=== PATIENT | female | born 1985 ===

== ENCOUNTER 2016-12-05 08:02 | Day surgery (SDC) | payer OTHER ==
[2016-12-05 08:30] VITALS: BMI 24.8
[2016-12-05] MEDS ORDERED: Propofol 10 mg/ml Inj (20 ML) ONE (09:44)
[2016-12-05] MEDS ORDERED: Lactated Ringer's 1,000 ML IV SCH (09:45)
[2016-12-07 15:20] VITALS: O2SAT 100
[2016-12-07 15:27] VITALS: RESP 18
[2016-12-07 15:29] VITALS: BP 95/59; PULSE 55; TEMP 97.8
== END 2016-12-05 11:20 | disposition home or self-care (01) ==
LOC: C.ENDO 08:02
PROVIDERS: ATTEND Internal Medicine Gastroenterology
DX: R13.10 Dysphagia, unspecified (principal); K29.70 Gastritis, unspecified, without bleeding; E03.9 Hypothyroidism, unspecified
CPT/HCPCS: 43239; 84703; 88305; 88312; 88313 ×2; 88342 ×2; J2704; J7120

== ENCOUNTER 2016-12-12 03:46 | Observation (INO) | payer OTHER ==
[2016-12-12 03:46] VITALS: BMI 24.8
[2016-12-12 03:58] VITALS: O2SAT 100
[2016-12-12] MEDS ORDERED: Sodium Chloride 0.9% 1,000 ML IV STA (04:35)
[2016-12-12 05:17] LABS: BASO % 0.8 % (0.0-2.0); EOS # 0.3 K/uL (0.0-0.7); EOS % 4.1 % (0.0-4.0); HEMATOCRIT 40.7 % (34.0-47.0); LYMPH # 2.2 K/uL (1.0-4.3); LYMPH % 34.2 % (20.0-40.0); MEAN CELL VOLUME 91.5 fL (81.0-99.0); MEAN CORPUSCULAR HEMOGLOBIN 30.6 pg (27.0-31.0); MEAN CORPUSCULAR HGB CONC 33.5 g/dL (33.0-37.0); MEAN PLATELET VOLUME 8.9 fL (7.2-11.7); MONO # 0.4 K/uL (0.0-0.8); RED CELL DISTRIBUTION WIDTH 12.2 % (11.5-14.5); WHITE BLOOD COUNT 6.4 K/uL (4.8-10.8)
[2016-12-12 05:20] LABS: RBC URINE < 1 /hpf (0-3); URINE BILIRUBIN NEGATIVE (NEGATIVE); URINE BLOOD NEGATIVE (NEGATIVE); URINE COLOR Straw (YELLOW); URINE GLUCOSE (UA) NORMAL (Normal); URINE KETONE NEGATIVE (NEGATIVE); URINE LEUKOCYTE ESTERASE NEG Leu/uL (Negative); URINE PROTEIN NEGATIVE (NEGATIVE); URINE UROBILINOGEN NORMAL mg/dL (0.2-1.0); WBC URINE 1 /hpf (0-5)
[2016-12-12 05:26] LABS: CHLORIDE 101 mmol/L (98-107); POTASSIUM 3.8 mmol/L (3.6-5.2); SODIUM 138 mmol/L (132-148)
[2016-12-12 05:28] LABS: ALB/GLOB RATIO 1.1 (1.0-2.1); ALKALINE PHOSPHATASE 49 U/L (38-126); ALT/SGPT 26 U/L (9-52); AMYLASE 92 U/L (30-110); AST/SGOT 23 U/L (14-36); BILIRUBIN,TOTAL 0.6 mg/dL (0.2-1.3); BLOOD UREA NITROGEN 12 mg/dL (7-17); CARBON DIOXIDE 26 mmol/L (22-30); GFR AFRICAN-AMERICAN > 60; GLUCOSE,RANDOM 91 mg/dL (65-105); TOTAL PROTEIN 7.9 g/dL (6.3-8.3)
[2016-12-12 05:29] LABS: CALCIUM 8.8 mg/dl (8.6-10.4)
--- NOTE | 2016-12-12 05:43 | C.PDOC ---
History Of Present Illness Patient is a 31 year old female that presents to the ER with a complaint of constipation, nausea, and abdominal pain for the past week. Patient states she has a history of hypothyroidism and constipation. Patient reports being admitted from the to the 10 of September last year for a surgical procedure that would help alleviate her constipation, performed by Dr. Nguyen. Denies any fever, chills, or vomiting. Time Seen by Provider: 12/12/16 04:16 Chief Complaint (Nursing): Abdominal Pain History Per: Patient History/Exam Limitations: no limitations Onset/Duration Of Symptoms: Days (1 week) Current Symptoms Are (Timing): Still Present Location Of Pain/Discomfort: RLQ, Periumbilical Associated Symptoms: Nausea, Constipation. denies: Fever, Chills, Vomiting, Diarrhea Past Medical History Reviewed: Historical Data, Nursing Documentation, Vital Signs Vital Signs: Last Vital Signs Temp 98.3 F 12/12/16 03:55 Pulse 64 12/12/16 03:55 Resp 16 12/12/16 03:55 BP 130/90 12/12/16 03:55 Pulse Ox 100 12/12/16 05:53 - Medical History PMH: Hypothyroidism, Migraine Surgical History: Endoscopy - [facility] Procedures IRRIGATION OF LOWER GI USING IRRIGATING SUBSTANCE, ENDO (09/05/16) Family History: States: Unknown Family Hx - Social History Hx Tobacco Use: No Hx Alcohol Use: No Hx Substance Use: No - Immunization History Hx Tetanus Toxoid Vaccination: Yes Hx Influenza Vaccination: Yes Hx Pneumococcal Vaccination: No Review Of Systems Except As Marked, All Systems Reviewed And Found Negative. Constitutional: Negative for: Fever, Chills Cardiovascular: Negative for: Chest Pain, Palpitations Respiratory: Negative for: Cough, Shortness of Breath Gastrointestinal: Positive for: Nausea, Abdominal Pain, Constipation. Negative for: Vomiting, Diarrhea Physical Exam - Physical Exam Appears: Non-toxic Skin: Normal Color, Warm, Dry Head: Atraumatic, Normacephalic Eye(s): bilateral: Normal Inspection Oral Mucosa: Moist Tongue: Normal Appearing Chest: Symmetrical Cardiovascular: Rhythm Regular Respiratory: Normal Breath Sounds, No Rales, No Rhonchi, No Wheezing Gastrointestinal/Abdominal: Soft, Tenderness (Periumbilical, right lower quadrant), No Distention, No Guarding, No Rebound Neurological/Psych: Oriented x3, Normal Speech, Normal Cognition ED Course And Treatment - Laboratory Results Result Diagrams: 12/12/16 05:14 12/12/16 05:14 O2 Sat by Pulse Oximetry: 100 (Room air) Pulse Ox Interpretation: Normal Progress Note: Blood work and abdomen x-ray ordered. IV fluids administered. Disposition - Disposition Disposition Time: 06:58 Condition: FAIR - Clinical Impression Clinical Impression: Constipation, Abdominal pain - Scribe Statement The provider has reviewed the documentation as recorded by the Scribe Puneet Oliveira All medical record entries made by the Misaibe were at my direction and personally dictated by me. I have reviewed the chart and agree that the record accurately reflects my personal performance of the history, physical exam, medical decision making, and the department course for this patient. I have also personally directed, reviewed, and agree with the discharge instructions and disposition. Physician Patient Turnover Patient Signed Over To: Skye Kent Handoff Comments: CT abdomen and dispo are pending
[2016-12-12 05:59] LABS: THYROID STIMULATING HORMONE < 0.02 mIU/L (0.46-4.68)
[2016-12-12] MEDS ORDERED: Iohexol 240 (50 ml) PO STA (06:08)
[2016-12-12] MEDS ORDERED: Iohexol 240 (50 ml) ONE (06:21)
--- NOTE | 2016-12-12 08:58 | RAD ---
Abdomen two views History: Pain. Constipation. Comparison: None available. Findings: Moderate to severe fecal retention in the colon. No evidence of gross bowel obstruction. Impression: Moderate to severe fecal retention in the colon.
[2016-12-12] MEDS ORDERED: Iodixanol 320 MG/ML 100 ML BOTTLE IV ONE (09:32)
--- NOTE | 2016-12-12 10:34 | CT ---
PROCEDURE: CT Abdomen and Pelvis with oral and IV contrast. HISTORY: RLQ abd pain, nausea, constipation COMPARISON: CT abdomen and pelvis with contrast performed 09/06/16 TECHNIQUE: Contiguous axial images of the abdomen and pelvis. Oral and IV contrast was administered. Coronal and Sagittal reformats generated and reviewed. Contrast dose: 100 mL Visipaque Radiation dose: Total exam DLP = 441.02 MGy-cm. FINDINGS: LOWER THORAX: No visible consolidation, pleural effusion, or pneumothorax. LIVER: 1.5 cm hepatic dome hypodensity, indeterminate. Diffuse hypoattenuation of the liver compatible with hepatic steatosis. GALLBLADDER AND BILE DUCTS: Unremarkable. PANCREAS: Unremarkable. SPLEEN: Unremarkable. ADRENALS: Unremarkable. KIDNEYS AND URETERS: The kidneys enhance symmetrically. Mild hydronephrosis and hydroureter of the right kidney without obstructing calculus identified. The left kidney appears unremarkable. BLADDER: The urinary bladder appears unremarkable. REPRODUCTIVE: Uterus is present. 1.9 cm cystic lesion, likely right ovarian cyst. APPENDIX: The appendix appears within normal limits of caliber without evidence of obstruction. BOWEL: The stomach is nondistended. The bowel loops appear within normal limits of caliber without evidence of intestinal obstruction. Severe constipation. The sigmoid colon appears redundant. Question region of narrowing involving the left colon (coronal image 66) PERITONEUM: No significant free fluid. No definite free air. LYMPH NODES: No bulky lymphadenopathy identified. VASCULATURE: No aortic aneurysm. BONES: No acute osseous abnormality is detected. OTHER FINDINGS: Tiny fat containing umbilical hernia. Small hiatal hernia with evidence of gastroesophageal reflux. IMPRESSION: Severe constipation. Question region of colonic narrowing within the left colon as above. Mild right-sided hydronephrosis and hydroureter without obstructing calculus evident. Hepatic steatosis. Indeterminate 1.5 cm hepatic dome hypodensity. Probable 1.9 cm right ovarian cyst. Pelvic ultrasound may be considered for further evaluation. Small hiatal hernia with evidence of gastroesophageal reflux.
[2016-12-12 13:29] VITALS: RESP 18
[2016-12-12] MEDS ORDERED: Peg-Electrolyte Oral Soln 4L (Golytely) PO ONE (15:08)
[2016-12-12 16:42] VITALS: BP 106/58; PULSE 62; TEMP 98.6
== END 2016-12-12 16:35 | disposition home or self-care (01) ==
LOC: C.ER 03:46 → C.9E 15:29
PROVIDERS: ADMIT Hospitalist; ATTEND Hospitalist
DX: R10.31 Right lower quadrant pain (principal); K59.00 Constipation, unspecified; E03.9 Hypothyroidism, unspecified
CPT/HCPCS: 74000; 74177; 80053; 81001; 82150; 83690; 84439; 84443; 85025; 96374; 99285; G0378; J1885; J7040; Q9966; Q9967

== ENCOUNTER 2017-02-24 14:14 | Inpatient (IN) | payer OTHER ==
[2017-02-24 14:15] VITALS: BMI 26.4
--- NOTE | 2017-02-24 15:36 | C.PDOC ---
History Of Present Illness 32 year old female presents to the ED with complaints of constipation for 18 days with associated nausea and vomiting. Patient states she was sent to the ED from the clinic for further evaluation since extensive medical treatment has been given with no relief. She also notes she has been unable to tolerate food or drink PO for three days. She notes history of thyroid disease and denies any past surgeries, diarrhea, or fever. Time Seen by Provider: 02/24/17 14:35 Chief Complaint (Nursing): Abdominal Pain History Per: Patient, Family History/Exam Limitations: no limitations Onset/Duration Of Symptoms: Persistent (18 days ) Current Symptoms Are (Timing): Still Present Location Of Pain/Discomfort: Diffuse Radiation Of Pain To:: None Quality Of Discomfort: "Pain" Associated Symptoms: Nausea, Vomiting, Constipation. denies: Fever, Chills, Diarrhea Abnormal Vaginal Bleeding: No Past Medical History Reviewed: Historical Data, Nursing Documentation, Vital Signs Vital Signs: Last Vital Signs Temp 98.4 F 02/24/17 14:26 Pulse 67 02/24/17 14:26 Resp 18 02/24/17 14:26 BP 109/74 02/24/17 14:26 Pulse Ox 100 02/24/17 17:58 - Medical History PMH: Hypothyroidism, Migraine Surgical History: Endoscopy - [facility] Procedures IRRIGATION OF LOWER GI USING IRRIGATING SUBSTANCE, ENDO (09/05/16) Family History: States: Unknown Family Hx - Social History Hx Tobacco Use: No Hx Alcohol Use: No Hx Substance Use: No - Immunization History Hx Tetanus Toxoid Vaccination: Yes Hx Influenza Vaccination: Yes Hx Pneumococcal Vaccination: No Review Of Systems Constitutional: Negative for: Fever, Chills, Sweats Cardiovascular: Negative for: Chest Pain, Palpitations Respiratory: Negative for: Cough, Shortness of Breath Gastrointestinal: Positive for: Nausea, Vomiting, Abdominal Pain, Constipation. Negative for: Diarrhea Genitourinary: Positive for: Other (Patient notes urination requires force ). Negative for: Hematuria Physical Exam - Physical Exam Additional Physical Exam Comments: Constitutional: No acute distress. Head: Normocephalic. Atraumatic. Eyes: PERRL. ENT: Moist mucous membranes. Neck: Supple. Cardiovascular: Regular rate. Radial pulse 2+ bilaterally. Chest: No tenderness. Respiratory: Clear to auscultation bilaterally. GI: Soft. Diffuse abdominal tenderness. Nondistended. Back: No CVA tenderness. Musculoskeletal: No tenderness or swelling of extremities. Skin: No rash. Neurologic: Alert, no focal deficit. ED Course And Treatment - Laboratory Results Result Diagrams: 02/24/17 15:41 02/24/17 15:41 O2 Sat by Pulse Oximetry: 100 Medical Decision Making Medical Decision Making: Spoke with clinical psychiatrist Dr. Archuleta who saw patient in the clinic. A biopsy performed confirmed a constipation disease and extensive medicine therapy was given with no relief. Patient has had previous rigid sigmoidoscopy in the past. Dr. Archuleta recommends CT of the abdomen to rule out obstruction and inpatient treatment for constipation since outpatient has failed. Accession No. : [id number] Patient Name / ID : SIXTO MCLAUGHLIN / [id number] Exam Date : 02/24/2017 17:52:01 ( Approved ) Study Comment : Sex / Age : F / 32Y Creator : CARLOS MANUEL JONES MD Dictator : CARLOS MANUEL JONES MD Cardiovascular Radiologic Technologist : Scalehouse Attendant : CARLOS MANUEL JONES MD Approver2 : Report Date : 02/24/2017 18:24:39 My Comment : PROCEDURE: CT Abdomen and Pelvis with contrast HISTORY: constipation, r/o obstruction COMPARISON: 12/12/2016 TECHNIQUE: Contrast dose: 100 CC Visipaque the 320 Radiation dose: Total exam DLP = mGy-cm. This CT exam was performed using one or more of the following dose reduction techniques: Automated exposure control, adjustment of the mA and/or kV according to patient size, and/or use of iterative reconstruction technique. FINDINGS: LOWER THORAX: The lung bases are clear. LIVER: There is a stable 1.6 cm hyperdense lesion in the hepatic dome. The liver is normal in size. There is homogeneous enhancement. No intra or extrahepatic biliary ductal dilatation. GALLBLADDER AND BILE DUCTS: No calcified gallstones. PANCREAS: The pancreas is normal in size and there is homogeneous enhancement. No gross lesion or ductal dilatation. SPLEEN: The spleen is normal in size and there is homogeneous enhancement. ADRENALS: Both adrenal glands are normal in size without discrete nodule. KIDNEYS AND URETERS: Both kidneys are normal in size and there is homogeneous enhancement without hydronephrosis or focal mass. VASCULATURE: Normal in appearance. No aortic aneurysm. BOWEL: The small bowel loops are normal in caliber. There is large amount of stool in the colon and fecal retention in antral redundant sigmoid. No evidence of bowel obstruction APPENDIX: Normal appendix. PERITONEUM: No free fluid. No free air. LYMPH NODES: No enlarged lymph nodes. BLADDER: Grossly within normal limits hair. REPRODUCTIVE: Unremarkable. BONES: No acute fracture. OTHER FINDINGS: None. IMPRESSION: 1. Severe constipation with fecal retention in the redundant sigmoid colon. No evidence of bowel obstruction. 2. Stable 1.6 cm lesion in the hepatic dome which may represent a complicated cyst or hemangioma. A dedicated right upper quadrant ultrasound is recommended for further characterization. Dr. Ugalde accepts patient to hospitalist service. I informed her that Dr. Archuleta' s group will be GI consult and patient will need surgical consult for further recommendations. ED OBSERVATION Date of observation admission: 02/24/17 Time of observation admission: 15:11 - Observation admission statement Patient is being placed in observation because:: constipation - Goals of Observation Goals of observation are:: monitoring prior to CT abdomen - Progress Note Progress Note: 1511 Will draw labs and send for CT. [address] Patient in no acute distress. 1758 CT performed, pending read. Labs unremarkable. Disposition - Disposition Disposition: HOSPITALIZED Disposition Time: 18:32 Condition: FAIR - Clinical Impression Clinical Impression: Constipation, Failure of outpatient treatment - Scribe Statement The provider has reviewed the documentation as recorded by the Misaibwilla Stein All medical record entries made by the Maribell were at my direction and personally dictated by me. I have reviewed the chart and agree that the record accurately reflects my personal performance of the history, physical exam, medical decision making, and the department course for this patient. I have also personally directed, reviewed, and agree with the discharge instructions and disposition.
[2017-02-24 15:45] LABS: BASO % 0.6 % (0.0-2.0); EOS # 0.1 K/uL (0.0-0.7); EOS % 1.7 % (0.0-4.0); HEMATOCRIT 37.1 % (34.0-47.0); LYMPH % 26.1 % (20.0-40.0); MEAN CELL VOLUME 90.9 fL (81.0-99.0); MEAN CORPUSCULAR HEMOGLOBIN 30.9 pg (27.0-31.0); MEAN PLATELET VOLUME 8.8 fL (7.2-11.7); MONO # 0.4 K/uL (0.0-0.8); MONO % 5.2 % (0.0-10.0); RED CELL DISTRIBUTION WIDTH 12.6 % (11.5-14.5); WHITE BLOOD COUNT 7.7 K/uL (4.8-10.8)
[2017-02-24 15:53] LABS: CHLORIDE 101 mmol/L (98-107)
[2017-02-24 15:54] LABS: POTASSIUM 4.3 mmol/L (3.6-5.2); SODIUM 136 mmol/L (132-148)
[2017-02-24 15:56] LABS: ALB/GLOB RATIO 1.5 (1.0-2.1); ALKALINE PHOSPHATASE 53 U/L (38-126); ALT/SGPT 25 U/L (9-52); AST/SGOT 22 U/L (14-36); BILIRUBIN,TOTAL 0.8 mg/dL (0.2-1.3); BLOOD UREA NITROGEN 19 mg/dL (7-17); CARBON DIOXIDE 22 mmol/L (22-30); GFR AFRICAN-AMERICAN > 60; GLUCOSE,RANDOM 62 mg/dL (65-105); RBC URINE 1 /hpf (0-3); TOTAL PROTEIN 7.6 g/dL (6.3-8.3); URINE BILIRUBIN NEGATIVE (NEGATIVE); URINE BLOOD NEGATIVE (NEGATIVE); URINE COLOR Yellow (YELLOW); URINE GLUCOSE (UA) NORMAL (Normal); URINE KETONE 2+ mg/dL (NEGATIVE); URINE LEUKOCYTE ESTERASE 2+ Leu/uL (Negative); URINE PROTEIN 1+ mg/dL (NEGATIVE); URINE UROBILINOGEN NORMAL mg/dL (0.2-1.0); WBC URINE 22 /hpf (0-5)
[2017-02-24 15:57] LABS: CALCIUM 8.8 mg/dl (8.6-10.4)
[2017-02-24] MEDS ORDERED: Iodixanol 320 MG/ML 100 ML BOTTLE IV ONE (17:37)
--- NOTE | 2017-02-24 18:26 | CT ---
PROCEDURE: CT Abdomen and Pelvis with contrast HISTORY: constipation, r/o obstruction COMPARISON: 12/12/2016 TECHNIQUE: Contrast dose: 100 CC Visipaque the 320 Radiation dose: Total exam DLP = mGy-cm. This CT exam was performed using one or more of the following dose reduction techniques: Automated exposure control, adjustment of the mA and/or kV according to patient size, and/or use of iterative reconstruction technique. FINDINGS: LOWER THORAX: The lung bases are clear. LIVER: There is a stable 1.6 cm hyperdense lesion in the hepatic dome. The liver is normal in size. There is homogeneous enhancement. No intra or extrahepatic biliary ductal dilatation. GALLBLADDER AND BILE DUCTS: No calcified gallstones. PANCREAS: The pancreas is normal in size and there is homogeneous enhancement. No gross lesion or ductal dilatation. SPLEEN: The spleen is normal in size and there is homogeneous enhancement. ADRENALS: Both adrenal glands are normal in size without discrete nodule. KIDNEYS AND URETERS: Both kidneys are normal in size and there is homogeneous enhancement without hydronephrosis or focal mass. VASCULATURE: Normal in appearance. No aortic aneurysm. BOWEL: The small bowel loops are normal in caliber. There is large amount of stool in the colon and fecal retention in antral redundant sigmoid. No evidence of bowel obstruction APPENDIX: Normal appendix. PERITONEUM: No free fluid. No free air. LYMPH NODES: No enlarged lymph nodes. BLADDER: Grossly within normal limits hair. REPRODUCTIVE: Unremarkable. BONES: No acute fracture. OTHER FINDINGS: None. IMPRESSION: 1. Severe constipation with fecal retention in the redundant sigmoid colon. No evidence of bowel obstruction. 2. Stable 1.6 cm lesion in the hepatic dome which may represent a complicated cyst or hemangioma. A dedicated right upper quadrant ultrasound is recommended for further characterization.
--- NOTE | 2017-02-24 19:30 | CP.PCM.HP ---
<Tasha Houston - Last Filed: 02/24/17 21:11> History of Present Illness - History of Present Illness History of Present Illness: CC: abdominal pain with constipation HPI: 32 yo female with PMHx significant for hypothyroidism and recurrent constipation presents with complaints of abdominal pain and constipation for approximately 18-20 days. The pain is crampy and sharp located diffusely all over the abdomen rated a 10/11 in intensity. Patient has been severely constipated with now new onset nausea and vomiting associated with meals for the past couple of days while on Linzess therapy. Patient was evaluated in the GI clinic today by Dr. Astudillo who later referred her to the ED due to failed outpatient therapy. Patient states that she is limited to sips of soup and a few bites of rice. Patient states that the pain is uncomfortable, limiting her from daily activities. She also admits to two recent episodes of dysuria. She admits to losing eight pounds in the past two weeks due to her symptoms. She denies urinary frequency or urgency. She also denied headaches, chest pain, palpitations, paresthesias, hematemesis, hematochezia, diarrhea, subjective fevers or chills or recent travel at this time. PMHx: hypothyroidism, recurrent constipation PSHx: denies Fam Hx: Paternal grandfather has DM, Paternal grandmother had an AL, Paternal uncle with Lung CA Medications: Levothyroxine 175 mcg daily, Linzess 290 mcg once a day ( past two weeks) Allergies: NKDA, nor food allegies Social: denies ever smoking or using illicit drugs, she admits to last drinking alcohol on a social basis approx 4 years ago. PMD- None GI: Dr. Astudillo Present on Admission - Present on Admission Any Indicators Present on Admission: No Review of Systems - Constitutional Constitutional: Chills. absent: Fever, Frequent Falls, Headache, Increased Appetite - EENT Eyes: absent: Blurred Vision, Change in Vision Nose/Mouth/Throat: absent: Nasal Congestion - Cardiovascular Cardiovascular: absent: Chest Pain - Respiratory Respiratory: absent: Cough, Dyspnea - Gastrointestinal Gastrointestinal: Abdominal Pain, Constipation, Nausea, Vomiting. absent: Diarrhea - Genitourinary Genitourinary: Dysuria. absent: Difficulty Urinating, Urinary Frequency - Musculoskeletal Musculoskeletal: Back Pain - Integumentary Integumentary: Unusual Bruising - Neurological Neurological: absent: Paresthesias, Tingling - Psychiatric Psychiatric: absent: Anxiety - Endocrine Endocrine: absent: Change in Body Appearance - Hematologic/Lymphatic Hematologic: Easy Bruising Past Patient History - Infectious Disease Hx of Infectious Diseases: None - Past Medical History & Family History Past Medical History?: No - Past Social History Smoking Status: Never Smoked Alcohol: Occasional - CARDIAC Hx Cardiac Disorders: No - PULMONARY Hx Respiratory Disorders: No - NEUROLOGICAL Hx Migraine: Yes - HEENT Hx HEENT Problems: No - RENAL Hx Chronic Kidney Disease: No - ENDOCRINE/METABOLIC Hx Hypothyroidism: Yes - HEMATOLOGICAL/ONCOLOGICAL Hx Blood Disorders: No Hx Blood Transfusions: No - INTEGUMENTARY Hx Dermatological Problems: No - MUSCULOSKELETAL/RHEUMATOLOGICAL Hx Musculoskeletal Disorders: Yes Hx Back Pain: Yes - GASTROINTESTINAL Hx Gastrointestinal Disorders: Yes Other/Comment: CONSTIPATION - GENITOURINARY/GYNECOLOGICAL Hx Genitourinary Disorders: No - PSYCHIATRIC Hx Substance Use: No - SURGICAL HISTORY Hx Surgeries: No - ANESTHESIA Hx Anesthesia: Yes Hx Anesthesia Reactions: No Hx Malignant Hyperthermia: No (UNKNOWN) Meds Allergies/Adverse Reactions: Allergies Allergy/AdvReac Type Severity Reaction Status Date / Time No Known Allergies Allergy Verified 02/24/17 14:33 Physical Exam - Constitutional Appears: Non-toxic, No Acute Distress - Head Exam Head Exam: ATRAUMATIC, NORMAL INSPECTION, NORMOCEPHALIC - Eye Exam Eye Exam: EOMI, Normal appearance, PERRL. absent: Scleral icterus Pupil Exam: NORMAL ACCOMODATION, PERRL - ENT Exam ENT Exam: Mucous Membranes Moist - Neck Exam Neck exam: Positive for: Full Rom - Respiratory Exam Respiratory Exam: Clear to Auscultation Bilateral, NORMAL BREATHING PATTERN. absent: Wheezes - Cardiovascular Exam Cardiovascular Exam: REGULAR RHYTHM, +S1, +S2 - GI/Abdominal Exam GI & Abdominal Exam: Normal Bowel Sounds, Soft, Tenderness (diffuse). absent: Distended, Firm, Guarding Additional comments: suprapubic tenderness - Extremities Exam Extremities exam: Positive for: full ROM, normal capillary refill, normal inspection, pedal pulses present - Back Exam Back exam: FULL ROM. absent: CVA tenderness (L), CVA tenderness (R) - Neurological Exam Neurological exam: Alert, CN II-XII Intact, Oriented x3 - Psychiatric Exam Psychiatric exam: Normal Affect, Normal Mood - Skin Skin Exam: Dry, Intact, Normal Color, Warm Results - Vital Signs Recent Vital Signs: Last Vital Signs Temp 97.4 F L 02/24/17 18:40 Pulse 87 02/24/17 18:40 Resp 20 02/24/17 18:40 BP 98/65 L 02/24/17 18:40 Pulse Ox 97 02/24/17 18:40 - Labs Result Diagrams: 02/24/17 15:41 02/24/17 15:41 Labs: Laboratory Results - last 24 hr 02/24/17 02/24/17 02/24/17 15:41 15:41 15:41 WBC 7.7 RBC 4.08 Hgb 12.6 Hct 37.1 MCV 90.9 MCH 30.9 MCHC 34.0 RDW 12.6 Plt Count 212 MPV 8.8 Neut % (Auto) 66.4 Lymph % (Auto) 26.1 Amelia % (Auto) 5.2 Eos % (Auto) 1.7 Baso % (Auto) 0.6 Neut # 5.1 Lymph # 2.0 Amelia # 0.4 Eos # 0.1 Baso # 0.0 Sodium 136 Potassium 4.3 Chloride 101 Carbon Dioxide 22 Anion Gap 17 BUN 19 H Creatinine 0.6 L Est GFR ( Amer) > 60 Est GFR (Non-Af Amer) > 60 Random Glucose 62 L Calcium 8.8 Total Bilirubin 0.8 AST 22 ALT 25 Alkaline Phosphatase 53 Total Protein 7.6 Albumin 4.6 Globulin 3.0 Albumin/Globulin Ratio 1.5 Lipase 65 Urine Color Yellow Urine Clarity Hazy Urine pH 5.0 Ur Specific Conklin 1.027 Urine Protein 1+ H Urine Glucose (UA) Normal Urine Ketones 2+ H Urine Blood Negative Urine Nitrate Negative Urine Bilirubin Negative Urine Urobilinogen Normal Ur Leukocyte Esterase 2+ H Urine WBC (Auto) 22 H Urine RBC (Auto) 1 Ur Squamous Epith Cells 15 H Urine HCG, Qual Negative Assessment & Plan (1) Constipation Assessment and Plan: Recurrent constipation- Failed outpatient therapy CT abdomen and pelvis- findings of severe constipation with fecal retention in sigmoid colon- Refer to complete report GI Dr. Day consulted- F/U Surgery- Dr. Nguyen consulted- F/U Fleet Enemas ordered Go-lytely ordered Monitor for BMs Status: Chronic (2) Abdominal pain Assessment and Plan: Recurrent constipation CT abdomen and pelvis- findings of severe constipation with fecal retention in sigmoid colon- Refer to complete report F/U executive talent acquisition consultant recommendations Zofran PRN Toradol 15 mg Q6 PRN for pain Status: Acute (3) Abnormal urinalysis Assessment and Plan: Dirty catch Repeat UA and UC- F/U Status: Acute (4) Hypothyroidism Assessment and Plan: Levothyroxine 175 mcg daily F/U thyroid studies in AM Status: Chronic (5) Prophylactic measure Assessment and Plan: SCDs Pepcid 20 mg IV Q12 Cont to monitor for BMs Status: Acute <Ede Radford - Last Filed: 02/25/17 06:23> Results - Vital Signs Recent Vital Signs: Last Vital Signs Temp 98.5 F 02/25/17 00:00 Pulse 68 02/25/17 00:00 Resp 20 02/25/17 00:00 BP 110/64 02/25/17 00:00 Pulse Ox 96 02/25/17 00:00 - Labs Result Diagrams: 02/24/17 15:41 02/24/17 15:41 Assessment & Plan - Date & Time Date: 02/25/17 (I have seen and examined the patient. I agree with the findings and plan of care as documented by Dr. Houston. Patient with constipation and prior history of severe constipation. Failed outpatient therapy. Consult to GI and surgery. Fleet enema and Go Lytely. Accompanied with abdominal pain. Avoid opiates. For history of hypothyroidism, continue home meds. Check TSH and thyroid hormone levels. Monitor for acute changes.) Time: 06:21 Attending/Attestation - Attestation I have personally seen and examined this patient.: Yes I have fully participated in the care of the patient.: Yes I have reviewed all pertinent clinical information: Yes
[2017-02-24] MEDS ORDERED: Peg-Electrolyte Oral Soln 4L (Golytely) PO ONE (20:48)
--- NOTE | 2017-02-24 21:29 | CP.PCM.CON ---
Past Patient History - Infectious Disease Hx of Infectious Diseases: None - Past Medical History & Family History Past Medical History?: No - Past Social History Smoking Status: Never Smoked Alcohol: Occasional - CARDIAC Hx Cardiac Disorders: No - PULMONARY Hx Respiratory Disorders: No - NEUROLOGICAL Hx Migraine: Yes - HEENT Hx HEENT Problems: No - RENAL Hx Chronic Kidney Disease: No - ENDOCRINE/METABOLIC Hx Hypothyroidism: Yes - HEMATOLOGICAL/ONCOLOGICAL Hx Blood Disorders: No Hx Blood Transfusions: No - INTEGUMENTARY Hx Dermatological Problems: No - MUSCULOSKELETAL/RHEUMATOLOGICAL Hx Musculoskeletal Disorders: Yes Hx Back Pain: Yes - GASTROINTESTINAL Hx Gastrointestinal Disorders: Yes Other/Comment: CONSTIPATION - GENITOURINARY/GYNECOLOGICAL Hx Genitourinary Disorders: No - PSYCHIATRIC Hx Substance Use: No - SURGICAL HISTORY Hx Surgeries: No - ANESTHESIA Hx Anesthesia: Yes Hx Anesthesia Reactions: No Hx Malignant Hyperthermia: No (UNKNOWN) Meds Allergies/Adverse Reactions: Allergies Allergy/AdvReac Type Severity Reaction Status Date / Time No Known Allergies Allergy Verified 02/24/17 14:33 - Medications Medications: Current Medications Famotidine (Pepcid) 20 mg IVP Q12 [facility] Ketorolac Tromethamine (Toradol) 15 mg IVP Q6 PRN PRN Reason: Pain, moderate (4-7) Levothyroxine Sodium (Synthroid) 175 mcg PO DAILY@0630 [facility] Ondansetron HCl (Zofran Inj) 4 mg IVP Q6H PRN PRN Reason: Nausea/Vomiting Sodium Phosphate (Fleet Enema) 135 ml [place] Q3H PRN Stop: 02/24/17 23:59 Results - Vital Signs Recent Vital Signs: Last Vital Signs Temp 98.9 F 02/24/17 20:10 Pulse 72 02/24/17 20:10 Resp 16 02/24/17 20:10 BP 102/69 02/24/17 20:10 Pulse Ox 99 02/24/17 20:10 - Labs Result Diagrams: 02/24/17 15:41 02/24/17 15:41
[2017-02-25 00:30] VITALS: RESP 20
[2017-02-25] MEDS: Levothyroxine 175 MCG TAB PO SCH (05:57)
[2017-02-25 07:00] LABS: BASO % 0.3 % (0.0-2.0); EOS # 0.1 K/uL (0.0-0.7); EOS % 1.5 % (0.0-4.0); HEMATOCRIT 36.2 % (34.0-47.0); LYMPH # 2.1 K/uL (1.0-4.3); LYMPH % 28.9 % (20.0-40.0); MEAN CELL VOLUME 90.2 fL (81.0-99.0); MEAN CORPUSCULAR HEMOGLOBIN 31.1 pg (27.0-31.0); MEAN CORPUSCULAR HGB CONC 34.4 g/dL (33.0-37.0); MEAN PLATELET VOLUME 8.9 fL (7.2-11.7); MONO # 0.4 K/uL (0.0-0.8); MONO % 5.9 % (0.0-10.0); RED CELL DISTRIBUTION WIDTH 12.5 % (11.5-14.5); WHITE BLOOD COUNT 7.4 K/uL (4.8-10.8)
--- NOTE | 2017-02-25 07:04 | CP.PCM.CON ---
History of Present Illness - History of Present Illness History of Present Illness: Gen Sx: Dr Nguyen CC: constipation Pt is a 32F w/ PMH significant for hypothyroidism and recurrent constipation. Pt known to service as she underwent disimpaction last decemeber. She presents with complaints of abdominal pain and constipation for approximately 18 days. The pain is cramping and mainly located in LLQ. Every time the pt eats she gets nauseous and vomits up her previous meals. She was recently started on Linzess therapy. Pt has lost close to 10 lbs over past 3 weeks because she has been unable to eat. Denies any hematemesis, hematochezia, diarrhea, fevers, chills, sob or cp. PMHx: hypothyroidism, recurrent constipation PSHx: denies Medications: Levothyroxine 175 mcg daily, Linzess 290 mcg daily Allergies: NKDA Review of Systems - Review of Systems All systems: reviewed and no additional remarkable complaints except (as per hpi ) Past Patient History - Infectious Disease Hx of Infectious Diseases: None - Past Medical History & Family History Past Medical History?: Yes - Past Social History Smoking Status: Never Smoked Alcohol: Occasional - CARDIAC Hx Cardiac Disorders: No - PULMONARY Hx Respiratory Disorders: No - NEUROLOGICAL Hx Migraine: Yes - HEENT Hx HEENT Problems: No - RENAL Hx Chronic Kidney Disease: No - ENDOCRINE/METABOLIC Hx Hypothyroidism: Yes - HEMATOLOGICAL/ONCOLOGICAL Hx Blood Disorders: No Hx Blood Transfusions: No - INTEGUMENTARY Hx Dermatological Problems: No - MUSCULOSKELETAL/RHEUMATOLOGICAL Hx Musculoskeletal Disorders: Yes Hx Back Pain: Yes - GASTROINTESTINAL Hx Gastrointestinal Disorders: Yes Other/Comment: CONSTIPATION - GENITOURINARY/GYNECOLOGICAL Hx Genitourinary Disorders: No - PSYCHIATRIC Hx Substance Use: No - SURGICAL HISTORY Hx Surgeries: No - ANESTHESIA Hx Anesthesia: Yes Hx Anesthesia Reactions: No Hx Malignant Hyperthermia: No (UNKNOWN) Meds Allergies/Adverse Reactions: Allergies Allergy/AdvReac Type Severity Reaction Status Date / Time No Known Allergies Allergy Verified 02/24/17 14:33 - Medications Medications: Current Medications Famotidine (Pepcid) 20 mg IVP Q12 [facility] Last Admin: 02/24/17 22:28 Dose: 20 mg Ketorolac Tromethamine (Toradol) 15 mg IVP Q6 PRN PRN Reason: Pain, moderate (4-7) Levothyroxine Sodium (Synthroid) 175 mcg PO DAILY@0630 [facility] Last Admin: 02/25/17 05:57 Dose: 175 mcg Ondansetron HCl (Zofran Inj) 4 mg IVP Q6H PRN PRN Reason: Nausea/Vomiting Physical Exam - Constitutional Appears: Non-toxic, No Acute Distress - Head Exam Head Exam: NORMOCEPHALIC - Respiratory Exam Respiratory Exam: absent: Accessory Muscle Use, Respiratory Distress - Cardiovascular Exam Cardiovascular Exam: REGULAR RHYTHM. absent: Tachycardia - GI/Abdominal Exam GI & Abdominal Exam: Guarding (voluntary), Mass (LLQ), Soft, Tenderness ( diffuse but worse in LLQ). absent: Distended, Firm - Rectal Exam Rectal Exam: Fecal Impaction - Extremities Exam Extremities exam: Negative for: pedal edema - Neurological Exam Neurological exam: Alert, Oriented x3 - Psychiatric Exam Psychiatric exam: Normal Affect, Normal Mood - Skin Skin Exam: Normal Color, Warm Results - Vital Signs Recent Vital Signs: Last Vital Signs Temp 98.5 F 02/25/17 00:00 Pulse 68 02/25/17 00:00 Resp 20 02/25/17 00:00 BP 110/64 02/25/17 00:00 Pulse Ox 96 02/25/17 00:00 - Labs Result Diagrams: 02/24/17 15:41 02/24/17 15:41 Assessment & Plan - Assessment and Plan (Free Text) Assessment: 32F with severe constipation Plan: attempted tap water enema, unsuccessful pt will likely require disimpaction may need prophylactic colectomy in future will d/r Dr Patrick Khan, PGY2 - Date & Time Date: 02/25/17 Time: 07:06
[2017-02-25 07:17] LABS: CHLORIDE 102 mmol/L (98-107)
[2017-02-25 07:18] LABS: SODIUM 135 mmol/L (132-148)
[2017-02-25 07:20] LABS: ALB/GLOB RATIO 1.3 (1.0-2.1); ALKALINE PHOSPHATASE 49 U/L (38-126); ALT/SGPT 13 U/L (9-52); AST/SGOT 19 U/L (14-36); BILIRUBIN,TOTAL 0.9 mg/dL (0.2-1.3); BLOOD UREA NITROGEN 15 mg/dL (7-17); CARBON DIOXIDE 19 mmol/L (22-30); GFR AFRICAN-AMERICAN > 60; GLUCOSE,RANDOM 70 mg/dL (65-105); TOTAL PROTEIN 7.1 g/dL (6.3-8.3)
[2017-02-25 07:21] LABS: CALCIUM 8.5 mg/dl (8.6-10.4); PHOSPHOROUS 4.8 mg/dL (2.5-4.5)
[2017-02-25 07:29] LABS: INR 1.1
[2017-02-25 07:58] LABS: THYROID STIMULATING HORMONE < 0.02 mIU/L (0.46-4.68)
[2017-02-25] MEDS ORDERED: Peg-Electrolyte Oral Soln 4L (Golytely) PO ONE (08:44)
--- NOTE | 2017-02-25 09:24 | CP.PCM.CON ---
<Lawson Moore - Last Filed: 02/25/17 09:25> History of Present Illness - History of Present Illness History of Present Illness: PGY4 GI Fellow Consult Note Patient is a 32yo female with PMHx significant for hypothyroidism and slow transit constipation who presents with abdominal pain and constipation. the patient is well known to our service and follows with our team in the [facility]. She has had multiple bouts of severe constipation previously and had an outpatient Sitz marker study which was positive. Patient was given Amitiza without relief and has been using Linzess over the past month or so with no real improvement in symptoms. She has tried supplementing these medications at home with enemas and milk of magnesia but has continued to suffer with constipation. At this time, she states that she hasn't had a BM in about 18 days and has developed severe, diffuse abdominal pain, nausea and daily bouts of vomiting. Admits to approximately 8lb weight loss and inability to tolerate PO. Separately, admits to persistence of dysphagia with difficulty swallowing solid food and sensation that food is getting stuck. Recent EGD was unremarkable. PMHx: See HPI PSHx: Denies FHx: Discussed with patient and denies any significant family history Social: Denies tobacco, EtOH or illict drug use Endo: EGD - 11/25 - Gastritis Colonoscopy - 05/27 - poor prep, internal hemorrhoids Review of Systems - Constitutional Constitutional: absent: Anorexia, Chills, Fever - EENT Eyes: absent: Change in Vision Nose/Mouth/Throat: absent: Sore Throat - Cardiovascular Cardiovascular: absent: Chest Pain, Dyspnea, Edema - Respiratory Respiratory: absent: Cough, Dyspnea, Excessive Mucous Production - Gastrointestinal Gastrointestinal: Abdominal Pain, Bloating, Constipation, Cramping, Dysphagia, Nausea, Vomiting. absent: Diarrhea, Hematemesis, Hematochezia, Melena, Odynophagia - Genitourinary Genitourinary: absent: Dysuria, Urinary Frequency, Urinary Urgency - Musculoskeletal Musculoskeletal: absent: Back Pain, Neck Pain - Integumentary Integumentary: absent: New Lesions, Rash - Neurological Neurological: absent: Dizziness, Numbness, Focal Weakness - Psychiatric Psychiatric: absent: Anxiety, Depression - Endocrine Endocrine: absent: Polydipsia, Polyphagia, Polyuria - Hematologic/Lymphatic Hematologic: absent: Easy Bleeding, Easy Bruising, Lymphadenopathy Past Patient History - Infectious Disease Hx of Infectious Diseases: None - Past Medical History & Family History Past Medical History?: Yes - Past Social History Smoking Status: Never Smoked Alcohol: Occasional - CARDIAC Hx Cardiac Disorders: No - PULMONARY Hx Respiratory Disorders: No - NEUROLOGICAL Hx Migraine: Yes - HEENT Hx HEENT Problems: No - RENAL Hx Chronic Kidney Disease: No - ENDOCRINE/METABOLIC Hx Hypothyroidism: Yes - HEMATOLOGICAL/ONCOLOGICAL Hx Blood Disorders: No Hx Blood Transfusions: No - INTEGUMENTARY Hx Dermatological Problems: No - MUSCULOSKELETAL/RHEUMATOLOGICAL Hx Musculoskeletal Disorders: Yes Hx Back Pain: Yes - GASTROINTESTINAL Hx Gastrointestinal Disorders: Yes Other/Comment: CONSTIPATION - GENITOURINARY/GYNECOLOGICAL Hx Genitourinary Disorders: No - PSYCHIATRIC Hx Substance Use: No - SURGICAL HISTORY Hx Surgeries: No - ANESTHESIA Hx Anesthesia: Yes Hx Anesthesia Reactions: No Hx Malignant Hyperthermia: No (UNKNOWN) Meds Allergies/Adverse Reactions: Allergies Allergy/AdvReac Type Severity Reaction Status Date / Time No Known Allergies Allergy Verified 02/24/17 14:33 - Medications Medications: Current Medications Bisacodyl (Dulcolax) 10 mg [place] BID [facility] Famotidine (Pepcid) 20 mg IVP Q12 [facility] Last Admin: 02/24/17 22:28 Dose: 20 mg Sodium Chloride (Sodium Chloride 0.9%) 1,000 mls @ 100 mls/hr IV .Q10H [facility] Ketorolac Tromethamine (Toradol) 15 mg IVP Q6 PRN PRN Reason: Pain, moderate (4-7) Levothyroxine Sodium (Synthroid) 175 mcg PO DAILY@0630 [facility] Last Admin: 02/25/17 05:57 Dose: 175 mcg Ondansetron HCl (Zofran Inj) 4 mg IVP Q6H PRN PRN Reason: Nausea/Vomiting Sodium Phosphate (Fleet Enema) 135 ml [place] Q3 [facility] Stop: 02/25/17 22:01 Physical Exam - Constitutional Appears: Non-toxic, No Acute Distress - Eye Exam Eye Exam: EOMI, PERRL - ENT Exam ENT Exam: Mucous Membranes Moist - Respiratory Exam Respiratory Exam: Clear to Auscultation Bilateral. absent: Rales, Rhonchi, Wheezes - Cardiovascular Exam Cardiovascular Exam: RRR, +S1, +S2 - GI/Abdominal Exam GI & Abdominal Exam: Normal Bowel Sounds, Soft, Tenderness (diffusely). absent : Distended, Firm, Guarding, Organomegaly, Rigid - Extremities Exam Extremities exam: Positive for: normal inspection. Negative for: pedal edema - Neurological Exam Neurological exam: Alert, Oriented x3 - Psychiatric Exam Psychiatric exam: Normal Affect, Normal Mood - Skin Skin Exam: Dry, Warm Results - Vital Signs Recent Vital Signs: Last Vital Signs Temp 98.5 F 02/25/17 00:00 Pulse 68 02/25/17 00:00 Resp 20 02/25/17 00:00 BP 110/64 02/25/17 00:00 Pulse Ox 96 02/25/17 00:00 - Labs Result Diagrams: 02/25/17 06:53 02/25/17 06:53 Labs: Laboratory Results - last 24 hr 02/25/17 02/25/17 02/25/17 06:53 06:53 06:53 WBC 7.4 RBC 4.01 Hgb 12.5 Hct 36.2 MCV 90.2 MCH 31.1 H MCHC 34.4 RDW 12.5 Plt Count 233 MPV 8.9 Neut % (Auto) 63.4 Lymph % (Auto) 28.9 [place] % (Auto) 5.9 Eos % (Auto) 1.5 Baso % (Auto) 0.3 Neut # 4.7 Lymph # 2.1 [place] # 0.4 Eos # 0.1 Baso # 0.0 PT 12.0 INR 1.1 APTT 31 Sodium 135 Potassium 4.0 Chloride 102 Carbon Dioxide 19 L Anion Gap 18 BUN 15 Creatinine 0.6 L Est GFR ( Amer) > 60 Est GFR (Non-Af Amer) > 60 Random Glucose 70 Calcium 8.5 L Phosphorus 4.8 H Magnesium 2.0 Total Bilirubin 0.9 AST 19 ALT 13 Alkaline Phosphatase 49 Total Protein 7.1 Albumin 4.0 Globulin 3.1 Albumin/Globulin Ratio 1.3 Free T4 Total T3 1.22 L TSH 3rd Generation < 0.02 L 02/25/17 06:53 WBC RBC Hgb Hct MCV MCH MCHC RDW Plt Count MPV Neut % (Auto) Lymph % (Auto) [place] % (Auto) Eos % (Auto) Baso % (Auto) Neut # Lymph # [place] # Eos # Baso # PT INR APTT Sodium Potassium Chloride Carbon Dioxide Anion Gap BUN Creatinine Est GFR ( Amer) Est GFR (Non-Af Amer) Random Glucose Calcium Phosphorus Magnesium Total Bilirubin AST ALT Alkaline Phosphatase Total Protein Albumin Globulin Albumin/Globulin Ratio Free T4 2.23 H Total T3 TSH 3rd Generation Assessment & Plan - Assessment and Plan (Free Text) Assessment: Patient is a 32yo female with PMHx significant for hypothyroidism and slow transit constipation who presents with abdominal pain and constipation. -Acute exacerbation of ongoing slow transit constipation -Hypothyroidism -Dysphagia with recent unremarkable EGD Plan: -Aggressive bowel regimen with Fleet enema Q3H and Dulcolax supp BID -Liquid diet as tolerated -Offered GoLytely bowel cleanse but patient refusing at this time -Recommend Endocrinology evaluation for hypothyroidism -Consider thyroid/neck imaging -Consider barium esophagram when patient less uncomfortable -Continue to monitor clinical course -No plan for endoscopic intervention - Date & Time Date: 02/25/17 Time: 07:10 <Sukhjinder Brand - Last Filed: 02/25/17 09:38> Meds - Medications Medications: Current Medications Bisacodyl (Dulcolax) 10 mg [place] BID [facility] Famotidine (Pepcid) 20 mg IVP Q12 [facility] Last Admin: 02/24/17 22:28 Dose: 20 mg Sodium Chloride (Sodium Chloride 0.9%) 1,000 mls @ 100 mls/hr IV .Q10H [facility] Ketorolac Tromethamine (Toradol) 15 mg IVP Q6 PRN PRN Reason: Pain, moderate (4-7) Levothyroxine Sodium (Synthroid) 175 mcg PO DAILY@0630 [facility] Last Admin: 02/25/17 05:57 Dose: 175 mcg Ondansetron HCl (Zofran Inj) 4 mg IVP Q6H PRN PRN Reason: Nausea/Vomiting Sodium Phosphate (Fleet Enema) 135 ml [place] Q3 [facility] Stop: 02/25/17 22:01 Results - Vital Signs Recent Vital Signs: Last Vital Signs Temp 98.5 F 02/25/17 00:00 Pulse 68 02/25/17 00:00 Resp 20 02/25/17 00:00 BP 110/64 02/25/17 00:00 Pulse Ox 96 02/25/17 00:00 - Labs Result Diagrams: 02/25/17 06:53 02/25/17 06:53 Labs: Laboratory Results - last 24 hr 02/25/17 02/25/17 02/25/17 06:53 06:53 06:53 WBC 7.4 RBC 4.01 Hgb 12.5 Hct 36.2 MCV 90.2 MCH 31.1 H MCHC 34.4 RDW 12.5 Plt Count 233 MPV 8.9 Neut % (Auto) 63.4 Lymph % (Auto) 28.9 [place] % (Auto) 5.9 Eos % (Auto) 1.5 Baso % (Auto) 0.3 Neut # 4.7 Lymph # 2.1 [place] # 0.4 Eos # 0.1 Baso # 0.0 PT 12.0 INR 1.1 APTT 31 Sodium 135 Potassium 4.0 Chloride 102 Carbon Dioxide 19 L Anion Gap 18 BUN 15 Creatinine 0.6 L Est GFR ( Amer) > 60 Est GFR (Non-Af Amer) > 60 Random Glucose 70 Calcium 8.5 L Phosphorus 4.8 H Magnesium 2.0 Total Bilirubin 0.9 AST 19 ALT 13 Alkaline Phosphatase 49 Total Protein 7.1 Albumin 4.0 Globulin 3.1 Albumin/Globulin Ratio 1.3 Free T4 Total T3 1.22 L TSH 3rd Generation < 0.02 L 02/25/17 06:53 WBC RBC Hgb Hct MCV MCH MCHC RDW Plt Count MPV Neut % (Auto) Lymph % (Auto) [place] % (Auto) Eos % (Auto) Baso % (Auto) Neut # Lymph # [place] # Eos # Baso # PT INR APTT Sodium Potassium Chloride Carbon Dioxide Anion Gap BUN Creatinine Est GFR ( Amer) Est GFR (Non-Af Amer) Random Glucose Calcium Phosphorus Magnesium Total Bilirubin AST ALT Alkaline Phosphatase Total Protein Albumin Globulin Albumin/Globulin Ratio Free T4 2.23 H Total T3 TSH 3rd Generation Attending/Attestation - Attestation I have personally seen and examined this patient.: Yes I have fully participated in the care of the patient.: Yes I have reviewed all pertinent clinical information: Yes Notes (Text): 02/25/17 09:36 32 year old female admitted with abdominal pain and severe constipation. 1. Slow transit constipation 2. Abdominal pain Plan: -patient has failed numerous outpatient constipation therapies including amitiza /linzess -she is admitted with abdominal pain and severe constipation -recommend aggresive lower GI bowel regimen as detailed above today -liquid diet -will reassess tomorrow -no role for endoscopic intervention
--- NOTE | 2017-02-25 12:37 | CP.PCM.PN ---
Subjective - Date & Time of Evaluation Date of Evaluation: 02/25/17 Time of Evaluation: 08:10 - Subjective Subjective: PGY1 progress note for Dr. Bustillo: Patient seen and examined. Patient states she has not had a bowel movement in over 18 days. Patient with complaint of tenderness of abdomen. Patient states she was told previously she needs to be on Miralax 3 times a day but was not taking as she could not tolerate that many doses. Objective - Vital Signs/Intake and Output Vital Signs (last 24 hours): Temp Pulse Resp BP Pulse Ox 98.5 F 68 20 110/64 96 02/25/17 00:00 02/25/17 00:00 02/25/17 00:00 02/25/17 00:00 02/25/17 00:00 Intake and Output: 02/25/17 02/25/17 06:59 18:59 Intake Total 300 Balance 300 - Medications Medications: Current Medications Bisacodyl (Dulcolax) 10 mg [place] BID [facility] Last Admin: 02/25/17 11:40 Dose: 10 mg Famotidine (Pepcid) 20 mg IVP Q12 [facility] Last Admin: 02/25/17 09:38 Dose: 20 mg Sodium Chloride (Sodium Chloride 0.9%) 1,000 mls @ 100 mls/hr IV .Q10H [facility] Ketorolac Tromethamine (Toradol) 15 mg IVP Q6 PRN PRN Reason: Pain, moderate (4-7) Levothyroxine Sodium (Synthroid) 175 mcg PO DAILY@0630 [facility] Last Admin: 02/25/17 05:57 Dose: 175 mcg Ondansetron HCl (Zofran Inj) 4 mg IVP Q6H PRN PRN Reason: Nausea/Vomiting Sodium Phosphate (Fleet Enema) 135 ml [place] Q3 [facility] Stop: 02/25/17 22:01 Last Admin: 02/25/17 11:40 Dose: 135 ml - Labs Labs: 02/25/17 06:53 02/25/17 06:53 PT 12.0 SECONDS (9.7-12.2) 02/25/17 06:53 INR 1.1 02/25/17 06:53 APTT 31 SECONDS (21-34) 02/25/17 06:53 - Constitutional Appears: No Acute Distress - Head Exam Head Exam: ATRAUMATIC, NORMOCEPHALIC - Eye Exam Eye Exam: EOMI - ENT Exam ENT Exam: Mucous Membranes Moist - Respiratory Exam Respiratory Exam: Clear to Ausculation Bilateral, NORMAL BREATHING PATTERN - Cardiovascular Exam Cardiovascular Exam: +S1, +S2 - GI/Abdominal Exam GI & Abdominal Exam: Soft, Tenderness (diffuse), Normal Bowel Sounds - Extremities Exam Extremities Exam: Normal Inspection. absent: Pedal Edema - Neurological Exam Neurological Exam: Alert, Awake - Psychiatric Exam Psychiatric exam: Normal Affect - Skin Skin Exam: Warm Assessment and Plan - Assessment and Plan (Free Text) Assessment: (1) Slow Transit Constipation Assessment and Plan: lactulose ordered x 1 dose Recurrent constipation- Failed outpatient therapy CT abdomen and pelvis- findings of severe constipation with fecal retention in sigmoid colon- Refer to complete report GI Dr. Day consulted- fleet enema, dulcolax suppository BID pt refused go-lytely CLD for now Surgery- Dr. 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
[2017-02-25] MEDS: Sodium Chloride 0.9% 1,000 ML IV SCH ×2 (12:47→19:21)
[2017-02-26] MEDS: Sodium Chloride 0.9% 1,000 ML IV SCH ×4 (03:30→16:46)
[2017-02-26] MEDS: Levothyroxine 175 MCG TAB PO SCH ×2 (05:57→06:00)
--- NOTE | 2017-02-26 06:54 | CP.PCM.PN ---
Subjective - Date & Time of Evaluation Date of Evaluation: 02/26/17 Time of Evaluation: 10:00 - Subjective Subjective: Medicine Note- Hospitalist Service Patient was seen and examined at bedside. Patient reports she still has no had a bowel movement yet. She denies any current abdominal pain. Tolerating PO. No events overnight per nursing. Objective - Vital Signs/Intake and Output Vital Signs (last 24 hours): Temp Pulse Resp BP Pulse Ox 98.4 F 69 20 100/65 97 02/26/17 00:00 02/26/17 00:00 02/26/17 00:00 02/26/17 00:00 02/26/17 00:00 Intake and Output: 02/25/17 02/26/17 18:59 06:59 Intake Total 300 1720 Balance 300 1720 - Medications Medications: Current Medications Bisacodyl (Dulcolax) 10 mg [place] BID [facility] Last Admin: 02/25/17 17:11 Dose: 10 mg Famotidine (Pepcid) 20 mg IVP Q12 [facility] Last Admin: 02/25/17 21:39 Dose: 20 mg Sodium Chloride (Sodium Chloride 0.9%) 1,000 mls @ 100 mls/hr IV .Q10H [facility] Last Admin: 02/26/17 03:30 Dose: 100 mls/hr Ketorolac Tromethamine (Toradol) 15 mg IVP Q6 PRN PRN Reason: Pain, moderate (4-7) Levothyroxine Sodium (Synthroid) 175 mcg PO DAILY@0630 [facility] Last Admin: 02/26/17 06:00 Dose: Not Given Ondansetron HCl (Zofran Inj) 4 mg IVP Q6H PRN PRN Reason: Nausea/Vomiting - Labs Labs: 02/25/17 06:53 02/25/17 06:53 PT 12.0 SECONDS (9.7-12.2) 02/25/17 06:53 INR 1.1 02/25/17 06:53 APTT 31 SECONDS (21-34) 02/25/17 06:53 - Constitutional Appears: Non-toxic, No Acute Distress - Head Exam Head Exam: ATRAUMATIC, NORMAL INSPECTION, NORMOCEPHALIC - Eye Exam Pupil Exam: NORMAL ACCOMODATION, PERRL Assessment and Plan - Assessment and Plan (Free Text) Assessment: (1) Slow Transit Constipation Assessment and Plan: lactulose ordered x 1 dose Recurrent constipation- Failed outpatient therapy CT abdomen and pelvis- findings of severe constipation with fecal retention in sigmoid colon- Refer to complete report GI Dr. Day consulted- fleet enema Q2h, dulcolax suppository BID soap suds enema Q3h pt refused go-lytely CLD for now Surgery- Dr. Nguyen consulted- No surgical intervention at this time NS @ 100cc/h Monitor for BMs Status: Chronic (2) Abdominal pain Assessment and Plan: Recurrent constipation CT abdomen and pelvis- findings of severe constipation with fecal retention in sigmoid colon- Refer to complete report Abdomen X ray- 02/26/17- Severe constipation. Nonobstructive bowel gas pattern Zofran PRN Toradol 15 mg Q6 PRN for pain Status: Acute (3) Abnormal urinalysis Assessment and Plan: Dirty catch Repeat UA and UC- F/U Status: Acute (4) Hypothyroidism Assessment and Plan: Patient instructed to followup outpatient with chain maker hand Levothyroxine 175 mcg daily TSH < 0.02, total T3 1.22, Free T4 2.23 Status: Chronic (5) Prophylactic measure Assessment and Plan: SCDs Pepcid 20 mg IV Q12 Cont to monitor for BMs Status: Acute
[2017-02-26 07:24] LABS: BASO % 0.4 % (0.0-2.0); EOS # 0.3 K/uL (0.0-0.7); EOS % 5.2 % (0.0-4.0); HEMATOCRIT 32.5 % (34.0-47.0); LYMPH # 2.4 K/uL (1.0-4.3); LYMPH % 38.3 % (20.0-40.0); MEAN CELL VOLUME 90.4 fL (81.0-99.0); MEAN CORPUSCULAR HEMOGLOBIN 31.3 pg (27.0-31.0); MEAN CORPUSCULAR HGB CONC 34.6 g/dL (33.0-37.0); MEAN PLATELET VOLUME 8.9 fL (7.2-11.7); MONO # 0.5 K/uL (0.0-0.8); MONO % 8.4 % (0.0-10.0); NRBC % 0.1 % (0.0-2.0); RED CELL DISTRIBUTION WIDTH 12.5 % (11.5-14.5); WHITE BLOOD COUNT 6.4 K/uL (4.8-10.8)
[2017-02-26 07:31] LABS: CHLORIDE 104 mmol/L (98-107); POTASSIUM 2.8 mmol/L (3.6-5.2); SODIUM 137 mmol/L (132-148)
[2017-02-26 07:33] LABS: AST/SGOT 16 U/L (14-36); BILIRUBIN,TOTAL 0.8 mg/dL (0.2-1.3); CARBON DIOXIDE 22 mmol/L (22-30); GFR AFRICAN-AMERICAN > 60
[2017-02-26 07:34] LABS: ALKALINE PHOSPHATASE 41 U/L (38-126); ALT/SGPT 22 U/L (9-52); BLOOD UREA NITROGEN 8 mg/dL (7-17); CALCIUM 7.8 mg/dl (8.6-10.4); GLUCOSE,RANDOM 74 mg/dL (65-105); MAGNESIUM 1.8 mg/dL (1.6-2.3); TOTAL PROTEIN 5.8 g/dL (6.3-8.3)
[2017-02-26 08:03] LABS: ALB/GLOB RATIO 1.1 (1.0-2.1)
[2017-02-26] MEDS: Potassium Chloride 20 mEq ER Tab PO SCH ×2 (09:31→12:25)
--- NOTE | 2017-02-26 09:32 | CP.PCM.PN ---
<Lawson Moore - Last Filed: 02/26/17 09:35> Subjective - Date & Time of Evaluation Date of Evaluation: 02/26/17 Time of Evaluation: 08:55 - Subjective Subjective: PGY4 GI Fellow Progress Note Patient seen and examined bedside this morning. Had two hard stool yesterday with fleet enema administration. Has improvement in pain. Concerned about frequent recurrence of symptoms despite medications at home. Denies any nausea, vomiting today. Nervous to eat. 12 system ROS performed and negative except where stated. Objective - Vital Signs/Intake and Output Vital Signs (last 24 hours): Temp Pulse Resp BP Pulse Ox 98.4 F 69 20 100/65 97 02/26/17 00:00 02/26/17 00:00 02/26/17 00:00 02/26/17 00:00 02/26/17 00:00 Intake and Output: 02/26/17 02/26/17 06:59 18:59 Intake Total 1720 Balance 1720 - Medications Medications: Current Medications Bisacodyl (Dulcolax) 10 mg [place] BID [facility] Last Admin: 02/25/17 17:11 Dose: 10 mg Famotidine (Pepcid) 20 mg IVP Q12 [facility] Last Admin: 02/25/17 21:39 Dose: 20 mg Sodium Chloride (Sodium Chloride 0.9%) 1,000 mls @ 100 mls/hr IV .Q10H [facility] Last Admin: 02/26/17 03:30 Dose: 100 mls/hr Ketorolac Tromethamine (Toradol) 15 mg IVP Q6 PRN PRN Reason: Pain, moderate (4-7) Levothyroxine Sodium (Synthroid) 175 mcg PO DAILY@0630 [facility] Last Admin: 02/26/17 06:00 Dose: Not Given Ondansetron HCl (Zofran Inj) 4 mg IVP Q6H PRN PRN Reason: Nausea/Vomiting Potassium Chloride (K-Dur 20 Meq Er Tab) 40 meq PO Q4H [facility] Stop: 02/26/17 13:01 - Labs Labs: 02/26/17 07:11 02/26/17 07:11 PT 12.0 SECONDS (9.7-12.2) 02/25/17 06:53 INR 1.1 02/25/17 06:53 APTT 31 SECONDS (21-34) 02/25/17 06:53 - Constitutional Appears: Non-toxic, No Acute Distress - Eye Exam Eye Exam: EOMI, PERRL - ENT Exam ENT Exam: Mucous Membranes Moist - Respiratory Exam Respiratory Exam: Clear to Ausculation Bilateral. absent: Rales, Rhonchi, Wheezes - Cardiovascular Exam Cardiovascular Exam: RRR, +S1, +S2 - GI/Abdominal Exam GI & Abdominal Exam: Soft, Tenderness (LLQ), Normal Bowel Sounds. absent: Distended, Firm, Guarding, Rigid, Organomegaly - Extremities Exam Extremities Exam: Normal Inspection. absent: Pedal Edema - Neurological Exam Neurological Exam: Alert, Awake, Oriented x3 - Psychiatric Exam Psychiatric exam: Normal Affect, Normal Mood - Skin Skin Exam: Dry, Warm Assessment and Plan - Assessment and Plan (Free Text) Assessment: Patient is a 32yo female with PMHx significant for hypothyroidism and slow transit constipation who presents with abdominal pain and constipation. -Acute exacerbation of ongoing slow transit constipation -Hypothyroidism -Dysphagia with recent unremarkable EGD Plan: -Check abdominal flat plate today -Continue with bowel regimen; Dulcolax supp BID and frequent fleet enema -If symptoms improved; can consider D/C later today from GI standpoint -Diet as tolerated, encouraged to eat -Offered GoLytely bowel cleanse but patient still refusing at this time -Recommend Endocrinology evaluation for hypothyroidism -Consider thyroid/neck imaging if dysphagia persists; no significant findings on EGD -No plan for endoscopic intervention <Sukhjinder Brand - Last Filed: 02/26/17 09:44> Objective - Vital Signs/Intake and Output Vital Signs (last 24 hours): Temp Pulse Resp BP Pulse Ox 98.7 F 66 20 99/62 L 99 02/26/17 08:00 02/26/17 08:00 02/26/17 08:00 02/26/17 08:00 02/26/17 08:00 Intake and Output: 02/26/17 02/26/17 06:59 18:59 Intake Total 1720 Balance 1720 - Medications Medications: Current Medications Bisacodyl (Dulcolax) 10 mg NE BID [facility] Last Admin: 02/26/17 09:31 Dose: 10 mg Famotidine (Pepcid) 20 mg IVP Q12 [facility] Last Admin: 02/26/17 09:40 Dose: 20 mg Sodium Chloride (Sodium Chloride 0.9%) 1,000 mls @ 100 mls/hr IV .Q10H [facility] Last Admin: 02/26/17 03:30 Dose: 100 mls/hr Ketorolac Tromethamine (Toradol) 15 mg IVP Q6 PRN PRN Reason: Pain, moderate (4-7) Levothyroxine Sodium (Synthroid) 175 mcg PO DAILY@0630 [facility] Last Admin: 02/26/17 06:00 Dose: Not Given Ondansetron HCl (Zofran Inj) 4 mg IVP Q6H PRN PRN Reason: Nausea/Vomiting Potassium Chloride (K-Dur 20 Meq Er Tab) 40 meq PO Q4H [facility] Stop: 02/26/17 13:01 Last Admin: 02/26/17 09:31 Dose: 40 meq - Labs Labs: 02/26/17 07:11 02/26/17 07:11 PT 12.0 SECONDS (9.7-12.2) 02/25/17 06:53 INR 1.1 02/25/17 06:53 APTT 31 SECONDS (21-34) 02/25/17 06:53 Attending/Attestation - Attestation I have personally seen and examined this patient.: Yes I have fully participated in the care of the patient.: Yes I have reviewed all pertinent clinical information, including history, physical exam and plan: Yes Notes (Text): 02/26/17 09:43 32 year old female admitted with abdominal pain and severe constipation. 1. Slow transit constipation 2. Abdominal pain Plan: -patient has failed numerous outpatient constipation therapies including amitiza /linzess -she is admitted with abdominal pain and severe constipation -continue aggresive lower GI bowel regimen with enemas/suppositories -liquid diet -check abdominal x ray to assess progress -no role for endoscopic intervention -depending on clinical course, may be able to go home today or tomorrow
--- NOTE | 2017-02-26 09:53 | CP.PCM.PN ---
Subjective - Date & Time of Evaluation Date of Evaluation: 02/26/17 Time of Evaluation: 09:51 - Subjective Subjective: Surgery: Dr. Nguyen Pt seen and examined. Resting comfortably in bed. Pt had 2 BMs, normal to hard in consistency. Pain improved. Tolerating liquid diet. Does not want to eat more. Objective - Vital Signs/Intake and Output Vital Signs (last 24 hours): Temp Pulse Resp BP Pulse Ox 98.7 F 66 20 99/62 L 99 02/26/17 08:00 02/26/17 08:00 02/26/17 08:00 02/26/17 08:00 02/26/17 08:00 Intake and Output: 02/26/17 02/26/17 06:59 18:59 Intake Total 1720 Balance 1720 - Medications Medications: Current Medications Al Hydrox/Mg Hydrox/Simethicone (Maalox Plus 30 Ml) 30 ml PO HS [facility] Bisacodyl (Dulcolax) 10 mg [place] BID [facility] Last Admin: 02/26/17 09:31 Dose: 10 mg Famotidine (Pepcid) 20 mg IVP Q12 [facility] Last Admin: 02/26/17 09:40 Dose: 20 mg Sodium Chloride (Sodium Chloride 0.9%) 1,000 mls @ 100 mls/hr IV .Q10H [facility] Last Admin: 02/26/17 03:30 Dose: 100 mls/hr Ketorolac Tromethamine (Toradol) 15 mg IVP Q6 PRN PRN Reason: Pain, moderate (4-7) Levothyroxine Sodium (Synthroid) 175 mcg PO DAILY@0630 [facility] Last Admin: 02/26/17 06:00 Dose: Not Given Ondansetron HCl (Zofran Inj) 4 mg IVP Q6H PRN PRN Reason: Nausea/Vomiting Potassium Chloride (K-Dur 20 Meq Er Tab) 40 meq PO Q4H [facility] Stop: 02/26/17 13:01 Last Admin: 02/26/17 09:31 Dose: 40 meq - Labs Labs: 02/26/17 07:11 02/26/17 07:11 PT 12.0 SECONDS (9.7-12.2) 02/25/17 06:53 INR 1.1 02/25/17 06:53 APTT 31 SECONDS (21-34) 02/25/17 06:53 - Constitutional Appears: Non-toxic, No Acute Distress - Head Exam Head Exam: ATRAUMATIC, NORMOCEPHALIC - Eye Exam Eye Exam: EOMI. absent: Scleral icterus - ENT Exam ENT Exam: Mucous Membranes Moist - Neck Exam Neck Exam: Full ROM - Respiratory Exam Respiratory Exam: NORMAL BREATHING PATTERN. absent: Accessory Muscle Use, Respiratory Distress - GI/Abdominal Exam GI & Abdominal Exam: Soft, Tenderness (mild suprapubic). absent: Distended, Firm, Guarding, Rigid, Rebound - Extremities Exam Extremities Exam: absent: Calf Tenderness, Pedal Edema - Neurological Exam Neurological Exam: Alert, Awake, Oriented x3 - Psychiatric Exam Psychiatric exam: Normal Affect, Normal Mood Assessment and Plan - Assessment and Plan (Free Text) Assessment: 32F w. chronic constipation -continue w. suppositories and enemas -f/u AXR -potassium being repleted by medicine -no plans for surgical intervention -will continue to follow -d/w attending Zemaitis PGY2
--- NOTE | 2017-02-26 11:47 | RAD ---
HISTORY: constipation COMPARISON: No prior. FINDINGS: BOWEL: There is large amount of stool in the colon and rectum. The bowel gas pattern is nonobstructive. BONES: Normal. OTHER FINDINGS: None. IMPRESSION: Severe constipation. Nonobstructive bowel gas pattern.
[2017-02-26 20:00] LABS: CHLORIDE 107 mmol/L (98-107); POTASSIUM 3.4 mmol/L (3.6-5.2); SODIUM 138 mmol/L (132-148)
[2017-02-26 20:03] LABS: BLOOD UREA NITROGEN 6 mg/dL (7-17); CARBON DIOXIDE 22 mmol/L (22-30); GFR AFRICAN-AMERICAN > 60
[2017-02-26 20:04] LABS: CALCIUM 7.9 mg/dl (8.6-10.4); GLUCOSE,RANDOM 119 mg/dL (65-105)
[2017-02-26] MEDS ORDERED: Potassium Chloride 20 mEq ER Tab PO STA (20:23)
[2017-02-26] MEDS ORDERED: Magnesium Sulfate 1 gm in D5W 1 GM/100 ML BAG IVPB SCH (20:30)
[2017-02-26] MEDS: Alum-Mag Hydrox-Simethicone Susp (30 mL) PO SCH ×2 (22:04→22:11)
[2017-02-27 06:12] LABS: BASO # 0.1 K/uL (0.0-0.2); EOS # 0.4 K/uL (0.0-0.7); EOS % 7.7 % (0.0-4.0); LYMPH # 2.1 K/uL (1.0-4.3); LYMPH % 39.9 % (20.0-40.0); MEAN CELL VOLUME 90.8 fL (81.0-99.0); MEAN CORPUSCULAR HEMOGLOBIN 30.8 pg (27.0-31.0); MEAN CORPUSCULAR HGB CONC 33.9 g/dL (33.0-37.0); MONO # 0.6 K/uL (0.0-0.8); MONO % 10.8 % (0.0-10.0); RED CELL DISTRIBUTION WIDTH 12.7 % (11.5-14.5); WHITE BLOOD COUNT 5.3 K/uL (4.8-10.8)
[2017-02-27] MEDS: Levothyroxine 175 MCG TAB PO SCH (06:17)
[2017-02-27] MEDS: Sodium Chloride 0.9% 1,000 ML IV SCH ×3 (06:18→17:11)
[2017-02-27 06:54] LABS: CHLORIDE 106 mmol/L (98-107)
[2017-02-27 06:55] LABS: POTASSIUM 3.4 mmol/L (3.6-5.2); SODIUM 136 mmol/L (132-148)
[2017-02-27 06:57] LABS: ALB/GLOB RATIO 0.9 (1.0-2.1); ALKALINE PHOSPHATASE 39 U/L (38-126); ALT/SGPT 21 U/L (9-52); AST/SGOT 17 U/L (14-36); BILIRUBIN,TOTAL 0.4 mg/dL (0.2-1.3); BLOOD UREA NITROGEN 3 mg/dL (7-17); CARBON DIOXIDE 22 mmol/L (22-30); GFR AFRICAN-AMERICAN > 60; TOTAL PROTEIN 5.7 g/dL (6.3-8.3)
[2017-02-27 06:58] LABS: CALCIUM 7.8 mg/dl (8.6-10.4); GLUCOSE,RANDOM 83 mg/dL (65-105)
--- NOTE | 2017-02-27 07:21 | CP.PCM.PN ---
Subjective - Date & Time of Evaluation Date of Evaluation: 02/27/17 Time of Evaluation: 07:19 - Subjective Subjective: Gen Sx: Dr Nguyen Pt S&E. KAMRAN. HAd 2 hard bowel movements yesterday. Tolerating CLD but minimally. Very worried about discharge and remaining stool within colon. Still states she has a lot of pain. Objective - Vital Signs/Intake and Output Vital Signs (last 24 hours): Temp Pulse Resp BP Pulse Ox 98.3 F 62 20 100/64 98 02/27/17 00:00 02/27/17 00:00 02/27/17 00:00 02/27/17 00:00 02/27/17 00:00 Intake and Output: 02/27/17 02/27/17 06:59 18:59 Intake Total 2009 Balance 2009 - Medications Medications: Current Medications Al Hydrox/Mg Hydrox/Simethicone (Maalox Plus 30 Ml) 30 ml PO HS [facility] Last Admin: 02/26/17 22:11 Dose: Not Given Bisacodyl (Dulcolax) 10 mg [place] BID [facility] Last Admin: 02/26/17 17:52 Dose: 10 mg Famotidine (Pepcid) 20 mg IVP Q12 [facility] Last Admin: 02/26/17 22:04 Dose: 20 mg Sodium Chloride (Sodium Chloride 0.9%) 1,000 mls @ 100 mls/hr IV .Q10H [facility] Last Admin: 02/27/17 06:18 Dose: 100 mls/hr Ketorolac Tromethamine (Toradol) 15 mg IVP Q6 PRN PRN Reason: Pain, moderate (4-7) Levothyroxine Sodium (Synthroid) 175 mcg PO DAILY@0630 [facility] Last Admin: 02/27/17 06:17 Dose: 175 mcg Ondansetron HCl (Zofran Inj) 4 mg IVP Q6H PRN PRN Reason: Nausea/Vomiting - Labs Labs: 02/27/17 06:04 02/27/17 06:04 PT 12.0 SECONDS (9.7-12.2) 02/25/17 06:53 INR 1.1 02/25/17 06:53 APTT 31 SECONDS (21-34) 02/25/17 06:53 - Constitutional Appears: Non-toxic, No Acute Distress - Respiratory Exam Respiratory Exam: absent: Accessory Muscle Use, Respiratory Distress - Cardiovascular Exam Cardiovascular Exam: REGULAR RHYTHM - GI/Abdominal Exam GI & Abdominal Exam: Guarding, Soft, Tenderness (LLQ). absent: Distended, Mass - Neurological Exam Neurological Exam: Alert, Awake, Oriented x3 - Psychiatric Exam Psychiatric exam: Normal Affect, Normal Mood - Skin Skin Exam: Normal Color, Warm Assessment and Plan - Assessment and Plan (Free Text) Assessment: 32F w. chronic constipation -continue w. suppositories and enemas per GI -no plans for surgical intervention, would recommend more BM before D/C -will continue to follow will d/w Dr Patrick Khan, PGY2
--- NOTE | 2017-02-27 08:38 | CP.PCM.PN ---
<ReynoldannabelleLawson - Last Filed: 02/27/17 08:38> Subjective - Date & Time of Evaluation Date of Evaluation: 02/27/17 Time of Evaluation: 08:36 - Subjective Subjective: PGY4 GI Fellow Progress Note Patient seen and examined bedside this morning. The patient states that she continues to have abdominal pain and only passed multiple liquid stool yesterday. She remains nauseated and was unable to take her Synthroid yesterday. Had nausea/vomiting last night. Hungry but fearful to eat. 12 system ROS performed and negative except where stated. Objective - Vital Signs/Intake and Output Vital Signs (last 24 hours): Temp Pulse Resp BP Pulse Ox 97.9 F 66 20 99/76 L 98 02/27/17 07:49 02/27/17 07:49 02/27/17 07:49 02/27/17 07:49 02/27/17 07:49 Intake and Output: 02/27/17 02/27/17 06:59 18:59 Intake Total 2009 Balance 2009 - Medications Medications: Current Medications Al Hydrox/Mg Hydrox/Simethicone (Maalox Plus 30 Ml) 30 ml PO HS [facility] Last Admin: 02/26/17 22:11 Dose: Not Given Bisacodyl (Dulcolax) 10 mg [place] BID [facility] Last Admin: 02/26/17 17:52 Dose: 10 mg Famotidine (Pepcid) 20 mg IVP Q12 [facility] Last Admin: 02/26/17 22:04 Dose: 20 mg Sodium Chloride (Sodium Chloride 0.9%) 1,000 mls @ 100 mls/hr IV .Q10H [facility] Last Admin: 02/27/17 06:18 Dose: 100 mls/hr Ketorolac Tromethamine (Toradol) 15 mg IVP Q6 PRN PRN Reason: Pain, moderate (4-7) Levothyroxine Sodium (Synthroid) 175 mcg PO DAILY@0630 [facility] Last Admin: 02/27/17 06:17 Dose: 175 mcg Ondansetron HCl (Zofran Inj) 4 mg IVP Q6H PRN PRN Reason: Nausea/Vomiting - Labs Labs: 02/27/17 06:04 02/27/17 06:04 PT 12.0 SECONDS (9.7-12.2) 02/25/17 06:53 INR 1.1 02/25/17 06:53 APTT 31 SECONDS (21-34) 02/25/17 06:53 - Constitutional Appears: Non-toxic, No Acute Distress - Eye Exam Eye Exam: EOMI, PERRL - ENT Exam ENT Exam: Mucous Membranes Moist - Respiratory Exam Respiratory Exam: Clear to Ausculation Bilateral. absent: Rales, Rhonchi, Wheezes - Cardiovascular Exam Cardiovascular Exam: RRR, +S1, +S2 - GI/Abdominal Exam GI & Abdominal Exam: Soft, Tenderness (spurapubic), Hypoactive Bowel Sounds. absent: Distended, Firm, Guarding, Rigid, Organomegaly - Extremities Exam Extremities Exam: Normal Inspection. absent: Pedal Edema - Neurological Exam Neurological Exam: Alert, Awake, Oriented x3 - Psychiatric Exam Psychiatric exam: Normal Affect, Normal Mood - Skin Skin Exam: Dry, Warm Assessment and Plan - Assessment and Plan (Free Text) Assessment: Patient is a 32yo female with PMHx significant for hypothyroidism and slow transit constipation who presents with abdominal pain and constipation. -Slow transit constipation -Hypothyroidism -Dysphagia with recent unremarkable EGD Plan: -Abdominal flat plate reviewed; stool throughout colon -Continue with Dulcolax supp BID and frequent enemas -Add lactulose, mineral oil enema -Pt refusing GoLytely, refused enemas for most of yesterday -Diet as tolerated, encouraged to eat -Antiemetics per primary service -Continue to suggest Endocrinology evaluation for hypothyroidism -Consider thyroid/neck imaging if dysphagia persists; no significant findings on EGD -No plan for endoscopic intervention <Sharon Hoff MD - Last Filed: 02/27/17 11:03> Objective - Vital Signs/Intake and Output Vital Signs (last 24 hours): Temp Pulse Resp BP Pulse Ox 97.9 F 66 20 99/76 L 98 02/27/17 07:49 02/27/17 07:49 02/27/17 07:49 02/27/17 07:49 02/27/17 07:49 Intake and Output: 02/27/17 02/27/17 06:59 18:59 Intake Total 2009 Balance 2009 - Medications Medications: Current Medications Al Hydrox/Mg Hydrox/Simethicone (Maalox Plus 30 Ml) 30 ml PO HS [facility] Last Admin: 02/26/17 22:11 Dose: Not Given Bisacodyl (Dulcolax) 10 mg [place] BID [facility] Last Admin: 02/26/17 17:52 Dose: 10 mg Famotidine (Pepcid) 20 mg IVP Q12 [facility] Last Admin: 02/26/17 22:04 Dose: 20 mg Sodium Chloride (Sodium Chloride 0.9%) 1,000 mls @ 100 mls/hr IV .Q10H [facility] Last Admin: 02/27/17 06:18 Dose: 100 mls/hr Ketorolac Tromethamine (Toradol) 15 mg IVP Q6 PRN PRN Reason: Pain, moderate (4-7) Levothyroxine Sodium (Synthroid) 175 mcg PO DAILY@0630 [facility] Last Admin: 02/27/17 06:17 Dose: 175 mcg Ondansetron HCl (Zofran Inj) 4 mg IVP Q6H PRN PRN Reason: Nausea/Vomiting - Labs Labs: 02/27/17 06:04 02/27/17 06:04 PT 12.0 SECONDS (9.7-12.2) 02/25/17 06:53 INR 1.1 02/25/17 06:53 APTT 31 SECONDS (21-34) 02/25/17 06:53 Attending/Attestation - Attestation I have personally seen and examined this patient.: Yes I have fully participated in the care of the patient.: Yes I have reviewed all pertinent clinical information, including history, physical exam and plan: Yes Notes (Text): 02/27/17 11:01 Patient seen with Gi fellow on rounds. This is a 32 year old female admitted with abdominal pain and severe constipation and hypothyroid. Repeat AXR with stool all throughout. Liquid diet as tolerated. Needs endocrine consult for uncontrolled hypothyroidism. Continue aggressive bowel regimen.
[2017-02-27] MEDS ORDERED: Mineral Oil Enema 135 ml RC ONE (08:44)
[2017-02-27 15:10] LABS: URINE BILIRUBIN NEGATIVE (NEGATIVE); URINE BLOOD NEGATIVE (NEGATIVE); URINE COLOR Yellow (YELLOW); URINE GLUCOSE (UA) NORMAL (Normal); URINE KETONE 2+ mg/dL (NEGATIVE); URINE LEUKOCYTE ESTERASE NEG Leu/uL (Negative); URINE PROTEIN NEGATIVE (NEGATIVE); URINE UROBILINOGEN NORMAL mg/dL (0.2-1.0); WBC URINE 1 /hpf (0-5)
--- NOTE | 2017-02-27 18:10 | CP.PCM.PN ---
Subjective - Date & Time of Evaluation Date of Evaluation: 02/27/17 Time of Evaluation: 10:15 - Subjective Subjective: Medicine-Note: Dr. Bustillo's service Patient was seen and examined at bedside. Patient continues to experience abdominal discomfort and passed liquid stool after receiving enema. Patient remains nauseated and vomited. Patient is unable tolerate anything orally and was unable to take her dose of lactulose today. Patient also requested that her enema be more frequently spaced out due to pain. Objective - Vital Signs/Intake and Output Vital Signs (last 24 hours): Temp Pulse Resp BP Pulse Ox 98.2 F 58 L 20 126/75 98 02/27/17 15:00 02/27/17 15:00 02/27/17 15:00 02/27/17 15:00 02/27/17 15:00 Intake and Output: 02/27/17 02/27/17 06:59 18:59 Intake Total 2009 760 Balance 2009 760 - Medications Medications: Current Medications Al Hydrox/Mg Hydrox/Simethicone (Maalox Plus 30 Ml) 30 ml PO HS [facility] Last Admin: 02/26/17 22:11 Dose: Not Given Bisacodyl (Dulcolax) 10 mg [place] BID [facility] Last Admin: 02/27/17 17:39 Dose: 10 mg Famotidine (Pepcid) 20 mg IVP Q12 [facility] Last Admin: 02/27/17 10:52 Dose: 20 mg Sodium Chloride (Sodium Chloride 0.9%) 1,000 mls @ 100 mls/hr IV .Q10H [facility] Last Admin: 02/27/17 11:05 Dose: Not Given Ketorolac Tromethamine (Toradol) 15 mg IVP Q6 PRN PRN Reason: Pain, moderate (4-7) Ondansetron HCl (Zofran Inj) 4 mg IVP Q6H PRN PRN Reason: Nausea/Vomiting - Labs Labs: 02/27/17 06:04 02/27/17 06:04 PT 12.0 SECONDS (9.7-12.2) 02/25/17 06:53 INR 1.1 02/25/17 06:53 APTT 31 SECONDS (21-34) 02/25/17 06:53 - Head Exam Head Exam: NORMOCEPHALIC - Eye Exam Eye Exam: EOMI, Normal appearance - ENT Exam ENT Exam: Mucous Membranes Moist - Respiratory Exam Respiratory Exam: Clear to Ausculation Bilateral, NORMAL BREATHING PATTERN - Cardiovascular Exam Cardiovascular Exam: REGULAR RHYTHM, +S1, +S2 - GI/Abdominal Exam GI & Abdominal Exam: Tenderness (Constipation ), Normal Bowel Sounds - Extremities Exam Extremities Exam: Normal Inspection (No edema ) - Neurological Exam Neurological Exam: Alert, Altered, Awake, Oriented x3 - Psychiatric Exam Psychiatric exam: Normal Affect, Normal Mood - Skin Skin Exam: Dry, Normal Color, Warm Assessment and Plan - Assessment and Plan (Free Text) Assessment: 1) Slow Transit Constipation Assessment and Plan: Recurrent constipation- Failed outpatient therapy lactulose ordered x 1 dose - Patient refused lactulose dose (02/27/17 due to being nauseated) CT abdomen and pelvis- findings of severe constipation with fecal retention in sigmoid colon- Refer to complete report GI Dr. Day consulted- fleet enema once today Tap and soap enema TID dulcolax 10mg suppository BID pt refused go-lytely CLD for now Surgery- Dr. Nguyen consulted- No surgical intervention at this time NS @ 100cc/h Monitor for BMs Endocrine Dr. Atkinson Consulted- As per conversation with Dr. Atkinson: Patient's chronic constipation is unlikely due to an endocrine etiology, since patient is still constipated at hyperthyroid state at this time Discontinue 175mcg synthroid today ( 02/27/17) for one week and start 100mcg synthroid a week from today (03/06/17). Status: Chronic (2) Abdominal pain Assessment and Plan: Recurrent constipation CT abdomen and pelvis- findings of severe constipation with fecal retention in sigmoid colon- Refer to complete report Abdomen X ray- 02/26/17- Severe constipation. Nonobstructive bowel gas pattern Ordered additional abdomen X-ray today (02/27/17) to monitor progress Zofran PRN Toradol 15 mg Q6 PRN for pain Status: Acute (3) Abnormal urinalysis Assessment and Plan: Dirty catch Repeat UA and UC- F/U Status: Acute (4) Hypothyroidism Assessment and Plan: Endocrine Dr. Atkinson Consulted- As per conversation with Dr. Atkinson, discontinue 175mcg synthroid today ( 02/27/17) for one week and start 100mcg synthroid a week from today (03/06/17). 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 outpatient with internal audit manager Pending Cortisol, Free T4, Prolactin, T4, TSH, Thyroglobulin AB, Thyroid Peroxidase AB - Ordered by TSH < 0.02, total T3 1.22, Free T4 2.23 Status: Chronic (5) Prophylactic measure Assessment and Plan: SCDs Pepcid 20 mg IV Q12 Cont to monitor for BMs Status: Acute
--- NOTE | 2017-02-27 19:09 | CON ---
DATE: 02/27/2017 LOCATION: Room 352, 3 tower. HISTORY OF PRESENT ILLNESS: This is a 32-year-old female with known history of hypothyroidism and ad mitted here with severe constipation and supervening diffuse abdominal pain and is now undergoing GI workup and surgical evaluation and is also being referred now for endocrine evaluation and management . PAST MEDICAL HISTORY: History of hypothyroidism and has been on varying doses of her levothyroxine r eplacement therapy. She is currently on levothyroxine given at 175 mcg daily. As mentioned above, h istory of chronic recurrent constipation and has tried multiple olqq-xnu-nlwyrvn laxatives and stool softeners and even Fleet enemas to no avail. She is currently on Linzess medication at this time. FAMILY HISTORY: Positive for hypertension, heart disease and type 2 diabetes. SOCIAL HISTORY: The patient has a supportive family. No known substance use. Admits to social use of alcohol. REVIEW OF SYSTEMS: As mentioned above. Admits to frequent bifrontal headaches with episodic bouts o f dizziness and lightheadedness. Also, admits to easy fatigability and tiredness with suboptimal ashlie rgy level. No chest pains or palpitations or PNDs. Her oral intake is variable and suboptimal with nausea, dyspepsia, and supervening diffuse abdominal pain, worse in the lower pelvic area with severe constipation as mentioned. No recent alterations of urinary patterns otherwise. PHYSICAL EXAMINATION: GENERAL: This is an average built female in no apparent distress. VITAL SIGNS: Blood pressure of 130/80, pulse of 90 beats per minute and regular, temperature 98, res pirations 20. Height is 5 feet 1 inches, weight is 125 pounds. HEENT: Head normocephalic. Eyes anicteric with pink conjunctivae. Fundoscopy not possible at this time. Ears, nose and throat otherwise normal. NECK: Supple. Thyroid gland is normal size. No carotid bruits. No cervical adenopathy. CARDIOPULMONARY: Has an adynamic precordium. S1, S2 is rapid and regular. LUNGS: Clear to auscultation. ABDOMEN: Flat, soft with no evidence of any rebound tenderness. Bowel sounds are present. EXTREMITIES: No peripheral edema. Pulses are +2 bilaterally. LABORATORY DATA: Her chemistries showed a BUN of 3, sodium 136, potassium 3.4, chloride 106, CO2 of 22, glucose 83 and creatinine 0.5. Her thyroid studies showed a TSH of less than 0.02 with a free T4 of 2.23 and a total T3 of 1.22. ASSESSMENT: This is a 32-year-old female with severe constipation and associated constitutional and hyperadrenergic manifestations and the etiology has yet to be determined, but at this point, this is clearly not related to the present thyroid condition as she is actually biochemically hyperthyroxinem ic from levothyroxine over-replacement. The elevated free T4 and suppressed TSH confirms the aforeme ntioned and the low T3 is only related to the so-called acute sick euthyroid syndrome superimposed on present medical condition. If she indeed has autoimmune thyroiditis with overt hypothyroidism at th is time, then this would explain the severe constipation, but at this time she is no longer hypothyro id and in fact has swung over to extreme hyperthyroidism, which is clearly medication induced or medi cation related from over-replacement therapy. PLAN OF MANAGEMENT: For her current weight, her levothyroxine dosing is clearly an over-replacement and would actually require, based on her current weight, only a dose of between 75-100 mcg/dL. Would certainly lower the dose to at least 100 mcg once daily to be started only after a week on the outpa tient as it takes 5-7 days for a full therapeutic washout of the levothyroxine medication as given. We will obtain serial chemistries and supplement accordingly as needed and will also repeat the thyro id function studies after 4-6 weeks as it takes exactly 4-6 weeks for a dose equilibration to the mod ified dosing as recommended. Will repeat the thyroid studies tomorrow just for full confirmation and also add thyroid antibodies, which will confirm and/or negate the presence of underlying thyroid aut oimmunity. Will also obtain a prolactin and serum cortisol level. Dionne Atkinson MD cc: [id number] TT: 02/27/2017 19:08:24 Confirmation # [id number] Dictation # [id number] mesha
[2017-02-27] MEDS: Alum-Mag Hydrox-Simethicone Susp (30 mL) PO SCH (21:25)
--- NOTE | 2017-02-28 06:09 | CP.PCM.PN ---
<AftabGloria V - Last Filed: 02/28/17 19:24> Objective - Vital Signs/Intake and Output Vital Signs (last 24 hours): Temp Pulse Resp BP Pulse Ox 98.2 F 64 20 101/65 100 02/28/17 15:00 02/28/17 15:00 02/28/17 15:00 02/28/17 15:00 02/28/17 15:00 Intake and Output: 02/28/17 03/01/17 18:59 06:59 Intake Total 1150 Balance 1150 - Medications Medications: Current Medications Al Hydrox/Mg Hydrox/Simethicone (Maalox Plus 30 Ml) 30 ml PO HS [facility] Last Admin: 02/27/17 21:25 Dose: 30 ml Bisacodyl (Dulcolax) 10 mg MO BID [facility] Last Admin: 02/28/17 17:08 Dose: 10 mg Famotidine (Pepcid) 20 mg IVP Q12 [facility] Last Admin: 02/28/17 10:16 Dose: 20 mg Sodium Chloride (Sodium Chloride 0.9%) 1,000 mls @ 100 mls/hr IV .Q10H [facility] Last Admin: 02/28/17 17:12 Dose: 100 mls/hr Ketorolac Tromethamine (Toradol) 15 mg IVP Q6 PRN PRN Reason: Pain, moderate (4-7) Metoclopramide HCl (Reglan) 10 mg IVP Q6H PRN PRN Reason: Nausea/Vomiting Ondansetron HCl (Zofran Inj) 4 mg IVP Q6H PRN PRN Reason: Nausea/Vomiting - Labs Labs: 02/28/17 06:21 02/28/17 06:21 PT 12.0 SECONDS (9.7-12.2) 02/25/17 06:53 INR 1.1 02/25/17 06:53 APTT 31 SECONDS (21-34) 02/25/17 06:53 Attending/Attestation - Attestation I have personally seen and examined this patient.: Yes I have fully participated in the care of the patient.: Yes I have reviewed all pertinent clinical information, including history, physical exam and plan: Yes Notes (Text): Patient seen, examined, and case discussed with day-time resident. Patient seen at bedside during afternoon rounds. Patient reports she had small hard stool following enema. Patient refuses golyteley. Resident spoke with patient again, patient last admission reports she had received golyteley twice and report upset stomach and bad taste associated and that is her reasoning for her initial refusal. Patient will permit the use of Golelytyl given that the last resort is surgery. Will follow-up for bowel movement. Electrolytes repleted during rounds today. Note: Patient was last admitted in 2016 for chronic constipation at [facility] and prior hospitalization [place] [facility] and prior ED visit noting that constipation of this duration is chronic, not an isolated acute event. Patient started on Reglan PRN and encouraged for try bowel preparation. Will monitor for a bowel movement Assessment/Plan 1) Slow Transit Constipation Assessment and Plan: CT abdomen and pelvis- findings of severe constipation with fecal retention in sigmoid colon- Refer to complete report GI Dr. Day consult-->help appreciated * Recommend for with aggressive bowel regimen including dulcolax, miralax and stool softner therapy daily. Would also encourage use of 1/2 gallon golytely for immediate symptomatic relief, though patient has refused medication in past. Would also repeat mineral oil enema today. * Patient has had outpatient positive sitz marker study indicating slow transit constipation which has been medically refractory. In this situation, my recommendation is for strong consideration of colectomy to prevent ongoing recurrent constipation, patient has had numerous hospitalizations for similar complaints. Follow up surgical recommendations. * GI has signed off General Surgery- Dr. Nguyen consulted-help appreciated * Per last note, last resort is colectomy * Per surgery note, consider gastrograffine enema to evaluate degree of stool impaction and possible diuretic Endocrine Dr. Atkinson Consulted-help appreciated * Patient's chronic constipation is unlikely due to an endocrine etiology, since patient is still constipated at hyperthyroid state at this time * Recommend to discontinue 175mcg synthroid today ( 02/27/17) for one week and start 100mcg synthroid a week from today (03/06/17). Status: Chronic (2) Abdominal pain Assessment and Plan: Recurrent constipation CT abdomen and pelvis- findings of severe constipation with fecal retention in sigmoid colon- Refer to complete report Abdomen X ray- 02/26/17- Severe constipation. Nonobstructive bowel gas pattern Abdominal xray- 02/28/17--No gross bowel obstruction Status: Acute (3) Abnormal urinalysis Assessment and Plan: Asymptomatic Bacteruia Pending urine culture repeat UA: +2 ketones Status: Acute (4) Hypothyroidism Assessment and Plan: Endocrine Dr. Atkinson Consulted- * As per conversation with Dr. Atkinson, discontinue 175mcg synthroid today ( 02/27/17 ) for one week and start 100mcg synthroid a week from today (03/06/17); which is reflect in her current progress note. 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 Patient continues to experience abdominal discomfort as a result of her recurrent chronic constipation. Patient is not tolerating solid or liquid very well due to being nauseated. During morning rounds, patient refused her order of go-lytely due to her symptoms of nausea. Patient was then informed by attending the significance and possible alleviation of her symptoms with the help of go-lytely. Upon completion of morning rounds, patient asked to speak with Dr. Hameed and subsequently agreed to the administration of go-lytely in addition with meds for nausea and gastric burn. Patient had no acute event overnight. Patient reports nausea, vomiting, diffuse lower abdominal discomfort and minimal watery bowel movement but denies fever, chills, chest pain dyspnea. Objective - Vital Signs/Intake and Output Vital Signs (last 24 hours): Temp Pulse Resp BP Pulse Ox 98.6 F 60 20 96/60 L 96 02/28/17 00:00 02/28/17 00:00 02/28/17 00:00 02/28/17 00:00 02/28/17 00:00 Intake and Output: 02/27/17 02/28/17 18:59 06:59 Intake Total 760 Balance 760 - Medications Medications: Current Medications Al Hydrox/Mg Hydrox/Simethicone (Maalox Plus 30 Ml) 30 ml PO HS [facility] Last Admin: 02/27/17 21:25 Dose: 30 ml Bisacodyl (Dulcolax) 10 mg MO BID [facility] Last Admin: 02/27/17 17:39 Dose: 10 mg Famotidine (Pepcid) 20 mg IVP Q12 [facility] Last Admin: 02/27/17 21:25 Dose: 20 mg Sodium Chloride (Sodium Chloride 0.9%) 1,000 mls @ 100 mls/hr IV .Q10H [facility] Last Admin: 02/27/17 11:05 Dose: Not Given Ketorolac Tromethamine (Toradol) 15 mg IVP Q6 PRN PRN Reason: Pain, moderate (4-7) Ondansetron HCl (Zofran Inj) 4 mg IVP Q6H PRN PRN Reason: Nausea/Vomiting - Labs Labs: 02/27/17 06:04 02/27/17 06:04 PT 12.0 SECONDS (9.7-12.2) 02/25/17 06:53 INR 1.1 02/25/17 06:53 APTT 31 SECONDS (21-34) 02/25/17 06:53 - Constitutional Appears: Non-toxic (Mild discomfort ) - Head Exam Head Exam: NORMAL INSPECTION, NORMOCEPHALIC - Eye Exam Eye Exam: EOMI, Normal appearance - ENT Exam ENT Exam: Mucous Membranes Moist - Respiratory Exam Respiratory Exam: Clear to Ausculation Bilateral, NORMAL BREATHING PATTERN - Cardiovascular Exam Cardiovascular Exam: REGULAR RHYTHM, +S1, +S2 - GI/Abdominal Exam GI & Abdominal Exam: Soft (Non-distended, tender ), Normal Bowel Sounds - Extremities Exam Extremities Exam: Normal Capillary Refill, Normal Inspection - Neurological Exam Neurological Exam: Alert, Altered, Awake, Oriented x3 - Psychiatric Exam Psychiatric exam: Normal Affect, Normal Mood - Skin Skin Exam: Dry, Normal Color, Warm Assessment and Plan - Assessment and Plan (Free Text) Assessment: Assessment and Plan: 1. Slow Transit Constipation Recurrent constipation- Failed outpatient therapy Patient agreed to go-lytely after refusal during morning rounds (02/28/19 lactulose ordered x 1 dose - Patient refused lactulose dose (02/27/17 due to being nauseated) CT abdomen and pelvis- findings of severe constipation with fecal retention in sigmoid colon- Refer to complete report As per GI (Dr. Cummings -02/28/17): Continue with aggressive bowel regimen including dulcolax, miralax and stool softner therapy daily Surgery- Dr. Nguyen consulted- * As per surgery's note, a total colectomy will be the last resort . * As per surgery's note, consideration for gastrograffin enema to evaluate degree of stool impaction and may also act as a diuretic Endocrine Dr. Atkinson Consulted- (02/27/17) As per conversation with Dr. Atkinson: Patient's chronic constipation is unlikely due to an endocrine etiology, since patient is still constipated at hyperthyroid state at this time Discontinue 175mcg synthroid today ( 02/27/17) for one week and start 100mcg synthroid a week from today (03/06/17). Status: Chronic (2) Abdominal pain Assessment and Plan: Recurrent constipation CT abdomen and pelvis- findings of severe constipation with fecal retention in sigmoid colon- Refer to complete report Abdomen X ray- 02/26/17- Severe constipation. Nonobstructive bowel gas pattern Ordered additional abdomen X-ray today (02/27/17) to monitor progress Zofran PRN Toradol 15 mg Q6 PRN for pain Status: Acute (3) Abnormal urinalysis Assessment and Plan: Dirty catch Repeat UA and UC- received but pending result Status: Acute (4) Hypothyroidism Assessment and Plan: Endocrine Dr. Atkinson Consulted- As per conversation with Dr. Atkinson, discontinue 175mcg synthroid today ( 02/27/17) for one week and start 100mcg synthroid a week from today (03/06/17). 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
[2017-02-28 06:28] LABS: BASO % 0.7 % (0.0-2.0); EOS # 0.5 K/uL (0.0-0.7); LYMPH # 2.7 K/uL (1.0-4.3); MEAN CELL VOLUME 90.3 fL (81.0-99.0); MEAN CORPUSCULAR HEMOGLOBIN 31.1 pg (27.0-31.0); MEAN CORPUSCULAR HGB CONC 34.5 g/dL (33.0-37.0); MONO # 0.4 K/uL (0.0-0.8); RED CELL DISTRIBUTION WIDTH 12.8 % (11.5-14.5); WHITE BLOOD COUNT 5.4 K/uL (4.8-10.8)
[2017-02-28 07:00] LABS: CHLORIDE 109 mmol/L (98-107)
[2017-02-28 07:01] LABS: POTASSIUM 3.5 mmol/L (3.6-5.2); SODIUM 140 mmol/L (132-148)
[2017-02-28 07:03] LABS: AST/SGOT 16 U/L (14-36); BILIRUBIN,TOTAL 0.4 mg/dL (0.2-1.3); CARBON DIOXIDE 22 mmol/L (22-30); GFR AFRICAN-AMERICAN > 60
[2017-02-28 07:04] LABS: ALKALINE PHOSPHATASE 39 U/L (38-126); ALT/SGPT 19 U/L (9-52); BLOOD UREA NITROGEN 4 mg/dL (7-17); CALCIUM 8.2 mg/dl (8.6-10.4); GLUCOSE,RANDOM 85 mg/dL (65-105)
[2017-02-28 07:08] LABS: T4 10.5 ug/dL (5.5-11.0)
[2017-02-28 07:21] LABS: CORTISOL AM 4.1 ug/dL (4.46-22.7); THYROID STIMULATING HORMONE < 0.02 mIU/L (0.46-4.68)
[2017-02-28 07:27] LABS: ALB/GLOB RATIO 1.1 (1.0-2.1)
[2017-02-28] MEDS ORDERED: Peg-Electrolyte Oral Soln 4L (Golytely) PO ONE ×3 (08:14→19:44)
[2017-02-28] MEDS ORDERED: Mineral Oil Enema 135 ml RC ONE ×2 (08:45→10:00)
--- NOTE | 2017-02-28 09:14 | CP.PCM.PN ---
Subjective - Date & Time of Evaluation Date of Evaluation: 02/28/17 Time of Evaluation: 09:08 - Subjective Subjective: Patient seen and examined, resting in bed comfortably eating breakfast. No acute events overnight. She had a scant bowel movement last evening. She denies abdominal pain, nausea, vomiting, fever/chills. Tolerating PO liquids without difficulty. 12 point review of systems performed, negative aside from mentioned above. Objective - Vital Signs/Intake and Output Vital Signs (last 24 hours): Temp Pulse Resp BP Pulse Ox 98.5 F 62 20 98/65 L 96 02/28/17 07:00 02/28/17 07:00 02/28/17 07:00 02/28/17 07:00 02/28/17 07:00 - Medications Medications: Current Medications Al Hydrox/Mg Hydrox/Simethicone (Maalox Plus 30 Ml) 30 ml PO HS [facility] Last Admin: 02/27/17 21:25 Dose: 30 ml Bisacodyl (Dulcolax) 10 mg [place] BID [facility] Last Admin: 02/27/17 17:39 Dose: 10 mg Famotidine (Pepcid) 20 mg IVP Q12 [facility] Last Admin: 02/27/17 21:25 Dose: 20 mg Sodium Chloride (Sodium Chloride 0.9%) 1,000 mls @ 100 mls/hr IV .Q10H [facility] Last Admin: 02/27/17 11:05 Dose: Not Given Ketorolac Tromethamine (Toradol) 15 mg IVP Q6 PRN PRN Reason: Pain, moderate (4-7) Mineral Oil (Fleet Mineral Oil Enema) 135 ml RC ONCE ONE Stop: 02/28/17 10:01 Ondansetron HCl (Zofran Inj) 4 mg IVP Q6H PRN PRN Reason: Nausea/Vomiting Polyethylene Glycol/Electrolytes (Golytely) 2,000 ml PO ONCE ONE Stop: 02/28/17 10:01 - Labs Labs: 02/28/17 06:21 02/28/17 06:21 PT 12.0 SECONDS (9.7-12.2) 02/25/17 06:53 INR 1.1 02/25/17 06:53 APTT 31 SECONDS (21-34) 02/25/17 06:53 - Constitutional Appears: Non-toxic, No Acute Distress - Head Exam Head Exam: NORMAL INSPECTION - Eye Exam Eye Exam: EOMI, Normal appearance - ENT Exam ENT Exam: Mucous Membranes Moist - Respiratory Exam Respiratory Exam: Clear to Ausculation Bilateral - Cardiovascular Exam Cardiovascular Exam: REGULAR RHYTHM, +S1, +S2 - GI/Abdominal Exam GI & Abdominal Exam: Soft, Normal Bowel Sounds Additional comments: non tender to palpation in four quadrants - Extremities Exam Extremities Exam: Normal Inspection - Skin Skin Exam: Dry, Intact, Normal Color, Warm Assessment and Plan - Assessment and Plan (Free Text) Assessment: Hypothyroidism Chronic constipation, medication refractory Plan: - Advance diet slowly as tolerated - Continue with aggressive bowel regimen including dulcolax, miralax and stool softner therapy daily. Would also encourage use of 1/2 gallon golytely for immediate symptomatic relief, though patient has refused medication in past. Would also repeat mineral oil enema today. - AXR from yesterday reviewed by me showing no evidence of distal fecal impaction or significant colonic distention - Follow up endocrine recommendations regarding adjustment of thyroid medication - Patient has had outpatient positive sitz marker study indicating slow transit constipation which has been medically refractory. In this situation, my recommendation is for strong consideration of colectomy to prevent ongoing recurrent constipation, patient has had numerous hospitalizations for similar complaints. Follow up surgical recommendations. - No ongoing GI issues, will sign off case. Patient to follow up in [facility] upon hospital discharge.
--- NOTE | 2017-02-28 11:02 | CP.PCM.PN ---
Subjective - Date & Time of Evaluation Date of Evaluation: 02/28/17 Time of Evaluation: 10:58 - Subjective Subjective: Gen Sx: Dr Nguyen Pt S&E. Reports pain has improved but still present. Refusing Go lytely. Had another small bowel movement yesterday. AXR shows evacuation of descending colon and rectum with proximal retained stool. GI input noted. Objective - Vital Signs/Intake and Output Vital Signs (last 24 hours): Temp Pulse Resp BP Pulse Ox 98.5 F 62 20 98/65 L 96 02/28/17 07:00 02/28/17 07:00 02/28/17 07:00 02/28/17 07:00 02/28/17 07:00 - Medications Medications: Current Medications Al Hydrox/Mg Hydrox/Simethicone (Maalox Plus 30 Ml) 30 ml PO HS [facility] Last Admin: 02/27/17 21:25 Dose: 30 ml Bisacodyl (Dulcolax) 10 mg [place] BID [facility] Last Admin: 02/28/17 10:18 Dose: 10 mg Famotidine (Pepcid) 20 mg IVP Q12 [facility] Last Admin: 02/28/17 10:16 Dose: 20 mg Sodium Chloride (Sodium Chloride 0.9%) 1,000 mls @ 100 mls/hr IV .Q10H [facility] Last Admin: 02/27/17 11:05 Dose: Not Given Ketorolac Tromethamine (Toradol) 15 mg IVP Q6 PRN PRN Reason: Pain, moderate (4-7) Ondansetron HCl (Zofran Inj) 4 mg IVP Q6H PRN PRN Reason: Nausea/Vomiting - Labs Labs: 02/28/17 06:21 02/28/17 06:21 PT 12.0 SECONDS (9.7-12.2) 02/25/17 06:53 INR 1.1 02/25/17 06:53 APTT 31 SECONDS (21-34) 02/25/17 06:53 - Constitutional Appears: Non-toxic, No Acute Distress - Respiratory Exam Respiratory Exam: absent: Accessory Muscle Use, Respiratory Distress - Cardiovascular Exam Cardiovascular Exam: REGULAR RHYTHM. absent: Tachycardia - GI/Abdominal Exam GI & Abdominal Exam: Distended, Firm (LLQ), Tenderness (diffuse but improved), Hypoactive Bowel Sounds - Neurological Exam Neurological Exam: Alert, Awake, Oriented x3 - Psychiatric Exam Psychiatric exam: Normal Affect, Normal Mood - Skin Skin Exam: Normal Color, Warm Assessment and Plan - Assessment and Plan (Free Text) Assessment: 32F with chronic constipation Plan: given results of Sitz marker study per GI, pt likely suffering from slow transit time However, this has not been a chronic problem and is a new onset issue since pt moved to the [place] re-evaluation by endocrinology as well as dietary eval. Pt should be on osmotic laxative such as Colace daily Surgery would be a last resort option. Would consider gastrograffin enema to evaluate degree of stool impaction and may also act as a diuretic will cont to follow Erin, PGY2
[2017-02-28] MEDS ORDERED: Potassium Chloride 20 mEq ER Tab PO ONE (14:15)
--- NOTE | 2017-02-28 14:15 | RAD ---
HISTORY: Recurrent Constipation COMPARISON: No prior. FINDINGS: BOWEL: No evidence of bowel obstruction. Free air could not be excluded on this supine radiograph. Moderate residual fecal material is noted. BONES: Normal. OTHER FINDINGS: None. IMPRESSION: No gross bowel obstruction.
--- NOTE | 2017-02-28 15:52 | PN ---
DATE: 02/28/2017 ROOM: 352 This is a 32-year-old female with diffuse abdominal pain and severe underlying constipation and actua lly almost obstipation and is now undergoing GI workup and management and is also being followed [facility] for metabolic management. She has history of hypothyroidism and currently on a very high dose of levothyroxine replacement therapy at 175 mcg daily, which actually has been discontinued for now bec ause of hyperthyroid levels as noted thereof. Her repeat thyroid studies today showed a T4 of 10.5 w ith a free T4 of 1.94, a TSH of less than 0.02 and this is indicative of the so-called euthyroid hype rthyroxinemia from levothyroxine overreplacement therapy. Her serum cortisol is low normals at 4.1 b ut this is related to the underlying hypoalbuminemia with low normal cortisol binding globulin causin g a falsely low serum cortisol level. We will actually discontinue the levothyroxine given as 175 mc g daily and restart it by next week as it takes 5-7 days for a washout of the higher dose ____ body. We will obtain serial chemistries and supplement accordingly as needed. We will continue also the lower and modified levothyroxine at 100 mcg daily by next week as indicated. We will follow. Dionne Atkinson MD cc: [id number] TT: 02/28/2017 15:51:40 Confirmation # [id number] Dictation # [id number]
[2017-02-28] MEDS: Sodium Chloride 0.9% 1,000 ML IV SCH (17:12)
[2017-02-28] MEDS ORDERED: Alum-Mag Hydrox-Simethicone Susp (30 mL) PO PRN (20:00)
--- NOTE | 2017-03-01 05:46 | CP.PCM.PN ---
<AlexKelicj E - Last Filed: 03/01/17 20:51> Subjective - Date & Time of Evaluation Date of Evaluation: 03/01/17 Time of Evaluation: 07:15 - Subjective Subjective: Medicine Note (PGY 1) : Dr. Ugalde's service Patient was seen and examined at bedside. Patient had no acute changes over night. Patient is stable with no new complaints. Patient continues to drink go- lytely as instructed and has been passing flatus. Patient reports nausea but denies fever, chills, vomiting, CP, SOB. Patient states that she is very aware of condition and medical recommendation and plans to adhere to bowel regimen. As per evening nurse, patient had a moderate BM at 18:54pm Objective - Vital Signs/Intake and Output Vital Signs (last 24 hours): Temp Pulse Resp BP Pulse Ox 99.2 F 65 20 104/64 99 03/01/17 00:00 03/01/17 00:00 03/01/17 00:00 03/01/17 00:00 03/01/17 00:00 Intake and Output: 02/28/17 03/01/17 18:59 06:59 Intake Total 1150 3300 Balance 1150 3300 - Medications Medications: Current Medications Al Hydrox/Mg Hydrox/Simethicone (Maalox Plus 30 Ml) 30 ml PO Q4H PRN PRN Reason: nausea or gastric discomfort Bisacodyl (Dulcolax) 10 mg [place] BID [facility] Last Admin: 02/28/17 17:08 Dose: 10 mg Famotidine (Pepcid) 20 mg IVP Q12 [facility] Last Admin: 02/28/17 21:07 Dose: 20 mg Sodium Chloride (Sodium Chloride 0.9%) 1,000 mls @ 100 mls/hr IV .Q10H [facility] Last Admin: 02/28/17 17:12 Dose: 100 mls/hr Metoclopramide HCl (Reglan) 10 mg IVP Q6H PRN PRN Reason: Nausea/Vomiting Ondansetron HCl (Zofran Inj) 4 mg IVP Q6H PRN PRN Reason: Nausea/Vomiting - Labs Labs: 02/28/17 06:21 02/28/17 06:21 PT 12.0 SECONDS (9.7-12.2) 02/25/17 06:53 INR 1.1 02/25/17 06:53 APTT 31 SECONDS (21-34) 02/25/17 06:53 - Constitutional Appears: Well, No Acute Distress - Head Exam Head Exam: NORMAL INSPECTION, NORMOCEPHALIC - Eye Exam Eye Exam: EOMI, Normal appearance - ENT Exam ENT Exam: Mucous Membranes Moist, Normal Exam - Neck Exam Neck Exam: Full ROM, Normal Inspection - Respiratory Exam Respiratory Exam: Clear to Ausculation Bilateral, NORMAL BREATHING PATTERN - Cardiovascular Exam Cardiovascular Exam: REGULAR RHYTHM, +S1, +S2 - GI/Abdominal Exam GI & Abdominal Exam: Soft (non-distended, mild tenderness ), Normal Bowel Sounds - Extremities Exam Extremities Exam: Normal Capillary Refill, Normal Inspection - Neurological Exam Neurological Exam: Alert, Altered, Awake, Oriented x3 - Psychiatric Exam Psychiatric exam: Normal Affect, Normal Mood - Skin Skin Exam: Dry, Normal Color, Warm Assessment and Plan - Assessment and Plan (Free Text) Assessment: 1) Slow Transit Constipation Assessment and Plan: Recurrent constipation- Failed outpatient therapy lactulose ordered x 1 dose - Patient refused lactulose dose (02/27/17 due to being nauseated) CT abdomen and pelvis- findings of severe constipation with fecal retention in sigmoid colon- Refer to complete report Biscadoyl Dulcolax 10mg [place] BID Colace 100mg PO TID Go-lytely NS@100cc/h Q10h GI Dr. Day/Emiliano consulted- fleet enema once today dulcolax 10mg suppository BID Continue with aggressive bowel regimen including dulcolax, miralax and stool softner therapy daily. Would also encourage use of 1/2 gallon golytely Surgery- Dr. Nguyen consulted- No surgical intervention at this time Recommendation : Pt should be encouraged to drink go lytely or alternative form of laxative whenever she goes 48 hours without bowel movement recommend colace TID as outpatient Monitor for BMs Endocrine Dr. Atkinson Consulted- As per conversation with Dr. Atkinson: Patient's chronic constipation is unlikely due to an endocrine etiology, since patient is still constipated at hyperthyroid state at this time Discontinue 175mcg synthroid today ( 02/27/17) for one week and start 100mcg synthroid a week from today (03/06/17). Status: Chronic (2) Abdominal pain Assessment and Plan: Recurrent constipation CT abdomen and pelvis- findings of severe constipation with fecal retention in sigmoid colon- Refer to complete report Abdomen X ray- 02/26/17- Severe constipation. Nonobstructive bowel gas pattern Abdomen X-ray today (02/28): No gross bowel obstruction Zofran 4mg IVP Q6H PRN Status: Acute (3) Abnormal urinalysis Assessment and Plan: Dirty catch Repeat UA and UC- (02/27/17): Multiple species- probable contamination Repeat UA and UC - (03/01/17) Status: Acute (4) Hypothyroidism Assessment and Plan: Endocrine Dr. Atkinson Consulted- As per conversation with Dr. Atkinson, discontinue 175mcg synthroid today ( 02/27/17) for one week and start 100mcg synthroid a week from today (03/06/17). 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 Pending Cortisol, Free T4, Prolactin, T4, TSH, Thyroglobulin AB, Thyroid Peroxidase AB - Ordered by TSH < 0.02, total T3 1.22, Free T4 2.23 Status: Chronic (5) Prophylactic measure Assessment and Plan: SCDs Pepcid 20 mg IV Q12 Cont to monitor for BMs Status: Acute <Gloria Ugalde V - Last Filed: 03/01/17 23:16> Objective - Vital Signs/Intake and Output Vital Signs (last 24 hours): Temp Pulse Resp BP Pulse Ox 98.1 F 56 L 20 107/68 99 03/01/17 15:00 03/01/17 15:00 03/01/17 15:00 03/01/17 15:00 03/01/17 15:00 Intake and Output: 03/01/17 03/02/17 18:59 06:59 Intake Total 1150 Balance 1150 - Medications Medications: Current Medications Al Hydrox/Mg Hydrox/Simethicone (Maalox Plus 30 Ml) 30 ml PO Q4H PRN PRN Reason: nausea or gastric discomfort Bisacodyl (Dulcolax) 10 mg [place] BID [facility] Last Admin: 03/01/17 18:39 Dose: 10 mg Docusate Sodium (Colace) 100 mg PO TID [facility] Last Admin: 03/01/17 18:39 Dose: 100 mg Famotidine (Pepcid) 20 mg IVP Q12 [facility] Last Admin: 03/01/17 11:01 Dose: 20 mg Sodium Chloride (Sodium Chloride 0.9%) 1,000 mls @ 100 mls/hr IV .Q10H [facility] Last Admin: 03/01/17 13:51 Dose: Not Given Metoclopramide HCl (Reglan) 10 mg IVP Q6H PRN PRN Reason: Nausea/Vomiting Ondansetron HCl (Zofran Inj) 4 mg IVP Q6H PRN PRN Reason: Nausea/Vomiting - Labs Labs: 03/01/17 06:14 03/01/17 06:14 PT 12.0 SECONDS (9.7-12.2) 02/25/17 06:53 INR 1.1 02/25/17 06:53 APTT 31 SECONDS (21-34) 02/25/17 06:53 Attending/Attestation - Attestation I have personally seen and examined this patient.: Yes I have fully participated in the care of the patient.: Yes I have reviewed all pertinent clinical information, including history, physical exam and plan: Yes Notes (Text): Patient seen, examined, and case discussed with day-time resident. Patient seen at bedside during afternoon rounds. Patient taking sips of golyteley. Patient will permit the use of Golelytyl given that the last resort is surgery. Will follow-up for bowel movement. Patient reporting flatus. Electrolytes repleted during rounds today. Ordered for follow-up xray in the morning Assessment/Plan 1) Slow Transit Constipation Assessment and Plan: CT abdomen and pelvis- findings of severe constipation with fecal retention in sigmoid colon- Refer to complete report GI Dr. Day consult-->help appreciated * Recommend for with aggressive bowel regimen including dulcolax, miralax and stool softner therapy daily. Would also encourage use of 1/2 gallon golytely for immediate symptomatic relief, though patient has refused medication in past. Would also repeat mineral oil enema today. * Patient has had outpatient positive sitz marker study indicating slow transit constipation which has been medically refractory. In this situation, my recommendation is for strong consideration of colectomy to prevent ongoing recurrent constipation, patient has had numerous hospitalizations for similar complaints. Follow up surgical recommendations. * GI has signed off 02/28/17 General Surgery- Dr. Nguyen consulted-help appreciated * Per last note, last resort is colectomy * Per surgery note, consider gastrograffine enema to evaluate degree of stool impaction and possible diuretic * Recommending for bowel regimen and outpatient colace Endocrine Dr. Atkinson Consulted-help appreciated * Patient's chronic constipation is unlikely due to an endocrine etiology, since patient is still constipated at hyperthyroid state at this time * Recommend to discontinue 175mcg synthroid today ( 02/27/17) for one week and start 100mcg synthroid a week from today (03/06/17). * Signed off Status: Chronic (2) Abdominal pain Assessment and Plan: Recurrent constipation CT abdomen and pelvis- findings of severe constipation with fecal retention in sigmoid colon- Refer to complete report Abdomen X ray- 02/26/17- Severe constipation. Nonobstructive bowel gas pattern Abdominal xray- 02/28/17--No gross bowel obstruction Ordered for follow-up in the morning Status: Acute (3) Frequency Assessment and Plan: Pending urine culture-->contaminated Ordered for repeat urine culture Will start Rocephin 1 gram IV q daily repeat UA: +2 ketones Status: Acute (4) Hypothyroidism Assessment and Plan: Endocrine Dr. Atkinson Consulted- * As per conversation with Dr. Atkinson, discontinue 175mcg synthroid today ( 02/27/17 ) for one week and start 100mcg synthroid a week from today (03/06/17); which is reflect in her current progress note. 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
[2017-03-01 06:59] LABS: BASO % 0.9 % (0.0-2.0); EOS # 0.5 K/uL (0.0-0.7); EOS % 8.4 % (0.0-4.0); HEMATOCRIT 32.8 % (34.0-47.0); LYMPH % 54.5 % (20.0-40.0); MEAN CELL VOLUME 90.4 fL (81.0-99.0); MEAN CORPUSCULAR HGB CONC 34.3 g/dL (33.0-37.0); MEAN PLATELET VOLUME 9.5 fL (7.2-11.7); MONO # 0.4 K/uL (0.0-0.8); MONO % 6.4 % (0.0-10.0); RED CELL DISTRIBUTION WIDTH 12.6 % (11.5-14.5); WHITE BLOOD COUNT 5.5 K/uL (4.8-10.8)
[2017-03-01 07:01] LABS: CHLORIDE 105 mmol/L (98-107)
[2017-03-01 07:02] LABS: POTASSIUM 3.7 mmol/L (3.6-5.2); SODIUM 138 mmol/L (132-148)
[2017-03-01 07:04] LABS: ALB/GLOB RATIO 1.3 (1.0-2.1); ALKALINE PHOSPHATASE 39 U/L (38-126); ALT/SGPT 19 U/L (9-52); AST/SGOT 14 U/L (14-36); BILIRUBIN,TOTAL 0.4 mg/dL (0.2-1.3); BLOOD UREA NITROGEN 3 mg/dL (7-17); CARBON DIOXIDE 22 mmol/L (22-30); GFR AFRICAN-AMERICAN > 60; GLUCOSE,RANDOM 82 mg/dL (65-105); TOTAL PROTEIN 5.6 g/dL (6.3-8.3)
[2017-03-01 07:05] LABS: CALCIUM 7.6 mg/dl (8.6-10.4); MAGNESIUM 1.7 mg/dL (1.6-2.3); PHOSPHOROUS 3.6 mg/dL (2.5-4.5)
--- NOTE | 2017-03-01 09:11 | CP.PCM.PN ---
Subjective - Date & Time of Evaluation Date of Evaluation: 03/01/17 Time of Evaluation: 09:09 - Subjective Subjective: Gen Sx: Dr Nguyen Pt S&E. NAEO. No further BM. Pt adamently does not want any surgical intervention. Now drinking Go Lytely. Passing flatus. Objective - Vital Signs/Intake and Output Vital Signs (last 24 hours): Temp Pulse Resp BP Pulse Ox 98.3 F 50 L 20 101/58 L 98 03/01/17 07:20 03/01/17 07:20 03/01/17 07:20 03/01/17 07:20 03/01/17 07:20 Intake and Output: 03/01/17 03/01/17 06:59 18:59 Intake Total 4850 Balance 4850 - Medications Medications: Current Medications Al Hydrox/Mg Hydrox/Simethicone (Maalox Plus 30 Ml) 30 ml PO Q4H PRN PRN Reason: nausea or gastric discomfort Bisacodyl (Dulcolax) 10 mg [place] BID [facility] Last Admin: 02/28/17 17:08 Dose: 10 mg Famotidine (Pepcid) 20 mg IVP Q12 [facility] Last Admin: 02/28/17 21:07 Dose: 20 mg Sodium Chloride (Sodium Chloride 0.9%) 1,000 mls @ 100 mls/hr IV .Q10H [facility] Last Admin: 02/28/17 17:12 Dose: 100 mls/hr Metoclopramide HCl (Reglan) 10 mg IVP Q6H PRN PRN Reason: Nausea/Vomiting Ondansetron HCl (Zofran Inj) 4 mg IVP Q6H PRN PRN Reason: Nausea/Vomiting - Labs Labs: 03/01/17 06:14 03/01/17 06:14 PT 12.0 SECONDS (9.7-12.2) 02/25/17 06:53 INR 1.1 02/25/17 06:53 APTT 31 SECONDS (21-34) 02/25/17 06:53 - Constitutional Appears: Non-toxic, No Acute Distress - Respiratory Exam Respiratory Exam: absent: Accessory Muscle Use, Respiratory Distress - Cardiovascular Exam Cardiovascular Exam: REGULAR RHYTHM. absent: Tachycardia - GI/Abdominal Exam GI & Abdominal Exam: Firm (palpable stool), Soft, Tenderness (improved). absent : Distended - Neurological Exam Neurological Exam: Alert, Awake, Oriented x3 - Psychiatric Exam Psychiatric exam: Normal Affect, Normal Mood - Skin Skin Exam: Normal Color, Warm Assessment and Plan - Assessment and Plan (Free Text) Assessment: 32F with chronic constipation Plan: cont bowel regimen no surgical intervention planned d/w Dr Patrick Khan, PGY2
[2017-03-01] MEDS: Sodium Chloride 0.9% 1,000 ML IV SCH ×3 (11:01→22:10)
--- NOTE | 2017-03-01 16:52 | PN ---
DATE: 03/01/2017 LOCATION: Room 352. HISTORY OF PRESENT ILLNESS: This is a 32-year-old female with recent known history of hypothyroidism with variable dosing regimen given by her primary physician, and is now being referred for diabetic evaluation and management. She is currently being managed for severe constipation associated with ab dominal pain and the possibility of an underlying metabolic condition, i.e., hypothyroidism, causing the aforementioned has been brought in for discussion as noted. However, at this time she is already euthyroid and confirmed biochemically given hyperthyroid-like conditions as noted. LABORATORY DATA: Her latest thyroid studies showed a T4 of 10.5 with a free T4 of 1.94 and a TSH of less than 0.02. ASSESSMENT AND PLAN: So, at this time, will continue to hold off on the levothyroxine to allow for a therapeutic washout of the medications given at a much higher dose of 175 mcg daily. Would secondar real start her back on the optimal dose for her weight of levothyroxine given at 100 mcg daily and luis l titrate accordingly to optimize her TSH values between 1 and 2 million units per milliliter. Again , it takes 4-6 weeks for full dose equilibration and for normalization of the TSH level thereof. We will sign off from the endocrine care of the patient and continue the serial testing otherwise as noted, but would hold off the re-initiation of the levothyroxine until after 5-7 days, and this could be done post-discharge with instructions to be given to the patient to start on a much lower dose re gimen, as mentioned. She is to follow with her medical doctor for outpatient medical dose adju stments as indicated. Will follow. Dionne Atkinson MD cc: [phone] TT: 03/01/2017 16:51:39 Confirmation # [id number] Dictation # [id number] dn
[2017-03-02 08:03] LABS: BASO % 0.6 % (0.0-2.0); EOS # 0.4 K/uL (0.0-0.7); EOS % 7.5 % (0.0-4.0); HEMATOCRIT 36.1 % (34.0-47.0); LYMPH # 2.9 K/uL (1.0-4.3); LYMPH % 48.3 % (20.0-40.0); MEAN CELL VOLUME 91.1 fL (81.0-99.0); MEAN CORPUSCULAR HEMOGLOBIN 31.2 pg (27.0-31.0); MEAN CORPUSCULAR HGB CONC 34.3 g/dL (33.0-37.0); MEAN PLATELET VOLUME 9.3 fL (7.2-11.7); MONO # 0.4 K/uL (0.0-0.8); MONO % 7.3 % (0.0-10.0); RED CELL DISTRIBUTION WIDTH 12.7 % (11.5-14.5)
[2017-03-02] MEDS: Sodium Chloride 0.9% 1,000 ML IV SCH ×2 (08:04→18:15)
[2017-03-02 08:11] LABS: CHLORIDE 104 mmol/L (98-107); POTASSIUM 3.6 mmol/L (3.6-5.2); SODIUM 138 mmol/L (132-148)
[2017-03-02 08:13] LABS: AST/SGOT 19 U/L (14-36); BILIRUBIN,TOTAL 0.5 mg/dL (0.2-1.3); CARBON DIOXIDE 23 mmol/L (22-30); GFR AFRICAN-AMERICAN > 60
[2017-03-02 08:14] LABS: ALKALINE PHOSPHATASE 41 U/L (38-126); ALT/SGPT 12 U/L (9-52); BLOOD UREA NITROGEN 6 mg/dL (7-17); GLUCOSE,RANDOM 83 mg/dL (65-105)
[2017-03-02 08:31] LABS: TOTAL PROTEIN 6.7 g/dL (6.3-8.3)
[2017-03-02] MEDS: Sucralfate 1 gm/10 ml Oral Susp UD PO SCH ×2 (13:55→22:08)
[2017-03-02 14:17] LABS: RBC URINE 2 /hpf (0-3); URINE BILIRUBIN NEGATIVE (NEGATIVE); URINE BLOOD NEGATIVE (NEGATIVE); URINE COLOR Yellow (YELLOW); URINE GLUCOSE (UA) NORMAL (Normal); URINE KETONE NEGATIVE (NEGATIVE); URINE LEUKOCYTE ESTERASE NEG Leu/uL (Negative); URINE PROTEIN NEGATIVE (NEGATIVE); WBC URINE 1 /hpf (0-5)
--- NOTE | 2017-03-02 15:41 | RAD ---
HISTORY: resolution of constipation COMPARISON: 02/28/2017 FINDINGS: BOWEL: No evidence of bowel obstruction. Mild decrease in the extent of retained feces when compared to the prior examination. BONES: Normal. OTHER FINDINGS: None. IMPRESSION: No bowel obstruction. Mildly decreased retained feces.
--- NOTE | 2017-03-02 20:37 | CP.PCM.PN ---
<Gloria Johnson E - Last Filed: 03/02/17 20:46> Subjective - Date & Time of Evaluation Date of Evaluation: 03/02/17 Time of Evaluation: 07:25 - Subjective Subjective: Medicine Note (PGY 1) : Dr. Ugalde's service Patient was seen and examined at bedside. Patient had no acute changes over night. Patient is stable with no new complaints. Patient continues to drink go- lytely as instructed and has been passing flatus and had a small bowel movement yesterday. Patient reports nausea but denies fever, chills, vomiting, CP, SOB. Patient states that she is very aware of her condition and medical recommendations and plans to adhere to bowel regimen. Objective - Vital Signs/Intake and Output Vital Signs (last 24 hours): Temp Pulse Resp BP Pulse Ox 98 F 60 20 110/72 98 03/02/17 15:05 03/02/17 15:05 03/02/17 15:05 03/02/17 15:05 03/02/17 15:05 - Medications Medications: Current Medications Al Hydrox/Mg Hydrox/Simethicone (Maalox Plus 30 Ml) 30 ml PO Q4H PRN PRN Reason: nausea or gastric discomfort Bisacodyl (Dulcolax) 10 mg [place] BID [facility] Last Admin: 03/02/17 17:37 Dose: 10 mg Docusate Sodium (Colace) 100 mg PO TID [facility] Last Admin: 03/02/17 17:35 Dose: 100 mg Famotidine (Pepcid) 20 mg IVP Q12 [facility] Last Admin: 03/02/17 11:45 Dose: 20 mg Sodium Chloride (Sodium Chloride 0.9%) 1,000 mls @ 100 mls/hr IV .Q10H [facility] Last Admin: 03/02/17 08:04 Dose: Not Given Ceftriaxone Sodium 1 gm/ (Sodium Chloride) 100 mls @ 100 mls/hr IVPB DAILY [facility] Last Admin: 03/02/17 09:58 Dose: 100 mls/hr Metoclopramide HCl (Reglan) 10 mg IVP Q6H PRN PRN Reason: Nausea/Vomiting Ondansetron HCl (Zofran Inj) 4 mg IVP Q6H PRN PRN Reason: Nausea/Vomiting Sucralfate (Carafate Oral Susp) 1 gm PO Q12 [facility] Last Admin: 03/02/17 13:55 Dose: 1 gm - Labs Labs: 03/02/17 07:39 03/02/17 07:39 PT 12.0 SECONDS (9.7-12.2) 02/25/17 06:53 INR 1.1 02/25/17 06:53 APTT 31 SECONDS (21-34) 02/25/17 06:53 Assessment and Plan - Assessment and Plan (Free Text) Assessment: ) Slow Transit Constipation Assessment and Plan: Recurrent constipation- Failed outpatient therapy lactulose ordered x 1 dose - Patient refused lactulose dose (02/27/17 due to being nauseated) CT abdomen and pelvis- findings of severe constipation with fecal retention in sigmoid colon- Refer to complete report Biscadoyl Dulcolax 10mg [place] BID Colace 100mg PO TID Go-lytely NS@100cc/h Q10h Sucralfate 1gm PO Q12H Maalox 30ml PO q4h GI Dr. Day/Emiliano consulted- fleet enema once today dulcolax 10mg suppository BID Continue with aggressive bowel regimen including dulcolax, miralax and stool softner therapy daily. Would also encourage use of 1/2 gallon golytely Surgery- Dr. Nguyen consulted- No surgical intervention at this time Recommendation : Pt should be encouraged to drink go lytely or alternative form of laxative whenever she goes 48 hours without bowel movement recommend colace TID as outpatient Monitor for BMs Endocrine Dr. Atkinson Consulted- As per conversation with Dr. Atkinson: Patient's chronic constipation is unlikely due to an endocrine etiology, since patient is still constipated at hyperthyroid state at this time Discontinue 175mcg synthroid today ( 02/27/17) for one week and start 100mcg synthroid a week from today (03/06/17). Status: Chronic (2) Abdominal pain Assessment and Plan: Recurrent constipation CT abdomen and pelvis- findings of severe constipation with fecal retention in sigmoid colon- Refer to complete report Abdomen X ray- 02/26/17- Severe constipation. Nonobstructive bowel gas pattern Abdomen X-ray today (02/28): No gross bowel obstruction Repeat abdominal X-ray 03/02/17: No bowel obstruction . Mildly decreased retain feces Zofran 4mg IVP Q6H PRN Reglan 10mg IV Q6H PRN Status: Acute (3) Abnormal urinalysis Assessment and Plan: Dirty catch Repeat UA and UC- (02/27/17): Multiple species- probable contamination Repeat UA and UC - (03/01/17): Pending result Status: Acute (4) Hypothyroidism Assessment and Plan: Endocrine Dr. Atkinson Consulted- As per conversation with Dr. Atkinson, discontinue 175mcg synthroid today ( 02/27/17) for one week and start 100mcg synthroid a week from today (03/06/17). 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 Pending Cortisol, Free T4, Prolactin, T4, TSH, Thyroglobulin AB, Thyroid Peroxidase AB - Ordered by TSH < 0.02, total T3 1.22, Free T4 2.23 Status: Chronic (5) Prophylactic measure Assessment and Plan: SCDs Pepcid 20 mg IV Q12 Cont to monitor for BMs Status: Acute <Gloria Ugalde V - Last Filed: 03/03/17 10:07> Objective - Vital Signs/Intake and Output Vital Signs (last 24 hours): Temp Pulse Resp BP Pulse Ox 98 F 80 20 110/60 97 03/03/17 08:00 03/03/17 08:00 03/03/17 08:00 03/03/17 08:00 03/03/17 08:00 Intake and Output: 03/03/17 03/03/17 06:59 18:59 Intake Total 2120 Balance 2120 - Medications Medications: Current Medications Al Hydrox/Mg Hydrox/Simethicone (Maalox Plus 30 Ml) 30 ml PO Q4H PRN PRN Reason: nausea or gastric discomfort Last Admin: 03/03/17 09:47 Dose: 30 ml Bisacodyl (Dulcolax) 10 mg [place] BID [facility] Last Admin: 03/03/17 09:45 Dose: 10 mg Docusate Sodium (Colace) 100 mg PO TID [facility] Last Admin: 03/03/17 09:45 Dose: 100 mg Famotidine (Pepcid) 20 mg IVP Q12 [facility] Last Admin: 03/03/17 09:45 Dose: 20 mg Ceftriaxone Sodium 1 gm/ (Sodium Chloride) 100 mls @ 100 mls/hr IVPB DAILY [facility] Last Admin: 03/03/17 09:45 Dose: 100 mls/hr Metoclopramide HCl (Reglan) 10 mg IVP Q6H PRN PRN Reason: Nausea/Vomiting Ondansetron HCl (Zofran Inj) 4 mg IVP Q6H PRN PRN Reason: Nausea/Vomiting Sucralfate (Carafate Oral Susp) 1 gm PO Q12 [facility] Last Admin: 03/03/17 09:45 Dose: 1 gm - Labs Labs: 03/03/17 07:08 03/03/17 07:08 PT 12.0 SECONDS (9.7-12.2) 02/25/17 06:53 INR 1.1 02/25/17 06:53 APTT 31 SECONDS (21-34) 02/25/17 06:53 Attending/Attestation - Attestation I have personally seen and examined this patient.: Yes I have fully participated in the care of the patient.: Yes I have reviewed all pertinent clinical information, including history, physical exam and plan: Yes Notes (Text): This is a late computer entry for 03/02/17. Patient seen, examined and case discussed with day-time resident. Patient is slowly drinking the goleletyl (almost more than half the jug) she has taken. reports flatus and small bowel movement, but reports she would like to eat solid food. Patient advised there are PRN for nausa available if she needs. Repeat xray shows mildly decreased feces. Awaiting bowel movement
[2017-03-03] MEDS: Sodium Chloride 0.9% 1,000 ML IV SCH ×2 (03:15→07:00)
--- NOTE | 2017-03-03 05:54 | CP.PCM.PN ---
Objective - Vital Signs/Intake and Output Vital Signs (last 24 hours): Temp Pulse Resp BP Pulse Ox 98.2 F 64 20 100/67 97 03/03/17 00:00 03/03/17 00:00 03/03/17 00:00 03/03/17 00:00 03/03/17 00:00 Intake and Output: 03/02/17 03/03/17 18:59 06:59 Intake Total 1140 Balance 1140 - Medications Medications: Current Medications Al Hydrox/Mg Hydrox/Simethicone (Maalox Plus 30 Ml) 30 ml PO Q4H PRN PRN Reason: nausea or gastric discomfort Bisacodyl (Dulcolax) 10 mg [place] BID [facility] Last Admin: 03/02/17 17:37 Dose: 10 mg Docusate Sodium (Colace) 100 mg PO TID [facility] Last Admin: 03/02/17 17:35 Dose: 100 mg Famotidine (Pepcid) 20 mg IVP Q12 [facility] Last Admin: 03/02/17 22:09 Dose: 20 mg Sodium Chloride (Sodium Chloride 0.9%) 1,000 mls @ 100 mls/hr IV .Q10H [facility] Last Admin: 03/02/17 18:15 Dose: 100 mls/hr Ceftriaxone Sodium 1 gm/ (Sodium Chloride) 100 mls @ 100 mls/hr IVPB DAILY [facility] Last Admin: 03/02/17 09:58 Dose: 100 mls/hr Metoclopramide HCl (Reglan) 10 mg IVP Q6H PRN PRN Reason: Nausea/Vomiting Ondansetron HCl (Zofran Inj) 4 mg IVP Q6H PRN PRN Reason: Nausea/Vomiting Sucralfate (Carafate Oral Susp) 1 gm PO Q12 [facility] Last Admin: 03/02/17 22:08 Dose: 1 gm - Labs Labs: 03/02/17 07:39 03/02/17 07:39 PT 12.0 SECONDS (9.7-12.2) 02/25/17 06:53 INR 1.1 02/25/17 06:53 APTT 31 SECONDS (21-34) 02/25/17 06:53
[2017-03-03 07:27] LABS: BASO % 0.6 % (0.0-2.0); EOS # 0.4 K/uL (0.0-0.7); EOS % 7.2 % (0.0-4.0); HEMATOCRIT 33.2 % (34.0-47.0); LYMPH # 2.9 K/uL (1.0-4.3); MEAN CELL VOLUME 90.8 fL (81.0-99.0); MEAN CORPUSCULAR HEMOGLOBIN 31.4 pg (27.0-31.0); MEAN CORPUSCULAR HGB CONC 34.6 g/dL (33.0-37.0); MEAN PLATELET VOLUME 9.4 fL (7.2-11.7); MONO # 0.4 K/uL (0.0-0.8); MONO % 5.8 % (0.0-10.0); NRBC % 0.1 % (0.0-2.0); RED CELL DISTRIBUTION WIDTH 12.5 % (11.5-14.5); WHITE BLOOD COUNT 6.1 K/uL (4.8-10.8)
[2017-03-03 07:44] LABS: CHLORIDE 108 mmol/L (98-107); POTASSIUM 3.7 mmol/L (3.6-5.2); SODIUM 140 mmol/L (132-148)
[2017-03-03 07:46] LABS: ALKALINE PHOSPHATASE 40 U/L (38-126); ALT/SGPT 18 U/L (9-52); AST/SGOT 18 U/L (14-36); BILIRUBIN,TOTAL 0.4 mg/dL (0.2-1.3); BLOOD UREA NITROGEN 7 mg/dL (7-17); CARBON DIOXIDE 22 mmol/L (22-30); GFR AFRICAN-AMERICAN > 60; TOTAL PROTEIN 5.9 g/dL (6.3-8.3)
[2017-03-03 07:47] LABS: CALCIUM 8.2 mg/dl (8.6-10.4); GLUCOSE,RANDOM 91 mg/dL (65-105); MAGNESIUM 2.1 mg/dL (1.6-2.3); PHOSPHOROUS 4.5 mg/dL (2.5-4.5)
[2017-03-03] MEDS: Sucralfate 1 gm/10 ml Oral Susp UD PO SCH (09:45)
--- NOTE | 2017-03-03 15:46 | CP.PCM.DIS ---
Provider - Provider Date of Admission: 02/24/17 18:30 Attending physician: Gloria Ugalde DO Time Spent in preparation of Discharge (in minutes): 45 Diagnosis - Discharge Diagnosis (1) Constipation Status: Chronic Hospital Course - Lab Results Lab Results: Micro Results 02/27/17 17:00 Urine,Clean Catch Urine Culture - Final 10-50,000 CFU/ML. MULTIPLE SPECIES. PROBABLE CONTAMINATION. Most Recent Lab Values WBC 6.1 K/uL (4.8-10.8) 03/03/17 07:08 RBC 3.66 Mil/uL (3.80-5.20) L 03/03/17 07:08 Hgb 11.5 g/dL (11.0-16.0) 03/03/17 07:08 Hct 33.2 % (34.0-47.0) L 03/03/17 07:08 MCV 90.8 fL (81.0-99.0) 03/03/17 07:08 MCH 31.4 pg (27.0-31.0) H 03/03/17 07:08 MCHC 34.6 g/dL (33.0-37.0) 03/03/17 07:08 RDW 12.5 % (11.5-14.5) 03/03/17 07:08 Plt Count 210 K/uL (130-400) 03/03/17 07:08 MPV 9.4 fL (7.2-11.7) 03/03/17 07:08 Neut % (Auto) 38.4 % (50.0-75.0) L 03/03/17 07:08 Lymph % (Auto) 48.0 % (20.0-40.0) H 03/03/17 07:08 [place] % (Auto) 5.8 % (0.0-10.0) 03/03/17 07:08 Eos % (Auto) 7.2 % (0.0-4.0) H 03/03/17 07:08 Baso % (Auto) 0.6 % (0.0-2.0) 03/03/17 07:08 Neut # 2.4 K/uL (1.8-7.0) 03/03/17 07:08 Lymph # 2.9 K/uL (1.0-4.3) 03/03/17 07:08 [place] # 0.4 K/uL (0.0-0.8) 03/03/17 07:08 Eos # 0.4 K/uL (0.0-0.7) 03/03/17 07:08 Baso # 0.0 K/uL (0.0-0.2) 03/03/17 07:08 PT 12.0 SECONDS (9.7-12.2) 02/25/17 06:53 INR 1.1 02/25/17 06:53 APTT 31 SECONDS (21-34) 02/25/17 06:53 Sodium 140 mmol/L (132-148) 03/03/17 07:08 Potassium 3.7 mmol/L (3.6-5.2) 03/03/17 07:08 Chloride 108 mmol/L (98-107) H 03/03/17 07:08 Carbon Dioxide 22 mmol/L (22-30) 03/03/17 07:08 Anion Gap 14 (10-20) 03/03/17 07:08 BUN 7 mg/dL (7-17) 03/03/17 07:08 Creatinine 0.6 MG/DL (0.7-1.2) L 03/03/17 07:08 Est GFR ( Amer) > 60 03/03/17 07:08 Est GFR (Non-Af Amer) > 60 03/03/17 07:08 Random Glucose 91 mg/dL (65-105) 03/03/17 07:08 Calcium 8.2 mg/dl (8.6-10.4) L 03/03/17 07:08 Phosphorus 4.5 mg/dL (2.5-4.5) 03/03/17 07:08 Magnesium 2.1 mg/dL (1.6-2.3) 03/03/17 07:08 Total Bilirubin 0.4 mg/dL (0.2-1.3) 03/03/17 07:08 AST 18 U/L (14-36) 03/03/17 07:08 ALT 18 U/L (9-52) 03/03/17 07:08 Alkaline Phosphatase 40 U/L (38-126) 03/03/17 07:08 Total Protein 5.9 g/dL (6.3-8.3) L 03/03/17 07:08 Albumin 3.0 g/dL (3.5-5.0) L 03/03/17 07:08 Globulin 2.9 gm/dL (2.2-3.9) 03/03/17 07:08 Albumin/Globulin Ratio 1.0 (1.0-2.1) 03/03/17 07:08 Lipase 65 U/L (23-300) 02/24/17 15:41 Free T4 1.94 ng/dL (0.78-2.19) 02/28/17 06:21 Thyroxine (T4) 10.5 ug/dL (5.5-11.0) 02/28/17 06:21 Total T3 1.22 nmol/L (1.49-2.60) L 02/25/17 06:53 TSH 3rd Generation < 0.02 mIU/L (0.46-4.68) L 02/28/17 06:21 Prolactin 25.0 ng/mL (3.0-18.9) H 02/28/17 06:21 Cortisol AM Sample 4.1 ug/dL (4.46-22.7) L 02/28/17 06:21 Urine Color Yellow (YELLOW) 03/02/17 14:22 Urine Clarity Clear (Clear) 03/02/17 14:22 Urine pH 7.0 (5.0-8.0) 03/02/17 14:22 Ur Specific [place] 1.013 (1.003-1.030) 03/02/17 14:22 Urine Protein Negative mg/dL (NEGATIVE) 03/02/17 14:22 Urine Glucose (UA) Normal mg/dL (Normal) 03/02/17 14:22 Urine Ketones Negative mg/dL (NEGATIVE) 03/02/17 14:22 Urine Blood Negative (NEGATIVE) 03/02/17 14:22 Urine Nitrate Negative (NEGATIVE) 03/02/17 14:22 Urine Bilirubin Negative (NEGATIVE) 03/02/17 14:22 Urine Urobilinogen 4.0 mg/dL (0.2-1.0) H 03/02/17 14:22 Ur Leukocyte Esterase Neg [place]/uL (Negative) 03/02/17 14:22 Urine WBC (Auto) 1 /hpf (0-5) 03/02/17 14:22 Urine RBC (Auto) 2 /hpf (0-3) 03/02/17 14:22 Ur Squamous Epith Cells 2 /hpf (0-5) 03/02/17 14:22 Urine HCG, Qual Negative (NEGATIVE) 02/24/17 15:41 Thyroperoxidase Ab 526 IU/mL (<9) H 02/28/17 06:21 Thyroglobulin Antibody <1 IU/mL (< OR = 1) 02/28/17 06:21 - Hospital Course Hospital Course: CC: Recurrent Constipation As per admission: HPI: 32 yo female with PMHx significant for hypothyroidism and recurrent constipation presents with complaints of abdominal pain and constipation for approximately 18-20 days. The pain is crampy and sharp located diffusely all over the abdomen rated a 10/11 in intensity. Patient has been severely constipated with now new onset nausea and vomiting associated with meals for the past couple of days while on Linzess therapy. Patient was evaluated in the GI clinic today by Dr. Astudillo who later referred her to the ED due to failed outpatient therapy. Patient states that she is limited to sips of soup and a few bites of rice. Patient states that the pain is uncomfortable, limiting her from daily activities. She also admits to two recent episodes of dysuria. She admits to losing eight pounds in the past two weeks due to her symptoms. She denies urinary frequency or urgency. She also denied headaches, chest pain, palpitations, paresthesias, hematemesis, hematochezia, diarrhea, subjective fevers or chills or recent travel at this time. Hospital Course: Patient was admitted on 02/24/17 for recurrent chronic constipation with CT abdomen & Pelvis with IV contrast showing severe constipation with fecal retention in the redundant sigmoid with no evidence of bowel obstruction. Subsequently, general surgery, Dr. Nguyen was consulted, who stated that may need prophylactic colectomy in the future. Furthermore, GI , Dr. Brand's group was consulted and recommended that patient be medically managed aggressive on bowel regimen with: Fleet enema Q3H and Dulcolax suppository BID, GoLytely, and barium esophagram when patient less uncomfortable; patient did refuse the Go- Lytely initially. Patient's bowel regiment continued to change in order to obtain optimal treatment. Patient would sometimes have small bowel movements. Patient continued to be managed aggressively with bowel regimen with the addition of Go-lytely. In addition , Dr. Atkinson, endocrinology was consulted in order to r/o endocrine etiology for patient's constipation. Dr. Atkinson conclude that patient's chronic constipation is unlikely due to an endocrine etiology, since patient is still constipated at hyperthyroid state at this time, patient' s regimen of 175mcg synthroid should be discontinued for one week and to resume on a lower does of 100mcg synthroid on 03/06/17. Subsequent abdominal X-rays were given in order to monitor patient's progress. Abdominal X-ray on 02/26/17 & 02/28/17 showed severe constipation and moderate residual fecal material noted, respectively. On 03/02/17, patient had small 8 bowel movements with abdominal X- ray on 03/02/17, confirming mildly decreased retained feces. Patient was then discharge on Docusate [Colace] 100 mg PO TID #90 cap, Lactulose [Enulose] 20 gm PO Q3 30 Days, Levothyroxine [Synthroid] 100 mcg PO QAM #30 Polyethylene Glycol 3350 [Miralax] 17 gm PO DAILY 30 Days with no surgical intervention planned as per GI. Discharge Exam - Head Exam Head Exam: NORMAL INSPECTION, NORMOCEPHALIC - Eye Exam Eye Exam: EOMI, Normal appearance - ENT Exam ENT Exam: Mucous Membranes Moist, Normal Exam - Respiratory Exam Respiratory Exam: Clear to PA & Lateral, NORMAL BREATHING PATTERN - Cardiovascular Exam Cardiovascular Exam: REGULAR RHYTHM, +S1, +S2 - GI/Abdominal Exam GI & Abdominal Exam: Normal Bowel Sounds, Soft - Extremities Exam Extremities exam: normal capillary refill, normal inspection - Neurological Exam Neurological exam: Alert, Oriented x3 - Psychiatric Exam Psychiatric exam: Normal Affect, Normal Mood - Skin Skin Exam: Dry, Normal Color, Warm Discharge Plan - Discharge Medications Prescriptions: Docusate [Colace] 100 mg PO TID #90 cap Lactulose [Enulose] 20 gm PO Q3 30 Days Levothyroxine [Synthroid] 100 mcg PO QAM #30 Polyethylene Glycol 3350 [Miralax] 17 gm PO DAILY 30 Days - Follow Up Plan Condition: FAIR Disposition: HOME/ ROUTINE Instructions: Constipation (DC), Constipation (GEN)
[2017-03-03 15:57] VITALS: BP 103/68; PULSE 71; TEMP 98; O2SAT 98
== END 2017-03-03 21:44 | disposition home or self-care (01) | DRG 183 ==
LOC: C.ER 14:14 → C.9OBSV 15:11 → OBSVTOIN 18:30 → C.3T 19:30
PROVIDERS: ADMIT Hospitalist; ATTEND Hospitalist
DX: K59.01 Slow transit constipation (principal); E03.9 Hypothyroidism, unspecified; E07.81 Sick-euthyroid syndrome; Z68.23 Body mass index [BMI] 23.0-23.9, adult

== ENCOUNTER 2017-03-13 13:24 | Emergency (ER) | payer OTHER ==
[2017-03-13 13:24] VITALS: BMI 26.4
[2017-03-13 13:42] VITALS: O2SAT 100
[2017-03-13] MEDS ORDERED: Sodium Chloride 0.9% 1,000 ML IV ONE ×2 (15:12→17:56)
[2017-03-13] MEDS ORDERED: Sodium Chloride 0.9% 1,000 ML ONE (16:02)
[2017-03-13 16:18] LABS: BASO % 0.7 % (0.0-2.0); EOS # 0.2 K/uL (0.0-0.7); EOS % 4.5 % (0.0-4.0); LYMPH # 2.4 K/uL (1.0-4.3); LYMPH % 44.3 % (20.0-40.0); MEAN CELL VOLUME 90.9 fL (81.0-99.0); MEAN CORPUSCULAR HEMOGLOBIN 31.1 pg (27.0-31.0); MEAN CORPUSCULAR HGB CONC 34.2 g/dL (33.0-37.0); MEAN PLATELET VOLUME 8.6 fL (7.2-11.7); MONO # 0.2 K/uL (0.0-0.8); MONO % 4.5 % (0.0-10.0); NEUT # 2.5 K/uL (1.8-7.0); RBC 3.86 Mil/uL (3.80-5.20); RED CELL DISTRIBUTION WIDTH 12.5 % (11.5-14.5); WHITE BLOOD COUNT 5.4 K/uL (4.8-10.8)
[2017-03-13 16:30] LABS: SQUAMOUS EPITHIAL 1 /hpf (0-5); URINE BILIRUBIN NEGATIVE (NEGATIVE); URINE BLOOD 2+ (NEGATIVE); URINE CLARITY Clear (Clear); URINE COLOR Yellow (YELLOW); URINE GLUCOSE (UA) NORMAL (Normal); URINE LEUKOCYTE ESTERASE NEG Leu/uL (Negative); URINE NITRATE NEGATIVE (NEGATIVE); URINE PROTEIN NEGATIVE (NEGATIVE)
[2017-03-13 16:31] LABS: HCG,QUALITATIVE URINE NEGATIVE (NEGATIVE)
[2017-03-13 16:33] LABS: ALBUMIN 3.5 g/dL (3.5-5.0)
[2017-03-13 16:36] LABS: ALB/GLOB RATIO 1.3 (1.0-2.1); AST/SGOT 19 U/L (14-36); BLOOD UREA NITROGEN 10 mg/dL (7-17); GFR AFRICAN-AMERICAN > 60; GFR NON-AFRICAN AMERICAN > 60
[2017-03-13 16:37] LABS: ALT/SGPT 22 U/L (9-52); CALCIUM 8.3 mg/dl (8.6-10.4); LIPASE 99 U/L (23-300)
--- NOTE | 2017-03-13 17:48 | C.PDOC ---
History Of Present Illness 32 y/o female presents to the ED for evaluation of a headache which has been persistent since yesterday. Patient states she suffers from headaches and current symptoms are similar to previous. Patient also complains of diffuse abdominal pain with several episodes of nausea and vomiting which began yesterday. Patient has history of chronic constipation and currently takes Linzess. She denies fever, chills, dysuria, hematuria, vaginal bleeding/ discharge. GI: Dr. Astudillo Time Seen by Provider: 03/13/17 14:43 Chief Complaint (Nursing): Headache History Per: Patient History/Exam Limitations: no limitations Onset/Duration Of Symptoms: Hrs Current Symptoms Are (Timing): Still Present Quality: Aching, "Pain" Preceeding Symptoms: None Associated Symptoms: Nausea, Vomiting Additional History Per: Patient Past Medical History Reviewed: Historical Data, Nursing Documentation, Vital Signs Vital Signs: Last Vital Signs Temp 98.7 F 03/13/17 19:20 Pulse 63 03/13/17 19:20 Resp 18 03/13/17 19:20 BP 106/87 03/13/17 19:20 Pulse Ox 100 03/13/17 19:20 - Medical History PMH: Hypothyroidism, Migraine Surgical History: Endoscopy - [facility] Procedures IRRIGATION OF LOWER GI USING IRRIGATING SUBSTANCE, ENDO (09/05/16) Family History: States: No Known Family Hx - Social History Hx Tobacco Use: No Hx Alcohol Use: No Hx Substance Use: No - Immunization History Hx Tetanus Toxoid Vaccination: Yes Hx Influenza Vaccination: Yes Hx Pneumococcal Vaccination: No Review Of Systems Except As Marked, All Systems Reviewed And Found Negative. Constitutional: Negative for: Fever, Chills Cardiovascular: Negative for: Chest Pain, Palpitations Respiratory: Negative for: Shortness of Breath Gastrointestinal: Positive for: Nausea, Vomiting, Abdominal Pain. Negative for : Diarrhea Genitourinary: Negative for: Dysuria, Hematuria, Vaginal Discharge, Vaginal Bleeding Neurological: Positive for: Headache Physical Exam - Physical Exam Appears: Well, Non-toxic, Other (+mildly uncomfortable ) Skin: Normal Color, Warm, Dry Head: Atraumatic, Normacephalic Eye(s): bilateral: Normal Inspection, PERRL, EOMI Oral Mucosa: Moist Neck: Supple Cardiovascular: Rhythm Regular Respiratory: Normal Breath Sounds, No Rales, No Rhonchi, No Wheezing Gastrointestinal/Abdominal: Bowel Sounds, Soft, Tenderness (suprapubic, right and left lower quadrants mild TTP), No Guarding, No Rebound Back: Normal Inspection, No CVA Tenderness Extremity: Normal ROM Neurological/Psych: Oriented x3, Normal Speech, Normal Cognition, Normal Cranial Nerves Gait: Steady ED Course And Treatment - Laboratory Results Result Diagrams: 03/13/17 16:14 03/13/17 16:14 ECG: Interpreted By Me, Viewed By Me (sinus bradycardia 44bpm, normal axis, no acute ST/T wave changes) ECG Interpretation: Abnormal O2 Sat by Pulse Oximetry: 100 (on RA) Pulse Ox Interpretation: Normal Progress Note: Blood work, UA, Upreg ordered and reviewed. Patient given IV NS bolus, PO tylenol, IV toradol and IV zofran. Patient became bradycardic after IV Zofran PO, EKG ordered - sinus bradycardia. Reevaluation Time: 19:00 Reassessment Condition: Improved (On reassessment, patient is resting comfortably and states she is feeling much better. Headache and abdominal pain has resolved, and heart rate currently 80-90s. On exam, abdomen is soft and nontender. Patient is comfortable being discharged home, was given Rx for Fiorecet. patient instructed to follow up with PMD/clinic in 1-2 days, and with GI within 1 week. She understands she should return to ED if symptoms worsen.) Disposition Counseled Patient/Family Regarding: Studies Performed, Diagnosis, Need For Followup, Rx Given - Disposition Referrals: Ajay Astudillo MD [Staff Provider] - [facility] [Outside] Disposition: HOME/ ROUTINE Disposition Time: 19:00 Condition: STABLE Additional Instructions: SEGUIMIENTO CON PLASCENCIA GIASTROENTERLOGO DENTRO DE 1 SEMANA USE EL MEDICAMENTO QUE SE NECESITA PARA EL DOLOR BEBER MUCHO LQUIDO DEVUELVA A LA ZACK DE EMERGENCIA SI LOS SNTOMAS EMPEORARAN Prescriptions: Acetaminophen/Butalbital/Caf [Fioricet] 1 tab PO TID PRN #20 tab PRN Reason: Headache Instructions: Acute Headache (ED) Print Language: TRINIDADIAN - POA Present On Arrival: None - Clinical Impression Clinical Impression: Headache, Constipation by delayed colonic transit - Scribe Statement The provider has reviewed the documentation as recorded by the Scribe (Rica Blackwell) Provider Attestation: All medical record entries made by the Scribe were at my direction and personally dictated by me. I have reviewed the chart and agree that the record accurately reflects my personal performance of the history, physical exam, medical decision making, and the department course for this patient. I have also personally directed, reviewed, and agree with the discharge instructions and disposition.
[2017-03-13] MEDS ORDERED: Apap-Butalbital-Caffeine 325-50-40mg Tab PO STA (17:57)
[2017-03-13] MEDS ORDERED: Apap-Butalbital-Caffeine 325-50-40mg Tab ONE (18:22)
[2017-03-13 18:29] VITALS: RESP 18
[2017-03-13 19:42] VITALS: BP 106/87; PULSE 63; TEMP 98.7
--- NOTE | 2017-03-18 19:23 | CARD ---
APPROVED REPORT EKG Measurement Heart [id number] 114P16 [id number] <Conclusion> Marked sinus bradycardia Abnormal ECG
== END 2017-03-13 19:25 | disposition home or self-care (01) ==
LOC: C.ER 13:24
DX: R51 Headache (principal); K59.01 Slow transit constipation
CPT/HCPCS: 80053; 81001; 83690; 84443; 84703; 85025; 96361; 96374; 96375; 99285; J1885; J2405; J7040

== ENCOUNTER 2017-04-06 11:35 | Emergency (ER) | payer SELFPAY ==
[2017-04-06 11:36] VITALS: BMI 26.4
[2017-04-06 12:06] VITALS: TEMP 97.7
[2017-04-06] MEDS ORDERED: Sodium Chloride 0.9% 1,000 ML IV ONE (12:48)
[2017-04-06] MEDS ORDERED: DiphenhydrAMINE 50 mg/ml Inj IVP STA (12:48)
--- NOTE | 2017-04-06 12:55 | C.PDOC ---
History Of Present Illness 32 y/o female, history of chronic constipation and hypothyroidism, presents to emergency department with complaint of abdominal pain worsening over last 2 days. Patient reports pain is worse in the epigastric region. Also reports associated vomiting and mild headache. Otherwise, denies fever, chills, urinary symptoms, diarrhea, or other complaints. Time Seen by Provider: 04/06/17 12:47 Chief Complaint (Nursing): GI Problem History Per: Patient History/Exam Limitations: no limitations Onset/Duration Of Symptoms: Days Current Symptoms Are (Timing): Still Present Location Of Pain/Discomfort: Epigastric Associated Symptoms: Vomiting. denies: Fever, Chills, Diarrhea, Chest Pain, Urinary Symptoms Recent travel outside of the [place]: No Abnormal Vaginal Bleeding: No Past Medical History Reviewed: Historical Data, Nursing Documentation, Vital Signs Vital Signs: Last Vital Signs Temp 97.7 F 04/06/17 15:06 Pulse 59 L 04/06/17 16:29 Resp 18 04/06/17 16:29 BP 90/50 L 04/06/17 16:29 Pulse Ox 98 04/06/17 16:29 - Medical History PMH: Hypothyroidism, Migraine Surgical History: Endoscopy - [facility] Procedures IRRIGATION OF LOWER GI USING IRRIGATING SUBSTANCE, ENDO (09/05/16) Family History: States: Unknown Family Hx - Social History Hx Tobacco Use: No Hx Alcohol Use: No Hx Substance Use: No - Immunization History Hx Tetanus Toxoid Vaccination: Yes Hx Influenza Vaccination: Yes Hx Pneumococcal Vaccination: No Review Of Systems Except As Marked, All Systems Reviewed And Found Negative. Constitutional: Negative for: Fever, Chills Cardiovascular: Negative for: Chest Pain, Palpitations Respiratory: Negative for: Cough, Shortness of Breath, Wheezing Gastrointestinal: Positive for: Vomiting, Abdominal Pain Skin: Negative for: Rash Neurological: Positive for: Headache. Negative for: Weakness, Numbness, Dizziness Physical Exam - Physical Exam Appears: Non-toxic, No Acute Distress Skin: Normal Color, Warm, Dry Head: Atraumatic, Normacephalic Oral Mucosa: Moist Chest: Symmetrical Cardiovascular: Rhythm Regular Respiratory: Normal Breath Sounds, No Rales, No Rhonchi, No Wheezing Gastrointestinal/Abdominal: Soft, Tenderness (mild, epigastric), No Distention, No Guarding, No Rebound Back: Normal Inspection, No CVA Tenderness Extremity: Normal ROM, Capillary Refill (< 2 sec. ) Neurological/Psych: Oriented x3, Normal Speech, Normal Cognition ED Course And Treatment - Laboratory Results Result Diagrams: 04/06/17 13:10 04/06/17 13:10 O2 Sat by Pulse Oximetry: 100 (RA) Pulse Ox Interpretation: Normal Medical Decision Making Medical Decision Making: suspect gastritis, benign guthrie- labs imaging pending Plan: * Labs * Benadryl * Reglan * Protonix * IVFs * Reassess Prior Visits: Notes and results from previous visits were reviewed Progress Notes: 415: labs neg. pt reassessed. initialy felt well to go home, however upon d/c pt noted to be bradycardic to 40s ekg shows sinus bradcardia 44. noted previous visit, with similar episode of bradycardia. no atriopine pacing needed. pt had multiple runs of bradycardia. recommended admission. pt declines, hr now normalized. spoke to pt with tranlator bedside. signs AMA. The patient declines admission, and wishes to leave the Emergency Department. This action is against my medical advice to the patient and the decision was made with informed refusal. The patient was told that admission is necessary and a full explanation of the rationale was given. The risks of leaving were explained to the patient and include, but are not limited to, worsening of known or currently unknown conditions, permanent disability and from undiagnosed or untreated conditions The patient has the capacity to make this informed decision and understands the clinical situation and my explanation of the risks of leaving. The patient voluntarily accepts these risks, and a signed AMA form documenting our conversation was obtained. The patient was given the opportunity to ask questions and reconsider. The patient was encouraged to return to the Emergency Department at any time for further care. Disposition - Disposition Referrals: [facility] [Outside] [facility] [Outside] Kedar Cummings MD [Staff Provider] - Gage Acuña MD [Staff Provider] - Disposition: AGAINST MEDICAL ADVICE Disposition Time: 16:15 Condition: UNKNOWN Additional Instructions: follow up with your doctor/specialist. return to er with worsening symptoms or concerns. Instructions: Acute Headache (ED), Acute Abdominal Pain (ED), Bradycardia (ED) Forms: [employer] (Ku[place]i) - Clinical Impression Clinical Impression: Abdominal pain, Headache - Scribe Statement The provider has reviewed the documentation as recorded by the Misaibwilla Alicia All medical record entries made by the Scribe were at my direction and personally dictated by me. I have reviewed the chart and agree that the record accurately reflects my personal performance of the history, physical exam, medical decision making, and the department course for this patient. I have also personally directed, reviewed, and agree with the discharge instructions and disposition.
[2017-04-06 13:27] LABS: BASO % 0.4 % (0.0-2.0); EOS # 0.2 K/uL (0.0-0.7); EOS % 2.9 % (0.0-4.0); HEMATOCRIT 34.6 % (34.0-47.0); LYMPH # 2.2 K/uL (1.0-4.3); LYMPH % 41.2 % (20.0-40.0); MEAN CORPUSCULAR HEMOGLOBIN 31.5 pg (27.0-31.0); MEAN CORPUSCULAR HGB CONC 33.8 g/dL (33.0-37.0); MEAN PLATELET VOLUME 9.1 fL (7.2-11.7); MONO # 0.3 K/uL (0.0-0.8); MONO % 4.7 % (0.0-10.0); NRBC % 0.2 % (0.0-2.0); WHITE BLOOD COUNT 5.3 K/uL (4.8-10.8)
[2017-04-06] MEDS ORDERED: DiphenhydrAMINE 50 mg/ml Inj ONE (13:30)
[2017-04-06 13:31] LABS: MEAN CELL VOLUME 93.2 fL (81.0-99.0)
[2017-04-06] MEDS ORDERED: Sodium Chloride 0.9% 1,000 ML ONE (13:31)
[2017-04-06 13:43] LABS: CHLORIDE 103 mmol/L (98-107); POTASSIUM 4.1 mmol/L (3.6-5.2); SODIUM 140 mmol/L (132-148)
[2017-04-06 13:44] LABS: RBC URINE 1 /hpf (0-3); URINE BILIRUBIN NEGATIVE (NEGATIVE); URINE BLOOD NEGATIVE (NEGATIVE); URINE COLOR Yellow (YELLOW); URINE GLUCOSE (UA) NORMAL (Normal); URINE KETONE TRACE mg/dL (NEGATIVE); URINE LEUKOCYTE ESTERASE NEG Leu/uL (Negative); URINE PROTEIN NEGATIVE (NEGATIVE); WBC URINE 1 /hpf (0-5)
[2017-04-06 13:45] LABS: ALB/GLOB RATIO 1.2 (1.0-2.1); ALKALINE PHOSPHATASE 45 U/L (38-126); AST/SGOT 20 U/L (14-36); BILIRUBIN,TOTAL 0.4 mg/dL (0.2-1.3); CARBON DIOXIDE 22 mmol/L (22-30); GFR AFRICAN-AMERICAN > 60; TOTAL PROTEIN 6.9 g/dL (6.3-8.3)
[2017-04-06 13:46] LABS: ALT/SGPT 18 U/L (9-52); BLOOD UREA NITROGEN 17 mg/dL (7-17); CALCIUM 8.1 mg/dl (8.6-10.4); GLUCOSE,RANDOM 79 mg/dL (65-105)
[2017-04-06 16:08] LABS: THYROID STIMULATING HORMONE 0.51 mIU/L (0.46-4.68)
[2017-04-06 16:30] VITALS: BP 90/50; PULSE 59; RESP 18
[2017-04-07 07:58] VITALS: O2SAT 100
--- NOTE | 2017-04-17 09:18 | CARD ---
APPROVED REPORT EKG Measurement Heart [id number] [place] 130P45 [id number] <Conclusion> Marked sinus bradycardia Abnormal ECG
== END 2017-04-06 16:40 | disposition left against medical advice (07) ==
LOC: C.ER 11:35
DX: R10.13 Epigastric pain (principal); R51 Headache; R00.1 Bradycardia, unspecified
CPT/HCPCS: 80053; 81001; 83690; 84443; 84484; 84703; 85025; 85610; 85730; 96361; 96374; 96375; 99284; C9113; J1200; J1885; J2765; J7040

== ENCOUNTER 2017-04-08 19:56 | Emergency (ER) | payer SELFPAY ==
[2017-04-08 19:56] VITALS: BMI 26.4
[2017-04-08 20:11] VITALS: O2SAT 98
[2017-04-08] MEDS ORDERED: Sodium Chloride 0.9% 1,000 ML IV ONE (21:09)
[2017-04-08] MEDS ORDERED: DiphenhydrAMINE 50 mg/ml Inj IVP STA (21:10)
--- NOTE | 2017-04-08 21:36 | C.PDOC ---
History Of Present Illness 32 year old female who presents to the ER with a complaint of a headache for the past 2 days, associated with vomiting for the past 6 days. Patient states she has a Hx of similar symptoms, however, today they are worse. Patient was seen in the ER on 04/06/17 for abdominal pain, she had blood work done and was found to be bradycardic; patient was recommended admission, however, she refused and left AMA. Denies fever or chills. Time Seen by Provider: 04/08/17 20:26 Chief Complaint (Nursing): Headache History Per: Patient History/Exam Limitations: no limitations Onset/Duration Of Symptoms: Days Current Symptoms Are (Timing): Still Present Preceeding Symptoms: None Associated Symptoms: Vomiting Recent travel outside of the [place]: No Past Medical History Reviewed: Historical Data, Nursing Documentation, Vital Signs Vital Signs: Last Vital Signs Temp 98.0 F 04/08/17 23:51 Pulse 61 04/08/17 23:51 Resp 18 04/08/17 23:51 BP 94/60 L 04/08/17 23:51 Pulse Ox 98 04/08/17 23:51 - Medical History PMH: Migraine Surgical History: Endoscopy - [facility] Procedures IRRIGATION OF LOWER GI USING IRRIGATING SUBSTANCE, ENDO (09/05/16) Family History: States: Unknown Family Hx - Social History Hx Tobacco Use: No Hx Alcohol Use: No Hx Substance Use: No - Immunization History Hx Tetanus Toxoid Vaccination: No Hx Influenza Vaccination: No Hx Pneumococcal Vaccination: No Review Of Systems Constitutional: Negative for: Fever, Chills Gastrointestinal: Positive for: Vomiting. Negative for: Abdominal Pain Neurological: Positive for: Headache. Negative for: Dizziness Physical Exam - Physical Exam Appears: Non-toxic, Other (Uncomfortable. Mild painful distress.) Skin: Normal Color, Warm, Dry Head: Atraumatic, Normacephalic Eye(s): bilateral: Normal Inspection, PERRL, EOMI Oral Mucosa: Moist Neck: Normal, Supple Chest: Symmetrical, No Tenderness Cardiovascular: Rhythm Regular, No Murmur Respiratory: Normal Breath Sounds, No Rales, No Rhonchi, No Wheezing Gastrointestinal/Abdominal: Soft, No Tenderness Neurological/Psych: Oriented x3, Normal Speech, Normal Cognition ED Course And Treatment - Laboratory Results Result Diagrams: 04/08/17 21:52 04/08/17 21:52 O2 Sat by Pulse Oximetry: 98 - CT Scan/US CT Head Other Rad Studies (CT/US): Read By Radiologist, Radiology Report Reviewed CT/US Interpretation: IMPRESSION: No acute intracranial hemorrhage, or suspicious mass effect. Medical Decision Making Medical Decision Making: Plan: * CT Head * Blood work * CXR * Benadryl * Reglan * IV fluids On re-exam, the patient is active and alert. Patient reports improvement of symptoms. Abdomen is soft, non-tender and tolerating Po well. Lungs are CTA, heart is RRR, Follow up with the medical doctor within 1-2 days. Return if worsened, Disposition - Disposition Referrals: [facility] at [facility] [Outside] Disposition: HOME/ ROUTINE Disposition Time: 23:34 Condition: GOOD Additional Instructions: Follow up with the medical doctor within 1-2 days. Return if worsened. Prescriptions: Acetaminophen/Butalbital/Caf [Fioricet] 1 tab PO TID PRN #20 tab PRN Reason: Headache Naproxen [Naprosyn] 1 tab PO BID PRN #25 tab PRN Reason: Pain Instructions: Acute Headache (ED) Forms: [employer] (Serbian) Print Language: SRI LANKAN - Clinical Impression Clinical Impression: Headache - Scribe Statement The provider has reviewed the documentation as recorded by the Scribwilla Oliveira All medical record entries made by the Misaibwilla were at my direction and personally dictated by me. I have reviewed the chart and agree that the record accurately reflects my personal performance of the history, physical exam, medical decision making, and the department course for this patient. I have also personally directed, reviewed, and agree with the discharge instructions and disposition.
[2017-04-08 21:46] LABS: RBC URINE 4 /hpf (0-3); TRANSITIONAL EPITHIAL < 1 /hpf (0-3); URINE BACTERIA RARE (<OCC); URINE BILIRUBIN NEGATIVE (NEGATIVE); URINE BLOOD 1+ (NEGATIVE); URINE COLOR Yellow (YELLOW); URINE GLUCOSE (UA) NORMAL (Normal); URINE KETONE TRACE mg/dL (NEGATIVE); URINE LEUKOCYTE ESTERASE NEG Leu/uL (Negative); URINE PROTEIN NEGATIVE (NEGATIVE); WBC URINE 1 /hpf (0-5)
[2017-04-08] MEDS ORDERED: DiphenhydrAMINE 50 mg/ml Inj ONE ×2 (21:51→21:52)
[2017-04-08] MEDS ORDERED: Sodium Chloride 0.9% 1,000 ML ONE (21:51)
[2017-04-08 21:56] LABS: BASO # 0.1 K/uL (0.0-0.2); BASO % 0.8 % (0.0-2.0); EOS # 0.2 K/uL (0.0-0.7); HEMATOCRIT 35.4 % (34.0-47.0); LYMPH # 2.9 K/uL (1.0-4.3); LYMPH % 41.5 % (20.0-40.0); MEAN CELL VOLUME 91.7 fL (81.0-99.0); MEAN CORPUSCULAR HEMOGLOBIN 31.4 pg (27.0-31.0); MEAN CORPUSCULAR HGB CONC 34.3 g/dL (33.0-37.0); MEAN PLATELET VOLUME 8.2 fL (7.2-11.7); MONO # 0.5 K/uL (0.0-0.8); MONO % 6.8 % (0.0-10.0); NRBC % 0.1 % (0.0-2.0); RED CELL DISTRIBUTION WIDTH 13.3 % (11.5-14.5); WHITE BLOOD COUNT 6.9 K/uL (4.8-10.8)
[2017-04-08 22:06] LABS: CHLORIDE 102 mmol/L (98-107); POTASSIUM 3.4 mmol/L (3.6-5.2); SODIUM 138 mmol/L (132-148)
[2017-04-08 22:08] LABS: GFR AFRICAN-AMERICAN > 60
[2017-04-08 22:09] LABS: ALB/GLOB RATIO 1.3 (1.0-2.1); ALKALINE PHOSPHATASE 40 U/L (38-126); ALT/SGPT 21 U/L (9-52); AST/SGOT 14 U/L (14-36); BILIRUBIN,TOTAL 0.6 mg/dL (0.2-1.3); BLOOD UREA NITROGEN 14 mg/dL (7-17); CALCIUM 7.7 mg/dl (8.6-10.4); CARBON DIOXIDE 24 mmol/L (22-30); GLUCOSE,RANDOM 74 mg/dL (65-105); TOTAL PROTEIN 6.6 g/dL (6.3-8.3)
--- NOTE | 2017-04-08 22:20 | CT ---
EXAM: CT Head Without Intravenous Contrast CLINICAL HISTORY: 32 years old, female; Pain; Headache; Headache not specified; Additional info: Headache, vomiting TECHNIQUE: Axial computed tomography images of the head/brain without intravenous contrast. This CT exam was performed using one or more of the following dose reduction techniques: automated exposure control, adjustment of the mA and/or kV according to patient size, and/or use of iterative reconstruction technique. Coronal and sagittal reformatted images were created and reviewed. COMPARISON: No relevant prior studies available. FINDINGS: Brain: No acute intracranial hemorrhage. No significant white matter disease. No edema. Ventricles: No significant ventriculomegaly. Bones: No acute displaced fracture. Sinuses: Unremarkable as visualized. No acute sinusitis. Mastoid air cells: Unremarkable as visualized. No mastoid effusion. IMPRESSION: No acute intracranial hemorrhage, or suspicious mass effect.
[2017-04-08 23:52] VITALS: BP 94/60; PULSE 61; RESP 18; TEMP 98
--- NOTE | 2017-04-09 10:46 | RAD ---
PROCEDURE: CHEST RADIOGRAPH, 1 VIEW HISTORY: Vomiting COMPARISON: 09/07/2016. FINDINGS: LUNGS: The lungs are well inflated and clear. PLEURA: No pneumothorax or pleural fluid seen. CARDIOVASCULAR: Normal. OSSEOUS STRUCTURES: No significant abnormalities. VISUALIZED UPPER ABDOMEN: Normal. OTHER FINDINGS: None. IMPRESSION: No active pulmonary disease.
== END 2017-04-08 23:55 | disposition home or self-care (01) ==
LOC: C.ER 19:56
DX: R51 Headache (principal)
CPT/HCPCS: 70450; 71010; 80053; 81001; 82550; 83690; 83735; 84703; 85025; 96361; 96374; 96375; 99284; J1200; J2765; J7040

== ENCOUNTER 2017-05-17 06:58 | Inpatient (IN) | payer SELFPAY ==
[2017-05-08 07:53] VITALS: BMI 27.3
[2017-05-17] MEDS ORDERED: Propofol 10 mg/ml Inj (20 ML) ONE (07:54)
[2017-05-17] MEDS ORDERED: Midazolam 2 MG/2 ML VIAL ONE (07:54)
[2017-05-17] MEDS ORDERED: Rocuronium 10 mg/ml (5 ml) ONE (07:56)
[2017-05-17] MEDS ORDERED: Succinylcholine Chloride 20 mg/ml Syr (5 ml) IV ONE (07:56)
[2017-05-17] MEDS ORDERED: Phenylephrine 10 mg/ml Inj ONE (07:57)
[2017-05-17] MEDS ORDERED: Lactated Ringer's 1,000 ML IV ONE (08:16)
[2017-05-17] MEDS ORDERED: cefOXitin IV 2 gm in Dextrose 2 GM/50 ML BAG IVPB ONE (08:51)
[2017-05-17] MEDS ORDERED: Bupivacaine-Epi 0.25%-1:200,000 PF Inj ONE (08:51)
[2017-05-17] MEDS ORDERED: Lidocaine 1% Inj (20ml) ONE (08:51)
[2017-05-17] MEDS ORDERED: Lactated Ringer's 1,000 ML IV SCH (09:00)
[2017-05-17] MEDS ORDERED: metroNIDAZOLE IV 500 mg/100 ml 500 MG/100 ML BAG ONE (09:17)
[2017-05-17] MEDS ORDERED: Morphine 4 MG/ML VIAL ONE (10:25)
[2017-05-17] MEDS ORDERED: BUPIVACAINE 0.125%/0.9% NACL 600 ML IJ ONE (12:46)
[2017-05-17] MEDS: Bupivacaine HCl 0.5% PF (10 ml) Inj ONE ×4 (13:09→14:00)
[2017-05-17] MEDS ORDERED: Sodium Chloride 0.9% 1,000 ML IV SCH (13:30)
--- NOTE | 2017-05-17 13:35 | PCM.SURG1 ---
Surgeon's Initial Post Op Note - Surgeon's Notes Surgeon: Dr Robins Cone Sewer: Erin Kwon PGY3 Type of Anesthesia: General Endo Pre-Operative Diagnosis: chronic constipation Operative Findings: redundant sigmoid Post-Operative Diagnosis: as above Operation Performed: Laparoscopic sigmoid and superior rectal resection. Splenic flexure mobilization. On-Q catheter placement Specimen/Specimens Removed: sigmoid colon w/ superior rectum Estimated Blood Loss: EBL {In ML}: 100 Blood Products Given: N/A Drains Used: Alvin (w/ On Q) Post-Op Condition: Good Date of Surgery/Procedure: 05/17/17 Time of Surgery/Procedure: 13:34
[2017-05-17] MEDS ORDERED: metroNIDAZOLE IV 500 mg/100 ml 500 MG/100 ML BAG IVPB SCH (14:00)
[2017-05-17] MEDS: Piperacill/Tazo 3.375gm in Dex 3.375 GM/50 ML BAG IVPB SCH ×2 (14:00→19:34)
[2017-05-17] MEDS ORDERED: Sodium Chloride 0.9% 1,000 ML IV ONE (15:41)
[2017-05-17] MEDS: metroNIDAZOLE IV 500 mg/100 ml 500 MG/100 ML BAG IVPB SCH ×2 (17:00→23:25)
[2017-05-18] MEDS: Piperacill/Tazo 3.375gm in Dex 3.375 GM/50 ML BAG IVPB SCH ×4 (01:27→19:10)
[2017-05-18] MEDS: metroNIDAZOLE IV 500 mg/100 ml 500 MG/100 ML BAG IVPB SCH ×3 (06:04→22:00)
--- NOTE | 2017-05-18 07:17 | CP.PCM.PN ---
<Chaitanya Khan Jak - Last Filed: 05/18/17 07:15> Subjective - Date & Time of Evaluation Date of Evaluation: 05/18/17 Time of Evaluation: 07:15 - Subjective Subjective: Sx: Dr Robins Pt S&E. POD#1 s/p laparoscopic sigmoidectomy. Pt with siginificant amount of pain post-op but was refusing Toradol. Pt counseled on need for pain control and agrees to take it now. OTherwise doing well. Tolerating clears. Denies N/ V, F/C. Not yet OOB. Using incentive spirometer. Making adequate urine. Objective - Vital Signs/Intake and Output Vital Signs (last 24 hours): Temp Pulse Resp BP Pulse Ox 99.3 F 87 20 101/65 96 05/18/17 04:25 05/18/17 06:45 05/18/17 04:25 05/18/17 06:45 05/18/17 04:25 Intake and Output: 05/18/17 05/18/17 06:59 18:59 Intake Total 1500 Output Total 2060 Balance -560 - Medications Medications: Current Medications Lactated Ringer's (Lactated Ringer's) 1,000 mls @ 150 mls/hr IV .Q6H40M [facility] BUPIVACAINE 0.125%/0.9% NACL (Bupivacaine-Ns 0.125% On-Q Pig Farm Manager) 600 mls @ 7 mls/ hr IJ ONCE ONE Stop: 05/21/17 02:28 Sodium Chloride (Sodium Chloride 0.9%) 1,000 mls @ 100 mls/hr IV .Q10H [facility] Last Admin: 05/18/17 01:27 Dose: 100 mls/hr Piperacillin Sod/Tazobactam Sod (Zosyn 3.375 Gm Iv Premix) 3.375 gm in 50 mls @ 100 mls/hr IVPB Q6H [facility] Last Admin: 05/18/17 01:27 Dose: 100 mls/hr Metronidazole (Flagyl) 500 mg in 100 mls @ 100 mls/hr IVPB Q8H [facility] Last Admin: 05/18/17 06:04 Dose: 100 mls/hr Ketorolac Tromethamine (Toradol) 30 mg IV Q6H PRN PRN Reason: Pain, moderate (4-7) Last Admin: 05/18/17 06:50 Dose: 30 mg Ondansetron HCl (Zofran Inj) 4 mg IVP Q6H PRN PRN Reason: Nausea/Vomiting - Constitutional Appears: Non-toxic, No Acute Distress - Head Exam Head Exam: NORMAL INSPECTION - Respiratory Exam Respiratory Exam: absent: Accessory Muscle Use, Respiratory Distress - Cardiovascular Exam Cardiovascular Exam: REGULAR RHYTHM - GI/Abdominal Exam GI & Abdominal Exam: Distended, Soft, Tenderness (post-op and appropriate). absent: Firm, Guarding, Rigid Additional comments: midline incision with minimal saturation marcia 20cc serosanguinous - Extremities Exam Extremities Exam: absent: Pedal Edema - Neurological Exam Neurological Exam: Alert, Awake, Oriented x3 - Psychiatric Exam Psychiatric exam: Normal Affect, Normal Mood Assessment and Plan - Assessment and Plan (Free Text) Assessment: 32F POD#1 s/p laparoscopic sigmoid resection Plan: maintain CLD until passes flatus Toradol for pain D/C unger will start dvt prophylaxis dw Dr Shimon Khan, PGY3 <Landon Robins B - Last Filed: 05/21/17 21:08> Objective - Vital Signs/Intake and Output Vital Signs (last 24 hours): Temp Pulse Resp BP Pulse Ox 98.2 F 61 20 112/69 97 05/21/17 16:57 05/21/17 16:57 05/21/17 16:57 05/21/17 16:57 05/21/17 16:57 - Medications Medications: Current Medications Docusate Sodium (Colace) 100 mg PO BID [facility] Last Admin: 05/21/17 17:28 Dose: 100 mg Enoxaparin Sodium (Lovenox) 30 mg SC DAILY [facility] Last Admin: 05/21/17 09:26 Dose: 30 mg Piperacillin Sod/Tazobactam Sod (Zosyn 3.375 Gm Iv Premix) 3.375 gm in 50 mls @ 100 mls/hr IVPB Q6H [facility] Last Admin: 05/21/17 20:12 Dose: 100 mls/hr Metronidazole (Flagyl) 500 mg in 100 mls @ 100 mls/hr IVPB Q8H [facility] Last Admin: 05/21/17 14:16 Dose: 100 mls/hr Potassium Chloride/Dextrose/Sod Cl (Potassium Chl 40 Meq In D5-1/2ns) 1,000 mls @ 100 mls/hr IV .Q10H [facility] Last Admin: 05/21/17 17:28 Dose: 100 mls/hr BUPIVACAINE 0.125%/0.9% NACL (Bupivacaine-Ns 0.125% On-Q Pig Farm Manager) 600 mls @ 4 mls/ hr IJ ONCE ONE Stop: 05/27/17 15:59 Last Admin: 05/21/17 10:00 Dose: 4 mls/hr Ketorolac Tromethamine (Toradol) 30 mg IVP Q6 PRN PRN Reason: pain 4-8 Last Admin: 05/20/17 19:44 Dose: 30 mg Ondansetron HCl (Zofran Inj) 4 mg IVP Q6H PRN PRN Reason: Nausea/Vomiting Last Admin: 05/21/17 17:38 Dose: 4 mg - Labs Labs: 05/21/17 08:10 05/21/17 19:19 Attending/Attestation - Attestation I have personally seen and examined this patient.: Yes I have fully participated in the care of the patient.: Yes I have reviewed all pertinent clinical information, including history, physical exam and plan: Yes Notes (Text): 05/21/17 21:07 Pt was seen and examined at bedside Agree with above note and assessment OOB to walk Clear liquid diet DVT prophylaxis Repeat Labs in am
[2017-05-18 07:24] LABS: BASO % 0.2 % (0.0-2.0); EOS % 0.1 % (0.0-4.0); HEMATOCRIT 31.5 % (34.0-47.0); LYMPH # 1.1 K/uL (1.0-4.3); LYMPH % 9.7 % (20.0-40.0); MEAN CORPUSCULAR HEMOGLOBIN 31.8 pg (27.0-31.0); MEAN CORPUSCULAR HGB CONC 34.2 g/dL (33.0-37.0); MEAN PLATELET VOLUME 8.9 fL (7.2-11.7); MONO # 0.5 K/uL (0.0-0.8); MONO % 4.3 % (0.0-10.0); NRBC % 0.1 % (0.0-2.0); PLATELET COUNT 197 K/uL (130-400); RED CELL DISTRIBUTION WIDTH 13.1 % (11.5-14.5); WHITE BLOOD COUNT 10.8 K/uL (4.8-10.8)
[2017-05-18] MEDS: Sodium Chloride 0.9% 1,000 ML IV SCH (08:16)
[2017-05-18 08:21] LABS: CHLORIDE 104 mmol/L (98-107); SODIUM 134 mmol/L (132-148)
[2017-05-18 08:22] LABS: POTASSIUM 3.8 mmol/L (3.6-5.2)
[2017-05-18 08:24] LABS: ALB/GLOB RATIO 1.1 (1.0-2.1); ALKALINE PHOSPHATASE 30 U/L (38-126); AST/SGOT 33 U/L (14-36); BILIRUBIN,TOTAL 1.1 mg/dL (0.2-1.3); BLOOD UREA NITROGEN 7 mg/dL (7-17); CARBON DIOXIDE 23 mmol/L (22-30); GFR AFRICAN-AMERICAN > 60; GLUCOSE,RANDOM 79 mg/dL (65-105); TOTAL PROTEIN 5.4 g/dL (6.3-8.3)
[2017-05-18 08:25] LABS: ALT/SGPT 34 U/L (9-52); CALCIUM 7.5 mg/dl (8.6-10.4)
[2017-05-18 09:02] LABS: MYELOCYTE 1 % (0-0); NEUTROPHIL 73 % (50-75); TOTAL CELLS COUNTED 100
[2017-05-18] MEDS: Enoxaparin 30 mg Syringe SC SCH (10:48)
[2017-05-19] MEDS: Sodium Chloride 0.9% 1,000 ML IV SCH ×4 (00:39→21:40)
[2017-05-19] MEDS: Piperacill/Tazo 3.375gm in Dex 3.375 GM/50 ML BAG IVPB SCH ×4 (01:06→18:44)
[2017-05-19] MEDS ORDERED: Lactated Ringer's 1,000 ML IV ONE (06:47)
[2017-05-19] MEDS: metroNIDAZOLE IV 500 mg/100 ml 500 MG/100 ML BAG IVPB SCH ×3 (06:57→22:48)
--- NOTE | 2017-05-19 08:04 | CP.PCM.PN ---
<Chaitanya Khan Jak - Last Filed: 05/19/17 08:08> Subjective - Date & Time of Evaluation Date of Evaluation: 05/19/17 Time of Evaluation: 08:04 - Subjective Subjective: Gen Sx: Dr Robins Pt S&E. Overnight pt had episodes of chest pain. EKG done showing PVCs and pt with mild hypotension. Otherwise pain well controlled. Minimal PO intake. Bolused 1L LR and fluid rate increased. Objective - Vital Signs/Intake and Output Vital Signs (last 24 hours): Temp Pulse Resp BP Pulse Ox 98.3 F 68 18 90/58 L 97 05/19/17 04:35 05/19/17 06:00 05/19/17 06:00 05/19/17 06:00 05/19/17 04:35 Intake and Output: 05/19/17 05/19/17 06:59 18:59 Intake Total 780 Output Total 90 Balance 690 - Medications Medications: Current Medications Enoxaparin Sodium (Lovenox) 30 mg SC DAILY [facility] Last Admin: 05/18/17 10:48 Dose: 30 mg Piperacillin Sod/Tazobactam Sod (Zosyn 3.375 Gm Iv Premix) 3.375 gm in 50 mls @ 100 mls/hr IVPB Q6H [facility] Last Admin: 05/19/17 06:59 Dose: 100 mls/hr Metronidazole (Flagyl) 500 mg in 100 mls @ 100 mls/hr IVPB Q8H [facility] Last Admin: 05/19/17 06:57 Dose: 100 mls/hr Sodium Chloride (Sodium Chloride 0.9%) 1,000 mls @ 100 mls/hr IV .Q10H [facility] Last Admin: 05/19/17 02:24 Dose: 100 mls/hr BUPIVACAINE 0.125%/0.9% NACL (Bupivacaine-Ns 0.125% On-Q Adoption Specialist) 600 mls @ 7 mls/ hr IJ ONCE ONE Stop: 05/22/17 22:12 Ketorolac Tromethamine (Toradol) 30 mg IV Q6H PRN PRN Reason: Pain, moderate (4-7) Last Admin: 05/18/17 17:22 Dose: 30 mg Ondansetron HCl (Zofran Inj) 4 mg IVP Q6H PRN PRN Reason: Nausea/Vomiting - Labs Labs: 05/18/17 07:16 05/18/17 07:16 - Constitutional Appears: Non-toxic, No Acute Distress - ENT Exam ENT Exam: Mucous Membranes Dry - Respiratory Exam Respiratory Exam: absent: Accessory Muscle Use, Respiratory Distress - Cardiovascular Exam Cardiovascular Exam: REGULAR RHYTHM. absent: Tachycardia - GI/Abdominal Exam GI & Abdominal Exam: Soft, Tenderness (diffuse but appopriate post-op), Hypoactive Bowel Sounds. absent: Distended, Firm - Extremities Exam Extremities Exam: absent: Pedal Edema - Neurological Exam Neurological Exam: Alert, Awake, Oriented x3 Assessment and Plan - Assessment and Plan (Free Text) Assessment: 32F POD#2 s/p laparoscopic hemicolectomy Plan: Will refill OnQ inc fluid rate to 100 until tolerates more PO Bolus 1 L LR will start colace tomorrow at 1 pm d/w Dr Shimon Khan, PGY3 <Landon Robins - Last Filed: 05/21/17 21:09> Objective - Vital Signs/Intake and Output Vital Signs (last 24 hours): Temp Pulse Resp BP Pulse Ox 98.2 F 61 20 112/69 97 05/21/17 16:57 05/21/17 16:57 05/21/17 16:57 05/21/17 16:57 05/21/17 16:57 - Medications Medications: Current Medications Docusate Sodium (Colace) 100 mg PO BID [facility] Last Admin: 05/21/17 17:28 Dose: 100 mg Enoxaparin Sodium (Lovenox) 30 mg SC DAILY [facility] Last Admin: 05/21/17 09:26 Dose: 30 mg Piperacillin Sod/Tazobactam Sod (Zosyn 3.375 Gm Iv Premix) 3.375 gm in 50 mls @ 100 mls/hr IVPB Q6H [facility] Last Admin: 05/21/17 20:12 Dose: 100 mls/hr Metronidazole (Flagyl) 500 mg in 100 mls @ 100 mls/hr IVPB Q8H [facility] Last Admin: 05/21/17 14:16 Dose: 100 mls/hr Potassium Chloride/Dextrose/Sod Cl (Potassium Chl 40 Meq In D5-1/2ns) 1,000 mls @ 100 mls/hr IV .Q10H [facility] Last Admin: 05/21/17 17:28 Dose: 100 mls/hr BUPIVACAINE 0.125%/0.9% NACL (Bupivacaine-Ns 0.125% On-Q Adoption Specialist) 600 mls @ 4 mls/ hr IJ ONCE ONE Stop: 05/27/17 15:59 Last Admin: 05/21/17 10:00 Dose: 4 mls/hr Ketorolac Tromethamine (Toradol) 30 mg IVP Q6 PRN PRN Reason: pain 4-8 Last Admin: 05/20/17 19:44 Dose: 30 mg Ondansetron HCl (Zofran Inj) 4 mg IVP Q6H PRN PRN Reason: Nausea/Vomiting Last Admin: 05/21/17 17:38 Dose: 4 mg - Labs Labs: 05/21/17 08:10 05/21/17 19:19 Attending/Attestation - Attestation I have personally seen and examined this patient.: Yes I have fully participated in the care of the patient.: Yes I have reviewed all pertinent clinical information, including history, physical exam and plan: Yes Notes (Text): 05/21/17 21:08 Pt was seen and examined at bedside Agree with above note and assessment
[2017-05-19] MEDS ORDERED: BUPIVACAINE 0.125%/0.9% NACL 600 ML IJ ONE (08:30)
[2017-05-19] MEDS: Enoxaparin 30 mg Syringe SC SCH (09:13)
[2017-05-19 11:23] LABS: HEMATOCRIT 30.5 % (34.0-47.0); MEAN CELL VOLUME 94.3 fL (81.0-99.0); MEAN PLATELET VOLUME 8.6 fL (7.2-11.7); RED CELL DISTRIBUTION WIDTH 12.9 % (11.5-14.5); WHITE BLOOD COUNT 10.9 K/uL (4.8-10.8)
[2017-05-19 11:37] LABS: CHLORIDE 105 mmol/L (98-107); POTASSIUM 3.8 mmol/L (3.6-5.2); SODIUM 137 mmol/L (132-148)
[2017-05-19 11:39] LABS: AST/SGOT 45 U/L (14-36); BILIRUBIN,TOTAL 0.9 mg/dL (0.2-1.3); CARBON DIOXIDE 21 mmol/L (22-30); GFR AFRICAN-AMERICAN > 60
[2017-05-19 11:40] LABS: ALB/GLOB RATIO 1.1 (1.0-2.1); ALKALINE PHOSPHATASE 41 U/L (38-126); ALT/SGPT 36 U/L (9-52); BLOOD UREA NITROGEN 6 mg/dL (7-17); GLUCOSE,RANDOM 64 mg/dL (65-105); TOTAL PROTEIN 6.1 g/dL (6.3-8.3)
[2017-05-20] MEDS: Piperacill/Tazo 3.375gm in Dex 3.375 GM/50 ML BAG IVPB SCH ×4 (00:56→19:49)
[2017-05-20] MEDS: metroNIDAZOLE IV 500 mg/100 ml 500 MG/100 ML BAG IVPB SCH ×3 (06:11→22:04)
[2017-05-20 07:05] LABS: HEMATOCRIT 28.7 % (34.0-47.0); MEAN CELL VOLUME 93.8 fL (81.0-99.0); MEAN CORPUSCULAR HEMOGLOBIN 32.4 pg (27.0-31.0); MEAN CORPUSCULAR HGB CONC 34.6 g/dL (33.0-37.0); MEAN PLATELET VOLUME 9.2 fL (7.2-11.7); RED CELL DISTRIBUTION WIDTH 13.3 % (11.5-14.5); WHITE BLOOD COUNT 8.4 K/uL (4.8-10.8)
[2017-05-20] MEDS ORDERED: Lactated Ringer's 1,000 ML IV ONE ×2 (07:23→09:00)
[2017-05-20 07:31] LABS: ALB/GLOB RATIO 0.8 (1.0-2.1); ALKALINE PHOSPHATASE 35 U/L (38-126); ALT/SGPT 27 U/L (9-52); AST/SGOT 35 U/L (14-36); BILIRUBIN,TOTAL 0.5 mg/dL (0.2-1.3); BLOOD UREA NITROGEN 4 mg/dL (7-17); CALCIUM 7.8 mg/dl (8.6-10.4); CARBON DIOXIDE 23 mmol/L (22-30); CHLORIDE 105 mmol/L (98-107); GFR AFRICAN-AMERICAN > 60; GLUCOSE,RANDOM 71 mg/dL (65-105); POTASSIUM 3.3 mmol/L (3.6-5.2); SODIUM 138 mmol/L (132-148); TOTAL PROTEIN 5.6 g/dL (6.3-8.3)
[2017-05-20] MEDS: Enoxaparin 30 mg Syringe SC SCH (09:02)
[2017-05-20] MEDS ORDERED: Potassium Chloride 20 mEq ER Tab PO ONE (09:15)
--- NOTE | 2017-05-20 09:50 | CP.PCM.PN ---
<Marcella Hopper - Last Filed: 05/20/17 09:50> Subjective - Date & Time of Evaluation Date of Evaluation: 05/20/17 Time of Evaluation: 07:15 - Subjective Subjective: Patient seen and examined at bedside this AM. NAEO. states that pain is improving. Denies any nausea, vomiting, fevers, or chills, tolerating small amount of clears. States she is passing gas this AM Objective - Vital Signs/Intake and Output Vital Signs (last 24 hours): Temp Pulse Resp BP Pulse Ox 98.2 F 58 L 17 93/60 L 97 05/20/17 07:10 05/20/17 07:10 05/20/17 07:10 05/20/17 07:10 05/20/17 07:10 Intake and Output: 05/20/17 05/20/17 06:59 18:59 Intake Total 1800 Output Total 55 Balance 1745 - Medications Medications: Current Medications Docusate Sodium (Colace) 100 mg PO BID [facility] Enoxaparin Sodium (Lovenox) 30 mg SC DAILY [facility] Last Admin: 05/20/17 09:02 Dose: 30 mg Piperacillin Sod/Tazobactam Sod (Zosyn 3.375 Gm Iv Premix) 3.375 gm in 50 mls @ 100 mls/hr IVPB Q6H [facility] Last Admin: 05/20/17 06:46 Dose: 100 mls/hr Metronidazole (Flagyl) 500 mg in 100 mls @ 100 mls/hr IVPB Q8H [facility] Last Admin: 05/20/17 06:11 Dose: 100 mls/hr BUPIVACAINE 0.125%/0.9% NACL (Bupivacaine-Ns 0.125% On-Q House Player) 600 mls @ 7 mls/ hr IJ ONCE ONE Stop: 05/22/17 22:12 Lactated Ringer's (Lactated Ringer's) 1,000 mls @ 1,000 mls/hr IV .Q1H ONE Stop: 05/20/17 09:59 Last Admin: 05/20/17 09:00 Dose: 1,000 mls/hr Potassium Chloride/Dextrose/Sod Cl (Potassium Chl 40 Meq In D5-1/2ns) 1,000 mls @ 100 mls/hr IV .Q10H [facility] Ketorolac Tromethamine (Toradol) 30 mg IV Q6H PRN PRN Reason: Pain, moderate (4-7) Last Admin: 05/20/17 00:18 Dose: 30 mg Ondansetron HCl (Zofran Inj) 4 mg IVP Q6H PRN PRN Reason: Nausea/Vomiting - Labs Labs: 05/20/17 06:55 05/20/17 06:55 - Constitutional Appears: Non-toxic, No Acute Distress - Head Exam Head Exam: ATRAUMATIC, NORMOCEPHALIC - Eye Exam Eye Exam: Normal appearance. absent: Conjunctival injection, Scleral icterus - ENT Exam ENT Exam: Mucous Membranes Moist, Normal Oropharynx - Respiratory Exam Respiratory Exam: NORMAL BREATHING PATTERN. absent: Accessory Muscle Use, Respiratory Distress - Cardiovascular Exam Cardiovascular Exam: RRR - GI/Abdominal Exam GI & Abdominal Exam: Soft, Tenderness (appropriate tenderness). absent: Distended Additional comments: surgical dressings C/d/i - Extremities Exam Extremities Exam: absent: Calf Tenderness, Pedal Edema, Tenderness - Neurological Exam Neurological Exam: Alert, Awake, Oriented x3 - Psychiatric Exam Psychiatric exam: Normal Affect, Normal Mood - Skin Skin Exam: Dry, Normal Color, Warm Assessment and Plan - Assessment and Plan (Free Text) Assessment: 32F POD#3 s/p laparoscopic hemicolectomy Persistent mild hypotension Plan: -Bolus 1 L LR -Continue fluids -Follow up labs tomorrow AM. -encouraged ambulation and IS use -Continue CLD--will possibly increase to FLD if patient tolerating more clears -continue abx, pain and nausea regimen -DVT/GI ppx -Colace this PM -Kdur to replenish K -Abdominal binder d/w Dr Robins, further recs per him Marcella Hopper, PGY2 <Landon Robins B - Last Filed: 05/21/17 21:12> Objective - Vital Signs/Intake and Output Vital Signs (last 24 hours): Temp Pulse Resp BP Pulse Ox 98.2 F 61 20 112/69 97 05/21/17 16:57 05/21/17 16:57 05/21/17 16:57 05/21/17 16:57 05/21/17 16:57 - Medications Medications: Current Medications Docusate Sodium (Colace) 100 mg PO BID [facility] Last Admin: 05/21/17 17:28 Dose: 100 mg Enoxaparin Sodium (Lovenox) 30 mg SC DAILY [facility] Last Admin: 05/21/17 09:26 Dose: 30 mg Piperacillin Sod/Tazobactam Sod (Zosyn 3.375 Gm Iv Premix) 3.375 gm in 50 mls @ 100 mls/hr IVPB Q6H [facility] Last Admin: 05/21/17 20:12 Dose: 100 mls/hr Metronidazole (Flagyl) 500 mg in 100 mls @ 100 mls/hr IVPB Q8H [facility] Last Admin: 05/21/17 14:16 Dose: 100 mls/hr Potassium Chloride/Dextrose/Sod Cl (Potassium Chl 40 Meq In D5-1/2ns) 1,000 mls @ 100 mls/hr IV .Q10H [facility] Last Admin: 05/21/17 17:28 Dose: 100 mls/hr BUPIVACAINE 0.125%/0.9% NACL (Bupivacaine-Ns 0.125% On-Q House Player) 600 mls @ 4 mls/ hr IJ ONCE ONE Stop: 05/27/17 15:59 Last Admin: 05/21/17 10:00 Dose: 4 mls/hr Ketorolac Tromethamine (Toradol) 30 mg IVP Q6 PRN PRN Reason: pain 4-8 Last Admin: 05/20/17 19:44 Dose: 30 mg Ondansetron HCl (Zofran Inj) 4 mg IVP Q6H PRN PRN Reason: Nausea/Vomiting Last Admin: 05/21/17 17:38 Dose: 4 mg - Labs Labs: 05/21/17 08:10 05/21/17 19:19 Attending/Attestation - Attestation I have personally seen and examined this patient.: Yes I have fully participated in the care of the patient.: Yes I have reviewed all pertinent clinical information, including history, physical exam and plan: Yes Notes (Text): 05/21/17 21:12 Pt was seen and examined at bedside Agree with above note and assessment
[2017-05-20] MEDS: Potassium Chl 40 mEq in D5-1/2 1,000 ML IV SCH (11:00)
[2017-05-21] MEDS: Piperacill/Tazo 3.375gm in Dex 3.375 GM/50 ML BAG IVPB SCH ×4 (00:49→20:12)
[2017-05-21] MEDS: Potassium Chl 40 mEq in D5-1/2 1,000 ML IV SCH ×2 (00:51→17:28)
[2017-05-21] MEDS: metroNIDAZOLE IV 500 mg/100 ml 500 MG/100 ML BAG IVPB SCH ×3 (06:01→22:25)
--- NOTE | 2017-05-21 06:10 | CP.PCM.PN ---
<Daysi Wrightyn - Last Filed: 05/21/17 06:04> Subjective - Date & Time of Evaluation Date of Evaluation: 05/21/17 Time of Evaluation: 06:06 - Subjective Subjective: General Surgery - Dr. Robins Pt S&E. KAMRAN. Pt has mild abdominal pain near the incision. She complains of mild nausea but no vomiting. Pt is tolerating clear liquid diet. No BM yet but is passing flatus. She has been ambulating and workin with IS. On-Q in place and to be refilled today. No F/C, SOB/Cp. Objective - Vital Signs/Intake and Output Vital Signs (last 24 hours): Temp Pulse Resp BP Pulse Ox 97.7 F 57 L 20 99/66 L 99 05/21/17 04:30 05/21/17 04:30 05/21/17 04:30 05/21/17 04:30 05/21/17 04:30 Intake and Output: 05/20/17 05/21/17 18:59 06:59 Intake Total 2750 1000 Output Total 50 10 Balance 2700 990 - Medications Medications: Current Medications Docusate Sodium (Colace) 100 mg PO BID [facility] Last Admin: 05/20/17 17:14 Dose: 100 mg Enoxaparin Sodium (Lovenox) 30 mg SC DAILY [facility] Last Admin: 05/20/17 09:02 Dose: 30 mg Piperacillin Sod/Tazobactam Sod (Zosyn 3.375 Gm Iv Premix) 3.375 gm in 50 mls @ 100 mls/hr IVPB Q6H [facility] Last Admin: 05/21/17 00:49 Dose: 100 mls/hr Metronidazole (Flagyl) 500 mg in 100 mls @ 100 mls/hr IVPB Q8H [facility] Last Admin: 05/21/17 06:01 Dose: 100 mls/hr BUPIVACAINE 0.125%/0.9% NACL (Bupivacaine-Ns 0.125% On-Q Lumber Grader) 600 mls @ 7 mls/ hr IJ ONCE ONE Stop: 05/22/17 22:12 Potassium Chloride/Dextrose/Sod Cl (Potassium Chl 40 Meq In D5-1/2ns) 1,000 mls @ 100 mls/hr IV .Q10H [facility] Last Admin: 05/21/17 00:51 Dose: 100 mls/hr BUPIVACAINE 0.125%/0.9% NACL (Bupivacaine-Ns 0.125% On-Q Lumber Grader) 600 mls @ 4 mls/ hr IJ ONCE ONE Stop: 05/27/17 10:45 Ketorolac Tromethamine (Toradol) 30 mg IVP Q6 PRN PRN Reason: pain 4-8 Last Admin: 05/20/17 19:44 Dose: 30 mg Ondansetron HCl (Zofran Inj) 4 mg IVP Q6H PRN PRN Reason: Nausea/Vomiting Last Admin: 05/20/17 21:45 Dose: 4 mg - Labs Labs: 05/20/17 06:55 05/20/17 06:55 - Constitutional Appears: No Acute Distress - Head Exam Head Exam: ATRAUMATIC, NORMAL INSPECTION, NORMOCEPHALIC - Eye Exam Eye Exam: Normal appearance - ENT Exam ENT Exam: Mucous Membranes Moist - Respiratory Exam Respiratory Exam: NORMAL BREATHING PATTERN. absent: Respiratory Distress - Cardiovascular Exam Cardiovascular Exam: REGULAR RHYTHM - GI/Abdominal Exam GI & Abdominal Exam: Soft, Tenderness (appropriately). absent: Distended, Guarding, Rebound Additional comments: midline dressing C/D/I marcia drain with serosanguinous drainage, 60cc/24hrs - Neurological Exam Neurological Exam: Alert, Oriented x3 - Psychiatric Exam Psychiatric exam: Normal Affect, Normal Mood - Skin Skin Exam: Dry, Intact Assessment and Plan - Assessment and Plan (Free Text) Assessment: 32F POD#4 s/p laparoscopic L hemicolectomy Plan: -Full liquid diet -Continue OnQ and Toradol PRN for pain -Anti-emetics prn -F/U AM Labs -Encourage OOB/Ambulation Maurilio Wright PGY3 <Landon Robins - Last Filed: 05/21/17 21:16> Objective - Vital Signs/Intake and Output Vital Signs (last 24 hours): Temp Pulse Resp BP Pulse Ox 98.2 F 61 20 112/69 97 05/21/17 16:57 05/21/17 16:57 05/21/17 16:57 05/21/17 16:57 05/21/17 16:57 - Medications Medications: Current Medications Docusate Sodium (Colace) 100 mg PO BID [facility] Last Admin: 05/21/17 17:28 Dose: 100 mg Enoxaparin Sodium (Lovenox) 30 mg SC DAILY [facility] Last Admin: 05/21/17 09:26 Dose: 30 mg Piperacillin Sod/Tazobactam Sod (Zosyn 3.375 Gm Iv Premix) 3.375 gm in 50 mls @ 100 mls/hr IVPB Q6H [facility] Last Admin: 05/21/17 20:12 Dose: 100 mls/hr Metronidazole (Flagyl) 500 mg in 100 mls @ 100 mls/hr IVPB Q8H [facility] Last Admin: 05/21/17 14:16 Dose: 100 mls/hr Potassium Chloride/Dextrose/Sod Cl (Potassium Chl 40 Meq In D5-1/2ns) 1,000 mls @ 100 mls/hr IV .Q10H [facility] Last Admin: 05/21/17 17:28 Dose: 100 mls/hr BUPIVACAINE 0.125%/0.9% NACL (Bupivacaine-Ns 0.125% On-Q Lumber Grader) 600 mls @ 4 mls/ hr IJ ONCE ONE Stop: 05/27/17 15:59 Last Admin: 05/21/17 10:00 Dose: 4 mls/hr Ketorolac Tromethamine (Toradol) 30 mg IVP Q6 PRN PRN Reason: pain 4-8 Last Admin: 05/20/17 19:44 Dose: 30 mg Ondansetron HCl (Zofran Inj) 4 mg IVP Q6H PRN PRN Reason: Nausea/Vomiting Last Admin: 05/21/17 17:38 Dose: 4 mg - Labs Labs: 05/21/17 08:10 05/21/17 19:19 Attending/Attestation - Attestation I have personally seen and examined this patient.: Yes I have fully participated in the care of the patient.: Yes I have reviewed all pertinent clinical information, including history, physical exam and plan: Yes Notes (Text): 05/21/17 21:16 Pt was seen and examined at bedside Agree with above note and assessment
[2017-05-21 08:16] LABS: HEMATOCRIT 28.7 % (34.0-47.0); MEAN CELL VOLUME 92.7 fL (81.0-99.0); MEAN CORPUSCULAR HEMOGLOBIN 32.3 pg (27.0-31.0); MEAN CORPUSCULAR HGB CONC 34.9 g/dL (33.0-37.0); RED CELL DISTRIBUTION WIDTH 13.3 % (11.5-14.5); WHITE BLOOD COUNT 5.6 K/uL (4.8-10.8)
[2017-05-21 08:30] LABS: POTASSIUM 3.4 mmol/L (3.6-5.2); SODIUM 135 mmol/L (132-148)
[2017-05-21 08:32] LABS: ALKALINE PHOSPHATASE 32 U/L (38-126); AST/SGOT 24 U/L (14-36); BILIRUBIN,TOTAL 0.4 mg/dL (0.2-1.3); CARBON DIOXIDE 27 mmol/L (22-30); GFR AFRICAN-AMERICAN > 60; TOTAL PROTEIN 5.3 g/dL (6.3-8.3)
[2017-05-21 08:33] LABS: ALT/SGPT 29 U/L (9-52); BLOOD UREA NITROGEN < 2 mg/dL (7-17); GLUCOSE,RANDOM 93 mg/dL (65-105)
[2017-05-21 08:34] LABS: CHLORIDE 101 mmol/L (98-107)
[2017-05-21] MEDS: Enoxaparin 30 mg Syringe SC SCH (09:26)
[2017-05-21] MEDS ORDERED: BUPIVACAINE 0.125%/0.9% NACL 600 ML IJ ONE (10:00)
[2017-05-21] MEDS ORDERED: Potassium Chloride 20 mEq ER Tab PO ONE ×2 (10:01→13:26)
[2017-05-21 19:43] LABS: BLOOD UREA NITROGEN < 2 mg/dL (7-17); CALCIUM 8.5 mg/dl (8.6-10.4); CARBON DIOXIDE 27 mmol/L (22-30); CHLORIDE 102 mmol/L (98-107); GFR AFRICAN-AMERICAN > 60; GLUCOSE,RANDOM 108 mg/dL (65-105); SODIUM 138 mmol/L (132-148)
[2017-05-22] MEDS: Piperacill/Tazo 3.375gm in Dex 3.375 GM/50 ML BAG IVPB SCH ×4 (01:38→20:49)
--- NOTE | 2017-05-22 05:10 | OP ---
PROCEDURE DATE: 05/17/2017 PREOPERATIVE DIAGNOSES: 1. Chronic constipation. 2. Abdominal pain. 3. Large redundant sigmoid colon. POSTOPERATIVE DIAGNOSES: 1. Chronic constipation. 2. Abdominal pain. 3. Large redundant sigmoid colon. PROCEDURE DONE: 1. Laparoscopic sigmoidectomy. 2. Laparoscopic upper rectal resection. 3. Laparoscopic splenic flexure mobilization. 4. On-Q pain catheter pump placement. SURGEON: The procedure was done by Dr. Shimon duncan. SALES SERVICE PROMOTER: SHADY Reddy and Chaitanya Khan, PGY-3 resident. TYPE OF ANESTHESIA: General endotracheal tube anesthesia. ESTIMATED BLOOD LOSS: Around 100 mL. DRAIN: A 19-Israeli Alvin drain was placed. COMPLICATIONS: None. INTRAOPERATIVE FINDINGS: The patient had a large redundant sigmoid colon as well as the upper rectum. On intraoperative steps, this 32-year-old female, who was diagnosed with chronic constipation and the patient had large redundant sigmoid colon and the patient had a multiple previous admission in the hospital as well as disimpaction and proctosigmoidoscopy since last 2 to 3 years, and the patient was consented for laparoscopic sigmoidectomy and possible open, brought to the OR, placed supine on the operating room table. After induction of the anesthesia, the patient was placed in lithotomy position in the stirrups and the abdomen was prepped and draped in the usual sterile fashion. A supraumbilical transverse incision was made. After incising skin and subcutaneous tissue, the fascia was incised. The Tee port was placed and pneumo was created. Another, 12-mm port was placed in the right lower quadrant. A 5-mm port was placed in the upper abdomen and another 5-mm port was placed in left lower quadrant and after that, the exploratory laparoscopy was done to identify the large redundant sigmoid colon, and after that, first splenic flexure mobilization was done. The splenic flexure mobilization was done and the gastrocolic ligament was divided, the lesser sac was entered. The colon attachment to the spleen as well as to the lateral abdominal wall was also divided and after proper splenic flexure mobilization, the ascending colon and sigmoid junction was divided with a JOSE and now the pelvic dissection was done. The patient found to have a dilated large rectum and the decision was made to resect the rectum and now the pelvic dissection was done and the left and right ureter was identified and total mesorectal excision plane was entered and the upper part of the rectum was resected and now through the small lower midline incision, the specimen was retrieved and the mesocolon was divided with LigaSure and at the end of the descending colon, the angle was placed and the mid-rectum to descending colon anastomosis was done with EGA and anastomosis was checked with air leak, and there was no air leak identified. There was no tension on anastomosis, there was good blood supply and the both doughnuts were intact, and the specimen was sent to the table for the pathology and after the proper hemostasis, a 19-Israeli Alvin drain was placed and the small lower midline abdominal incision was closed in two layers. The fascia with a 0-Vicryl PDS as well as 0-Prolene interrupted suture, skin with staple and also the 12-mm port was closed with Vicryl and quyen at the skin at all the port side, dry sterile dressing was applied. The patient tolerated the procedure well. Count of the instrument was correct. There was no apparent complication. The patient was extubated in OR and before the completion of the procedure, the On-Q pain catheter pump was placed on the both sides and the catheter was attached to the bulb and dry sterile dressing was applied. The patient was sent to the postanesthesia care unit in stable condition. Landon Robins MD
[2017-05-22] MEDS: Potassium Chl 40 mEq in D5-1/2 1,000 ML IV SCH ×2 (06:08→23:01)
[2017-05-22] MEDS: metroNIDAZOLE IV 500 mg/100 ml 500 MG/100 ML BAG IVPB SCH ×2 (06:09→14:55)
[2017-05-22 07:28] LABS: HEMATOCRIT 29.8 % (34.0-47.0); MEAN CELL VOLUME 93.1 fL (81.0-99.0); MEAN CORPUSCULAR HEMOGLOBIN 32.3 pg (27.0-31.0); MEAN CORPUSCULAR HGB CONC 34.7 g/dL (33.0-37.0); MEAN PLATELET VOLUME 8.3 fL (7.2-11.7); RED CELL DISTRIBUTION WIDTH 13.2 % (11.5-14.5); WHITE BLOOD COUNT 6.3 K/uL (4.8-10.8)
[2017-05-22 07:34] LABS: CHLORIDE 106 mmol/L (98-107); SODIUM 138 mmol/L (132-148)
[2017-05-22 07:35] LABS: POTASSIUM 3.9 mmol/L (3.6-5.2)
[2017-05-22 07:37] LABS: ALKALINE PHOSPHATASE 36 U/L (38-126); ALT/SGPT 29 U/L (9-52); AST/SGOT 21 U/L (14-36); BILIRUBIN,TOTAL 0.4 mg/dL (0.2-1.3); CARBON DIOXIDE 25 mmol/L (22-30); GFR AFRICAN-AMERICAN > 60; GLUCOSE,RANDOM 77 mg/dL (65-105)
[2017-05-22 07:38] LABS: CALCIUM 8.2 mg/dl (8.6-10.4)
[2017-05-22 07:50] LABS: BLOOD UREA NITROGEN < 2 mg/dL (7-17)
--- NOTE | 2017-05-22 08:25 | CP.PCM.PN ---
<Chaitanya Khan - Last Filed: 05/22/17 08:23> Subjective - Date & Time of Evaluation Date of Evaluation: 05/22/17 Time of Evaluation: 08:23 - Subjective Subjective: Gen Sx: Dr Robins Pt S&E. KAMRAN. Pain well-controlled. Complaining of nausea and episode of vomiting yesterday. Pt reports she has nausea and dizziness whenever she eats. Not yet passing flatus. Minimal ambulation. Objective - Vital Signs/Intake and Output Vital Signs (last 24 hours): Temp Pulse Resp BP Pulse Ox 98.7 F 60 17 99/62 L 100 05/22/17 07:10 05/22/17 07:10 05/22/17 07:10 05/22/17 07:10 05/22/17 07:10 Intake and Output: 05/22/17 05/22/17 06:59 18:59 Intake Total 2000 Output Total 40 Balance 1960 - Medications Medications: Current Medications Docusate Sodium (Colace) 100 mg PO BID [facility] Last Admin: 05/21/17 17:28 Dose: 100 mg Enoxaparin Sodium (Lovenox) 30 mg SC DAILY [facility] Last Admin: 05/21/17 09:26 Dose: 30 mg Piperacillin Sod/Tazobactam Sod (Zosyn 3.375 Gm Iv Premix) 3.375 gm in 50 mls @ 100 mls/hr IVPB Q6H [facility] Last Admin: 05/22/17 01:38 Dose: 100 mls/hr Metronidazole (Flagyl) 500 mg in 100 mls @ 100 mls/hr IVPB Q8H [facility] Last Admin: 05/22/17 06:09 Dose: 100 mls/hr Potassium Chloride/Dextrose/Sod Cl (Potassium Chl 40 Meq In D5-1/2ns) 1,000 mls @ 100 mls/hr IV .Q10H [facility] Last Admin: 05/22/17 06:08 Dose: 100 mls/hr BUPIVACAINE 0.125%/0.9% NACL (Bupivacaine-Ns 0.125% On-Q [employer] Operator) 600 mls @ 4 mls/ hr IJ ONCE ONE Stop: 05/27/17 15:59 Last Admin: 05/21/17 10:00 Dose: 4 mls/hr Ketorolac Tromethamine (Toradol) 30 mg IVP Q6 PRN PRN Reason: pain 4-8 Last Admin: 05/20/17 19:44 Dose: 30 mg Ondansetron HCl (Zofran Inj) 4 mg IVP Q6H PRN PRN Reason: Nausea/Vomiting Last Admin: 05/22/17 00:33 Dose: 4 mg - Labs Labs: 05/22/17 07:07 05/22/17 07:07 - Constitutional Appears: Non-toxic, No Acute Distress - Respiratory Exam Respiratory Exam: absent: Accessory Muscle Use, Respiratory Distress - Cardiovascular Exam Cardiovascular Exam: REGULAR RHYTHM - GI/Abdominal Exam GI & Abdominal Exam: Soft, Tenderness (post-op and approprioate). absent: Distended, Firm, Guarding Additional comments: dressings c/d/i: changed at bedside - Neurological Exam Neurological Exam: Alert, Awake, Oriented x3 Assessment and Plan - Assessment and Plan (Free Text) Assessment: 32F POD#5 s/p laparoscopic L hemicolectomy Plan: -cont Full liquid diet until passes flatus -Continue OnQ and Toradol PRN for pain -Anti-emetics prn -F/U AM Labs -Encourage OOB/Ambulation Dw DR hSimon Khan PGY3 <Landon Robins - Last Filed: 05/23/17 16:06> Objective - Vital Signs/Intake and Output Vital Signs (last 24 hours): Temp Pulse Resp BP Pulse Ox 98.1 F 68 20 114/78 97 05/23/17 07:00 05/23/17 07:00 05/23/17 07:00 05/23/17 07:00 05/23/17 07:00 Intake and Output: 05/23/17 05/23/17 06:59 18:59 Intake Total 1990 850 Output Total 60 130 Balance 1930 720 - Medications Medications: Current Medications Docusate Sodium (Colace) 100 mg PO BID [facility] Last Admin: 05/23/17 09:20 Dose: 100 mg Enoxaparin Sodium (Lovenox) 30 mg SC DAILY [facility] Last Admin: 05/23/17 09:20 Dose: 30 mg Piperacillin Sod/Tazobactam Sod (Zosyn 3.375 Gm Iv Premix) 3.375 gm in 50 mls @ 100 mls/hr IVPB Q6H [facility] Last Admin: 05/23/17 13:05 Dose: 100 mls/hr Potassium Chloride/Dextrose/Sod Cl (Potassium Chl 40 Meq In D5-1/2ns) 1,000 mls @ 100 mls/hr IV .Q10H [facility] Last Admin: 05/23/17 13:02 Dose: 100 mls/hr BUPIVACAINE 0.125%/0.9% NACL (Bupivacaine-Ns 0.125% On-Q [employer] Operator) 600 mls @ 4 mls/ hr IJ ONCE ONE Stop: 05/27/17 15:59 Last Admin: 05/21/17 10:00 Dose: 4 mls/hr Metronidazole (Flagyl) 500 mg in 100 mls @ 100 mls/hr IVPB Q8 [facility] Last Admin: 05/23/17 14:36 Dose: 100 mls/hr Ketorolac Tromethamine (Toradol) 30 mg IVP Q6 PRN PRN Reason: pain 4-8 Last Admin: 05/22/17 15:16 Dose: 30 mg Metoclopramide HCl (Reglan) 10 mg IVP Q6 [facility] Last Admin: 05/23/17 11:56 Dose: 10 mg Ondansetron HCl (Zofran Inj) 4 mg IVP Q6H PRN PRN Reason: Nausea/Vomiting Last Admin: 05/22/17 00:33 Dose: 4 mg Potassium Chloride (K-Dur 20 Meq Er Tab) 20 meq PO DAILY [facility] Last Admin: 05/23/17 10:32 Dose: 20 meq - Labs Labs: 05/23/17 08:30 05/23/17 08:30 Attending/Attestation - Attestation I have personally seen and examined this patient.: Yes I have fully participated in the care of the patient.: Yes I have reviewed all pertinent clinical information, including history, physical exam and plan: Yes Notes (Text): 05/23/17 16:06 Pt was seen and examined at bedside Agree with above note and assessment
[2017-05-22] MEDS: Enoxaparin 30 mg Syringe SC SCH (10:25)
--- NOTE | 2017-05-22 13:07 | CARD ---
APPROVED REPORT EKG Measurement Heart [id number] <Conclusion> Sinus rhythm with frequent premature ventricular complexes Otherwise normal ECG
[2017-05-23] MEDS: Piperacill/Tazo 3.375gm in Dex 3.375 GM/50 ML BAG IVPB SCH ×4 (02:22→19:00)
[2017-05-23 04:55] VITALS: O2SAT 97
[2017-05-23] MEDS: metroNIDAZOLE IV 500 mg/100 ml 500 MG/100 ML BAG IVPB SCH ×3 (07:58→21:40)
--- NOTE | 2017-05-23 08:03 | CP.PCM.PN ---
<Chaitanya Khan Jak - Last Filed: 05/23/17 08:04> Subjective - Date & Time of Evaluation Date of Evaluation: 05/23/17 Time of Evaluation: 08:02 - Subjective Subjective: Gen Sx: Dr Robins Pt S&E. KAMRAN. Pt continues to pass flatus. Complaining of headache, nausea, and lethargy. Has not been OOB much. Tolerating liquids but with very small amount of intake. Making adequate urine. Objective - Vital Signs/Intake and Output Vital Signs (last 24 hours): Temp Pulse Resp BP Pulse Ox 98.1 F 68 20 114/78 97 05/23/17 07:00 05/23/17 07:00 05/23/17 07:00 05/23/17 07:00 05/23/17 07:00 Intake and Output: 05/23/17 05/23/17 06:59 18:59 Intake Total 1990 Output Total 60 Balance 1930 - Medications Medications: Current Medications Docusate Sodium (Colace) 100 mg PO BID [facility] Last Admin: 05/22/17 18:16 Dose: 100 mg Enoxaparin Sodium (Lovenox) 30 mg SC DAILY [facility] Last Admin: 05/22/17 10:25 Dose: 30 mg Piperacillin Sod/Tazobactam Sod (Zosyn 3.375 Gm Iv Premix) 3.375 gm in 50 mls @ 100 mls/hr IVPB Q6H [facility] Last Admin: 05/23/17 07:28 Dose: 100 mls/hr Potassium Chloride/Dextrose/Sod Cl (Potassium Chl 40 Meq In D5-1/2ns) 1,000 mls @ 100 mls/hr IV .Q10H [facility] Last Admin: 05/22/17 23:01 Dose: 100 mls/hr BUPIVACAINE 0.125%/0.9% NACL (Bupivacaine-Ns 0.125% On-Q [employer] Guard) 600 mls @ 4 mls/ hr IJ ONCE ONE Stop: 05/27/17 15:59 Last Admin: 05/21/17 10:00 Dose: 4 mls/hr Metronidazole (Flagyl) 500 mg in 100 mls @ 100 mls/hr IVPB Q8 [facility] Last Admin: 05/23/17 07:58 Dose: 100 mls/hr Ketorolac Tromethamine (Toradol) 30 mg IVP Q6 PRN PRN Reason: pain 4-8 Last Admin: 05/22/17 15:16 Dose: 30 mg Metoclopramide HCl (Reglan) 10 mg IVP Q6 [facility] Last Admin: 05/23/17 06:11 Dose: 10 mg Ondansetron HCl (Zofran Inj) 4 mg IVP Q6H PRN PRN Reason: Nausea/Vomiting Last Admin: 05/22/17 00:33 Dose: 4 mg - Labs Labs: 05/22/17 07:07 05/22/17 07:07 - Constitutional Appears: Non-toxic, No Acute Distress - Eye Exam Eye Exam: Normal appearance - Respiratory Exam Respiratory Exam: absent: Accessory Muscle Use, Respiratory Distress - Cardiovascular Exam Cardiovascular Exam: REGULAR RHYTHM. absent: Tachycardia - GI/Abdominal Exam GI & Abdominal Exam: Soft, Tenderness (post-op and appropriate). absent: Distended, Firm - Neurological Exam Neurological Exam: Alert, Awake Assessment and Plan - Assessment and Plan (Free Text) Assessment: 32F POD#6 s/p laparoscopic left julio cesar-colectomy Plan: cont FLD replace electrolytes PRN encourage ambulation and IS use will cont to monitor for BM will d/w Dr Shimon Khan, PGY3 <Landon Robins - Last Filed: 05/23/17 16:10> Objective - Vital Signs/Intake and Output Vital Signs (last 24 hours): Temp Pulse Resp BP Pulse Ox 98.1 F 68 20 114/78 97 05/23/17 07:00 05/23/17 07:00 05/23/17 07:00 05/23/17 07:00 05/23/17 07:00 Intake and Output: 05/23/17 05/23/17 06:59 18:59 Intake Total 1989 850 Output Total 60 130 Balance 1930 720 - Medications Medications: Current Medications Docusate Sodium (Colace) 100 mg PO BID [facility] Last Admin: 05/23/17 09:20 Dose: 100 mg Enoxaparin Sodium (Lovenox) 30 mg SC DAILY [facility] Last Admin: 05/23/17 09:20 Dose: 30 mg Piperacillin Sod/Tazobactam Sod (Zosyn 3.375 Gm Iv Premix) 3.375 gm in 50 mls @ 100 mls/hr IVPB Q6H [facility] Last Admin: 05/23/17 13:05 Dose: 100 mls/hr Potassium Chloride/Dextrose/Sod Cl (Potassium Chl 40 Meq In D5-1/2ns) 1,000 mls @ 100 mls/hr IV .Q10H [facility] Last Admin: 05/23/17 13:02 Dose: 100 mls/hr BUPIVACAINE 0.125%/0.9% NACL (Bupivacaine-Ns 0.125% On-Q [employer] Guard) 600 mls @ 4 mls/ hr IJ ONCE ONE Stop: 05/27/17 15:59 Last Admin: 05/21/17 10:00 Dose: 4 mls/hr Metronidazole (Flagyl) 500 mg in 100 mls @ 100 mls/hr IVPB Q8 [facility] Last Admin: 05/23/17 14:36 Dose: 100 mls/hr Ketorolac Tromethamine (Toradol) 30 mg IVP Q6 PRN PRN Reason: pain 4-8 Last Admin: 05/22/17 15:16 Dose: 30 mg Metoclopramide HCl (Reglan) 10 mg IVP Q6 [facility] Last Admin: 05/23/17 11:56 Dose: 10 mg Ondansetron HCl (Zofran Inj) 4 mg IVP Q6H PRN PRN Reason: Nausea/Vomiting Last Admin: 05/22/17 00:33 Dose: 4 mg Potassium Chloride (K-Dur 20 Meq Er Tab) 20 meq PO DAILY [facility] Last Admin: 05/23/17 10:32 Dose: 20 meq - Labs Labs: 05/23/17 08:30 05/23/17 08:30 Attending/Attestation - Attestation I have personally seen and examined this patient.: Yes I have fully participated in the care of the patient.: Yes I have reviewed all pertinent clinical information, including history, physical exam and plan: Yes Notes (Text): 05/23/17 16:10 Pt was seen and examined at bedside Agree with above note and assessment Advance diet to soft diet. c/w current mx
[2017-05-23 08:39] LABS: HEMATOCRIT 30.1 % (34.0-47.0); MEAN CELL VOLUME 93.2 fL (81.0-99.0); MEAN CORPUSCULAR HEMOGLOBIN 32.5 pg (27.0-31.0); MEAN CORPUSCULAR HGB CONC 34.8 g/dL (33.0-37.0); MEAN PLATELET VOLUME 8.2 fL (7.2-11.7); WHITE BLOOD COUNT 6.9 K/uL (4.8-10.8)
[2017-05-23 09:07] LABS: CHLORIDE 105 mmol/L (98-107)
[2017-05-23 09:08] LABS: POTASSIUM 3.8 mmol/L (3.6-5.2); SODIUM 137 mmol/L (132-148)
[2017-05-23 09:10] LABS: BILIRUBIN,TOTAL 0.4 mg/dL (0.2-1.3); GFR AFRICAN-AMERICAN > 60
[2017-05-23 09:11] LABS: ALB/GLOB RATIO 1.1 (1.0-2.1); ALKALINE PHOSPHATASE 34 U/L (38-126); ALT/SGPT 30 U/L (9-52); AST/SGOT 22 U/L (14-36); BLOOD UREA NITROGEN 3 mg/dL (7-17); CALCIUM 8.1 mg/dl (8.6-10.4); CARBON DIOXIDE 24 mmol/L (22-30); GLUCOSE,RANDOM 79 mg/dL (65-105); TOTAL PROTEIN 5.8 g/dL (6.3-8.3)
[2017-05-23] MEDS: Enoxaparin 30 mg Syringe SC SCH (09:20)
[2017-05-23] MEDS: Potassium Chloride 20 mEq ER Tab PO SCH (10:32)
[2017-05-23] MEDS: Potassium Chl 40 mEq in D5-1/2 1,000 ML IV SCH ×2 (13:02→22:24)
[2017-05-24] MEDS: Piperacill/Tazo 3.375gm in Dex 3.375 GM/50 ML BAG IVPB SCH ×3 (01:44→13:15)
[2017-05-24] MEDS: Potassium Chl 40 mEq in D5-1/2 1,000 ML IV SCH (02:23)
[2017-05-24 02:53] VITALS: RESP 20
[2017-05-24] MEDS: metroNIDAZOLE IV 500 mg/100 ml 500 MG/100 ML BAG IVPB SCH ×2 (05:15→13:17)
[2017-05-24 08:04] VITALS: BP 102/66; PULSE 72; TEMP 98
[2017-05-24 08:46] LABS: CHLORIDE 103 mmol/L (98-107); SODIUM 137 mmol/L (132-148)
[2017-05-24 08:48] LABS: ALB/GLOB RATIO 1.1 (1.0-2.1); AST/SGOT 20 U/L (14-36); BILIRUBIN,TOTAL 0.3 mg/dL (0.2-1.3); CARBON DIOXIDE 24 mmol/L (22-30); GFR AFRICAN-AMERICAN > 60; TOTAL PROTEIN 5.9 g/dL (6.3-8.3)
[2017-05-24 08:49] LABS: ALKALINE PHOSPHATASE 34 U/L (38-126); ALT/SGPT 29 U/L (9-52); BLOOD UREA NITROGEN < 2 mg/dL (7-17); CALCIUM 8.1 mg/dl (8.6-10.4); GLUCOSE,RANDOM 88 mg/dL (65-105)
--- NOTE | 2017-05-24 10:25 | CP.PCM.PN ---
<Naima Hameed - Last Filed: 05/24/17 10:22> Subjective - Date & Time of Evaluation Date of Evaluation: 05/24/17 Time of Evaluation: 10:23 - Subjective Subjective: Surgery Pt s&e. RAAD. Pt reports BM. Denies F/C/N/V/D. Tolerating diet. + amb. Pain controlled. Objective - Vital Signs/Intake and Output Vital Signs (last 24 hours): Temp Pulse Resp BP Pulse Ox 98.0 F 72 20 102/66 97 05/24/17 07:10 05/24/17 07:10 05/24/17 07:10 05/24/17 07:10 05/24/17 07:10 Intake and Output: 05/24/17 05/24/17 06:59 18:59 Intake Total 1970 Output Total 130 Balance 1840 - Medications Medications: Current Medications Docusate Sodium (Colace) 100 mg PO BID [facility] Last Admin: 05/23/17 18:37 Dose: 100 mg Enoxaparin Sodium (Lovenox) 30 mg SC DAILY [facility] Last Admin: 05/23/17 09:20 Dose: 30 mg Piperacillin Sod/Tazobactam Sod (Zosyn 3.375 Gm Iv Premix) 3.375 gm in 50 mls @ 100 mls/hr IVPB Q6H [facility] Last Admin: 05/24/17 01:44 Dose: 100 mls/hr BUPIVACAINE 0.125%/0.9% NACL (Bupivacaine-Ns 0.125% On-Q [employer] Supervisor) 600 mls @ 4 mls/ hr IJ ONCE ONE Stop: 05/27/17 15:59 Last Admin: 05/21/17 10:00 Dose: 4 mls/hr Metronidazole (Flagyl) 500 mg in 100 mls @ 100 mls/hr IVPB Q8 [facility] Last Admin: 05/24/17 05:15 Dose: 100 mls/hr Ketorolac Tromethamine (Toradol) 30 mg IVP Q6 PRN PRN Reason: pain 4-8 Last Admin: 05/22/17 15:16 Dose: 30 mg Metoclopramide HCl (Reglan) 10 mg IVP Q6 [facility] Last Admin: 05/24/17 00:18 Dose: 10 mg Ondansetron HCl (Zofran Inj) 4 mg IVP Q6H PRN PRN Reason: Nausea/Vomiting Last Admin: 05/22/17 00:33 Dose: 4 mg Potassium Chloride (K-Dur 20 Meq Er Tab) 20 meq PO DAILY [facility] Last Admin: 05/23/17 10:32 Dose: 20 meq - Labs Labs: 05/23/17 08:30 05/24/17 08:19 - Constitutional Appears: No Acute Distress - Head Exam Head Exam: ATRAUMATIC, NORMAL INSPECTION, NORMOCEPHALIC - Eye Exam Eye Exam: EOMI, Normal appearance, PERRL Pupil Exam: NORMAL ACCOMODATION, PERRL - ENT Exam ENT Exam: Mucous Membranes Moist, Normal Exam - Neck Exam Neck Exam: Full ROM, Normal Inspection. absent: Lymphadenopathy - Respiratory Exam Respiratory Exam: Clear to Ausculation Bilateral, NORMAL BREATHING PATTERN - Cardiovascular Exam Cardiovascular Exam: REGULAR RHYTHM, +S1, +S2. absent: Murmur - GI/Abdominal Exam GI & Abdominal Exam: Soft, Tenderness, Normal Bowel Sounds. absent: Distended, Firm, Guarding Additional comments: Incision C/D/I. - Exam Exam: NORMAL INSPECTION - Extremities Exam Extremities Exam: Full ROM, Normal Capillary Refill, Normal Inspection. absent : Joint Swelling, Pedal Edema - Back Exam Back Exam: NORMAL INSPECTION - Neurological Exam Neurological Exam: Alert, Awake, CN II-XII Intact, Normal Gait, Oriented x3 - Psychiatric Exam Psychiatric exam: Normal Affect, Normal Mood - Skin Skin Exam: Dry, Intact, Normal Color, Warm. absent: Erythema Assessment and Plan - Assessment and Plan (Free Text) Assessment: 32F POD#7 s/p laparoscopic left julio cesar-colectomy Plan: Regular diet replace electrolytes PRN encourage ambulation and IS use Possible DC today or tomorrow. will d/w Dr Robins <Landon Robins - Last Filed: 05/24/17 18:58> Objective - Vital Signs/Intake and Output Vital Signs (last 24 hours): Temp Pulse Resp BP Pulse Ox 98.0 F 72 20 102/66 97 05/24/17 07:10 05/24/17 07:10 05/24/17 07:10 05/24/17 07:10 05/24/17 07:10 Intake and Output: 05/24/17 05/24/17 06:59 18:59 Intake Total 1970 Output Total 130 Balance 1840 - Labs Labs: 05/23/17 08:30 05/24/17 08:19 Attending/Attestation - Attestation I have personally seen and examined this patient.: Yes I have fully participated in the care of the patient.: Yes I have reviewed all pertinent clinical information, including history, physical exam and plan: Yes Notes (Text): 05/24/17 18:57 Pt was seen and examined at bedside Agree with above note and assessment Pt had BM today Pt can be DC home on soft diet c.w colace Drain removal Plan d.w pt in detail f.u as out pt
[2017-05-24] MEDS: Enoxaparin 30 mg Syringe SC SCH (10:52)
[2017-05-24] MEDS: Potassium Chloride 20 mEq ER Tab PO SCH (10:54)
[2017-05-24 14:01] LABS: URINE BACTERIA RARE (<OCC); URINE BILIRUBIN NEGATIVE (NEGATIVE); URINE BLOOD NEGATIVE (NEGATIVE); URINE COLOR Yellow (YELLOW); URINE GLUCOSE (UA) NORMAL (Normal); URINE KETONE NEGATIVE (NEGATIVE); URINE LEUKOCYTE ESTERASE TRACE Leu/uL (Negative); URINE PROTEIN NEGATIVE (NEGATIVE); URINE UROBILINOGEN NORMAL mg/dL (0.2-1.0); WBC URINE 1 /hpf (0-5)
--- NOTE | 2017-05-24 15:08 | CP.PCM.DIS ---
Provider - Provider Date of Admission: 05/17/17 13:28 Attending physician: Landon Robins MD Time Spent in preparation of Discharge (in minutes): 45 Hospital Course - Lab Results Lab Results: Most Recent Lab Values WBC 6.9 K/uL (4.8-10.8) 05/23/17 08:30 RBC 3.23 Mil/uL (3.80-5.20) L 05/23/17 08:30 Hgb 10.5 g/dL (11.0-16.0) L 05/23/17 08:30 Hct 30.1 % (34.0-47.0) L 05/23/17 08:30 MCV 93.2 fL (81.0-99.0) 05/23/17 08:30 MCH 32.5 pg (27.0-31.0) H 05/23/17 08:30 MCHC 34.8 g/dL (33.0-37.0) 05/23/17 08:30 RDW 13.0 % (11.5-14.5) 05/23/17 08:30 Plt Count 256 K/uL (130-400) 05/23/17 08:30 MPV 8.2 fL (7.2-11.7) 05/23/17 08:30 Neut % (Auto) 85.7 % (50.0-75.0) H 05/18/17 07:16 Lymph % (Auto) 9.7 % (20.0-40.0) L 05/18/17 07:16 [place] % (Auto) 4.3 % (0.0-10.0) 05/18/17 07:16 Eos % (Auto) 0.1 % (0.0-4.0) 05/18/17 07:16 Baso % (Auto) 0.2 % (0.0-2.0) 05/18/17 07:16 Neut # 9.3 K/uL (1.8-7.0) H 05/18/17 07:16 Lymph # 1.1 K/uL (1.0-4.3) 05/18/17 07:16 [place] # 0.5 K/uL (0.0-0.8) 05/18/17 07:16 Eos # 0.0 K/uL (0.0-0.7) 05/18/17 07:16 Baso # 0.0 K/uL (0.0-0.2) 05/18/17 07:16 Neutrophils % (Manual) 73 % (50-75) 05/18/17 07:16 Band Neutrophils % 11 % (0-2) H* 05/18/17 07:16 Lymphocytes % (Manual) 9 % (20-40) L 05/18/17 07:16 Monocytes % (Manual) 6 % (0-10) 05/18/17 07:16 Myelocytes % 1 % (0-0) H 05/18/17 07:16 Platelet Estimate Normal (NORMAL) 05/18/17 07:16 Hypochromasia (manual) Slight 05/18/17 07:16 Poikilocytosis (manual Slight 05/18/17 07:16 Anisocytosis (manual) Slight 05/18/17 07:16 Sodium 137 mmol/L (132-148) 05/24/17 08:19 Potassium 4.0 mmol/L (3.6-5.2) 05/24/17 08:19 Chloride 103 mmol/L (98-107) 05/24/17 08:19 Carbon Dioxide 24 mmol/L (22-30) 05/24/17 08:19 Anion Gap 13 (10-20) 05/24/17 08:19 BUN < 2 mg/dL (7-17) L 05/24/17 08:19 Creatinine 0.6 MG/DL (0.7-1.2) L 05/24/17 08:19 Est GFR ( Amer) > 60 05/24/17 08:19 Est GFR (Non-Af Amer) > 60 05/24/17 08:19 Random Glucose 88 mg/dL (65-105) 05/24/17 08:19 Calcium 8.1 mg/dl (8.6-10.4) L 05/24/17 08:19 Total Bilirubin 0.3 mg/dL (0.2-1.3) 05/24/17 08:19 AST 20 U/L (14-36) 05/24/17 08:19 ALT 29 U/L (9-52) 05/24/17 08:19 Alkaline Phosphatase 34 U/L (38-126) L 05/24/17 08:19 Total Protein 5.9 g/dL (6.3-8.3) L 05/24/17 08:19 Albumin 3.1 g/dL (3.5-5.0) L 05/24/17 08:19 Globulin 2.8 gm/dL (2.2-3.9) 05/24/17 08:19 Albumin/Globulin Ratio 1.1 (1.0-2.1) 05/24/17 08:19 Urine Color Yellow (YELLOW) 05/24/17 13:48 Urine Clarity Clear (Clear) 05/24/17 13:48 Urine pH 5.0 (5.0-8.0) 05/24/17 13:48 Ur Specific Rew 1.015 (1.003-1.030) 05/24/17 13:48 Urine Protein Negative mg/dL (NEGATIVE) 05/24/17 13:48 Urine Glucose (UA) Normal mg/dL (Normal) 05/24/17 13:48 Urine Ketones Negative mg/dL (NEGATIVE) 05/24/17 13:48 Urine Blood Negative (NEGATIVE) 05/24/17 13:48 Urine Nitrate Negative (NEGATIVE) 05/24/17 13:48 Urine Bilirubin Negative (NEGATIVE) 05/24/17 13:48 Urine Urobilinogen Normal mg/dL (0.2-1.0) 05/24/17 13:48 Ur Leukocyte Esterase Trace [place]/uL (Negative) 05/24/17 13:48 Urine WBC (Auto) 1 /hpf (0-5) 05/24/17 13:48 Ur Squamous Epith Cells 1 /hpf (0-5) 05/24/17 13:48 Urine Bacteria Rare (<OCC) 05/24/17 13:48 Blood Type A NEGATIVE 05/17/17 08:22 Antibody Screen Negative 05/17/17 08:22 - Hospital Course Hospital Course: 32F w PMH of severe chronic constipation came to [facility] for laparoscopic L hemicolectomy. Pt tolerated it well. Throughout her stay. Pt tolerated diet. Had BM on POD 7. Pain controlled. Ambulated. VOided. Pt had hypokalemia. Potassium was repleted and stayed on ABX. Drain was DC ed prior to going home. Pt was cleared to go home. Pt was instructed to follow up at Dr. Robins's office on Tu to quyen removal Take Pain med and colace as needed. COntinue soft diet No heavy lifting for 1 month Ok to take shower. Pt understood and agreed. Discharge Exam - Head Exam Head Exam: ATRAUMATIC, NORMAL INSPECTION, NORMOCEPHALIC - Eye Exam Eye Exam: EOMI, Normal appearance, PERRL Pupil Exam: NORMAL ACCOMODATION, PERRL - Respiratory Exam Respiratory Exam: NORMAL BREATHING PATTERN, UNREMARKABLE - Cardiovascular Exam Cardiovascular Exam: REGULAR RHYTHM - GI/Abdominal Exam GI & Abdominal Exam: Normal Bowel Sounds, Soft. absent: Distended, Firm, Guarding, Hernia, Tenderness Additional comments: Incision C/D/I - Exam Exam: NORMAL INSPECTION - Extremities Exam Extremities exam: full ROM - Neurological Exam Neurological exam: Alert, CN II-XII Intact, Normal Gait, Oriented x3, Reflexes Normal - Psychiatric Exam Psychiatric exam: Normal Affect, Normal Mood - Skin Skin Exam: Dry, Intact, Normal Color, Warm Discharge Plan - Follow Up Plan Condition: GOOD Disposition: HOME/ ROUTINE Instructions: Constipation (DC), Constipation (GEN), Laparoscopic Bowel Resection (DC) Additional Instructions: follow up at Dr. Robins's office on to quyen removal Take Pain med and colace as needed. COntinue soft diet No heavy lifting for 1 month Ok to take shower.
== END 2017-05-24 16:55 | disposition home or self-care (01) | DRG 146 ==
LOC: C.SDS 06:58 → C.6T 13:28
PROVIDERS: ADMIT Surgery Surgical Critical Care; ATTEND Surgery Surgical Critical Care
PROC: 0JH83VZ Insertion of Infusion Pump into Abdomen Subcutaneous Tissue and Fascia, Percutaneous Approach (ICD-10-PCS; 2017-05-17)
PROC: 0DTP4ZZ Resection of Rectum, Percutaneous Endoscopic Approach (ICD-10-PCS; 2017-05-17)
PROC: 0DTN4ZZ Resection of Sigmoid Colon, Percutaneous Endoscopic Approach (ICD-10-PCS; principal; 2017-05-17 09:00)
DX: Q43.8 Other specified congenital malformations of intestine (principal); K63.89 Other specified diseases of intestine; K59.09 Other constipation; G89.18 Other acute postprocedural pain; E87.6 Hypokalemia; I49.3 Ventricular premature depolarization

== ENCOUNTER 2017-06-06 07:38 | Observation (INO) | payer SELFPAY ==
[2017-06-06 07:39] VITALS: BMI 27.3
[2017-06-06 07:43] VITALS: O2SAT 100
--- NOTE | 2017-06-06 08:08 | C.PDOC ---
History Of Present Illness 32 yr old female presents to the ER for evaluation of new onset of lower abdominal pain for the past 3 days. Patient reports she is s/p laparoscopic left hemicolectomy on 05/[address] Chavis and had the quyen removed last week. Patent states she had been doing well until 3 days ago when the pain started. Patient states the pain is localized and constant, with new onset of redness, states "wound change" 3 days ago. Patient reports of nausea and vomiting which started yesterday. Patient reports her LMP 3 days ago, however states "this is not my normal period pain". Otherwise, patient denies fever, chills, chest pain, SOB, diarrhea, constipation, dysuria, incontinence, weakness or numbness. VIA TRANS NEW ONSET LOWER ABD PAIN X 3 DAYS. S/P laparoscopic L hemicolectomy 05/17 DR GUZMAN, SP STAPLE REMOVAL LAST WEEK. PS HAS BEEN DOING WELL UNTIL 3 DAYS AGO. PAIN LOCALZED CONSTANT. NEW ONSET REDNESS, "WOUND CHANGE" X 3 DAYS. +NV YEST. NO FEVER. LMP 3 DAYS. PS "THIS IS NOT MY NORMAL PERIOD PAIN" NPO SINCE LAST NIGHT EXAM MILD DIST NONTOXIC HEENT NEG ABD +B/L LQ TEND MOD SOFT NO RG. +TEND ALONG WOUND SKIN ?MIN DEHISC DISTAL WOUND ABD WALL W LOCAL ERYTHEMA, NO BLANCHING. _LOCAL TEND. REMAINDER NEG Time Seen by Provider: 06/06/17 07:58 Chief Complaint (Nursing): Abdominal Pain History Per: Patient History/Exam Limitations: no limitations Onset/Duration Of Symptoms: Days Current Symptoms Are (Timing): Still Present Location Of Pain/Discomfort: LUQ, LLQ Past Medical History Reviewed: Historical Data, Nursing Documentation, Vital Signs Vital Signs: Last Vital Signs Temp 97.8 F 06/06/17 07:41 Pulse 68 06/06/17 07:41 Resp 18 06/06/17 07:41 BP 109/78 06/06/17 07:41 Pulse Ox 100 06/06/17 08:28 - Medical History PMH: Hyperthyroidism, Hypothyroidism, Migraine Surgical History: Endoscopy - [facility] Procedures INSERT OF INFUSION PUMP INTO ABD SUBCU/FASCIA, PERC APPROACH (05/17/17) IRRIGATION OF LOWER GI USING IRRIGATING SUBSTANCE, ENDO (09/05/16) RESECTION OF RECTUM, PERCUTANEOUS ENDOSCOPIC APPROACH (05/17/17) RESECTION OF SIGMOID COLON, PERCUTANEOUS ENDOSCOPIC APPROACH (05/17/17) Family History: States: No Known Family Hx - Social History Hx Tobacco Use: No Hx Alcohol Use: No Hx Substance Use: No - Immunization History Hx Tetanus Toxoid Vaccination: No Hx Influenza Vaccination: No Hx Pneumococcal Vaccination: No Review Of Systems Except As Marked, All Systems Reviewed And Found Negative. Constitutional: Negative for: Fever, Chills Cardiovascular: Negative for: Chest Pain Respiratory: Negative for: Shortness of Breath Gastrointestinal: Positive for: Nausea, Vomiting, Abdominal Pain (Lower). Negative for: Diarrhea, Constipation Genitourinary: Negative for: Dysuria, Incontinence Neurological: Negative for: Weakness, Numbness Physical Exam - Physical Exam Appears: Non-toxic, In Acute Distress (Mild) Skin: Warm, Dry, No Rash Head: Atraumatic, Normacephalic Eye(s): bilateral: Normal Inspection, PERRL, EOMI Oral Mucosa: Moist Chest: Symmetrical, No Tenderness Cardiovascular: Rhythm Regular, No Murmur Respiratory: Normal Breath Sounds, No Rales, No Rhonchi, No Stridor, No Wheezing Gastrointestinal/Abdominal: Soft, Tenderness (Bilateral LQ tenderness), No Guarding, No Rebound, Other ((+) Tenderness along wound, skin minimal dehiscence distal wound abdominal wall with local erythema. No blanching. Local tender) Back: Normal Inspection, No CVA Tenderness Extremity: Normal ROM, No Swelling Neurological/Psych: Oriented x3, Normal Speech, Normal Motor ED Course And Treatment - Laboratory Results Result Diagrams: 06/06/17 08:49 06/06/17 08:49 O2 Sat by Pulse Oximetry: 100 (RA) Pulse Ox Interpretation: Normal Medical Decision Making Medical Decision Making: PLAN: * CBC * BMP * Urinalysis ED OBSERVATION Discharge: Yes Date of observation admission: 06/06/17 Time of observation admission: 08:00 - Observation admission statement Patient is being placed in observation because:: ABD PAIN - Goals of Observation Goals of observation are:: NEG ACUTE ABD, SURG EVAL - Progress Note Progress Note: 06/06/17 08:11 D/W DR TRIVEDI SURG RESIDENT WILL EVAL IN ER 06/06/17 09:39 SP I&D BY SURG RESIDENT, +HEMATOMA. CLEARED FOR DC, FU OFFICE Disposition Counseled Patient/Family Regarding: Studies Performed, Diagnosis, Need For Followup, Rx Given - Disposition Disposition: HOME/ ROUTINE Disposition Time: 09:40 Condition: IMPROVED - Clinical Impression Clinical Impression: Cellulitis, Postoperative wound hematoma - Scribe Statement The provider has reviewed the documentation as recorded by the Misaibe Elba Landaverde Provider Attestation: All medical record entries made by the Maribell were at my direction and personally dictated by me. I have reviewed the chart and agree that the record accurately reflects my personal performance of the history, physical exam, medical decision making, and the department course for this patient. I have also personally directed, reviewed, and agree with the discharge instructions and disposition.
[2017-06-06] MEDS ORDERED: Lidocaine 2% Inj (20ml) SC ONE (08:29)
[2017-06-06] MEDS ORDERED: Lidocaine 2% Inj (20ml) ONE (08:42)
[2017-06-06 08:55] LABS: BASO # 0.1 K/uL (0.0-0.2); EOS # 0.5 K/uL (0.0-0.7); EOS % 6.5 % (0.0-4.0); HEMATOCRIT 30.9 % (34.0-47.0); LYMPH # 1.6 K/uL (1.0-4.3); MEAN CELL VOLUME 93.3 fL (81.0-99.0); MEAN CORPUSCULAR HEMOGLOBIN 32.6 pg (27.0-31.0); MEAN CORPUSCULAR HGB CONC 34.9 g/dL (33.0-37.0); MEAN PLATELET VOLUME 7.9 fL (7.2-11.7); MONO # 0.4 K/uL (0.0-0.8); MONO % 6.3 % (0.0-10.0); RED CELL DISTRIBUTION WIDTH 13.2 % (11.5-14.5); WHITE BLOOD COUNT 6.9 K/uL (4.8-10.8)
[2017-06-06 08:58] LABS: RBC URINE 4 /hpf (0-3); URINE BILIRUBIN NEGATIVE (NEGATIVE); URINE BLOOD 1+ (NEGATIVE); URINE COLOR Yellow (YELLOW); URINE GLUCOSE (UA) NORMAL (Normal); URINE KETONE NEGATIVE (NEGATIVE); URINE LEUKOCYTE ESTERASE NEG Leu/uL (Negative); URINE PROTEIN NEGATIVE (NEGATIVE); WBC URINE 1 /hpf (0-5)
[2017-06-06 09:01] LABS: CHLORIDE 101 mmol/L (98-107); POTASSIUM 3.6 mmol/L (3.6-5.2); SODIUM 141 mmol/L (132-148)
[2017-06-06 09:03] LABS: GFR AFRICAN-AMERICAN > 60
[2017-06-06 09:04] LABS: BLOOD UREA NITROGEN 11 mg/dL (7-17); CALCIUM 8.8 mg/dl (8.6-10.4); CARBON DIOXIDE 25 mmol/L (22-30); GLUCOSE,RANDOM 80 mg/dL (65-105)
[2017-06-06] MEDS ORDERED: Amoxicillin-Clav 875-125 mg Tab PO STA (09:41)
[2017-06-06] MEDS ORDERED: Amoxicillin-Clav 875-125 mg Tab PO ONE (09:56)
[2017-06-06 09:59] VITALS: BP 98/63; PULSE 57; RESP 20; TEMP 97.3
--- NOTE | 2017-06-06 10:09 | CP.PCM.CON ---
<Meek Sadler - Last Filed: 06/07/17 05:46> History of Present Illness - History of Present Illness History of Present Illness: General Surgery Consult Note for Dr. Robins Reason for consult: lower abdominal pain 32 F with PMH of s/p left hemicolectomy (05/17) with Dr. Robins presents for lower abdominal pain. Patient states pain started 3 days ago. She also noticed redness around the lower pole of her incision where the pain is located. She had her quyen removed last week in Dr. Robins's office. She rates pain as severe. She describes the pain as constant and sharp located on lower pole of incision. Patient reports associated nausea/vomiting yesterday. Patient had her LMP 3 days ago. Patient denies fever/chills, chest pain, SOB, diarrhea, constipation, dysuria, incontinence. Review of Systems - Review of Systems All systems: reviewed and no additional remarkable complaints except (abdominal pain, nausea, vomiting) Past Patient History - Infectious Disease Hx of Infectious Diseases: None - Past Medical History & Family History Past Medical History?: Yes - Past Social History Smoking Status: Never Smoked - CARDIAC Hx Cardiac Disorders: No - PULMONARY Hx Respiratory Disorders: No - NEUROLOGICAL Hx Migraine: Yes - HEENT Hx HEENT Problems: No - RENAL Hx Chronic Kidney Disease: No - ENDOCRINE/METABOLIC Hx Hyperthyroidism: Yes Hx Hypothyroidism: Yes - HEMATOLOGICAL/ONCOLOGICAL Hx Blood Disorders: No - INTEGUMENTARY Hx Dermatological Problems: No - MUSCULOSKELETAL/RHEUMATOLOGICAL Hx Falls: No - GASTROINTESTINAL Hx Gastrointestinal Disorders: Yes Other/Comment: CHRONIC CONSTIPATION, POSSIBLE ESPHAGEAL STRICTURE BY CT SCAN. - GENITOURINARY/GYNECOLOGICAL Hx Genitourinary Disorders: No - PSYCHIATRIC Hx Substance Use: No - SURGICAL HISTORY Hx Surgeries: Yes Other/Comment: ABDOMEN SX - ANESTHESIA Hx Anesthesia: Yes Hx Anesthesia Reactions: No Meds Home Medications: Home Medication List Medication Instructions Recorded Confirmed Type Amoxicillin/Clavulanate [Augmentin 1 tab PO BID #14 tab 06/06/17 Rx 875 MG-125 MG] Allergies/Adverse Reactions: Allergies Allergy/AdvReac Type Severity Reaction Status Date / Time No Known Allergies Allergy Verified 06/06/17 07:43 Physical Exam - Constitutional Appears: No Acute Distress - Head Exam Head Exam: ATRAUMATIC, NORMOCEPHALIC - Eye Exam Eye Exam: Normal appearance - ENT Exam ENT Exam: Mucous Membranes Moist - Neck Exam Neck exam: Positive for: Full Rom - Respiratory Exam Respiratory Exam: NORMAL BREATHING PATTERN - Cardiovascular Exam Cardiovascular Exam: REGULAR RHYTHM - GI/Abdominal Exam GI & Abdominal Exam: Normal Bowel Sounds, Soft, Tenderness (lower pole of incision). absent: Distended, Firm, Guarding, Rebound, Rigid Additional comments: Tenderness, mild erythema and induration at lower pole of incision - Extremities Exam Extremities exam: Positive for: normal capillary refill, pedal pulses present. Negative for: calf tenderness - Back Exam Back exam: absent: CVA tenderness (L), CVA tenderness (R) - Neurological Exam Neurological exam: Alert, CN II-XII Intact, Oriented x3 - Psychiatric Exam Psychiatric exam: Normal Affect, Normal Mood - Skin Skin Exam: Dry, Warm Results - Vital Signs Recent Vital Signs: Last Vital Signs Temp 97.3 F L 06/06/17 09:58 Pulse 57 L 06/06/17 09:58 Resp 20 06/06/17 09:58 BP 98/63 L 06/06/17 09:58 Pulse Ox 100 06/06/17 09:58 - Labs Result Diagrams: 06/06/17 08:49 06/06/17 08:49 Labs: Laboratory Results - last 24 hr 06/06/17 06/06/17 06/06/17 08:39 08:49 08:49 WBC 6.9 RBC 3.31 L Hgb 10.8 L Hct 30.9 L MCV 93.3 MCH 32.6 H MCHC 34.9 RDW 13.2 Plt Count 419 H D MPV 7.9 Neut % (Auto) 62.2 Lymph % (Auto) 24.0 [place] % (Auto) 6.3 Eos % (Auto) 6.5 H Baso % (Auto) 1.0 Neut # 4.3 Lymph # 1.6 [place] # 0.4 Eos # 0.5 Baso # 0.1 Sodium 141 Potassium 3.6 Chloride 101 Carbon Dioxide 25 Anion Gap 18 BUN 11 Creatinine 0.4 L Est GFR ( Amer) > 60 Est GFR (Non-Af Amer) > 60 Random Glucose 80 Calcium 8.8 Urine Color Yellow Urine Clarity Clear Urine pH 5.0 Ur Specific J[place]att 1.019 Urine Protein Negative Urine Glucose (UA) Normal Urine Ketones Negative Urine Blood 1+ H Urine Nitrate Negative Urine Bilirubin Negative Urine Urobilinogen 2.0 H Ur Leukocyte Esterase Neg Urine WBC (Auto) 1 Urine RBC (Auto) 4 H Ur Squamous Epith Cells < 1 Assessment & Plan - Assessment and Plan (Free Text) Plan: 32 F s/p left hemicolectomy (05/17) with Dr. Robins presents for lower abdominal pain -I&D with packing -Augmentin for 10 days -Follow up with Dr. Robins as outpatient for packing removal - Dr. Shimon Sadler PGY1 Incision and Drainage - Time Time Performed: 09:30 - Time Out Time Out: Side verified, Site verified, Patient ID confirmed, Sterile procedures obs. - Consent obtained Consent obtained: Written - Performed by Performed by: Mid-level Provider (Duplicating Machine Operator) - Indications Indications: Hematoma - Contraindications Contraindications: None - Location Location: Inferior (inefrior pole of midline abdominal incision) - Anesthetic Technique Anesthetic Technique: Local - Anesthetic Anesthetic: Lidocaine 2% - Procedure Procedure: Usual prep and drape, cm incision (1), Overlying area fluctuance, # scalpel used (11), Explored for loculations, Packed with sterile gauze - Drained Drained: ml blood (3) - Post-procedure Post procedure: Neurovascular status norm - Complications Complications: None - Patient tolerated procedure Patient tolerated procedure: Well <Landon Robins - Last Filed: 06/07/17 21:34> Results - Vital Signs Recent Vital Signs: Last Vital Signs Temp 97.3 F L 06/06/17 09:58 Pulse 57 L 06/06/17 09:58 Resp 20 06/06/17 09:58 BP 98/63 L 06/06/17 09:58 Pulse Ox 100 06/06/17 09:58 - Labs Result Diagrams: 06/06/17 08:49 06/06/17 08:49 Attending/Attestation - Attestation I have personally seen and examined this patient.: Yes I have fully participated in the care of the patient.: Yes I have reviewed all pertinent clinical information: Yes Notes (Text): 06/07/17 21:32 Pt was seen and examined at bedside Agree with above note and assessment except Pt with lower wound seroma/hematoma s/p Lap Sigmoidectomy PO antibiotics Drainage of hematoma/abscess at bedside consent local wound care f.u as out pt Plan d.w pt in detail. Risk and benefit explained in detail.
== END 2017-06-06 09:41 | disposition home or self-care (01) ==
LOC: C.ER 07:38 → C.9OBSV 08:00
PROVIDERS: ADMIT Emergency Medicine; ATTEND Emergency Medicine
DX: R10.12 Left upper quadrant pain (principal); E03.9 Hypothyroidism, unspecified; L03.90 Cellulitis, unspecified
CPT/HCPCS: 36415; 80048; 81001; 85025; 87070; 87086; 99285; G0378; J2405

== ENCOUNTER 2017-06-21 21:13 | Inpatient (IN) | payer SELFPAY ==
[2017-06-21 21:14] VITALS: BMI 27.3
[2017-06-21 22:08] LABS: BASO % 0.7 % (0.0-2.0); EOS # 0.3 K/uL (0.0-0.7); EOS % 4.3 % (0.0-4.0); HEMATOCRIT 35.6 % (34.0-47.0); LYMPH # 2.4 K/uL (1.0-4.3); LYMPH % 35.3 % (20.0-40.0); MEAN CELL VOLUME 93.9 fL (81.0-99.0); MEAN CORPUSCULAR HEMOGLOBIN 31.8 pg (27.0-31.0); MEAN CORPUSCULAR HGB CONC 33.9 g/dL (33.0-37.0); MEAN PLATELET VOLUME 8.5 fL (7.2-11.7); MONO # 0.5 K/uL (0.0-0.8); MONO % 7.1 % (0.0-10.0); NRBC % 0.1 % (0.0-2.0); RED CELL DISTRIBUTION WIDTH 13.3 % (11.5-14.5); WHITE BLOOD COUNT 6.9 K/uL (4.8-10.8)
--- NOTE | 2017-06-21 22:08 | C.PDOC ---
History Of Present Illness Patient is a 32 y/o female who presents to the ED with complaints of lower abdominal pain since three days ago and vomiting since two days ago. Patient notes PMHx of chronic constipation and redundant sigmoid; patient also notes PSHx of laparoscopic colectomy for constipation (05/17/17) She was seen in the ED and treated for a surgical wound hematoma (06/06/17). Since then, patient states wound healed with no problems. Patient admits to feeling nauseous currently; denies fever, chills, vaginal bleeding or discharge, or change in urination. Patient does admit to pain and vomiting. No other physical complaints at this time. Time Seen by Provider: 06/21/17 21:31 Chief Complaint (Nursing): Abdominal Pain History Per: Patient History/Exam Limitations: no limitations Onset/Duration Of Symptoms: Days (abdominal pain x3 days ago; vomiting x2 days ago. ) Current Symptoms Are (Timing): Still Present (nausea and abdominal pain present. ) Associated Symptoms: Nausea, Vomiting. denies: Fever, Chills, Urinary Symptoms Recent travel outside of the [place]: No Additional History Per: Patient Abnormal Vaginal Bleeding: No Past Medical History Reviewed: Historical Data, Nursing Documentation, Vital Signs Vital Signs: Last Vital Signs Temp 98.5 F 06/21/17 23:40 Pulse 56 L 06/21/17 23:40 Resp 18 06/21/17 23:40 BP 94/60 L 06/21/17 23:40 Pulse Ox 99 06/22/17 00:03 - Medical History PMH: Hyperthyroidism, Hypothyroidism, Migraine Denies: Chronic Kidney Disease Surgical History: Endoscopy - [facility] Procedures INSERT OF INFUSION PUMP INTO ABD SUBCU/FASCIA, PERC APPROACH (05/17/17) IRRIGATION OF LOWER GI USING IRRIGATING SUBSTANCE, ENDO (09/05/16) RESECTION OF RECTUM, PERCUTANEOUS ENDOSCOPIC APPROACH (05/17/17) RESECTION OF SIGMOID COLON, PERCUTANEOUS ENDOSCOPIC APPROACH (05/17/17) Family History: States: Unknown Family Hx - Social History Hx Tobacco Use: No Hx Alcohol Use: No Hx Substance Use: No - Immunization History Hx Tetanus Toxoid Vaccination: No Hx Influenza Vaccination: No Hx Pneumococcal Vaccination: No Review Of Systems Constitutional: Negative for: Fever, Chills Cardiovascular: Negative for: Chest Pain Respiratory: Negative for: Shortness of Breath Gastrointestinal: Positive for: Nausea, Vomiting, Abdominal Pain Genitourinary: Negative for: Dysuria, Frequency, Vaginal Discharge, Vaginal Bleeding Physical Exam - Physical Exam Appears: Well, Non-toxic, No Acute Distress Skin: Normal Color, Warm, Dry Head: Atraumatic, Normacephalic Oral Mucosa: Moist Chest: Symmetrical Cardiovascular: Rhythm Regular, No Murmur Respiratory: Normal Breath Sounds, No Rales, No Rhonchi, No Wheezing Gastrointestinal/Abdominal: Bowel Sounds (normal; no obstruction), Tenderness ( lower abdomen), Other (midline surgical incision from umbilicus downward) Neurological/Psych: Oriented x3, Normal Speech, Normal Cognition ED Course And Treatment - Laboratory Results Result Diagrams: 06/21/17 21:59 06/21/17 21:59 Lab Interpretation: No Acute Changes O2 Sat by Pulse Oximetry: 99 (room air) Pulse Ox Interpretation: Normal - Other Rad Obstructive series X-Ray: Interpreted by Me Interpretation: Distended colon with increased stool volume. No evidence of obstruction. Progress Note: Case discussed with the surgery resident. CT scan of abdomen and pelvis ordered. Reevaluation Time: 00:00 Reassessment Condition: Unchanged (still c/o lower abdominal pain with tenderness.) Medical Decision Making Medical Decision Making: Plan: EKG, obstructive series XR, UA, and blood work ordered. Disposition - Disposition Disposition Time: 00:14 Condition: FAIR Forms: [facility] (Erit[place]an) - Clinical Impression Clinical Impression: Abdominal pain - Scribe Statement The provider has reviewed the documentation as recorded by the Scribe Billie Burroughs All medical record entries made by the Scribe were at my direction and personally dictated by me. I have reviewed the chart and agree that the record accurately reflects my personal performance of the history, physical exam, medical decision making, and the department course for this patient. I have also personally directed, reviewed, and agree with the discharge instructions and disposition. Physician Patient Turnover Patient Signed Over To: Jhoan Bentlye Handoff Comments: pending CT scan and disposition.
[2017-06-21 22:12] LABS: CHLORIDE 103 mmol/L (98-107); SODIUM 138 mmol/L (132-148)
[2017-06-21 22:13] LABS: POTASSIUM 3.9 mmol/L (3.6-5.2)
[2017-06-21 22:15] LABS: ALB/GLOB RATIO 1.2 (1.0-2.1); ALKALINE PHOSPHATASE 58 U/L (38-126); ALT/SGPT 27 U/L (9-52); AST/SGOT 20 U/L (14-36); BILIRUBIN,TOTAL 0.5 mg/dL (0.2-1.3); BLOOD UREA NITROGEN 15 mg/dL (7-17); CARBON DIOXIDE 22 mmol/L (22-30); GFR AFRICAN-AMERICAN > 60; TOTAL PROTEIN 7.7 g/dL (6.3-8.3)
[2017-06-21 22:16] LABS: CALCIUM 8.8 mg/dl (8.6-10.4); GLUCOSE,RANDOM 83 mg/dL (65-105)
[2017-06-21 22:33] LABS: RBC URINE 1 /hpf (0-3); URINE BILIRUBIN NEGATIVE (NEGATIVE); URINE BLOOD NEGATIVE (NEGATIVE); URINE COLOR Yellow (YELLOW); URINE GLUCOSE (UA) NORMAL (Normal); URINE KETONE NEGATIVE (NEGATIVE); URINE LEUKOCYTE ESTERASE NEG Leu/uL (Negative); URINE PROTEIN NEGATIVE (NEGATIVE); WBC URINE 1 /hpf (0-5)
[2017-06-21] MEDS ORDERED: Iohexol 240 (50 ml) PO ONE (23:58)
[2017-06-22] MEDS ORDERED: Iohexol 240 (50 ml) ONE (00:02)
[2017-06-22] MEDS ORDERED: Iodixanol 320 MG/ML 100 ML BOTTLE IV ONE (03:10)
--- NOTE | 2017-06-22 04:34 | CT ---
EXAM: CT Abdomen and Pelvis With Intravenous Contrast EXAM DATE/TIME: 06/22/2017 3:09 AM CLINICAL HISTORY: 32 years old, female; Pain; Abdominal pain; Prior surgery; Surgery type: Abdominal surgery; Patient HX: 05-02-17. Images sent already TECHNIQUE: Axial computed tomography images of the abdomen and pelvis with intravenous contrast. All CT scans at this facility use one or more dose reduction techniques, viz.: automated exposure control; ma/kV adjustment per patient size (including targeted exams where dose is matched to indication; i.e. head); or iterative reconstruction technique. Coronal and sagittal reformatted images were created and reviewed. CONTRAST: 100 mL of [id number] administered intravenously. COMPARISON: Prior noncontrast CT abdomen and pelvis of 05/02/2017 FINDINGS: LOWER THORAX: Again seen is gastroesophageal reflux and dilatation of the distal esophagus. ABDOMEN: LIVER: 1.9 cm low-density lesion again seen in the liver, which does not appear to represent a cyst. This could represent a hemangioma, as it has a small focus of nodular peripheral enhancement, however, it is indeterminate in nature on this exam. This lesion could be further evaluated with followup nonemergent liver protocol CT or MRI, as clinically indicated. GALLBLADDER AND BILE DUCTS: No CT evidence of acute cholecystitis. No evidence of significant biliary ductal dilatation. PANCREAS: No CT evidence of acute pancreatitis. SPLEEN: Wedge-shaped area of decreased enhancement is seen in the spleen anteriorly, measuring 2.7 cm, suspicious for a splenic infarct. ADRENALS: No acute abnormality of the adrenal glands identified. KIDNEYS AND URETERS: No acute abnormality of the kidneys identified. No evidence of significant hydrouereteronephrosis. STOMACH AND BOWEL: Surgical suture line/surgical anatomosis is noted at the rectosigmoid junction. Mild to moderate dilatation of the colon is seen, from the cecum to to the proximal descending colon. There is a possible transition point at the level of the proximal to mid descending colon, image 90 of series 3, where there is a change in caliber of the colon, followed by a normal caliber to mildly decompressed distal left colon. No large obstructing colonic mass is visualized. There is no evidence of a complete large bowel obstruction. There is stool seen throughout the rectum and distal sigmoid colon, near the anastomosis. Otherwise, no significant abnormality of the bowel is identified. No acute abnormality of the stomach or duodenum identified. No evidence of small bowel obstruction. APPENDIX: Normal appendix is probably seen, 48-53 of series 601. No significant pericecal inflammatory changes are noted to suggest appendicitis. Recommend clinical correlation. PELVIS: BLADDER: No acute abnormality of the bladder identified. REPRODUCTIVE: Small 1.5 cm cystic lesion with a thin, enhancing and collapsed soft tissue rim in the left ovary. This has an appearance suggestive of a recently ruptured/involuting ovarian cyst, such as a corpus luteal cyst. Followup pelvic ultrasound as clinically indicated. No acute abnormality of the uterus identified. ABDOMEN and PELVIS: INTRAPERITONEAL SPACE: No evidence of free intraperitoneal air or fluid. BONES/JOINTS: No acute fractures or other acute bony abnormality noted. SOFT TISSUES: Extensive postoperative scarring involving the anterior pelvic wall in the midline, a new finding. Small midline ventral hernia containing fat, located just below to the umbilicus, at the upper margin of the post operative scarring. This is a new finding. No bowel herniation. VASCULATURE: No evidence of abdominal aortic aneurysm. No evidence of periaortic hemorrhage. LYMPH NODES: No evidence of diffuse lymphadenopathy. IMPRESSION: - Colonic dilatation. This could be due to either a diffuse colonic ileus or an incomplete large bowel obstruction. There is a possible transition point in the descending colon, as described. Recommend clinical correlation and further workup as clinically. - Otherwise, no evidence of significant acute process. - Gastroesophageal reflux and dilatation of the distal esophagus, also seen on a prior CT. - Findings suspicious for a small splenic infarct. - Small incidental indeterminate liver lesion. See above. - See above for remaining findings.
[2017-06-22] MEDS ORDERED: Sodium Chloride 0.9% 500 ML IV ONE ×2 (04:51→04:54)
[2017-06-22] MEDS ORDERED: Sodium Chloride 0.9% 1,000 ML IV ONE ×2 (04:51→08:09)
[2017-06-22] MEDS ORDERED: Sodium Chloride 0.9% 1,000 ML ONE (04:54)
[2017-06-22] MEDS: Sodium Chloride 0.9% 1,000 ML IV SCH ×2 (06:01→09:49)
--- NOTE | 2017-06-22 07:54 | CP.PCM.CON ---
<Natasha Fallon - Last Filed: 06/22/17 08:55> History of Present Illness - History of Present Illness History of Present Illness: GENERAL SURGERY CONSULT NOTE FOR DR. ROBINS 32yo F with PMHx of hypothyroidism, redundant sigmoid, slow transit constipation s/p sigmoid & superior rectal resection on 05/17/17 presents to the ED with abdominal pain and vomiting. The abdominal pain is diffuse and radiates to her chest and throat. The pain was mild for 2 days and then yesterday worsened. The pain is worse in the RLQ, LLQ and epigastric areas. She vomited 6- 7 times each day for the past 3 days. She states that everything she eats she vomits. She denies bloody emesis. She reports that her bowel movements are normal. Since her surgery, her constipation has resolved. Her last BM was 1 hour ago. She is unsure when she last passed flatus. She also continues to complain of feeling like something is stuck in her throat. She has been evaluated by GI in the past. Had EGD 11/25 which showed gastritis and colonoscopy 05/27 which showed poor prep and internal hemorrhoids. She also reports CP and SOB at night. She feels like phlegm is stuck in her throat. She reports constant "burning in her throat" which is unchanged by eating. PMHx: hypothyroidism, redundant sigmoid, slow transit constipation which failed numerous outpatient constipation therapies, dysphagia Surgeries: laparoscopic sigmoid and superior rectal resection, splenic flexure mobilization 05/17/[address] Robins Allergies: none Social history: denies illicit drug use or smoking, social etoh Review of Systems - Review of Systems All systems: reviewed and no additional remarkable complaints except (as per HPI ) Past Patient History - Infectious Disease Hx of Infectious Diseases: None - Past Medical History & Family History Past Medical History?: Yes - Past Social History Smoking Status: Never Smoked - CARDIAC Hx Cardiac Disorders: No - PULMONARY Hx Respiratory Disorders: No - NEUROLOGICAL Hx Migraine: Yes - HEENT Hx HEENT Problems: No - RENAL Hx Chronic Kidney Disease: No - ENDOCRINE/METABOLIC Hx Hyperthyroidism: Yes Hx Hypothyroidism: Yes - HEMATOLOGICAL/ONCOLOGICAL Hx Blood Disorders: No - INTEGUMENTARY Hx Dermatological Problems: No - MUSCULOSKELETAL/RHEUMATOLOGICAL Hx Falls: No - GASTROINTESTINAL Hx Gastrointestinal Disorders: Yes Other/Comment: CHRONIC CONSTIPATION, POSSIBLE ESPHAGEAL STRICTURE BY CT SCAN. - GENITOURINARY/GYNECOLOGICAL Hx Genitourinary Disorders: No - PSYCHIATRIC Hx Substance Use: No - SURGICAL HISTORY Hx Surgeries: Yes Other/Comment: ABDOMEN SX may 17, 2017 - ANESTHESIA Hx Anesthesia: Yes Hx Anesthesia Reactions: No Meds Allergies/Adverse Reactions: Allergies Allergy/AdvReac Type Severity Reaction Status Date / Time No Known Allergies Allergy Verified 06/06/17 07:43 - Medications Medications: Current Medications Sodium Chloride (Sodium Chloride 0.9%) 1,000 mls @ 100 mls/hr IV .Q10H ONE Stop: 06/22/17 14:50 Last Admin: 06/22/17 04:58 Dose: 100 mls/hr Sodium Chloride (Sodium Chloride 0.9%) 1,000 mls @ 100 mls/hr IV .Q10H [facility] Last Admin: 06/22/17 06:01 Dose: Not Given Morphine Sulfate (Morphine) 2 mg IVP Q4 PRN PRN Reason: Pain, moderate (4-7) Ondansetron HCl (Zofran Inj) 4 mg IVP PRN PRN PRN Reason: Nausea/Vomiting Pantoprazole Sodium (Protonix Inj) 40 mg IVP DAILY [facility] Physical Exam - Constitutional Appears: Well, Non-toxic, No Acute Distress - Head Exam Head Exam: ATRAUMATIC, NORMAL INSPECTION - Eye Exam Eye Exam: EOMI, Normal appearance - Respiratory Exam Respiratory Exam: NORMAL BREATHING PATTERN. absent: Respiratory Distress - Cardiovascular Exam Cardiovascular Exam: +S1, +S2 - GI/Abdominal Exam GI & Abdominal Exam: Soft, Tenderness (tender in RLQ, LLQ, epigastric area). absent: Distended, Firm, Guarding, Hernia, Rebound, Rigid - Neurological Exam Neurological exam: Alert, CN II-XII Intact, Oriented x3 - Psychiatric Exam Psychiatric exam: Normal Affect, Normal Mood - Skin Skin Exam: Dry, Normal Color, Warm Results - Vital Signs Recent Vital Signs: Last Vital Signs Temp 99.8 F H 06/22/17 06:42 Pulse 54 L 06/22/17 06:42 Resp 14 06/22/17 06:42 BP 92/57 L 06/22/17 06:42 Pulse Ox 98 06/22/17 06:42 - Labs Result Diagrams: 06/21/17 21:59 06/21/17 21:59 Labs: Laboratory Results - last 24 hr 06/21/17 06/21/17 06/21/17 21:59 21:59 22:16 WBC 6.9 RBC 3.79 L Hgb 12.1 Hct 35.6 MCV 93.9 MCH 31.8 H MCHC 33.9 RDW 13.3 Plt Count 236 D MPV 8.5 Neut % (Auto) 52.6 Lymph % (Auto) 35.3 [place] % (Auto) 7.1 Eos % (Auto) 4.3 H Baso % (Auto) 0.7 Neut # 3.6 Lymph # 2.4 Ida # 0.5 Eos # 0.3 Baso # 0.0 Sodium 138 Potassium 3.9 Chloride 103 Carbon Dioxide 22 Anion Gap 17 BUN 15 Creatinine 0.6 L Est GFR ( Amer) > 60 Est GFR (Non-Af Amer) > 60 Random Glucose 83 Calcium 8.8 Total Bilirubin 0.5 AST 20 ALT 27 Alkaline Phosphatase 58 Total Protein 7.7 Albumin 4.2 Globulin 3.6 Albumin/Globulin Ratio 1.2 Lipase 103 Urine Color Yellow Urine Clarity Clear Urine pH 7.0 Ur Specific [place] 1.028 Urine Protein Negative Urine Glucose (UA) Normal Urine Ketones Negative Urine Blood Negative Urine Nitrate Negative Urine Bilirubin Negative Urine Urobilinogen 4.0 H Ur Leukocyte Esterase Neg Urine WBC (Auto) 1 Urine RBC (Auto) 1 Ur Squamous Epith Cells 4 Urine HCG, Qual Negative Assessment & Plan - Assessment and Plan (Free Text) Assessment: 32yo F with PMHx of hypothyroidism, redundant sigmoid, slow transit constipation s/p sigmoid & superior rectal resection on 05/17/17 presents with abdominal pain and vomiting. - Temp 100.1 - Labs WNL - CT: colonic dilation- could be either diffuse colonic ileus or incomplete large bowel obstruction, possible transition point in descending colon; gastroesophageal reflux and dilation of distal esophagus - Clinically not obstructed - NPO - IV Fluids - Zofran and morphine PRN - Protonix - Discussed plan with Dr. Shimon Fallon PGY-3 <Landon Robins - Last Filed: 06/22/17 21:20> Meds - Medications Medications: Current Medications Sodium Chloride (Sodium Chloride 0.9%) 1,000 mls @ 100 mls/hr IV .Q10H [facility] Last Admin: 06/22/17 09:49 Dose: 100 mls/hr Morphine Sulfate (Morphine) 2 mg IVP Q4 PRN PRN Reason: Pain, moderate (4-7) Ondansetron HCl (Zofran Inj) 4 mg IVP Q6H PRN PRN Reason: Nausea/Vomiting Pantoprazole Sodium (Protonix Inj) 40 mg IVP DAILY [facility] Last Admin: 06/22/17 09:08 Dose: 40 mg Sucralfate (Carafate Oral Susp) 1 gm PO ACBHS [facility] Results - Vital Signs Recent Vital Signs: Last Vital Signs Temp 98.5 F 06/22/17 15:12 Pulse 52 L 06/22/17 15:12 Resp 18 06/22/17 15:12 BP 88/52 L 06/22/17 15:12 Pulse Ox 99 06/22/17 15:12 - Labs Result Diagrams: 06/21/17 21:59 06/21/17 21:59 Labs: Laboratory Results - last 24 hr 06/21/17 06/21/17 06/21/17 21:59 21:59 22:16 WBC 6.9 RBC 3.79 L Hgb 12.1 Hct 35.6 MCV 93.9 MCH 31.8 H MCHC 33.9 RDW 13.3 Plt Count 236 D MPV 8.5 Neut % (Auto) 52.6 Lymph % (Auto) 35.3 Ida % (Auto) 7.1 Eos % (Auto) 4.3 H Baso % (Auto) 0.7 Neut # 3.6 Lymph # 2.4 Ida # 0.5 Eos # 0.3 Baso # 0.0 PT INR Sodium 138 Potassium 3.9 Chloride 103 Carbon Dioxide 22 Anion Gap 17 BUN 15 Creatinine 0.6 L Est GFR ( Amer) > 60 Est GFR (Non-Af Amer) > 60 Random Glucose 83 Calcium 8.8 Total Bilirubin 0.5 AST 20 ALT 27 Alkaline Phosphatase 58 Total Protein 7.7 Albumin 4.2 Globulin 3.6 Albumin/Globulin Ratio 1.2 Lipase 103 TSH 3rd Generation Urine Color Yellow Urine Clarity Clear Urine pH 7.0 Ur Specific [place] 1.028 Urine Protein Negative Urine Glucose (UA) Normal Urine Ketones Negative Urine Blood Negative Urine Nitrate Negative Urine Bilirubin Negative Urine Urobilinogen 4.0 H Ur Leukocyte Esterase Neg Urine WBC (Auto) 1 Urine RBC (Auto) 1 Ur Squamous Epith Cells 4 Urine HCG, Qual Negative 06/22/17 06/22/17 11:35 11:35 WBC RBC Hgb Hct MCV MCH MCHC RDW Plt Count MPV Neut % (Auto) Lymph % (Auto) Ida % (Auto) Eos % (Auto) Baso % (Auto) Neut # Lymph # Ida # Eos # Baso # PT 13.2 H INR 1.2 Sodium Potassium Chloride Carbon Dioxide Anion Gap BUN Creatinine Est GFR ( Amer) Est GFR (Non-Af Amer) Random Glucose Calcium Total Bilirubin AST ALT Alkaline Phosphatase Total Protein Albumin Globulin Albumin/Globulin Ratio Lipase TSH 3rd Generation 7.94 H Urine Color Urine Clarity Urine pH Ur Specific [place] Urine Protein Urine Glucose (UA) Urine Ketones Urine Blood Urine Nitrate Urine Bilirubin Urine Urobilinogen Ur Leukocyte Esterase Urine WBC (Auto) Urine RBC (Auto) Ur Squamous Epith Cells Urine HCG, Qual Attending/Attestation - Attestation I have personally seen and examined this patient.: Yes I have fully participated in the care of the patient.: Yes I have reviewed all pertinent clinical information: Yes Notes (Text): 06/22/17 21:19 Pt was seen and examined at bedside Agree with above note and assessment Pt has multiple bowel movements Upper abdominal pain due to gastritis serial abdominal exam PPI, Pepcid Plan d.w pt in detail.
--- NOTE | 2017-06-22 08:28 | RAD ---
PROCEDURE: Radiographs of the chest and abdomen (obstructive series) HISTORY: abd pain s/p bowel resection 05/2017 COMPARISON: CT abdomen and pelvis 05/02/2017 TECHNIQUE: AP radiograph of the chest, with upright and supine radiographs of the abdomen. FINDINGS: CHEST: Lungs: Clear. Cardiovascular: Normal size heart. No pulmonary vascular congestion. Pleura: No pleural fluid. No pneumothorax. Other findings: None. ABDOMEN AND PELVIS: Bowel: Right colonic stool retention noted. Splenic its proximal descending colonic loops are distended -similar loop is distended on the wreath machine operator CT 05/02/2017 study.. A potential incomplete and/or intermittent mild obstruction mid descending colon is a consideration. No small bowel dilatation noted Free air: None. Bones: Unremarkable. Other findings: None. IMPRESSION: Similar splenic flexure loop of moderate gaseous distension - similar pattern per CT wreath machine operator image 05/02/2017. As noted previously, a mid descending colonic transition point and/or intermittent incomplete colonic obstruction here is a consideration. No complete obstruction. No high-grade partial obstruction now suggested. Continued close follow-up recommended. No current small-bowel distention suggested Right colonic stool retention
--- NOTE | 2017-06-22 10:22 | CP.PCM.HP ---
<Vandana Cuevas - Last Filed: 06/22/17 19:47> History of Present Illness - History of Present Illness History of Present Illness: History and physical for Dr. Ugalde 32F with PMHx of hypothyroidism and partial sigmoidectomy lower anterior resection with anastomosis, presents to the ED with abdominal pain for 3-4 days. Patient states that when the pain gets worse, she becomes short of breath. Patient describes the pain as a sharp, cramping pain and rates the pain as 8/10. Patient stated she started having nausea and vomiting yesterday. Patient tried to eat at 9pm the night before and vomited; pt has not eaten since then. Patient stated she has had a bowel movement at 10pm the night before and it was normal in color and solid. Patient admits to having a history of constipation and did not want to take morphine because she was afraid it would make things worse. Patient denied chest pain, headache, fever, chills, diarrhea, dysuria, hematuria, and hematochezia Medications: Levothyroxine 100mg and Colace PMH: hypothyroidism, GERD PSH: Surgical HX: Partial sigmoidectomy lower anterior resection with anastomosis 1 month ago (Dr. Robins) Medical Hx: Hypothyroidism, GERD Social HX: Denies smoking, not currently ETOH use, but used to drink at [employer] " Denies illicit drug use Family HX: Lung cancer Allergies: NKDA Present on Admission - Present on Admission Any Indicators Present on Admission: No History of DVT/PE: No History of Uncontrolled Diabetes: No Urinary Catheter: No Decubitus Ulcer Present: No Past Patient History - Infectious Disease Hx of Infectious Diseases: None - Past Medical History & Family History Past Medical History?: Yes - Past Social History Smoking Status: Never Smoked - CARDIAC Hx Cardiac Disorders: No - PULMONARY Hx Respiratory Disorders: No - NEUROLOGICAL Hx Migraine: Yes - HEENT Hx HEENT Problems: No - RENAL Hx Chronic Kidney Disease: No - ENDOCRINE/METABOLIC Hx Hypothyroidism: Yes - HEMATOLOGICAL/ONCOLOGICAL Hx Blood Disorders: No - INTEGUMENTARY Hx Dermatological Problems: No - MUSCULOSKELETAL/RHEUMATOLOGICAL Hx Falls: No - GASTROINTESTINAL Hx Gastrointestinal Disorders: Yes Other/Comment: CHRONIC CONSTIPATION - GENITOURINARY/GYNECOLOGICAL Hx Genitourinary Disorders: No - PSYCHIATRIC Hx Substance Use: No - SURGICAL HISTORY Hx Surgeries: Yes Other/Comment: ABDOMEN SX sept 6, 2017 - ANESTHESIA Hx Anesthesia: Yes Hx Anesthesia Reactions: No Meds Allergies/Adverse Reactions: Allergies Allergy/AdvReac Type Severity Reaction Status Date / Time No Known Allergies Allergy Verified 06/06/17 07:43 Physical Exam - Constitutional Appears: Non-toxic - Head Exam Head Exam: NORMAL INSPECTION - Eye Exam Eye Exam: EOMI, Normal appearance - ENT Exam ENT Exam: Mucous Membranes Moist - Neck Exam Neck exam: Positive for: Full Rom - Respiratory Exam Respiratory Exam: Clear to Auscultation Bilateral, NORMAL BREATHING PATTERN. absent: Accessory Muscle Use - Cardiovascular Exam Cardiovascular Exam: REGULAR RHYTHM, +S1, +S2 - GI/Abdominal Exam GI & Abdominal Exam: Guarding (LLQ guarding, no rebound. tenderness to deep and light palpation ), Normal Bowel Sounds, Soft, Tenderness Additional comments: midepigastric tenderness as well, but LLQ is most painful - Extremities Exam Extremities exam: Positive for: full ROM, normal inspection. Negative for: pedal edema - Back Exam Back exam: FULL ROM, NORMAL INSPECTION. absent: tenderness - Neurological Exam Neurological exam: Alert, Normal Gait, Oriented x3 - Psychiatric Exam Psychiatric exam: Normal Affect, Normal Mood - Skin Skin Exam: Dry, Intact, Normal Color, Warm Results - Vital Signs Recent Vital Signs: Last Vital Signs Temp 99.4 F 06/22/17 09:11 Pulse 65 06/22/17 09:50 Resp 18 06/22/17 09:11 BP 98/59 L 06/22/17 09:50 Pulse Ox 96 06/22/17 09:11 - Labs Result Diagrams: 06/21/17 21:59 06/21/17 21:59 Labs: Laboratory Results - last 24 hr 06/21/17 06/21/17 06/21/17 21:59 21:59 22:16 WBC 6.9 RBC 3.79 L Hgb 12.1 Hct 35.6 MCV 93.9 MCH 31.8 H MCHC 33.9 RDW 13.3 Plt Count 236 D MPV 8.5 Neut % (Auto) 52.6 Lymph % (Auto) 35.3 Alpine % (Auto) 7.1 Eos % (Auto) 4.3 H Baso % (Auto) 0.7 Neut # 3.6 Lymph # 2.4 Alpine # 0.5 Eos # 0.3 Baso # 0.0 Sodium 138 Potassium 3.9 Chloride 103 Carbon Dioxide 22 Anion Gap 17 BUN 15 Creatinine 0.6 L Est GFR ( Amer) > 60 Est GFR (Non-Af Amer) > 60 Random Glucose 83 Calcium 8.8 Total Bilirubin 0.5 AST 20 ALT 27 Alkaline Phosphatase 58 Total Protein 7.7 Albumin 4.2 Globulin 3.6 Albumin/Globulin Ratio 1.2 Lipase 103 Urine Color Yellow Urine Clarity Clear Urine pH 7.0 Ur Specific Thompson 1.028 Urine Protein Negative Urine Glucose (UA) Normal Urine Ketones Negative Urine Blood Negative Urine Nitrate Negative Urine Bilirubin Negative Urine Urobilinogen 4.0 H Ur Leukocyte Esterase Neg Urine WBC (Auto) 1 Urine RBC (Auto) 1 Ur Squamous Epith Cells 4 Urine HCG, Qual Negative Assessment & Plan - Assessment and Plan (Free Text) Assessment: 1)partial large bowel obstruction versus colonic ileus Per surgery Team DR. Robins: Patient is Clinically not obstructed - CT Abdomen/Pelvis: colonic dilation with possible transition point in descending colon; gastroesophageal reflux and dilation of distal esophagus monitor CBC, CMP monitor BM monitor I/Os 2)Hypothyroidism TSH 7.94 monitor vitals Hypotension IV Fluids NS 100cc/hr Patient was hypotensive at time of admission, patient was given 1 L bolus monitor vitals Diet: NPO Nausea: Zofran Pain: Morphine PRN Prophylaxis: GI Protonix SCDs discussed with Dr. Aftab Cuveas DO PGY1 - Date & Time Date: 06/22/17 Time: 12:30 <Gloria Ugalde V - Last Filed: 06/25/17 15:49> Results - Vital Signs Recent Vital Signs: Last Vital Signs Temp 97.2 F L 06/24/17 08:00 Pulse 67 06/24/17 12:00 Resp 20 06/24/17 08:00 BP 92/58 L 06/24/17 08:00 Pulse Ox 99 06/24/17 08:00 - Labs Result Diagrams: 06/25/17 08:22 06/25/17 08:22 Labs: Laboratory Results - last 24 hr 06/23/17 06/24/17 06/24/17 12:55 07:03 07:03 WBC 8.7 D RBC 3.34 L Hgb 10.7 L Hct 31.2 L MCV 93.5 MCH 32.1 H MCHC 34.3 RDW 13.0 Plt Count 221 MPV 8.7 Neut % (Auto) 70.5 Lymph % (Auto) 21.5 Alpine % (Auto) 6.5 Eos % (Auto) 1.1 Baso % (Auto) 0.4 Neut # 6.1 Lymph # 1.9 Alpine # 0.6 Eos # 0.1 Baso # 0.0 Sodium 136 Potassium 3.3 L Chloride 105 Carbon Dioxide 17 L Anion Gap 17 BUN 8 Creatinine 0.5 L Est GFR ( Amer) > 60 Est GFR (Non-Af Amer) > 60 POC Glucose (mg/dL) Random Glucose 53 L Calcium 8.2 L Magnesium 1.8 Total Bilirubin 0.6 AST 14 D ALT 28 Alkaline Phosphatase 58 CK-MB (Mass) < 0.22 Troponin I, Quant < 0.0120 Total Protein 6.8 Albumin 3.3 L D Globulin 3.5 Albumin/Globulin Ratio 0.9 L 06/24/17 06/24/17 06/24/17 09:53 10:12 11:51 WBC RBC Hgb Hct MCV MCH MCHC RDW Plt Count MPV Neut % (Auto) Lymph % (Auto) Alpine % (Auto) Eos % (Auto) Baso % (Auto) Neut # Lymph # Alpine # Eos # Baso # Sodium Potassium Chloride Carbon Dioxide Anion Gap BUN Creatinine Est GFR ( Amer) Est GFR (Non-Af Amer) POC Glucose (mg/dL) 52 L 288 H 132 H Random Glucose Calcium Magnesium Total Bilirubin AST ALT Alkaline Phosphatase CK-MB (Mass) Troponin I, Quant Total Protein Albumin Globulin Albumin/Globulin Ratio Attending/Attestation - Attestation I have personally seen and examined this patient.: Yes I have fully participated in the care of the patient.: Yes I have reviewed all pertinent clinical information: Yes Notes (Text): This is late computer entry for 06/22/17. Patient seen, examined and case discussed with day-time resident. Patient seen in [facility] in ED on 06/22/17. Patient known to me from last hospital admission during slow transit constipation who has now underwent partial sigmoidectomy lower anterior resection w anastomosis 1 month comes in for lower abdominal pain and nausea, but no further episodes of vomitting Discussed admitting orderes with day-time resident General surgery on board NPO IV fluids Anti-emetic PRN held narcotic given slow transit constipation Held thryoid medication given NPO status Assessment/Plan: (1) Large Bowel Obstruction * Hx of redundant sigmoind, slow transit constipation * s/p partial sigmoidectomy lower anterior resection w anastomosis 1 month prior * General surgery (Dr Robins) on consult * CT Abdomen/Pelvis (06/22/17): similar splenic flexure loop of moderate gaseous distension- smilar pattern per CT general counsel image 05/02/17.Mid descending colonic transition point and/or intermittent incomplete colonic obstruction here is a consideration. no complete obstruction. No high grade partial obstruction now suggested. Continued close follow-up recommended. No current small bowel distention suggested. Right colonic stool retention * Surgery advises no ngt tube placement unless patient vomits. * Held Morphine secondary to worsening constipation * Patient is NPO * IV fluids * Zofran 4mg IV Q 6h PRN nausea * Protonix 40mg IV q daily Status: Acute (2) Hypothyroidism Assessment and Plan: * Hold PO medication given NPO status Status: Chronic (3) Hypotension Assessment and Plan: * Given fluid bolus * NS 100cc/hr following bolus Status: Chronic (4) GERD Assessment and Plan: * Protonix 40mg IV q daily Status: Chronic (5) Prophylactic measure Assessment and Plan: * SCDs * Protonix 40mg IV q daily * Cont to monitor for BMs Status: Acute
[2017-06-22 11:49] LABS: INR 1.2
--- NOTE | 2017-06-22 13:02 | CARD ---
APPROVED REPORT EKG Measurement Heart [id number] HI [id number] [id number] <Conclusion> Normal sinus rhythm Cannot rule out Inferior infarct, age undetermined Abnormal ECG
[2017-06-22] MEDS: Sucralfate 1 gm/10 ml Oral Susp UD PO SCH (23:16)
[2017-06-23] MEDS: Sodium Chloride 0.9% 1,000 ML IV SCH ×3 (04:38→22:08)
[2017-06-23 06:30] LABS: BASO % 0.7 % (0.0-2.0); EOS # 0.3 K/uL (0.0-0.7); EOS % 4.6 % (0.0-4.0); HEMATOCRIT 26.9 % (34.0-47.0); LYMPH # 2.5 K/uL (1.0-4.3); LYMPH % 44.7 % (20.0-40.0); MEAN CELL VOLUME 93.7 fL (81.0-99.0); MEAN CORPUSCULAR HGB CONC 34.2 g/dL (33.0-37.0); MEAN PLATELET VOLUME 8.6 fL (7.2-11.7); MONO # 0.5 K/uL (0.0-0.8); RED CELL DISTRIBUTION WIDTH 12.9 % (11.5-14.5); WHITE BLOOD COUNT 5.7 K/uL (4.8-10.8)
[2017-06-23] MEDS: Sucralfate 1 gm/10 ml Oral Susp UD PO SCH ×2 (06:31→22:08)
[2017-06-23 07:30] LABS: CHLORIDE 105 mmol/L (98-107); POTASSIUM 3.3 mmol/L (3.6-5.2); SODIUM 134 mmol/L (132-148)
[2017-06-23 07:32] LABS: ALB/GLOB RATIO 0.9 (1.0-2.1); ALKALINE PHOSPHATASE 49 U/L (38-126); AST/SGOT 20 U/L (14-36); BILIRUBIN,TOTAL 0.5 mg/dL (0.2-1.3); CARBON DIOXIDE 21 mmol/L (22-30); GFR AFRICAN-AMERICAN > 60; TOTAL PROTEIN 5.7 g/dL (6.3-8.3)
[2017-06-23 07:33] LABS: ALT/SGPT 25 U/L (9-52); BLOOD UREA NITROGEN 5 mg/dL (7-17); CALCIUM 7.7 mg/dl (8.6-10.4); GLUCOSE,RANDOM 73 mg/dL (65-105)
[2017-06-23] MEDS ORDERED: Sodium Chloride 0.9% 1,000 ML IV ONE (08:08)
--- NOTE | 2017-06-23 09:16 | CP.PCM.PN ---
Addendum entered and electronically signed by Vandana Cuevas DO 06/23/17 18:54: NGT placed ICWS @ 160mmHg I/Os monitor NGT output monitor BM Original Note: <Vandana Cuevas - Last Filed: 06/23/17 12:49> Subjective - Date & Time of Evaluation Date of Evaluation: 06/23/17 Time of Evaluation: 09:14 - Subjective Subjective: Progress Note for Dr. Ugalde Patient is bradycardic and hypotensive. Patient appears clinically stable at bedside. Patient states she is doing well and admits to two bowel movements overnight. surgery team started patient on clear liquid diet. Patient states she vomited twice overnight. Patient denies, chest pain, dizziness. Patient denies hematochezia. Patient admits to eructation and some flatus. Objective - Vital Signs/Intake and Output Vital Signs (last 24 hours): Temp Pulse Resp BP Pulse Ox 97.6 F 101 H 20 135/85 97 06/23/17 07:35 06/23/17 07:35 06/23/17 07:35 06/23/17 07:35 06/23/17 07:35 Intake and Output: 06/23/17 06/23/17 06:59 18:59 Intake Total 800 Balance 800 - Medications Medications: Current Medications Sodium Chloride (Sodium Chloride 0.9%) 1,000 mls @ 100 mls/hr IV .Q10H FOR[facility]LY [facility], [facility] Last Admin: 06/23/17 04:38 Dose: 100 mls/hr Morphine Sulfate (Morphine) 2 mg IVP Q4 PRN PRN Reason: Pain, moderate (4-7) Ondansetron HCl (Zofran Inj) 4 mg IVP Q6H PRN PRN Reason: Nausea/Vomiting Pantoprazole Sodium (Protonix Inj) 40 mg IVP DAILY FOR[facility]LY [facility], [facility] Last Admin: 06/22/17 09:08 Dose: 40 mg Sucralfate (Carafate Oral Susp) 1 gm PO ACBHS [facility], [facility] Last Admin: 06/23/17 06:31 Dose: Not Given - Labs Labs: 06/23/17 06:19 06/23/17 06:19 PT 13.2 SECONDS (9.7-12.2) H 06/22/17 11:35 INR 1.2 06/22/17 11:35 - Constitutional Appears: Non-toxic - Head Exam Head Exam: NORMAL INSPECTION - Eye Exam Eye Exam: EOMI, Normal appearance - ENT Exam ENT Exam: Mucous Membranes Moist - Neck Exam Neck Exam: Full ROM - Respiratory Exam Respiratory Exam: Clear to Ausculation Bilateral, NORMAL BREATHING PATTERN. absent: Accessory Muscle Use - Cardiovascular Exam Cardiovascular Exam: Bradycardia, REGULAR RHYTHM, +S1, +S2 - GI/Abdominal Exam GI & Abdominal Exam: Soft, Normal Bowel Sounds. absent: Tenderness - Extremities Exam Extremities Exam: Full ROM, Normal Inspection. absent: Pedal Edema - Neurological Exam Neurological Exam: Alert, Awake, Oriented x3 - Psychiatric Exam Psychiatric exam: Normal Affect, Normal Mood - Skin Skin Exam: Dry, Intact, Normal Color Assessment and Plan - Assessment and Plan (Free Text) Assessment: Endocrine consult: Dr. Atkinson patient had status changed to telemetry. Assessment: 1)partial large bowel obstruction versus colonic ileus Per surgery Team DR. Robins: Patient is Clinically not obstructed - CT Abdomen/Pelvis: colonic dilation with possible transition point in descending colon; gastroesophageal reflux and dilation of distal esophagus monitor CBC, CMP 06/23 2 BM overnight monitor I/Os Diet: clear liquid diet by surgery team 2)Hypothyroidism TSH 7.94 monitor vitals Endocrinology consult: Dr. Atkinson -follow up recommendations Hypotension IV Fluids NS 100cc/hr Patient was hypotensive at time of admission, patient was given 1 L bolus monitor vitals Diet: NPO Nausea: Zofran Pain: Morphine PRN Prophylaxis: GI Protonix SCDs discussed with Dr. Aftab Cuevas, DO PGY1 <Gloria Ugalde V - Last Filed: 06/25/17 16:00> Objective - Vital Signs/Intake and Output Vital Signs (last 24 hours): Temp Pulse Resp BP Pulse Ox 98.8 F 59 L 20 110/73 99 06/25/17 08:39 06/25/17 08:39 06/25/17 08:39 06/25/17 08:39 06/25/17 08:39 Intake and Output: 06/25/17 06/25/17 06:59 18:59 Intake Total 1650 700 Output Total 120 Balance 1530 700 - Medications Medications: Current Medications Docusate Sodium (Colace) 100 mg PO TID [facility] Last Admin: 06/25/17 13:13 Dose: 100 mg Levothyroxine Sodium 75 mcg/ (Sodium Chloride) 6.25 mls @ 0 mls/hr IVP Q24H STEVEN PRN Reason: Per Protocol Morphine Sulfate (Morphine) 2 mg IVP Q4 PRN PRN Reason: Pain, moderate (4-7) Ondansetron HCl (Zofran Inj) 4 mg IVP Q6H PRN PRN Reason: Nausea/Vomiting Last Admin: 06/24/17 03:32 Dose: 4 mg Pantoprazole Sodium (Protonix Inj) 40 mg IVP DAILY [facility] Last Admin: 06/25/17 10:02 Dose: 40 mg Sucralfate (Carafate Oral Susp) 1 gm PO ACBHS STEVEN Last Admin: 06/25/17 07:02 Dose: 1 gm - Labs Labs: 06/25/17 08:22 06/25/17 08:22 PT 13.2 SECONDS (9.7-12.2) H 06/22/17 11:35 INR 1.2 06/22/17 11:35 Attending/Attestation - Attestation I have personally seen and examined this patient.: Yes I have fully participated in the care of the patient.: Yes I have reviewed all pertinent clinical information, including history, physical exam and plan: Yes Notes (Text): This is late computer entry for 06/23/17. Patient seen, examined and case discussed with day-time resident. Patient was bradycardic: 40s with SBP: 80s. Patient placed on telemetry. patient given fluid bolus given hypotension. Patient's TSH was elevated on 7.94. Monitor H/H; Drop in 12-->9 but I believe its dilutional EKG shows sinus bradycardia, patient is asymptomatic-->denies lightheadedness, denies dizziness. Patient reports burping and flatus Patient reports she threw up later in the day. financial institution president placed NGT tube in the evening. Chest xray ordered to confirm placement. Patient is noncompliant on her thyroid medication Endocrinology consult help appreciated CARLA X3: negative Assessment/Plan (1) Large Bowel Obstruction * Hx of redundant sigmoind, slow transit constipation * s/p partial sigmoidectomy lower anterior resection w anastomosis 1 month prior * s/p NGT tube placement on 06/23/17 * General surgery (Dr Robins) on consult * CT Abdomen/Pelvis (06/22/17): similar splenic flexure loop of moderate gaseous distension- smilar pattern per CT keyboard operator image 05/02/17.Mid descending colonic transition point and/or intermittent incomplete colonic obstruction here is a consideration. no complete obstruction. No high grade partial obstruction now suggested. Continued close follow-up recommended. No current small bowel distention suggested. Right colonic stool retention * Surgery advises no ngt tube placement unless patient vomits. * Held Morphine secondary to worsening constipation * Patient is NPO * IV fluids * Zofran 4mg IV Q 6h PRN nausea * Protonix 40mg IV q daily Status: Acute (2) Hypothyroidism Assessment and Plan: * Endocrinology (Dr. Atkinson) on consult-->help appreciated * Hold PO medication given NPO status * TSH elevated Status: Chronic (3) Hypotension Assessment and Plan: * Given fluid bolus * NS 100cc/hr following bolus * monitor vital signs Status: Chronic (4) GERD Assessment and Plan: * Protonix 40mg IV q daily Status: Chronic (5) Prophylactic measure Assessment and Plan: * SCDs * Protonix 40mg IV q daily * Cont to monitor for BMs Status: Acute
[2017-06-23] MEDS: Potassium Chloride 20 mEq/15 ml LIQ UD PO ONE ×2 (09:32→10:22)
[2017-06-23] MEDS ORDERED: Levothyroxine 200 mcg (0.2 mg) Inj IVP SCH (10:00)
[2017-06-23] MEDS: Potassium Chloride 20 mEq ER Tab PO SCH ×2 (10:39→13:56)
[2017-06-23 12:06] LABS: T4 5.09 ug/dL (5.5-11.0)
[2017-06-23 12:07] LABS: FT3 1.86 pg/mL (2.77-5.27)
--- NOTE | 2017-06-23 14:09 | CON ---
DATE: ENDOCRINOLOGY CONSULT LOCATION: Room 664 HISTORY OF PRESENT ILLNESS: This a 32-year-old female with recent partial sigmoidectomy and lower anterior resection, presenting her with diffuse abdominal pain and associated nausea, dyspepsia, and vomiting and has been evaluated to have large bowel obstruction and is being referred now for endocrine evaluation because of hypothyroidism. PAST MEDICAL HISTORY: History of hypothyroidism currently on levothyroxine replacement therapy the exact dose is not known by the patient at this time, history of hypertension and dyslipidemia, history of a prior partial sigmoidectomy as mentioned and this was about a month ago undertaken by Dr. Robins. FAMILY HISTORY: Positive for hypertension and heart disease. SOCIAL HISTORY: The patient has supportive family. No know substance use. REVIEW OF SYSTEMS: As mentioned above. Admits to generalized body weakness with easy fatigability and tiredness and suboptimal energy level. No chest pain, palpitations, or PNDs. Her oral intake has been suboptimal because of supervening nausea, dyspepsia, and vomiting episode with progressively worsening diffuse abdominal pain as noted. Also admits to about 20 pound or more weight loss in the last month or so prior to admission. PHYSICAL EXAMINATION GENERAL: This is an female, in no apparent distress. VITAL SIGNS: Blood pressure 140/80, pulse of 100 beats per minute and regular, temperature 98, respirations 20, height is 4 feet 11 inches, and weight is 112 pounds. HEENT: Head is normocephalic. Eyes, anicteric with pink conjunctivae. Funduscopy is not possible at this time. Ears, nose, and throat otherwise normal. NECK: Supple. Thyroid glands is normal size. No carotid bruits or any cervical adenopathy. CARDIOPULMONARY: Adynamic pericardium. S1 and S2 is rapid and regular. LUNGS: Clear to auscultation. ABDOMEN: Flat and soft with positive bowel sounds. EXTREMITIES: No peripheral edema. Pulses are +2 bilaterally. LABORATORY DATA: Chemistry showed BUN of 5, sodium 134, potassium 3.3, chloride 105, CO2 21, glucose is 73, and creatinine 0.5. Her albumin is 2.7, the total T4 5.09 with a free T3 of 1.86, total T3 of 0.82, and a TSH 7.94. ASSESSMENT AND PLAN: This is a 32-year-old female with large bowel obstruction and significant history of partial sigmoidectomy and resection, being referred now for metabolic management because of known history of hypothyroidism as noted there of. She has bichemical evidence of early hypothyroidism related to a subtherapeutic as noted. 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 Plan of management as discussed with the patient and the staff. We will start on low dose levothyroxine given as 50 mcg daily and we will titrate incrementally as indicated to optimize metabolic control. We will obtain a comprehensive thyroid hormonal profile, also repeat serial chemistries, and supplement accordingly as needed. We will follow. Dionne Atkinson MD
--- NOTE | 2017-06-23 16:32 | CP.PCM.PN ---
<Natasha Fallon - Last Filed: 06/23/17 16:29> Subjective - Date & Time of Evaluation Date of Evaluation: 06/23/17 Time of Evaluation: 06:40 - Subjective Subjective: GENERAL SURGERY PROGRESS NOTE FOR DR. ROBINS Patient seen and examined at bedside. She states that she vomited twice last night. She denies abdominal pain. She had a BM yesterday morning and is passing some flatus. Objective - Vital Signs/Intake and Output Vital Signs (last 24 hours): Temp Pulse Resp BP Pulse Ox 98.3 F 51 L 18 92/59 L 99 06/23/17 15:15 06/23/17 15:30 06/23/17 15:15 06/23/17 15:15 06/23/17 15:15 Intake and Output: 06/23/17 06/23/17 06:59 18:59 Intake Total 800 1750 Balance 800 1750 - Medications Medications: Current Medications Sodium Chloride (Sodium Chloride 0.9%) 1,000 mls @ 100 mls/hr IV .Q10H [facility] [place] Last Admin: 06/23/17 12:45 Dose: Not Given Levothyroxine Sodium (Synthroid) 50 mcg PO DAILY@0630 [facility] Morphine Sulfate (Morphine) 2 mg IVP Q4 PRN PRN Reason: Pain, moderate (4-7) Ondansetron HCl (Zofran Inj) 4 mg IVP Q6H PRN PRN Reason: Nausea/Vomiting Pantoprazole Sodium (Protonix Inj) 40 mg IVP DAILY [facility] [place] Last Admin: 06/23/17 09:31 Dose: 40 mg Sucralfate (Carafate Oral Susp) 1 gm PO ACBHS [facility] Last Admin: 06/23/17 06:31 Dose: Not Given - Labs Labs: 06/23/17 06:19 06/23/17 06:19 PT 13.2 SECONDS (9.7-12.2) H 06/22/17 11:35 INR 1.2 06/22/17 11:35 - Constitutional Appears: No Acute Distress - Head Exam Head Exam: ATRAUMATIC - Eye Exam Eye Exam: EOMI, Normal appearance - Respiratory Exam Respiratory Exam: NORMAL BREATHING PATTERN. absent: Respiratory Distress - Cardiovascular Exam Cardiovascular Exam: +S1, +S2 - GI/Abdominal Exam GI & Abdominal Exam: Soft, Tenderness (tender in LUQ). absent: Distended, Firm , Guarding, Rigid, Rebound - Neurological Exam Neurological Exam: Alert, Awake, Oriented x3 - Psychiatric Exam Psychiatric exam: Normal Affect, Normal Mood - Skin Skin Exam: Dry, Normal Color, Warm Assessment and Plan - Assessment and Plan (Free Text) Assessment: 32yo F with PMHx of hypothyroidism, redundant sigmoid, slow transit constipation s/p sigmoid & superior rectal resection on 05/17/17 presents with abdominal pain and vomiting. Likely gastritis. Clinically not obstructed - CT: colonic dilation- could be either diffuse colonic ileus or incomplete large bowel obstruction, possible transition point in descending colon; gastroesophageal reflux and dilation of distal esophagus - Trial of CLD - Hypokalemia - being replaced by medicine team - IV Fluids - Zofran and morphine PRN - Protonix - Discussed plan with Dr. Shimon Fallon PGY-3 <Landon Robins - Last Filed: 06/24/17 14:06> Objective - Vital Signs/Intake and Output Vital Signs (last 24 hours): Temp Pulse Resp BP Pulse Ox 97.2 F L 67 20 92/58 L 99 06/24/17 08:00 06/24/17 12:00 06/24/17 08:00 06/24/17 08:00 06/24/17 08:00 Intake and Output: 06/24/17 06/24/17 06:59 18:59 Intake Total 1550 Output Total 550 Balance 1000 - Medications Medications: Current Medications Docusate Sodium (Colace) 100 mg PO TID [facility] [place] Last Admin: 06/24/17 10:24 Dose: Not Given Levothyroxine Sodium 50 mcg/ (Sodium Chloride) 5 mls @ 0 mls/hr IVP Q24H [facility] PRN Reason: UD Last Admin: 06/24/17 06:00 Dose: 2.5 mls/hr Dextrose/Sodium Chloride (Dextrose 5%/0.9% Ns 1000 Ml) 1,000 mls @ 100 mls/hr IV .Q10H [facility] Last Admin: 06/24/17 10:13 Dose: 100 mls/hr Morphine Sulfate (Morphine) 2 mg IVP Q4 PRN PRN Reason: Pain, moderate (4-7) Ondansetron HCl (Zofran Inj) 4 mg IVP Q6H PRN PRN Reason: Nausea/Vomiting Last Admin: 06/24/17 03:32 Dose: 4 mg Pantoprazole Sodium (Protonix Inj) 40 mg IVP DAILY [facility] [place] Last Admin: 06/24/17 10:05 Dose: 40 mg Sucralfate (Carafate Oral Susp) 1 gm PO ACBHS [facility] Last Admin: 06/24/17 06:32 Dose: Not Given - Labs Labs: 06/24/17 07:03 06/24/17 07:03 PT 13.2 SECONDS (9.7-12.2) H 06/22/17 11:35 INR 1.2 06/22/17 11:35 Attending/Attestation - Attestation I have fully participated in the care of the patient.: Yes I have reviewed all pertinent clinical information, including history, physical exam and plan: Yes Notes (Text): 06/24/17 14:06 Pt is improving clinically C/w current mx No need for surgical intervention required at present Plan d.w pt in detail.
[2017-06-24] MEDS: Sodium Chloride 0.9% 1,000 ML IV SCH ×2 (03:34→07:15)
[2017-06-24] MEDS: Levothyroxine 50 MCG in Sodium Chloride 0.9% 2.5 ML IVP SCH (06:00)
[2017-06-24] MEDS ORDERED: Levothyroxine 50 MCG TAB PO SCH (06:30)
[2017-06-24] MEDS: Sucralfate 1 gm/10 ml Oral Susp UD PO SCH ×2 (06:32→21:19)
--- NOTE | 2017-06-24 06:54 | CP.PCM.PN ---
<Evin Juarez - Last Filed: 06/24/17 13:23> Subjective - Date & Time of Evaluation Date of Evaluation: 06/24/17 Time of Evaluation: 06:50 - Subjective Subjective: PGY-[address] Ugalde's service: Pt seen and examined at bedside. Nursing reports patient "spitting up" overnight , but denies vomiting. Patient reports she is passing gas, belching, and had a small BM yesterday. She states she is hungry and feels up to trying liquid diet. Nursing reports pt had no episodes of bradycardia this AM. Daughter at bedside reports pt taking Synthroid 100mg she was prescribed in [facility]. Pt hypoglycemic this AM. She denies history of diabetes. Objective - Vital Signs/Intake and Output Vital Signs (last 24 hours): Temp Pulse Resp BP Pulse Ox 98.7 F 76 20 93/59 L 99 06/23/17 23:15 06/24/17 05:56 06/23/17 23:15 06/24/17 05:56 06/23/17 23:15 Intake and Output: 06/23/17 06/24/17 18:59 06:59 Intake Total 1750 1550 Output Total 550 Balance 1750 1000 - Medications Medications: Current Medications Sodium Chloride (Sodium Chloride 0.9%) 1,000 mls @ 100 mls/hr IV .Q10H [facility] Last Admin: 06/24/17 03:34 Dose: 100 mls/hr Levothyroxine Sodium 50 mcg/ (Sodium Chloride) 5 mls @ 0 mls/hr IVP Q24H [facility] PRN Reason: UD Last Admin: 06/24/17 06:00 Dose: 2.5 mls/hr Morphine Sulfate (Morphine) 2 mg IVP Q4 PRN PRN Reason: Pain, moderate (4-7) Ondansetron HCl (Zofran Inj) 4 mg IVP Q6H PRN PRN Reason: Nausea/Vomiting Last Admin: 06/24/17 03:32 Dose: 4 mg Pantoprazole Sodium (Protonix Inj) 40 mg IVP DAILY [facility] Last Admin: 06/23/17 09:31 Dose: 40 mg Sucralfate (Carafate Oral Susp) 1 gm PO ACBHS [facility] Last Admin: 06/24/17 06:32 Dose: Not Given - Labs Labs: 06/23/17 06:19 06/23/17 06:19 PT 13.2 SECONDS (9.7-12.2) H 06/22/17 11:35 INR 1.2 06/22/17 11:35 - Constitutional Appears: Non-toxic, No Acute Distress - Head Exam Head Exam: ATRAUMATIC, NORMAL INSPECTION - Eye Exam Eye Exam: EOMI, PERRL. absent: Scleral icterus - ENT Exam ENT Exam: Mucous Membranes Moist, Normal Exam Additional comments: NGT in place, suction to wall - Respiratory Exam Respiratory Exam: Clear to Ausculation Bilateral, NORMAL BREATHING PATTERN. absent: Rales, Rhonchi, Wheezes - Cardiovascular Exam Cardiovascular Exam: REGULAR RHYTHM, +S1, +S2 - GI/Abdominal Exam GI & Abdominal Exam: Soft, Normal Bowel Sounds. absent: Tenderness - Extremities Exam Extremities Exam: Normal Inspection - Neurological Exam Neurological Exam: Alert, Awake, Oriented x3 - Psychiatric Exam Psychiatric exam: Normal Affect, Normal Mood - Skin Skin Exam: Normal Color, Warm Assessment and Plan - Assessment and Plan (Free Text) Plan: Partial large bowel obstruction versus colonic ileus Pt with sigmoid and superior rectal resection on 05/17/17 CT Abdomen/Pelvis (06/23/17): colonic dilation with possible transition point in descending colon; gastroesophageal reflux and dilation of distal esophagus Per surgery Team Dr. Robins: Patient is Clinically not obstructed NGT placed - 150 cc overnight drainage - pt passing gas, belching, and BM overnight - will advance diet to liquid monitor I/Os Zofran 4mg IV Q6H PRN Asymptomatic bradycardia Monitor on tele No bradycardic episodes overnight CARLA negative x 3 Hypothyroidism TSH 7.94 monitor vitals Endocrinology consult: Dr. Atkinson -follow up recommendations Hypotension IV Fluids NS 100cc/hr Patient was hypotensive at time of admission, patient was given 1 L bolus Levothyroxine 50mcg IV Q24H monitor vitals Hypoglycemia Pt 52 on AM sugars One amp of D50 Start D5/NS @ 100cc will dc if pt tolerating diet Hypokalemia 3.3 on AM labs -repleted Prophylaxis: GI Protonix SCDs Heparin 5000u Q12H Evin Juarez PGY-2 <Gloria Ugalde V - Last Filed: 06/25/17 16:11> Objective - Vital Signs/Intake and Output Vital Signs (last 24 hours): Temp Pulse Resp BP Pulse Ox 98.8 F 59 L 20 110/73 99 06/25/17 08:39 06/25/17 08:39 06/25/17 08:39 06/25/17 08:39 06/25/17 08:39 Intake and Output: 06/25/17 06/25/17 06:59 18:59 Intake Total 1650 700 Output Total 120 Balance 1530 700 - Medications Medications: Current Medications Docusate Sodium (Colace) 100 mg PO TID [facility] Last Admin: 06/25/17 13:13 Dose: 100 mg Levothyroxine Sodium 75 mcg/ (Sodium Chloride) 6.25 mls @ 0 mls/hr IVP Q24H [facility] PRN Reason: Per Protocol Morphine Sulfate (Morphine) 2 mg IVP Q4 PRN PRN Reason: Pain, moderate (4-7) Ondansetron HCl (Zofran Inj) 4 mg IVP Q6H PRN PRN Reason: Nausea/Vomiting Last Admin: 06/24/17 03:32 Dose: 4 mg Pantoprazole Sodium (Protonix Inj) 40 mg IVP DAILY [facility] Last Admin: 06/25/17 10:02 Dose: 40 mg Sucralfate (Carafate Oral Susp) 1 gm PO ACBHS [facility] Last Admin: 06/25/17 07:02 Dose: 1 gm - Labs Labs: 06/25/17 08:22 06/25/17 08:22 PT 13.2 SECONDS (9.7-12.2) H 06/22/17 11:35 INR 1.2 06/22/17 11:35 Attending/Attestation - Attestation I have personally seen and examined this patient.: Yes I have fully participated in the care of the patient.: Yes I have reviewed all pertinent clinical information, including history, physical exam and plan: Yes Notes (Text): This is a late computer entry for 06/24/17. Patient's NGT tube clamped, patient's diet advanced to clears Patient's ROMIs are negative X3. Patient is no longer bradycardic on telemetry. Telemetry discontinued. Fluids switched to D5NS 100cc/hr; will discontinue IV fluids once she tolerates diet Colace 100mg PO TID Assessment/Plan (1) Large Bowel Obstruction * Hx of redundant sigmoid, slow transit constipation * s/p partial sigmoidectomy lower anterior resection w anastomosis 1 month prior * s/p NGT tube placement on 06/23/17 * General surgery (Dr Robins) on consult * CT Abdomen/Pelvis (06/22/17): similar splenic flexure loop of moderate gaseous distension- smilar pattern per CT client engagement specialist image 05/02/17.Mid descending colonic transition point and/or intermittent incomplete colonic obstruction here is a consideration. no complete obstruction. No high grade partial obstruction now suggested. Continued close follow-up recommended. No current small bowel distention suggested. Right colonic stool retention * Surgery advises no ngt tube placement unless patient vomits. * Held Morphine secondary to worsening constipation * Patient is NPO * IV fluids * Zofran 4mg IV Q 6h PRN nausea * Protonix 40mg IV q daily Status: Acute (2) Daniel's Thyroiditis; Hypothyroidism Assessment and Plan: * Endocrinology (Dr. Atkinson) on consult-->help appreciated * Hold PO medication given NPO status * TSH elevated * Levothyroxine 75mcg IV Q 24hH Status: Chronic (3) Hypotension Assessment and Plan: * Given fluid bolus * NS 100cc/hr following bolus-->Switched to D5NS 100cc/hr * monitor vital signs Status: Chronic (4) GERD Assessment and Plan: * Protonix 40mg IV q daily Status: Chronic (5) Prophylactic measure Assessment and Plan: * SCDs * Protonix 40mg IV q daily * Cont to monitor for BMs Status: Acute
[2017-06-24 07:25] LABS: BASO % 0.4 % (0.0-2.0); EOS # 0.1 K/uL (0.0-0.7); EOS % 1.1 % (0.0-4.0); HEMATOCRIT 31.2 % (34.0-47.0); LYMPH # 1.9 K/uL (1.0-4.3); LYMPH % 21.5 % (20.0-40.0); MEAN CELL VOLUME 93.5 fL (81.0-99.0); MEAN CORPUSCULAR HEMOGLOBIN 32.1 pg (27.0-31.0); MEAN CORPUSCULAR HGB CONC 34.3 g/dL (33.0-37.0); MEAN PLATELET VOLUME 8.7 fL (7.2-11.7); MONO # 0.6 K/uL (0.0-0.8); MONO % 6.5 % (0.0-10.0); NRBC % 0.1 % (0.0-2.0)
[2017-06-24 07:28] LABS: CHLORIDE 105 mmol/L (98-107)
[2017-06-24 07:29] LABS: POTASSIUM 3.3 mmol/L (3.6-5.2); SODIUM 136 mmol/L (132-148)
[2017-06-24 07:30] LABS: WHITE BLOOD COUNT 8.7 K/uL (4.8-10.8)
[2017-06-24 07:31] LABS: ALB/GLOB RATIO 0.9 (1.0-2.1); ALKALINE PHOSPHATASE 58 U/L (38-126); AST/SGOT 14 U/L (14-36); BILIRUBIN,TOTAL 0.6 mg/dL (0.2-1.3); BLOOD UREA NITROGEN 8 mg/dL (7-17); CARBON DIOXIDE 17 mmol/L (22-30); GFR AFRICAN-AMERICAN > 60; GLUCOSE,RANDOM 53 mg/dL (65-105); TOTAL PROTEIN 6.8 g/dL (6.3-8.3)
[2017-06-24 07:32] LABS: ALT/SGPT 28 U/L (9-52); CALCIUM 8.2 mg/dl (8.6-10.4)
--- NOTE | 2017-06-24 08:56 | RAD ---
HISTORY: ngt placement confirmation COMPARISON: Comparison is made to 04/08/2017 FINDINGS: LUNGS: No active pulmonary disease. PLEURA: No significant pleural effusion identified, no pneumothorax apparent. CARDIOVASCULAR: Normal. OSSEOUS STRUCTURES: No significant abnormalities. VISUALIZED UPPER ABDOMEN: The NG tube seen extending to the left abdomen. Dilated large bowel loops is noted in the left upper abdomen associated with mild elevation of the left hemidiaphragm OTHER FINDINGS: None. IMPRESSION: The NG tube seen extending to the left abdomen. Dilated large bowel in the left upper abdomen associated with mild elevation of the left hemidiaphragm. No evidence of acute pulmonary disease.
[2017-06-24] MEDS ORDERED: Potassium Chloride 20 mEq ER Tab PO SCH (09:00)
[2017-06-24 09:12] LABS: MAGNESIUM 1.8 mg/dL (1.6-2.3)
--- NOTE | 2017-06-24 09:47 | CP.PCM.PN ---
Subjective - Date & Time of Evaluation Date of Evaluation: 06/24/17 Time of Evaluation: 06:45 - Subjective Subjective: General Surgery Dr. Vidal Pt S&E @bedside. NAEO. NGT placed by medicine yesterday. 150cc recorded as output since placement. Pt denies F/C, N/V. (-)BM, minimal flatus. Objective - Vital Signs/Intake and Output Vital Signs (last 24 hours): Temp Pulse Resp BP Pulse Ox 97.2 F L 72 20 92/58 L 99 06/24/17 08:00 06/24/17 08:00 06/24/17 08:00 06/24/17 08:00 06/24/17 08:00 Intake and Output: 06/24/17 06/24/17 06:59 18:59 Intake Total 1550 Output Total 550 Balance 1000 - Medications Medications: Current Medications Sodium Chloride (Sodium Chloride 0.9%) 1,000 mls @ 100 mls/hr IV .Q10H [facility] Last Admin: 06/24/17 03:34 Dose: 100 mls/hr Levothyroxine Sodium 50 mcg/ (Sodium Chloride) 5 mls @ 0 mls/hr IVP Q24H [facility] PRN Reason: UD Last Admin: 06/24/17 06:00 Dose: 2.5 mls/hr Potassium Chloride (Potassium Chloride 10 Meq/100 Ml) 10 meq in 100 mls @ 100 mls/hr IVPB Q1H [facility] Stop: 06/24/17 11:44 Morphine Sulfate (Morphine) 2 mg IVP Q4 PRN PRN Reason: Pain, moderate (4-7) Ondansetron HCl (Zofran Inj) 4 mg IVP Q6H PRN PRN Reason: Nausea/Vomiting Last Admin: 06/24/17 03:32 Dose: 4 mg Pantoprazole Sodium (Protonix Inj) 40 mg IVP DAILY [facility] Last Admin: 06/23/17 09:31 Dose: 40 mg Sucralfate (Carafate Oral Susp) 1 gm PO ACBHS [facility] Last Admin: 06/24/17 06:32 Dose: Not Given - Labs Labs: 06/24/17 07:03 06/24/17 07:03 PT 13.2 SECONDS (9.7-12.2) H 06/22/17 11:35 INR 1.2 06/22/17 11:35 - Constitutional Appears: Non-toxic, No Acute Distress - Head Exam Head Exam: NORMAL INSPECTION - Eye Exam Eye Exam: Normal appearance - ENT Exam ENT Exam: Mucous Membranes Moist - Respiratory Exam Respiratory Exam: NORMAL BREATHING PATTERN. absent: Accessory Muscle Use, Respiratory Distress - GI/Abdominal Exam GI & Abdominal Exam: Soft, Tenderness (minimal TTP lower abd). absent: Distended, Guarding, Rebound - Extremities Exam Extremities Exam: Normal Inspection - Neurological Exam Neurological Exam: Alert, Awake, Oriented x3 - Psychiatric Exam Psychiatric exam: Normal Affect, Normal Mood - Skin Skin Exam: Dry, Intact, Normal Color, Warm Assessment and Plan - Assessment and Plan (Free Text) Assessment: 32 y/o F w/ PMHx of hypothyroidism, redundant sigmoid, slow transit constipation s/p sigmoid & superior rectal resection on 05/17/17 presents w/ abd pain and vomiting. - Hypokalemia - replace PRN - cont IV Fluids - cont pain management - cont anti-emetic - start colace for constipation - cont Protonix, Pepcid, Karafate from gastritis - advance diet per medicine Pt discussed w/ Dr. Shimon Landrum DO PGY2
[2017-06-24] MEDS ORDERED: Influenza Vaccine 60 mcg/0.5 mL SYR (4YR UP) IM ONE (10:00)
[2017-06-24] MEDS ORDERED: Levothyroxine 200 mcg (0.2 mg) Inj IVP SCH (10:00)
[2017-06-24] MEDS ORDERED: Dextrose 50% SYRINGE Inj (50 ml) ONE (10:02)
[2017-06-24] MEDS: Dextrose 50% SYRINGE Inj (50 ml) IV ONE ×2 (10:04→10:05)
[2017-06-24] MEDS: Dextrose 5%/0.9% NS 1,000 ML IV SCH ×2 (10:13→22:51)
--- NOTE | 2017-06-25 06:35 | CP.PCM.PN ---
<Evin Juarez - Last Filed: 06/25/17 12:45> Subjective - Date & Time of Evaluation Date of Evaluation: 06/25/17 Time of Evaluation: 06:32 - Subjective Subjective: PGY-[address] Ugalde's service: Pt seen and examined at bedside. Patient reporting discomfort in her throat from the NG tube and asking for its removal. She reports tolerating limited liquid diet, but states the tube is making her gag and nauseous. She denies fever, chills, abdominal pain. Objective - Vital Signs/Intake and Output Vital Signs (last 24 hours): Temp Pulse Resp BP Pulse Ox 99.3 F 71 20 95/59 L 99 06/24/17 23:25 06/24/17 23:25 06/24/17 23:25 06/24/17 23:25 06/24/17 23:25 Intake and Output: 06/24/17 06/25/17 18:59 06:59 Intake Total 950 1650 Output Total 130 120 Balance 820 1530 - Medications Medications: Current Medications Docusate Sodium (Colace) 100 mg PO TID [facility] Last Admin: 06/24/17 17:51 Dose: Not Given Levothyroxine Sodium 50 mcg/ (Sodium Chloride) 5 mls @ 0 mls/hr IVP Q24H [facility] PRN Reason: UD Last Admin: 06/24/17 06:00 Dose: 2.5 mls/hr Dextrose/Sodium Chloride (Dextrose 5%/0.9% Ns 1000 Ml) 1,000 mls @ 100 mls/hr IV .Q10H [facility] Last Admin: 06/24/17 22:51 Dose: 100 mls/hr Morphine Sulfate (Morphine) 2 mg IVP Q4 PRN PRN Reason: Pain, moderate (4-7) Ondansetron HCl (Zofran Inj) 4 mg IVP Q6H PRN PRN Reason: Nausea/Vomiting Last Admin: 06/24/17 03:32 Dose: 4 mg Pantoprazole Sodium (Protonix Inj) 40 mg IVP DAILY [facility] Last Admin: 06/24/17 10:05 Dose: 40 mg Sucralfate (Carafate Oral Susp) 1 gm PO [facility] Last Admin: 06/24/17 21:19 Dose: Not Given - Labs Labs: 06/24/17 07:03 06/24/17 07:03 PT 13.2 SECONDS (9.7-12.2) H 06/22/17 11:35 INR 1.2 06/22/17 11:35 - Constitutional Appears: Non-toxic, No Acute Distress - Head Exam Head Exam: ATRAUMATIC, NORMAL INSPECTION - Eye Exam Eye Exam: EOMI, PERRL. absent: Scleral icterus - ENT Exam ENT Exam: Mucous Membranes Moist - Respiratory Exam Respiratory Exam: Clear to Ausculation Bilateral, NORMAL BREATHING PATTERN - Cardiovascular Exam Cardiovascular Exam: REGULAR RHYTHM, +S1, +S2 - GI/Abdominal Exam GI & Abdominal Exam: Soft, Normal Bowel Sounds. absent: Tenderness - Extremities Exam Extremities Exam: Normal Inspection. absent: Pedal Edema - Back Exam Back Exam: NORMAL INSPECTION - Neurological Exam Neurological Exam: Alert, Awake, Oriented x3 - Psychiatric Exam Psychiatric exam: Normal Affect - Skin Skin Exam: Dry, Normal Color, Warm Assessment and Plan - Assessment and Plan (Free Text) Plan: Partial large bowel obstruction versus colonic ileus Pt with sigmoid and superior rectal resection on 05/17/17 CT Abdomen/Pelvis (06/23/17): colonic dilation with possible transition point in descending colon; gastroesophageal reflux and dilation of distal esophagus Per surgery Team Dr. Robins: Patient is Clinically not obstructed NGT removed - pt passing gas, belching, and BM overnight - pt tolerating liquid diet monitor I/Os f/u AM ABD XR: (wet read) Improving dilated loops of bowel from previous study - f/u official read Zofran 4mg IV Q6H PRN Hypokalemia 2.9 on AM labs -f/u BMP at 6pm Asymptomatic bradycardia Resolved Hypothyroidism TSH 7.94 monitor vitals Endocrinology consult: Dr. Atkinson -follow up recommendations - Levothyroxine IV to start tomorrow AM - may be able to switch to PO if pt tolerating Hypotension Resolved, Normotensive this AM - pt tolerating diet Patient was hypotensive at time of admission, patient was given 1 L bolus monitor vitals Hypoglycemia Tolerating diet BG has normalized Prophylaxis: GI Protonix SCDs Heparin 5000u Q12H Evin Juarez PGY-2 <Gloria Ugalde V - Last Filed: 06/25/17 16:22> Objective - Vital Signs/Intake and Output Vital Signs (last 24 hours): Temp Pulse Resp BP Pulse Ox 98.8 F 59 L 20 110/73 99 06/25/17 08:39 06/25/17 08:39 06/25/17 08:39 06/25/17 08:39 06/25/17 08:39 Intake and Output: 06/25/17 06/25/17 06:59 18:59 Intake Total 1650 700 Output Total 120 Balance 1530 700 - Medications Medications: Current Medications Docusate Sodium (Colace) 100 mg PO TID [facility] Last Admin: 06/25/17 13:13 Dose: 100 mg Levothyroxine Sodium 75 mcg/ (Sodium Chloride) 6.25 mls @ 0 mls/hr IVP Q24H [facility] PRN Reason: Per Protocol Morphine Sulfate (Morphine) 2 mg IVP Q4 PRN PRN Reason: Pain, moderate (4-7) Ondansetron HCl (Zofran Inj) 4 mg IVP Q6H PRN PRN Reason: Nausea/Vomiting Last Admin: 06/24/17 03:32 Dose: 4 mg Pantoprazole Sodium (Protonix Inj) 40 mg IVP DAILY [facility] Last Admin: 06/25/17 10:02 Dose: 40 mg Sucralfate (Carafate Oral Susp) 1 gm PO [facility] Last Admin: 06/25/17 07:02 Dose: 1 gm - Labs Labs: 06/25/17 08:22 06/25/17 08:22 PT 13.2 SECONDS (9.7-12.2) H 06/22/17 11:35 INR 1.2 06/22/17 11:35 Attending/Attestation - Attestation I have personally seen and examined this patient.: Yes I have fully participated in the care of the patient.: Yes I have reviewed all pertinent clinical information, including history, physical exam and plan: Yes Notes (Text): Patient seen, examined, and case discussed with day-time resident. Patient's NGT Tube discontinued this morning. patient appears less distended. Patient reports she has spit ups but not throwing up. Will monitor patient on clears; reports with NGT tube she felt irritated while trying to eat Per endocrinology, will titrate Levothyroxine Electrolytes repleted; f/u BMP for this evening f/u Bowel movement Assessment/Plan (1) Large Bowel Obstruction * Hx of redundant sigmoid, slow transit constipation * s/p partial sigmoidectomy lower anterior resection w anastomosis 1 month prior * s/p NGT tube placement on 06/23/17; off 06/25/17 * General surgery (Dr oRbins) on consult * CT Abdomen/Pelvis (06/22/17): similar splenic flexure loop of moderate gaseous distension- smilar pattern per CT lay out helper image 05/02/17.Mid descending colonic transition point and/or intermittent incomplete colonic obstruction here is a consideration. no complete obstruction. No high grade partial obstruction now suggested. Continued close follow-up recommended. No current small bowel distention suggested. Right colonic stool retention * Obstructive series (06/25/17): unremarkable radiographs of chest and abdomen. No evidence of mechanical bowel obstruction * Held Morphine secondary to worsening constipation * Patient is NPO * d/c IV fluids * On clear diet * Zofran 4mg IV Q 6h PRN nausea * Protonix 40mg IV q daily Status: Acute (2) Daniel's Thyroiditis; Hypothyroidism Assessment and Plan: * Endocrinology (Dr. Atkinson) on consult-->help appreciated * Hold PO medication given NPO status * TSH elevated * Levothyroxine 75mcg IV Q 24hH Status: Chronic (3) Hypotension Assessment and Plan: * Given fluid bolus on admission * NS 100cc/hr following bolus-->Switched to D5NS 100cc/hr * D?C IV fluids * Normalized Status: Chronic (4) GERD Assessment and Plan: * Protonix 40mg IV q daily Status: Chronic (5) Prophylactic measure Assessment and Plan: * SCDs * Protonix 40mg IV q daily * Cont to monitor for BMs * Carafate 1 gm PO [facility] Status: Acute
[2017-06-25] MEDS: Dextrose 5%/0.9% NS 1,000 ML IV SCH (07:00)
[2017-06-25] MEDS: Levothyroxine 50 MCG in Sodium Chloride 0.9% 2.5 ML IVP SCH (07:02)
[2017-06-25] MEDS: Sucralfate 1 gm/10 ml Oral Susp UD PO SCH ×2 (07:02→21:39)
[2017-06-25 08:49] LABS: BASO % 0.2 % (0.0-2.0); EOS # 0.2 K/uL (0.0-0.7); EOS % 2.5 % (0.0-4.0); HEMATOCRIT 30.2 % (34.0-47.0); LYMPH # 1.9 K/uL (1.0-4.3); LYMPH % 29.8 % (20.0-40.0); MEAN CELL VOLUME 92.3 fL (81.0-99.0); MEAN CORPUSCULAR HEMOGLOBIN 32.3 pg (27.0-31.0); MEAN PLATELET VOLUME 8.8 fL (7.2-11.7); MONO # 0.5 K/uL (0.0-0.8); NRBC % 0.1 % (0.0-2.0); RED CELL DISTRIBUTION WIDTH 13.2 % (11.5-14.5); WHITE BLOOD COUNT 6.5 K/uL (4.8-10.8)
[2017-06-25 09:16] LABS: CHLORIDE 105 mmol/L (98-107); POTASSIUM 2.9 mmol/L (3.6-5.2); SODIUM 136 mmol/L (132-148)
[2017-06-25 09:18] LABS: AST/SGOT 14 U/L (14-36); BILIRUBIN,TOTAL 0.5 mg/dL (0.2-1.3); CARBON DIOXIDE 21 mmol/L (22-30); GFR AFRICAN-AMERICAN > 60
[2017-06-25 09:19] LABS: ALB/GLOB RATIO 0.9 (1.0-2.1); ALKALINE PHOSPHATASE 54 U/L (38-126); ALT/SGPT 28 U/L (9-52); BLOOD UREA NITROGEN 5 mg/dL (7-17); CALCIUM 8.1 mg/dl (8.6-10.4); GLUCOSE,RANDOM 76 mg/dL (65-105); MAGNESIUM 1.7 mg/dL (1.6-2.3); PHOSPHOROUS 3.2 mg/dL (2.5-4.5); TOTAL PROTEIN 6.6 g/dL (6.3-8.3)
[2017-06-25] MEDS ORDERED: Potassium Chloride 20 mEq ER Tab PO ONE (09:29)
[2017-06-25] MEDS: Potassium Chloride 20 mEq/15 ml LIQ UD PO SCH ×2 (11:29→13:15)
--- NOTE | 2017-06-25 13:52 | CP.PCM.PN ---
Subjective - Date & Time of Evaluation Date of Evaluation: 06/25/17 Time of Evaluation: 07:00 - Subjective Subjective: GENERAL SURGERY PROGRESS NOTE FOR DR. GUZMAN Patient seen and examined at bedside. She denies abdominal pain and denies vomiting. She passed flatus last night. Last BM was 2 days ago. She tolerated her CLD. Medicine did NG tube clamp trial and removed NG tube today. Objective - Vital Signs/Intake and Output Vital Signs (last 24 hours): Temp Pulse Resp BP Pulse Ox 98.8 F 59 L 20 110/73 99 06/25/17 08:39 06/25/17 08:39 06/25/17 08:39 06/25/17 08:39 06/25/17 08:39 Intake and Output: 06/25/17 06/25/17 06:59 18:59 Intake Total 1650 Output Total 120 Balance 1530 - Medications Medications: Current Medications Docusate Sodium (Colace) 100 mg PO TID [facility] Last Admin: 06/25/17 13:13 Dose: 100 mg Levothyroxine Sodium 75 mcg/ (Sodium Chloride) 6.25 mls @ 0 mls/hr IVP Q24H STEVEN PRN Reason: Per Protocol Morphine Sulfate (Morphine) 2 mg IVP Q4 PRN PRN Reason: Pain, moderate (4-7) Ondansetron HCl (Zofran Inj) 4 mg IVP Q6H PRN PRN Reason: Nausea/Vomiting Last Admin: 06/24/17 03:32 Dose: 4 mg Pantoprazole Sodium (Protonix Inj) 40 mg IVP DAILY [facility] Last Admin: 06/25/17 10:02 Dose: 40 mg Sucralfate (Carafate Oral Susp) 1 gm PO ACBHS [facility] Last Admin: 06/25/17 07:02 Dose: 1 gm - Labs Labs: 06/25/17 08:22 06/25/17 08:22 PT 13.2 SECONDS (9.7-12.2) H 06/22/17 11:35 INR 1.2 06/22/17 11:35 - Constitutional Appears: Non-toxic, No Acute Distress - Respiratory Exam Respiratory Exam: NORMAL BREATHING PATTERN. absent: Respiratory Distress - Cardiovascular Exam Cardiovascular Exam: +S1, +S2 - GI/Abdominal Exam GI & Abdominal Exam: Soft. absent: Distended, Firm, Guarding, Rigid, Tenderness - Neurological Exam Neurological Exam: Alert, Awake, Oriented x3 - Psychiatric Exam Psychiatric exam: Normal Affect, Normal Mood - Skin Skin Exam: Dry, Normal Color, Warm Assessment and Plan - Assessment and Plan (Free Text) Assessment: 32yo F with PMHx of hypothyroidism, redundant sigmoid, slow transit constipation s/p sigmoid & superior rectal resection on 05/17/17 presented with abdominal pain and vomiting. Likely gastritis. - Tolerating CLD - Advance diet as tolerated - Hypokalemia - giving PO KCl - IV Fluids - Protonix - Discussed plan with Dr. Shimon Fallon PGY-3
--- NOTE | 2017-06-25 14:17 | PN ---
ENDOCRINOLOGY FOLLOWUP NOTE LOCATION: Room #664. This is a 32-year-old female, presenting here with large-bowel obstruction and also being followed closely for metabolic management of known history of hypothyroidism as noted thereof. She is still on the liquid diet at this time and her latest chemistries showed a BUN of 5, sodium 136, potassium 2.9, chloride 105, CO2 of 21, glucose 76 and creatinine is 0.5. Her latest thyroid study showed a T4 of 5.09 with a TSH of 7.94 and a T3 of 0.86, so at this time, we will increase once again her levothyroxine to 75 mcg once daily as ordered. We will titrate incrementally as indicated to optimize metabolic control. We will obtain serial chemistries and supplement accordingly as needed. We will follow with you. Dionne Atkinson MD
--- NOTE | 2017-06-25 14:47 | RAD ---
PROCEDURE: Radiographs of the chest and abdomen (obstructive series) HISTORY: large bowel obstruction COMPARISON: Comparison is made to 07/2017 TECHNIQUE: AP radiograph of the chest, with upright and supine radiographs of the abdomen. FINDINGS: CHEST: Lungs: Clear. Cardiovascular: Normal size heart. No pulmonary vascular congestion. Pleura: No pleural fluid. No pneumothorax. Other findings: None. ABDOMEN AND PELVIS: Bowel: Unremarkable bowel gas pattern. No evidence of mechanical obstruction. Free air: None. Bones: Unremarkable. Other findings: NG tube seen extending to the stomach IMPRESSION: Unremarkable radiographs of chest and abdomen. No evidence of mechanical bowel obstruction.
[2017-06-25 18:25] LABS: CHLORIDE 106 mmol/L (98-107); SODIUM 136 mmol/L (132-148)
[2017-06-25 18:28] LABS: GFR AFRICAN-AMERICAN > 60
[2017-06-25 18:29] LABS: BLOOD UREA NITROGEN 4 mg/dL (7-17); CALCIUM 8.8 mg/dl (8.6-10.4); CARBON DIOXIDE 19 mmol/L (22-30); GLUCOSE,RANDOM 89 mg/dL (65-105)
[2017-06-26] MEDS ORDERED: SODIUM CHLORIDE 0.9% IVP SCH (06:30)
[2017-06-26] MEDS ORDERED: LEVOTHYROXINE IVP SCH (06:30)
[2017-06-26 08:07] LABS: BASO % 0.7 % (0.0-2.0); EOS # 0.3 K/uL (0.0-0.7); EOS % 4.6 % (0.0-4.0); HEMATOCRIT 31.6 % (34.0-47.0); LYMPH # 2.3 K/uL (1.0-4.3); LYMPH % 36.5 % (20.0-40.0); MEAN CELL VOLUME 92.3 fL (81.0-99.0); MEAN CORPUSCULAR HEMOGLOBIN 31.4 pg (27.0-31.0); MEAN CORPUSCULAR HGB CONC 34.1 g/dL (33.0-37.0); MEAN PLATELET VOLUME 8.9 fL (7.2-11.7); MONO # 0.5 K/uL (0.0-0.8); MONO % 8.2 % (0.0-10.0); NRBC % 0.1 % (0.0-2.0); WHITE BLOOD COUNT 6.2 K/uL (4.8-10.8)
[2017-06-26] MEDS: Sucralfate 1 gm/10 ml Oral Susp UD PO SCH ×2 (08:09→22:12)
--- NOTE | 2017-06-26 08:13 | CP.PCM.PN ---
Subjective - Date & Time of Evaluation Date of Evaluation: 06/26/17 Time of Evaluation: 07:00 - Subjective Subjective: General Surgery Note for Dr. Robins Patient seen and examined at bedside. Patient had no acute events overnight. Patient has been passing flatus, but has had no bowel movement. Patient has been having some acid reflux. Patient denies nausea, vomiting, abdominal pain. Objective - Vital Signs/Intake and Output Vital Signs (last 24 hours): Temp Pulse Resp BP Pulse Ox 98.8 F 76 20 111/68 96 06/25/17 23:12 06/25/17 23:12 06/25/17 23:12 06/25/17 23:12 06/25/17 23:12 Intake and Output: 06/26/17 06/26/17 06:59 18:59 Intake Total 400 Balance 400 - Medications Medications: Current Medications Docusate Sodium (Colace) 100 mg PO TID [facility] Last Admin: 06/25/17 17:20 Dose: 100 mg Levothyroxine Sodium 75 mcg/ (Sodium Chloride) 6.25 mls @ 0 mls/hr IVP Q24H STEVEN PRN Reason: Per Protocol Last Admin: 06/26/17 06:40 Dose: 3.75 mls/hr Morphine Sulfate (Morphine) 2 mg IVP Q4 PRN PRN Reason: Pain, moderate (4-7) Ondansetron HCl (Zofran Inj) 4 mg IVP Q6H PRN PRN Reason: Nausea/Vomiting Last Admin: 06/24/17 03:32 Dose: 4 mg Pantoprazole Sodium (Protonix Inj) 40 mg IVP DAILY [facility] Last Admin: 06/25/17 10:02 Dose: 40 mg Sucralfate (Carafate Oral Susp) 1 gm PO ACBHS [facility] Last Admin: 06/25/17 21:39 Dose: 1 gm - Labs Labs: 06/25/17 08:22 06/25/17 18:12 PT 13.2 SECONDS (9.7-12.2) H 06/22/17 11:35 INR 1.2 06/22/17 11:35 - Constitutional Appears: Non-toxic, No Acute Distress - Head Exam Head Exam: ATRAUMATIC, NORMAL INSPECTION, NORMOCEPHALIC - Eye Exam Eye Exam: EOMI, Normal appearance - ENT Exam ENT Exam: Mucous Membranes Moist - Respiratory Exam Respiratory Exam: NORMAL BREATHING PATTERN. absent: Accessory Muscle Use, Respiratory Distress - Cardiovascular Exam Cardiovascular Exam: REGULAR RHYTHM, +S1, +S2 - GI/Abdominal Exam GI & Abdominal Exam: Distended, Soft. absent: Tenderness - Extremities Exam Extremities Exam: Normal Inspection. absent: Pedal Edema - Neurological Exam Neurological Exam: Alert, Awake, Oriented x3 - Psychiatric Exam Psychiatric exam: Normal Affect, Normal Mood - Skin Skin Exam: Intact, Normal Color, Warm Assessment and Plan - Assessment and Plan (Free Text) Assessment: 32yo F s/p sigmoid & superior rectal resection on 05/17/17 presented with abdominal pain and vomiting. - Diet advanced to full liquids - Protonix - Discussed plan with Dr. Robins
--- NOTE | 2017-06-26 08:27 | PN ---
DATE: 06/24/2017 LOCATION: Room 664 SUBJECTIVE: This is a 32-year-old female with diabetes, colonic obstruction, with a prior history of sigmoid resection and is now being followed closely for metabolic management. She also has hypothyroidism currently on levothyroxine replacement therapy as given. She is on liquid diet as given at this time as noted. LABORATORY DATA: Her latest chemistry showed a BUN of 8, sodium 136, potassium 3.3, chloride 105, CO2 17, glucose 53, and creatinine 0.5. Her glucose levels have been in the low side of normal most likely related to under nutrition and inadequate substrate as given. Her latest thyroid studies showed a T4 of 5.09 with T3 of 0.826, and TSH of 7.94. ASSESSMENT AND PLAN: So at this time, we will continue the same low dose levothyroxine at 50 mcg daily as ordered and we will titrate incremental as her oral intake improves accordingly. We will obtain serum thyroid studies and optimize her metabolic control as indicated. Dionne Atkinson MD
[2017-06-26 08:46] LABS: CHLORIDE 101 mmol/L (98-107); POTASSIUM 3.7 mmol/L (3.6-5.2); SODIUM 135 mmol/L (132-148)
[2017-06-26 08:48] LABS: ALKALINE PHOSPHATASE 54 U/L (38-126); AST/SGOT 16 U/L (14-36); BILIRUBIN,TOTAL 0.5 mg/dL (0.2-1.3); BLOOD UREA NITROGEN 8 mg/dL (7-17); CARBON DIOXIDE 23 mmol/L (22-30); GFR AFRICAN-AMERICAN > 60; TOTAL PROTEIN 6.9 g/dL (6.3-8.3)
[2017-06-26 08:49] LABS: ALT/SGPT 19 U/L (9-52); CALCIUM 8.3 mg/dl (8.6-10.4); GLUCOSE,RANDOM 74 mg/dL (65-105); MAGNESIUM 1.8 mg/dL (1.6-2.3); PHOSPHOROUS 3.5 mg/dL (2.5-4.5)
--- NOTE | 2017-06-26 12:29 | CARD ---
APPROVED REPORT EKG Measurement Heart [id number] 132P37 [id number] <Conclusion> Sinus bradycardia Septal infarct, age undetermined Abnormal ECG
--- NOTE | 2017-06-26 12:45 | CARD ---
APPROVED REPORT EKG Measurement Heart [id number] [place] 130P40 [id number] <Conclusion> Sinus bradycardia Otherwise normal ECG
[2017-06-26] MEDS ORDERED: Bisacodyl 5mg EC Tab PO ONE (16:36)
--- NOTE | 2017-06-26 16:40 | CP.PCM.PN ---
Subjective - Date & Time of Evaluation Date of Evaluation: 06/26/17 Time of Evaluation: 16:37 - Subjective Subjective: Progress note for Dr. Bustillo Patient seen and examined at bedside. Patient states she has no complaints. Patient denies bowel movements. Patient admits to eructation. patient was encouraged to ambulate more today. NGT taken out after NGT clamp trial yesterday. Objective - Vital Signs/Intake and Output Vital Signs (last 24 hours): Temp Pulse Resp BP Pulse Ox 98.1 F 71 17 108/71 98 06/26/17 07:40 06/26/17 07:40 06/26/17 07:40 06/26/17 07:40 06/26/17 07:40 Intake and Output: 06/26/17 06/26/17 06:59 18:59 Intake Total 400 Balance 400 - Medications Medications: Current Medications Bisacodyl (Dulcolax) 5 mg PO ONCE ONE Stop: 06/26/17 16:37 Bisacodyl (Dulcolax) 10 mg AL Q8 PRN PRN Reason: till bm Docusate Sodium (Colace) 100 mg PO TID [facility] Last Admin: 06/26/17 13:57 Dose: 100 mg Levothyroxine Sodium 75 mcg/ (Sodium Chloride) 6.25 mls @ 0 mls/hr IVP Q24H STEVEN PRN Reason: Per Protocol Last Admin: 06/26/17 06:40 Dose: 3.75 mls/hr Morphine Sulfate (Morphine) 2 mg IVP Q4 PRN PRN Reason: Pain, moderate (4-7) Ondansetron HCl (Zofran Inj) 4 mg IVP Q6H PRN PRN Reason: Nausea/Vomiting Last Admin: 06/24/17 03:32 Dose: 4 mg Pantoprazole Sodium (Protonix Inj) 40 mg IVP DAILY [facility] Last Admin: 06/26/17 09:20 Dose: 40 mg Sucralfate (Carafate Oral Susp) 1 gm PO ACBHS [facility] Last Admin: 06/26/17 08:09 Dose: 1 gm - Labs Labs: 06/26/17 08:01 06/26/17 08:01 PT 13.2 SECONDS (9.7-12.2) H 06/22/17 11:35 INR 1.2 06/22/17 11:35 - Constitutional Appears: Non-toxic - Head Exam Head Exam: NORMAL INSPECTION - Eye Exam Eye Exam: EOMI, Normal appearance - ENT Exam ENT Exam: Mucous Membranes Moist - Neck Exam Neck Exam: Full ROM - Respiratory Exam Respiratory Exam: Clear to Ausculation Bilateral, NORMAL BREATHING PATTERN. absent: Accessory Muscle Use - Cardiovascular Exam Cardiovascular Exam: REGULAR RHYTHM, +S1, +S2 - GI/Abdominal Exam GI & Abdominal Exam: Soft. absent: Tenderness - Extremities Exam Extremities Exam: Full ROM. absent: Tenderness - Back Exam Back Exam: Full ROM - Neurological Exam Neurological Exam: Alert, Awake, CN II-XII Intact - Psychiatric Exam Psychiatric exam: Normal Affect, Normal Mood - Skin Skin Exam: Dry, Intact, Normal Color, Warm Assessment and Plan - Assessment and Plan (Free Text) Assessment: Partial large bowel obstruction versus colonic ileus Pt with sigmoid and superior rectal resection on 05/17/17 CT Abdomen/Pelvis (06/23/17): colonic dilation with possible transition point in descending colon; gastroesophageal reflux and dilation of distal esophagus Per surgery Team Dr. Robins: Patient is Clinically not obstructed NGT inserted 06/23 NGT removed 06/25 - pt passing gas,eructating, last BM 06/24 - pt tolerating liquid diet monitor I/Os Dulcolax 5mg PO added to colace 06/26 f/u BM. Abdominal XR: Improving dilated loops of bowel from previous study Zofran 4mg IV Q6H PRN Hypokalemia, resolved Asymptomatic bradycardia Resolved Hypothyroidism TSH 7.94 monitor vitals Endocrinology consult: Dr. Atkinson -follow up recommendations - Levothyroxine IV to start tomorrow AM - may be able to switch to PO if pt tolerating Hypotension Resolved, Normotensive this AM Patient was hypotensive at time of admission, patient was given 1 L bolus monitor vitals Hypoglycemia Tolerating diet Prophylaxis: GI Protonix SCDs Heparin 5000u Q12H discussed with Dr. Iwona Cuevas, DO PGY1
[2017-06-27] MEDS ORDERED: SODIUM CHLORIDE 0.9% IVP SCH (06:30)
[2017-06-27] MEDS ORDERED: LEVOTHYROXINE IVP SCH (06:30)
[2017-06-27] MEDS: Sucralfate 1 gm/10 ml Oral Susp UD PO SCH (08:02)
[2017-06-27 08:10] LABS: BASO % 0.6 % (0.0-2.0); EOS # 0.4 K/uL (0.0-0.7); EOS % 6.3 % (0.0-4.0); HEMATOCRIT 31.1 % (34.0-47.0); LYMPH # 2.1 K/uL (1.0-4.3); LYMPH % 35.5 % (20.0-40.0); MEAN CELL VOLUME 92.2 fL (81.0-99.0); MEAN CORPUSCULAR HEMOGLOBIN 32.5 pg (27.0-31.0); MEAN CORPUSCULAR HGB CONC 35.2 g/dL (33.0-37.0); MEAN PLATELET VOLUME 8.9 fL (7.2-11.7); MONO # 0.5 K/uL (0.0-0.8); MONO % 7.9 % (0.0-10.0); NRBC % 0.1 % (0.0-2.0); RED CELL DISTRIBUTION WIDTH 12.8 % (11.5-14.5)
[2017-06-27 08:14] LABS: CHLORIDE 100 mmol/L (98-107)
[2017-06-27 08:15] LABS: POTASSIUM 3.2 mmol/L (3.6-5.2); SODIUM 133 mmol/L (132-148)
[2017-06-27 08:17] LABS: ALB/GLOB RATIO 1.1 (1.0-2.1); ALKALINE PHOSPHATASE 54 U/L (38-126); AST/SGOT 16 U/L (14-36); BILIRUBIN,TOTAL 0.5 mg/dL (0.2-1.3); BLOOD UREA NITROGEN 15 mg/dL (7-17); CARBON DIOXIDE 24 mmol/L (22-30); GFR AFRICAN-AMERICAN > 60; GLUCOSE,RANDOM 74 mg/dL (65-105)
[2017-06-27 08:18] LABS: ALT/SGPT 26 U/L (9-52); CALCIUM 8.6 mg/dl (8.6-10.4); MAGNESIUM 1.7 mg/dL (1.6-2.3); PHOSPHOROUS 4.1 mg/dL (2.5-4.5)
[2017-06-27] MEDS ORDERED: Potassium Chloride 20 mEq/15 ml LIQ UD PO ONE (09:07)
--- NOTE | 2017-06-27 09:14 | CP.PCM.PN ---
Subjective - Date & Time of Evaluation Date of Evaluation: 06/27/17 Time of Evaluation: 07:00 - Subjective Subjective: General Surgery Note for Dr. Robins Patient seen and examined at bedside and in no acute distress. No acute events overnight. Patient has not had a bowel movement. Patient complains of minimal abdominal pain in b/l lower quadrants. Patient tolerated full liquid diet well yesterday and wants to try solid foods. Patient denies shortness of breath, chest pain, n/v. Objective - Vital Signs/Intake and Output Vital Signs (last 24 hours): Temp Pulse Resp BP Pulse Ox 98 F 47 L 16 92/57 L 99 06/27/17 07:20 06/27/17 07:20 06/27/17 07:20 06/27/17 07:20 06/27/17 07:20 Intake and Output: 06/27/17 06/27/17 06:59 18:59 Intake Total 240 Balance 240 - Medications Medications: Current Medications Bisacodyl (Dulcolax) 10 mg [place] Q8 PRN PRN Reason: till bm Docusate Sodium (Colace) 100 mg PO TID [facility] Last Admin: 06/26/17 17:51 Dose: 100 mg Levothyroxine Sodium 75 mcg/ (Sodium Chloride) 7.5 mls @ 0 mls/hr IVP Q24H STEVEN PRN Reason: Per Protocol Last Admin: 06/27/17 06:32 Dose: 3.75 mls/hr Morphine Sulfate (Morphine) 2 mg IVP Q4 PRN PRN Reason: Pain, moderate (4-7) Ondansetron HCl (Zofran Inj) 4 mg IVP Q6H PRN PRN Reason: Nausea/Vomiting Last Admin: 06/24/17 03:32 Dose: 4 mg Pantoprazole Sodium (Protonix Inj) 40 mg IVP DAILY [facility] Last Admin: 06/26/17 09:20 Dose: 40 mg Sucralfate (Carafate Oral Susp) 1 gm PO ACBHS [facility] Last Admin: 06/27/17 08:02 Dose: 1 gm - Labs Labs: 06/27/17 07:57 06/27/17 07:57 PT 13.2 SECONDS (9.7-12.2) H 06/22/17 11:35 INR 1.2 06/22/17 11:35 - Constitutional Appears: Well, Non-toxic, No Acute Distress - Head Exam Head Exam: ATRAUMATIC, NORMAL INSPECTION, NORMOCEPHALIC - Eye Exam Eye Exam: EOMI, Normal appearance - ENT Exam ENT Exam: Mucous Membranes Moist - Respiratory Exam Respiratory Exam: NORMAL BREATHING PATTERN. absent: Accessory Muscle Use, Respiratory Distress - Cardiovascular Exam Cardiovascular Exam: REGULAR RHYTHM, +S1, +S2 - GI/Abdominal Exam GI & Abdominal Exam: Soft, Tenderness Additional comments: mild b/l lower quadrant abdominal tenderness - Extremities Exam Extremities Exam: Full ROM, Normal Inspection. absent: Pedal Edema - Neurological Exam Neurological Exam: Alert, Awake, Oriented x3 - Psychiatric Exam Psychiatric exam: Normal Affect, Normal Mood - Skin Skin Exam: Intact, Normal Color, Warm Assessment and Plan - Assessment and Plan (Free Text) Assessment: 32yo F s/p sigmoid & superior rectal resection on 05/17/17 presented with abdominal pain and vomiting. - Diet advanced to regular - Protonix - Monitor for bowel function - Discussed plan with Dr. Robins
[2017-06-27] MEDS: Potassium Chloride 20 mEq ER Tab PO SCH ×2 (09:54→17:46)
--- NOTE | 2017-06-27 15:13 | CP.PCM.DIS ---
Provider - Provider Date of Admission: 06/22/17 06:46 Attending physician: Jabari Bustillo MD Consults: Dr. Robins General Surgery Dr. Atkinson Endocrinology Time Spent in preparation of Discharge (in minutes): 35 Hospital Course - Lab Results Lab Results: Most Recent Lab Values WBC 6.0 K/uL (4.8-10.8) 06/27/17 07:57 RBC 3.38 Mil/uL (3.80-5.20) L 06/27/17 07:57 Hgb 11.0 g/dL (11.0-16.0) 06/27/17 07:57 Hct 31.1 % (34.0-47.0) L 06/27/17 07:57 MCV 92.2 fL (81.0-99.0) 06/27/17 07:57 MCH 32.5 pg (27.0-31.0) H 06/27/17 07:57 MCHC 35.2 g/dL (33.0-37.0) 06/27/17 07:57 RDW 12.8 % (11.5-14.5) 06/27/17 07:57 Plt Count 245 K/uL (130-400) 06/27/17 07:57 MPV 8.9 fL (7.2-11.7) 06/27/17 07:57 Neut % (Auto) 49.7 % (50.0-75.0) L 06/27/17 07:57 Lymph % (Auto) 35.5 % (20.0-40.0) 06/27/17 07:57 [place] % (Auto) 7.9 % (0.0-10.0) 06/27/17 07:57 Eos % (Auto) 6.3 % (0.0-4.0) H 06/27/17 07:57 Baso % (Auto) 0.6 % (0.0-2.0) 06/27/17 07:57 Neut # 3.0 K/uL (1.8-7.0) 06/27/17 07:57 Lymph # 2.1 K/uL (1.0-4.3) 06/27/17 07:57 [place] # 0.5 K/uL (0.0-0.8) 06/27/17 07:57 Eos # 0.4 K/uL (0.0-0.7) 06/27/17 07:57 Baso # 0.0 K/uL (0.0-0.2) 06/27/17 07:57 PT 13.2 SECONDS (9.7-12.2) H 06/22/17 11:35 INR 1.2 06/22/17 11:35 Sodium 133 mmol/L (132-148) 06/27/17 07:57 Potassium 3.2 mmol/L (3.6-5.2) L 06/27/17 07:57 Chloride 100 mmol/L (98-107) 06/27/17 07:57 Carbon Dioxide 24 mmol/L (22-30) 06/27/17 07:57 Anion Gap 12 (10-20) 06/27/17 07:57 BUN 15 mg/dL (7-17) 06/27/17 07:57 Creatinine 0.5 mg/dL (0.7-1.2) L 06/27/17 07:57 Est GFR ( Amer) > 60 06/27/17 07:57 Est GFR (Non-Af Amer) > 60 06/27/17 07:57 POC Glucose (mg/dL) 73 mg/dL (65-110) 06/27/17 06:40 Random Glucose 74 mg/dL (65-105) 06/27/17 07:57 Calcium 8.6 mg/dl (8.6-10.4) 06/27/17 07:57 Phosphorus 4.1 mg/dL (2.5-4.5) 06/27/17 07:57 Magnesium 1.7 mg/dL (1.6-2.3) 06/27/17 07:57 Total Bilirubin 0.5 mg/dL (0.2-1.3) 06/27/17 07:57 AST 16 U/L (14-36) 06/27/17 07:57 ALT 26 U/L (9-52) 06/27/17 07:57 Alkaline Phosphatase 54 U/L (38-126) 06/27/17 07:57 Total Creatine Kinase 37 U/L (30-135) 06/23/17 12:55 CK-MB (Mass) < 0.22 ng/mL (0.0-3.38) 06/23/17 12:55 Troponin I, Quant < 0.0120 ng/mL (0.00-0.120) 06/23/17 12:55 Total Protein 7.0 g/dL (6.3-8.3) 06/27/17 07:57 Albumin 3.7 g/dL (3.5-5.0) 06/27/17 07:57 Globulin 3.3 gm/dL (2.2-3.9) 06/27/17 07:57 Albumin/Globulin Ratio 1.1 (1.0-2.1) 06/27/17 07:57 Lipase 103 U/L (23-300) 06/21/17 21:59 Thyroxine (T4) 5.09 ug/dL (5.5-11.0) L 06/23/17 06:19 Free T3 pg/mL 1.86 pg/mL (2.77-5.27) L 06/23/17 06:19 Total T3 0.826 nmol/L (1.49-2.60) L 06/23/17 06:19 TSH 3rd Generation 7.94 mIU/L (0.46-4.68) H 06/22/17 11:35 Urine Color Yellow (YELLOW) 06/21/17 22:16 Urine Clarity Clear (Clear) 06/21/17 22:16 Urine pH 7.0 (5.0-8.0) 06/21/17 22:16 Ur Specific [place] 1.028 (1.003-1.030) 06/21/17 22:16 Urine Protein Negative mg/dL (NEGATIVE) 06/21/17 22:16 Urine Glucose (UA) Normal mg/dL (Normal) 06/21/17 22:16 Urine Ketones Negative mg/dL (NEGATIVE) 06/21/17 22:16 Urine Blood Negative (NEGATIVE) 06/21/17 22:16 Urine Nitrate Negative (NEGATIVE) 06/21/17 22:16 Urine Bilirubin Negative (NEGATIVE) 06/21/17 22:16 Urine Urobilinogen 4.0 mg/dL (0.2-1.0) H 06/21/17 22:16 Ur Leukocyte Esterase Neg [place]/uL (Negative) 06/21/17 22:16 Urine WBC (Auto) 1 /hpf (0-5) 10/11/17 22:16 Urine RBC (Auto) 1 /hpf (0-3) 06/21/17 22:16 Ur Squamous Epith Cells 4 /hpf (0-5) 06/21/17 22:16 Urine HCG, Qual Negative (NEGATIVE) 06/21/17 22:16 - Hospital Course Hospital Course: HPI 32F with PMHx of hypothyroidism and partial sigmoidectomy lower anterior resection with anastomosis, presents to the ED with abdominal pain for 3-4 days. Patient states that when the pain gets worse, she becomes short of breath. Patient describes the pain as a sharp, cramping pain and rates the pain as 8/10. Patient stated she started having nausea and vomiting yesterday. Patient tried to eat at 9pm the night before and vomited; pt has not eaten since then. Patient stated she has had a bowel movement at 10pm the night before and it was normal in color and solid. Patient admits to having a history of constipation and did not want to take morphine because she was afraid it would make things worse. Patient denied chest pain, headache, fever, chills, diarrhea, dysuria, hematuria, and hematochezia." Hospital Course: Patient presented to ED with a partial large bowel obstruction versus colonic ileus on 06/21/2017 and was admitted to hospital on 06/22/2017. Pt had history of sigmoid and superior rectal resection on 05/17/17. CT of Abdomen/Pelvis () showed colonic dilation with possible transition point in descending colon; gastroesophageal reflux and dilation of distal esophagus. Pt was hypotensive upon admission and was given 1L bolus of fluid and pressure improved. Pt also presented with asymptomatic bradycardia likely due to abdominal distention from colonic ileus. Surgery team was consulted, per General Surgery consult Dr. Robins, no surgical intervention necessary. Patient was clinically not obstructed due to the ability to pass gas and having normal bowel movements during initial portion of hospital stay. Patient has prior history of hypothyroidism and TSH was 7.[address] Atkinson was consulted and placed patient on PO levothyroxine at 50mcg with plan to titrate up. Patient was not tolerating clear liquid diet ordered by surgery team. liquid diet was discontinued. PO levothyroxine was changed to IVP. During hospital stay, patient developed hypokalemia which resolved after administration of KCl 20meq PO BID. Patient had several courses of vomiting and NGT was inserted on 06/23/2017. Patient had NGT removed on 06/25/2017. Pt had flatus, eructation, and tolerating liquid diet. Repeat abdominal XRay (2016) showed improving dilated loops of bowel from previous study. For nausea, patient was also given Zofran 4mg IVP Q6H PRN. Patient was on 75mcg per levothyroxine at this time. NGT was clamped and patient passed NGT clamp trial. NGT was pulled on 06/25. Pt last bowel movement was 06/24/2017 and was given Dulcolax 5mg PO added to colace on 06/26 Surgery team added dulcolax 10mg PO TID PRN. Pt did not have bowel movement. Patient received a fleet enema on 06/27/2017 and had a small, hard bowel movement. Patient is clinically stable for discharge. For prophylaxis therapy, patient was provided with Protonix for GI protection, as well as SCDs and Heparin 5000u Q12H to prevent DVTs. This is a summary of the patients course of treatment, for more detail please see patient's chart. Patient was discharged with instructions to follow up with [facility] Floor B [phone] in 7 days follow up with Dr. Robins in 7 days [phone] continue levothyroxine 75 mcg POQD per Endocrine follow diet instructions: Day 1 continue on liquid diet (ie: chicken broth) Day 2 soft diet (ie: pudding) Day 3 regular diet as tolerated per Dr. Robins Dulcolax 10mg TID PRN constipation - Date & Time of H&P Date of H&P: 06/27/17 Time of H&P: 15:13 Discharge Exam - Head Exam Head Exam: ATRAUMATIC, NORMAL INSPECTION, NORMOCEPHALIC - Eye Exam Eye Exam: EOMI, Normal appearance - ENT Exam ENT Exam: Mucous Membranes Moist - Respiratory Exam Respiratory Exam: NORMAL BREATHING PATTERN. absent: Accessory Muscle Use, UNREMARKABLE - Cardiovascular Exam Cardiovascular Exam: REGULAR RHYTHM, +S1, +S2. absent: Bradycardia, Tachycardia - Extremities Exam Extremities exam: full ROM - Neurological Exam Neurological exam: Alert, CN II-XII Intact, Oriented x3 - Skin Skin Exam: Dry, Intact, Normal Color, Warm Discharge Plan - Discharge Medications Prescriptions: Bisacodyl [Ducolax] 10 mg RC TID #21 sup - Follow Up Plan Condition: FAIR Disposition: HOME/ ROUTINE Instructions: Laxatives, Stimulant (Suppository) (Into the rectum), Bowel Obstruction (DC) Additional Instructions: follow up with [facility] Floor B [phone] in 7 days follow up with Dr. Robins in 7 days [phone] continue levothyroxine 75 mcg POQD per Endocrine follow diet instructions: Day 1 continue on liquid diet (ie: chicken broth) Day 2 soft diet (ie: pudding) Day 3 regular diet as tolerated per Dr. Robins dulcolax 10mg TID PRN constipation Referrals: Landon Robins MD [Staff Provider] -
[2017-06-27 16:11] VITALS: BP 96/63; PULSE 64; RESP 20; TEMP 98.1; O2SAT 95
[2017-06-27] MEDS ORDERED: Influenza Vaccine 60 mcg/0.5 mL SYR (4YR UP) IM ONE (17:21)
== END 2017-06-27 19:33 | disposition home or self-care (01) | DRG 180 ==
LOC: C.ER 21:13 → C.9E 06-22 06:46 → C.6T 06-22 07:44
PROVIDERS: ADMIT Family Medicine; ATTEND Family Medicine
DX: K56.609 Unspecified intestinal obstruction, unspecified as to partial versus complete obstruction (principal); E11.649 Type 2 diabetes mellitus with hypoglycemia without coma; I95.9 Hypotension, unspecified; E87.6 Hypokalemia; E06.3 Autoimmune thyroiditis; K56.7 Ileus, unspecified; E78.5 Hyperlipidemia, unspecified; I10 Essential (primary) hypertension; K21.9 Gastro-esophageal reflux disease without esophagitis; K29.70 Gastritis, unspecified, without bleeding; Z79.899 Other long term (current) drug therapy; Z91.19 Patient's noncompliance with other medical treatment and regimen; K59.01 Slow transit constipation

== ENCOUNTER 2017-09-15 07:46 | Day surgery (SDC) | payer OTHER ==
[2017-08-28 10:20] VITALS: BMI 22.4
[2017-09-15] MEDS ORDERED: Propofol 10 mg/ml Inj (20 ML) ONE ×2 (09:17→09:24)
[2017-09-15] MEDS ORDERED: Lactated Ringer's 500 ML IV SCH (09:45)
[2017-09-15] MEDS ORDERED: Lidocaine Hydrochloride 5 ML INJ ONE (10:08)
[2017-09-15 10:45] VITALS: TEMP 97
[2017-09-15 10:47] VITALS: BP 104/58; PULSE 46
[2017-09-15 13:10] VITALS: RESP 18; O2SAT 100
--- NOTE | 2017-09-16 14:26 | CARD ---
APPROVED REPORT EKG Measurement Heart [id number] [place] 132P41 [id number] <Conclusion> Marked sinus bradycardia Abnormal ECG
== END 2017-09-15 12:00 | disposition home or self-care (01) ==
LOC: C.ENDO 07:46
PROVIDERS: ATTEND Internal Medicine
DX: R11.10 Vomiting, unspecified (principal); K59.00 Constipation, unspecified; R10.13 Epigastric pain; K29.40 Chronic atrophic gastritis without bleeding; K22.0 Achalasia of cardia; E03.9 Hypothyroidism, unspecified; Z79.899 Other long term (current) drug therapy
CPT/HCPCS: 43239; 84703; 88305; 93005; J2704; J7120

== ENCOUNTER 2017-10-09 10:23 | Day surgery (SDC) | payer OTHER ==
[2017-09-20 09:27] VITALS: BMI 22.4
[2017-10-09] MEDS ORDERED: Lactated Ringer's 1,000 ML IV ONE ×2 (12:26→14:30)
[2017-10-09] MEDS ORDERED: Propofol 10 mg/ml Inj (20 ML) ONE (12:36)
[2017-10-09] MEDS ORDERED: Succinylcholine Chloride 20 mg/ml Syr (5 ml) IV ONE (12:36)
[2017-10-09] MEDS ORDERED: Lactated Ringer's 500 ML IV SCH (13:15)
[2017-10-09 13:58] VITALS: TEMP 99
[2017-10-09 15:32] VITALS: O2SAT 99
[2017-10-09 15:46] VITALS: BP 110/64; PULSE 70; RESP 20
--- NOTE | 2017-10-10 09:32 | RAD ---
PROCEDURE: HISTORY: As Above COMPARISON: None TECHNIQUE: Total fluoroscopic time utilized during the procedure: 30.8 seconds. Total dose 1.44 mGy cm squared FINDINGS: Submitted images from the current procedure: 8 Please refer to the physician's notes performing the procedure. IMPRESSION: Less than 1 hour fluoroscopic time utilized during performance of the procedure
== END 2017-10-09 15:30 | disposition home or self-care (01) ==
LOC: C.ENDO 10:23
PROVIDERS: ATTEND Internal Medicine
DX: K22.0 Achalasia of cardia (principal); R10.13 Epigastric pain; K59.00 Constipation, unspecified; E03.9 Hypothyroidism, unspecified; Z79.899 Other long term (current) drug therapy; Z90.49 Acquired absence of other specified parts of digestive tract
CPT/HCPCS: 43249; 76000; 84703; J2405; J2704; J7120

== ENCOUNTER 2017-10-16 07:41 | Observation (INO) | payer OTHER ==
[2017-10-16 07:42] VITALS: BMI 22.4
[2017-10-16] MEDS ORDERED: Sodium Chloride 0.9% 500 ML IV ONE (08:20)
--- NOTE | 2017-10-16 08:23 | C.PDOC ---
History Of Present Illness 32 y/o female with hx colon sx in May 28, s/p recent endoscopy one week ago for dilation of lower esophageal sphincter. c/o 4 days of pressure like cp that starts in middle of night and resolves spontaneously, and 4 days of upper abdomen pressure like pain. no fever or chills. Time Seen by Provider: 10/16/17 07:55 Chief Complaint (Nursing): Abdominal Pain History Per: Patient, Family Onset/Duration Of Symptoms: Days (4) Current Symptoms Are (Timing): Still Present Severity: Mild Location Of Pain/Discomfort: Epigastric, LLQ Radiation Of Pain To:: None Quality Of Discomfort: Pressure Associated Symptoms: denies: Fever, Chills Last Bowel Movement: Today Past Medical History Reviewed: Historical Data, Nursing Documentation, Vital Signs Vital Signs: Last Vital Signs Temp 98.8 F 10/16/17 17:36 Pulse 70 10/16/17 18:12 Resp 20 10/16/17 17:36 BP 163/88 H 10/16/17 18:12 Pulse Ox 100 10/16/17 17:36 - Medical History PMH: Hyperthyroidism, Hypothyroidism, Migraine Denies: Chronic Kidney Disease Other PMH: colon problems, constipation Surgical History: Endoscopy Other Surgeries: colectomy - [facility] Procedures INSERT OF INFUSION PUMP INTO ABD SUBCU/FASCIA, PERC APPROACH (05/17/17) IRRIGATION OF LOWER GI USING IRRIGATING SUBSTANCE, ENDO (09/05/16) RESECTION OF RECTUM, PERCUTANEOUS ENDOSCOPIC APPROACH (05/17/17) RESECTION OF SIGMOID COLON, PERCUTANEOUS ENDOSCOPIC APPROACH (05/17/17) Family History: States: Unknown Family Hx - Social History Hx Tobacco Use: No Hx Alcohol Use: No Hx Substance Use: No - Immunization History Hx Tetanus Toxoid Vaccination: No Hx Influenza Vaccination: No Hx Pneumococcal Vaccination: No Review Of Systems Constitutional: Negative for: Fever, Chills Cardiovascular: Positive for: Chest Pain (none at present) Respiratory: Negative for: Cough Gastrointestinal: Positive for: Abdominal Pain. Negative for: Nausea, Vomiting , Diarrhea, Constipation Genitourinary: Negative for: Dysuria Skin: Negative for: Rash Neurological: Negative for: Weakness, Numbness Physical Exam - Physical Exam Appears: Non-toxic, No Acute Distress Skin: Warm, Dry Head: Atraumatic, Normacephalic Oral Mucosa: Moist Neck: Supple Chest: No Deformity, No Tenderness Cardiovascular: Rhythm Regular, No Murmur Respiratory: No Decreased Breath Sounds, No Wheezing Gastrointestinal/Abdominal: Bowel Sounds, Soft, Tenderness (epigastric and llq, ), No Distention, No Guarding, No Rebound, Other (vertical well healed incision lower abdomen) Back: No CVA Tenderness ED Course And Treatment - Laboratory Results Result Diagrams: 10/16/17 08:40 10/16/17 09:01 ECG: Interpreted By Me, Viewed By Me ECG Rhythm: Sinus Bradycardia Rate From EC O2 Sat by Pulse Oximetry: 100 (On RA) Pulse Ox Interpretation: Normal Medical Decision Making Medical Decision Making: Dr Brand- message left with service 830 am Discussed with GI, will get labs, abdominal ct. [address] scan result review. possible early obstruction. Dr Robins paged. [address] Winston; will admit to his service, surgical brace maker paged. Disposition Discussed With : Landon Robins Doctor Will See Patient In The: Hospital - Disposition Disposition: HOSPITALIZED Disposition Time: 12:58 Condition: STABLE - Clinical Impression Clinical Impression: Constipation, Abdominal pain
[2017-10-16] MEDS ORDERED: Sodium Chloride 0.9% 1,000 ML ONE (08:33)
[2017-10-16 08:38] LABS: BASO % 0.6 % (0.0-2.0); EOS # 0.2 K/uL (0.0-0.7); HEMOGLOBIN 10.2 g/dL (11.0-16.0); LYMPH % 26.6 % (20.0-40.0); MEAN CORPUSCULAR HEMOGLOBIN 30.4 pg (27.0-31.0); MEAN CORPUSCULAR HGB CONC 34.6 g/dL (33.0-37.0); MEAN PLATELET VOLUME 8.2 fL (7.2-11.7); MONO # 0.4 K/uL (0.0-0.8); MONO % 6.1 % (0.0-10.0); NEUT # 4.7 K/uL (1.8-7.0); NEUT % 63.7 % (50.0-75.0); NRBC % 0.1 % (0.0-2.0); RBC 3.37 Mil/uL (3.80-5.20); RED CELL DISTRIBUTION WIDTH 14.3 % (11.5-14.5); WHITE BLOOD COUNT 7.3 K/uL (4.8-10.8)
[2017-10-16 08:40] LABS: MEAN CELL VOLUME 87.7 fL (81.0-99.0)
[2017-10-16] MEDS ORDERED: Iohexol 240 (50 ml) PO ONE (08:45)
[2017-10-16 08:56] LABS: SQUAMOUS EPITHIAL 7 /hpf (0-5); URINE BILIRUBIN NEGATIVE (NEGATIVE); URINE BLOOD 3+ (NEGATIVE); URINE CLARITY Hazy (Clear); URINE COLOR Red (YELLOW); URINE GLUCOSE (UA) 1+ mg/dL (Normal); URINE LEUKOCYTE ESTERASE 1+ Leu/uL (Negative); URINE NITRATE NEGATIVE (NEGATIVE); URINE PROTEIN 2+ mg/dL (NEGATIVE); URINE UROBILINOGEN NORMAL mg/dL (0.2-1.0)
[2017-10-16 08:58] LABS: URINE BACTERIA RARE (<OCC)
[2017-10-16 09:14] LABS: ALB/GLOB RATIO 1.1 (1.0-2.1); ALBUMIN 3.3 g/dL (3.5-5.0); ALT/SGPT 18 U/L (9-52); AST/SGOT 19 U/L (14-36); BLOOD UREA NITROGEN 15 mg/dL (7-17); CALCIUM 7.9 mg/dl (8.6-10.4); GFR AFRICAN-AMERICAN > 60; GFR NON-AFRICAN AMERICAN > 60; LIPASE 109 U/L (23-300)
[2017-10-16] MEDS ORDERED: Iohexol 240 (50 ml) ONE (09:16)
[2017-10-16] MEDS ORDERED: Iohexol 300 100 ML IJ ONE (11:39)
--- NOTE | 2017-10-16 12:19 | CT ---
PROCEDURE: CT Abdomen and Pelvis with contrast HISTORY: epigastric and llq pain, hx ab sx, lbo COMPARISON: 06/22/2017 and 04/27/2016 TECHNIQUE: Contrast dose: 100 mL Omnipaque 300 Radiation dose: Total exam DLP = 28.51 mGy-cm. This CT exam was performed using one or more of the following dose reduction techniques: Automated exposure control, adjustment of the mA and/or kV according to patient size, and/or use of iterative reconstruction technique. FINDINGS: LOWER THORAX: Unremarkable. LIVER: Mild hepatomegaly. The liver measures approximately 20 cm craniocaudal. Smooth contour. There is a solitary nonspecific low-attenuation mass in the dome of the liver measuring 2.3 cm in greatest dimension. There is a nodular focus of enhancement within this low-density mass, as on all prior examinations. No biliary dilatation. GALLBLADDER AND BILE DUCTS: Unremarkable. PANCREAS: Unremarkable. No gross lesion or ductal dilatation. SPLEEN: Unremarkable. ADRENALS: Unremarkable. No mass. KIDNEYS AND URETERS: Unremarkable. No hydronephrosis. No solid mass. VASCULATURE: Unremarkable. No aortic aneurysm. BOWEL: There is moderate retained feces. There is moderate colonic dilatation up to 7 mm diameter in the transverse colon. Multiple dilated loops of small bowel are appreciated. These measure up to 3 cm. The significance uncertain. Cannot rule out early mechanical bowel obstruction. There is no oral contrast seen within the colon at this time. If there is clinical concern for mechanical small-bowel obstruction and followup abdominal CT in several hours is advised to assess for passage of contrast material to the colon. There is evidence of surgical anastomosis at the rectosigmoid junction. APPENDIX: Normal appendix. PERITONEUM: Unremarkable. No free fluid. No free air. LYMPH NODES: Unremarkable. No enlarged lymph nodes. BLADDER: Unremarkable. REPRODUCTIVE: Normal uterus BONES: No acute fracture. OTHER FINDINGS: None. IMPRESSION: Moderate retained feces with moderate colonic dilatation likely reflecting constipation. Cannot rule out early mechanical bowel obstruction. Multiple mildly dilated small bowel loops up to 3 cm diameter. If clinical concern for mechanical bowel obstruction consider follow-up abdominal CT in several hours to assess for passage of oral contrast into the colon. Additional minor findings as above.
--- NOTE | 2017-10-16 14:30 | CP.PCM.HP ---
History of Present Illness - History of Present Illness History of Present Illness: General surgery H & P for Dr. Maite Valdovinos, PGY-1 Pt S & E at bedside. 32F w/PMH sig for hx of chronic constipation s/p Laparoscopic sigmoid and upper rectal resection (05/2017) admitted for abdominal pain x 4 days. Pt reports similar episode in July. Pain is epigastric, non radiating, intermittent, moderate-severe. Pt reports recent EGD w/balloon dilitation. Admits to flatus, BM x 4 on day of admission. Denies N & V, F & C, abdominal distention, constipation, diarrhea, changes in bladder habits, other complaints. In ED - CT abdomen w/Mod retained feces w/mod colonic dilatation- constipation. Multiple mildly dilated SB loops up to 3 cm diameter. No leukocytosis, afebrile. PMH: hyperthyroidism, hx chronic constipation PSH: Laparoscopic sigmoid and upper rectal resection All: NKDA SH: Denies ETOH, tobacco or illicit drug use Present on Admission - Present on Admission Any Indicators Present on Admission: No History of DVT/PE: No History of Uncontrolled Diabetes: No Urinary Catheter: No Decubitus Ulcer Present: No Review of Systems - Review of Systems All systems: reviewed and no additional remarkable complaints except - Constitutional Constitutional: absent: Chills, Fever, Weakness - EENT Ears: absent: Dizziness Nose/Mouth/Throat: absent: Sore Throat - Cardiovascular Cardiovascular: absent: Chest Pain, Palpitations - Respiratory Respiratory: absent: Cough - Gastrointestinal Gastrointestinal: Abdominal Pain. absent: Change in Bowel Habits, Diarrhea, Hematemesis, Hematochezia, Melena, Nausea, Vomiting - Genitourinary Genitourinary: absent: Change in Urinary Stream, Dysuria - Musculoskeletal Musculoskeletal: absent: Numbness, Tingling - Integumentary Integumentary: absent: Rash - Psychiatric Psychiatric: absent: Anxiety Past Patient History - Infectious Disease Hx of Infectious Diseases: None - Past Medical History & Family History Past Medical History?: Yes - Past Social History Smoking Status: Never Smoked - CARDIAC Hx Cardiac Disorders: No - PULMONARY Hx Respiratory Disorders: No - NEUROLOGICAL Hx Migraine: Yes - HEENT Hx HEENT Problems: No - RENAL Hx Chronic Kidney Disease: No - ENDOCRINE/METABOLIC Hx Hyperthyroidism: Yes Hx Hypothyroidism: Yes - HEMATOLOGICAL/ONCOLOGICAL Hx Blood Disorders: No - INTEGUMENTARY Hx Dermatological Problems: No - MUSCULOSKELETAL/RHEUMATOLOGICAL Hx Musculoskeletal Disorders: Yes Hx Back Pain: Yes - GASTROINTESTINAL Hx Gastrointestinal Disorders: Yes Hx Bowel Surgery: Yes (PARTIAL COLECTOMY) Other/Comment: CHRONIC CONSTIPATION, CHAGAS SYNDROME, ACHALASIA - GENITOURINARY/GYNECOLOGICAL Hx Genitourinary Disorders: No - PSYCHIATRIC Hx Substance Use: No - SURGICAL HISTORY Hx Surgeries: Yes Other/Comment: OPERATION ON THE INTESTINE PT HAD CHRONIC CONSTIPATION AND HAD PARTIAL REMOVAL OF COLON - ANESTHESIA Hx Anesthesia: Yes Hx Anesthesia Reactions: No Hx Malignant Hyperthermia: No Meds Allergies/Adverse Reactions: Allergies Allergy/AdvReac Type Severity Reaction Status Date / Time No Known Allergies Allergy Verified 10/16/17 07:52 Physical Exam - Constitutional Appears: Non-toxic, No Acute Distress - Head Exam Head Exam: ATRAUMATIC, NORMAL INSPECTION, NORMOCEPHALIC - Eye Exam Eye Exam: EOMI, Normal appearance - ENT Exam ENT Exam: Mucous Membranes Moist, Normal Exam - Neck Exam Neck exam: Positive for: Full Rom, Normal Inspection - Respiratory Exam Respiratory Exam: Clear to Auscultation Bilateral, NORMAL BREATHING PATTERN. absent: Rales, Rhonchi, Wheezes, Respiratory Distress - Cardiovascular Exam Cardiovascular Exam: REGULAR RHYTHM, +S1, +S2 - GI/Abdominal Exam GI & Abdominal Exam: Normal Bowel Sounds, Soft, Tenderness (mild, epigastric). absent: Distended, Firm, Guarding, Hernia, Rebound, Rigid Additional comments: well healed midline incision - Extremities Exam Extremities exam: Positive for: normal inspection. Negative for: pedal edema - Neurological Exam Neurological exam: Alert, CN II-XII Intact, Oriented x3 - Psychiatric Exam Psychiatric exam: Normal Affect, Normal Mood - Skin Skin Exam: Dry, Intact, Normal Color, Warm Results - Vital Signs Recent Vital Signs: Last Vital Signs Temp 98.4 F 10/16/17 07:48 Pulse 62 10/16/17 12:19 Resp 20 10/16/17 12:19 BP 102/53 L 10/16/17 12:19 Pulse Ox 100 10/16/17 12:59 - Labs Result Diagrams: 10/16/17 08:40 10/16/17 09:01 Labs: Laboratory Results - last 24 hr 10/16/17 10/16/17 10/16/17 08:20 08:40 09:01 WBC 7.3 RBC 3.37 L Hgb 10.2 L Hct 29.5 L MCV 87.7 D MCH 30.4 MCHC 34.6 RDW 14.3 Plt Count 246 MPV 8.2 Neut % (Auto) 63.7 Lymph % (Auto) 26.6 [place] % (Auto) 6.1 Eos % (Auto) 3.0 Baso % (Auto) 0.6 Neut # (Auto) 4.7 Lymph # (Auto) 2.0 [place] # (Auto) 0.4 Eos # (Auto) 0.2 Baso # (Auto) 0.0 Sodium 138 Potassium 3.6 Chloride 104 Carbon Dioxide 25 Anion Gap 13 BUN 15 Creatinine 0.6 L Est GFR ( Amer) > 60 Est GFR (Non-Af Amer) > 60 Random Glucose 83 Calcium 7.9 L Total Bilirubin 0.2 AST 19 ALT 18 Alkaline Phosphatase 38 D Total Protein 6.4 Albumin 3.3 L Globulin 3.0 Albumin/Globulin Ratio 1.1 Lipase 109 Urine Color Red Urine Clarity Hazy Urine pH 5.0 Ur Specific [place] 1.026 Urine Protein 2+ H Urine Glucose (UA) 1+ Urine Ketones Negative Urine Blood 3+ H Urine Nitrate Negative Urine Bilirubin Negative Urine Urobilinogen Normal Ur Leukocyte Esterase 1+ H Urine WBC (Auto) 2 Urine RBC (Auto) 23196 H Ur Squamous Epith Cells 7 H Urine Bacteria Rare Assessment & Plan - Assessment and Plan (Free Text) Assessment: 32F w/abdominal pain Plan: Admit to med surg VS Q8H NPO Pain control IVF Serial ab exam Will consider placing NGT if pt develops abdominal pain GI/DVT ppx OOBTC Ambulate DW attending Aruna, PGY-1 - Date & Time Date: 10/16/17 Time: 13:03 Decision To Admit - Pt Status Changed To: Hospital Disposition Of: Observation - . Bed Request Type: Regular Admitting Physician: Landon Robins
[2017-10-16] MEDS: Sodium Chloride 0.9% 1,000 ML IV SCH (15:00)
[2017-10-17] MEDS: Sodium Chloride 0.9% 1,000 ML IV SCH ×2 (00:07→09:04)
[2017-10-17 08:15] VITALS: BP 99/64; PULSE 61; RESP 20; TEMP 97.7; O2SAT 97
--- NOTE | 2017-10-17 09:55 | CP.PCM.DIS ---
Provider - Provider Date of Admission: 10/16/17 12:55 Attending physician: Landon Robins MD Primary care physician: Dr. Robins Consults: None Time Spent in preparation of Discharge (in minutes): 35 Hospital Course - Lab Results Lab Results: Most Recent Lab Values WBC 7.3 K/uL (4.8-10.8) 10/16/17 08:40 RBC 3.37 Mil/uL (3.80-5.20) L 10/16/17 08:40 Hgb 10.2 g/dL (11.0-16.0) L 10/16/17 08:40 Hct 29.5 % (34.0-47.0) L 10/16/17 08:40 MCV 87.7 fL (81.0-99.0) D 10/16/17 08:40 MCH 30.4 pg (27.0-31.0) 10/16/17 08:40 MCHC 34.6 g/dL (33.0-37.0) 10/16/17 08:40 RDW 14.3 % (11.5-14.5) 10/16/17 08:40 Plt Count 246 K/uL (130-400) 10/16/17 08:40 MPV 8.2 fL (7.2-11.7) 10/16/17 08:40 Neut % (Auto) 63.7 % (50.0-75.0) 10/16/17 08:40 Lymph % (Auto) 26.6 % (20.0-40.0) 10/16/17 08:40 [place] % (Auto) 6.1 % (0.0-10.0) 10/16/17 08:40 Eos % (Auto) 3.0 % (0.0-4.0) 10/16/17 08:40 Baso % (Auto) 0.6 % (0.0-2.0) 10/16/17 08:40 Neut # (Auto) 4.7 K/uL (1.8-7.0) 10/16/17 08:40 Lymph # (Auto) 2.0 K/uL (1.0-4.3) 10/16/17 08:40 [place] # (Auto) 0.4 K/uL (0.0-0.8) 10/16/17 08:40 Eos # (Auto) 0.2 K/uL (0.0-0.7) 10/16/17 08:40 Baso # (Auto) 0.0 K/uL (0.0-0.2) 10/16/17 08:40 Sodium 138 mmol/L (132-148) 10/16/17 09:01 Potassium 3.6 mmol/L (3.6-5.2) 10/16/17 09:01 Chloride 104 mmol/L (98-107) 10/16/17 09:01 Carbon Dioxide 25 mmol/L (22-30) 10/16/17 09:01 Anion Gap 13 (10-20) 10/16/17 09:01 BUN 15 mg/dL (7-17) 10/16/17 09:01 Creatinine 0.6 mg/dL (0.7-1.2) L 10/16/17 09:01 Est GFR ( Amer) > 60 10/16/17 09:01 Est GFR (Non-Af Amer) > 60 10/16/17 09:01 Random Glucose 83 mg/dL (65-105) 10/16/17 09:01 Calcium 7.9 mg/dl (8.6-10.4) L 10/16/17 09:01 Total Bilirubin 0.2 mg/dL (0.2-1.3) 10/16/17 09:01 AST 19 U/L (14-36) 10/16/17 09:01 ALT 18 U/L (9-52) 10/16/17 09:01 Alkaline Phosphatase 38 U/L (38-126) D 10/16/17 09:01 Total Protein 6.4 g/dL (6.3-8.3) 10/16/17 09:01 Albumin 3.3 g/dL (3.5-5.0) L 10/16/17 09:01 Globulin 3.0 gm/dL (2.2-3.9) 10/16/17 09:01 Albumin/Globulin Ratio 1.1 (1.0-2.1) 10/16/17 09:01 Lipase 109 U/L (23-300) 10/16/17 09:01 Urine Color Red (YELLOW) 10/16/17 08:20 Urine Clarity Hazy (Clear) 10/16/17 08:20 Urine pH 5.0 (5.0-8.0) 10/16/17 08:20 Ur Specific [place] 1.026 (1.003-1.030) 10/16/17 08:20 Urine Protein 2+ mg/dL (NEGATIVE) H 10/16/17 08:20 Urine Glucose (UA) 1+ mg/dL (Normal) 10/16/17 08:20 Urine Ketones Negative mg/dL (NEGATIVE) 10/16/17 08:20 Urine Blood 3+ (NEGATIVE) H 10/16/17 08:20 Urine Nitrate Negative (NEGATIVE) 10/16/17 08:20 Urine Bilirubin Negative (NEGATIVE) 10/16/17 08:20 Urine Urobilinogen Normal mg/dL (0.2-1.0) 10/16/17 08:20 Ur Leukocyte Esterase 1+ [place]/uL (Negative) H 10/16/17 08:20 Urine WBC (Auto) 2 /hpf (0-5) 10/16/17 08:20 Urine RBC (Auto) 20172 /hpf (0-3) H 10/16/17 08:20 Ur Squamous Epith Cells 7 /hpf (0-5) H 10/16/17 08:20 Urine Bacteria Rare (<OCC) 10/16/17 08:20 - Hospital Course Hospital Course: 32F w/PMH sig for hx of chronic constipation s/p Laparoscopic sigmoid and upper rectal resection (05/2017) admitted for abdominal pain x 4 days. Pt has been having BMs, flatus- recently seen by GI with EGD balloon dilitation. CT abdomen without free air or signs of perforation, no signs of peritonitis. Pt continues to have BMs and flatus, abdominal pain improved with PPI. Pt stable and ready for discharge home. - Date & Time of H&P Date of H&P: 10/16/17 Time of H&P: 14:18 Discharge Exam - Head Exam Head Exam: ATRAUMATIC, NORMAL INSPECTION, NORMOCEPHALIC - Eye Exam Eye Exam: EOMI, Normal appearance - ENT Exam ENT Exam: Mucous Membranes Moist, Normal Exam - Neck Exam Neck exam: Full Rom, Normal Inspection - Respiratory Exam Respiratory Exam: NORMAL BREATHING PATTERN, UNREMARKABLE - Cardiovascular Exam Cardiovascular Exam: REGULAR RHYTHM, +S1, +S2 - GI/Abdominal Exam GI & Abdominal Exam: Soft, Unremarkable. absent: Distended, Firm, Guarding, Tenderness - Extremities Exam Extremities exam: normal inspection - Neurological Exam Neurological exam: Alert, CN II-XII Intact, Oriented x3 - Psychiatric Exam Psychiatric exam: Normal Affect, Normal Mood - Skin Skin Exam: Dry, Intact, Normal Color, Warm Discharge Plan - Follow Up Plan Condition: GOOD Disposition: HOME/ ROUTINE Instructions: Acute Abdominal Pain (DC), Acute Abdominal Pain (GEN) Additional Instructions: Please eat flax seed with your regular diet. Please cook with coconut oil, take a teaspoon of coconut oil with meals. Continue liquid diet until Monday. Please follow up with Dr. Robins as needed. Referrals: Landon Robins MD [Staff Provider] -
--- NOTE | 2017-10-17 11:57 | CARD ---
APPROVED REPORT EKG Measurement Heart [id number] <Conclusion> Sinus bradycardia Cannot rule out Inferior infarct, age undetermined Abnormal ECG
== END 2017-10-17 14:13 | disposition home or self-care (01) ==
LOC: C.ER 07:41 → C.9E 12:55 → C.5S 17:01
PROVIDERS: ADMIT Surgery Surgical Critical Care; ATTEND Surgery Surgical Critical Care
DX: R10.13 Epigastric pain (principal); K59.09 Other constipation; E03.9 Hypothyroidism, unspecified
CPT/HCPCS: 74177; 80053; 81001; 83690; 85025; 93005; 96361; 96374; 99285; G0378; J7040; Q9966; Q9967

== ENCOUNTER 2018-05-04 19:14 | Inpatient (IN) | payer SELFPAY ==
[2018-05-04 19:14] VITALS: BMI 23.2
[2018-05-04] MEDS ORDERED: Sodium Chloride 0.9% 1,000 ML IV ONE (20:35)
--- NOTE | 2018-05-04 20:37 | C.PDOC ---
History Of Present Illness Patient presents to the ER with a complaint of a sharp, stabbing abdominal pain and nausea worsening over the past week. Denies vomiting, diarrhea, fever, or chills. Time Seen by Provider: 05/04/18 20:01 Chief Complaint (Nursing): Abdominal Pain History Per: Patient History/Exam Limitations: no limitations Onset/Duration Of Symptoms: Days Current Symptoms Are (Timing): Still Present Severity: Moderate Pain Scale Rating Of: 5 Location Of Pain/Discomfort: Diffuse, Epigastric Radiation Of Pain To:: None Quality Of Discomfort: Sharp, Stabbing Associated Symptoms: Nausea. denies: Fever, Chills, Vomiting, Diarrhea Exacerbating Factors: None Alleviating Factors: None Recent travel outside of the [place]: No Past Medical History Reviewed: Historical Data, Nursing Documentation, Vital Signs Vital Signs: Last Vital Signs Temp 98.0 F 05/05/18 02:50 Pulse 52 L 05/05/18 02:50 Resp 17 05/05/18 02:50 BP 87/53 L 05/05/18 02:50 Pulse Ox 100 05/05/18 02:50 - Medical History PMH: Hyperthyroidism, Hypothyroidism, Migraine, Post Traumatic Stress Disorder Denies: Chronic Kidney Disease Surgical History: Endoscopy - [facility] Procedures INSERT OF INFUSION PUMP INTO ABD SUBCU/FASCIA, PERC APPROACH (05/17/17) IRRIGATION OF LOWER GI USING IRRIGATING SUBSTANCE, ENDO (09/05/16) RESECTION OF RECTUM, PERCUTANEOUS ENDOSCOPIC APPROACH (05/17/17) RESECTION OF SIGMOID COLON, PERCUTANEOUS ENDOSCOPIC APPROACH (05/17/17) Family History: States: No Known Family Hx - Social History Hx Tobacco Use: No Hx Alcohol Use: No Hx Substance Use: No - Immunization History Hx Tetanus Toxoid Vaccination: No Hx Influenza Vaccination: No Hx Pneumococcal Vaccination: No Review Of Systems Constitutional: Negative for: Fever, Chills Cardiovascular: Negative for: Chest Pain, Palpitations Respiratory: Negative for: Cough, Shortness of Breath Gastrointestinal: Positive for: Nausea, Abdominal Pain. Negative for: Vomiting , Diarrhea Genitourinary: Negative for: Dysuria, Hematuria Skin: Negative for: Rash Physical Exam - Physical Exam Appears: Non-toxic Skin: Warm, Dry Head: Normacephalic Oral Mucosa: Dry Chest: Symmetrical, No Tenderness Cardiovascular: Rhythm Regular Respiratory: No Rales, No Rhonchi, No Wheezing Gastrointestinal/Abdominal: Soft, Tenderness (Diffuse, more to mid epigastric), No Guarding, No Rebound Neurological/Psych: Oriented x3 ED Course And Treatment - Laboratory Results Result Diagrams: 05/04/18 20:41 05/04/18 20:43 O2 Sat by Pulse Oximetry: 100 (Room air) Pulse Ox Interpretation: Normal Progress Note: Blood work and urinalysis ordered. IV fluids, morphine, pepcid, and zofran administered. Disposition Discussed With Dr.: Julien Chu Comment: accepted the pt on his service and took over the care at 1:51 AM Doctor Will See Patient In The: ED Counseled Patient/Family Regarding: Studies Performed, Diagnosis - Disposition Disposition: HOSPITALIZED Disposition Time: 21:00 Condition: FAIR - POA Present On Arrival: None - Clinical Impression Clinical Impression: Abdominal pain, Nausea, Large bowel obstruction - Scribe Statement The provider has reviewed the documentation as recorded by the Scribe Puneet Oliveira All medical record entries made by the Scribe were at my direction and personally dictated by me. I have reviewed the chart and agree that the record accurately reflects my personal performance of the history, physical exam, medical decision making, and the department course for this patient. I have also personally directed, reviewed, and agree with the discharge instructions and disposition. Decision To Admit - Pt Status Changed To: Hospital Disposition Of: Inpatient - Admit Certification Admit to Inpatient:: After my assessment, the patient will require hospitalization for at least two midnights. This is because of the severity of symptoms shown, intensity of services needed, and/or the medical risk in this patient being treated as an outpatient. - InPatient: Physician Admission Certification:: After my assessment, the patient will require hospitalization for at least two midnights. This is because of the severity of symptoms shown, intensity of services needed, and/or the medical risk in this patient being treated as an outpatient. - . Bed Request Type: Regular Admitting Physician: Julien Chu Patient Diagnosis: Abdominal pain, Nausea, Large bowel obstruction
[2018-05-04 20:46] LABS: BASO % 0.6 % (0.0-2.0); EOS # 0.2 K/uL (0.0-0.7); EOS % 2.2 % (0.0-4.0); HEMOGLOBIN 12.4 g/dL (11.0-16.0); LYMPH % 27.1 % (20.0-40.0); MEAN CELL VOLUME 86.8 fL (81.0-99.0); MEAN CORPUSCULAR HEMOGLOBIN 29.3 pg (27.0-31.0); MEAN CORPUSCULAR HGB CONC 33.8 g/dL (33.0-37.0); MEAN PLATELET VOLUME 9.2 fL (7.2-11.7); MONO # 0.4 K/uL (0.0-0.8); MONO % 5.1 % (0.0-10.0); NEUT # 4.8 K/uL (1.8-7.0); NRBC % 0.1 % (0.0-2.0); RBC 4.23 Mil/uL (3.80-5.20); WHITE BLOOD COUNT 7.4 K/uL (4.8-10.8)
[2018-05-04] MEDS ORDERED: Sodium Chloride 0.9% 1,000 ML ONE (20:47)
[2018-05-04 20:52] LABS: INR 1.1; PROTHROMBIN TIME 11.9 SECONDS (9.7-12.2)
[2018-05-04 20:57] LABS: HCG,QUALITATIVE URINE NEGATIVE (NEGATIVE)
[2018-05-04 20:58] LABS: SQUAMOUS EPITHIAL 3 /hpf (0-5); URINE BACTERIA RARE (<OCC); URINE BILIRUBIN NEGATIVE (NEGATIVE); URINE BLOOD 1+ (NEGATIVE); URINE CLARITY Clear (Clear); URINE COLOR Amber (YELLOW); URINE GLUCOSE (UA) NORMAL (Normal); URINE LEUKOCYTE ESTERASE NEG Leu/uL (Negative); URINE PROTEIN NEGATIVE (NEGATIVE); URINE UROBILINOGEN NORMAL mg/dL (0.2-1.0)
[2018-05-04 21:05] LABS: CALCIUM 8.7 mg/dl (8.6-10.4); GFR NON-AFRICAN AMERICAN > 60; LIPASE 147 U/L (23-300)
[2018-05-04 21:09] LABS: ALB/GLOB RATIO 1.4 (1.0-2.1); ALBUMIN 4.7 g/dL (3.5-5.0); ALT/SGPT 12 U/L (9-52); AST/SGOT 54 U/L (14-36); BLOOD UREA NITROGEN 14 mg/dL (7-17)
[2018-05-04] MEDS ORDERED: Iodixanol 320 MG/ML 100 ML BOTTLE IV ONE (21:53)
[2018-05-04] MEDS ORDERED: Morphine 4 MG/ML VIAL IV STA (22:40)
[2018-05-05] MEDS ORDERED: Sodium Chloride 0.9% 1,000 ML IV ONE (01:50)
--- NOTE | 2018-05-05 01:55 | CP.PCM.HP ---
<Natasha Fallon - Last Filed: 05/05/18 09:55> History of Present Illness - History of Present Illness History of Present Illness: GENERAL SURGERY HISTORY AND PHYSICAL FOR DR. ROBINS 33yo F with PMHx of hypothyroidism, chronic constipation s/p sigmoid resection, PTSD, achalasia s/p EGD with balloon dilation presents to the ED with abdominal pain. The pain began at 3AM yesterday and woke her up from sleep. The pain worsened over that day prompting her to come to the ED. She reports nausea but no vomiting. Last BM 6PM. Pain improved after morphine in ED. Pt reports that since her surgery, her constipation has improved overall. CT in ED showed: massive dilation of ascending and transverse colon which are diffusely gas filled w/ small to moderate amount f stool, focal transition point in left mid abdomen with decompression of descending colon, possible large bowel obstruction PMHx: hypothyroidism, hx chronic constipation, PTSD, achalasia s/p EGD with balloon dilation 10/10/17 PSH: Laparoscopic sigmoid and superior rectal resection for chronic constipation /redundant sigmoid 05/17/17 All: NKDA Meds: levothyroxine, colace, miralax Present on Admission - Present on Admission Any Indicators Present on Admission: No Review of Systems - Review of Systems All systems: reviewed and no additional remarkable complaints except (as per HPI ) Past Patient History - Infectious Disease Hx of Infectious Diseases: None - Past Medical History & Family History Past Medical History?: Yes - Past Social History Smoking Status: Never Smoked - CARDIAC Hx Cardiac Disorders: No - PULMONARY Hx Respiratory Disorders: No - NEUROLOGICAL Hx Migraine: Yes - HEENT Hx HEENT Problems: No - RENAL Hx Chronic Kidney Disease: No - ENDOCRINE/METABOLIC Hx Hyperthyroidism: Yes Hx Hypothyroidism: Yes - HEMATOLOGICAL/ONCOLOGICAL Hx Blood Disorders: No - INTEGUMENTARY Hx Dermatological Problems: No - MUSCULOSKELETAL/RHEUMATOLOGICAL Hx Musculoskeletal Disorders: Yes Hx Back Pain: Yes Hx Falls: No - GASTROINTESTINAL Hx Gastrointestinal Disorders: Yes Hx Bowel Surgery: Yes (PARTIAL COLECTOMY) Hx Constipation: Yes Other/Comment: CHRONIC CONSTIPATION, CHAGAS SYNDROME, ACHALASIA - GENITOURINARY/GYNECOLOGICAL Hx Genitourinary Disorders: No - PSYCHIATRIC Hx Post Traumatic Stress Disorder: Yes Hx Substance Use: No - SURGICAL HISTORY Hx Surgeries: Yes Other/Comment: OPERATION ON THE INTESTINE PT HAD CHRONIC CONSTIPATION AND HAD PARTIAL REMOVAL OF COLON - ANESTHESIA Hx Anesthesia: Yes Hx Anesthesia Reactions: No Hx Malignant Hyperthermia: No Meds Allergies/Adverse Reactions: Allergies Allergy/AdvReac Type Severity Reaction Status Date / Time No Known Allergies Allergy Verified 10/16/17 07:52 Physical Exam - Constitutional Appears: Well, Non-toxic, No Acute Distress - Head Exam Head Exam: ATRAUMATIC, NORMAL INSPECTION - Eye Exam Eye Exam: EOMI, Normal appearance - Respiratory Exam Respiratory Exam: NORMAL BREATHING PATTERN. absent: Respiratory Distress - Cardiovascular Exam Cardiovascular Exam: +S1, +S2 - GI/Abdominal Exam GI & Abdominal Exam: Distended (mild), Soft, Tenderness (mild tenderness to deep palpation of epigastric area). absent: Firm, Guarding, Rebound, Rigid - Neurological Exam Neurological exam: Alert, CN II-XII Intact, Oriented x3 - Psychiatric Exam Psychiatric exam: Normal Affect, Normal Mood - Skin Skin Exam: Dry, Warm Results - Vital Signs Recent Vital Signs: Last Vital Signs Temp 97.7 F 05/05/18 01:10 Pulse 54 L 05/05/18 01:53 Resp 13 05/05/18 01:53 BP 102/56 L 05/05/18 01:53 Pulse Ox 100 05/05/18 01:54 - Labs Result Diagrams: 05/05/18 07:37 05/05/18 07:37 Labs: Laboratory Results - last 24 hr 05/04/18 05/04/18 05/04/18 20:41 20:43 20:43 WBC 7.4 RBC 4.23 Hgb 12.4 D Hct 36.7 MCV 86.8 MCH 29.3 MCHC 33.8 RDW 15.0 H Plt Count 276 MPV 9.2 Neut % (Auto) 65.0 Lymph % (Auto) 27.1 [place] % (Auto) 5.1 Eos % (Auto) 2.2 Baso % (Auto) 0.6 Neut # (Auto) 4.8 Lymph # (Auto) 2.0 [place] # (Auto) 0.4 Eos # (Auto) 0.2 Baso # (Auto) 0.0 PT INR APTT Sodium 140 Potassium 5.5 H Chloride 106 Carbon Dioxide 21 L Anion Gap 18 BUN 14 Creatinine 0.6 L Est GFR ( Amer) > 60 Est GFR (Non-Af Amer) > 60 Random Glucose 100 Calcium 8.7 Total Bilirubin 1.5 H AST 54 H D ALT 12 Alkaline Phosphatase 49 Total Protein 8.1 Albumin 4.7 Globulin 3.4 Albumin/Globulin Ratio 1.4 Lipase 147 Urine Color Lois Urine Clarity Clear Urine pH 6.0 Ur Specific [place] 1.023 Urine Protein Negative Urine Glucose (UA) Normal Urine Ketones Negative Urine Blood 1+ H Urine Nitrate Negative Urine Bilirubin Negative Urine Urobilinogen Normal Ur Leukocyte Esterase Neg Urine WBC (Auto) 2 Urine RBC (Auto) 8 H Ur Squamous Epith Cells 3 Urine Bacteria Rare Urine HCG, Qual Negative 05/04/18 20:44 WBC RBC Hgb Hct MCV MCH MCHC RDW Plt Count MPV Neut % (Auto) Lymph % (Auto) [place] % (Auto) Eos % (Auto) Baso % (Auto) Neut # (Auto) Lymph # (Auto) [place] # (Auto) Eos # (Auto) Baso # (Auto) PT 11.9 INR 1.1 APTT 31 Sodium Potassium Chloride Carbon Dioxide Anion Gap BUN Creatinine Est GFR ( Amer) Est GFR (Non-Af Amer) Random Glucose Calcium Total Bilirubin AST ALT Alkaline Phosphatase Total Protein Albumin Globulin Albumin/Globulin Ratio Lipase Urine Color Urine Clarity Urine pH Ur Specific [place] Urine Protein Urine Glucose (UA) Urine Ketones Urine Blood Urine Nitrate Urine Bilirubin Urine Urobilinogen Ur Leukocyte Esterase Urine WBC (Auto) Urine RBC (Auto) Ur Squamous Epith Cells Urine Bacteria Urine HCG, Qual Assessment & Plan - Assessment and Plan (Free Text) Assessment: 33yo F with PMHx of hypothyroidism, chronic constipation s/p sigmoid resection, PTSD, achalasia s/p EGD with balloon dilation presents with abdominal pain and CT findings of possible large bowel obstruction. However pt clinically not obstructed. - NPO, IV fluids - Serial abdominal exams - Pt without vomiting, having normal bowel function, not clinically obstructed - Discussed plan with Dr. Shimon Fallon PGY-4 <Landon Robins - Last Filed: 05/07/18 15:44> Results - Vital Signs Recent Vital Signs: Last Vital Signs Temp 98.0 F 05/07/18 07:15 Pulse 63 05/07/18 07:15 Resp 20 05/07/18 07:15 BP 90/51 L 05/07/18 07:15 Pulse Ox 97 05/07/18 07:15 - Labs Result Diagrams: 05/07/18 07:09 05/07/18 07:09 Labs: Laboratory Results - last 24 hr 05/07/18 05/07/18 07:09 07:09 WBC 6.3 RBC 3.59 L Hgb 10.7 L Hct 31.3 L MCV 87.2 MCH 29.8 MCHC 34.1 RDW 14.3 Plt Count 203 MPV 8.7 Neut % (Auto) 71.3 Lymph % (Auto) 22.4 [place] % (Auto) 4.8 Eos % (Auto) 0.9 Baso % (Auto) 0.6 Neut # (Auto) 4.5 Lymph # (Auto) 1.4 [place] # (Auto) 0.3 Eos # (Auto) 0.1 Baso # (Auto) 0.0 Sodium 138 Potassium 3.4 L Chloride 104 Carbon Dioxide 22 Anion Gap 16 BUN 8 Creatinine 0.6 L Est GFR ( Amer) > 60 Est GFR (Non-Af Amer) > 60 Random Glucose 55 L Calcium 8.0 L Phosphorus 3.7 Magnesium 1.9 Total Bilirubin 0.7 AST 19 ALT 23 Alkaline Phosphatase 52 Total Protein 6.1 L Albumin 3.3 L Globulin 2.8 Albumin/Globulin Ratio 1.2 Attending/Attestation - Attestation I have personally seen and examined this patient.: Yes I have fully participated in the care of the patient.: Yes I have reviewed all pertinent clinical information: Yes Notes (Text): Pt was seen and examined at bedside Agree with above note and assessment Pt presented with abdominal pain and Nausea Mild abdominal tenderness Labs and radiology reviewed Ass: Colonic dilatation and Constipation Plan: lactulose, Colace GI consult Liquid diet repeat labs in am Plan d.w pt and primary team in detail Risk and benefit explained in detail.
[2018-05-05] MEDS ORDERED: Sodium Chloride 0.9% 1,000 ML ONE ×2 (02:02→02:50)
[2018-05-05] MEDS ORDERED: Sodium Chloride 0.9% 1,000 ML IV SCH (02:15)
[2018-05-05] MEDS: Sodium Chloride 0.9% 1,000 ML IV SCH ×4 (03:54→23:37)
[2018-05-05 07:44] LABS: MONO # 0.4 K/uL (0.0-0.8); RED CELL DISTRIBUTION WIDTH 14.6 % (11.5-14.5)
[2018-05-05 08:02] LABS: ALB/GLOB RATIO 1.1 (1.0-2.1); ALBUMIN 2.8 g/dL (3.5-5.0); ALT/SGPT 30 U/L (9-52); AST/SGOT 17 U/L (14-36); BLOOD UREA NITROGEN 10 mg/dL (7-17); CALCIUM 7.4 mg/dl (8.6-10.4); GFR NON-AFRICAN AMERICAN > 60
[2018-05-05 08:05] LABS: BASO % 0.6 % (0.0-2.0); EOS # 0.2 K/uL (0.0-0.7); EOS % 2.7 % (0.0-4.0); LYMPH # 2.4 K/uL (1.0-4.3); LYMPH % 39.3 % (20.0-40.0); MEAN CELL VOLUME 88.7 fL (81.0-99.0); MEAN CORPUSCULAR HGB CONC 33.9 g/dL (33.0-37.0); MONO % 6.7 % (0.0-10.0); NEUT # 3.1 K/uL (1.8-7.0); NEUT % 50.7 % (50.0-75.0); RBC 3.33 Mil/uL (3.80-5.20)
--- NOTE | 2018-05-05 12:22 | CT ---
Date of service: 05/04/2018 PROCEDURE: CT Abdomen and Pelvis with contrast HISTORY: abd pain, COMPARISON: Abdomen pelvis CT 10/16/2017. TECHNIQUE: Following the intravenous administration of iodinated contrast material, a CT examination of the abdomen and pelvis performed from the domes of the diaphragms to the symphysis pubis with reformatted datasets provided in axial, sagittal and coronal planes. Oral contrast was not administered as per referring physician request. Contrast dose: Visipaque 320, 100 cc Radiation dose: Total exam DLP = mGy-cm. This CT exam was performed using one or more of the following dose reduction techniques: Automated exposure control, adjustment of the mA and/or kV according to patient size, and/or use of iterative reconstruction technique. FINDINGS: LOWER THORAX: Unremarkable. LIVER: Stable probable benign hemangioma seen at the dome of the liver measure 2.0 greatest dimension. The liver remains otherwise unremarkable though the left lobe with somewhat impressed by distended transverse colon. GALLBLADDER AND BILE DUCTS: Unremarkable. PANCREAS: Unremarkable. No gross lesion or ductal dilatation. SPLEEN: Unremarkable. ADRENALS: Unremarkable. No mass. KIDNEYS AND URETERS: Unremarkable. No hydronephrosis. No solid mass. VASCULATURE: Unremarkable. No aortic aneurysm. BOWEL: Evaluation of the gastrointestinal tract is limited due the lack of oral contrast administration. The majority of large bowel appears distended by retained fecal material and gas with the pattern identified mainly at the ascending and transverse large-bowel segments as well as the sigmoid segment. Anastomotic suture line reiterated at the distal rectosigmoid. Pattern may reflect large bowel motility disorder as the findings are worse than no shown previously on 10/16/2017. No mural thickening is appreciated or measure edema or ascites. No free intra peritoneal gas identified. Small bowel appears normal caliber diffusely. APPENDIX: Normal appendix. PERITONEUM: As above. LYMPH NODES: Unremarkable. No enlarged lymph nodes. BLADDER: Unremarkable. REPRODUCTIVE: Unremarkable. BONES: No acute fracture. OTHER FINDINGS: None. IMPRESSION: Potential large-bowel motility disorder as prominent retained fecal material is seen primarily at the right hemicolon and transverse segment with gas primarily distending the distal transverse colon through left hemicolon. Proximal constipation may be present proximally. Is not apparent distally or at the mid large-bowel. Overall large-bowel distension has increased in the interval with small bowel caliber normal throughout. Anastomotic suture line noted distally. Distal large bowel obstruction not favored. Clinically correlate further nevertheless. Concordant preliminary report from [facility], 05/04/2018.
[2018-05-05] MEDS: Magnesium Citrate Oral SOL (300 ml) PO SCH (17:21)
[2018-05-06] MEDS: Sodium Chloride 0.9% 1,000 ML IV SCH (06:09)
[2018-05-06 07:58] LABS: BASO % 0.4 % (0.0-2.0); EOS # 0.1 K/uL (0.0-0.7); HEMOGLOBIN 10.6 g/dL (11.0-16.0); LYMPH # 1.8 K/uL (1.0-4.3); LYMPH % 26.5 % (20.0-40.0); MEAN CELL VOLUME 87.7 fL (81.0-99.0); MEAN CORPUSCULAR HEMOGLOBIN 30.4 pg (27.0-31.0); MEAN CORPUSCULAR HGB CONC 34.6 g/dL (33.0-37.0); MEAN PLATELET VOLUME 8.9 fL (7.2-11.7); MONO # 0.4 K/uL (0.0-0.8); MONO % 5.5 % (0.0-10.0); NEUT # 4.4 K/uL (1.8-7.0); NEUT % 65.6 % (50.0-75.0); RBC 3.48 Mil/uL (3.80-5.20); RED CELL DISTRIBUTION WIDTH 14.4 % (11.5-14.5); WHITE BLOOD COUNT 6.8 K/uL (4.8-10.8)
[2018-05-06 08:24] LABS: ALB/GLOB RATIO 1.4 (1.0-2.1); ALBUMIN 3.3 g/dL (3.5-5.0); ALT/SGPT 22 U/L (9-52); AST/SGOT 16 U/L (14-36); BLOOD UREA NITROGEN 3 mg/dL (7-17); CALCIUM 7.8 mg/dl (8.6-10.4); GFR NON-AFRICAN AMERICAN > 60
--- NOTE | 2018-05-06 08:54 | RAD ---
Date of service: 05/06/2018 HISTORY: Assess for large bowel obstruction vs SBO COMPARISON: No prior. FINDINGS: BOWEL: History distant prominent dilatation of large bowel loops in the abdomen which is marginally improved compared to the CT examination 05/04/2018. Prominent retained fecal material remains at the proximal half of the colon and is minimal at the distal half. A distal large-bowel obstruction is not favored distally but remains difficult to completely exclude. No suspicious small-bowel dilatation. No large free intrarenal gas collections identified. Given prior dilatation of at least up to 10-11 cm greatest transverse diameter and 9.5 cm currently for most dilated large bowel loop, toxic megacolon is a consideration. BONES: Normal. OTHER FINDINGS: None. IMPRESSION: Slightly improved dilatation of large bowel diffusely. Consider potential toxic megacolon with distal large bowel obstruction not completely excluded. No small bowel obstruction appreciated throughout. No prominent free intra peritoneal gas appreciated.
[2018-05-06] MEDS: Magnesium Citrate Oral SOL (300 ml) PO SCH (09:47)
--- NOTE | 2018-05-06 10:00 | CP.PCM.PN ---
<WardMarcella - Last Filed: 05/06/18 10:00> Subjective - Date & Time of Evaluation Date of Evaluation: 05/06/18 Time of Evaluation: 08:10 - Subjective Subjective: Patient seen and examined at bedside this AM. Patient states that she is passing gas but denies any bowel movements, and endorses worsened epigastric pain and chest midline pressure this AM. Objective - Vital Signs/Intake and Output Vital Signs (last 24 hours): Temp Pulse Resp BP Pulse Ox 98.1 F 55 L 20 98/65 L 98 05/05/18 23:40 05/05/18 23:40 05/05/18 23:40 05/05/18 23:40 05/05/18 23:40 - Medications Medications: Current Medications Famotidine (Pepcid) 20 mg IVP DAILY [facility] Last Admin: 05/06/18 09:46 Dose: 20 mg Sodium Chloride (Sodium Chloride 0.9%) 1,000 mls @ 150 mls/hr IV .Q6H40M [facility] Last Admin: 05/06/18 06:09 Dose: Not Given Ketorolac Tromethamine (Toradol) 15 mg IVP Q6H PRN PRN Reason: Pain, moderate (4-7) Last Admin: 05/06/18 04:28 Dose: 15 mg Lactulose (Enulose) 30 gm PO Q8H [facility] Last Admin: 05/06/18 09:46 Dose: 30 gm Magnesium Citrate (Citrate Of Mag) 300 ml PO DAILY [facility] Last Admin: 05/06/18 09:47 Dose: 300 ml Ondansetron HCl (Zofran Inj) 4 mg IVP Q4 PRN PRN Reason: Nausea/Vomiting Last Admin: 05/06/18 06:43 Dose: 4 mg Sodium Phosphate (Fleet Enema) 135 ml SD Q8H [facility] - Labs Labs: 05/06/18 07:44 05/06/18 07:44 PT 11.9 SECONDS (9.7-12.2) 05/04/18 20:44 INR 1.1 05/04/18 20:44 APTT 31 SECONDS (21-34) 05/04/18 20:44 - Constitutional Appears: Well, Non-toxic, No Acute Distress - Head Exam Head Exam: ATRAUMATIC, NORMOCEPHALIC - Eye Exam Eye Exam: Normal appearance. absent: Conjunctival injection, Scleral icterus - ENT Exam ENT Exam: Mucous Membranes Moist, Normal Oropharynx - Respiratory Exam Respiratory Exam: NORMAL BREATHING PATTERN. absent: Accessory Muscle Use, Respiratory Distress - Cardiovascular Exam Cardiovascular Exam: RRR - GI/Abdominal Exam GI & Abdominal Exam: Distended (mild), Soft, Tenderness (epigastrium). absent: Rebound - Extremities Exam Extremities Exam: absent: Calf Tenderness, Pedal Edema, Tenderness - Neurological Exam Neurological Exam: Alert, Awake, Oriented x3 - Psychiatric Exam Psychiatric exam: Normal Affect, Normal Mood - Skin Skin Exam: Dry, Intact, Normal Color, Warm Assessment and Plan - Assessment and Plan (Free Text) Assessment: 33F with ileus vs large bowel obstruction Plan: AXR: slight improvement in distention F/U EKG for chest pain Continue lactulose--patient refusing mag citrate Fleet enemas Q8hrs PRN toradol for pain NPO d/t pain Encourage ambulation Discussed with Dr. Robins, who agrees with above Marcella Hopper Pgy2 <Landon Robins - Last Filed: 05/07/18 15:52> Objective - Vital Signs/Intake and Output Vital Signs (last 24 hours): Temp Pulse Resp BP Pulse Ox 98.0 F 63 20 90/51 L 97 05/07/18 07:15 05/07/18 07:15 05/07/18 07:15 05/07/18 07:15 05/07/18 07:15 - Medications Medications: Current Medications Acetaminophen/Butalbital/Caffeine (Fioricet) 1 tab PO Q6H PRN PRN Reason: Headache Last Admin: 05/06/18 21:54 Dose: 1 tab Enoxaparin Sodium (Lovenox) 40 mg SC DAILY [facility] Last Admin: 05/07/18 10:15 Dose: 40 mg Famotidine (Pepcid) 20 mg IVP DAILY [facility] Last Admin: 05/07/18 10:17 Dose: 20 mg Lactated Ringer's (Lactated Ringer's) 1,000 mls @ 100 mls/hr IV .Q10H [facility] Last Admin: 05/07/18 08:36 Dose: 100 mls/hr Lactulose (Enulose) 30 gm PO Q8H [facility] Last Admin: 05/07/18 08:35 Dose: Not Given Magnesium Citrate (Citrate Of Mag) 300 ml PO DAILY [facility] Last Admin: 05/07/18 10:15 Dose: 300 ml Ondansetron HCl (Zofran Inj) 4 mg IVP Q4 PRN PRN Reason: Nausea/Vomiting Last Admin: 05/06/18 06:43 Dose: 4 mg Sodium Phosphate (Fleet Enema) 135 ml SD Q8H [facility] Last Admin: 05/07/18 10:15 Dose: 135 ml - Labs Labs: 05/07/18 07:09 05/07/18 07:09 PT 11.9 SECONDS (9.7-12.2) 05/04/18 20:44 INR 1.1 05/04/18 20:44 APTT 31 SECONDS (21-34) 05/04/18 20:44 Attending/Attestation - Attestation I have fully participated in the care of the patient.: Yes I have reviewed all pertinent clinical information, including history, physical exam and plan: Yes Notes (Text): Pt is improving clinically C/w Fleet enema c.w current mx Plan d.w pt and primary team in detail
[2018-05-06] MEDS: Lactated Ringer's 1,000 ML IV SCH ×2 (12:30→21:46)
[2018-05-06] MEDS: Enoxaparin 40 mg Syringe SC SCH (13:06)
[2018-05-06] MEDS ORDERED: Apap-Butalbital-Caffeine 325-50-40mg Tab PO PRN (21:34)
[2018-05-07 07:17] LABS: BASO % 0.6 % (0.0-2.0); EOS # 0.1 K/uL (0.0-0.7); EOS % 0.9 % (0.0-4.0); HEMOGLOBIN 10.7 g/dL (11.0-16.0); LYMPH # 1.4 K/uL (1.0-4.3); LYMPH % 22.4 % (20.0-40.0); MEAN CELL VOLUME 87.2 fL (81.0-99.0); MEAN CORPUSCULAR HEMOGLOBIN 29.8 pg (27.0-31.0); MEAN CORPUSCULAR HGB CONC 34.1 g/dL (33.0-37.0); MEAN PLATELET VOLUME 8.7 fL (7.2-11.7); MONO # 0.3 K/uL (0.0-0.8); MONO % 4.8 % (0.0-10.0); NEUT # 4.5 K/uL (1.8-7.0); NEUT % 71.3 % (50.0-75.0); RBC 3.59 Mil/uL (3.80-5.20); RED CELL DISTRIBUTION WIDTH 14.3 % (11.5-14.5); WHITE BLOOD COUNT 6.3 K/uL (4.8-10.8)
[2018-05-07 08:21] LABS: ALB/GLOB RATIO 1.2 (1.0-2.1); ALBUMIN 3.3 g/dL (3.5-5.0); ALT/SGPT 23 U/L (9-52); AST/SGOT 19 U/L (14-36); BLOOD UREA NITROGEN 8 mg/dL (7-17); GFR NON-AFRICAN AMERICAN > 60
[2018-05-07] MEDS: Lactated Ringer's 1,000 ML IV SCH (08:36)
[2018-05-07] MEDS ORDERED: Pneumococcal 23-Valent Vaccine IM ONE (10:00)
[2018-05-07] MEDS: Magnesium Citrate Oral SOL (300 ml) PO SCH (10:15)
[2018-05-07] MEDS: Enoxaparin 40 mg Syringe SC SCH (10:15)
[2018-05-07] MEDS ORDERED: Potassium Chloride 20 mEq/15 ml LIQ UD PO ONE (14:00)
[2018-05-07] MEDS ORDERED: Potassium Chloride 20 mEq ER Tab PO ONE (16:45)
[2018-05-07] MEDS ORDERED: Lactated Ringer's 1,000 ML IV SCH (16:49)
--- NOTE | 2018-05-07 16:52 | CP.PCM.PN ---
Subjective - Date & Time of Evaluation Date of Evaluation: 05/07/18 Time of Evaluation: 07:00 - Subjective Subjective: GENERAL SURGERY PROGRESS NOTE FOR DR. GUZMAN Patient seen and examined at bedside. She reports diarrhea. She is passing flatus. She denies nausea or vomiting. She reports that her PANTOJA is better. Objective - Vital Signs/Intake and Output Vital Signs (last 24 hours): Temp Pulse Resp BP Pulse Ox 98.2 F 84 18 92/52 L 98 05/07/18 15:41 05/07/18 15:41 05/07/18 15:41 05/07/18 15:41 05/07/18 15:41 - Medications Medications: Current Medications Acetaminophen/Butalbital/Caffeine (Fioricet) 1 tab PO Q6H PRN PRN Reason: Headache Last Admin: 05/06/18 21:54 Dose: 1 tab Enoxaparin Sodium (Lovenox) 40 mg SC DAILY [facility] Last Admin: 05/07/18 10:15 Dose: 40 mg Famotidine (Pepcid) 20 mg IVP DAILY [facility] Last Admin: 05/07/18 10:17 Dose: 20 mg Lactated Ringer's (Lactated Ringer's) 1,000 mls @ 50 mls/hr IV .Q20H [facility] Lactulose (Enulose) 30 gm PO Q8H [facility] Last Admin: 05/07/18 16:38 Dose: Not Given Magnesium Citrate (Citrate Of Mag) 300 ml PO DAILY [facility] Last Admin: 05/07/18 10:15 Dose: 300 ml Ondansetron HCl (Zofran Inj) 4 mg IVP Q4 PRN PRN Reason: Nausea/Vomiting Last Admin: 05/06/18 06:43 Dose: 4 mg Sodium Phosphate (Fleet Enema) 135 ml ID Q8H [facility] Last Admin: 05/07/18 10:15 Dose: 135 ml - Labs Labs: 05/07/18 07:09 05/07/18 07:09 PT 11.9 SECONDS (9.7-12.2) 05/04/18 20:44 INR 1.1 05/04/18 20:44 APTT 31 SECONDS (21-34) 05/04/18 20:44 - Constitutional Appears: Non-toxic, No Acute Distress - Head Exam Head Exam: ATRAUMATIC, NORMAL INSPECTION - Eye Exam Eye Exam: EOMI, Normal appearance Pupil Exam: NORMAL ACCOMODATION, PERRL - ENT Exam ENT Exam: Mucous Membranes Moist, Normal Exam - Neck Exam Neck Exam: Full ROM, Normal Inspection. absent: Lymphadenopathy - Respiratory Exam Respiratory Exam: absent: Respiratory Distress, NORMAL BREATHING PATTERN - Cardiovascular Exam Cardiovascular Exam: +S1, +S2 - GI/Abdominal Exam GI & Abdominal Exam: Distended (mild), Soft, Tenderness (mild epigastric). absent: Firm, Guarding, Rigid, Rebound - Rectal Exam Rectal Exam: NORMAL INSPECTION - Exam Exam: Circumcision, NORMAL INSPECTION External exam: NORMAL EXTERNAL EXAM Speculum exam: NORMAL SPECULUM EXAM Bimanual exam: NORMAL BIMANUAL EXAM - Extremities Exam Extremities Exam: Full ROM, Normal Capillary Refill, Normal Inspection. absent : Joint Swelling, Pedal Edema - Back Exam Back Exam: NORMAL INSPECTION - Neurological Exam Neurological Exam: Alert, Awake, Oriented x3 - Psychiatric Exam Psychiatric exam: Normal Affect, Normal Mood - Skin Skin Exam: Intact, Warm Assessment and Plan - Assessment and Plan (Free Text) Assessment: 33yo F with PMHx of hypothyroidism, chronic constipation s/p sigmoid resection, PTSD, achalasia s/p EGD with balloon dilation presents with abdominal pain and CT findings of possible large bowel obstruction. However pt clinically not obstructed. - Lactulose, Mg citrate, enemas - Advanced to soft diet - Serial abdominal exams - Pt without vomiting, having normal bowel function, not clinically obstructed - Discussed plan with Dr. Shimon Fallon PGY-4
[2018-05-08 01:58] VITALS: RESP 20; O2SAT 97
[2018-05-08 07:39] LABS: BASO % 0.9 % (0.0-2.0); EOS # 0.2 K/uL (0.0-0.7); EOS % 2.9 % (0.0-4.0); HEMOGLOBIN 10.9 g/dL (11.0-16.0); LYMPH # 2.4 K/uL (1.0-4.3); MEAN CELL VOLUME 86.8 fL (81.0-99.0); MEAN CORPUSCULAR HEMOGLOBIN 30.5 pg (27.0-31.0); MEAN CORPUSCULAR HGB CONC 35.2 g/dL (33.0-37.0); MONO # 0.4 K/uL (0.0-0.8); MONO % 7.7 % (0.0-10.0); NEUT # 2.7 K/uL (1.8-7.0); NEUT % 46.5 % (50.0-75.0); NRBC % 0.1 % (0.0-2.0); RBC 3.56 Mil/uL (3.80-5.20); RED CELL DISTRIBUTION WIDTH 14.4 % (11.5-14.5); WHITE BLOOD COUNT 5.8 K/uL (4.8-10.8)
[2018-05-08 07:57] VITALS: BP 100/62; PULSE 58; TEMP 98.3
--- NOTE | 2018-05-08 08:12 | CP.PCM.DIS ---
Provider - Provider Date of Admission: 05/05/18 01:50 Attending physician: Landon Robins MD Consults: none Time Spent in preparation of Discharge (in minutes): 30 Hospital Course - Lab Results Lab Results: Most Recent Lab Values WBC 5.8 K/uL (4.8-10.8) 05/08/18 07:20 RBC 3.56 Mil/uL (3.80-5.20) L 05/08/18 07:20 Hgb 10.9 g/dL (11.0-16.0) L 05/08/18 07:20 Hct 30.9 % (34.0-47.0) L 05/08/18 07:20 MCV 86.8 fL (81.0-99.0) 05/08/18 07:20 MCH 30.5 pg (27.0-31.0) 05/08/18 07:20 MCHC 35.2 g/dL (33.0-37.0) 05/08/18 07:20 RDW 14.4 % (11.5-14.5) 05/08/18 07:20 Plt Count 217 K/uL (130-400) 05/08/18 07:20 MPV 9.0 fL (7.2-11.7) 05/08/18 07:20 Neut % (Auto) 46.5 % (50.0-75.0) L 05/08/18 07:20 Lymph % (Auto) 42.0 % (20.0-40.0) H 05/08/18 07:20 [place] % (Auto) 7.7 % (0.0-10.0) 05/08/18 07:20 Eos % (Auto) 2.9 % (0.0-4.0) 05/08/18 07:20 Baso % (Auto) 0.9 % (0.0-2.0) 05/08/18 07:20 Neut # (Auto) 2.7 K/uL (1.8-7.0) 05/08/18 07:20 Lymph # (Auto) 2.4 K/uL (1.0-4.3) 05/08/18 07:20 [place] # (Auto) 0.4 K/uL (0.0-0.8) 05/08/18 07:20 Eos # (Auto) 0.2 K/uL (0.0-0.7) 05/08/18 07:20 Baso # (Auto) 0.0 K/uL (0.0-0.2) 05/08/18 07:20 PT 11.9 SECONDS (9.7-12.2) 05/04/18 20:44 INR 1.1 05/04/18 20:44 APTT 31 SECONDS (21-34) 05/04/18 20:44 Sodium 138 mmol/L (132-148) 05/07/18 07:09 Potassium 3.4 mmol/L (3.6-5.2) L 05/07/18 07:09 Chloride 104 mmol/L (98-107) 05/07/18 07:09 Carbon Dioxide 22 mmol/L (22-30) 05/07/18 07:09 Anion Gap 16 (10-20) 05/07/18 07:09 BUN 8 mg/dL (7-17) 05/07/18 07:09 Creatinine 0.6 mg/dL (0.7-1.2) L 05/07/18 07:09 Est GFR ( Amer) > 60 05/07/18 07:09 Est GFR (Non-Af Amer) > 60 05/07/18 07:09 Random Glucose 55 mg/dL (65-105) L 05/07/18 07:09 Calcium 8.0 mg/dl (8.6-10.4) L 05/07/18 07:09 Phosphorus 3.7 mg/dL (2.5-4.5) 05/07/18 07:09 Magnesium 1.9 mg/dL (1.6-2.3) 05/07/18 07:09 Total Bilirubin 0.7 mg/dL (0.2-1.3) 05/07/18 07:09 AST 19 U/L (14-36) 05/07/18 07:09 ALT 23 U/L (9-52) 05/07/18 07:09 Alkaline Phosphatase 52 U/L (38-126) 05/07/18 07:09 Total Protein 6.1 g/dL (6.3-8.3) L 05/07/18 07:09 Albumin 3.3 g/dL (3.5-5.0) L 05/07/18 07:09 Globulin 2.8 gm/dL (2.2-3.9) 05/07/18 07:09 Albumin/Globulin Ratio 1.2 (1.0-2.1) 05/07/18 07:09 Lipase 147 U/L (23-300) 05/04/18 20:43 Urine Color Lois (YELLOW) 05/04/18 20:43 Urine Clarity Clear (Clear) 05/04/18 20:43 Urine pH 6.0 (5.0-8.0) 05/04/18 20:43 Ur Specific [place] 1.023 (1.003-1.030) 05/04/18 20:43 Urine Protein Negative mg/dL (NEGATIVE) 05/04/18 20:43 Urine Glucose (UA) Normal mg/dL (Normal) 05/04/18 20:43 Urine Ketones Negative mg/dL (NEGATIVE) 05/04/18 20:43 Urine Blood 1+ (NEGATIVE) H 05/04/18 20:43 Urine Nitrate Negative (NEGATIVE) 05/04/18 20:43 Urine Bilirubin Negative (NEGATIVE) 05/04/18 20:43 Urine Urobilinogen Normal mg/dL (0.2-1.0) 05/04/18 20:43 Ur Leukocyte Esterase Neg [place]/uL (Negative) 05/04/18 20:43 Urine WBC (Auto) 2 /hpf (0-5) 05/04/18 20:43 Urine RBC (Auto) 8 /hpf (0-3) H 05/04/18 20:43 Ur Squamous Epith Cells 3 /hpf (0-5) 05/04/18 20:43 Urine Bacteria Rare (<OCC) 05/04/18 20:43 Urine HCG, Qual Negative (NEGATIVE) 05/04/18 20:43 - Hospital Course Hospital Course: 33yo F with PMHx of hypothyroidism, chronic constipation s/p sigmoid resection, PTSD, achalasia s/p EGD with balloon dilation who is well known to surgical service due to severe constipation who presented to the ED with abdominal pain on 05/05. She reported nausea but no vomiting. Last BM earlier that day. She takes miralax and colace for chronic constipation and reports that since her surgery, her constipation has improved overall. CT in ED showed: massive dilation of ascending and transverse colon which are diffusely gas filled w/ small to moderate amount of stool, focal transition point in left mid abdomen with decompression of descending colon, possible large bowel obstruction. However, pt was not clinically obstructed and was having normal bowel function. She was admitted for serial abdominal exams and given Lactulose, colace, and fleet enemas. She was started on a liquid diet which she tolerated and then advanced to a soft diet. Discharge Exam - Head Exam Head Exam: ATRAUMATIC, NORMAL INSPECTION - Respiratory Exam Respiratory Exam: NORMAL BREATHING PATTERN. absent: Respiratory Distress - Cardiovascular Exam Cardiovascular Exam: +S1, +S2 - GI/Abdominal Exam GI & Abdominal Exam: Soft. absent: Distended, Firm, Guarding, Rebound, Rigid, Tenderness - Neurological Exam Neurological exam: Alert, CN II-XII Intact, Oriented x3 - Psychiatric Exam Psychiatric exam: Normal Affect, Normal Mood - Skin Skin Exam: Normal Color, Warm Discharge Plan - Follow Up Plan Condition: FAIR Disposition: HOME/ ROUTINE Patient education suggested?: Yes Instructions: Constipation (DC) Additional Instructions: Take Miralax and Colace as prescribed Follow up with Dr. Robins in his office in 1 week, call to make appointment Referrals: Landon Robins MD [Staff Provider] -
[2018-05-08 08:40] LABS: ALB/GLOB RATIO 1.1 (1.0-2.1); ALBUMIN 3.1 g/dL (3.5-5.0); ALT/SGPT 24 U/L (9-52); AST/SGOT 19 U/L (14-36); BLOOD UREA NITROGEN 9 mg/dL (7-17); CALCIUM 8.1 mg/dl (8.6-10.4); GFR NON-AFRICAN AMERICAN > 60
--- NOTE | 2018-05-08 08:56 | CARD ---
APPROVED REPORT Date of service: 05/06/2018 EKG Measurement Heart [id number] <Conclusion> Sinus bradycardia Otherwise normal ECG
== END 2018-05-08 10:50 | disposition home or self-care (01) | DRG 183 ==
LOC: C.ER 19:14 → C.6T 05-05 01:50
PROVIDERS: ADMIT Surgery Surgical Critical Care; ATTEND Surgery Surgical Critical Care
DX: K59.09 Other constipation (principal); R10.9 Unspecified abdominal pain; E03.9 Hypothyroidism, unspecified; F43.10 Post-traumatic stress disorder, unspecified; K22.0 Achalasia of cardia

== ENCOUNTER 2018-05-16 10:18 | Inpatient (IN) | payer SELFPAY ==
[2018-05-16 10:38] VITALS: BMI 25.6
[2018-05-16] MEDS ORDERED: Sodium Chloride 0.9% 1,000 ML IV ONE (11:12)
[2018-05-16 11:56] LABS: BASO # 0.1 K/uL (0.0-0.2); BASO % 0.7 % (0.0-2.0); EOS # 0.1 K/uL (0.0-0.7); HEMOGLOBIN 11.4 g/dL (11.0-16.0); LYMPH # 1.9 K/uL (1.0-4.3); LYMPH % 25.7 % (20.0-40.0); MEAN CELL VOLUME 88.3 fL (81.0-99.0); MEAN CORPUSCULAR HEMOGLOBIN 30.1 pg (27.0-31.0); MEAN CORPUSCULAR HGB CONC 34.1 g/dL (33.0-37.0); MEAN PLATELET VOLUME 8.7 fL (7.2-11.7); MONO # 0.4 K/uL (0.0-0.8); MONO % 5.5 % (0.0-10.0); NEUT # 4.8 K/uL (1.8-7.0); NEUT % 66.1 % (50.0-75.0); RBC 3.79 Mil/uL (3.80-5.20); RED CELL DISTRIBUTION WIDTH 15.2 % (11.5-14.5); WHITE BLOOD COUNT 7.3 K/uL (4.8-10.8)
[2018-05-16 12:14] LABS: HCG,QUALITATIVE URINE NEGATIVE (NEGATIVE)
[2018-05-16 12:21] LABS: SQUAMOUS EPITHIAL 1 /hpf (0-5); URINE BILIRUBIN NEGATIVE (NEGATIVE); URINE BLOOD NEGATIVE (NEGATIVE); URINE CLARITY Clear (Clear); URINE COLOR Straw (YELLOW); URINE GLUCOSE (UA) NORMAL (Normal); URINE LEUKOCYTE ESTERASE NEG Leu/uL (Negative); URINE PROTEIN NEGATIVE (NEGATIVE); URINE UROBILINOGEN NORMAL mg/dL (0.2-1.0)
[2018-05-16 12:37] LABS: ALB/GLOB RATIO 1.3 (1.0-2.1); ALBUMIN 4.1 g/dL (3.5-5.0); ALT/SGPT 31 U/L (9-52); AST/SGOT 21 U/L (14-36); BLOOD UREA NITROGEN 11 mg/dL (7-17); CALCIUM 8.8 mg/dl (8.6-10.4); GFR NON-AFRICAN AMERICAN > 60; LIPASE 102 U/L (23-300)
--- NOTE | 2018-05-16 12:48 | C.PDOC ---
History Of Present Illness Patient presents to ED c/o diffuse abdominal pain that is chronic, but worse in the past 4-5 days. Abdominal pain is diffuse, not associated with any vomiting or diarrhea. Patient is having very small BMs, last on yesterday. Patient denies fever, dysuria, hematuria, vaginal bleeding/discharge. PMhx of hypothyroidism, sigmoid resection (2017), chronic constipation, achalasia Time Seen by Provider: 05/16/18 10:46 Chief Complaint (Nursing): Abdominal Pain History Per: Patient History/Exam Limitations: no limitations Onset/Duration Of Symptoms: Days (4) Current Symptoms Are (Timing): Still Present Severity: Moderate Location Of Pain/Discomfort: Diffuse Quality Of Discomfort: "Pain" Associated Symptoms: denies: Fever, Chills, Nausea, Vomiting, Diarrhea Past Medical History Reviewed: Historical Data, Nursing Documentation, Vital Signs Vital Signs: Last Vital Signs Temp 98.1 F 05/18/18 07:15 Pulse 60 05/18/18 07:15 Resp 20 05/18/18 07:15 BP 97/60 L 05/18/18 07:15 Pulse Ox 98 05/18/18 07:15 - Medical History PMH: Hypothyroidism, Migraine, Post Traumatic Stress Disorder Surgical History: Endoscopy - [facility] Procedures INSERT OF INFUSION PUMP INTO ABD SUBCU/FASCIA, PERC APPROACH (05/17/17) IRRIGATION OF LOWER GI USING IRRIGATING SUBSTANCE, ENDO (09/05/16) RESECTION OF RECTUM, PERCUTANEOUS ENDOSCOPIC APPROACH (05/17/17) RESECTION OF SIGMOID COLON, PERCUTANEOUS ENDOSCOPIC APPROACH (05/17/17) Family History: States: No Known Family Hx - Social History Hx Tobacco Use: No Hx Alcohol Use: No Hx Substance Use: No - Immunization History Hx Tetanus Toxoid Vaccination: No Hx Influenza Vaccination: No Hx Pneumococcal Vaccination: No Review Of Systems Constitutional: Negative for: Fever, Chills Cardiovascular: Negative for: Chest Pain Respiratory: Negative for: Shortness of Breath Gastrointestinal: Positive for: Abdominal Pain. Negative for: Nausea, Vomiting , Diarrhea Genitourinary: Negative for: Dysuria, Hematuria, Vaginal Discharge, Vaginal Bleeding Physical Exam - Physical Exam Appears: Well, Non-toxic, In Acute Distress (in mild to moderate pain ) Skin: Normal Color, Warm, Dry Oral Mucosa: Moist Cardiovascular: Rhythm Regular Respiratory: Normal Breath Sounds, No Rales, No Rhonchi, No Wheezing Gastrointestinal/Abdominal: Bowel Sounds, Soft, Tenderness (diffuse TTP, (-) McBurney's, (-) Zacarias's), Distention, No Guarding, No Rebound Neurological/Psych: Oriented x3 ED Course And Treatment - Laboratory Results Result Diagrams: 05/18/18 06:28 05/18/18 06:28 O2 Sat by Pulse Oximetry: 97 (RA) Pulse Ox Interpretation: Normal - Other Rad obs series X-Ray: Viewed By Me, Read By Radiologist Interpretation: Accession No. : [id number]. Patient Name / ID : SIXTO PATTERSON / [id number]. Exam Date : 05/16/2018 12:17:00 ( Approved ) . Study Comment : Sex / Age : F / 33Y. Creator : Nguyen Smith MD. Dictator : Nguyen Smith MD. Bin Packer : Office Helper Clerical : Nguyen Smith MD. Approver2 : Report Date : 05/16/2018 13:13:24. My Comment : . Date of service: 05/16/2018. PROCEDURE: Radiographs of the chest and abdomen ( obstructive series). HISTORY: Abdominal pain and constipation. COMPARISON: 05/06/2018. TECHNIQUE: AP radiograph of the chest, with upright and supine radiographs of the abdomen. FINDINGS: CHEST: Lungs: The lungs are well inflated and clear. Cardiovascular: Normal size heart. No pulmonary vascular congestion. Pleura: No pleural fluid. No pneumothorax. Other findings: None. ABDOMEN AND PELVIS: Bowel: There is redemonstration of large amount of retained fecal material in the ascending colon, hepatic flexure and proximal transverse colon. There is severe gaseous distension of the splenic flexure and descending colon. Free air: None. Bones: Unremarkable. Other findings: There is chronic elevation of the left hemidiaphragm. IMPRESSION: Persistent fecal impaction in the ascending and proximal transverse colon and cashews distension of the splenic fracture and descending colon. Delayed presentation of Hirschsprung's disease is a consideration. Clinical follow-up is advised. Progress Note: Blood work, UA, obstructive series ordered and reviewed. Patient given IV NS bolus, IV toradol. 12:30- obstructive series shows dilatation of large bowel, ? obstruction. Surgery resident called for eval ( patient previously seen by them, discharged 05/08/18). 1:40PM- Surgery resident paged again. 2:30PM- Case discussed with Garage Door Installer, surgical garment assembler will come to evaluate patient. 3:20PM- Patient has been evaluated by surgery resident- they are pending discussion with Dr. Robins, who is currently in the OR. 6:30pm- Patient had one small BM, still pending call back from surgery team. 6:55pm- Spoke with Dr. Robins, he would like patient admitted to medicine with surgery on consult - stated no surgical intervention needed at this time. - Physician Consult Information Physician Contacted: Hiro Blackwell Outcome Of Conversation: Discussed patient with hospitalist, he agrees with obs for severe constipation and large bowel dilatation, possible obstruction with surgery consult. Admission to be entered under night doc, Dr. Altamirano. Disposition - Disposition Disposition: HOSPITALIZED Disposition Time: 19:07 Condition: STABLE - Clinical Impression Clinical Impression: Abdominal pain, Constipation, Large bowel obstruction Decision To Admit - Pt Status Changed To: Hospital Disposition Of: Observation - . Bed Request Type: Regular Admitting Physician: Sebastián Altamirano Patient Diagnosis: Abdominal pain, Constipation, Large bowel obstruction
--- NOTE | 2018-05-16 13:14 | RAD ---
Date of service: 05/16/2018 PROCEDURE: Radiographs of the chest and abdomen (obstructive series) HISTORY: Abdominal pain and constipation COMPARISON: 05/06/2018 TECHNIQUE: AP radiograph of the chest, with upright and supine radiographs of the abdomen. FINDINGS: CHEST: Lungs: The lungs are well inflated and clear. Cardiovascular: Normal size heart. No pulmonary vascular congestion. Pleura: No pleural fluid. No pneumothorax. Other findings: None. ABDOMEN AND PELVIS: Bowel: There is redemonstration of large amount of retained fecal material in the ascending colon, hepatic flexure and proximal transverse colon. There is severe gaseous distension of the splenic flexure and descending colon. Free air: None. Bones: Unremarkable. Other findings: There is chronic elevation of the left hemidiaphragm. IMPRESSION: Persistent fecal impaction in the ascending and proximal transverse colon and cashews distension of the splenic fracture and descending colon. Delayed presentation of Hirschsprung's disease is a consideration. Clinical follow-up is advised.
[2018-05-16] MEDS ORDERED: POLYETHYLENE GLYCOL 3350 17 GM/Dose PACKET PO STA (14:39)
--- NOTE | 2018-05-16 15:18 | CP.PCM.CON ---
<Naima Hameed - Last Filed: 05/16/18 15:12> History of Present Illness - History of Present Illness History of Present Illness: Surgery consult note for Dr. Shimon Hameed, PGY-3 Shaniqua is a 33F presenting to ED with 4 day hx of abdominal pain and constipation. The pt was evaluated 06/08 in the ED for the same and has a hx of bloating, abdominal pain, and constipation since her sigmoid resection in 2016. The pt states that pain is epigastric and diaphragmatic. Pain is associated with bloating, and nausea worsened over the last 4 days. Her last bowel movement was yesterday, but was very small. She has been on a liquid diet for 2 weeks due to issues with small bowel movements and pain. She takes colace and miralax at home daily, but nothing seems to help this problem. She denies any fever, chills, vomiting, diarrhea. PMHx: achalasia, hypothyroidism, chronic constipation PSHx: EGD and balloon dilation of esophagus, laparoscopic sigmoid colectomy converted to open All: none Meds: colace, miralax, levothyroxine. does not use pain medicatoin at home. FHx: heart disease and diabetes (mother), cancer (father) Social: no smoking, no alcohol use. Review of Systems - Constitutional Constitutional: absent: Fever - Gastrointestinal Gastrointestinal: Abdominal Pain, Bloating, Constipation, Nausea. absent: Diarrhea, Vomiting Past Patient History - Infectious Disease Hx of Infectious Diseases: None - Past Medical History & Family History Past Medical History?: Yes - Past Social History Smoking Status: Never Smoked - CARDIAC Hx Cardiac Disorders: No - PULMONARY Hx Respiratory Disorders: No - NEUROLOGICAL Hx Migraine: Yes - HEENT Hx HEENT Problems: No - RENAL Hx Chronic Kidney Disease: No - ENDOCRINE/METABOLIC Hx Hypothyroidism: Yes - HEMATOLOGICAL/ONCOLOGICAL Hx Blood Disorders: No - INTEGUMENTARY Hx Dermatological Problems: No - MUSCULOSKELETAL/RHEUMATOLOGICAL Hx Musculoskeletal Disorders: Yes Hx Back Pain: Yes Hx Falls: No - GASTROINTESTINAL Hx Gastrointestinal Disorders: Yes Hx Bowel Surgery: Yes (PARTIAL COLECTOMY) Hx Constipation: Yes Other/Comment: CHRONIC CONSTIPATION, CHAGAS SYNDROME, ACHALASIA - GENITOURINARY/GYNECOLOGICAL Hx Genitourinary Disorders: No - PSYCHIATRIC Hx Post Traumatic Stress Disorder: Yes Hx Substance Use: No - SURGICAL HISTORY Hx Surgeries: Yes Other/Comment: OPERATION ON THE INTESTINE PT HAD CHRONIC CONSTIPATION AND HAD PARTIAL REMOVAL OF COLON - ANESTHESIA Hx Anesthesia: Yes Hx Anesthesia Reactions: No Hx Malignant Hyperthermia: No Meds Allergies/Adverse Reactions: Allergies Allergy/AdvReac Type Severity Reaction Status Date / Time No Known Allergies Allergy Verified 05/16/18 10:37 Physical Exam - Head Exam Head Exam: ATRAUMATIC, NORMAL INSPECTION, NORMOCEPHALIC - Eye Exam Eye Exam: Normal appearance. absent: Conjunctival injection, Scleral icterus - ENT Exam ENT Exam: Mucous Membranes Moist, Normal Exam - Respiratory Exam Respiratory Exam: NORMAL BREATHING PATTERN. absent: Accessory Muscle Use, Prolonged Expiratory Phase - Cardiovascular Exam Cardiovascular Exam: REGULAR RHYTHM - GI/Abdominal Exam GI & Abdominal Exam: Soft, Tenderness. absent: Hernia, Rebound Additional comments: Healed 15 cm linear scar from longitudinal midline surgical incision. No significant abdominal distension. Suprapubic tenderness to palpation. No guarding or rebound. - Rectal Exam Rectal Exam: NORMAL INSPECTION. absent: Black Stool, Bloody Stool Additional comments: Normal sphincter tone. No palpable masses. No hemorrhoids. Paucity of stool in rectal vault. No gross blood. - Back Exam Back exam: NORMAL INSPECTION - Psychiatric Exam Psychiatric exam: Normal Affect, Normal Mood - Skin Skin Exam: Dry, Intact, Warm Results - Vital Signs Recent Vital Signs: Last Vital Signs Temp 98.5 F 05/16/18 10:38 Pulse 82 05/16/18 10:38 Resp 16 05/16/18 10:38 BP 108/74 05/16/18 10:38 Pulse Ox 97 05/16/18 14:25 - Labs Result Diagrams: 05/16/18 11:59 05/16/18 11:59 Labs: Laboratory Results - last 24 hr 05/16/18 05/16/18 05/16/18 11:59 11:59 11:59 WBC 7.3 RBC 3.79 L Hgb 11.4 Hct 33.5 L MCV 88.3 MCH 30.1 MCHC 34.1 RDW 15.2 H Plt Count 227 MPV 8.7 Neut % (Auto) 66.1 Lymph % (Auto) 25.7 [place] % (Auto) 5.5 Eos % (Auto) 2.0 Baso % (Auto) 0.7 Neut # (Auto) 4.8 Lymph # (Auto) 1.9 [place] # (Auto) 0.4 Eos # (Auto) 0.1 Baso # (Auto) 0.1 Sodium 142 Potassium 4.2 Chloride 107 Carbon Dioxide 23 Anion Gap 16 BUN 11 Creatinine 0.6 L Est GFR ( Amer) > 60 Est GFR (Non-Af Amer) > 60 Random Glucose 91 Calcium 8.8 Total Bilirubin 0.3 AST 21 ALT 31 Alkaline Phosphatase 45 Total Protein 7.3 Albumin 4.1 Globulin 3.2 Albumin/Globulin Ratio 1.3 Lipase 102 Urine Color Straw Urine Clarity Clear Urine pH 5.0 Ur Specific [place] 1.008 Urine Protein Negative Urine Glucose (UA) Normal Urine Ketones Negative Urine Blood Negative Urine Nitrate Negative Urine Bilirubin Negative Urine Urobilinogen Normal Ur Leukocyte Esterase Neg Urine RBC (Auto) 1 Ur Squamous Epith Cells 1 Urine HCG, Qual Negative Assessment & Plan - Assessment and Plan (Free Text) Assessment: 33F s/p open sigmoidectomy in 2017 presents for ongoing chronic constipation and abdominal pain. Plan: - Abdominal series shows grossly dilated transverse colon and fecal impaction. - NPO for now - Fleet enema - Gentle IVF - Analgesia with NSAIDs as needed. No prokinetic agents for now. - further recommendations with Dr. Robins. Dr. Naima Hameed, PGY-3 <Landon Robins B - Last Filed: 05/20/18 10:54> Results - Vital Signs Recent Vital Signs: Last Vital Signs Temp 98.1 F 05/18/18 07:15 Pulse 60 05/18/18 07:15 Resp 20 05/18/18 07:15 BP 97/60 L 05/18/18 07:15 Pulse Ox 97 05/20/18 09:08 - Labs Result Diagrams: 05/18/18 06:28 05/18/18 06:28 Attending/Attestation - Attestation I have personally seen and examined this patient.: Yes I have fully participated in the care of the patient.: Yes I have reviewed all pertinent clinical information: Yes Notes (Text): Pt was seen and examined at bedside Agree with above note and assessment Pt with abdominal pain and nausea Abdomen: Soft, distended, mild tender Labs and radiology reviewed Ass: PSBO, constipation Plan : Fleet enema NPO, IVF IV antibiotics repeat Labs in am Plan d.w pt in detail Risk and benefit explained in detail.
--- NOTE | 2018-05-16 22:06 | CP.PCM.HP ---
<Nazario Rojas - Last Filed: 05/17/18 04:02> History of Present Illness - History of Present Illness History of Present Illness: PGY2 Medicine Note for Dr. Altamirano Patient is a 33 year old female with past medical history of achalasia, hypothyroidism, chronic constipation presenting with a complaint of abdominal pain and constipation. Patient was recently admitted and discharged on 05/05/18- for the same complaints. Patient been experiencing these symptoms off and on since she had a sigmoid resection in 2016. Over the past four days her pain has been worsening with only small bowel movements and nausea, no vomiting. Her last BM was yesterday. She has been eating a tolerating a liquid diet for the past two weeks. She takes colace and miralax as a daily medication. Denies fevers, chills, diarrhea, chest pain, shortness of breath, numbness or tingling. PMH: achalasia, hypothyroidism, chronic constipation PSH: EGD and balloon dilation of esophagus, laparoscopic sigmoid colectomy converted to open Family: heart disease and diabetes (mother), cancer (father) Social: no smoking, no alcohol use. Meds: colace, miralax, levothyroxine. does not use pain medication at home. All: none Present on Admission - Present on Admission Any Indicators Present on Admission: No Review of Systems - Review of Systems All systems: reviewed and no additional remarkable complaints except - Constitutional Constitutional: As Per HPI - EENT Eyes: As Per HPI Nose/Mouth/Throat: As Per HPI - Cardiovascular Cardiovascular: As Per HPI - Respiratory Respiratory: As Per HPI - Gastrointestinal Gastrointestinal: As Per HPI - Genitourinary Genitourinary: As Per HPI - Musculoskeletal Musculoskeletal: As Per HPI - Integumentary Integumentary: As Per HPI - Neurological Neurological: As Per HPI - Psychiatric Psychiatric: As Per HPI - Endocrine Endocrine: As Per HPI - Hematologic/Lymphatic Hematologic: As Per HPI Past Patient History - Infectious Disease Hx of Infectious Diseases: None - Past Medical History & Family History Past Medical History?: Yes - Past Social History Smoking Status: Never Smoked - CARDIAC Hx Cardiac Disorders: No - PULMONARY Hx Respiratory Disorders: No - NEUROLOGICAL Hx Migraine: Yes - HEENT Hx HEENT Problems: No - RENAL Hx Chronic Kidney Disease: No - ENDOCRINE/METABOLIC Hx Hypothyroidism: Yes - HEMATOLOGICAL/ONCOLOGICAL Hx Blood Disorders: No - INTEGUMENTARY Hx Dermatological Problems: No - MUSCULOSKELETAL/RHEUMATOLOGICAL Hx Musculoskeletal Disorders: Yes Hx Back Pain: Yes Hx Falls: No - GASTROINTESTINAL Hx Gastrointestinal Disorders: Yes Hx Bowel Surgery: Yes (PARTIAL COLECTOMY) Hx Constipation: Yes Other/Comment: CHRONIC CONSTIPATION, CHAGAS SYNDROME, ACHALASIA - GENITOURINARY/GYNECOLOGICAL Hx Genitourinary Disorders: No - PSYCHIATRIC Hx Post Traumatic Stress Disorder: Yes Hx Substance Use: No - SURGICAL HISTORY Hx Surgeries: Yes Other/Comment: OPERATION ON THE INTESTINE PT HAD CHRONIC CONSTIPATION AND HAD PARTIAL REMOVAL OF COLON - ANESTHESIA Hx Anesthesia: Yes Hx Anesthesia Reactions: No Hx Malignant Hyperthermia: No Meds Allergies/Adverse Reactions: Allergies Allergy/AdvReac Type Severity Reaction Status Date / Time No Known Allergies Allergy Verified 05/16/18 10:37 Physical Exam - Constitutional Appears: Non-toxic, No Acute Distress - Head Exam Head Exam: ATRAUMATIC, NORMOCEPHALIC - Eye Exam Eye Exam: EOMI, Normal appearance, PERRL Pupil Exam: NORMAL ACCOMODATION - ENT Exam ENT Exam: Mucous Membranes Moist - Neck Exam Neck exam: Negative for: Lymphadenopathy - Respiratory Exam Respiratory Exam: Clear to Auscultation Bilateral, NORMAL BREATHING PATTERN. absent: Accessory Muscle Use, Rales, Rhonchi, Wheezes, Respiratory Distress - Cardiovascular Exam Cardiovascular Exam: REGULAR RHYTHM, +S1 - GI/Abdominal Exam GI & Abdominal Exam: Normal Bowel Sounds, Soft, Tenderness (epigastric pain). absent: Distended, Firm, Guarding, Rigid Additional comments: well healed surgical scar - Extremities Exam Extremities exam: Positive for: normal inspection, pedal pulses present. Negative for: calf tenderness, pedal edema - Neurological Exam Neurological exam: Alert, Oriented x3 - Psychiatric Exam Psychiatric exam: Normal Affect, Normal Mood - Skin Skin Exam: Dry, Warm Results - Vital Signs Recent Vital Signs: Last Vital Signs Temp 98.7 F 05/16/18 20:45 Pulse 67 05/16/18 20:45 Resp 20 05/16/18 20:45 BP 96/63 L 05/16/18 20:45 Pulse Ox 100 05/16/18 20:45 - Labs Result Diagrams: 05/16/18 11:59 05/16/18 11:59 Labs: Laboratory Results - last 24 hr 05/16/18 05/16/18 05/16/18 11:59 11:59 11:59 WBC 7.3 RBC 3.79 L Hgb 11.4 Hct 33.5 L MCV 88.3 MCH 30.1 MCHC 34.1 RDW 15.2 H Plt Count 227 MPV 8.7 Neut % (Auto) 66.1 Lymph % (Auto) 25.7 [place] % (Auto) 5.5 Eos % (Auto) 2.0 Baso % (Auto) 0.7 Neut # (Auto) 4.8 Lymph # (Auto) 1.9 [place] # (Auto) 0.4 Eos # (Auto) 0.1 Baso # (Auto) 0.1 Sodium 142 Potassium 4.2 Chloride 107 Carbon Dioxide 23 Anion Gap 16 BUN 11 Creatinine 0.6 L Est GFR ( Amer) > 60 Est GFR (Non-Af Amer) > 60 Random Glucose 91 Calcium 8.8 Total Bilirubin 0.3 AST 21 ALT 31 Alkaline Phosphatase 45 Total Protein 7.3 Albumin 4.1 Globulin 3.2 Albumin/Globulin Ratio 1.3 Lipase 102 Urine Color Straw Urine Clarity Clear Urine pH 5.0 Ur Specific [place] 1.008 Urine Protein Negative Urine Glucose (UA) Normal Urine Ketones Negative Urine Blood Negative Urine Nitrate Negative Urine Bilirubin Negative Urine Urobilinogen Normal Ur Leukocyte Esterase Neg Urine RBC (Auto) 1 Ur Squamous Epith Cells 1 Urine HCG, Qual Negative Assessment & Plan - Assessment and Plan (Free Text) Plan: Abdominal Pain/Constipation General Surgery Consulted, Dr. Robins * NPO * Fleet enema * Gentle IVF * NSAIDs as needed * No prokinetic agents for now GI consulted, Dr. Cummings Obstruction Series: * Persistent fecal impaction in the ascending and proximal transverse colon and cashews distension of the splenic fracture and descending colon. Delayed presentation of Hirschsprung's disease is a consideration. Clinical follow-up is advised. afebrile no leukocytosis no infectious cause suspected at this time Medications: * Toradol 30mg IVP q6h prn * Protonix 20mg PO daily * Tylenol 650mg PO q6h prn * Miralax * D5-1/2NS with 20K+ meq @100mL/hr Hypothyroidism continue home medication Synthroid 175mcg PO daily Prophylactic Care SCDs Protonix 20mg PO daily Case discussed with Dr. Evelia Lange Crystal PGY2 <Sebastián Altamirano P - Last Filed: 05/17/18 06:45> Results - Vital Signs Recent Vital Signs: Last Vital Signs Temp 98.9 F 05/17/18 00:09 Pulse 61 05/17/18 00:09 Resp 18 05/17/18 00:09 BP 94/60 L 05/17/18 00:09 Pulse Ox 97 05/17/18 00:09 - Labs Result Diagrams: 05/16/18 11:59 05/16/18 11:59 Labs: Laboratory Results - last 24 hr 05/16/18 05/16/18 05/16/18 11:59 11:59 11:59 WBC 7.3 RBC 3.79 L Hgb 11.4 Hct 33.5 L MCV 88.3 MCH 30.1 MCHC 34.1 RDW 15.2 H Plt Count 227 MPV 8.7 Neut % (Auto) 66.1 Lymph % (Auto) 25.7 [place] % (Auto) 5.5 Eos % (Auto) 2.0 Baso % (Auto) 0.7 Neut # (Auto) 4.8 Lymph # (Auto) 1.9 [place] # (Auto) 0.4 Eos # (Auto) 0.1 Baso # (Auto) 0.1 Sodium 142 Potassium 4.2 Chloride 107 Carbon Dioxide 23 Anion Gap 16 BUN 11 Creatinine 0.6 L Est GFR ( Amer) > 60 Est GFR (Non-Af Amer) > 60 Random Glucose 91 Calcium 8.8 Total Bilirubin 0.3 AST 21 ALT 31 Alkaline Phosphatase 45 Total Protein 7.3 Albumin 4.1 Globulin 3.2 Albumin/Globulin Ratio 1.3 Lipase 102 Urine Color Straw Urine Clarity Clear Urine pH 5.0 Ur Specific [place] 1.008 Urine Protein Negative Urine Glucose (UA) Normal Urine Ketones Negative Urine Blood Negative Urine Nitrate Negative Urine Bilirubin Negative Urine Urobilinogen Normal Ur Leukocyte Esterase Neg Urine RBC (Auto) 1 Ur Squamous Epith Cells 1 Urine HCG, Qual Negative Attending/Attestation - Attestation I have personally seen and examined this patient.: Yes I have fully participated in the care of the patient.: Yes I have reviewed all pertinent clinical information: Yes Notes (Text): 05/17/18 06:37 Assessment/Plan Patients symptoms are recurrent as dilated, redundant colon with constipation, at the time of exam slight tenderness in the left upper quadrant, also has h/o achalasia cardia and she is s/p sigmoidectomy. She may have aganglionic segment in the colon clinically it's not acute obstruction, but that stays in the differential. Passing gas and small amounts of stool daily. The surgical team has been taking care of patient's presentation in the recent times. In my opinion the colon has been redundant and very unlikely to respond with laxatives or enemas and will always come with risk of increased pressure and perforation, patient may need eventually proximal colostomy/colon or surgically build colon. GI has been consulted, currently symptoms be managed conservatively , with npo, ivf, toradol 15mg ivq6 prn, ppi, patient is currently not toxic, and doesn't show peritoneal signs. 05/17/18 06:45
[2018-05-17] MEDS: Potassium Ch 20mEq in D5-1/2NS 1,000 ML IV SCH ×3 (01:36→21:48)
[2018-05-17] MEDS: Levothyroxine 175 MCG TAB PO SCH (05:38)
--- NOTE | 2018-05-17 08:21 | CP.PCM.PN ---
<Chaitanya Khan - Last Filed: 05/17/18 08:18> Subjective - Date & Time of Evaluation Date of Evaluation: 05/17/18 Time of Evaluation: 06:45 - Subjective Subjective: Gen Sx: Dr Robins Pt S&E. KAMRAN. Reports she has had some small bowel movements, solid small pieces, with some minor relief in pain. Denies N/V, F/C. Pt has multiple admissions for similar problems. Have offered sub-total colectomy in the past but pt has declined. Will revisit conversation this admission. Objective - Vital Signs/Intake and Output Vital Signs (last 24 hours): Temp Pulse Resp BP Pulse Ox 98.9 F 61 18 94/60 L 97 05/17/18 00:09 05/17/18 00:09 05/17/18 00:09 05/17/18 00:09 05/17/18 00:09 - Medications Medications: Current Medications Acetaminophen (Tylenol 325mg Tab) 650 mg PO Q6 PRN PRN Reason: Pain, moderate (4-7) Bisacodyl (Dulcolax) 10 mg [place] DAILY [facility] Docusate Sodium (Colace) 100 mg PO TID [facility] Enoxaparin Sodium (Lovenox) 40 mg SC DAILY [facility] Potassium Chloride/Dextrose/Sod Cl (Potassium Chl 20 Meq In D5-1/2ns) 1,000 mls @ 100 mls/hr IV .Q10H [facility] Last Admin: 05/17/18 01:36 Dose: 100 mls/hr Ketorolac Tromethamine (Toradol) 15 mg IVP Q6 PRN PRN Reason: Pain, severe (8-10) Levothyroxine Sodium (Synthroid) 175 mcg PO DAILY@0630 [facility] Last Admin: 05/17/18 05:38 Dose: 175 mcg Pantoprazole Sodium (Protonix Ec Tab) 20 mg PO DAILY [facility] Pantoprazole Sodium (Protonix Susp) 40 mg PO 0600 [facility] Polyethylene Glycol (Miralax) 17 gm PO DAILY [facility] - Labs Labs: 05/16/18 11:59 05/16/18 11:59 - Constitutional Appears: Non-toxic, No Acute Distress - Head Exam Head Exam: NORMAL INSPECTION - Eye Exam Eye Exam: Normal appearance - Respiratory Exam Respiratory Exam: absent: Accessory Muscle Use, Respiratory Distress - Cardiovascular Exam Cardiovascular Exam: REGULAR RHYTHM. absent: Tachycardia - GI/Abdominal Exam GI & Abdominal Exam: Distended, Soft. absent: Tenderness, Mass Assessment and Plan - Assessment and Plan (Free Text) Assessment: 33F w/ hx of chronic constipation, hx of left julio cesar-colectomy, slow colon transit time Plan: dulcolax suppository +/- rectal tube at GI discretion may need sub-total colectomy, will d/w pt and attending this afternoon d/w Dr Shimon Khan, PGY4 <Landon Robins - Last Filed: 05/20/18 10:56> Objective - Vital Signs/Intake and Output Vital Signs (last 24 hours): Temp Pulse Resp BP Pulse Ox 98.1 F 60 20 97/60 L 97 05/18/18 07:15 05/18/18 07:15 05/18/18 07:15 05/18/18 07:15 05/20/18 09:08 - Labs Labs: 05/18/18 06:28 05/18/18 06:28 Attending/Attestation - Attestation I have personally seen and examined this patient.: Yes I have fully participated in the care of the patient.: Yes I have reviewed all pertinent clinical information, including history, physical exam and plan: Yes Notes (Text): Pt was seen and examined at bedside Agree with above note and assessment Pt is improving clinically Passing gas, No BM Plan : Constipation, PSBO Fleet enema NPO, IVF IV antibiotics repeat Labs in am Plan d.w pt in detail Risk and benefit explained in detail.
[2018-05-17 08:53] VITALS: RESP 20
[2018-05-17 09:05] LABS: BASO % 0.5 % (0.0-2.0); EOS # 0.2 K/uL (0.0-0.7); EOS % 3.3 % (0.0-4.0); HEMOGLOBIN 10.5 g/dL (11.0-16.0); MEAN CELL VOLUME 88.2 fL (81.0-99.0); MEAN PLATELET VOLUME 8.7 fL (7.2-11.7); MONO # 0.4 K/uL (0.0-0.8); MONO % 7.3 % (0.0-10.0); NEUT # 2.9 K/uL (1.8-7.0); NEUT % 51.9 % (50.0-75.0); RBC 3.5 Mil/uL (3.80-5.20); RED CELL DISTRIBUTION WIDTH 14.8 % (11.5-14.5); WHITE BLOOD COUNT 5.5 K/uL (4.8-10.8)
[2018-05-17 09:27] LABS: ALB/GLOB RATIO 1.2 (1.0-2.1); ALBUMIN 3.3 g/dL (3.5-5.0); ALT/SGPT 26 U/L (9-52); AST/SGOT 21 U/L (14-36); BLOOD UREA NITROGEN 10 mg/dL (7-17); CALCIUM 8.2 mg/dl (8.6-10.4); GFR NON-AFRICAN AMERICAN > 60
[2018-05-17] MEDS: Pantoprazole 20 mg EC Tab PO SCH (10:09)
[2018-05-17] MEDS: POLYETHYLENE GLYCOL 3350 17 GM/Dose PACKET PO SCH (10:09)
[2018-05-17] MEDS: Enoxaparin 40 mg Syringe SC SCH (10:09)
--- NOTE | 2018-05-17 14:29 | CP.PCM.CON ---
<Cristina Israel - Last Filed: 05/17/18 14:38> History of Present Illness - History of Present Illness History of Present Illness: Gastroenterology Fellow/PGY6 Consult Note 33 year old female with history of refractory constipation s/p sigmoidectomy 2016, achalasia, and Hypothyroidism presenting with abdominal pain. Admits to diffuse abdominal pain worse on the left similar to prior presentations for constipation. Notes daily 2-3 small hard stools with straining. Associated nausea. Continues to consume mainly a liquid diet with stable weight per patient. Compliant to daily Miralax 17g BID and Colace 100mg TID. Denies vomiting, heartburn, bloating, hematemesis, diarrhea, melena, or hematochezia. EGD 09/2017 showed achalasia s/p pneumatic dilation of LES. Colonoscopy 06/03/16 with poor prep and internal hemorrhoid. Family History- denies stomach cnacer, colon cancer Social History- denies tobacco, alcohol, or illicit drug use Surgical History- left sigmoidectomy 05/2017 Review of Systems - Review of Systems Review of Systems: 12-point review of systems negative except for as above Past Patient History - Infectious Disease Hx of Infectious Diseases: None - Past Medical History & Family History Past Medical History?: Yes - Past Social History Smoking Status: Never Smoked - CARDIAC Hx Cardiac Disorders: No - PULMONARY Hx Respiratory Disorders: No - NEUROLOGICAL Hx Migraine: Yes - HEENT Hx HEENT Problems: No - RENAL Hx Chronic Kidney Disease: No - ENDOCRINE/METABOLIC Hx Hypothyroidism: Yes - HEMATOLOGICAL/ONCOLOGICAL Hx Blood Disorders: No - INTEGUMENTARY Hx Dermatological Problems: No - MUSCULOSKELETAL/RHEUMATOLOGICAL Hx Musculoskeletal Disorders: Yes Hx Back Pain: Yes Hx Falls: No - GASTROINTESTINAL Hx Gastrointestinal Disorders: Yes Hx Bowel Surgery: Yes (PARTIAL COLECTOMY) Hx Constipation: Yes Other/Comment: CHRONIC CONSTIPATION, CHAGAS SYNDROME, ACHALASIA - GENITOURINARY/GYNECOLOGICAL Hx Genitourinary Disorders: No - PSYCHIATRIC Hx Post Traumatic Stress Disorder: Yes Hx Substance Use: No - SURGICAL HISTORY Hx Surgeries: Yes Other/Comment: OPERATION ON THE INTESTINE PT HAD CHRONIC CONSTIPATION AND HAD PARTIAL REMOVAL OF COLON - ANESTHESIA Hx Anesthesia: Yes Hx Anesthesia Reactions: No Hx Malignant Hyperthermia: No Meds Allergies/Adverse Reactions: Allergies Allergy/AdvReac Type Severity Reaction Status Date / Time No Known Allergies Allergy Verified 05/16/18 10:37 - Medications Medications: Current Medications Acetaminophen (Tylenol 325mg Tab) 650 mg PO Q6 PRN PRN Reason: Pain, moderate (4-7) Bisacodyl (Dulcolax) 10 mg [place] DAILY [facility] Last Admin: 05/17/18 10:09 Dose: 10 mg Docusate Sodium (Colace) 100 mg PO TID [facility] Last Admin: 05/17/18 13:40 Dose: 100 mg Enoxaparin Sodium (Lovenox) 40 mg SC DAILY [facility] Last Admin: 05/17/18 10:09 Dose: 40 mg Potassium Chloride/Dextrose/Sod Cl (Potassium Chl 20 Meq In D5-1/2ns) 1,000 mls @ 100 mls/hr IV .Q10H [facility] Last Admin: 05/17/18 12:00 Dose: 100 mls/hr Ketorolac Tromethamine (Toradol) 15 mg IVP Q6 PRN PRN Reason: Pain, severe (8-10) Last Admin: 05/17/18 10:17 Dose: 15 mg Levothyroxine Sodium (Synthroid) 175 mcg PO DAILY@0630 [facility] Last Admin: 05/17/18 05:38 Dose: 175 mcg Pantoprazole Sodium (Protonix Ec Tab) 20 mg PO DAILY [facility] Last Admin: 05/17/18 10:09 Dose: 20 mg Pantoprazole Sodium (Protonix Susp) 40 mg PO 0600 [facility] Polyethylene Glycol (Miralax) 17 gm PO DAILY [facility] Last Admin: 05/17/18 10:09 Dose: 17 gm Physical Exam - Constitutional Appears: Non-toxic, No Acute Distress - Head Exam Head Exam: ATRAUMATIC, NORMOCEPHALIC - Eye Exam Eye Exam: EOMI, PERRL. absent: Scleral icterus Pupil Exam: PERRL. absent: Miosis, Mydriatic - ENT Exam ENT Exam: Mucous Membranes Moist, Normal Oropharynx - Neck Exam Neck exam: Positive for: Full Rom, Normal Inspection - Respiratory Exam Respiratory Exam: Clear to Auscultation Bilateral. absent: Rales, Rhonchi, Wheezes - Cardiovascular Exam Cardiovascular Exam: RRR, +S1, +S2. absent: Gallop, Rubs - GI/Abdominal Exam GI & Abdominal Exam: Distended, Guarding, Hypoactive Bowel Sounds, Soft, Tenderness. absent: Firm, Organomegaly, Rebound, Rigid Additional comments: L>R julio cesar-abdomen tenderness - Extremities Exam Extremities exam: Positive for: normal inspection. Negative for: pedal edema - Neurological Exam Neurological exam: Alert, Oriented x3 - Psychiatric Exam Psychiatric exam: Normal Affect, Normal Mood - Skin Skin Exam: Dry, Intact, Normal Color, Warm Results - Vital Signs Recent Vital Signs: Last Vital Signs Temp 98.5 F 05/17/18 08:00 Pulse 60 05/17/18 08:00 Resp 20 05/17/18 08:00 BP 95/59 L 05/17/18 08:00 Pulse Ox 100 05/17/18 08:00 - Labs Result Diagrams: 05/17/18 08:54 05/17/18 08:54 Labs: Laboratory Results - last 24 hr 05/17/18 05/17/18 08:54 08:54 WBC 5.5 RBC 3.50 L Hgb 10.5 L Hct 30.9 L MCV 88.2 MCH 30.0 MCHC 34.0 RDW 14.8 H Plt Count 217 MPV 8.7 Neut % (Auto) 51.9 Lymph % (Auto) 37.0 [place] % (Auto) 7.3 Eos % (Auto) 3.3 Baso % (Auto) 0.5 Neut # (Auto) 2.9 Lymph # (Auto) 2.0 [place] # (Auto) 0.4 Eos # (Auto) 0.2 Baso # (Auto) 0.0 Sodium 141 Potassium 4.1 Chloride 108 H Carbon Dioxide 23 Anion Gap 13 BUN 10 Creatinine 0.6 L Est GFR ( Amer) > 60 Est GFR (Non-Af Amer) > 60 Random Glucose 93 Calcium 8.2 L Total Bilirubin 0.6 AST 21 ALT 26 Alkaline Phosphatase 38 Total Protein 6.0 L Albumin 3.3 L Globulin 2.7 Albumin/Globulin Ratio 1.2 Assessment & Plan - Assessment and Plan (Free Text) Assessment: 33 year old female with history of refractory constipation s/p sigmoidectomy 2016, achalasia, and Hypothyroidism presenting with abdominal pain. Active treatment of abdominal pain 2/2 constipation with significant bowel distension on cross-sectional imaging. EGD 09/2017 showed achalasia s/p pneumatic dilation of LES. Colonoscopy 06/03/16 with poor prep and internal hemorrhoid. Plan: -NPO, bowel rest -surgery managing- trial laxative suppository -possible consideration for rectal tube for decompression -supportive care: IVFs, pain control, anti-emetics -recommended subtotal colectomy discussed previously and on current admission by surgery and GI team given refractory constipation despite sigmoidectomy <Kedar Cummings - Last Filed: 05/17/18 15:25> Meds - Medications Medications: Current Medications Acetaminophen (Tylenol 325mg Tab) 650 mg PO Q6 PRN PRN Reason: Pain, moderate (4-7) Bisacodyl (Dulcolax) 10 mg NV DAILY [facility] Last Admin: 05/17/18 10:09 Dose: 10 mg Docusate Sodium (Colace) 100 mg PO TID [facility] Last Admin: 05/17/18 13:40 Dose: 100 mg Enoxaparin Sodium (Lovenox) 40 mg SC DAILY [facility] Last Admin: 05/17/18 10:09 Dose: 40 mg Potassium Chloride/Dextrose/Sod Cl (Potassium Chl 20 Meq In D5-1/2ns) 1,000 mls @ 100 mls/hr IV .Q10H [facility] Last Admin: 05/17/18 12:00 Dose: 100 mls/hr Ketorolac Tromethamine (Toradol) 15 mg IVP Q6 PRN PRN Reason: Pain, severe (8-10) Last Admin: 05/17/18 10:17 Dose: 15 mg Levothyroxine Sodium (Synthroid) 175 mcg PO DAILY@0630 [facility] Last Admin: 05/17/18 05:38 Dose: 175 mcg Pantoprazole Sodium (Protonix Ec Tab) 20 mg PO DAILY [facility] Last Admin: 05/17/18 10:09 Dose: 20 mg Pantoprazole Sodium (Protonix Susp) 40 mg PO 0600 [facility] Polyethylene Glycol (Miralax) 17 gm PO DAILY [facility] Last Admin: 05/17/18 10:09 Dose: 17 gm Results - Vital Signs Recent Vital Signs: Last Vital Signs Temp 98.5 F 05/17/18 08:00 Pulse 60 05/17/18 08:00 Resp 20 05/17/18 08:00 BP 95/59 L 05/17/18 08:00 Pulse Ox 100 05/17/18 08:00 - Labs Result Diagrams: 05/17/18 08:54 05/17/18 08:54 Labs: Laboratory Results - last 24 hr 05/17/18 05/17/18 08:54 08:54 WBC 5.5 RBC 3.50 L Hgb 10.5 L Hct 30.9 L MCV 88.2 MCH 30.0 MCHC 34.0 RDW 14.8 H Plt Count 217 MPV 8.7 Neut % (Auto) 51.9 Lymph % (Auto) 37.0 [place] % (Auto) 7.3 Eos % (Auto) 3.3 Baso % (Auto) 0.5 Neut # (Auto) 2.9 Lymph # (Auto) 2.0 [place] # (Auto) 0.4 Eos # (Auto) 0.2 Baso # (Auto) 0.0 Sodium 141 Potassium 4.1 Chloride 108 H Carbon Dioxide 23 Anion Gap 13 BUN 10 Creatinine 0.6 L Est GFR ( Amer) > 60 Est GFR (Non-Af Amer) > 60 Random Glucose 93 Calcium 8.2 L Total Bilirubin 0.6 AST 21 ALT 26 Alkaline Phosphatase 38 Total Protein 6.0 L Albumin 3.3 L Globulin 2.7 Albumin/Globulin Ratio 1.2 Attending/Attestation - Attestation I have personally seen and examined this patient.: Yes I have fully participated in the care of the patient.: Yes I have reviewed all pertinent clinical information: Yes Notes (Text): 05/17/18 15:20 I have seen and examined patient with GI fellow. Agree with above documentation with the following additions. In brief, this is a 33 year old female with history of medication refractory constipation, colonic atonia s/p sigmoidectomy, achalasia, hypothyroidism who presents to hospital with complaint of abdominal pain. She describes diffuse 6/10 intensity left sided abdominal pain that is associated with nausea. She typically has 2-3 small volume bowel movements daily with use of laxative therapy but recently pain has become worse. She is maintained on a liquid diet due to prior diagnosis of achalasia, otherwise denies vomiting, fever/chills, weight loss, or blood in stool. 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 Please reconsult as necessary , thank you.
--- NOTE | 2018-05-17 16:29 | CP.PCM.PN ---
Subjective - Date & Time of Evaluation Date of Evaluation: 05/17/18 Time of Evaluation: 16:24 - Subjective Subjective: PGY-[address] Blackwell Patient seen and examined at bedside. Patient still complaining of abdominal pain, though mildly improved from yesterday. Patient is having bowel movements , though they are small. Denies diarrhea or bloody BMs. Denies nausea or vomiting. Patient advanced to clear liquid diets starting tomorrow morning, per surgery recommendations. We will see how patient tolerates clear liquids tomorrow. Denies chest pain, headache, palpitations, dizziness, paresthesias. Objective - Vital Signs/Intake and Output Vital Signs (last 24 hours): Temp Pulse Resp BP Pulse Ox 98.5 F 60 20 95/59 L 100 05/17/18 08:00 05/17/18 08:00 05/17/18 08:00 05/17/18 08:00 05/17/18 08:00 Intake and Output: 05/17/18 05/17/18 06:59 18:59 Intake Total 850 Balance 850 - Medications Medications: Current Medications Acetaminophen (Tylenol 325mg Tab) 650 mg PO Q6 PRN PRN Reason: Pain, moderate (4-7) Bisacodyl (Dulcolax) 10 mg [place] DAILY [facility] Last Admin: 05/17/18 10:09 Dose: 10 mg Docusate Sodium (Colace) 100 mg PO TID [facility] Last Admin: 05/17/18 13:40 Dose: 100 mg Enoxaparin Sodium (Lovenox) 40 mg SC DAILY [facility] Last Admin: 05/17/18 10:09 Dose: 40 mg Potassium Chloride/Dextrose/Sod Cl (Potassium Chl 20 Meq In D5-1/2ns) 1,000 mls @ 100 mls/hr IV .Q10H [facility] Last Admin: 05/17/18 12:00 Dose: 100 mls/hr Ketorolac Tromethamine (Toradol) 15 mg IVP Q6 PRN PRN Reason: Pain, severe (8-10) Last Admin: 05/17/18 10:17 Dose: 15 mg Lactobacillus Acidophilus (Bacid Acidophilus) 1 cap PO BID [facility] Levothyroxine Sodium (Synthroid) 175 mcg PO DAILY@0630 [facility] Last Admin: 05/17/18 05:38 Dose: 175 mcg Pantoprazole Sodium (Protonix Ec Tab) 20 mg PO DAILY [facility] Last Admin: 05/17/18 10:09 Dose: 20 mg Pantoprazole Sodium (Protonix Susp) 40 mg PO 0600 [facility] Polyethylene Glycol (Miralax) 17 gm PO DAILY [facility] Last Admin: 05/17/18 10:09 Dose: 17 gm - Labs Labs: 05/17/18 08:54 05/17/18 08:54 - Head Exam Head Exam: ATRAUMATIC, NORMAL INSPECTION - Eye Exam Eye Exam: EOMI, Normal appearance - ENT Exam ENT Exam: Mucous Membranes Moist, Normal Exam - Respiratory Exam Respiratory Exam: Clear to Ausculation Bilateral, NORMAL BREATHING PATTERN - Cardiovascular Exam Cardiovascular Exam: REGULAR RHYTHM, +S1, +S2 - GI/Abdominal Exam GI & Abdominal Exam: Soft, Tenderness, Normal Bowel Sounds Additional comments: +diffuse abdominal tenderness to palpation, L>R - Extremities Exam Extremities Exam: Full ROM, Normal Capillary Refill, Normal Inspection - Neurological Exam Neurological Exam: Alert, Awake, CN II-XII Intact, Normal Gait, Oriented x3 Neuro motor strength exam: Left Upper Extremity: 5, Right Upper Extremity: 5, Left Lower Extremity: 5, Right Lower Extremity: 5 - Skin Skin Exam: Dry, Intact, Normal Color, Warm Assessment and Plan - Assessment and Plan (Free Text) Assessment: Abdominal Pain/Constipation General Surgery Consulted, Dr. Robins * Advanced to clear liquids per surgery --> will assess how she is tolerating her diet tomorrow. * Bowel regimen being managed per surgery * Miralax * Dulcolax * Colace * Gentle IVF * NSAIDs as needed * No prokinetic agents for now GI signed off - case being managed per surgery * Pt will require total colonic resection - surgery will have conversation with the patient if she would like to do this procedure as inpatient vs outpatient. Obstruction Series: * Persistent fecal impaction in the ascending and proximal transverse colon and cashews distension of the splenic fracture and descending colon. Delayed presentation of Hirschsprung's disease is a consideration. Clinical follow-up is advised. * Per GI (Dr. 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 Rishi Alcocer, PGY-1
[2018-05-17] MEDS: Lactobacillus Acidophilus 500 MU Cap PO SCH (21:45)
[2018-05-18 03:45] VITALS: PULSE 60
[2018-05-18] MEDS ORDERED: Pantoprazole 40 mg Susp UD PO SCH (06:00)
[2018-05-18] MEDS: Levothyroxine 175 MCG TAB PO SCH (06:21)
[2018-05-18 06:35] LABS: BASO % 0.5 % (0.0-2.0); EOS # 0.2 K/uL (0.0-0.7); EOS % 4.7 % (0.0-4.0); HEMOGLOBIN 10.6 g/dL (11.0-16.0); LYMPH # 2.3 K/uL (1.0-4.3); LYMPH % 47.4 % (20.0-40.0); MEAN CORPUSCULAR HEMOGLOBIN 30.3 pg (27.0-31.0); MEAN CORPUSCULAR HGB CONC 34.4 g/dL (33.0-37.0); MEAN PLATELET VOLUME 8.2 fL (7.2-11.7); MONO # 0.3 K/uL (0.0-0.8); MONO % 7.1 % (0.0-10.0); NEUT # 1.9 K/uL (1.8-7.0); NEUT % 40.3 % (50.0-75.0); RBC 3.5 Mil/uL (3.80-5.20); RED CELL DISTRIBUTION WIDTH 14.6 % (11.5-14.5); WHITE BLOOD COUNT 4.8 K/uL (4.8-10.8)
[2018-05-18] MEDS: Potassium Ch 20mEq in D5-1/2NS 1,000 ML IV SCH (06:44)
[2018-05-18 07:37] LABS: ALB/GLOB RATIO 1.2 (1.0-2.1); ALBUMIN 3.3 g/dL (3.5-5.0); ALT/SGPT 22 U/L (9-52); AST/SGOT 18 U/L (14-36); BLOOD UREA NITROGEN 6 mg/dL (7-17); CALCIUM 8.2 mg/dl (8.6-10.4); GFR NON-AFRICAN AMERICAN > 60
--- NOTE | 2018-05-18 08:57 | CP.PCM.PN ---
<Chaitanya Khan - Last Filed: 05/18/18 08:53> Subjective - Date & Time of Evaluation Date of Evaluation: 05/18/18 Time of Evaluation: 08:53 - Subjective Subjective: General Surgery: Dr Robins Pt S&E. Reports she is feeling a bit better. Has had a bowel movement. Tolerating liquids. Yesterday we had an extensive discussion with pt and Dr Robins at bedside. Pt was offered sub-total colectomy with the understanding that this is the last thing we can offer her beyond continued medical treatment. Pt states she is agreeable to this plan as she is tired of returning to the hospital for her pain. She has an office appointment with us on 05/29, pt instructed to follow up at that appointment and we will plan her surgery moving forward. Objective - Vital Signs/Intake and Output Vital Signs (last 24 hours): Temp Pulse Resp BP Pulse Ox 98.2 F 60 20 91/52 L 98 05/18/18 00:00 05/18/18 00:00 05/18/18 00:00 05/18/18 00:00 05/18/18 00:00 Intake and Output: 05/18/18 05/18/18 06:59 18:59 Intake Total 1999 Balance 1999 - Medications Medications: Current Medications Acetaminophen (Tylenol 325mg Tab) 650 mg PO Q6 PRN PRN Reason: Pain, moderate (4-7) Bisacodyl (Dulcolax) 10 mg [place] DAILY [facility] Last Admin: 05/17/18 10:09 Dose: 10 mg Docusate Sodium (Colace) 100 mg PO TID [facility] Last Admin: 05/17/18 17:32 Dose: 100 mg Enoxaparin Sodium (Lovenox) 40 mg SC DAILY [facility] Last Admin: 05/17/18 10:09 Dose: 40 mg Potassium Chloride/Dextrose/Sod Cl (Potassium Chl 20 Meq In D5-1/2ns) 1,000 mls @ 100 mls/hr IV .Q10H [facility] Last Admin: 05/18/18 06:44 Dose: 100 mls/hr Ketorolac Tromethamine (Toradol) 15 mg IVP Q6 PRN PRN Reason: Pain, severe (8-10) Last Admin: 05/17/18 21:52 Dose: 15 mg Lactobacillus Acidophilus (Bacid Acidophilus) 1 cap PO BID [facility] Last Admin: 05/17/18 21:45 Dose: 1 cap Levothyroxine Sodium (Synthroid) 175 mcg PO DAILY@0630 [facility] Last Admin: 05/18/18 06:21 Dose: 175 mcg Pantoprazole Sodium (Protonix Ec Tab) 20 mg PO DAILY [facility] Last Admin: 05/17/18 10:09 Dose: 20 mg Pantoprazole Sodium (Protonix Susp) 40 mg PO 0600 [facility] Last Admin: 05/18/18 06:22 Dose: 40 mg Polyethylene Glycol (Miralax) 17 gm PO DAILY [facility] Last Admin: 05/17/18 10:09 Dose: 17 gm - Labs Labs: 05/18/18 06:28 05/18/18 06:28 - Constitutional Appears: Non-toxic, No Acute Distress - Head Exam Head Exam: NORMAL INSPECTION - ENT Exam ENT Exam: Mucous Membranes Moist - Respiratory Exam Respiratory Exam: absent: Accessory Muscle Use, Respiratory Distress - Cardiovascular Exam Cardiovascular Exam: REGULAR RHYTHM - GI/Abdominal Exam GI & Abdominal Exam: Soft. absent: Distended, Firm, Tenderness - Psychiatric Exam Psychiatric exam: Normal Affect - Skin Skin Exam: Normal Color, Warm Assessment and Plan - Assessment and Plan (Free Text) Assessment: 33F with chronic constipation 2/2 slow GI transit time Plan: cont mag citrate and/or dulcolax PRN pt to f/u in clinic on , will plan for subtotal colectomy clear for d/c of tolerating a diet d/w Dr Shimon Khan, PGY4 <Landon Robins B - Last Filed: 05/20/18 11:02> Objective - Vital Signs/Intake and Output Vital Signs (last 24 hours): Temp Pulse Resp BP Pulse Ox 98.1 F 60 20 97/60 L 97 05/18/18 07:15 05/18/18 07:15 05/18/18 07:15 05/18/18 07:15 05/20/18 09:08 - Labs Labs: 05/18/18 06:28 05/18/18 06:28 Attending/Attestation - Attestation I have personally seen and examined this patient.: Yes I have fully participated in the care of the patient.: Yes I have reviewed all pertinent clinical information, including history, physical exam and plan: Yes Notes (Text): Pt was seen and examined at bedside Agree with above note and assessment Pt is improving clinically Passing gas and BM Can be DC home f.u as out pt Plan d.w pt in detail Risk and benefit explained in detail.
[2018-05-18 09:03] VITALS: BP 97/60; TEMP 98.1
--- NOTE | 2018-05-18 10:07 | CP.PCM.DIS ---
Provider - Provider Date of Admission: 05/16/18 19:07 Attending physician: Sebastián Altamirano MD Time Spent in preparation of Discharge (in minutes): 45 Diagnosis - Discharge Diagnosis (1) Large bowel obstruction Status: Chronic Comment: Acute on Chronic (2) Constipation Status: Chronic Comment: Acute on chronic (3) Abdominal pain Status: Acute Hospital Course - Lab Results Lab Results: Most Recent Lab Values WBC 4.8 K/uL (4.8-10.8) 05/18/18 06:28 RBC 3.50 Mil/uL (3.80-5.20) L 05/18/18 06:28 Hgb 10.6 g/dL (11.0-16.0) L 05/18/18 06:28 Hct 30.8 % (34.0-47.0) L 05/18/18 06:28 MCV 88.0 fL (81.0-99.0) 05/18/18 06:28 MCH 30.3 pg (27.0-31.0) 05/18/18 06:28 MCHC 34.4 g/dL (33.0-37.0) 05/18/18 06:28 RDW 14.6 % (11.5-14.5) H 05/18/18 06:28 Plt Count 213 K/uL (130-400) 05/18/18 06:28 MPV 8.2 fL (7.2-11.7) 05/18/18 06:28 Neut % (Auto) 40.3 % (50.0-75.0) L 05/18/18 06:28 Lymph % (Auto) 47.4 % (20.0-40.0) H 05/18/18 06:28 [place] % (Auto) 7.1 % (0.0-10.0) 05/18/18 06:28 Eos % (Auto) 4.7 % (0.0-4.0) H 05/18/18 06:28 Baso % (Auto) 0.5 % (0.0-2.0) 05/18/18 06:28 Neut # (Auto) 1.9 K/uL (1.8-7.0) 05/18/18 06:28 Lymph # (Auto) 2.3 K/uL (1.0-4.3) 05/18/18 06:28 [place] # (Auto) 0.3 K/uL (0.0-0.8) 05/18/18 06:28 Eos # (Auto) 0.2 K/uL (0.0-0.7) 05/18/18 06:28 Baso # (Auto) 0.0 K/uL (0.0-0.2) 05/18/18 06:28 Sodium 138 mmol/L (132-148) 05/18/18 06:28 Potassium 4.1 mmol/L (3.6-5.2) 05/18/18 06:28 Chloride 107 mmol/L (98-107) 05/18/18 06:28 Carbon Dioxide 22 mmol/L (22-30) 05/18/18 06:28 Anion Gap 13 (10-20) 05/18/18 06:28 BUN 6 mg/dL (7-17) L 05/18/18 06:28 Creatinine 0.6 mg/dL (0.7-1.2) L 05/18/18 06:28 Est GFR ( Amer) > 60 05/18/18 06:28 Est GFR (Non-Af Amer) > 60 05/18/18 06:28 Random Glucose 95 mg/dL (65-105) 05/18/18 06: Calcium 8.2 mg/dl (8.6-10.4) L 05/18/18 06:28 Total Bilirubin 0.5 mg/dL (0.2-1.3) 05/18/18 06:28 AST 18 U/L (14-36) 05/18/18 06:28 ALT 22 U/L (9-52) 05/18/18 06:28 Alkaline Phosphatase 34 U/L (38-126) L 05/18/18 06:28 Total Protein 6.0 g/dL (6.3-8.3) L 05/18/18 06:28 Albumin 3.3 g/dL (3.5-5.0) L 05/18/18 06:28 Globulin 2.7 gm/dL (2.2-3.9) 05/18/18 06:28 Albumin/Globulin Ratio 1.2 (1.0-2.1) 05/18/18 06:28 Lipase 102 U/L (23-300) 05/16/18 11:59 Urine Color Straw (YELLOW) 05/16/18 11:59 Urine Clarity Clear (Clear) 05/16/18 11:59 Urine pH 5.0 (5.0-8.0) 05/16/18 11:59 Ur Specific [place] 1.008 (1.003-1.030) 05/16/18 11:59 Urine Protein Negative mg/dL (NEGATIVE) 05/16/18 11:59 Urine Glucose (UA) Normal mg/dL (Normal) 05/16/18 11:59 Urine Ketones Negative mg/dL (NEGATIVE) 05/16/18 11:59 Urine Blood Negative (NEGATIVE) 05/16/18 11:59 Urine Nitrate Negative (NEGATIVE) 05/16/18 11:59 Urine Bilirubin Negative (NEGATIVE) 05/16/18 11:59 Urine Urobilinogen Normal mg/dL (0.2-1.0) 05/16/18 11:59 Ur Leukocyte Esterase Neg [place]/uL (Negative) 05/16/18 11:59 Urine RBC (Auto) 1 /hpf (0-3) 05/16/18 11:59 Ur Squamous Epith Cells 1 /hpf (0-5) 05/16/18 11:59 Urine HCG, Qual Negative (NEGATIVE) 05/16/18 11:59 - Hospital Course Hospital Course: PGY-[address] Jaquan Blackwell HPI: Patient is a 33 year old female with a past medical history of achalasia, hypothyroidism, chronic constipation, presenting with a complaint of abdominal pain and constipation. Patient was recently admitted and discharged on 2017-05/08/2018 for the same complaints. Patient has been experiencing these symptoms off and on since she had a sigmoid resection in 2016. Over the past four days her pain has been worsening with only small bowel movement and nausea , no vomiting. Her last BM was yesterday. She has been tolerating a liquid diet for the past two weeks. She takes colace and miralax as a daily medication. Denies fevers, chills, diarrhea, chest pain, shortness of breath, numbness or tingling. Hospital Course: General Surgery Consulted, Dr. Robins Abdominal series done (05/16/2018) - persistent fecal impaction in the ascending and proximal transverse colon and cashews distention of the splenic fracture and descending colon. Delayed presentation of Hirschsprung's disease is a consideration. 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 Fleet enema was completed on 05/16/2018; patient was placed on NPO, given gentle IV fluid hydration and started on Toradol 30 mg IVP and Tylenol 625 mg PRN for pain relief. S/p fleet enema patient given Dulcolax suppository, Colace 100 mg BID and Miralax 10 mg PO daily Patient had small frequent BMs daily throughout hospital stay with good relief of abdominal pain and distention. She tolerated a clear liquid diet. No rectal tube for decompression was necessary. Surgical and GI team discussed with patient necessity for a total colectomy within the next few weeks. Advised that patient continue a clear liquid diet at home with continued use of Magnesium Citrate and/or Dulcolax at home PRN. She has an appointment scheduled with Dr. Robins in the office on 05/29/2018, at which time total colectomy date will be established. Patient remained afebrile during stay, with no leukocytosis and no evidence of an infectious process Medications during hospital stay: - Toradol 30 mg IVP q6h PRN - Protonix 20 mg PO daily - Tylenol 650 mg PO q6h PRN - Miralax 10 mg PO daily - Dulcolax - Colace 100 mg BID - D 5 - 1/2 NS with 20 K+ meq at 100 ml/hr Hypothyroidism - patient treated with Synthroid 175 mcg PO daily as per home medications Prophylactic Care - DVT prophylaxis - SCDs - GI Prophylaxis - 20 mg PO daily Assessment and Plan: Patient is stable for discharge per Dr. Blackwell. Please return to the ER if symptoms reoccur or worsen. Follow up at Dr. Robins's office to schedule for surgery on 05/29 at 9: 45 Continue with a clear liquid only diet until follow up with Dr. Robins Patient planned to have a subtotal colectomy performed as outpatient with Dr. Robins Continue with your medications as per your medication reconciliation. We have provided you with a prescription for your Levothyroxine 175 mcg 1 tab by mouth daily. To keep stools soft, please drink 8oz of prune juice three times per day with meals until follow up with Dr. Robins. Discharge Exam - Head Exam Head Exam: NORMAL INSPECTION - Eye Exam Eye Exam: EOMI, Normal appearance Pupil Exam: NORMAL ACCOMODATION, PERRL - Respiratory Exam Respiratory Exam: NORMAL BREATHING PATTERN, UNREMARKABLE - Cardiovascular Exam Cardiovascular Exam: REGULAR RHYTHM, +S1, +S2. absent: Rubs - GI/Abdominal Exam GI & Abdominal Exam: Hypoactive Bowel Sounds, Soft, Tenderness Additional comments: Mild epigastric tenderness to palpation L>R - Extremities Exam Extremities exam: normal inspection, pedal pulses present - Neurological Exam Neurological exam: Alert, CN II-XII Intact, Normal Gait, Oriented x3 - Psychiatric Exam Psychiatric exam: Normal Affect, Normal Mood - Skin Skin Exam: Dry, Intact, Normal Color, Warm Discharge Plan - Discharge Medications Prescriptions: Levothyroxine [Synthroid] 175 mcg PO DAILY #30 tab - Follow Up Plan Condition: STABLE Disposition: HOME/ ROUTINE Additional Instructions: Patient is stable for discharge per Dr. Blackwell. Please return to the ER if symptoms reoccur or worsen. Follow up at Dr. Robins's office to schedule for surgery on 05/29 at 9: 45 Continue with a clear liquid only diet until follow up with Dr. Robins Patient planned to have a subtotal colectomy performed as outpatient with Dr. Robins Continue with your medications as per your medication reconciliation. We have provided you with a prescription for your Levothyroxine 175 mcg 1 tab by mouth daily. To keep stools soft, please drink 8oz of prune juice three times per day with meals until follow up with Dr. Robins. El paciente es estable para el crista segn el Dr. Blackwell. Por favor regrese a la madison de emergencias si los sntomas reaparecen o empeoran. Ella un seguimiento en la oficina del Dr. Robins para programar la ciruga el 05/29 a las 9:45. Continuar con karla dieta solo de lquidos job hasta el seguimiento con el Dr. Robins El paciente plane realizar karla colectoma subtotal kevin paciente ambulatorio con el Dr. Robins Contine con una medicamentos segn la reconciliacin de duran medicamento. Le hemos proporcionado karla prescripcin para duran Levothyroxine 175 mcg 1 ficha por la boca diariamente. Para mantener las heces blandas, ganesh 8 onzas de jugo de ciruela ru veces al d a con las comidas hasta el seguimiento con el Dr. Robins. Referrals: Landon Robins MD [Staff Provider] -
[2018-05-18] MEDS: Lactobacillus Acidophilus 500 MU Cap PO SCH (10:41)
[2018-05-18] MEDS: POLYETHYLENE GLYCOL 3350 17 GM/Dose PACKET PO SCH (10:42)
[2018-05-18] MEDS: Enoxaparin 40 mg Syringe SC SCH (10:42)
[2018-05-18] MEDS: Pantoprazole 20 mg EC Tab PO SCH (10:43)
[2018-05-20 09:07] VITALS: O2SAT 97
== END 2018-05-18 15:46 | disposition home or self-care (01) | DRG 181 ==
LOC: C.ER 10:18 → C.9E 19:07 → C.3T 20:55
PROVIDERS: ADMIT Internal Medicine; ATTEND Internal Medicine
DX: K56.690 Other partial intestinal obstruction (principal); K56.41 Fecal impaction; K63.89 Other specified diseases of intestine; E03.9 Hypothyroidism, unspecified; K22.0 Achalasia of cardia; F43.10 Post-traumatic stress disorder, unspecified

== ENCOUNTER 2018-06-11 06:02 | Inpatient (IN) | payer MEDICAID, SELFPAY ==
[2018-06-08 11:23] VITALS: BMI 23.2
[2018-06-11] MEDS ORDERED: Propofol 10 mg/ml Inj (20 ML) ONE (07:32)
[2018-06-11] MEDS ORDERED: Midazolam 2 MG/2 ML VIAL ONE (07:32)
[2018-06-11] MEDS ORDERED: Rocuronium 10 mg/ml (5 ml) ONE (07:34)
[2018-06-11] MEDS ORDERED: ceFAZolin IV 1 gm in Dextrose 2 GM/100 ML BAG IVPB ONE ×2 (07:40→15:09)
[2018-06-11] MEDS ORDERED: Lidocaine Hydrochloride 10 ML INJ ONE (07:41)
[2018-06-11] MEDS ORDERED: Bupivacaine-Epi 0.5%-1:200,000 PF Inj ONE (07:41)
[2018-06-11] MEDS ORDERED: metroNIDAZOLE IV 500 mg/100 ml 500 MG/100 ML BAG ONE ×2 (08:06→15:09)
[2018-06-11] MEDS ORDERED: Bupivacaine 0.5% Inj(30mL) IJ ONE (08:55)
[2018-06-11] MEDS ORDERED: Bupivacaine 0.25% 20 ML INJ IJ ONE (09:31)
[2018-06-11] MEDS ORDERED: BUPIVACAINE 0.125%/0.9% NACL 600 ML IJ ONE (14:00)
[2018-06-11] MEDS ORDERED: Neostigmine Methylsulfate 3mg/3ml Syringe IV ONE (14:08)
[2018-06-11] MEDS ORDERED: HYDROmorphone 0.5 mg/0.5 ml ISec IVP PRN (15:22)
[2018-06-11] MEDS ORDERED: HYDROmorphone 1 mg/ml ISec ONE (15:26)
--- NOTE | 2018-06-11 15:29 | PCM.SURG1 ---
Surgeon's Initial Post Op Note - Surgeon's Notes Surgeon: Dr Robins Squeegee Operator: Dr Khan PGY4, Symone GALLAGHER Type of Anesthesia: General Endo Pre-Operative Diagnosis: chronic constipation. slow gut motility Operative Findings: chronically dilated colon Post-Operative Diagnosis: as above Operation Performed: sub-total colectomy w/ ileocolic anastamosis Specimen/Specimens Removed: colon Estimated Blood Loss: EBL {In ML}: 100 Blood Products Given: N/A Drains Used: Alvin Post-Op Condition: Good Date of Surgery/Procedure: 06/11/18 Time of Surgery/Procedure: 15:29
[2018-06-11] MEDS ORDERED: HYDROmorphone 1 mg/ml ISec IVP ONE (15:30)
[2018-06-11] MEDS: Sodium Chloride 0.9% 1,000 ML IV SCH ×2 (16:30→23:30)
[2018-06-11] MEDS: Piperacill/Tazo 3.375gm in Dex 3.375 GM/50 ML BAG IVPB SCH ×2 (17:55→23:48)
[2018-06-11] MEDS ORDERED: DiphenhydrAMINE 50 mg/ml Inj IVP PRN (18:28)
[2018-06-11] MEDS ORDERED: Ophthalmic Irrigation, Soln OD PRN (18:28)
[2018-06-11] MEDS ORDERED: Lubricant Eye Drops UD OD PRN (18:31)
[2018-06-11] MEDS ORDERED: Influenza Vaccine 60 MCG/0.5 ML SYR (3 yr & up) IM ONE (21:15)
[2018-06-12] MEDS: Sodium Chloride 0.9% 1,000 ML IV SCH ×2 (00:45→08:38)
--- NOTE | 2018-06-12 01:18 | OP ---
PROCEDURE DATE: 06/11/2018 PREOPERATIVE DIAGNOSES: 1. Recurrent bowel obstruction. 2. Chronic constipation. 3. Massive colonic dilatation. POSTOPERATIVE DIAGNOSES: 1. Recurrent bowel obstruction. 2. Chronic constipation. 3. Massive colonic dilatation. 4. Extensive postoperative adhesions. PROCEDURES: 1. Robotic subtotal colectomy. 2. Robotic extensive enterolysis and lysis of lesions. 3. Open enterolysis and lysis of adhesion. 4. Robotic mobilization of the splenic flexure. 5. Revision of abdominal scar 8 cm x 2 cm. 6. Bilateral On-Q pain catheter pump placement. SURGEON: Landon Robins MD ACID BATH MIXER: SHADY Reddy TYPE OF ANESTHESIA: General endotracheal tube anesthesia. ESTIMATED BLOOD LOSS: Around 100 mL. DRAINS: A 19-[place] Alvin drain was placed. COMPLICATIONS: None. INTRAOPERATIVE FINDINGS: The patient had massively dilated cecum, ascending colon, transverse colon, and descending colon. The patient also had extensive postoperative adhesions of the small bowel to anterior abdominal wall, colon to the lateral abdominal wall, small bowel to small bowel, small bowel to colon, and small bowel to the pelvis. An extensive enterolysis and lysis of adhesion were done. The open enterolysis was also done after converting the procedure to open. DESCRIPTION OF PROCEDURE: On intraoperative steps, this is a 33-year-old female who was diagnosed with chronic constipation and the patient had multiple admissions for massive colonic dilatation with bowel obstruction and the patient was admitted in the hospital multiple times since the last 2 years, and the patient finally was consented for the laparoscopic-assisted robotic subtotal colectomy. The patient was consented for the procedure, brought to the OR, placed supine on operating table. After induction of anesthesia, the abdomen was prepped and draped in the usual sterile fashion. The right upper quadrant incision was made using the Visiport technique. Peritoneal cavity was entered. Pneumo was created, and the patient found to have a small bowel adhesion in the anterior abdominal wall and first enterolysis and lysis of adhesions were done. Now, four 8-mm ports were placed in the left flank, left upper quadrant, right lower quadrant, as well as in the supraumbilical area. After that, robot was brought in. Camera arm as well as arm 1 and arm 2 were docked on the left side. First cecum as well as ascending colon were mobilized. The patient had extensive adhesion of the appendix to the lateral abdominal wall, small bowel to the pelvis, and first the right ureter was identified. The dissection was carried down and the cecum was mobilized as well as ascending colon was mobilized medially. The duodenum, the right kidney, as well as IVC were identified and the mesocolon was resected after dividing the terminal ileum. The dissection was carried down up to the transverse colon and now the robot was undocked. The splenic flexure mobilization was done and the dissection was carried down in the transverse mesocolon up to the splenic flexure and the descending colon, and now the robot was undocked again and it was re-docked on the right side for the pelvis and the descending colon. The descending colon had large amount of small bowel attached to the anterior abdominal wall as well as to the descending colon. First, lysis of adhesion was done. The left ureter was identified and colon was mobilized medially. The left ureter was also stressed upward and the mesocolon was resected on the descending colon. The inferior mesenteric artery was kept intact for supply of the lower part of the descending colon and the dissection was carried down to free up the small intestinal mesentery. Now, the procedure was converted to open. All the instruments were taken out, robot was undocked, and the scar was revised and it was sent off the table for the pathology. Peritoneal cavity was entered, and the [id number] anastomosis was done. The intraoperative Firefly was used to identify the blood supply before and after anastomosis and there was good blood supply. The anastomosis was not in tension as well as the leak test was done and there was no leak identified. After that, the 19-[place] Alvin drain was placed. Again, the pneumo was recreated and intraoperative Firefly was used to identify the blood supply, and after that all the ports were taken out under vision. Pneumo was deflated. The abdominal wound was closed in multiple layers, the fascia with #1 looped PDS as well as interrupted 0 Prolene sutures, and all the port sites were closed and drain was secured to the skin. The bilateral On-Q pain catheter pump was placed before closing the peritoneal cavity and the wound was irrigated and the wound was closed in multiple layers with 2-0 Vicryl as well as 4-0 Monocryl and dry sterile dressing was applied. The patient tolerated the procedure well. Count of instruments and gauze were correct. There was no apparent complication. The patient was extubated in OR and sent to the postanesthesia care unit in stable condition. Landon Robins MD
[2018-06-12] MEDS: Piperacill/Tazo 3.375gm in Dex 3.375 GM/50 ML BAG IVPB SCH ×3 (05:16→17:18)
[2018-06-12] MEDS: HYDROmorphone 0.5 mg/0.5 ml ISec IVP PRN ×4 (05:24→20:55)
[2018-06-12 06:35] LABS: BASO % 0.3 % (0.0-2.0); EOS % 0.2 % (0.0-4.0); HEMOGLOBIN 10.8 g/dL (11.0-16.0); LYMPH # 0.9 K/uL (1.0-4.3); LYMPH % 8.1 % (20.0-40.0); MEAN CELL VOLUME 87.8 fL (81.0-99.0); MEAN CORPUSCULAR HEMOGLOBIN 30.2 pg (27.0-31.0); MEAN CORPUSCULAR HGB CONC 34.4 g/dL (33.0-37.0); MEAN PLATELET VOLUME 8.7 fL (7.2-11.7); MONO # 0.7 K/uL (0.0-0.8); MONO % 6.8 % (0.0-10.0); NEUT % 84.6 % (50.0-75.0); PLATELET COUNT 190 K/uL (130-400); RBC 3.57 Mil/uL (3.80-5.20); RED CELL DISTRIBUTION WIDTH 14.1 % (11.5-14.5); WHITE BLOOD COUNT 10.7 K/uL (4.8-10.8)
[2018-06-12 08:09] LABS: BLOOD UREA NITROGEN 4 mg/dL (7-17); CALCIUM 7.6 mg/dl (8.6-10.4); GFR NON-AFRICAN AMERICAN > 60
[2018-06-12 08:24] LABS: ANISOCYTOSIS SLIGHT; BANDS 1 % (0-2); HYPOCHROMIC SLIGHT; LYMPHOCYTE 7 % (20-40); MONOCYTE 4 % (0-10); NEUTROPHIL 88 % (50-75); PLATELET ESTIMATE NORMAL (NORMAL); POIKILOCYTOSIS SLIGHT; TOTAL CELLS COUNTED 100
[2018-06-12] MEDS: Levothyroxine 175 MCG TAB PO SCH (10:51)
[2018-06-12] MEDS: Enoxaparin 40 mg Syringe SC SCH (10:51)
--- NOTE | 2018-06-12 17:07 | CP.PCM.PN ---
<YosephNaima - Last Filed: 06/12/18 17:00> Subjective - Date & Time of Evaluation Date of Evaluation: 06/12/18 Time of Evaluation: 17:00 - Subjective Subjective: Surgery Pt seen and examined. Underwent surgery yesterday and tolerated it well. Denies fever, nausea, Bm. C/O abd pain. Drain has SS fluids, OnQ in place. Manley DCed. voiding. Ambulating. Objective - Vital Signs/Intake and Output Vital Signs (last 24 hours): Temp Pulse Resp BP Pulse Ox 98.3 F 82 20 99/65 L 97 06/12/18 15:59 06/12/18 15:59 06/12/18 15:59 06/12/18 15:59 06/12/18 15:59 Intake and Output: 06/12/18 06/12/18 06:59 18:59 Intake Total 1650 975 Output Total 2560 1115 Balance -910 -140 - Medications Medications: Current Medications Acetaminophen (Tylenol 325mg Tab) 650 mg PO Q6 PRN PRN Reason: Fever >100.4 F Artificial Tears (Refresh Opth Soln) 0 ml OD Q6H PRN PRN Reason: Dry eyes Diphenhydramine HCl (Benadryl) 25 mg IVP Q8H PRN PRN Reason: Itching / Pruritus Last Admin: 06/11/18 19:33 Dose: 25 mg Enoxaparin Sodium (Lovenox) 40 mg SC DAILY STEVEN Last Admin: 06/12/18 10:51 Dose: 40 mg Hydromorphone HCl (Dilaudid) 0.5 mg IVP Q3H PRN PRN Reason: Pain, severe (8-10) Last Admin: 06/12/18 12:32 Dose: 0.5 mg BUPIVACAINE 0.125%/0.9% NACL (Bupivacaine-Ns 0.125% On-Q Department Director) 600 mls @ 4 mls/hr IJ ONCE ONE Stop: 06/17/18 19:59 Piperacillin Sod/Tazobactam Sod (Zosyn 3.375 Gm Iv Premix) 3.375 gm in 50 mls @ 100 mls/hr IVPB Q6H STEVEN; Protocol Last Admin: 06/12/18 12:30 Dose: 100 mls/hr Potassium Chloride 20 meq/ (Sodium Chloride) 1,010 mls @ 125 mls/hr IV .Q8H5M [facility] Last Admin: 06/12/18 12:31 Dose: 125 mls/hr Influenza Virus Vaccine (Fluzone Quad [id number]) 60 mcg IM .ONCE ONE Stop: 06/15/18 10:01 Levothyroxine Sodium (Synthroid) 175 mcg PO DAILY@0630 [facility] Last Admin: 06/12/18 10:51 Dose: 175 mcg Ondansetron HCl (Zofran Inj) 4 mg IVP Q6 PRN PRN Reason: Nausea/Vomiting - Labs Labs: 06/12/18 06:27 06/12/18 06:27 - Constitutional Appears: No Acute Distress - Head Exam Head Exam: ATRAUMATIC, NORMAL INSPECTION, NORMOCEPHALIC - Eye Exam Eye Exam: EOMI, Normal appearance, PERRL Pupil Exam: NORMAL ACCOMODATION, PERRL - ENT Exam ENT Exam: Mucous Membranes Moist, Normal Exam - Neck Exam Neck Exam: Full ROM, Normal Inspection. absent: Lymphadenopathy - Respiratory Exam Respiratory Exam: NORMAL BREATHING PATTERN - Cardiovascular Exam Cardiovascular Exam: REGULAR RHYTHM, +S1, +S2. absent: Murmur - GI/Abdominal Exam GI & Abdominal Exam: Soft, Tenderness. absent: Distended, Firm Additional comments: Incision C/D?I. Drain in place 50cc ss. - Extremities Exam Extremities Exam: Full ROM, Normal Capillary Refill, Normal Inspection. absent: Joint Swelling, Pedal Edema - Back Exam Back Exam: NORMAL INSPECTION - Neurological Exam Neurological Exam: Alert, Awake, CN II-XII Intact, Normal Gait, Oriented x3 - Psychiatric Exam Psychiatric exam: Normal Affect, Normal Mood - Skin Skin Exam: Dry, Intact, Normal Color, Warm Assessment and Plan - Assessment and Plan (Free Text) Assessment: POD 1 s/p robot colectomy monitor bowel function NPO IVF LVX ambulate WIll DW Dr. Robins <Landon Robins - Last Filed: 06/13/18 11:31> Objective - Vital Signs/Intake and Output Vital Signs (last 24 hours): Temp Pulse Resp BP Pulse Ox 97.9 F 83 20 106/69 96 06/13/18 07:00 06/13/18 07:00 06/13/18 07:00 06/13/18 07:00 06/13/18 07:00 Intake and Output: 06/13/18 06/13/18 06:59 18:59 Intake Total 1975 Output Total 85 Balance 1890 - Medications Medications: Current Medications Acetaminophen (Tylenol 325mg Tab) 650 mg PO Q6 PRN PRN Reason: Fever >100.4 F Artificial Tears (Refresh Opth Soln) 0 ml OD Q6H PRN PRN Reason: Dry eyes Diphenhydramine HCl (Benadryl) 25 mg IVP Q8H PRN PRN Reason: Itching / Pruritus Last Admin: 06/11/18 19:33 Dose: 25 mg Enoxaparin Sodium (Lovenox) 40 mg SC DAILY [facility] Last Admin: 06/13/18 10:54 Dose: 40 mg Hydromorphone HCl (Dilaudid) 0.5 mg IVP Q3H PRN PRN Reason: Pain, severe (8-10) Last Admin: 06/13/18 05:57 Dose: 0.5 mg BUPIVACAINE 0.125%/0.9% NACL (Bupivacaine-Ns 0.125% On-Q Department Director) 600 mls @ 4 mls/hr IJ ONCE ONE Stop: 06/17/18 19:59 Potassium Chloride 20 meq/ (Sodium Chloride) 1,010 mls @ 125 mls/hr IV .Q8H5M [facility] Last Admin: 06/13/18 08:22 Dose: 125 mls/hr Influenza Virus Vaccine (Fluzone Quad [id number]) 60 mcg IM .ONCE ONE Stop: 06/15/18 10:01 Levothyroxine Sodium (Synthroid) 175 mcg PO DAILY@0630 [facility] Last Admin: 06/13/18 06:08 Dose: 175 mcg Ondansetron HCl (Zofran Inj) 4 mg IVP Q6 PRN PRN Reason: Nausea/Vomiting - Labs Labs: 06/12/18 06:27 06/13/18 06:39 Attending/Attestation - Attestation I have personally seen and examined this patient.: Yes I have fully participated in the care of the patient.: Yes I have reviewed all pertinent clinical information, including history, physical exam and plan: Yes Notes (Text): Pt was seen and examined at bedside Agree with above note and assessment Pt is improving clinically DC Manley OOB to walk DVT Prophylaxis C.w IV antibiotics for intraabdominal contamination. Plan d.w pt in detail Risk and benefit explained in detail.
[2018-06-13] MEDS: HYDROmorphone 0.5 mg/0.5 ml ISec IVP PRN ×3 (01:36→12:01)
[2018-06-13] MEDS: Levothyroxine 175 MCG TAB PO SCH (06:08)
[2018-06-13 08:15] LABS: ALB/GLOB RATIO 1.1 (1.0-2.1); ALBUMIN 3.2 g/dL (3.5-5.0); ALT/SGPT 25 U/L (9-52); AST/SGOT 28 U/L (14-36); BLOOD UREA NITROGEN 4 mg/dL (7-17); CALCIUM 8.4 mg/dl (8.6-10.4); GFR NON-AFRICAN AMERICAN > 60
[2018-06-13] MEDS ORDERED: Pneumococcal 23-Valent Vaccine IM ONE (10:00)
[2018-06-13] MEDS ORDERED: Influenza Virus Vaccine 45 mcg/0.5 ml Syr (36 months - 7 yrs) IM ONE (10:00)
[2018-06-13] MEDS: Enoxaparin 40 mg Syringe SC SCH (10:54)
[2018-06-13] MEDS ORDERED: HYDROmorphone 0.5 mg/0.5 ml ISec IVP ONE (13:15)
[2018-06-13 13:59] LABS: HEMOGLOBIN 11.2 g/dL (11.0-16.0); MEAN CELL VOLUME 89.7 fL (81.0-99.0); MEAN CORPUSCULAR HEMOGLOBIN 29.8 pg (27.0-31.0); MEAN CORPUSCULAR HGB CONC 33.3 g/dL (33.0-37.0); MEAN PLATELET VOLUME 9.2 fL (7.2-11.7); RBC 3.76 Mil/uL (3.80-5.20); RED CELL DISTRIBUTION WIDTH 14.4 % (11.5-14.5); WHITE BLOOD COUNT 11.8 K/uL (4.8-10.8)
[2018-06-13] MEDS ORDERED: BUPIVACAINE 0.125%/0.9% NACL 600 ML IJ ONE (14:00)
--- NOTE | 2018-06-13 15:28 | CP.PCM.PN ---
<Chaitanya Khan Jak - Last Filed: 06/13/18 15:24> Subjective - Date & Time of Evaluation Date of Evaluation: 06/13/18 Time of Evaluation: 11:17 - Subjective Subjective: General Surgery: Dr Robins Pt S&E. POD#2 s/p robotic sub-total colectomy. Pain well controlled with OnQ. Has been OOB and ambulating. Not yet passing flatus or BM. Denies any N/V, SOB or chest pain. Complains of itchiness Objective - Vital Signs/Intake and Output Vital Signs (last 24 hours): Temp Pulse Resp BP Pulse Ox 97.9 F 83 20 106/69 96 06/13/18 07:00 06/13/18 07:00 06/13/18 07:00 06/13/18 07:00 06/13/18 07:00 Intake and Output: 06/13/18 06/13/18 06:59 18:59 Intake Total 1975 Output Total 85 Balance 1890 - Medications Medications: Current Medications Acetaminophen (Tylenol 325mg Tab) 650 mg PO Q6 PRN PRN Reason: Fever >100.4 F Artificial Tears (Refresh Opth Soln) 0 ml OD Q6H PRN PRN Reason: Dry eyes Diphenhydramine HCl (Benadryl) 25 mg IVP Q8H PRN PRN Reason: Itching / Pruritus Last Admin: 06/11/18 19:33 Dose: 25 mg Enoxaparin Sodium (Lovenox) 40 mg SC DAILY [facility] Last Admin: 06/13/18 10:54 Dose: 40 mg Hydromorphone HCl (Dilaudid) 1 mg IVP Q4H PRN PRN Reason: Pain, severe (8-10) Potassium Chloride 20 meq/ (Sodium Chloride) 1,010 mls @ 125 mls/hr IV .Q8H5M [facility] Last Admin: 06/13/18 14:05 Dose: Not Given BUPIVACAINE 0.125%/0.9% NACL (Bupivacaine-Ns 0.125% On-Q Developer [employer]) 600 mls @ 4 mls/hr IJ ONCE ONE Stop: 06/19/18 19:59 Influenza Virus Vaccine (Fluzone Quad [id number]) 60 mcg IM .ONCE ONE Stop: 06/15/18 10:01 Levothyroxine Sodium (Synthroid) 175 mcg PO DAILY@0630 [facility] Last Admin: 06/13/18 06:08 Dose: 175 mcg Ondansetron HCl (Zofran Inj) 4 mg IVP Q6 PRN PRN Reason: Nausea/Vomiting - Labs Labs: 06/13/18 13:47 06/13/18 06:39 - Constitutional Appears: Non-toxic, No Acute Distress - ENT Exam ENT Exam: Mucous Membranes Moist - Respiratory Exam Respiratory Exam: absent: Accessory Muscle Use, Respiratory Distress - Cardiovascular Exam Cardiovascular Exam: REGULAR RHYTHM. absent: Tachycardia - GI/Abdominal Exam GI & Abdominal Exam: Soft, Tenderness (post-op and appropriate). absent: Distended, Rigid, Hernia Additional comments: midline incision c/d/i, packing removed, drain w/ serosanguinous output - Extremities Exam Extremities Exam: absent: Pedal Edema - Neurological Exam Neurological Exam: Alert, Awake, Oriented x3 - Psychiatric Exam Psychiatric exam: Normal Affect, Normal Mood - Skin Skin Exam: Normal Color, Warm Assessment and Plan - Assessment and Plan (Free Text) Assessment: 33F POD#2 s/p robotic sub-total colectomy Plan: cont NPO will refil OnQ start colace PO OOB and ambulate d/w Dr Shimon Khan, PGY4 <Landon Robins B - Last Filed: 06/16/18 18:53> Objective - Vital Signs/Intake and Output Vital Signs (last 24 hours): Temp Pulse Resp BP Pulse Ox 98.6 F 86 20 115/77 98 06/16/18 16:00 06/16/18 16:00 06/16/18 16:00 06/16/18 16:00 06/16/18 16:00 Intake and Output: 06/16/18 06/16/18 06:59 18:59 Intake Total 370 350 Output Total 100 40 Balance 270 310 - Medications Medications: Current Medications Acetaminophen (Tylenol 325mg Tab) 650 mg PO Q6 PRN PRN Reason: Fever >100.4 F Artificial Tears (Refresh Opth Soln) 0 ml OD Q6H PRN PRN Reason: Dry eyes Diphenhydramine HCl (Benadryl) 50 mg PO Q8 PRN PRN Reason: Itching / Pruritus Last Admin: 06/15/18 04:01 Dose: 50 mg Docusate Sodium (Colace) 100 mg PO TID [facility] Last Admin: 06/16/18 18:07 Dose: 100 mg Enoxaparin Sodium (Lovenox) 40 mg SC DAILY [facility] Last Admin: 06/16/18 09:41 Dose: 40 mg Famotidine (Pepcid) 20 mg PO DAILY [facility] Hydromorphone HCl (Dilaudid) 0.5 mg IVP Q3H PRN PRN Reason: breakthrough pain Last Admin: 06/16/18 16:11 Dose: 0.5 mg BUPIVACAINE 0.125%/0.9% NACL (Bupivacaine-Ns 0.125% On-Q Developer [employer]) 600 mls @ 4 mls/hr IJ ONCE ONE Stop: 06/19/18 19:59 Levothyroxine Sodium (Synthroid) 175 mcg PO DAILY@0630 [facility] Last Admin: 06/16/18 05:34 Dose: 175 mcg Ondansetron HCl (Zofran Inj) 4 mg IVP Q6 PRN PRN Reason: Nausea/Vomiting Tramadol HCl (Ultram) 50 mg PO Q6H PRN PRN Reason: Pain, severe (8-10) Last Admin: 06/16/18 14:40 Dose: 50 mg - Labs Labs: 06/15/18 06:31 06/16/18 06:41 Attending/Attestation - Attestation I have personally seen and examined this patient.: Yes I have fully participated in the care of the patient.: Yes I have reviewed all pertinent clinical information, including history, physical exam and plan: Yes Notes (Text): Pt was seen and examined at bedside Agree with above note and assessment Pt is improving clinically DVT prophylaxis OOB to walk c.w current mx Plan d.w pt in detail Risk and benefit explained in detail.
[2018-06-13] MEDS: Piperacillin/Tazobact 3.375 GM in Sodium Chloride 0.9% 100 ML IVPB SCH ×2 (18:00→23:59)
[2018-06-13] MEDS ORDERED: Piperacill/Tazo 3.375gm in Dex 3.375 GM/50 ML BAG IVPB SCH (18:00)
[2018-06-13] MEDS: HYDROmorphone 1 mg/ml ISec IVP PRN (19:02)
[2018-06-14] MEDS: HYDROmorphone 1 mg/ml ISec IVP PRN ×2 (01:22→06:51)
[2018-06-14] MEDS: Piperacillin/Tazobact 3.375 GM in Sodium Chloride 0.9% 100 ML IVPB SCH ×3 (05:31→18:19)
[2018-06-14] MEDS: Levothyroxine 175 MCG TAB PO SCH ×2 (06:13→07:44)
[2018-06-14] MEDS ORDERED: DiphenhydrAMINE 50 mg/ml Inj IVP PRN (07:22)
[2018-06-14 07:39] LABS: MEAN CELL VOLUME 88.9 fL (81.0-99.0); MEAN CORPUSCULAR HEMOGLOBIN 30.9 pg (27.0-31.0); MEAN CORPUSCULAR HGB CONC 34.7 g/dL (33.0-37.0); MEAN PLATELET VOLUME 8.6 fL (7.2-11.7); RBC 3.22 Mil/uL (3.80-5.20); RED CELL DISTRIBUTION WIDTH 14.4 % (11.5-14.5); WHITE BLOOD COUNT 8.4 K/uL (4.8-10.8)
--- NOTE | 2018-06-14 09:19 | CP.PCM.PN ---
<Chaitanya Khan Jak - Last Filed: 06/14/18 09:16> Subjective - Date & Time of Evaluation Date of Evaluation: 06/14/18 Time of Evaluation: 06:45 - Subjective Subjective: General Surgery: Dr Robins Pt S&EWu ANDREW. Pain controlled. Denies N/V. Passing flatus but no BM. Only complain is itchy rash on posterior surfaces which have been in contact with bed sheets. Nurse was asked to please administer benadryl and change linens. Objective - Vital Signs/Intake and Output Vital Signs (last 24 hours): Temp Pulse Resp BP Pulse Ox 98.6 F 69 20 115/78 99 06/14/18 00:00 06/14/18 00:00 06/14/18 00:00 06/14/18 00:00 06/14/18 00:00 Intake and Output: 06/14/18 06/14/18 06:59 18:59 Intake Total 2700 Output Total 100 Balance 2600 - Medications Medications: Current Medications Acetaminophen (Tylenol 325mg Tab) 650 mg PO Q6 PRN PRN Reason: Fever >100.4 F Artificial Tears (Refresh Opth Soln) 0 ml OD Q6H PRN PRN Reason: Dry eyes Diphenhydramine HCl (Benadryl) 50 mg IVP Q8H PRN PRN Reason: Itching / Pruritus Docusate Sodium (Colace) 100 mg PO TID [facility] Enoxaparin Sodium (Lovenox) 40 mg SC DAILY [facility] Last Admin: 06/13/18 10:54 Dose: 40 mg Hydromorphone HCl (Dilaudid) 0.5 mg IVP Q3H PRN PRN Reason: Pain, severe (8-10) BUPIVACAINE 0.125%/0.9% NACL (Bupivacaine-Ns 0.125% On-Q [facility]) 600 mls @ 4 mls/hr IJ ONCE ONE Stop: 06/19/18 19:59 Piperacillin Sod/Tazobactam (Sod 3.375 gm/ Sodium Chloride) 100 mls @ 100 mls/hr IVPB Q6H [facility]; Protocol Last Admin: 06/14/18 05:31 Dose: 100 mls/hr Potassium Chloride 20 meq/ (Sodium Chloride) 1,010 mls @ 50 mls/hr IV .[id number] [facility] Influenza Virus Vaccine (Fluzone Quad [id number]) 60 mcg IM .ONCE ONE Stop: 06/15/18 10:01 Levothyroxine Sodium (Synthroid) 175 mcg PO DAILY@0630 [facility] Last Admin: 06/14/18 07:44 Dose: 175 mcg Ondansetron HCl (Zofran Inj) 4 mg IVP Q6 PRN PRN Reason: Nausea/Vomiting Tramadol HCl (Ultram) 50 mg PO TID PRN PRN Reason: Pain, Mild (1-3) - Labs Labs: 06/14/18 07:28 06/13/18 06:39 - Constitutional Appears: Non-toxic, No Acute Distress - ENT Exam ENT Exam: Mucous Membranes Moist - Respiratory Exam Respiratory Exam: absent: Accessory Muscle Use, Respiratory Distress - Cardiovascular Exam Cardiovascular Exam: REGULAR RHYTHM - GI/Abdominal Exam GI & Abdominal Exam: Soft, Tenderness (post-op and appropriate). absent: Distended, Firm, Guarding Additional comments: midline incision c/d/i drain 160 cc serosanguinous - Neurological Exam Neurological Exam: Alert, Awake, Oriented x3 - Psychiatric Exam Psychiatric exam: Normal Affect, Normal Mood - Skin Skin Exam: Normal Color, Warm Assessment and Plan - Assessment and Plan (Free Text) Assessment: 33F POD#3 s/p subtotal colectomy Plan: benadryl for atopic dermatitis CLD dec IVF PO pain medications cont Colace ambulate d/w Dr Shimon Khan, PGY4 <Landon Robins B - Last Filed: 06/16/18 18:52> Objective - Vital Signs/Intake and Output Vital Signs (last 24 hours): Temp Pulse Resp BP Pulse Ox 98.6 F 86 20 115/77 98 06/16/18 16:00 06/16/18 16:00 06/16/18 16:00 06/16/18 16:00 06/16/18 16:00 Intake and Output: 06/16/18 06/16/18 06:59 18:59 Intake Total 370 350 Output Total 100 40 Balance 270 310 - Medications Medications: Current Medications Acetaminophen (Tylenol 325mg Tab) 650 mg PO Q6 PRN PRN Reason: Fever >100.4 F Artificial Tears (Refresh Opth Soln) 0 ml OD Q6H PRN PRN Reason: Dry eyes Diphenhydramine HCl (Benadryl) 50 mg PO Q8 PRN PRN Reason: Itching / Pruritus Last Admin: 06/15/18 04:01 Dose: 50 mg Docusate Sodium (Colace) 100 mg PO TID [facility] Last Admin: 06/16/18 18:07 Dose: 100 mg Enoxaparin Sodium (Lovenox) 40 mg SC DAILY [facility] Last Admin: 06/16/18 09:41 Dose: 40 mg Famotidine (Pepcid) 20 mg PO DAILY [facility] Hydromorphone HCl (Dilaudid) 0.5 mg IVP Q3H PRN PRN Reason: breakthrough pain Last Admin: 06/16/18 16:11 Dose: 0.5 mg BUPIVACAINE 0.125%/0.9% NACL (Bupivacaine-Ns 0.125% On-Q [facility]) 600 mls @ 4 mls/hr IJ ONCE ONE Stop: 06/19/18 19:59 Levothyroxine Sodium (Synthroid) 175 mcg PO DAILY@0630 [facility] Last Admin: 06/16/18 05:34 Dose: 175 mcg Ondansetron HCl (Zofran Inj) 4 mg IVP Q6 PRN PRN Reason: Nausea/Vomiting Tramadol HCl (Ultram) 50 mg PO Q6H PRN PRN Reason: Pain, severe (8-10) Last Admin: 06/16/18 14:40 Dose: 50 mg - Labs Labs: 06/15/18 06:31 06/16/18 06:41 Attending/Attestation - Attestation I have personally seen and examined this patient.: Yes I have fully participated in the care of the patient.: Yes I have reviewed all pertinent clinical information, including history, physical exam and plan: Yes Notes (Text): Pt was seen and examined at bedside Agree with above note and assessment Pain is well controlled Not passing gas or BM DVT prophylaxis OOB to walk Plan d.w pt in detail
[2018-06-14] MEDS: Enoxaparin 40 mg Syringe SC SCH (09:56)
[2018-06-14] MEDS: HYDROmorphone 0.5 mg/0.5 ml ISec IVP PRN ×3 (14:25→23:23)
--- NOTE | 2018-06-14 14:46 | CP.PCM.PCO ---
Physician Communication Note - Physician Communication Note Physician Communication Note: please give PO pain medication before giving dilaudid
[2018-06-15] MEDS: HYDROmorphone 0.5 mg/0.5 ml ISec IVP PRN ×3 (03:59→20:12)
[2018-06-15] MEDS: Levothyroxine 175 MCG TAB PO SCH (06:20)
[2018-06-15 06:48] LABS: HEMOGLOBIN 10.7 g/dL (11.0-16.0); MEAN CELL VOLUME 88.4 fL (81.0-99.0); MEAN CORPUSCULAR HEMOGLOBIN 30.2 pg (27.0-31.0); MEAN CORPUSCULAR HGB CONC 34.1 g/dL (33.0-37.0); MEAN PLATELET VOLUME 8.7 fL (7.2-11.7); RBC 3.54 Mil/uL (3.80-5.20); WHITE BLOOD COUNT 5.6 K/uL (4.8-10.8)
[2018-06-15 07:47] LABS: BLOOD UREA NITROGEN 3 mg/dL (7-17); CALCIUM 8.5 mg/dl (8.6-10.4); GFR NON-AFRICAN AMERICAN > 60
[2018-06-15] MEDS ORDERED: Potassium Chloride 20 mEq ER Tab PO ONE (08:15)
--- NOTE | 2018-06-15 08:15 | RAD ---
Date of service: 06/14/2018 HISTORY: chest pain/abdominal pain COMPARISON: 06/08/2018. FINDINGS: LUNGS: The lungs are well inflated and clear. PLEURA: No significant pleural effusion identified, no pneumothorax apparent. CARDIOVASCULAR: Normal. OSSEOUS STRUCTURES: No significant abnormalities. VISUALIZED UPPER ABDOMEN: Normal. OTHER FINDINGS: There is free intraperitoneal air under the hemidiaphragms in keeping with postoperative changes. IMPRESSION: No acute findings. Pneumoperitoneum, likely related to recent surgery.
--- NOTE | 2018-06-15 09:38 | RAD ---
Date of service: 06/14/2018 HISTORY: new onset abdominal pain COMPARISON: No prior. FINDINGS: BOWEL: Free intraperitoneal air seen under the diaphragmatic surfaces consistent with recent surgery. Chain sutures are seen in the right lateral mid to lower abdomen. Findings suggest mild postoperative ileus. BONES: Normal. OTHER FINDINGS: Small amount of free intraperitoneal air seen along right lateral lower hemithorax and right lateral flank. IMPRESSION: Free intraperitoneal air is present felt to be related to recent surgery. Findings also suggest mild postoperative ileus. Findings discussed with 3 T nurse Lasso at approximately 9:15 a.m. with written down and read back verification.
[2018-06-15] MEDS ORDERED: Influenza Vaccine 60 MCG/0.5 ML SYR (3 yr & up) IM ONE (10:00)
[2018-06-15] MEDS: Enoxaparin 40 mg Syringe SC SCH (10:43)
--- NOTE | 2018-06-15 11:12 | CP.PCM.PN ---
<Marcella Hopper - Last Filed: 06/15/18 17:04> Subjective - Date & Time of Evaluation Date of Evaluation: 06/15/18 Time of Evaluation: 13:50 - Subjective Subjective: General Surgery progress note for Dr. Robins Patient seen and examined at bedside. Patient states she still has some pain, and did not have a bowel movement, but she tolerated her CLD. Patient had a AXR and CXR yesterday which showed possible small bowel ileus Objective - Vital Signs/Intake and Output Vital Signs (last 24 hours): Temp Pulse Resp BP Pulse Ox 99.4 F 65 20 100/65 97 06/15/18 07:42 06/15/18 07:42 06/15/18 07:42 06/15/18 07:42 06/15/18 07:42 Intake and Output: 06/15/18 06/15/18 06:59 18:59 Intake Total 540 Output Total 50 Balance 490 - Medications Medications: Current Medications Acetaminophen (Tylenol 325mg Tab) 650 mg PO Q6 PRN PRN Reason: Fever >100.4 F Artificial Tears (Refresh Opth Soln) 0 ml OD Q6H PRN PRN Reason: Dry eyes Diphenhydramine HCl (Benadryl) 50 mg PO Q8 PRN PRN Reason: Itching / Pruritus Last Admin: 06/15/18 04:01 Dose: 50 mg Docusate Sodium (Colace) 100 mg PO TID [facility] Last Admin: 06/15/18 10:47 Dose: 100 mg Enoxaparin Sodium (Lovenox) 40 mg SC DAILY [facility] Last Admin: 06/15/18 10:43 Dose: Not Given Hydromorphone HCl (Dilaudid) 0.5 mg IVP Q3H PRN PRN Reason: Pain, severe (8-10) Last Admin: 06/15/18 03:59 Dose: 0.5 mg BUPIVACAINE 0.125%/0.9% NACL (Bupivacaine-Ns 0.125% On-Q Ordnance Officer) 600 mls @ 4 mls/hr IJ ONCE ONE Stop: 06/19/18 19:59 Levothyroxine Sodium (Synthroid) 175 mcg PO DAILY@0630 [facility] Last Admin: 06/15/18 06:20 Dose: 175 mcg Ondansetron HCl (Zofran Inj) 4 mg IVP Q6 PRN PRN Reason: Nausea/Vomiting Tramadol HCl (Ultram) 50 mg PO TID PRN PRN Reason: Pain, Mild (1-3) Last Admin: 06/14/18 18:21 Dose: 50 mg - Labs Labs: 06/15/18 06:31 06/15/18 06:31 - Constitutional Appears: Well, Non-toxic, No Acute Distress - Head Exam Head Exam: ATRAUMATIC, NORMOCEPHALIC - Eye Exam Eye Exam: Normal appearance. absent: Conjunctival injection, Scleral icterus - ENT Exam ENT Exam: Mucous Membranes Moist, Normal Oropharynx - Respiratory Exam Respiratory Exam: NORMAL BREATHING PATTERN. absent: Accessory Muscle Use, Respiratory Distress - Cardiovascular Exam Cardiovascular Exam: RRR - GI/Abdominal Exam GI & Abdominal Exam: Soft, Tenderness (sharmin-incisional and suprapubic tenderness). absent: Distended Additional comments: incision bandages with minimal saturation, dry and intact, on-q present - Extremities Exam Extremities Exam: absent: Calf Tenderness, Pedal Edema, Tenderness - Neurological Exam Neurological Exam: Alert, Awake, Oriented x3 - Psychiatric Exam Psychiatric exam: Normal Affect, Normal Mood - Skin Skin Exam: Dry, Normal Color, Warm Assessment and Plan - Assessment and Plan (Free Text) Assessment: 33F with chronic constipation, POD#4 s/p robotic subtotal colectomy Plan: Continue CLD Dulcolax suppository in addition to colace Encourage ambulation Replete electrolytes as needed PRN pain medication Continue home medications Will remove on-q when empties today Discussed with Dr. Robins, who agrees with above Marcella Hopper PGY2 <Landon Robins - Last Filed: 06/16/18 18:50> Objective - Vital Signs/Intake and Output Vital Signs (last 24 hours): Temp Pulse Resp BP Pulse Ox 98.6 F 86 20 115/77 98 06/16/18 16:00 06/16/18 16:00 06/16/18 16:00 06/16/18 16:00 06/16/18 16:00 Intake and Output: 06/16/18 06/16/18 06:59 18:59 Intake Total 370 350 Output Total 100 40 Balance 270 310 - Medications Medications: Current Medications Acetaminophen (Tylenol 325mg Tab) 650 mg PO Q6 PRN PRN Reason: Fever >100.4 F Artificial Tears (Refresh Opth Soln) 0 ml OD Q6H PRN PRN Reason: Dry eyes Diphenhydramine HCl (Benadryl) 50 mg PO Q8 PRN PRN Reason: Itching / Pruritus Last Admin: 06/15/18 04:01 Dose: 50 mg Docusate Sodium (Colace) 100 mg PO TID [facility] Last Admin: 06/16/18 18:07 Dose: 100 mg Enoxaparin Sodium (Lovenox) 40 mg SC DAILY [facility] Last Admin: 06/16/18 09:41 Dose: 40 mg Famotidine (Pepcid) 20 mg PO DAILY [facility] Hydromorphone HCl (Dilaudid) 0.5 mg IVP Q3H PRN PRN Reason: breakthrough pain Last Admin: 06/16/18 16:11 Dose: 0.5 mg BUPIVACAINE 0.125%/0.9% NACL (Bupivacaine-Ns 0.125% On-Q Ordnance Officer) 600 mls @ 4 mls/hr IJ ONCE ONE Stop: 06/19/18 19:59 Levothyroxine Sodium (Synthroid) 175 mcg PO DAILY@0630 [facility] Last Admin: 06/16/18 05:34 Dose: 175 mcg Ondansetron HCl (Zofran Inj) 4 mg IVP Q6 PRN PRN Reason: Nausea/Vomiting Tramadol HCl (Ultram) 50 mg PO Q6H PRN PRN Reason: Pain, severe (8-10) Last Admin: 06/16/18 14:40 Dose: 50 mg - Labs Labs: 06/15/18 06:31 06/16/18 06:41 Attending/Attestation - Attestation I have personally seen and examined this patient.: Yes I have fully participated in the care of the patient.: Yes I have reviewed all pertinent clinical information, including history, physical exam and plan: Yes Notes (Text): Pt was seen and examined at bedside Agree with above note and assessment Pt is improving clinically Tolerating liquid diet Pain is controlled OOB to walk Plan d.w pt in detail
[2018-06-16] MEDS: HYDROmorphone 0.5 mg/0.5 ml ISec IVP PRN ×5 (03:05→23:06)
[2018-06-16] MEDS: Levothyroxine 175 MCG TAB PO SCH (05:34)
[2018-06-16 07:27] LABS: BLOOD UREA NITROGEN 7 mg/dL (7-17); CALCIUM 8.8 mg/dl (8.6-10.4); GFR NON-AFRICAN AMERICAN > 60
[2018-06-16] MEDS ORDERED: Magnesium Oxide 400 mg Tab UD PO ONE ×2 (08:48→10:30)
--- NOTE | 2018-06-16 08:53 | CP.PCM.PN ---
<Kevyn Dhillon - Last Filed: 06/16/18 08:49> Subjective - Date & Time of Evaluation Date of Evaluation: 06/16/18 Time of Evaluation: 07:30 - Subjective Subjective: General Surgery Pt seen and examined. Still has some pain, and did not have a bowel movement or flatus recently. Tolerated CLD but only small amount. Ambulating some in hallway. Wearing abd binder for comfort. Objective - Vital Signs/Intake and Output Vital Signs (last 24 hours): Temp Pulse Resp BP Pulse Ox 98.9 F 71 20 105/59 L 98 06/16/18 00:00 06/16/18 00:00 06/16/18 00:00 06/16/18 00:00 06/16/18 00:00 Intake and Output: 06/16/18 06/16/18 06:59 18:59 Intake Total 370 Output Total 100 Balance 270 - Medications Medications: Current Medications Acetaminophen (Tylenol 325mg Tab) 650 mg PO Q6 PRN PRN Reason: Fever >100.4 F Artificial Tears (Refresh Opth Soln) 0 ml OD Q6H PRN PRN Reason: Dry eyes Diphenhydramine HCl (Benadryl) 50 mg PO Q8 PRN PRN Reason: Itching / Pruritus Last Admin: 06/15/18 04:01 Dose: 50 mg Docusate Sodium (Colace) 100 mg PO TID [facility] Last Admin: 06/15/18 17:42 Dose: 100 mg Enoxaparin Sodium (Lovenox) 40 mg SC DAILY [facility] Last Admin: 06/15/18 10:43 Dose: Not Given Famotidine (Pepcid) 20 mg PO DAILY [facility] Hydromorphone HCl (Dilaudid) 0.5 mg IVP Q3H PRN PRN Reason: breakthrough pain Last Admin: 06/16/18 03:05 Dose: 0.5 mg BUPIVACAINE 0.125%/0.9% NACL (Bupivacaine-Ns 0.125% On-Q Handyman) 600 mls @ 4 mls/hr IJ ONCE ONE Stop: 06/19/18 19:59 Levothyroxine Sodium (Synthroid) 175 mcg PO DAILY@0630 [facility] Last Admin: 06/16/18 05:34 Dose: 175 mcg Magnesium Oxide (Mag-Ox) 400 mg PO ONCE ONE Stop: 06/16/18 08:49 Ondansetron HCl (Zofran Inj) 4 mg IVP Q6 PRN PRN Reason: Nausea/Vomiting Tramadol HCl (Ultram) 50 mg PO Q6H PRN PRN Reason: Pain, severe (8-10) - Labs Labs: 06/15/18 06:31 06/16/18 06:41 - Constitutional Appears: Non-toxic, No Acute Distress - Head Exam Head Exam: ATRAUMATIC, NORMOCEPHALIC - Eye Exam Eye Exam: EOMI. absent: Scleral icterus - Respiratory Exam Respiratory Exam: NORMAL BREATHING PATTERN. absent: Respiratory Distress - Cardiovascular Exam Cardiovascular Exam: RRR, +S1, +S2 - GI/Abdominal Exam GI & Abdominal Exam: Soft. absent: Distended, Firm, Guarding, Rigid, Tenderness (mild around incisions) - Neurological Exam Neurological Exam: Alert, Awake, Oriented x3 - Skin Skin Exam: Dry, Warm Assessment and Plan - Assessment and Plan (Free Text) Assessment: 33F POD#5 s/p robotic subtotal colectomy Plan: Continue CLD Encourage ambulation Replete electrolytes as needed PRN pain medication Continue home medications D/W Dr. Shimon Dhillon PGY4 <Landon Robins - Last Filed: 06/16/18 18:49> Objective - Vital Signs/Intake and Output Vital Signs (last 24 hours): Temp Pulse Resp BP Pulse Ox 98.6 F 86 20 115/77 98 06/16/18 16:00 06/16/18 16:00 06/16/18 16:00 06/16/18 16:00 06/16/18 16:00 Intake and Output: 06/16/18 06/16/18 06:59 18:59 Intake Total 370 350 Output Total 100 40 Balance 270 310 - Medications Medications: Current Medications Acetaminophen (Tylenol 325mg Tab) 650 mg PO Q6 PRN PRN Reason: Fever >100.4 F Artificial Tears (Refresh Opth Soln) 0 ml OD Q6H PRN PRN Reason: Dry eyes Diphenhydramine HCl (Benadryl) 50 mg PO Q8 PRN PRN Reason: Itching / Pruritus Last Admin: 06/15/18 04:01 Dose: 50 mg Docusate Sodium (Colace) 100 mg PO TID [facility] Last Admin: 06/16/18 18:07 Dose: 100 mg Enoxaparin Sodium (Lovenox) 40 mg SC DAILY [facility] Last Admin: 06/16/18 09:41 Dose: 40 mg Famotidine (Pepcid) 20 mg PO DAILY [facility] Hydromorphone HCl (Dilaudid) 0.5 mg IVP Q3H PRN PRN Reason: breakthrough pain Last Admin: 06/16/18 16:11 Dose: 0.5 mg BUPIVACAINE 0.125%/0.9% NACL (Bupivacaine-Ns 0.125% On-Q Handyman) 600 mls @ 4 mls/hr IJ ONCE ONE Stop: 06/19/18 19:59 Levothyroxine Sodium (Synthroid) 175 mcg PO DAILY@0630 [facility] Last Admin: 06/16/18 05:34 Dose: 175 mcg Ondansetron HCl (Zofran Inj) 4 mg IVP Q6 PRN PRN Reason: Nausea/Vomiting Tramadol HCl (Ultram) 50 mg PO Q6H PRN PRN Reason: Pain, severe (8-10) Last Admin: 06/16/18 14:40 Dose: 50 mg - Labs Labs: 06/15/18 06:31 06/16/18 06:41 Attending/Attestation - Attestation I have fully participated in the care of the patient.: Yes I have reviewed all pertinent clinical information, including history, physical exam and plan: Yes Notes (Text): Pt is improving clinically c.w liquid diet OOB to walk Plan d.w pt in detail
[2018-06-16] MEDS: Enoxaparin 40 mg Syringe SC SCH (09:41)
[2018-06-16] MEDS ORDERED: Potassium Chloride 20 mEq ER Tab PO ONE (10:41)
[2018-06-17] MEDS: HYDROmorphone 0.5 mg/0.5 ml ISec IVP PRN ×5 (02:50→22:51)
[2018-06-17] MEDS: Levothyroxine 175 MCG TAB PO SCH (05:36)
[2018-06-17 07:39] LABS: HEMOGLOBIN 12.5 g/dL (11.0-16.0); MEAN CELL VOLUME 87.8 fL (81.0-99.0); MEAN CORPUSCULAR HEMOGLOBIN 30.5 pg (27.0-31.0); MEAN CORPUSCULAR HGB CONC 34.7 g/dL (33.0-37.0); MEAN PLATELET VOLUME 8.3 fL (7.2-11.7); RBC 4.12 Mil/uL (3.80-5.20); RED CELL DISTRIBUTION WIDTH 14.4 % (11.5-14.5)
[2018-06-17 07:41] LABS: WHITE BLOOD COUNT 11.6 K/uL (4.8-10.8)
[2018-06-17 08:21] LABS: BLOOD UREA NITROGEN 8 mg/dL (7-17); CALCIUM 8.9 mg/dl (8.6-10.4); GFR NON-AFRICAN AMERICAN > 60
[2018-06-17] MEDS: Enoxaparin 40 mg Syringe SC SCH (09:19)
--- NOTE | 2018-06-17 11:56 | CP.PCM.PN ---
<Naima Hameed - Last Filed: 06/17/18 11:53> Subjective - Date & Time of Evaluation Date of Evaluation: 06/17/18 Time of Evaluation: 11:53 - Subjective Subjective: Surgery PT seen and examined. Reports an episode of vomiting overnight. Denies fever, diarrhea, BM, Flatus. AMbulates. Tolerating little bit of diet. Drain in place. Objective - Vital Signs/Intake and Output Vital Signs (last 24 hours): Temp Pulse Resp BP Pulse Ox 98.6 F 100 H 20 117/82 97 06/17/18 08:00 06/17/18 08:00 06/17/18 08:00 06/17/18 08:00 06/17/18 08:00 Intake and Output: 06/17/18 06/17/18 06:59 18:59 Intake Total 370 Output Total 100 Balance 270 - Medications Medications: Current Medications Acetaminophen (Tylenol 325mg Tab) 650 mg PO Q6 PRN PRN Reason: Fever >100.4 F Artificial Tears (Refresh Opth Soln) 0 ml OD Q6H PRN PRN Reason: Dry eyes Diphenhydramine HCl (Benadryl) 50 mg PO Q8 PRN PRN Reason: Itching / Pruritus Last Admin: 06/17/18 02:56 Dose: 50 mg Docusate Sodium (Colace) 100 mg PO TID [facility] Last Admin: 06/17/18 09:19 Dose: 100 mg Enoxaparin Sodium (Lovenox) 40 mg SC DAILY [facility] Last Admin: 06/17/18 09:19 Dose: 40 mg Famotidine (Pepcid) 20 mg PO DAILY [facility] Last Admin: 06/17/18 09:23 Dose: 20 mg Hydromorphone HCl (Dilaudid) 0.5 mg IVP Q3H PRN PRN Reason: breakthrough pain Last Admin: 06/17/18 09:20 Dose: 0.5 mg BUPIVACAINE 0.125%/0.9% NACL (Bupivacaine-Ns 0.125% On-Q Rn Advanced) 600 mls @ 4 mls/hr IJ ONCE ONE Stop: 06/19/18 19:59 Levothyroxine Sodium (Synthroid) 175 mcg PO DAILY@0630 [facility] Last Admin: 06/17/18 05:36 Dose: 175 mcg Ondansetron HCl (Zofran Inj) 4 mg IVP Q6 PRN PRN Reason: Nausea/Vomiting Last Admin: 06/17/18 05:42 Dose: 4 mg Polyethylene Glycol (Miralax) 17 gm PO ONCE ONE Stop: 06/17/18 12:01 Potassium Chloride (K-Dur 20 Meq Er Tab) 20 meq PO DAILY [facility] Tramadol HCl (Ultram) 50 mg PO Q6H PRN PRN Reason: Pain, severe (8-10) Last Admin: 06/17/18 05:36 Dose: 50 mg - Labs Labs: 06/17/18 07:24 06/17/18 07:24 - Constitutional Appears: No Acute Distress - Head Exam Head Exam: ATRAUMATIC, NORMAL INSPECTION, NORMOCEPHALIC - Eye Exam Eye Exam: EOMI, Normal appearance, PERRL Pupil Exam: NORMAL ACCOMODATION, PERRL - ENT Exam ENT Exam: Mucous Membranes Moist, Normal Exam - Neck Exam Neck Exam: Full ROM, Normal Inspection. absent: Lymphadenopathy - Respiratory Exam Respiratory Exam: NORMAL BREATHING PATTERN - Cardiovascular Exam Cardiovascular Exam: REGULAR RHYTHM, +S1, +S2. absent: Murmur - GI/Abdominal Exam GI & Abdominal Exam: Distended, Soft, Tenderness, Normal Bowel Sounds. absent: Mass, Organomegaly, Pulsatile Mass, Rebound - Extremities Exam Extremities Exam: Full ROM, Normal Inspection - Back Exam Back Exam: NORMAL INSPECTION - Neurological Exam Neurological Exam: Alert, Awake, CN II-XII Intact, Normal Gait, Oriented x3 - Psychiatric Exam Psychiatric exam: Normal Affect, Normal Mood - Skin Skin Exam: Dry, Intact, Normal Color, Warm Assessment and Plan - Assessment and Plan (Free Text) Assessment: POD 6 s/p robotic colectomy Drain 170cc ss /24hrs edi: Continue CLD MOnitor drain output. Encourage ambulation Replete electrolytes as needed PRN pain medication Continue home medications Will DW Dr. Robins <Landon Robins - Last Filed: 06/22/18 16:36> Objective - Vital Signs/Intake and Output Vital Signs (last 24 hours): Temp Pulse Resp BP Pulse Ox 98.6 F 91 H 20 101/71 96 06/22/18 08:00 06/22/18 08:00 06/22/18 08:00 06/22/18 08:00 06/22/18 08:00 Intake and Output: 06/22/18 06/22/18 06:59 18:59 Intake Total 800 1600 Balance 800 1600 - Medications Medications: Current Medications Acetaminophen (Tylenol 325mg Tab) 650 mg PO Q6 PRN PRN Reason: Fever >100.4 F Artificial Tears (Refresh Opth Soln) 0 ml OD Q6H PRN PRN Reason: Dry eyes Diphenhydramine HCl (Benadryl) 50 mg PO Q8 PRN PRN Reason: Itching / Pruritus Last Admin: 06/17/18 02:56 Dose: 50 mg Enoxaparin Sodium (Lovenox) 60 mg SC Q12 [facility] Last Admin: 06/22/18 09:19 Dose: Not Given Potassium Chloride/Dextrose/Sod Cl (Potassium Chl 20 Meq In D5-1/2ns) 1,000 mls @ 100 mls/hr IV .Q10H [facility] Last Admin: 06/22/18 10:03 Dose: 100 mls/hr Multivitamins/Vitamin C 10 ml/Chromium/Copper/Manganese/Zinc 1 ml/ Amino Acids 1,011 mls @ 85 mls/hr IV .[id number] ONE Stop: 06/23/18 05:53 Amino Acids (Clinimix 4.25/5 % "E" (1000 Ml)) 1,000 mls @ 85 mls/hr IV .[id number] ONE Stop: 06/23/18 17:45 Fat Emulsion Intravenous (Intralipid 20%) 250 mls @ 42 mls/hr IV QOD@1800 [facility] Stop: 06/28/18 18:01 Isosorbide Dinitrate (Isordil) 5 mg PO BID [facility] Ketorolac Tromethamine (Toradol) 30 mg IVP Q6 [facility] Stop: 06/24/18 00:01 Last Admin: 06/22/18 12:50 Dose: Not Given Levothyroxine Sodium (Synthroid) 175 mcg PO DAILY@0630 [facility] Last Admin: 06/22/18 05:50 Dose: 175 mcg Lidocaine (Lidoderm) 1 ea TD DAILY [facility] Last Admin: 06/22/18 10:02 Dose: 1 ea Metoclopramide HCl (Reglan) 10 mg IVP Q6H [facility] Last Admin: 06/22/18 16:18 Dose: 10 mg Ondansetron HCl (Zofran Inj) 4 mg IVP Q6 PRN PRN Reason: Nausea/Vomiting Last Admin: 06/22/18 00:32 Dose: 4 mg Pantoprazole Sodium (Protonix Inj) 40 mg IVP Q12H [facility] Last Admin: 06/22/18 05:18 Dose: 40 mg Scopolamine (Transderm-Scop) 1 patch TD Q3D [facility] Last Admin: 06/21/18 09:53 Dose: 1 patch Tramadol HCl (Ultram) 50 mg PO Q6H PRN PRN Reason: Pain, severe (8-10) Last Admin: 06/19/18 10:11 Dose: 50 mg Zolpidem Tartrate (Ambien) 5 mg PO HS PRN PRN Reason: Insomnia Last Admin: 06/20/18 21:25 Dose: 5 mg - Labs Labs: 06/21/18 09:57 06/21/18 09:57 Attending/Attestation - Attestation I have fully participated in the care of the patient.: Yes I have reviewed all pertinent clinical information, including history, physical exam and plan: Yes Notes (Text): Pt with post operative ileus repeat CT scan in am C.w clear liquid diet Local wound care OOB to walk Plan d.w pt in detail
[2018-06-17] MEDS ORDERED: POLYETHYLENE GLYCOL 3350 17 GM/Dose PACKET PO ONE (12:00)
[2018-06-17] MEDS: Potassium Chloride 20 mEq ER Tab PO SCH (12:50)
[2018-06-17] MEDS: Potassium Ch 20mEq in D5-1/2NS 1,000 ML IV SCH (20:24)
[2018-06-18] MEDS: HYDROmorphone 0.5 mg/0.5 ml ISec IVP PRN (04:34)
[2018-06-18] MEDS: Levothyroxine 175 MCG TAB PO SCH (05:49)
[2018-06-18] MEDS: Potassium Ch 20mEq in D5-1/2NS 1,000 ML IV SCH ×2 (05:51→18:45)
[2018-06-18 07:31] LABS: BASO % 0.2 % (0.0-2.0); EOS % 0.4 % (0.0-4.0); HEMOGLOBIN 12.3 g/dL (11.0-16.0); LYMPH # 0.8 K/uL (1.0-4.3); LYMPH % 17.2 % (20.0-40.0); MEAN CELL VOLUME 87.3 fL (81.0-99.0); MEAN CORPUSCULAR HEMOGLOBIN 30.8 pg (27.0-31.0); MEAN CORPUSCULAR HGB CONC 35.2 g/dL (33.0-37.0); MEAN PLATELET VOLUME 8.3 fL (7.2-11.7); MONO # 0.7 K/uL (0.0-0.8); MONO % 15.2 % (0.0-10.0); NEUT # 3.1 K/uL (1.8-7.0); NRBC % 0.1 % (0.0-2.0); RED CELL DISTRIBUTION WIDTH 14.6 % (11.5-14.5)
[2018-06-18 07:34] LABS: WHITE BLOOD COUNT 4.7 K/uL (4.8-10.8)
[2018-06-18 07:53] LABS: BLOOD UREA NITROGEN 14 mg/dL (7-17); CALCIUM 8.3 mg/dl (8.6-10.4); GFR NON-AFRICAN AMERICAN > 60
[2018-06-18] MEDS: Enoxaparin 40 mg Syringe SC SCH (11:25)
[2018-06-18] MEDS: Potassium Chloride 20 mEq ER Tab PO SCH (11:25)
--- NOTE | 2018-06-18 16:16 | CP.PCM.PN ---
<Chaitanya Khan Jak - Last Filed: 06/18/18 16:13> Subjective - Date & Time of Evaluation Date of Evaluation: 06/18/18 Time of Evaluation: 07:14 - Subjective Subjective: Gen Surg: Dr Robins Pt S&E. KAMRAN. Complains of pain, worse with movement. Has not been ambulating. Intermittent nausea, with 1 episode of emesis. Denies sob, cp, fevers, chills. Objective - Vital Signs/Intake and Output Vital Signs (last 24 hours): Temp Pulse Resp BP Pulse Ox 98.6 F 96 H 20 120/62 96 06/18/18 08:30 06/18/18 08:30 06/18/18 08:30 06/18/18 08:30 06/18/18 08:30 Intake and Output: 06/18/18 06/18/18 06:59 18:59 Intake Total 300 800 Output Total 60 30 Balance 240 770 - Medications Medications: Current Medications Acetaminophen (Tylenol 325mg Tab) 650 mg PO Q6 PRN PRN Reason: Fever >100.4 F Artificial Tears (Refresh Opth Soln) 0 ml OD Q6H PRN PRN Reason: Dry eyes Diphenhydramine HCl (Benadryl) 50 mg PO Q8 PRN PRN Reason: Itching / Pruritus Last Admin: 06/17/18 02:56 Dose: 50 mg Docusate Sodium (Colace) 100 mg PO TID [facility] Last Admin: 06/18/18 13:44 Dose: Not Given Enoxaparin Sodium (Lovenox) 40 mg SC DAILY [facility] Last Admin: 06/18/18 11:25 Dose: 40 mg Famotidine (Pepcid) 20 mg PO DAILY [facility] Last Admin: 06/18/18 11:25 Dose: 20 mg BUPIVACAINE 0.125%/0.9% NACL (Bupivacaine-Ns 0.125% On-Q [employer] Cutter) 600 mls @ 4 mls/hr IJ ONCE ONE Stop: 06/19/18 19:59 Potassium Chloride/Dextrose/Sod Cl (Potassium Chl 20 Meq In D5-1/2ns) 1,000 mls @ 100 mls/hr IV .Q10H [facility] Last Admin: 06/18/18 05:51 Dose: 100 mls/hr Ketorolac Tromethamine (Toradol) 30 mg IVP Q6 PRN PRN Reason: Pain, severe (8-10) Last Admin: 06/18/18 14:42 Dose: 30 mg Levothyroxine Sodium (Synthroid) 175 mcg PO DAILY@0630 [facility] Last Admin: 06/18/18 05:49 Dose: 175 mcg Metoclopramide HCl (Reglan) 10 mg IVP ACHS [facility] Ondansetron HCl (Zofran Inj) 4 mg IVP Q6 PRN PRN Reason: Nausea/Vomiting Last Admin: 06/18/18 11:30 Dose: 4 mg Potassium Chloride (K-Dur 20 Meq Er Tab) 20 meq PO DAILY [facility] Last Admin: 06/18/18 11:25 Dose: 20 meq Scopolamine (Transderm-Scop) 1 patch TD Q3D [facility] Last Admin: 06/18/18 14:03 Dose: 1 patch Tramadol HCl (Ultram) 50 mg PO Q6H PRN PRN Reason: Pain, severe (8-10) Last Admin: 06/17/18 05:36 Dose: 50 mg Zolpidem Tartrate (Ambien) 5 mg PO HS PRN PRN Reason: Insomnia - Labs Labs: 06/18/18 07:22 06/18/18 07:22 - Constitutional Appears: Non-toxic - Head Exam Head Exam: NORMAL INSPECTION - Eye Exam Eye Exam: Normal appearance - ENT Exam ENT Exam: Mucous Membranes Dry - Respiratory Exam Respiratory Exam: absent: Respiratory Distress - Cardiovascular Exam Cardiovascular Exam: absent: Tachycardia - GI/Abdominal Exam GI & Abdominal Exam: Soft, Tenderness (post-op and appropriate). absent: Distended Additional comments: incision c/d/i - Extremities Exam Extremities Exam: absent: Pedal Edema - Neurological Exam Neurological Exam: Alert, Awake Assessment and Plan - Assessment and Plan (Free Text) Assessment: 33F POD#7 s/p robotic sub-total colectomy Plan: d/c narcotics transition to non-opiod oral medications OOB and ambulate anti-emetics will d/w Dr Shimon Khan, PGY4 <Landon Robins B - Last Filed: 06/22/18 16:38> Objective - Vital Signs/Intake and Output Vital Signs (last 24 hours): Temp Pulse Resp BP Pulse Ox 98.6 F 91 H 20 101/71 96 06/22/18 08:00 06/22/18 08:00 06/22/18 08:00 06/22/18 08:00 06/22/18 08:00 Intake and Output: 06/22/18 06/22/18 06:59 18:59 Intake Total 800 1600 Balance 800 1600 - Medications Medications: Current Medications Acetaminophen (Tylenol 325mg Tab) 650 mg PO Q6 PRN PRN Reason: Fever >100.4 F Artificial Tears (Refresh Opth Soln) 0 ml OD Q6H PRN PRN Reason: Dry eyes Diphenhydramine HCl (Benadryl) 50 mg PO Q8 PRN PRN Reason: Itching / Pruritus Last Admin: 06/17/18 02:56 Dose: 50 mg Enoxaparin Sodium (Lovenox) 60 mg SC Q12 [facility] Last Admin: 06/22/18 09:19 Dose: Not Given Potassium Chloride/Dextrose/Sod Cl (Potassium Chl 20 Meq In D5-1/2ns) 1,000 mls @ 100 mls/hr IV .Q10H [facility] Last Admin: 06/22/18 10:03 Dose: 100 mls/hr Multivitamins/Vitamin C 10 ml/Chromium/Copper/Manganese/Zinc 1 ml/ Amino Acids 1,011 mls @ 85 mls/hr IV .[id number] ONE Stop: 06/23/18 05:53 Amino Acids (Clinimix 4.25/5 % "E" (1000 Ml)) 1,000 mls @ 85 mls/hr IV .[id number] ONE Stop: 06/23/18 17:45 Fat Emulsion Intravenous (Intralipid 20%) 250 mls @ 42 mls/hr IV QOD@1800 [facility] Stop: 06/28/18 18:01 Isosorbide Dinitrate (Isordil) 5 mg PO BID [facility] Ketorolac Tromethamine (Toradol) 30 mg IVP Q6 [facility] Stop: 06/24/18 00:01 Last Admin: 06/22/18 12:50 Dose: Not Given Levothyroxine Sodium (Synthroid) 175 mcg PO DAILY@0630 [facility] Last Admin: 06/22/18 05:50 Dose: 175 mcg Lidocaine (Lidoderm) 1 ea TD DAILY [facility] Last Admin: 06/22/18 10:02 Dose: 1 ea Metoclopramide HCl (Reglan) 10 mg IVP Q6H [facility] Last Admin: 06/22/18 16:18 Dose: 10 mg Ondansetron HCl (Zofran Inj) 4 mg IVP Q6 PRN PRN Reason: Nausea/Vomiting Last Admin: 06/22/18 00:32 Dose: 4 mg Pantoprazole Sodium (Protonix Inj) 40 mg IVP Q12H [facility] Last Admin: 06/22/18 05:18 Dose: 40 mg Scopolamine (Transderm-Scop) 1 patch TD Q3D [facility] Last Admin: 06/21/18 09:53 Dose: 1 patch Tramadol HCl (Ultram) 50 mg PO Q6H PRN PRN Reason: Pain, severe (8-10) Last Admin: 06/19/18 10:11 Dose: 50 mg Zolpidem Tartrate (Ambien) 5 mg PO HS PRN PRN Reason: Insomnia Last Admin: 06/20/18 21:25 Dose: 5 mg - Labs Labs: 06/21/18 09:57 06/21/18 09:57 Attending/Attestation - Attestation I have personally seen and examined this patient.: Yes I have fully participated in the care of the patient.: Yes I have reviewed all pertinent clinical information, including history, physical exam and plan: Yes Notes (Text): Pt was seen and examined at bedside Agree with above note and assessment Pt with ileus Clinically stable, few episodes of vomiting CT scan today Local wound care Plan d.w pt in detail
[2018-06-19] MEDS: Potassium Ch 20mEq in D5-1/2NS 1,000 ML IV SCH ×2 (01:45→05:31)
[2018-06-19] MEDS: Levothyroxine 175 MCG TAB PO SCH (06:17)
--- NOTE | 2018-06-19 08:11 | CP.PCM.PN ---
<ErinChaitanya myers Jak - Last Filed: 06/19/18 08:25> Subjective - Date & Time of Evaluation Date of Evaluation: 06/19/18 Time of Evaluation: 06:15 - Subjective Subjective: General Surgery: Dr Robins Pt S&E. Single episode of emesis overnight. Passing flatus, having BMs. Still with intermittent pain, but pt has begun to ambulate. Denies f/c, n/v. Objective - Vital Signs/Intake and Output Vital Signs (last 24 hours): Temp Pulse Resp BP Pulse Ox 98.3 F 75 20 109/75 97 06/19/18 08:00 06/19/18 08:00 06/19/18 08:00 06/19/18 08:00 06/19/18 08:00 Intake and Output: 06/19/18 06/19/18 06:59 18:59 Intake Total 800 920 Output Total 20 5 Balance 780 915 - Medications Medications: Current Medications Acetaminophen (Tylenol 325mg Tab) 650 mg PO Q6 PRN PRN Reason: Fever >100.4 F Artificial Tears (Refresh Opth Soln) 0 ml OD Q6H PRN PRN Reason: Dry eyes Diphenhydramine HCl (Benadryl) 50 mg PO Q8 PRN PRN Reason: Itching / Pruritus Last Admin: 06/17/18 02:56 Dose: 50 mg Docusate Sodium (Colace) 100 mg PO TID [facility] Last Admin: 06/18/18 17:55 Dose: 100 mg Enoxaparin Sodium (Lovenox) 40 mg SC DAILY [facility] Last Admin: 06/18/18 11:25 Dose: 40 mg Famotidine (Pepcid) 20 mg PO DAILY [facility] Last Admin: 06/18/18 11:25 Dose: 20 mg Potassium Chloride/Dextrose/Sod Cl (Potassium Chl 20 Meq In D5-1/2ns) 1,000 mls @ 100 mls/hr IV .Q10H [facility] Last Admin: 06/19/18 05:31 Dose: 100 mls/hr Ketorolac Tromethamine (Toradol) 30 mg IVP Q6 PRN PRN Reason: Pain, severe (8-10) Last Admin: 06/19/18 06:03 Dose: 30 mg Levothyroxine Sodium (Synthroid) 175 mcg PO DAILY@0630 [facility] Last Admin: 06/19/18 06:17 Dose: 175 mcg Metoclopramide HCl (Reglan) 10 mg IVP Q6H [facility] Last Admin: 06/19/18 04:49 Dose: 10 mg Ondansetron HCl (Zofran Inj) 4 mg IVP Q6 PRN PRN Reason: Nausea/Vomiting Last Admin: 06/19/18 01:58 Dose: 4 mg Scopolamine (Transderm-Scop) 1 patch TD Q3D [facility] Last Admin: 06/18/18 14:03 Dose: 1 patch Tramadol HCl (Ultram) 50 mg PO Q6H PRN PRN Reason: Pain, severe (8-10) Last Admin: 06/19/18 01:51 Dose: 50 mg Zolpidem Tartrate (Ambien) 5 mg PO HS PRN PRN Reason: Insomnia Last Admin: 06/18/18 22:09 Dose: 5 mg - Labs Labs: 06/18/18 07:22 06/18/18 07:22 - Constitutional Appears: Non-toxic, No Acute Distress - ENT Exam ENT Exam: Mucous Membranes Moist - Respiratory Exam Respiratory Exam: absent: Accessory Muscle Use, Respiratory Distress - Cardiovascular Exam Cardiovascular Exam: REGULAR RHYTHM. absent: Tachycardia - GI/Abdominal Exam GI & Abdominal Exam: Soft, Tenderness (tenderness appropriate for post op). absent: Distended, Firm - Neurological Exam Neurological Exam: Alert, Awake, Oriented x3 - Psychiatric Exam Psychiatric exam: Normal Mood - Skin Skin Exam: Normal Color, Warm Assessment and Plan - Assessment and Plan (Free Text) Assessment: 33F s/p sub-total colectomy Plan: resume CLD d/c drain cont pain control d/w Dr Shimon Khan, PGY4 <Landon Robins B - Last Filed: 06/22/18 16:42> Objective - Vital Signs/Intake and Output Vital Signs (last 24 hours): Temp Pulse Resp BP Pulse Ox 97.7 F 89 20 93/66 L 97 06/22/18 16:37 06/22/18 16:37 06/22/18 16:37 06/22/18 16:37 06/22/18 16:37 Intake and Output: 06/22/18 06/22/18 06:59 18:59 Intake Total 800 1600 Balance 800 1600 - Medications Medications: Current Medications Acetaminophen (Tylenol 325mg Tab) 650 mg PO Q6 PRN PRN Reason: Fever >100.4 F Artificial Tears (Refresh Opth Soln) 0 ml OD Q6H PRN PRN Reason: Dry eyes Diphenhydramine HCl (Benadryl) 50 mg PO Q8 PRN PRN Reason: Itching / Pruritus Last Admin: 06/17/18 02:56 Dose: 50 mg Enoxaparin Sodium (Lovenox) 60 mg SC Q12 [facility] Last Admin: 06/22/18 09:19 Dose: Not Given Potassium Chloride/Dextrose/Sod Cl (Potassium Chl 20 Meq In D5-1/2ns) 1,000 mls @ 100 mls/hr IV .Q10H [facility] Last Admin: 06/22/18 10:03 Dose: 100 mls/hr Multivitamins/Vitamin C 10 ml/Chromium/Copper/Manganese/Zinc 1 ml/ Amino Acids 1,011 mls @ 85 mls/hr IV .[id number] ONE Stop: 06/23/18 05:53 Amino Acids (Clinimix 4.25/5 % "E" (1000 Ml)) 1,000 mls @ 85 mls/hr IV .[id number] ONE Stop: 06/23/18 17:45 Fat Emulsion Intravenous (Intralipid 20%) 250 mls @ 42 mls/hr IV QOD@1800 [facility] Stop: 06/28/18 18:01 Isosorbide Dinitrate (Isordil) 5 mg PO BID [facility] Ketorolac Tromethamine (Toradol) 30 mg IVP Q6 [facility] Stop: 06/24/18 00:01 Last Admin: 06/22/18 12:50 Dose: Not Given Levothyroxine Sodium (Synthroid) 175 mcg PO DAILY@0630 [facility] Last Admin: 06/22/18 05:50 Dose: 175 mcg Lidocaine (Lidoderm) 1 ea TD DAILY [facility] Last Admin: 06/22/18 10:02 Dose: 1 ea Metoclopramide HCl (Reglan) 10 mg IVP Q6H [facility] Last Admin: 06/22/18 16:18 Dose: 10 mg Ondansetron HCl (Zofran Inj) 4 mg IVP Q6 PRN PRN Reason: Nausea/Vomiting Last Admin: 06/22/18 00:32 Dose: 4 mg Pantoprazole Sodium (Protonix Inj) 40 mg IVP Q12H [facility] Last Admin: 06/22/18 05:18 Dose: 40 mg Scopolamine (Transderm-Scop) 1 patch TD Q3D [facility] Last Admin: 06/21/18 09:53 Dose: 1 patch Tramadol HCl (Ultram) 50 mg PO Q6H PRN PRN Reason: Pain, severe (8-10) Last Admin: 06/19/18 10:11 Dose: 50 mg Zolpidem Tartrate (Ambien) 5 mg PO HS PRN PRN Reason: Insomnia Last Admin: 06/20/18 21:25 Dose: 5 mg - Labs Labs: 06/21/18 09:57 06/21/18 09:57 Attending/Attestation - Attestation I have personally seen and examined this patient.: Yes I have fully participated in the care of the patient.: Yes I have reviewed all pertinent clinical information, including history, physical exam and plan: Yes Notes (Text): Pt was seen and examined at bedside Agree with above note and assessment Pt is same clinically Awaiting CT scan of A/P with PO and IV contrast C/w current mx Plan d.w pt in detail
[2018-06-19 08:32] LABS: BLOOD UREA NITROGEN 21 mg/dL (7-17); CALCIUM 8.3 mg/dl (8.6-10.4); GFR NON-AFRICAN AMERICAN > 60
--- NOTE | 2018-06-19 08:53 | RAD ---
Date of service: 06/18/2018 HISTORY: nausea/vomiting COMPARISON: 06/14/2018 FINDINGS: BOWEL: The prior small bowel dilated loops compatible with an ileus are again suggested. The orientation of the minimally dilated loops small bowel is now more central in the upper abdomen. A Jose Alberto-Marie type drain is inferred present - its tip projecting over the left iliac bone. The prior chain sutures now projects over the left L5-S1 facets. And partly over the reservoir bulb for the drain. BONES: Normal. OTHER FINDINGS: The lateral right abdominal subcutaneous emphysema is less now. IMPRESSION: Continuing ileus inferred. Other findings as above.
[2018-06-19] MEDS: Enoxaparin 40 mg Syringe SC SCH (10:11)
[2018-06-19] MEDS ORDERED: Potassium & Sodium Phosphate PO ONE (10:29)
[2018-06-20] MEDS: Levothyroxine 175 MCG TAB PO SCH (05:43)
[2018-06-20] MEDS: Enoxaparin 40 mg Syringe SC SCH (09:28)
[2018-06-20] MEDS ORDERED: Potassium Phosphate 30 MMOLE in Sodium Chloride 0.9% 250 ML IVPB ONE (10:36)
[2018-06-20] MEDS ORDERED: Iohexol 240 (50 ml) PO ONE (12:30)
[2018-06-20] MEDS ORDERED: Iodixanol 320 MG/ML 100 ML BOTTLE IV ONE (16:31)
--- NOTE | 2018-06-20 17:40 | CT ---
PROCEDURE: CT Abdomen and Pelvis with oral and IV contrast. HISTORY: vomiting, diarrhea, s/p subtotal colon resection COMPARISON: CT abdomen pelvis with IV contrast performed 05/04/18 TECHNIQUE: Contiguous axial images of the abdomen and pelvis. Oral and IV contrast was administered. Coronal and Sagittal reformats generated and reviewed. Contrast dose: 100 cc Visipaque 320 Radiation dose: Total exam DLP = 455.45 mGy-cm. This CT exam was performed using one or more of the following dose reduction techniques: Automated exposure control, adjustment of the mA and/or kV according to patient size, and/or use of iterative reconstruction technique. FINDINGS: LOWER THORAX: No visible consolidation, pleural effusion, or pneumothorax. LIVER: 1.4 cm right hepatic dome hypodense lesion. Filling defect involving the right and left branches of the portal vein. GALLBLADDER AND BILE DUCTS: Unremarkable. PANCREAS: Unremarkable. SPLEEN: Unremarkable. ADRENALS: Unremarkable. KIDNEYS AND URETERS: The kidneys enhance symmetrically. No hydronephrosis or obstructing renal calculus. BLADDER: Decompressed urinary bladder limits evaluation. REPRODUCTIVE: Uterus is present. BOWEL: Air in fluid-filled gastric distension. Markedly dilated in fluid-filled small bowel loops with suspected transition point in the deep right pelvis (series 3, image [id number]); appearance consistent with small bowel obstruction. Anastomotic suture line re-identified at the distal rectosigmoid. PERITONEUM: No significant free fluid. No definite free air. LYMPH NODES: No bulky lymphadenopathy identified. VASCULATURE: No aortic aneurysm. BONES: No acute osseous abnormality is detected. OTHER FINDINGS: Subcutaneous air, right lateral abdominal wall; correlate for recent injections. IMPRESSION: Air in fluid-filled gastric distension. Markedly dilated in fluid-filled small bowel loops with suspected transition point in the deep right pelvis; appearance consistent with small bowel obstruction. Anastomotic suture line re-identified at the distal rectosigmoid. Filling defect involving the right and left branches of the portal vein consistent with thrombus. Re-identified 1.4 cm right hepatic dome hypodense lesion, indeterminate. Findings discussed with patient's ROSE MARY Hillman on 06/20/18 at 5:31 p.m.
[2018-06-20] MEDS: Lidocaine 5% Patch TD SCH (18:26)
[2018-06-21] MEDS: Levothyroxine 175 MCG TAB PO SCH (05:32)
[2018-06-21] MEDS: Enoxaparin 40 mg Syringe SC SCH (09:53)
[2018-06-21] MEDS: Lidocaine 5% Patch TD SCH (09:54)
[2018-06-21] MEDS ORDERED: Lidocaine 5% Patch TD SCH ×2 (10:00→18:13)
[2018-06-21 10:06] LABS: MEAN CELL VOLUME 86.7 fL (81.0-99.0); MEAN CORPUSCULAR HEMOGLOBIN 29.8 pg (27.0-31.0); MEAN CORPUSCULAR HGB CONC 34.4 g/dL (33.0-37.0); MEAN PLATELET VOLUME 7.8 fL (7.2-11.7); RBC 4.35 Mil/uL (3.80-5.20); RED CELL DISTRIBUTION WIDTH 14.4 % (11.5-14.5); WHITE BLOOD COUNT 11.7 K/uL (4.8-10.8)
[2018-06-21 10:18] LABS: ALB/GLOB RATIO 1.1 (1.0-2.1); ALT/SGPT 19 U/L (9-52); AST/SGOT 17 U/L (14-36); BLOOD UREA NITROGEN 31 mg/dL (7-17); CALCIUM 8.8 mg/dl (8.6-10.4); GFR NON-AFRICAN AMERICAN > 60
--- NOTE | 2018-06-21 13:28 | US ---
Date of service: 06/21/2018 HISTORY: portal vein thrombosis, see CT 06/20 COMPARISON: CT abdomen pelvis with contrast performed 06/20/18 TECHNIQUE: Sonographic evaluation of the right upper quadrant of the abdomen. FINDINGS: Examination limited by bowel gas. LIVER: Measures 14.7 cm in length. Echogenic liver may be seen in setting of hepatic parenchymal disease or fatty infiltration. Left hepatic lobe not visualized. 1.6 x 1.4 x 1.5 cm echogenic lesion, hepatic dome right lobe. 0.8 x 0.8 x 1.0 cm echogenic lesion within the right hepatic lobe. The main portal vein appears patent with normal directional flow. No intrahepatic bile duct dilatation. GALLBLADDER: No gallstones. No gallbladder wall thickening or pericholecystic edema. Negative sonographic Zacarias's sign as assessed by the correspondence review clerk. COMMON BILE DUCT: Measures 4 mm. PANCREAS: Not well-visualized. RIGHT KIDNEY: Measures 9.6 x 4.6 x 4.6 cm. No obstructing calculus or hydronephrosis identified. AORTA: Not well-visualized. IVC: Not well-visualized. OTHER FINDINGS: None . IMPRESSION: Limited study. The main portal vein appears patent with normal directional flow. Please note that the left and right branches of the portal vein are not assessed on this study and demonstrate thrombus on CT performed 06/20/18. Echogenic hepatic lesions as above, indeterminate.
[2018-06-21] MEDS: Potassium Ch 20mEq in D5-1/2NS 1,000 ML IV SCH (15:09)
[2018-06-21] MEDS ORDERED: Iodixanol 320 MG/ML 100 ML BOTTLE IV ONE (16:48)
--- NOTE | 2018-06-21 17:47 | CT ---
Date of service: 06/21/2018 PROCEDURE: CT Abdomen with and without intravenous contrast HISTORY: portal vein thrombosis COMPARISON: 10/16/2017, 05/04/2018, 06/20/[address] scans abdomen and pelvis. June 21, 2018 abdominal ultrasound. Summary of findings on the comparison examination: The main portal vein appears patent with normal directional flow. TECHNIQUE: Axial images of the abdomen from lung bases to iliac crest with and without intravenous contrast enhancement. Coronal and sagittal reformats generated. Oral contrast also administered. Intravenous contrast Dose: 100 cc Visipaque 320. Radiation dose: Total exam DLP = 527.17 flow mGy-cm. This CT exam was performed using one or more of the following dose reduction techniques: Automated exposure control, adjustment of the mA and/or kV according to patient size, and/or use of iterative reconstruction technique. FINDINGS: LOWER THORAX: Unremarkable. LIVER: Hepatic steatosis. Stable mass dome of the liver measuring 1.5 cm. Stable nonocclusive thrombus identified in right and left portal veins. The remainder of the portal vein and splenic vein are patent. GALLBLADDER AND BILE DUCTS: Contrast in the gallbladder consistent with vicarious excretion related prior contrast injections. PANCREAS: Unremarkable. No gross lesion or ductal dilatation. SPLEEN: Unremarkable. ADRENALS: Unremarkable. No mass. KIDNEYS AND URETERS: Retention of contrast on the unenhanced component and abnormal contrast-enhancing characteristics of the kidneys. The findings are nonspecific but can be seen in renal failure. This should be correlated clinically. VASCULATURE: Unremarkable. No aortic aneurysm. BOWEL: Stable dilatation of loops of small bowel consistent with distal small bowel obstruction. The point of obstruction in the right hemipelvis is not visible on the current study. APPENDIX: Not visible. PERITONEUM: Unremarkable. No free fluid. No free air. LYMPH NODES: Unremarkable. No enlarged lymph nodes. BLADDER: Not visible REPRODUCTIVE: Not visible BONES: No acute fracture. OTHER FINDINGS: None. IMPRESSION: 1. Thrombus in right and left main portal veins. Similar findings identified previously. No additional thrombus identified in the remainder of the portal venous system including splenic vein. 2. Stable, as visualized, small bowel obstruction. 3. Abnormal contrast-enhancing characteristics of the kidneys suggests a component of renal failure. Please correlate with appropriate clinical values including GFR
--- NOTE | 2018-06-21 18:12 | CP.PCM.PN ---
<Marcella Hopper - Last Filed: 06/21/18 18:31> Subjective - Date & Time of Evaluation Date of Evaluation: 06/21/18 Time of Evaluation: 07:30 - Subjective Subjective: General surgery progress note for Dr. Robins Pt seen and examined at bedside this AM. pt had persistent nausea and vomiting overnight. Patient continues to pass gas and have BM's, Reports pain is improving. Objective - Vital Signs/Intake and Output Vital Signs (last 24 hours): Temp Pulse Resp BP Pulse Ox 98.4 F 109 H 20 107/76 97 06/21/18 15:00 06/21/18 15:00 06/21/18 15:00 06/21/18 15:00 06/21/18 15:00 Intake and Output: 06/21/18 06/21/18 06:59 18:59 Intake Total 640 400 Balance 640 400 - Medications Medications: Current Medications Acetaminophen (Tylenol 325mg Tab) 650 mg PO Q6 PRN PRN Reason: Fever >100.4 F Artificial Tears (Refresh Opth Soln) 0 ml OD Q6H PRN PRN Reason: Dry eyes Diphenhydramine HCl (Benadryl) 50 mg PO Q8 PRN PRN Reason: Itching / Pruritus Last Admin: 06/17/18 02:56 Dose: 50 mg Docusate Sodium (Colace) 100 mg PO TID [facility] Last Admin: 06/21/18 14:01 Dose: 100 mg Enoxaparin Sodium (Lovenox) 40 mg SC DAILY [facility] Last Admin: 06/21/18 09:53 Dose: 40 mg Potassium Chloride/Dextrose/Sod Cl (Potassium Chl 20 Meq In D5-1/2ns) 1,000 mls @ 100 mls/hr IV .Q10H [facility] Last Admin: 06/21/18 15:09 Dose: 100 mls/hr Ketorolac Tromethamine (Toradol) 30 mg IVP Q6 [facility] Stop: 06/24/18 00:01 Levothyroxine Sodium (Synthroid) 175 mcg PO DAILY@0630 [facility] Last Admin: 06/21/18 05:32 Dose: 175 mcg Lidocaine (Lidoderm) 1 ea TD DAILY [facility] Last Admin: 06/21/18 09:54 Dose: 1 ea Metoclopramide HCl (Reglan) 10 mg IVP Q6H [facility] Last Admin: 06/21/18 16:56 Dose: 10 mg Ondansetron HCl (Zofran Inj) 4 mg IVP Q6 PRN PRN Reason: Nausea/Vomiting Last Admin: 06/21/18 13:54 Dose: 4 mg Pantoprazole Sodium (Protonix Inj) 40 mg IVP Q12H [facility] Last Admin: 06/21/18 16:55 Dose: 40 mg Scopolamine (Transderm-Scop) 1 patch TD Q3D [facility] Last Admin: 06/21/18 09:53 Dose: 1 patch Tramadol HCl (Ultram) 50 mg PO Q6H PRN PRN Reason: Pain, severe (8-10) Last Admin: 06/19/18 10:11 Dose: 50 mg Zolpidem Tartrate (Ambien) 5 mg PO HS PRN PRN Reason: Insomnia Last Admin: 06/20/18 21:25 Dose: 5 mg - Labs Labs: 06/21/18 09:57 06/21/18 09:57 - Constitutional Appears: Well, Non-toxic, No Acute Distress - Head Exam Head Exam: ATRAUMATIC, NORMOCEPHALIC - Eye Exam Eye Exam: Normal appearance. absent: Conjunctival injection, Scleral icterus - ENT Exam ENT Exam: Mucous Membranes Moist, Normal Oropharynx - Respiratory Exam Respiratory Exam: NORMAL BREATHING PATTERN. absent: Accessory Muscle Use, Respiratory Distress - Cardiovascular Exam Cardiovascular Exam: RRR - GI/Abdominal Exam GI & Abdominal Exam: Soft, Tenderness (tenderness to palpation around incisions ). 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 Shimon Hopepr, PGY2 <Landon Robins - Last Filed: 06/22/18 16:50> Objective - Vital Signs/Intake and Output Vital Signs (last 24 hours): Temp Pulse Resp BP Pulse Ox 97.7 F 89 20 93/66 L 97 06/22/18 16:37 06/22/18 16:37 06/22/18 16:37 06/22/18 16:37 06/22/18 16:37 Intake and Output: 06/22/18 06/22/18 06:59 18:59 Intake Total 800 1600 Balance 800 1600 - Medications Medications: Current Medications Acetaminophen (Tylenol 325mg Tab) 650 mg PO Q6 PRN PRN Reason: Fever >100.4 F Artificial Tears (Refresh Opth Soln) 0 ml OD Q6H PRN PRN Reason: Dry eyes Diphenhydramine HCl (Benadryl) 50 mg PO Q8 PRN PRN Reason: Itching / Pruritus Last Admin: 06/17/18 02:56 Dose: 50 mg Enoxaparin Sodium (Lovenox) 60 mg SC Q12 [facility] Last Admin: 06/22/18 09:19 Dose: Not Given Potassium Chloride/Dextrose/Sod Cl (Potassium Chl 20 Meq In D5-1/2ns) 1,000 mls @ 100 mls/hr IV .Q10H [facility] Last Admin: 06/22/18 10:03 Dose: 100 mls/hr Multivitamins/Vitamin C 10 ml/Chromium/Copper/Manganese/Zinc 1 ml/ Amino Acids 1,011 mls @ 85 mls/hr IV .[id number] ONE Stop: 06/23/18 05:53 Amino Acids (Clinimix 4.25/5 % "E" (1000 Ml)) 1,000 mls @ 85 mls/hr IV .[id number] ONE Stop: 06/23/18 17:45 Fat Emulsion Intravenous (Intralipid 20%) 250 mls @ 42 mls/hr IV QOD@1800 [facility] Stop: 06/28/18 18:01 Isosorbide Dinitrate (Isordil) 5 mg PO BID [facility] Ketorolac Tromethamine (Toradol) 30 mg IVP Q6 [facility] Stop: 10/14/18 00:01 Last Admin: 06/22/18 12:50 Dose: Not Given Levothyroxine Sodium (Synthroid) 175 mcg PO DAILY@0630 [facility] Last Admin: 06/22/18 05:50 Dose: 175 mcg Lidocaine (Lidoderm) 1 ea TD DAILY [facility] Last Admin: 06/22/18 10:02 Dose: 1 ea Metoclopramide HCl (Reglan) 10 mg IVP Q6H [facility] Last Admin: 06/22/18 16:18 Dose: 10 mg Ondansetron HCl (Zofran Inj) 4 mg IVP Q6 PRN PRN Reason: Nausea/Vomiting Last Admin: 06/22/18 00:32 Dose: 4 mg Pantoprazole Sodium (Protonix Inj) 40 mg IVP Q12H [facility] Last Admin: 06/22/18 05:18 Dose: 40 mg Scopolamine (Transderm-Scop) 1 patch TD Q3D [facility] Last Admin: 06/21/18 09:53 Dose: 1 patch Tramadol HCl (Ultram) 50 mg PO Q6H PRN PRN Reason: Pain, severe (8-10) Last Admin: 06/19/18 10:11 Dose: 50 mg Zolpidem Tartrate (Ambien) 5 mg PO HS PRN PRN Reason: Insomnia Last Admin: 06/20/18 21:25 Dose: 5 mg - Labs Labs: 06/21/18 09:57 06/21/18 09:57 Attending/Attestation - Attestation I have personally seen and examined this patient.: Yes I have fully participated in the care of the patient.: Yes I have reviewed all pertinent clinical information, including history, physical exam and plan: Yes Notes (Text): Pt was seen and examined at bedside Agree with above note and assessment Pt is same clinically CT scan is suggestive of dilated bowel loops with possible Portal vein thrombosis Repeat CT with Liver protocole to confirm diagnosis in am Start Anticoagulation if Duplex is positive C/w current mx Plan d.w pt in detail .
[2018-06-22] MEDS: Potassium Ch 20mEq in D5-1/2NS 1,000 ML IV SCH ×2 (00:15→10:03)
[2018-06-22] MEDS: Levothyroxine 175 MCG TAB PO SCH (05:50)
[2018-06-22] MEDS: Enoxaparin 60 mg Syringe SC SCH ×4 (08:29→21:51)
[2018-06-22] MEDS: Lidocaine 5% Patch TD SCH (10:02)
--- NOTE | 2018-06-22 10:31 | CP.PCM.PN ---
<YosephNaima - Last Filed: 06/22/18 10:28> Subjective - Date & Time of Evaluation Date of Evaluation: 06/22/18 Time of Evaluation: 10:28 - Subjective Subjective: Surgery Pt seen and examined. Denies fever, CP, SOB. continues to have vomiting, non bloody. bilious output. REports voiding, BM. No appetite. Ambulates. Pain controlled. Objective - Vital Signs/Intake and Output Vital Signs (last 24 hours): Temp Pulse Resp BP Pulse Ox 98.6 F 91 H 20 101/71 96 06/22/18 08:00 06/22/18 08:00 06/22/18 08:00 06/22/18 08:00 06/22/18 08:00 Intake and Output: 06/22/18 06/22/18 06:59 18:59 Intake Total 800 800 Balance 800 800 - Medications Medications: Current Medications Acetaminophen (Tylenol 325mg Tab) 650 mg PO Q6 PRN PRN Reason: Fever >100.4 F Artificial Tears (Refresh Opth Soln) 0 ml OD Q6H PRN PRN Reason: Dry eyes Diphenhydramine HCl (Benadryl) 50 mg PO Q8 PRN PRN Reason: Itching / Pruritus Last Admin: 06/17/18 02:56 Dose: 50 mg Enoxaparin Sodium (Lovenox) 60 mg SC Q12 [facility] Last Admin: 06/22/18 09:19 Dose: Not Given Potassium Chloride/Dextrose/Sod Cl (Potassium Chl 20 Meq In D5-1/2ns) 1,000 mls @ 100 mls/hr IV .Q10H [facility] Last Admin: 06/22/18 10:03 Dose: 100 mls/hr Ketorolac Tromethamine (Toradol) 30 mg IVP Q6 [facility] Stop: 06/24/18 00:01 Last Admin: 06/22/18 05:18 Dose: 30 mg Levothyroxine Sodium (Synthroid) 175 mcg PO DAILY@0630 [facility] Last Admin: 06/22/18 05:50 Dose: 175 mcg Lidocaine (Lidoderm) 1 ea TD DAILY [facility] Last Admin: 06/22/18 10:02 Dose: 1 ea Metoclopramide HCl (Reglan) 10 mg IVP Q6H [facility] Last Admin: 06/22/18 10:02 Dose: 10 mg Ondansetron HCl (Zofran Inj) 4 mg IVP Q6 PRN PRN Reason: Nausea/Vomiting Last Admin: 06/22/18 00:32 Dose: 4 mg Pantoprazole Sodium (Protonix Inj) 40 mg IVP Q12H [facility] Last Admin: 06/22/18 05:18 Dose: 40 mg Scopolamine (Transderm-Scop) 1 patch TD Q3D [facility] Last Admin: 06/21/18 09:53 Dose: 1 patch Tramadol HCl (Ultram) 50 mg PO Q6H PRN PRN Reason: Pain, severe (8-10) Last Admin: 06/19/18 10:11 Dose: 50 mg Zolpidem Tartrate (Ambien) 5 mg PO HS PRN PRN Reason: Insomnia Last Admin: 06/20/18 21:25 Dose: 5 mg - Labs Labs: 06/21/18 09:57 06/21/18 09:57 - Constitutional Appears: Non-toxic - Head Exam Head Exam: ATRAUMATIC, NORMAL INSPECTION, NORMOCEPHALIC - Eye Exam Eye Exam: EOMI, Normal appearance, PERRL Pupil Exam: NORMAL ACCOMODATION, PERRL - ENT Exam ENT Exam: Mucous Membranes Moist, Normal Exam - Neck Exam Neck Exam: Full ROM, Normal Inspection. absent: Lymphadenopathy - Respiratory Exam Respiratory Exam: NORMAL BREATHING PATTERN - Cardiovascular Exam Cardiovascular Exam: REGULAR RHYTHM - GI/Abdominal Exam GI & Abdominal Exam: Soft, Tenderness. absent: Distended, Firm, Guarding Additional comments: Incisions C/D/I. TTP - Exam Exam: NORMAL INSPECTION - Extremities Exam Extremities Exam: Full ROM, Normal Capillary Refill, Normal Inspection. absent: Joint Swelling, Pedal Edema - Back Exam Back Exam: NORMAL INSPECTION - Neurological Exam Neurological Exam: Alert, Awake, CN II-XII Intact, Normal Gait, Oriented x3 - Psychiatric Exam Psychiatric exam: Normal Affect, Normal Mood - Skin Skin Exam: Dry, Intact, Normal Color, Warm Assessment and Plan - Assessment and Plan (Free Text) Assessment: 33F POD#11 s/p subtotal colectomy with primary ileo-sigmoid anastamosis Plan: CT abdomen and pelvis revealed distended loops of bowel and thrombus of the left and the right portal veins will obtain a duplex US of the portal vein system, may consider triple phase CT of the liver to confirm if patient continues to have nausea and vomiting will make NPO and insert an NGT Continue to trend CBC/CMP -Theraputic LVX 70mg BID SC -Ambulate -IS -GI ppx Discussed with Dr. Robins <Landon Robins - Last Filed: 06/22/18 16:48> Objective - Vital Signs/Intake and Output Vital Signs (last 24 hours): Temp Pulse Resp BP Pulse Ox 97.7 F 89 20 93/66 L 97 06/22/18 16:37 06/22/18 16:37 06/22/18 16:37 06/22/18 16:37 06/22/18 16:37 Intake and Output: 06/22/18 06/22/18 06:59 18:59 Intake Total 800 1600 Balance 800 1600 - Medications Medications: Current Medications Acetaminophen (Tylenol 325mg Tab) 650 mg PO Q6 PRN PRN Reason: Fever >100.4 F Artificial Tears (Refresh Opth Soln) 0 ml OD Q6H PRN PRN Reason: Dry eyes Diphenhydramine HCl (Benadryl) 50 mg PO Q8 PRN PRN Reason: Itching / Pruritus Last Admin: 06/17/18 02:56 Dose: 50 mg Enoxaparin Sodium (Lovenox) 60 mg SC Q12 [facility] Last Admin: 06/22/18 09:19 Dose: Not Given Potassium Chloride/Dextrose/Sod Cl (Potassium Chl 20 Meq In D5-1/2ns) 1,000 mls @ 100 mls/hr IV .Q10H [facility] Last Admin: 06/22/18 10:03 Dose: 100 mls/hr Multivitamins/Vitamin C 10 ml/Chromium/Copper/Manganese/Zinc 1 ml/ Amino Acids 1,011 mls @ 85 mls/hr IV .[id number] ONE Stop: 06/23/18 05:53 Amino Acids (Clinimix 4.25/5 % "E" (1000 Ml)) 1,000 mls @ 85 mls/hr IV .[id number] ONE Stop: 06/23/18 17:45 Fat Emulsion Intravenous (Intralipid 20%) 250 mls @ 42 mls/hr IV QOD@1800 [facility] Stop: 06/28/18 18:01 Isosorbide Dinitrate (Isordil) 5 mg PO BID [facility] Ketorolac Tromethamine (Toradol) 30 mg IVP Q6 [facility] Stop: 06/24/18 00:01 Last Admin: 06/22/18 12:50 Dose: Not Given Levothyroxine Sodium (Synthroid) 175 mcg PO DAILY@0630 [facility] Last Admin: 06/22/18 05:50 Dose: 175 mcg Lidocaine (Lidoderm) 1 ea TD DAILY [facility] Last Admin: 06/22/18 10:02 Dose: 1 ea Metoclopramide HCl (Reglan) 10 mg IVP Q6H [facility] Last Admin: 06/22/18 16:18 Dose: 10 mg Ondansetron HCl (Zofran Inj) 4 mg IVP Q6 PRN PRN Reason: Nausea/Vomiting Last Admin: 06/22/18 00:32 Dose: 4 mg Pantoprazole Sodium (Protonix Inj) 40 mg IVP Q12H [facility] Last Admin: 06/22/18 05:18 Dose: 40 mg Scopolamine (Transderm-Scop) 1 patch TD Q3D [facility] Last Admin: 06/21/18 09:53 Dose: 1 patch Tramadol HCl (Ultram) 50 mg PO Q6H PRN PRN Reason: Pain, severe (8-10) Last Admin: 06/19/18 10:11 Dose: 50 mg Zolpidem Tartrate (Ambien) 5 mg PO HS PRN PRN Reason: Insomnia Last Admin: 06/20/18 21:25 Dose: 5 mg - Labs Labs: 06/21/18 09:57 06/21/18 09:57 Attending/Attestation - Attestation I have personally seen and examined this patient.: Yes I have fully participated in the care of the patient.: Yes I have reviewed all pertinent clinical information, including history, physical exam and plan: Yes Notes (Text): Pt was seen and examined at bedside Agree with above note and assessment Pt with PVT thrombosis of unknow etiology Therapeutic Anticoagulation NG tube insertion PPN NPO, IVF C/w current mx Plan d.w pt in detail
--- NOTE | 2018-06-22 12:25 | RAD ---
Date of service: 06/22/2018 HISTORY: NGT placement COMPARISON: No prior. FINDINGS: In situ NGT which is coiled upon itself in the esophagus. This must be repositioned. Rate LUNGS: No active pulmonary disease. PLEURA: No significant pleural effusion identified, no pneumothorax apparent. CARDIOVASCULAR: Normal. OSSEOUS STRUCTURES: No significant abnormalities. VISUALIZED UPPER ABDOMEN: Multiple distended air-filled loops of small bowel possibly representing postoperative ileus... Diminished free intraperitoneal air. OTHER FINDINGS: None. IMPRESSION: Malpositioned NGT as described. This must be repositioned. Note that 3T Nurse Puneet informed these findings at approximately 12 p.m. with written down and read back verification. Interval diminution free intraperitoneal air
[2018-06-22] MEDS ORDERED: PPN #1 IV ONE (18:00)
[2018-06-22] MEDS: Fat Emulsion 20% IV 250 ML IV SCH (18:10)
[2018-06-23] MEDS: Levothyroxine 175 MCG TAB PO SCH (05:38)
[2018-06-23] MEDS ORDERED: PPN #2 IV ONE (06:00)
[2018-06-23 07:28] LABS: BASO % 0.1 % (0.0-2.0); EOS # 0.2 K/uL (0.0-0.7); EOS % 1.2 % (0.0-4.0); HEMOGLOBIN 12.3 g/dL (11.0-16.0); LYMPH # 2.5 K/uL (1.0-4.3); LYMPH % 17.3 % (20.0-40.0); MEAN CELL VOLUME 86.3 fL (81.0-99.0); MEAN CORPUSCULAR HEMOGLOBIN 29.8 pg (27.0-31.0); MEAN CORPUSCULAR HGB CONC 34.6 g/dL (33.0-37.0); MEAN PLATELET VOLUME 8.3 fL (7.2-11.7); MONO # 1.7 K/uL (0.0-0.8); MONO % 12.2 % (0.0-10.0); NEUT # 9.9 K/uL (1.8-7.0); NEUT % 69.2 % (50.0-75.0); RBC 4.11 Mil/uL (3.80-5.20); RED CELL DISTRIBUTION WIDTH 14.8 % (11.5-14.5); WHITE BLOOD COUNT 14.3 K/uL (4.8-10.8)
[2018-06-23 08:13] LABS: ALBUMIN 3.4 g/dL (3.5-5.0); ALT/SGPT 25 U/L (9-52); AST/SGOT 27 U/L (14-36); BLOOD UREA NITROGEN 40 mg/dL (7-17); CALCIUM 8.2 mg/dl (8.6-10.4); GFR NON-AFRICAN AMERICAN > 60
[2018-06-23] MEDS: Enoxaparin 60 mg Syringe SC SCH ×2 (10:23→21:53)
[2018-06-23] MEDS: Lidocaine 5% Patch TD SCH (10:23)
--- NOTE | 2018-06-23 14:02 | CP.PCM.PN ---
Addendum entered and electronically signed by Naima Hameed DO 06/23/18 14:55: Seen and examined w Dr. Robins. Pt continues to refuse NGT -WIll hold off on NGT -Sips of clears -Bridge with Coumadin DW Dr. Robins Original Note: <Naima Hameed - Last Filed: 06/23/18 14:11> Subjective - Date & Time of Evaluation Date of Evaluation: 06/23/18 Time of Evaluation: 13:56 - Subjective Subjective: Surgery Pt seen and examined. Pt continues to have emesis. Having BM. Ambulates. Denies fever, CP, SOB. Getting PPN. NGT inserted yesterday. Pt pulled it out. Pt refusing further NGT placement. Pt has h/o achalasia. Objective - Vital Signs/Intake and Output Vital Signs (last 24 hours): Temp Pulse Resp BP Pulse Ox 98.5 F 86 20 102/66 96 06/23/18 07:46 06/23/18 07:46 06/23/18 07:46 06/23/18 07:46 06/23/18 07:46 Intake and Output: 06/23/18 06/23/18 06:59 18:59 Intake Total 1671 Balance 1671 - Medications Medications: Current Medications Acetaminophen (Tylenol 325mg Tab) 650 mg PO Q6 PRN PRN Reason: Fever >100.4 F Artificial Tears (Refresh Opth Soln) 0 ml OD Q6H PRN PRN Reason: Dry eyes Diphenhydramine HCl (Benadryl) 50 mg PO Q8 PRN PRN Reason: Itching / Pruritus Last Admin: 06/17/18 02:56 Dose: 50 mg Docusate Sodium (Colace) 100 mg PO DAILY [facility] Last Admin: 06/23/18 13:21 Dose: 100 mg Enoxaparin Sodium (Lovenox) 60 mg SC Q12 [facility] Last Admin: 06/23/18 10:23 Dose: 60 mg Amino Acids (Clinimix 4.25/5 % "E" (1000 Ml)) 1,000 mls @ 85 mls/hr IV .[id number] ONE Stop: 06/23/18 17:45 Last Admin: 06/23/18 05:23 Dose: 85 mls/hr Fat Emulsion Intravenous (Intralipid 20%) 250 mls @ 42 mls/hr IV QOD@1800 [facility] Stop: 06/28/18 18:01 Last Admin: 06/22/18 18:10 Dose: 42 mls/hr Multivitamins/Vitamin C 10 ml/Chromium/Copper/Manganese/Zinc 1 ml/ Amino Acids 1,011 mls @ 85 mls/hr IV .[id number] ONE Stop: 06/24/18 05:53 Amino Acids (Clinimix 4.25/5 % "E" (1000 Ml)) 1,000 mls @ 85 mls/hr IV .[id number] [facility] Stop: 06/24/18 17:59 Isosorbide Dinitrate (Isordil) 5 mg PO BID [facility] Last Admin: 06/23/18 10:23 Dose: 5 mg Ketorolac Tromethamine (Toradol) 30 mg IVP Q6 [facility] Stop: 06/24/18 00:01 Last Admin: 06/23/18 11:49 Dose: Not Given Levothyroxine Sodium (Synthroid) 175 mcg PO DAILY@0630 [facility] Last Admin: 06/23/18 05:38 Dose: Not Given Lidocaine (Lidoderm) 1 ea TD DAILY [facility] Last Admin: 06/23/18 10:23 Dose: 1 ea Metoclopramide HCl (Reglan) 10 mg IVP Q6H [facility] Last Admin: 06/23/18 10:22 Dose: 10 mg Ondansetron HCl (Zofran Inj) 4 mg IVP Q6 PRN PRN Reason: Nausea/Vomiting Last Admin: 06/23/18 13:25 Dose: 4 mg Pantoprazole Sodium (Protonix Inj) 40 mg IVP Q12H [facility] Last Admin: 06/23/18 05:23 Dose: 40 mg Scopolamine (Transderm-Scop) 1 patch TD Q3D [facility] Last Admin: 06/21/18 09:53 Dose: 1 patch Tramadol HCl (Ultram) 50 mg PO Q6H PRN PRN Reason: Pain, severe (8-10) Last Admin: 06/19/18 10:11 Dose: 50 mg Zolpidem Tartrate (Ambien) 5 mg PO HS PRN PRN Reason: Insomnia Last Admin: 06/20/18 21:25 Dose: 5 mg - Labs Labs: 06/23/18 07:20 06/23/18 07:20 - Constitutional Appears: No Acute Distress - Head Exam Head Exam: ATRAUMATIC, NORMAL INSPECTION, NORMOCEPHALIC - Eye Exam Eye Exam: EOMI, Normal appearance, PERRL Pupil Exam: NORMAL ACCOMODATION, PERRL - ENT Exam ENT Exam: Mucous Membranes Moist - Neck Exam Neck Exam: Full ROM - Respiratory Exam Respiratory Exam: NORMAL BREATHING PATTERN - Cardiovascular Exam Cardiovascular Exam: REGULAR RHYTHM - GI/Abdominal Exam GI & Abdominal Exam: Soft. absent: Distended, Tenderness - Extremities Exam Extremities Exam: Full ROM, Normal Capillary Refill, Normal Inspection. 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 Robins <Landon Robins - Last Filed: 07/02/18 18:01> Objective - Vital Signs/Intake and Output Vital Signs (last 24 hours): Temp Pulse Resp BP Pulse Ox 98.4 F 78 20 108/69 98 07/02/18 15:00 07/02/18 15:00 07/02/18 15:00 07/02/18 15:00 07/02/18 15:00 Intake and Output: 07/02/18 07/02/18 06:59 18:59 Intake Total 598 1921 Output Total 100 150 Balance 498 1771 - Medications Medications: Current Medications Acetaminophen (Tylenol 325mg Tab) 650 mg PO Q6 PRN PRN Reason: Fever >100.4 F Artificial Tears (Refresh Opth Soln) 0 ml OD Q6H PRN PRN Reason: Dry eyes Benzocaine/Menthol (Cepacol Sore Throat) 1 nyasia MT Q2H PRN PRN Reason: Sore Throat Last Admin: 06/27/18 03:01 Dose: 1 nyasia Docusate Sodium (Colace) 100 mg PO DAILY [facility] Last Admin: 06/27/18 10:00 Dose: Not Given Enoxaparin Sodium (Lovenox) 30 mg SC DAILY [facility] Last Admin: 07/02/18 10:09 Dose: 30 mg Meropenem 500 mg/ Sodium (Chloride) 100 mls @ 100 mls/hr IVPB Q8H [facility]; Protocol Last Admin: 07/02/18 14:15 Dose: 100 mls/hr Ferric Sodium Gluconate Complex 125 mg/ Sodium Chloride 110 mls @ 105 mls/hr IVPB QOD [facility] Stop: 07/06/18 11:03 Last Admin: 07/02/18 10:22 Dose: 105 mls/hr Heparin Sodium (Porcine) 1,000 units/ Amino Acids/Electrolytes/Dextrose 1,001 mls @ 83 mls/hr IV .Q12H4M [facility] Stop: 07/02/18 17:59 Multivitamins/Vitamin C 10 ml/Chromium/Copper/Manganese/Zinc 1 ml/ Heparin Sodium ( Porcine) 1,000 units/ Amino Acids/Electrolytes/Dextrose 1,012 mls @ 83 mls/hr IV .[id number] ONE Stop: 07/03/18 06:11 Heparin Sodium (Porcine) 1,000 units/ Amino Acids/Electrolytes/Dextrose 1,001 mls @ 83 mls/hr IV .Q12H4M ONE Stop: 07/03/18 18:03 Fat Emulsion Intravenous (Intralipid 20%) 500 mls @ 42 mls/hr IV DAILY [facility] Stop: 07/03/18 05:54 Isosorbide Dinitrate (Isordil) 5 mg PO BID [facility] Last Admin: 07/02/18 10:12 Dose: Not Given Levothyroxine Sodium (Synthroid) 175 mcg PO DAILY@0630 [facility] Last Admin: 07/02/18 05:30 Dose: 175 mcg Lidocaine (Lidoderm) 1 ea TD DAILY [facility] Last Admin: 07/02/18 10:08 Dose: 1 ea Metoclopramide HCl (Reglan) 10 mg IVP Q6H [facility] Last Admin: 07/02/18 17:14 Dose: 10 mg Morphine Sulfate (Morphine) 4 mg IVP Q4 PRN PRN Reason: Pain, severe (8-10) Morphine Sulfate (Morphine) 2 mg IVP Q4 PRN PRN Reason: Pain, moderate (4-7) Last Admin: 07/02/18 17:14 Dose: 2 mg Ondansetron HCl (Zofran Inj) 4 mg IVP Q6 PRN PRN Reason: Nausea/Vomiting Last Admin: 06/26/18 08:26 Dose: 4 mg Pantoprazole Sodium (Protonix Inj) 40 mg IVP Q12H [facility] Last Admin: 07/02/18 17:13 Dose: 40 mg Phenol/Menthol (Phenaseptic 1.4% Throat [place]) 0 ml MT Q1H PRN PRN Reason: Sore Throat Last Admin: 06/28/18 04:21 Dose: 1 spray Scopolamine (Transderm-Scop) 1 patch TD Q3D [facility] Last Admin: 06/30/18 12:36 Dose: 1 patch Zolpidem Tartrate (Ambien) 5 mg PO HS PRN PRN Reason: Insomnia Last Admin: 06/27/18 02:58 Dose: 5 mg - Labs Labs: 07/02/18 05:51 07/02/18 05:51 PT 16.4 SECONDS (9.7-12.2) H 06/28/18 07:07 INR 1.5 06/28/18 07:07 APTT 32 SECONDS (21-34) 06/23/18 20:54 Attending/Attestation - Attestation I have personally seen and examined this patient.: Yes I have fully participated in the care of the patient.: Yes I have reviewed all pertinent clinical information, including history, physical exam and plan: Yes Notes (Text): Pt was seen and examined at bedside Agree with above note and assessment Pt is improving clinically Passing Gas and liquid BM Pt has post operative ileus Refusing NG tube c/w current mx Plan d.w pt in detail Risk and benefit explained in detail.
[2018-06-23] MEDS ORDERED: PPN#3 IV ONE (18:00)
[2018-06-23 22:07] LABS: INR 1.2; PROTHROMBIN TIME 12.6 SECONDS (9.7-12.2)
[2018-06-24] MEDS: Levothyroxine 175 MCG TAB PO SCH (05:45)
[2018-06-24] MEDS: PPN#4 IV SCH ×2 (05:55→20:46)
[2018-06-24 07:27] LABS: BASO % 0.1 % (0.0-2.0); EOS # 0.1 K/uL (0.0-0.7); EOS % 0.6 % (0.0-4.0); HEMOGLOBIN 13.7 g/dL (11.0-16.0); LYMPH # 2.2 K/uL (1.0-4.3); LYMPH % 10.1 % (20.0-40.0); MEAN CELL VOLUME 86.2 fL (81.0-99.0); MEAN CORPUSCULAR HEMOGLOBIN 30.3 pg (27.0-31.0); MEAN CORPUSCULAR HGB CONC 35.2 g/dL (33.0-37.0); MEAN PLATELET VOLUME 8.7 fL (7.2-11.7); MONO # 1.6 K/uL (0.0-0.8); MONO % 7.3 % (0.0-10.0); NEUT # 18.3 K/uL (1.8-7.0); NEUT % 81.9 % (50.0-75.0); NRBC % 0.2 % (0.0-2.0); RBC 4.53 Mil/uL (3.80-5.20); RED CELL DISTRIBUTION WIDTH 14.7 % (11.5-14.5); WHITE BLOOD COUNT 22.3 K/uL (4.8-10.8)
[2018-06-24 08:34] LABS: ALBUMIN 3.9 g/dL (3.5-5.0); ALT/SGPT 29 U/L (9-52); AST/SGOT 34 U/L (14-36); BLOOD UREA NITROGEN 54 mg/dL (7-17); CALCIUM 8.8 mg/dl (8.6-10.4); GFR NON-AFRICAN AMERICAN > 60
[2018-06-24] MEDS: Piperacill/Tazo 3.375gm in Dex 3.375 GM/50 ML BAG IVPB SCH ×3 (08:42→21:59)
[2018-06-24] MEDS ORDERED: HYDROmorphone 0.5 mg/0.5 ml ISec IVP STA ×2 (08:59→21:27)
[2018-06-24] MEDS: Enoxaparin 60 mg Syringe SC SCH ×2 (09:37→21:59)
[2018-06-24] MEDS: Lidocaine 5% Patch TD SCH (09:45)
[2018-06-24 14:14] LABS: INR 1.3; PROTHROMBIN TIME 13.8 SECONDS (9.7-12.2)
--- NOTE | 2018-06-24 16:09 | CP.PCM.PN ---
<Chaitanya Khan Jak - Last Filed: 06/24/18 16:08> Subjective - Date & Time of Evaluation Date of Evaluation: 06/24/18 Time of Evaluation: 06:45 - Subjective Subjective: Gen Sx: Dr Robins Pt S&E. CARLOSO. Continues to have BMs. No further episodes of emesis. Chief complaint of back pain. Pt is refusing PPN as she wants to go home. Objective - Vital Signs/Intake and Output Vital Signs (last 24 hours): Temp Pulse Resp BP Pulse Ox 98.9 F 110 H 20 109/79 98 06/24/18 08:00 06/24/18 08:00 06/24/18 08:00 06/24/18 08:00 06/24/18 08:00 Intake and Output: 06/24/18 06/24/18 06:59 18:59 Intake Total 1400 400 Balance 1400 400 - Medications Medications: Current Medications Acetaminophen (Tylenol 325mg Tab) 650 mg PO Q6 PRN PRN Reason: Fever >100.4 F Artificial Tears (Refresh Opth Soln) 0 ml OD Q6H PRN PRN Reason: Dry eyes Diphenhydramine HCl (Benadryl) 50 mg PO Q8 PRN PRN Reason: Itching / Pruritus Last Admin: 06/17/18 02:56 Dose: 50 mg Docusate Sodium (Colace) 100 mg PO DAILY [facility] Last Admin: 06/24/18 09:37 Dose: 100 mg Enoxaparin Sodium (Lovenox) 60 mg SC Q12 [facility] Last Admin: 06/24/18 09:37 Dose: 60 mg Fat Emulsion Intravenous (Intralipid 20%) 250 mls @ 42 mls/hr IV QOD@1800 [facility] Stop: 06/28/18 18:01 Last Admin: 06/22/18 18:10 Dose: 42 mls/hr Amino Acids (Clinimix 4.25/5 % "E" (1000 Ml)) 1,000 mls @ 85 mls/hr IV .[id number] [facility] Stop: 06/24/18 17:59 Last Admin: 06/24/18 05:55 Dose: 85 mls/hr Piperacillin Sod/Tazobactam Sod (Zosyn 3.375 Gm Iv Premix) 3.375 gm in 50 mls @ 100 mls/hr IVPB Q6H [facility]; Protocol Last Admin: 06/24/18 13:59 Dose: 100 mls/hr Isosorbide Dinitrate (Isordil) 5 mg PO BID [facility] Last Admin: 06/24/18 09:43 Dose: 5 mg Levothyroxine Sodium (Synthroid) 175 mcg PO DAILY@0630 [facility] Last Admin: 06/24/18 05:45 Dose: 175 mcg Lidocaine (Lidoderm) 1 ea TD DAILY [facility] Last Admin: 06/24/18 09:45 Dose: Not Given Metoclopramide HCl (Reglan) 10 mg IVP Q6H [facility] Last Admin: 06/24/18 09:45 Dose: Not Given Ondansetron HCl (Zofran Inj) 4 mg IVP Q6 PRN PRN Reason: Nausea/Vomiting Last Admin: 06/23/18 13:25 Dose: 4 mg Pantoprazole Sodium (Protonix Inj) 40 mg IVP Q12H [facility] Last Admin: 06/24/18 04:45 Dose: 40 mg Scopolamine (Transderm-Scop) 1 patch TD Q3D [facility] Last Admin: 06/24/18 08:42 Dose: 1 patch Tramadol HCl (Ultram) 50 mg PO Q6H PRN PRN Reason: Pain, severe (8-10) Last Admin: 06/19/18 10:11 Dose: 50 mg Warfarin Sodium (Coumadin) 5 mg PO 1800 [facility] Stop: 06/28/18 18:01 Zolpidem Tartrate (Ambien) 5 mg PO HS PRN PRN Reason: Insomnia Last Admin: 06/20/18 21:25 Dose: 5 mg - Labs Labs: 06/24/18 07:21 06/24/18 08:00 PT 13.8 SECONDS (9.7-12.2) H 06/24/18 13:45 INR 1.3 06/24/18 13:45 APTT 32 SECONDS (21-34) 06/23/18 20:54 - Constitutional Appears: Non-toxic, No Acute Distress - Head Exam Head Exam: NORMAL INSPECTION - Respiratory Exam Respiratory Exam: absent: Respiratory Distress - Cardiovascular Exam Cardiovascular Exam: REGULAR RHYTHM. absent: Tachycardia - GI/Abdominal Exam GI & Abdominal Exam: Soft. absent: Distended, Tenderness Assessment and Plan - Assessment and Plan (Free Text) Assessment: 33F s/p subtotal colectomy Plan: daily INR - goal of 2-3 coumadin 5mg HS cont liquid diet OOB and ambulate d/w Dr Robins <Landon Robins - Last Filed: 07/02/18 17:50> Objective - Vital Signs/Intake and Output Vital Signs (last 24 hours): Temp Pulse Resp BP Pulse Ox 98.4 F 78 20 108/69 98 07/02/18 15:00 07/02/18 15:00 07/02/18 15:00 07/02/18 15:00 07/02/18 15:00 Intake and Output: 07/02/18 07/02/18 06:59 18:59 Intake Total 598 1921 Output Total 100 150 Balance 498 1771 - Medications Medications: Current Medications Acetaminophen (Tylenol 325mg Tab) 650 mg PO Q6 PRN PRN Reason: Fever >100.4 F Artificial Tears (Refresh Opth Soln) 0 ml OD Q6H PRN PRN Reason: Dry eyes Benzocaine/Menthol (Cepacol Sore Throat) 1 nyasia MT Q2H PRN PRN Reason: Sore Throat Last Admin: 06/27/18 03:01 Dose: 1 nyasia Docusate Sodium (Colace) 100 mg PO DAILY [facility] Last Admin: 06/27/18 10:00 Dose: Not Given Enoxaparin Sodium (Lovenox) 30 mg SC DAILY [facility] Last Admin: 07/02/18 10:09 Dose: 30 mg Meropenem 500 mg/ Sodium (Chloride) 100 mls @ 100 mls/hr IVPB Q8H [facility]; Protocol Last Admin: 07/02/18 14:15 Dose: 100 mls/hr Ferric Sodium Gluconate Complex 125 mg/ Sodium Chloride 110 mls @ 105 mls/hr IVPB QOD [facility] Stop: 07/06/18 11:03 Last Admin: 07/02/18 10:22 Dose: 105 mls/hr Heparin Sodium (Porcine) 1,000 units/ Amino Acids/Electrolytes/Dextrose 1,001 mls @ 83 mls/hr IV .Q12H4M [facility] Stop: 07/02/18 17:59 Multivitamins/Vitamin C 10 ml/Chromium/Copper/Manganese/Zinc 1 ml/ Heparin Sodium ( Porcine) 1,000 units/ Amino Acids/Electrolytes/Dextrose 1,012 mls @ 83 mls/hr IV .[id number] ONE Stop: 07/03/18 06:11 Heparin Sodium (Porcine) 1,000 units/ Amino Acids/Electrolytes/Dextrose 1,001 mls @ 83 mls/hr IV .Q12H4M ONE Stop: 07/03/18 18:03 Fat Emulsion Intravenous (Intralipid 20%) 500 mls @ 42 mls/hr IV DAILY [facility] Stop: 07/03/18 05:54 Isosorbide Dinitrate (Isordil) 5 mg PO BID [facility] Last Admin: 07/02/18 10:12 Dose: Not Given Levothyroxine Sodium (Synthroid) 175 mcg PO DAILY@0630 [facility] Last Admin: 07/02/18 05:30 Dose: 175 mcg Lidocaine (Lidoderm) 1 ea TD DAILY [facility] Last Admin: 07/02/18 10:08 Dose: 1 ea Metoclopramide HCl (Reglan) 10 mg IVP Q6H [facility] Last Admin: 07/02/18 17:14 Dose: 10 mg Morphine Sulfate (Morphine) 4 mg IVP Q4 PRN PRN Reason: Pain, severe (8-10) Morphine Sulfate (Morphine) 2 mg IVP Q4 PRN PRN Reason: Pain, moderate (4-7) Last Admin: 07/02/18 17:14 Dose: 2 mg Ondansetron HCl (Zofran Inj) 4 mg IVP Q6 PRN PRN Reason: Nausea/Vomiting Last Admin: 06/26/18 08:26 Dose: 4 mg Pantoprazole Sodium (Protonix Inj) 40 mg IVP Q12H [facility] Last Admin: 07/02/18 17:13 Dose: 40 mg Phenol/Menthol (Phenaseptic 1.4% Throat [place]) 0 ml MT Q1H PRN PRN Reason: Sore Throat Last Admin: 06/28/18 04:21 Dose: 1 spray Scopolamine (Transderm-Scop) 1 patch TD Q3D [facility] Last Admin: 06/30/18 12:36 Dose: 1 patch Zolpidem Tartrate (Ambien) 5 mg PO HS PRN PRN Reason: Insomnia Last Admin: 06/27/18 02:58 Dose: 5 mg - Labs Labs: 07/02/18 05:51 07/02/18 05:51 PT 16.4 SECONDS (9.7-12.2) H 06/28/18 07:07 INR 1.5 06/28/18 07:07 APTT 32 SECONDS (21-34) 06/23/18 20:54 Attending/Attestation - Attestation I have fully participated in the care of the patient.: Yes I have reviewed all pertinent clinical information, including history, physical exam and plan: Yes Notes (Text): Pt with post operative ileus Refusing NG tube c/w current mx CT scan of A/P in am Plan d.w pt in detail
[2018-06-24] MEDS ORDERED: PPN #5 IV ONE (18:00)
[2018-06-24] MEDS: Fat Emulsion 20% IV 250 ML IV SCH (19:08)
[2018-06-25] MEDS: Piperacill/Tazo 3.375gm in Dex 3.375 GM/50 ML BAG IVPB SCH ×2 (03:31→08:48)
[2018-06-25] MEDS ORDERED: HYDROmorphone 0.5 mg/0.5 ml ISec IVP STA (03:58)
[2018-06-25] MEDS: Levothyroxine 175 MCG TAB PO SCH (05:48)
[2018-06-25] MEDS ORDERED: PPN #6 IV ONE (06:00)
[2018-06-25 07:19] LABS: BASO % 0.1 % (0.0-2.0); EOS % 0.1 % (0.0-4.0); LYMPH # 1.7 K/uL (1.0-4.3); LYMPH % 5.8 % (20.0-40.0); MEAN CELL VOLUME 86.5 fL (81.0-99.0); MEAN CORPUSCULAR HEMOGLOBIN 29.4 pg (27.0-31.0); MEAN PLATELET VOLUME 8.6 fL (7.2-11.7); MONO # 1.1 K/uL (0.0-0.8); MONO % 3.6 % (0.0-10.0); NEUT % 90.4 % (50.0-75.0); PLATELET COUNT 622 K/uL (130-400); RBC 4.76 Mil/uL (3.80-5.20); RED CELL DISTRIBUTION WIDTH 14.8 % (11.5-14.5); WHITE BLOOD COUNT 29.9 K/uL (4.8-10.8)
[2018-06-25 07:23] LABS: INR 2.8; PROTHROMBIN TIME 30.2 SECONDS (9.7-12.2)
--- NOTE | 2018-06-25 07:29 | CP.PCM.PN ---
<Marcella Hopper - Last Filed: 06/26/18 10:53> Subjective - Date & Time of Evaluation Date of Evaluation: 06/25/18 Time of Evaluation: 06:30 - Subjective Subjective: General Surgery progress note for Dr. Robins Pt seen and examined this AM. Patient had some nausea and vomiting green/yellow fluid overnight, also complains of back pain that she reports is only controlled by dilaudid IV and is refusing PO pain medications. Having liquid bowel movements and passing gas Objective - Vital Signs/Intake and Output Vital Signs (last 24 hours): Temp Pulse Resp BP Pulse Ox 97.6 F 109 H 20 94/69 L 94 L 06/25/18 00:00 06/25/18 00:00 06/25/18 00:00 06/25/18 00:00 06/25/18 00:00 Intake and Output: 06/25/18 06/25/18 06:59 18:59 Intake Total 500 Balance 500 - Medications Medications: Current Medications Acetaminophen (Tylenol 325mg Tab) 650 mg PO Q6 PRN PRN Reason: Fever >100.4 F Artificial Tears (Refresh Opth Soln) 0 ml OD Q6H PRN PRN Reason: Dry eyes Diphenhydramine HCl (Benadryl) 50 mg PO Q8 PRN PRN Reason: Itching / Pruritus Last Admin: 06/17/18 02:56 Dose: 50 mg Docusate Sodium (Colace) 100 mg PO DAILY [facility] Last Admin: 06/24/18 09:37 Dose: 100 mg Enoxaparin Sodium (Lovenox) 60 mg SC Q12 [facility] Last Admin: 06/24/18 21:59 Dose: 60 mg Fat Emulsion Intravenous (Intralipid 20%) 250 mls @ 42 mls/hr IV QOD@1800 [facility] Stop: 06/28/18 18:01 Last Admin: 06/24/18 19:08 Dose: Not Given Piperacillin Sod/Tazobactam Sod (Zosyn 3.375 Gm Iv Premix) 3.375 gm in 50 mls @ 100 mls/hr IVPB Q6H [facility]; Protocol Last Admin: 06/25/18 03:31 Dose: 100 mls/hr Isosorbide Dinitrate (Isordil) 5 mg PO BID [facility] Last Admin: 06/24/18 17:35 Dose: 5 mg Levothyroxine Sodium (Synthroid) 175 mcg PO DAILY@0630 [facility] Last Admin: 06/25/18 05:48 Dose: Not Given Lidocaine (Lidoderm) 1 ea TD DAILY [facility] Last Admin: 06/24/18 09:45 Dose: Not Given Metoclopramide HCl (Reglan) 10 mg IVP Q6H [facility] Last Admin: 06/25/18 03:55 Dose: 10 mg Ondansetron HCl (Zofran Inj) 4 mg IVP Q6 PRN PRN Reason: Nausea/Vomiting Last Admin: 06/25/18 03:54 Dose: 4 mg Pantoprazole Sodium (Protonix Inj) 40 mg IVP Q12H [facility] Last Admin: 06/25/18 04:21 Dose: 40 mg Scopolamine (Transderm-Scop) 1 patch TD Q3D [facility] Last Admin: 06/24/18 08:42 Dose: 1 patch Tramadol HCl (Ultram) 50 mg PO Q6H PRN PRN Reason: Pain, severe (8-10) Last Admin: 06/25/18 02:23 Dose: 50 mg Warfarin Sodium (Coumadin) 5 mg PO 1800 [facility] Stop: 06/28/18 18:01 Last Admin: 06/24/18 17:35 Dose: 5 mg Zolpidem Tartrate (Ambien) 5 mg PO HS PRN PRN Reason: Insomnia Last Admin: 06/20/18 21:25 Dose: 5 mg - Labs Labs: 06/25/18 07:13 06/24/18 08:00 PT 30.2 SECONDS (9.7-12.2) H D 06/25/18 07:13 INR 2.8 D 06/25/18 07:13 APTT 32 SECONDS (21-34) 06/23/18 20:54 - Constitutional Appears: Well, Non-toxic, No Acute Distress - Head Exam Head Exam: ATRAUMATIC, NORMOCEPHALIC - Eye Exam Eye Exam: Normal appearance. absent: Conjunctival injection, Scleral icterus - ENT Exam ENT Exam: Mucous Membranes Moist, Normal Oropharynx - Respiratory Exam Respiratory Exam: NORMAL BREATHING PATTERN. absent: Accessory Muscle Use, Respiratory Distress - Cardiovascular Exam Cardiovascular Exam: RRR - GI/Abdominal Exam GI & Abdominal Exam: Soft. absent: Distended, Tenderness Additional comments: midline incision draining moderate amount of sanguinous fluid, no surrounding erythema or fluctuance - Extremities Exam Extremities Exam: absent: Calf Tenderness, Pedal Edema, Tenderness - Neurological Exam Neurological Exam: Alert, Awake - Psychiatric Exam Psychiatric exam: Flat Affect, Normal Mood - Skin Skin Exam: Dry, Normal Color, Warm Assessment and Plan - Assessment and Plan (Free Text) Assessment: 33F POD#14 s/p subtotal colectomy with primary anastamosis Plan: Continue PPN Continue ice chips as tolerated Patient refuses NGT for nausea and vomiting--will continue to attempt placement Continue to trend CBC, BMP, INR Replete electrolytes as needed Antibiotics for leukocytosis PRN pain and nausea medication Discussed with Dr. Robins <Landon Robins - Last Filed: 07/02/18 17:52> Objective - Vital Signs/Intake and Output Vital Signs (last 24 hours): Temp Pulse Resp BP Pulse Ox 98.4 F 78 20 108/69 98 07/02/18 15:00 07/02/18 15:00 07/02/18 15:00 07/02/18 15:00 07/02/18 15:00 Intake and Output: 07/02/18 07/02/18 06:59 18:59 Intake Total 598 1921 Output Total 100 150 Balance 498 1771 - Medications Medications: Current Medications Acetaminophen (Tylenol 325mg Tab) 650 mg PO Q6 PRN PRN Reason: Fever >100.4 F Artificial Tears (Refresh Opth Soln) 0 ml OD Q6H PRN PRN Reason: Dry eyes Benzocaine/Menthol (Cepacol Sore Throat) 1 nyasia MT Q2H PRN PRN Reason: Sore Throat Last Admin: 06/27/18 03:01 Dose: 1 nyasia Docusate Sodium (Colace) 100 mg PO DAILY [facility] Last Admin: 06/27/18 10:00 Dose: Not Given Enoxaparin Sodium (Lovenox) 30 mg SC DAILY [facility] Last Admin: 07/02/18 10:09 Dose: 30 mg Meropenem 500 mg/ Sodium (Chloride) 100 mls @ 100 mls/hr IVPB Q8H [facility]; Protocol Last Admin: 07/02/18 14:15 Dose: 100 mls/hr Ferric Sodium Gluconate Complex 125 mg/ Sodium Chloride 110 mls @ 105 mls/hr I VPB QOD [facility] Stop: 07/06/18 11:03 Last Admin: 07/02/18 10:22 Dose: 105 mls/hr Heparin Sodium (Porcine) 1,000 units/ Amino Acids/Electrolytes/Dextrose 1,001 mls @ 83 mls/hr IV .Q12H4M [facility] Stop: 07/02/18 17:59 Multivitamins/Vitamin C 10 ml/Chromium/Copper/Manganese/Zinc 1 ml/ Heparin Sodium ( Porcine) 1,000 units/ Amino Acids/Electrolytes/Dextrose 1,012 mls @ 83 mls/hr IV .[id number] ONE Stop: 07/03/18 06:11 Heparin Sodium (Porcine) 1,000 units/ Amino Acids/Electrolytes/Dextrose 1,001 mls @ 83 mls/hr IV .Q12H4M ONE Stop: 07/03/18 18:03 Fat Emulsion Intravenous (Intralipid 20%) 500 mls @ 42 mls/hr IV DAILY [facility] Stop: 07/03/18 05:54 Isosorbide Dinitrate (Isordil) 5 mg PO BID [facility] Last Admin: 07/02/18 10:12 Dose: Not Given Levothyroxine Sodium (Synthroid) 175 mcg PO DAILY@0630 [facility] Last Admin: 07/02/18 05:30 Dose: 175 mcg Lidocaine (Lidoderm) 1 ea TD DAILY [facility] Last Admin: 07/02/18 10:08 Dose: 1 ea Metoclopramide HCl (Reglan) 10 mg IVP Q6H [facility] Last Admin: 07/02/18 17:14 Dose: 10 mg Morphine Sulfate (Morphine) 4 mg IVP Q4 PRN PRN Reason: Pain, severe (8-10) Morphine Sulfate (Morphine) 2 mg IVP Q4 PRN PRN Reason: Pain, moderate (4-7) Last Admin: 07/02/18 17:14 Dose: 2 mg Ondansetron HCl (Zofran Inj) 4 mg IVP Q6 PRN PRN Reason: Nausea/Vomiting Last Admin: 06/26/18 08:26 Dose: 4 mg Pantoprazole Sodium (Protonix Inj) 40 mg IVP Q12H [facility] Last Admin: 07/02/18 17:13 Dose: 40 mg Phenol/Menthol (Phenaseptic 1.4% Throat Robert Lee) 0 ml MT Q1H PRN PRN Reason: Sore Throat Last Admin: 06/28/18 04:21 Dose: 1 spray Scopolamine (Transderm-Scop) 1 patch TD Q3D [facility] Last Admin: 06/30/18 12:36 Dose: 1 patch Zolpidem Tartrate (Ambien) 5 mg PO HS PRN PRN Reason: Insomnia Last Admin: 06/27/18 02:58 Dose: 5 mg - Labs Labs: 07/02/18 05:51 07/02/18 05:51 PT 16.4 SECONDS (9.7-12.2) H 06/28/18 07:07 INR 1.5 06/28/18 07:07 APTT 32 SECONDS (21-34) 06/23/18 20:54 Attending/Attestation - Attestation I have personally seen and examined this patient.: Yes I have fully participated in the care of the patient.: Yes I have reviewed all pertinent clinical information, including history, physical exam and plan: Yes Notes (Text): Pt was seen and examined at bedside Agree with above note and assessment Pt has more abdominal pain CT scan of A/P suggestive of Pneumoperitoneum INR is 6.2 No surgical intervention at present untill correction of INR ID consult IV Hydration NG tube to LIS NPO, PPN Plan d.w pt in detail Risk and benefit explained in detail.
[2018-06-25 08:16] LABS: SQUAMOUS EPITHIAL 1 /hpf (0-5); URINE BACTERIA OCC (<OCC); URINE BILIRUBIN NEGATIVE (NEGATIVE); URINE BLOOD 3+ (NEGATIVE); URINE CLARITY Hazy (Clear); URINE COLOR Amber (YELLOW); URINE GLUCOSE (UA) NORMAL (Normal); URINE LEUKOCYTE ESTERASE NEG Leu/uL (Negative); URINE PROTEIN 1+ mg/dL (NEGATIVE); URINE UROBILINOGEN NORMAL mg/dL (0.2-1.0)
[2018-06-25] MEDS: Enoxaparin 30 mg Syringe SC SCH ×2 (09:04→11:48)
[2018-06-25] MEDS: Lidocaine 5% Patch TD SCH (09:05)
--- NOTE | 2018-06-25 09:09 | RAD ---
Date of service: 06/25/2018 HISTORY: leukocytosis, vomiting, ?aspiration COMPARISON: 06/22/2018. FINDINGS: LUNGS: The lungs are clear. PLEURA: No significant pleural effusion identified, no pneumothorax apparent. CARDIOVASCULAR: Normal. OSSEOUS STRUCTURES: No significant abnormalities. VISUALIZED UPPER ABDOMEN: Normal. OTHER FINDINGS: There is free air under the diaphragms. There is also severe distension of small bowel loops. IMPRESSION: No active pulmonary disease. Pneumoperitoneum and dilated small bowel loops. Although these findings could be related to postoperative status, clinical follow-up is advised and if clinically indicated CT scan is recommended for further evaluation. Important findings were discussed with nurse Elizabeth España on the floor on 06/25/2018 at 9 a.m.
[2018-06-25 09:57] LABS: BANDS 14 % (0-2); LYMPHOCYTE 3 % (20-40); MONOCYTE 4 % (0-10); MYELOCYTE 1 % (0-0); PLATELET ESTIMATE INCREASED (NORMAL); TOTAL CELLS COUNTED 100
[2018-06-25 09:58] LABS: METAMYELOCYTE 1 % (0-0); NEUTROPHIL 77 % (50-75)
[2018-06-25] MEDS ORDERED: Enoxaparin 30 mg Syringe SC SCH (10:00)
[2018-06-25] MEDS ORDERED: metroNIDAZOLE IV 500 mg/100 ml 500 MG/100 ML BAG IVPB STA (10:11)
[2018-06-25] MEDS ORDERED: Enoxaparin 60 mg Syringe SC SCH ×2 (10:15→10:30)
[2018-06-25] MEDS ORDERED: Iodixanol 320 MG/ML 100 ML BOTTLE IV ONE (12:19)
[2018-06-25 12:20] LABS: ALBUMIN 4.4 g/dL (3.5-5.0); CALCIUM 8.4 mg/dl (8.6-10.4)
[2018-06-25] MEDS ORDERED: Calcium Chloride 1000 mg/10 ml Syringe IV ONE (12:26)
[2018-06-25] MEDS ORDERED: (Novolin R) Insulin Human Regular 100 units/ml vial IVP ONE ×2 (12:28→14:00)
[2018-06-25] MEDS ORDERED: Dextrose 50% SYRINGE Inj (50 ml) IV ONE ×2 (13:00→14:15)
--- NOTE | 2018-06-25 13:05 | CP.PCM.CON ---
History of Present Illness - History of Present Illness History of Present Illness: 33 yo female admitted for colectomy due to immotility post op had portal vein thrombosis , now mario leukocytosis and ileus now iv antibiotics ordered Review of Systems - Constitutional Constitutional: As Per HPI - EENT Eyes: absent: As Per HPI, Blind Spots, Blurred Vision, Change in Vision, Decreased Night Vision, Diplopia, Discharge, Dry Eye, Exophthalmos, Floaters, Irritation, Itchy Eyes, Loss of Peripheral Vision, Pain, Photophobia, Requires Corrective Lenses, Sees Flashes, Spots in Vision, Tunnel Vision, Other Visual Disturbances, Loss of Vision, Other Ears: absent: As Per HPI, Decreased Hearing, Ear Discharge, Ear Pain, Tinnitus, Abnormal Hearing, Disequilibrium, Dizziness, Other Nose/Mouth/Throat: absent: As Per HPI, Epistaxis, Nasal Congestion, Nasal Discharge, Nasal Obstruction, Nasal Trauma, Nose Pain, Post Nasal Drip, Sinus Pain, Sinus Pressure, Bleeding Gums, Change in Voice, Dental Pain, Dry Mouth, Dysphagia, Halitosis, Hoarsness, Lip Swelling, Mouth Lesions, Mouth Pain, Odynophagia, Sore Throat, Throat Swelling, Tongue Swelling, Facial Pain, Neck P ain, Neck Mass, Other - Breasts Breasts: absent: As Per HPI, Change in Shape, Mass, Pain, Nipple Discharge, Nipple Inversion, Skin Changes, Swelling, Other - Cardiovascular Cardiovascular: absent: As Per HPI, Acrocyanosis, Chest Pain, Chest Pain at Rest, Chest Pain with Activity, Claudication, Diaphoresis, Dyspnea, Dyspnea on Exertion, Edema, Irregular Heart Rhythm, Pain Radiating to Arm/Neck/Jaw, Leg Edema, Leg Ulcers, Lightheadedness, Orthopnea, Palpitations, Paroxysmal Nocturnal Dyspnea, Pedal Edema, Radiating Pain, Rapid Heart Rate, Slow Heart Rate, Syncope, Other - Respiratory Respiratory: absent: As Per HPI, Cough, Dyspnea, Hemoptysis, Dyspnea on Exertion, Wheezing, Snoring, Stridor, Pain on Inspiration, Chest Congestion, Excessive Mucous Production, Change in Mucous Color, Pain with Coughing, Other - Gastrointestinal Gastrointestinal: As Per HPI - Genitourinary Genitourinary: absent: As Per HPI, Change in Urinary Stream, Difficulty Urinating, Dysuria, Flank Pain, Hematuria, Pyuria, Nocturia, Urinary Incontinence, Urinary Frequency, Urinary Hesitance, Urinary Urgency, Voiding Freq/Small Amts, Freq UTI, Hx Renal/Bladder Calculi, Hx /Renal Surgery, Bladder Distension, Other - Reproductive: Female Reproductive:Female: absent: As Per HPI, Amenorrhea, Amenorrhea/ Control, Currently Menstual, Cycle <21 Days, Cycle >35 Days, Cycle Variable, Menses 1-7 Days, Menses >/= 8 Days, Menses Variable, Cycle > 4 Weeks Between, No Menses for 6 Months, Heavy Menses, Light Menses, Normal Menses, Spotting Between Cycles, S/P Hysterectomy, Menopausal, Post Menopausal, Premenarche, Abnormal Vaginal Bleeding, Dysmenorrhea, Dyspareunia, Genital Lesions, Genital Pruritis, Pelvic Pain, Prolapse Symptoms, Sexual Dysfunction, Vaginal Discharge, Vaginal Dryness, Vaginal Odor, Vaginal Pruritis, Other - Menstruation Menstruation: absent: As Per HPI, Amenorrhea, Amenorrhea/ Control, Currently Menstual, Cycle <21 Days, Cycle >35 Days, Cycle Variable, Menses 1-7 Days, Menses >/= 8 Days, Menses Variable, Cycle > 4 Weeks Between, No Menses for 6 Months, Heavy Menses, Light Menses, Normal Menses, Spotting Between Cycles, S/P Hysterectomy, Menopausal, Post Menopausal, Premenarche, Abnormal Vaginal Bleeding, Dysmenorrhea, Other - Musculoskeletal Musculoskeletal: absent: As Per HPI, Abnormal Gait, Arthralgias, Atrophy, Back Pain, Deformity, Joint Swelling, Limited Range of Motion, Loss of Height, Muscle Cramps, Muscle Weakness, Myalgias, Neck Pain, Numbness, Radiating Pain into Limb, Stiffness, Tingling, Other - Integumentary Integumentary: absent: As Per HPI, Acne, Alopecia, Bleeding Lesions, Change in Hair, Change in Nails, Change in Pigmentation, Changing Lesions, Dry Skin, Erythema, Furuncle, Hirsutism, Lesions, New Lesions, Non-Healing Lesions, Photosensitivity, Pruritus, Rash, Skin Pain, Skin Ulcer, Sores, Striae, Swelling, Unusual Bruising, Wounds, Jaundice, Other - Neurological Neurological: absent: As Per HPI, Abnormal Gait, Abnormal Hearing, Abnormal Movements, Abnormal Speech, Behavioral Changes, Burning Sensations, Confusion, Convulsions, Disequilibrium, Dizziness, Numbness, Focal Weakness, Frequent Falls, Headaches, Lack of Coordination, Loss of Vision, Memory Loss, Paresthesias, Radicular Pain, Restless Legs, Sensory Deficit, Syncope, Tingling, Tremor, Vertigo, Weakness, Other Visual Disturbances, Other - Psychiatric Psychiatric: absent: As Per HPI, Abnormal Sleep Pattern, Anhedonia, Anxiety, Auditory Hallucinations, Behavioral Changes, Change in Appetite, Change in Libido, Confusion, Depression, Difficulty Concentrating, Hallucinations, Homicidal Ideation, Hopelessness, Irritability, Memory Loss, Mood Swings, Panic Attacks, Paranoia, Suicidal Ideation, Visual Hallucinations, Tactile Hallucinations, Other - Endocrine Endocrine: absent: As Per HPI, Change in Body Appearance, Change in Libido, Cold Intolorance, Deepening of Voice, Excessive Sweating, Fatigue, Flushing, Heat Intolorance, Increase in Ring/Shoe/Hat Size, Palpitations, Polydipsia, Polyphagia, Polyuria, Other - Hematologic/Lymphatic Hematologic: absent: As Per HPI, Easy Bleeding, Easy Bruising, Lymphadenopathy, Other Past Patient History - Infectious Disease Hx of Infectious Diseases: None - Past Medical History & Family History Past Medical History?: Yes - Past Social History Smoking Status: Never Smoked - NEUROLOGICAL Hx Neurological Disorder: Yes Hx Migraine: Yes - ENDOCRINE/METABOLIC Hx Hypothyroidism: Yes - MUSCULOSKELETAL/RHEUMATOLOGICAL Hx Musculoskeletal Disorders: Yes Hx Back Pain: Yes Hx Falls: No - GASTROINTESTINAL Hx Gastrointestinal Disorders: Yes Hx Bowel Surgery: Yes (PARTIAL COLECTOMY) Other/Comment: CHRONIC CONSTIPATION, CHAGAS SYNDROME, ACHALASIA - PSYCHIATRIC Hx Psychophysiologic Disorder: Yes Hx Substance Use: No - SURGICAL HISTORY Hx Surgeries: Yes Other/Comment: OPERATION ON THE INTESTINE PT HAD CHRONIC CONSTIPATION AND HAD PARTIAL REMOVAL OF COLON - ANESTHESIA Hx Anesthesia: Yes Hx Anesthesia Reactions: No Hx Malignant Hyperthermia: No Has any member of the family had a problem w/ anesthesia?: No Meds Allergies/Adverse Reactions: Allergies Allergy/AdvReac Type Severity Reaction Status Date / Time No Known Allergies Allergy Verified 05/16/18 10:37 - Medications Medications: Current Medications Acetaminophen (Tylenol 325mg Tab) 650 mg PO Q6 PRN PRN Reason: Fever >100.4 F Artificial Tears (Refresh Opth Soln) 0 ml OD Q6H PRN PRN Reason: Dry eyes Calcium Chloride (Calcium Chloride) 1,000 mg IV ONCE ONE Stop: 06/25/18 12:27 Dextrose (Dextrose 50% Inj) 50 ml IV ONCE ONE Stop: 06/25/18 13:01 Diphenhydramine HCl (Benadryl) 50 mg PO Q8 PRN PRN Reason: Itching / Pruritus Last Admin: 06/17/18 02:56 Dose: 50 mg Docusate Sodium (Colace) 100 mg PO DAILY [facility] Last Admin: 06/25/18 09:04 Dose: 100 mg Enoxaparin Sodium (Lovenox) 60 mg SC Q12 [facility] Last Admin: 06/25/18 10:46 Dose: 60 mg Hydromorphone HCl (Dilaudid) 0.5 mg IVP Q4H PRN PRN Reason: Pain, severe (8-10) Fat Emulsion Intravenous (Intralipid 20%) 250 mls @ 42 mls/hr IV QOD@1800 [facility] Stop: 06/28/18 18:01 Last Admin: 06/24/18 19:08 Dose: Not Given Piperacillin Sod/Tazobactam Sod (Zosyn 3.375 Gm Iv Premix) 3.375 gm in 50 mls @ 100 mls/hr IVPB Q6H [facility]; Protocol Last Admin: 06/25/18 08:48 Dose: 100 mls/hr Metronidazole (Flagyl) 500 mg in 100 mls @ 100 mls/hr IVPB Q8H [facility]; Protocol Isosorbide Dinitrate (Isordil) 5 mg PO BID [facility] Last Admin: 06/25/18 09:04 Dose: 5 mg Levothyroxine Sodium (Synthroid) 175 mcg PO DAILY@0630 [facility] Last Admin: 06/25/18 05:48 Dose: Not Given Lidocaine (Lidoderm) 1 ea TD DAILY [facility] Last Admin: 06/25/18 09:05 Dose: Not Given Metoclopramide HCl (Reglan) 10 mg IVP Q6H [facility] Last Admin: 06/25/18 09:36 Dose: Not Given Ondansetron HCl (Zofran Inj) 4 mg IVP Q6 PRN PRN Reason: Nausea/Vomiting Last Admin: 06/25/18 03:54 Dose: 4 mg Pantoprazole Sodium (Protonix Inj) 40 mg IVP Q12H [facility] Last Admin: 06/25/18 04:21 Dose: 40 mg Scopolamine (Transderm-Scop) 1 patch TD Q3D [facility] Last Admin: 06/24/18 08:42 Dose: 1 patch Tramadol HCl (Ultram) 50 mg PO Q6H PRN PRN Reason: Pain, moderate (4-7) Warfarin Sodium (Coumadin) 5 mg PO 1800 [facility] Stop: 06/28/18 18:01 Last Admin: 06/24/18 17:35 Dose: 5 mg Zolpidem Tartrate (Ambien) 5 mg PO HS PRN PRN Reason: Insomnia Last Admin: 06/20/18 21:25 Dose: 5 mg Physical Exam - Constitutional Appears: Non-toxic, Cachectic, Chronically Ill - Head Exam Head Exam: NORMOCEPHALIC - Eye Exam Eye Exam: PERRL. absent: Scleral icterus - ENT Exam ENT Exam: Mucous Membranes Dry, Normal External Ear Exam - Neck Exam Neck exam: Negative for: Lymphadenopathy - Respiratory Exam Respiratory Exam: Decreased Breath Sounds - Cardiovascular Exam Cardiovascular Exam: REGULAR RHYTHM - GI/Abdominal Exam GI & Abdominal Exam: Diminished Bowel Sounds, Distended, Guarding. absent: Rebound - Rectal Exam Rectal Exam: Deferred - Exam Exam: NORMAL INSPECTION - Extremities Exam Extremities exam: Negative for: pedal edema - Back Exam Back exam: absent: CVA tenderness (L), CVA tenderness (R) - Neurological Exam Neurological exam: Alert, CN II-XII Intact, Oriented x3, Reflexes Normal - Psychiatric Exam Psychiatric exam: Depressed - Skin Skin Exam: Dry Results - Vital Signs Recent Vital Signs: Last Vital Signs Temp 97.4 F L 06/25/18 07:52 Pulse 96 H 06/25/18 07:52 Resp 20 06/25/18 07:52 BP 103/74 06/25/18 07:52 Pulse Ox 96 06/25/18 07:52 - Labs Result Diagrams: 06/26/18 07:54 06/26/18 07:54 Labs: Laboratory Results - last 24 hr 06/24/18 06/24/18 06/25/18 13:45 19:46 07:13 WBC 29.9 H RBC 4.76 Hgb 14.0 Hct 41.2 MCV 86.5 MCH 29.4 MCHC 34.0 RDW 14.8 H Plt Count 622 H MPV 8.6 Neut % (Auto) 90.4 H Lymph % (Auto) 5.8 L Emmons % (Auto) 3.6 Eos % (Auto) 0.1 Baso % (Auto) 0.1 Neut # (Auto) 27.0 H Lymph # (Auto) 1.7 Emmons # (Auto) 1.1 H Eos # (Auto) 0.0 Baso # (Auto) 0.0 Neutrophils % (Manual) 77 H Band Neutrophils % 14 H* Lymphocytes % (Manual) 3 L Monocytes % (Manual) 4 Metamyelocytes % 1 H Myelocytes % 1 H Platelet Estimate Increased H RBC Morphology Normal PT 13.8 H INR 1.3 Sodium Potassium Chloride Carbon Dioxide Anion Gap BUN Creatinine Est GFR ( Amer) Est GFR (Non-Af Amer) POC Glucose (mg/dL) 121 H Random Glucose Calcium Phosphorus Magnesium Total Bilirubin AST ALT Alkaline Phosphatase Total Protein Albumin Globulin Albumin/Globulin Ratio Urine Color Urine Clarity Urine pH Ur Specific [place] Urine Protein Urine Glucose (UA) Urine Ketones Urine Blood Urine Nitrate Urine Bilirubin Urine Urobilinogen Ur Leukocyte Esterase Urine WBC (Auto) Urine RBC (Auto) Ur Squamous Epith Cells Urine Bacteria Urine HCG, Qual 06/25/18 06/25/18 06/25/18 07:13 08:00 11:05 WBC RBC Hgb Hct MCV MCH MCHC RDW Plt Count MPV Neut % (Auto) Lymph % (Auto) Emmons % (Auto) Eos % (Auto) Baso % (Auto) Neut # (Auto) Lymph # (Auto) Emmons # (Auto) Eos # (Auto) Baso # (Auto) Neutrophils % (Manual) Band Neutrophils % Lymphocytes % (Manual) Monocytes % (Manual) Metamyelocytes % Myelocytes % Platelet Estimate RBC Morphology PT 30.2 H D INR 2.8 D Sodium Potassium Chloride Carbon Dioxide Anion Gap BUN Creatinine Est GFR ( Amer) Est GFR (Non-Af Amer) POC Glucose (mg/dL) Random Glucose Calcium Phosphorus Magnesium Total Bilirubin AST ALT Alkaline Phosphatase Total Protein Albumin Globulin Albumin/Globulin Ratio Urine Color Lois Urine Clarity Hazy Urine pH 5.0 Ur Specific [place] 1.004 Urine Protein 1+ H Urine Glucose (UA) Normal Urine Ketones Negative Urine Blood 3+ H Urine Nitrate Negative Urine Bilirubin Negative Urine Urobilinogen Normal Ur Leukocyte Esterase Neg Urine WBC (Auto) 4 Urine RBC (Auto) 14 H Ur Squamous Epith Cells 1 Urine Bacteria Occ H Urine HCG, Qual Negative 06/25/18 06/25/18 11:09 11:24 WBC RBC Hgb Hct MCV MCH MCHC RDW Plt Count MPV Neut % (Auto) Lymph % (Auto) [place] % (Auto) Eos % (Auto) Baso % (Auto) Neut # (Auto) Lymph # (Auto) [place] # (Auto) Eos # (Auto) Baso # (Auto) Neutrophils % (Manual) Band Neutrophils % Lymphocytes % (Manual) Monocytes % (Manual) Metamyelocytes % Myelocytes % Platelet Estimate RBC Morphology PT INR Sodium 127 L Potassium 6.2 H* Chloride 90 L Carbon Dioxide 16 L Anion Gap 28 H BUN 65 H Creatinine 3.1 H Est GFR ( Amer) 21 Est GFR (Non-Af Amer) 17 POC Glucose (mg/dL) 143 H Random Glucose 113 H Calcium 8.4 L Phosphorus 9.8 H Magnesium 3.2 H Total Bilirubin 0.9 AST 174 H D ALT 27 Alkaline Phosphatase 139 H D Total Protein 8.6 H Albumin 4.4 Globulin 4.2 H Albumin/Globulin Ratio 1.0 Urine Color Urine Clarity Urine pH Ur Specific [place] Urine Protein Urine Glucose (UA) Urine Ketones Urine Blood Urine Nitrate Urine Bilirubin Urine Urobilinogen Ur Leukocyte Esterase Urine WBC (Auto) Urine RBC (Auto) Ur Squamous Epith Cells Urine Bacteria Urine HCG, Qual Assessment & Plan - Assessment and Plan (Free Text) Assessment: hx of constipation ? Hirschsprungs disease post op leukocytosis s/p colostomy r/o perf viscus Portal vein thrombosis Add IV Merrem check CT scan cultures
[2018-06-25] MEDS ORDERED: Calcium Gluconate 4.65 mEq/10 ml Inj IVP ONE ×3 (13:34→17:27)
[2018-06-25] MEDS ORDERED: Albuterol 0.083% Inhal Sol (2.5 mg/3 mL) UD INH STA (13:55)
[2018-06-25] MEDS: Meropenem 500 MG in Sodium Chloride 0.9% 100 ML IVPB SCH ×2 (14:14→21:42)
--- NOTE | 2018-06-25 14:28 | CT ---
Date of service: 06/25/2018 PROCEDURE: CT Abdomen and Pelvis with contrast HISTORY: question of free air, increasing WBC COMPARISON: CT abdomen and pelvis with contrast performed 06/20/18 TECHNIQUE: Contrast dose: 100 mL Visipaque IV Radiation dose: Total exam DLP = 249.56 mGy-cm. This CT exam was performed using one or more of the following dose reduction techniques: Automated exposure control, adjustment of the mA and/or kV according to patient size, and/or use of iterative reconstruction technique. FINDINGS: LOWER THORAX: No visible consolidation, pleural effusion, or pneumothorax. LIVER: 1.1 cm hepatic dome hypodense lesion. Probable minimal residual thrombus within the left portal vein branch. Thrombus is not identified in the right or main pulmonary arteries. GALLBLADDER AND BILE DUCTS: Unremarkable. PANCREAS: Unremarkable. SPLEEN: Unremarkable. ADRENALS: Unremarkable. KIDNEYS AND URETERS: The kidneys enhance symmetrically. No hydronephrosis or obstructing calculus identified. VASCULATURE: No aortic aneurysm. BOWEL: Fluid and air within an incompletely distended stomach. Lack of oral contrast limits evaluation for bowel pathology. Markedly dilated loops of small bowel which appear fluid filled consistent with obstruction. Bowel anastomotic suture material re-identified. APPENDIX: The appendix appears within normal limits of caliber. No secondary signs of acute appendicitis. PERITONEUM: No significant free fluid. Interval development of free air/pneumoperitoneum. LYMPH NODES: No bulky adenopathy identified. BLADDER: Unremarkable. REPRODUCTIVE: Unremarkable. BONES: No acute osseous abnormality is detected. OTHER FINDINGS: None. IMPRESSION: Interval development of free air/pneumoperitoneum. Small bowel loops remain distended and fluid-filled consistent with obstruction. Perforated viscus is of concern in the absence of interval surgery since prior CT. 1.1 cm hepatic dome hypodense lesion. Probable minimal residual thrombus within the left portal vein branch. Thrombus is not identified in the right or main pulmonary arteries. Additional findings as above. Findings discussed with the patient's RN Elizabeth on 06/25/18 at 2:09 p.m..
[2018-06-25 14:36] LABS: CALCIUM 8.3 mg/dl (8.6-10.4)
--- NOTE | 2018-06-25 14:59 | RAD ---
Date of service: 06/25/2018 HISTORY: NGT placement COMPARISON: June 25, 2018 study performed 08:20 FINDINGS: LUNGS: No active pulmonary disease. PLEURA: No significant pleural effusion identified, no pneumothorax apparent. CARDIOVASCULAR: Normal. OSSEOUS STRUCTURES: No significant abnormalities. VISUALIZED UPPER ABDOMEN: There appears to be free air under the diaphragms, finding better seen on recent CT scan. Persistent small bowel obstruction. OTHER FINDINGS: Nasogastric tube tip in the proximal stomach with the last side hole to get the gastroesophageal junction. This should be advanced at least 5 cm. IMPRESSION: Suboptimally positioned nasogastric tube. Optimal placement would require advancing at least 5 cm. Incompletely visualized small bowel obstruction. Free air under the diaphragms confirmation of finding identified on recent CT scan.
[2018-06-25] MEDS: Sodium Chloride 0.9% 1,000 ML IV ONE ×2 (15:22→15:50)
[2018-06-25 17:21] LABS: CALCIUM 7.4 mg/dl (8.6-10.4)
[2018-06-25 17:24] LABS: ARTERIAL BLOOD GAS O2 SAT 95.6 % (95-98); ARTERIAL BLOOD GAS PCO2 29 mm/Hg (35-45); ARTERIAL BLOOD GAS PH 7.31 (7.35-7.45); ARTERIAL BLOOD GAS PO2 100 mm/Hg (80-100); ARTERIAL BLOOD GAS TCO2 15.5 mmol/L (22-28)
[2018-06-25] MEDS ORDERED: Fat Emulsion 20% IV 500 ML IV SCH (18:00)
[2018-06-25] MEDS ORDERED: PPN #5 IV ONE (18:00)
[2018-06-25] MEDS: metroNIDAZOLE IV 500 mg/100 ml 500 MG/100 ML BAG IVPB SCH (18:49)
[2018-06-26] MEDS: HYDROmorphone 0.5 mg/0.5 ml ISec IVP PRN ×5 (00:48→19:55)
[2018-06-26] MEDS: metroNIDAZOLE IV 500 mg/100 ml 500 MG/100 ML BAG IVPB SCH ×3 (03:37→18:14)
[2018-06-26] MEDS: Meropenem 500 MG in Sodium Chloride 0.9% 100 ML IVPB SCH ×3 (04:31→21:35)
[2018-06-26] MEDS: Levothyroxine 175 MCG TAB PO SCH (05:43)
[2018-06-26] MEDS ORDERED: PPN #6 IV ONE (06:45)
[2018-06-26 08:18] LABS: BLOOD UREA NITROGEN 43 mg/dL (7-17); CALCIUM 7.4 mg/dl (8.6-10.4); GFR NON-AFRICAN AMERICAN > 60
[2018-06-26 08:40] LABS: INR 6.4
[2018-06-26 08:58] LABS: EOS % 0.3 % (0.0-4.0)
[2018-06-26 09:16] LABS: PROTHROMBIN TIME 75.6 SECONDS (9.7-12.2)
[2018-06-26 09:17] LABS: BASO % 0.1 % (0.0-2.0); LYMPH # 1.2 K/uL (1.0-4.3); LYMPH % 6.4 % (20.0-40.0); MEAN CELL VOLUME 87.9 fL (81.0-99.0); MEAN CORPUSCULAR HEMOGLOBIN 29.5 pg (27.0-31.0); MEAN CORPUSCULAR HGB CONC 33.6 g/dL (33.0-37.0); MEAN PLATELET VOLUME 9.7 fL (7.2-11.7); MONO # 0.8 K/uL (0.0-0.8); MONO % 4.3 % (0.0-10.0); NEUT # 16.3 K/uL (1.8-7.0); NEUT % 88.9 % (50.0-75.0); RBC 3.52 Mil/uL (3.80-5.20); RED CELL DISTRIBUTION WIDTH 14.4 % (11.5-14.5)
[2018-06-26 09:18] LABS: HEMOGLOBIN 10.4 g/dL (11.0-16.0); PLATELET COUNT 542 K/uL (130-400); WHITE BLOOD COUNT 21.5 K/uL (4.8-10.8)
[2018-06-26] MEDS: Lidocaine 5% Patch TD SCH (09:35)
[2018-06-26 09:37] LABS: INR 6.9
[2018-06-26] MEDS ORDERED: Phytonadione 10 mg/ml Inj (Adult) SC STA (09:52)
[2018-06-26 10:41] LABS: BANDS 32 % (0-2); LYMPHOCYTE 14 % (20-40); METAMYELOCYTE 1 % (0-0); MONOCYTE 1 % (0-10); MYELOCYTE 2 % (0-0); NEUTROPHIL 50 % (50-75); TOTAL CELLS COUNTED 100
[2018-06-26 10:42] LABS: PLATELET ESTIMATE SLIGHTLY INCREASED (NORMAL)
--- NOTE | 2018-06-26 13:22 | CP.PCM.PN ---
Subjective - Date & Time of Evaluation Date of Evaluation: 06/26/18 Time of Evaluation: 09:00 - Subjective Subjective: NGT out Objective - Vital Signs/Intake and Output Vital Signs (last 24 hours): Temp Pulse Resp BP Pulse Ox 98 F 98 H 18 99/64 L 100 06/26/18 12:54 06/26/18 12:54 06/26/18 12:54 06/26/18 12:54 06/26/18 12:54 Intake and Output: 06/26/18 06/26/18 06:59 18:59 Intake Total 1462 Output Total 700 Balance 762 - Medications Medications: Current Medications Acetaminophen (Tylenol 325mg Tab) 650 mg PO Q6 PRN PRN Reason: Fever >100.4 F Artificial Tears (Refresh Opth Soln) 0 ml OD Q6H PRN PRN Reason: Dry eyes Diphenhydramine HCl (Benadryl) 50 mg PO Q8 PRN PRN Reason: Itching / Pruritus Last Admin: 06/17/18 02:56 Dose: 50 mg Docusate Sodium (Colace) 100 mg PO DAILY [facility] Last Admin: 06/26/18 09:37 Dose: Not Given Hydromorphone HCl (Dilaudid) 0.5 mg IVP Q4H PRN PRN Reason: Pain, severe (8-10) Last Admin: 06/26/18 12:32 Dose: 0.5 mg Metronidazole (Flagyl) 500 mg in 100 mls @ 100 mls/hr IVPB Q8H [facility]; Protocol Last Admin: 06/26/18 10:30 Dose: 100 mls/hr Fat Emulsion Intravenous (Intralipid 20%) 500 mls @ 42 mls/hr IV QOD@1800 [facility] Stop: 07/02/18 18:01 Last Admin: 06/25/18 20:57 Dose: 42 mls/hr Meropenem 500 mg/ Sodium (Chloride) 100 mls @ 100 mls/hr IVPB Q8H [facility]; Protocol Last Admin: 06/26/18 12:58 Dose: 100 mls/hr Sodium Bicarbonate 100 meq/ (Sodium Chloride) 1,100 mls @ 100 mls/hr IV .Q11H [facility] Last Admin: 06/26/18 06:30 Dose: 100 mls/hr Isosorbide Dinitrate (Isordil) 5 mg PO BID [facility] Last Admin: 06/26/18 09:37 Dose: Not Given Levothyroxine Sodium (Synthroid) 175 mcg PO DAILY@0630 [facility] Last Admin: 06/26/18 05:43 Dose: Not Given Lidocaine (Lidoderm) 1 ea TD DAILY [facility] Last Admin: 06/26/18 09:35 Dose: 1 ea Metoclopramide HCl (Reglan) 10 mg IVP Q6H [facility] Last Admin: 06/26/18 10:25 Dose: 10 mg Ondansetron HCl (Zofran Inj) 4 mg IVP Q6 PRN PRN Reason: Nausea/Vomiting Last Admin: 06/26/18 08:26 Dose: 4 mg Pantoprazole Sodium (Protonix Inj) 40 mg IVP Q12H [facility] Last Admin: 06/26/18 04:31 Dose: 40 mg Scopolamine (Transderm-Scop) 1 patch TD Q3D [facility] Last Admin: 06/24/18 08:42 Dose: 1 patch Zolpidem Tartrate (Ambien) 5 mg PO HS PRN PRN Reason: Insomnia Last Admin: 06/20/18 21:25 Dose: 5 mg - Labs Labs: 06/26/18 07:54 06/26/18 07:54 PT 75.6 SECONDS (9.7-12.2) H D 06/26/18 09:06 INR 6.9 06/26/18 09:06 APTT 32 SECONDS (21-34) 06/23/18 20:54 - Constitutional Appears: Non-toxic, Chronically Ill - Head Exam Head Exam: NORMOCEPHALIC - Eye Exam Eye Exam: absent: Scleral icterus - ENT Exam ENT Exam: Mucous Membranes Dry - Neck Exam Neck Exam: absent: Lymphadenopathy - Respiratory Exam Respiratory Exam: Decreased Breath Sounds - Cardiovascular Exam Cardiovascular Exam: REGULAR RHYTHM - GI/Abdominal Exam GI & Abdominal Exam: Distended Assessment and Plan - Assessment and Plan (Free Text) Assessment: cont merrem
[2018-06-26 17:08] LABS: PROTHROMBIN TIME 41.1 SECONDS (9.7-12.2)
[2018-06-26 17:21] LABS: INR 3.7
[2018-06-26] MEDS ORDERED: Lidocaine 2% Jelly (Uro-Jet) TOP STA (21:04)
[2018-06-26] MEDS ORDERED: Benzocaine/Menthol (Cepacol) Lozenge MT PRN (21:04)
[2018-06-26] MEDS ORDERED: HYDROmorphone 0.5 mg/0.5 ml ISec IVP STA (21:25)
[2018-06-27] MEDS: HYDROmorphone 0.5 mg/0.5 ml ISec IVP PRN ×2 (00:33→06:36)
[2018-06-27 01:27] VITALS: RESP 20
[2018-06-27] MEDS: metroNIDAZOLE IV 500 mg/100 ml 500 MG/100 ML BAG IVPB SCH ×3 (03:31→21:06)
[2018-06-27] MEDS: Meropenem 500 MG in Sodium Chloride 0.9% 100 ML IVPB SCH ×3 (04:31→22:31)
[2018-06-27] MEDS: Phenol Topical 1.4% Throat Spray (180 ml) MT PRN (04:32)
[2018-06-27] MEDS: Levothyroxine 175 MCG TAB PO SCH (05:36)
[2018-06-27 07:18] LABS: INR 1.9; PROTHROMBIN TIME 20.9 SECONDS (9.7-12.2)
[2018-06-27 07:32] LABS: BASO % 0.3 % (0.0-2.0); EOS # 0.2 K/uL (0.0-0.7); EOS % 1.9 % (0.0-4.0); HEMOGLOBIN 8.5 g/dL (11.0-16.0); LYMPH # 1.5 K/uL (1.0-4.3); LYMPH % 13.7 % (20.0-40.0); MEAN CORPUSCULAR HEMOGLOBIN 29.8 pg (27.0-31.0); MEAN CORPUSCULAR HGB CONC 34.7 g/dL (33.0-37.0); MEAN PLATELET VOLUME 8.6 fL (7.2-11.7); MONO # 0.4 K/uL (0.0-0.8); MONO % 4.2 % (0.0-10.0); NEUT # 8.5 K/uL (1.8-7.0); NEUT % 79.9 % (50.0-75.0); RBC 2.85 Mil/uL (3.80-5.20); RED CELL DISTRIBUTION WIDTH 14.5 % (11.5-14.5)
[2018-06-27 07:38] LABS: WHITE BLOOD COUNT 10.6 K/uL (4.8-10.8)
--- NOTE | 2018-06-27 07:43 | RAD ---
Date of service: 06/26/2018 HISTORY: NGT placement COMPARISON: Portable chest 06/25/2018. FINDINGS: LUNGS: Nasogastric tube appears to been advanced further into the stomach with the side hole in the left upper quadrant abdomen rather than the esophagogastric junction as previously demonstrated. No active pulmonary disease. PLEURA: No significant pleural effusion identified, no pneumothorax apparent. CARDIOVASCULAR: Normal. OSSEOUS STRUCTURES: No significant abnormalities. VISUALIZED UPPER ABDOMEN: Persistent distention of apparent small bowel loops in the abdomen reiterated with diminished free intra peritoneal gas suggested. Abdomen obstructive series would be more accurate in free air evaluation. OTHER FINDINGS: None. IMPRESSION: Adjustment of nasogastric tube with no acute cardiopulmonary disease appreciable at this time. Distended small bowel loops are again seen in the abdomen with suggestion of diminishing free intra peritoneal gas. Abdomen obstructive series can be performed for follow-up as clinically warranted.
[2018-06-27 08:15] LABS: ALBUMIN 2.8 g/dL (3.5-5.0); ALT/SGPT 32 U/L (9-52); AST/SGOT 15 U/L (14-36); BLOOD UREA NITROGEN 17 mg/dL (7-17); CALCIUM 7.5 mg/dl (8.6-10.4); GFR NON-AFRICAN AMERICAN > 60
[2018-06-27] MEDS: Lidocaine 5% Patch TD SCH (10:20)
[2018-06-27 11:38] LABS: INR 1.6; PROTHROMBIN TIME 17.5 SECONDS (9.7-12.2)
--- NOTE | 2018-06-27 14:06 | RAD ---
Date of service: 06/27/2018 PROCEDURE: Radiographs of the chest and abdomen (obstructive series) HISTORY: free air COMPARISON: No prior. TECHNIQUE: AP radiograph of the chest, with upright and supine radiographs of the abdomen. FINDINGS: CHEST: A nasogastric tube is identified placed with the tip coiled at the left upper quadrant abdomen. Lungs: No infiltrate bilaterally. Cardiovascular: Normal size heart. No pulmonary vascular congestion. Pleura: No pleural fluid. No pneumothorax. Other findings: None. ABDOMEN AND PELVIS: Bowel: Distended bowel loops are identified filled with gas and fluid with numerous air-fluid levels identified. The affected loops appear to be mostly small-bowel and small-bowel obstruction not excluded. Gas is seen in the rectum. The overall pattern suspicious for mid or distal small bowel obstruction and follow-up CT with oral and intravenous contrast is advised. Free air: None. Bones: Unremarkable. Other findings: None. IMPRESSION: 1. Bowel-gas pattern suspicious for mid to distal small bowel obstruction. No prominent free intra peritoneal gas collection evident. Follow-up CT with contrast is recommended. 2. No acute cardiopulmonary disease appreciable. 3. Nasogastric tube terminates at left upper quadrant abdomen.
--- NOTE | 2018-06-27 14:29 | CT ---
Date of service: 06/27/2018 PROCEDURE: CT Abdomen and Pelvis without intravenous contrast HISTORY: free air COMPARISON: Abdomen and pelvis CT with contrast 06/25/2018. TECHNIQUE: Helical CT of the abdomen and pelvis was performed without oral or intravenous contrast as per referring physician request. Coronal and sagittal reformats were generated. Contrast dose: None. Radiation dose: Total exam DLP = 288.49 mGy-cm. This CT exam was performed using one or more of the following dose reduction techniques: Automated exposure control, adjustment of the mA and/or kV according to patient size, and/or use of iterative reconstruction technique. FINDINGS: LOWER THORAX: A nasogastric tube is identified in the region of the esophagus terminating at the gastric viscus. Limited bilateral basilar dependent atelectasis identified at the left greater than right lung bases. LIVER: Right hepatic dome lesion not identified given lack images contrast. Overall density throughout the liver is nonfocal. GALLBLADDER AND BILE DUCTS: Unremarkable. PANCREAS: Unremarkable. No gross lesion or ductal dilatation. SPLEEN: Unremarkable. ADRENALS: Unremarkable. No mass. KIDNEYS AND URETERS: Infrequent peripheral hyperdensities are reiterated at the bilateral kidneys. No obstructive uropathy bilaterally once again. VASCULATURE: Unremarkable. No aortic aneurysm. BOWEL: The stomach is decompressed by nasogastric tube placement, however, small-bowel obstruction pattern persists with dilated small-bowel loops reiterated potentially increased in volume with fluid and gas in the lumen once again. Numerous air-fluid levels are identified. Questionable partial distal colectomy with postoperative suture material identified at the 2 segments of the distal colon. APPENDIX: Unremarkable. Normal appendix. PERITONEUM: Diminishing free intraperitoneal gas is suggested. Fluid is identified in the region of the umbilicus with limited abdominal ascites evident. LYMPH NODES: Unremarkable. No enlarged lymph nodes. BLADDER: Urinary bladder is distended but smooth and thin walled REPRODUCTIVE: Unremarkable. BONES: No acute fracture. OTHER FINDINGS: None. IMPRESSION: 1. Persistent small bowel obstruction pattern with diminishing free air and minimal ascites identified. 2. Lack of contrast agents limits evaluation. Questionable partial distal colectomy with postoperative suture material identified at the 2 segments of the distal colon. 3. Persistent hyperdensity is seen related to the bilateral kidneys reflecting cortical calcification.
[2018-06-27] MEDS ORDERED: Morphine 4 MG/ML VIAL IVP STA (15:03)
--- NOTE | 2018-06-27 15:53 | CP.PCM.PN ---
<YosephNaima - Last Filed: 06/27/18 15:50> Subjective - Date & Time of Evaluation Date of Evaluation: 06/27/18 Time of Evaluation: 15:50 - Subjective Subjective: Surgery Pt seen and examined. Pain controlled. Denies vomiting. Pt has NGT. Pt was given FFP today for possible OR. Pt denies fever. [place] better. Repeat X ray and CT valarie ws less amount of free air compared to previous ones. OR is cancelled. Objective - Vital Signs/Intake and Output Vital Signs (last 24 hours): Temp Pulse Resp BP Pulse Ox 98.1 F 95 H 20 87/52 L 99 06/27/18 11:35 06/27/18 11:35 06/27/18 11:35 06/27/18 11:35 06/27/18 11:35 Intake and Output: 06/27/18 06/27/18 06:59 18:59 Intake Total 2133 Output Total 2750 Balance -617 - Medications Medications: Current Medications Acetaminophen (Tylenol 325mg Tab) 650 mg PO Q6 PRN PRN Reason: Fever >100.4 F Artificial Tears (Refresh Opth Soln) 0 ml OD Q6H PRN PRN Reason: Dry eyes Benzocaine/Menthol (Cepacol Sore Throat) 1 nyasia MT Q2H PRN PRN Reason: Sore Throat Last Admin: 06/27/18 03:01 Dose: 1 nyasia Diphenhydramine HCl (Benadryl) 50 mg PO Q8 PRN PRN Reason: Itching / Pruritus Last Admin: 06/17/18 02:56 Dose: 50 mg Docusate Sodium (Colace) 100 mg PO DAILY [facility] Last Admin: 06/27/18 10:00 Dose: Not Given Hydromorphone HCl (Dilaudid) 0.5 mg IVP Q4H PRN PRN Reason: Pain, severe (8-10) Last Admin: 06/27/18 06:36 Dose: 0.5 mg Metronidazole (Flagyl) 500 mg in 100 mls @ 100 mls/hr IVPB Q8H [facility]; Protocol Last Admin: 06/27/18 11:36 Dose: 100 mls/hr Meropenem 500 mg/ Sodium (Chloride) 100 mls @ 100 mls/hr IVPB Q8H [facility]; Protocol Last Admin: 06/27/18 13:47 Dose: 100 mls/hr Sodium Bicarbonate 100 meq/ (Sodium Chloride) 1,100 mls @ 100 mls/hr IV .Q11H [facility] Last Admin: 06/27/18 02:36 Dose: Not Given Isosorbide Dinitrate (Isordil) 5 mg PO BID [facility] Last Admin: 06/27/18 10:00 Dose: Not Given Levothyroxine Sodium (Synthroid) 175 mcg PO DAILY@0630 [facility] Last Admin: 06/27/18 05:36 Dose: Not Given Lidocaine (Lidoderm) 1 ea TD DAILY [facility] Last Admin: 06/27/18 10:20 Dose: 1 ea Metoclopramide HCl (Reglan) 10 mg IVP Q6H [facility] Last Admin: 06/27/18 10:20 Dose: 10 mg Ondansetron HCl (Zofran Inj) 4 mg IVP Q6 PRN PRN Reason: Nausea/Vomiting Last Admin: 06/26/18 08:26 Dose: 4 mg Pantoprazole Sodium (Protonix Inj) 40 mg IVP Q12H [facility] Last Admin: 06/27/18 04:31 Dose: 40 mg Phenol/Menthol (Phenaseptic 1.4% Throat [place]) 0 ml MT Q1H PRN PRN Reason: Sore Throat Last Admin: 06/27/18 04:32 Dose: 1 spray Scopolamine (Transderm-Scop) 1 patch TD Q3D [facility] Last Admin: 06/24/18 08:42 Dose: 1 patch Zolpidem Tartrate (Ambien) 5 mg PO HS PRN PRN Reason: Insomnia Last Admin: 06/27/18 02:58 Dose: 5 mg - Labs Labs: 06/27/18 07:06 06/27/18 07:06 PT 17.5 SECONDS (9.7-12.2) H 06/27/18 11:27 INR 1.6 06/27/18 11:27 APTT 32 SECONDS (21-34) 06/23/18 20:54 - Constitutional Appears: No Acute Distress - Head Exam Head Exam: ATRAUMATIC, NORMAL INSPECTION, NORMOCEPHALIC - Eye Exam Eye Exam: EOMI, Normal appearance, PERRL Pupil Exam: NORMAL ACCOMODATION, PERRL - ENT Exam ENT Exam: Mucous Membranes Moist - Neck Exam Neck Exam: Full ROM, Normal Inspection. absent: Lymphadenopathy - Respiratory Exam Respiratory Exam: NORMAL BREATHING PATTERN - Cardiovascular Exam Cardiovascular Exam: REGULAR RHYTHM - GI/Abdominal Exam GI & Abdominal Exam: Distended, Soft, Tenderness. absent: Firm, Guarding, Rigid, Rebound - Exam Exam: NORMAL INSPECTION - Extremities Exam Extremities Exam: Full ROM - Back Exam Back Exam: NORMAL INSPECTION - Neurological Exam Neurological Exam: Alert, Awake, CN II-XII Intact, Normal Gait, Oriented x3 - Psychiatric Exam Psychiatric exam: Normal Affect, Normal Mood - Skin Skin Exam: Dry, Intact, Normal Color, Warm Assessment and Plan - Assessment and Plan (Free Text) Assessment: 33F POD#15 s/p subtotal colectomy with primary anastamosis Plan: Continue PPN order PICC NPO NGT to suction Continue to trend CBC, BMP, INR Replete electrolytes as needed Antibiotics for leukocytosis PRN pain and nausea medication Discussed with Dr. Robins <Landon Robins - Last Filed: 07/02/18 17:55> Objective - Vital Signs/Intake and Output Vital Signs (last 24 hours): Temp Pulse Resp BP Pulse Ox 98.4 F 78 20 108/69 98 07/02/18 15:00 07/02/18 15:00 07/02/18 15:00 07/02/18 15:00 07/02/18 15:00 Intake and Output: 07/02/18 07/02/18 06:59 18:59 Intake Total 598 1921 Output Total 100 150 Balance 498 1771 - Medications Medications: Current Medications Acetaminophen (Tylenol 325mg Tab) 650 mg PO Q6 PRN PRN Reason: Fever >100.4 F Artificial Tears (Refresh Opth Soln) 0 ml OD Q6H PRN PRN Reason: Dry eyes Benzocaine/Menthol (Cepacol Sore Throat) 1 nyasia MT Q2H PRN PRN Reason: Sore Throat Last Admin: 06/27/18 03:01 Dose: 1 nyasia Docusate Sodium (Colace) 100 mg PO DAILY [facility] Last Admin: 06/27/18 10:00 Dose: Not Given Enoxaparin Sodium (Lovenox) 30 mg SC DAILY [facility] Last Admin: 07/02/18 10:09 Dose: 30 mg Meropenem 500 mg/ Sodium (Chloride) 100 mls @ 100 mls/hr IVPB Q8H [facility]; Protocol Last Admin: 07/02/18 14:15 Dose: 100 mls/hr Ferric Sodium Gluconate Complex 125 mg/ Sodium Chloride 110 mls @ 105 mls/hr IVPB QOD [facility] Stop: 07/06/18 11:03 Last Admin: 07/02/18 10:22 Dose: 105 mls/hr Heparin Sodium (Porcine) 1,000 units/ Amino Acids/Electrolytes/Dextrose 1,001 mls @ 83 mls/hr IV .Q12H4M [facility] Stop: 07/02/18 17:59 Multivitamins/Vitamin C 10 ml/Chromium/Copper/Manganese/Zinc 1 ml/ Heparin Sodium ( Porcine) 1,000 units/ Amino Acids/Electrolytes/Dextrose 1,012 mls @ 83 mls/hr IV .[id number] ONE Stop: 07/03/18 06:11 Heparin Sodium (Porcine) 1,000 units/ Amino Acids/Electrolytes/Dextrose 1,001 mls @ 83 mls/hr IV .Q12H4M ONE Stop: 07/03/18 18:03 Fat Emulsion Intravenous (Intralipid 20%) 500 mls @ 42 mls/hr IV DAILY ONE Stop: 07/03/18 05:54 Isosorbide Dinitrate (Isordil) 5 mg PO BID [facility] Last Admin: 07/02/18 10:12 Dose: Not Given Levothyroxine Sodium (Synthroid) 175 mcg PO DAILY@0630 [facility] Last Admin: 07/02/18 05:30 Dose: 175 mcg Lidocaine (Lidoderm) 1 ea TD DAILY [facility] Last Admin: 07/02/18 10:08 Dose: 1 ea Metoclopramide HCl (Reglan) 10 mg IVP Q6H [facility] Last Admin: 07/02/18 17:14 Dose: 10 mg Morphine Sulfate (Morphine) 4 mg IVP Q4 PRN PRN Reason: Pain, severe (8-10) Morphine Sulfate (Morphine) 2 mg IVP Q4 PRN PRN Reason: Pain, moderate (4-7) Last Admin: 07/02/18 17:14 Dose: 2 mg Ondansetron HCl (Zofran Inj) 4 mg IVP Q6 PRN PRN Reason: Nausea/Vomiting Last Admin: 06/26/18 08:26 Dose: 4 mg Pantoprazole Sodium (Protonix Inj) 40 mg IVP Q12H [facility] Last Admin: 07/02/18 17:13 Dose: 40 mg Phenol/Menthol (Phenaseptic 1.4% Throat [place]) 0 ml MT Q1H PRN PRN Reason: Sore Throat Last Admin: 06/28/18 04:21 Dose: 1 spray Scopolamine (Transderm-Scop) 1 patch TD Q3D [facility] Last Admin: 06/30/18 12:36 Dose: 1 patch Zolpidem Tartrate (Ambien) 5 mg PO HS PRN PRN Reason: Insomnia Last Admin: 06/27/18 02:58 Dose: 5 mg - Labs Labs: 07/02/18 05:51 07/02/18 05:51 PT 16.4 SECONDS (9.7-12.2) H 06/28/18 07:07 INR 1.5 06/28/18 07:07 APTT 32 SECONDS (21-34) 06/23/18 20:54 Attending/Attestation - Attestation I have personally seen and examined this patient.: Yes I have fully participated in the care of the patient.: Yes I have reviewed all pertinent clinical information, including history, physical exam and plan: Yes Notes (Text): Pt was seen and examined at bedside Agree with above note and assessment Pt is improving clinically AXR and CT scan is suggestive of less air around Liver Pt is improving clinically We will c.w conservative mx No need for surgical intervention at present Plan d.w pt in detail Risk and benefit explained in detail.
[2018-06-27] MEDS: Dextrose 5%/0.45% NS 1,000 ML IV SCH (16:55)
[2018-06-27] MEDS ORDERED: Dextrose 5%/0.45% NS 1,000 ML IV SCH (17:00)
--- NOTE | 2018-06-27 18:57 | CP.PCM.PN ---
Subjective - Date & Time of Evaluation Date of Evaluation: 06/27/18 Time of Evaluation: 08:00 - Subjective Subjective: OR cancelled appears to be improving Objective - Vital Signs/Intake and Output Vital Signs (last 24 hours): Temp Pulse Resp BP Pulse Ox 98.0 F 98 H 20 96/65 L 97 06/27/18 15:50 06/27/18 15:50 06/27/18 15:50 06/27/18 15:50 06/27/18 15:50 Intake and Output: 06/27/18 06/27/18 06:59 18:59 Intake Total 2133 1300 Output Total 2750 300 Balance -617 1000 - Medications Medications: Current Medications Acetaminophen (Tylenol 325mg Tab) 650 mg PO Q6 PRN PRN Reason: Fever >100.4 F Artificial Tears (Refresh Opth Soln) 0 ml OD Q6H PRN PRN Reason: Dry eyes Benzocaine/Menthol (Cepacol Sore Throat) 1 nyasia MT Q2H PRN PRN Reason: Sore Throat Last Admin: 06/27/18 03:01 Dose: 1 nyasia Diphenhydramine HCl (Benadryl) 50 mg PO Q8 PRN PRN Reason: Itching / Pruritus Last Admin: 06/17/18 02:56 Dose: 50 mg Docusate Sodium (Colace) 100 mg PO DAILY [facility] Last Admin: 06/27/18 10:00 Dose: Not Given Metronidazole (Flagyl) 500 mg in 100 mls @ 100 mls/hr IVPB Q8H [facility]; Protocol Last Admin: 06/27/18 11:36 Dose: 100 mls/hr Meropenem 500 mg/ Sodium (Chloride) 100 mls @ 100 mls/hr IVPB Q8H [facility]; Protocol Last Admin: 06/27/18 13:47 Dose: 100 mls/hr Sodium Bicarbonate 100 meq/ (Sodium Chloride) 1,100 mls @ 100 mls/hr IV .Q11H [facility] Last Admin: 06/27/18 16:56 Dose: 100 mls/hr Dextrose/Sodium Chloride (Dextrose 5%/0.45% Ns 1000 Ml) 1,000 mls @ 100 mls/hr IV .Q10H [facility] Last Admin: 06/27/18 16:55 Dose: 100 mls/hr Dextrose/Sodium Chloride (Dextrose 5%/0.45% Ns 1000 Ml) 1,000 mls @ 100 mls/hr IV .Q10H [facility] Isosorbide Dinitrate (Isordil) 5 mg PO BID [facility] Last Admin: 06/27/18 18:41 Dose: Not Given Levothyroxine Sodium (Synthroid) 175 mcg PO DAILY@0630 [facility] Last Admin: 06/27/18 05:36 Dose: Not Given Lidocaine (Lidoderm) 1 ea TD DAILY [facility] Last Admin: 06/27/18 10:20 Dose: 1 ea Metoclopramide HCl (Reglan) 10 mg IVP Q6H [facility] Last Admin: 06/27/18 16:40 Dose: 10 mg Morphine Sulfate (Morphine) 4 mg IVP Q4 PRN PRN Reason: Pain, severe (8-10) Ondansetron HCl (Zofran Inj) 4 mg IVP Q6 PRN PRN Reason: Nausea/Vomiting Last Admin: 06/26/18 08:26 Dose: 4 mg Pantoprazole Sodium (Protonix Inj) 40 mg IVP Q12H [facility] Last Admin: 06/27/18 18:40 Dose: 40 mg Phenol/Menthol (Phenaseptic 1.4% Throat [place]) 0 ml MT Q1H PRN PRN Reason: Sore Throat Last Admin: 06/27/18 04:32 Dose: 1 spray Scopolamine (Transderm-Scop) 1 patch TD Q3D [facility] Last Admin: 06/24/18 08:42 Dose: 1 patch Zolpidem Tartrate (Ambien) 5 mg PO HS PRN PRN Reason: Insomnia Last Admin: 06/27/18 02:58 Dose: 5 mg - Labs Labs: 06/27/18 07:06 06/27/18 07:06 PT 17.5 SECONDS (9.7-12.2) H 06/27/18 11:27 INR 1.6 06/27/18 11:27 APTT 32 SECONDS (21-34) 06/23/18 20:54
[2018-06-27] MEDS: Morphine 4 MG/ML VIAL IVP PRN (22:30)
[2018-06-28] MEDS: metroNIDAZOLE IV 500 mg/100 ml 500 MG/100 ML BAG IVPB SCH ×3 (02:39→21:11)
[2018-06-28] MEDS: Dextrose 5%/0.45% NS 1,000 ML IV SCH ×2 (04:16→13:07)
[2018-06-28] MEDS: Meropenem 500 MG in Sodium Chloride 0.9% 100 ML IVPB SCH ×3 (04:16→21:12)
[2018-06-28] MEDS: Phenol Topical 1.4% Throat Spray (180 ml) MT PRN (04:21)
[2018-06-28] MEDS: Morphine 4 MG/ML VIAL IVP PRN ×2 (04:25→18:56)
[2018-06-28] MEDS: Levothyroxine 175 MCG TAB PO SCH (05:37)
[2018-06-28 07:36] LABS: INR 1.5; PROTHROMBIN TIME 16.4 SECONDS (9.7-12.2)
[2018-06-28 07:46] LABS: ALB/GLOB RATIO 1.1 (1.0-2.1); ALBUMIN 2.6 g/dL (3.5-5.0); ALT/SGPT 29 U/L (9-52); AST/SGOT 16 U/L (14-36); BLOOD UREA NITROGEN 11 mg/dL (7-17); CALCIUM 6.9 mg/dl (8.6-10.4); GFR NON-AFRICAN AMERICAN > 60
[2018-06-28 07:53] LABS: BASO % 0.4 % (0.0-2.0); EOS # 0.4 K/uL (0.0-0.7); EOS % 3.8 % (0.0-4.0); HEMOGLOBIN 7.7 g/dL (11.0-16.0); LYMPH # 1.3 K/uL (1.0-4.3); LYMPH % 13.9 % (20.0-40.0); MEAN CELL VOLUME 87.5 fL (81.0-99.0); MEAN CORPUSCULAR HEMOGLOBIN 29.9 pg (27.0-31.0); MEAN CORPUSCULAR HGB CONC 34.2 g/dL (33.0-37.0); MEAN PLATELET VOLUME 8.4 fL (7.2-11.7); MONO # 0.4 K/uL (0.0-0.8); NEUT # 7.3 K/uL (1.8-7.0); NEUT % 77.9 % (50.0-75.0); NRBC % 0.1 % (0.0-2.0); RBC 2.58 Mil/uL (3.80-5.20); RED CELL DISTRIBUTION WIDTH 14.4 % (11.5-14.5); WHITE BLOOD COUNT 9.4 K/uL (4.8-10.8)
--- NOTE | 2018-06-28 08:35 | CP.PCM.PN ---
<Marcella Hopper - Last Filed: 06/28/18 08:32> Subjective - Date & Time of Evaluation Date of Evaluation: 06/28/18 Time of Evaluation: 06:50 - Subjective Subjective: Surgery progress note for Dr. Robins Pt seen and examined at bedside this AM. no adverse events overnight. patient states pain in her abdomen is better, but that the pain in her throat from the NGT is bothering her. Patient denies any nausea or vomiting, NGT with 600cc's output over 24 hours. Objective - Vital Signs/Intake and Output Vital Signs (last 24 hours): Temp Pulse Resp BP Pulse Ox 98.4 F 80 20 103/67 100 06/28/18 00:00 06/28/18 00:00 06/28/18 00:00 06/28/18 00:00 06/28/18 00:00 Intake and Output: 06/28/18 06/28/18 06:59 18:59 Intake Total 1900 Output Total 300 Balance 1600 - Medications Medications: Current Medications Acetaminophen (Tylenol 325mg Tab) 650 mg PO Q6 PRN PRN Reason: Fever >100.4 F Artificial Tears (Refresh Opth Soln) 0 ml OD Q6H PRN PRN Reason: Dry eyes Benzocaine/Menthol (Cepacol Sore Throat) 1 nyasia MT Q2H PRN PRN Reason: Sore Throat Last Admin: 06/27/18 03:01 Dose: 1 nyasia Diphenhydramine HCl (Benadryl) 50 mg PO Q8 PRN PRN Reason: Itching / Pruritus Last Admin: 06/17/18 02:56 Dose: 50 mg Docusate Sodium (Colace) 100 mg PO DAILY [facility] Last Admin: 06/27/18 10:00 Dose: Not Given Metronidazole (Flagyl) 500 mg in 100 mls @ 100 mls/hr IVPB Q8H [facility]; Protocol Last Admin: 06/28/18 02:39 Dose: 100 mls/hr Meropenem 500 mg/ Sodium (Chloride) 100 mls @ 100 mls/hr IVPB Q8H [facility]; Protocol Last Admin: 06/28/18 04:16 Dose: 100 mls/hr Dextrose/Sodium Chloride (Dextrose 5%/0.45% Ns 1000 Ml) 1,000 mls @ 100 mls/hr IV .Q10H [facility] Last Admin: 06/28/18 04:16 Dose: 100 mls/hr Dextrose/Sodium Chloride (Dextrose 5%/0.45% Ns 1000 Ml) 1,000 mls @ 100 mls/hr IV .Q10H [facility] Last Admin: 06/28/18 03:04 Dose: Not Given Isosorbide Dinitrate (Isordil) 5 mg PO BID [facility] Last Admin: 06/27/18 18:41 Dose: Not Given Levothyroxine Sodium (Synthroid) 175 mcg PO DAILY@0630 [facility] Last Admin: 06/28/18 05:37 Dose: Not Given Lidocaine (Lidoderm) 1 ea TD DAILY [facility] Last Admin: 06/27/18 10:20 Dose: 1 ea Metoclopramide HCl (Reglan) 10 mg IVP Q6H [facility] Last Admin: 06/28/18 04:15 Dose: 10 mg Morphine Sulfate (Morphine) 4 mg IVP Q4 PRN PRN Reason: Pain, severe (8-10) Last Admin: 06/28/18 04:25 Dose: 4 mg Ondansetron HCl (Zofran Inj) 4 mg IVP Q6 PRN PRN Reason: Nausea/Vomiting Last Admin: 06/26/18 08:26 Dose: 4 mg Pantoprazole Sodium (Protonix Inj) 40 mg IVP Q12H [facility] 234 [facility] Last Admin: 06/28/18 04:16 Dose: 40 mg Phenol/Menthol (Phenaseptic 1.4% Throat [place]) 0 ml MT Q1H PRN PRN Reason: Sore Throat Last Admin: 06/28/18 04:21 Dose: 1 spray Scopolamine (Transderm-Scop) 1 patch TD Q3D [facility] 234 [facility] Last Admin: 06/24/18 08:42 Dose: 1 patch Zolpidem Tartrate (Ambien) 5 mg PO HS PRN PRN Reason: Insomnia Last Admin: 06/27/18 02:58 Dose: 5 mg - Labs Labs: 06/28/18 07:07 06/28/18 07:07 PT 16.4 SECONDS (9.7-12.2) H 06/28/18 07:07 INR 1.5 06/28/18 07:07 APTT 32 SECONDS (21-34) 06/23/18 20:54 - Constitutional Appears: Well, Non-toxic, No Acute Distress - Head Exam Head Exam: ATRAUMATIC, NORMOCEPHALIC - Eye Exam Eye Exam: Normal appearance. absent: Conjunctival injection, Scleral icterus - ENT Exam ENT Exam: Mucous Membranes Moist, Normal Oropharynx - Respiratory Exam Respiratory Exam: NORMAL BREATHING PATTERN. absent: Accessory Muscle Use, Respiratory Distress - Cardiovascular Exam Cardiovascular Exam: RRR - GI/Abdominal Exam GI & Abdominal Exam: Soft, Tenderness (mild tenderness suprapubis). absent: Distended Additional comments: dressing over midline incision c/d/i, no surrounding erythema - Extremities Exam Extremities Exam: absent: Calf Tenderness, Pedal Edema, Tenderness - Neurological Exam Neurological Exam: Alert, Awake, Oriented x3 - Psychiatric Exam Psychiatric exam: Flat Affect, Normal Mood - Skin Skin Exam: Dry, Normal Color, Warm Assessment and Plan - Assessment and Plan (Free Text) Assessment: 33F POD#17 s/p robotic sub-total colectomy with portal vein thrombosis Plan: Continue NGT to low continuous suction Continue to monitor intake and output of NGT and urine Continue to trend CBC/BMP/mag/phos Going for PICC today--will start TPN after PICC Monitor for bowel function Encourage ambulation--can clamp NGT for activity Will continue to monitor clinical state--free air improving on CT yesterday with no intervention and patient clinically improved, will continue to monitor closely at this time Discussed with Dr. Shimon Hopper, PGY2 <Landon Robins - Last Filed: 07/02/18 17:57> Objective - Vital Signs/Intake and Output Vital Signs (last 24 hours): Temp Pulse Resp BP Pulse Ox 98.4 F 78 20 108/69 98 07/02/18 15:00 07/02/18 15:00 07/02/18 15:00 07/02/18 15:00 07/02/18 15:00 Intake and Output: 07/02/18 07/02/18 06:59 18:59 Intake Total 598 1921 Output Total 100 150 Balance 498 1771 - Medications Medications: Current Medications Acetaminophen (Tylenol 325mg Tab) 650 mg PO Q6 PRN PRN Reason: Fever >100.4 F Artificial Tears (Refresh Opth Soln) 0 ml OD Q6H PRN PRN Reason: Dry eyes Benzocaine/Menthol (Cepacol Sore Throat) 1 nyasia MT Q2H PRN PRN Reason: Sore Throat Last Admin: 06/27/18 03:01 Dose: 1 nyasia Docusate Sodium (Colace) 100 mg PO DAILY [facility] Last Admin: 06/27/18 10:00 Dose: Not Given Enoxaparin Sodium (Lovenox) 30 mg SC DAILY [facility] Last Admin: 07/02/18 10:09 Dose: 30 mg Meropenem 500 mg/ Sodium (Chloride) 100 mls @ 100 mls/hr IVPB Q8H [facility] 234 [facility]S [facility]; Protocol Last Admin: 07/02/18 14:15 Dose: 100 mls/hr Ferric Sodium Gluconate Complex 125 mg/ Sodium Chloride 110 mls @ 105 mls/hr IVPB QOD [facility] Stop: 07/06/18 11:03 Last Admin: 07/02/18 10:22 Dose: 105 mls/hr Heparin Sodium (Porcine) 1,000 units/ Amino Acids/Electrolytes/Dextrose 1,001 mls @ 83 mls/hr IV .Q12H4M [facility] Stop: 07/02/18 17:59 Multivitamins/Vitamin C 10 ml/Chromium/Copper/Manganese/Zinc 1 ml/ Heparin Sodium ( Porcine) 1,000 units/ Amino Acids/Electrolytes/Dextrose 1,012 mls @ 83 mls/hr IV .[id number] ONE Stop: 07/03/18 06:11 Heparin Sodium (Porcine) 1,000 units/ Amino Acids/Electrolytes/Dextrose 1,001 mls @ 83 mls/hr IV .Q12H4M [facility] Stop: 07/03/18 18:03 Fat Emulsion Intravenous (Intralipid 20%) 500 mls @ 42 mls/hr IV DAILY [facility] Stop: 07/03/18 05:54 Isosorbide Dinitrate (Isordil) 5 mg PO BID [facility] 234 [facility]S [facility] Last Admin: 07/02/18 10:12 Dose: Not Given Levothyroxine Sodium (Synthroid) 175 mcg PO DAILY@0630 [facility] 234 [facility]S [facility] Last Admin: 07/02/18 05:30 Dose: 175 mcg Lidocaine (Lidoderm) 1 ea TD DAILY [facility] 234 [facility]S [facility] Last Admin: 07/02/18 10:08 Dose: 1 ea Metoclopramide HCl (Reglan) 10 mg IVP Q6H [facility] 234 [facility]S [facility] Last Admin: 07/02/18 17:14 Dose: 10 mg Morphine Sulfate (Morphine) 4 mg IVP Q4 PRN PRN Reason: Pain, severe (8-10) Morphine Sulfate (Morphine) 2 mg IVP Q4 PRN PRN Reason: Pain, moderate (4-7) Last Admin: 07/02/18 17:14 Dose: 2 mg Ondansetron HCl (Zofran Inj) 4 mg IVP Q6 PRN PRN Reason: Nausea/Vomiting Last Admin: 06/26/18 08:26 Dose: 4 mg Pantoprazole Sodium (Protonix Inj) 40 mg IVP Q12H [facility] Last Admin: 07/02/18 17:13 Dose: 40 mg Phenol/Menthol (Phenaseptic 1.4% Throat [place]) 0 ml MT Q1H PRN PRN Reason: Sore Throat Last Admin: 06/28/18 04:21 Dose: 1 spray Scopolamine (Transderm-Scop) 1 patch TD Q3D [facility] Last Admin: 06/30/18 12:36 Dose: 1 patch Zolpidem Tartrate (Ambien) 5 mg PO HS PRN PRN Reason: Insomnia Last Admin: 06/27/18 02:58 Dose: 5 mg - Labs Labs: 07/02/18 05:51 07/02/18 05:51 PT 16.4 SECONDS (9.7-12.2) H 06/28/18 07:07 INR 1.5 06/28/18 07:07 APTT 32 SECONDS (21-34) 06/23/18 20:54 Attending/Attestation - Attestation I have personally seen and examined this patient.: Yes I have fully participated in the care of the patient.: Yes I have reviewed all pertinent clinical information, including history, physical exam and plan: Yes Notes (Text): Pt was seen and examined at bedside Agree with above note and assessment Pt is improving clinically Pt has post operative ileus C/w NG to LIS,TPN IV antibiotics OOB to walk Plan d.w pt in detail Risk and benefit explained in detail.
--- NOTE | 2018-06-28 10:27 | RAD ---
Date of service: 06/28/2018 HISTORY: verify right PICC COMPARISON: Portable chest 06/26/2018. FINDINGS: LUNGS: Nasogastric tube is unchanged in position. A right upper extremity PICC is been inserted terminating at the cavoatrial junction. Somewhat limited pulmonary volume noted. No acute airspace disease identified bilaterally. PLEURA: No significant pleural effusion identified, no pneumothorax apparent. CARDIOVASCULAR: No atherosclerotic calcification present Normal. OSSEOUS STRUCTURES: No significant abnormalities. VISUALIZED UPPER ABDOMEN: Prior free intraperitoneal gas not clearly identified. OTHER FINDINGS: None. IMPRESSION: Interval acute cardiopulmonary changes. Right PICC identified insert as discussed above with stable nasogastric tube placement. Prior free intraperitoneal gas not clearly identified.
[2018-06-28] MEDS: Lidocaine 5% Patch TD SCH (11:00)
[2018-06-28] MEDS: Ferric Sodium Gluconat Complex 125 MG in Sodium Chloride 0.9% 100 ML IVPB SCH (13:27)
[2018-06-28] MEDS ORDERED: Ferric Sodium Gluconat Complex 62.5 mg/5 ml Vial IVPB SCH (14:00)
[2018-06-28] MEDS ORDERED: TPN CENTRAL LINE ONLY IV ONE (18:00)
[2018-06-28] MEDS ORDERED: Fat Emulsion 20% IV 250 ML IV ONE (18:00)
--- NOTE | 2018-06-28 18:48 | CP.PCM.PN ---
Subjective - Date & Time of Evaluation Date of Evaluation: 06/28/18 Time of Evaluation: 08:00 - Subjective Subjective: pain less iv rx renewed Objective - Vital Signs/Intake and Output Vital Signs (last 24 hours): Temp Pulse Resp BP Pulse Ox 98.4 F 77 20 103/67 97 06/28/18 16:00 06/28/18 16:00 06/28/18 16:00 06/28/18 16:00 06/28/18 16:00 Intake and Output: 06/28/18 06/28/18 06:59 18:59 Intake Total 1900 1000 Output Total 300 50 Balance 1600 950 - Medications Medications: Current Medications Acetaminophen (Tylenol 325mg Tab) 650 mg PO Q6 PRN PRN Reason: Fever >100.4 F Artificial Tears (Refresh Opth Soln) 0 ml OD Q6H PRN PRN Reason: Dry eyes Benzocaine/Menthol (Cepacol Sore Throat) 1 nyasia MT Q2H PRN PRN Reason: Sore Throat Last Admin: 06/27/18 03:01 Dose: 1 nyasia Diphenhydramine HCl (Benadryl) 50 mg PO Q8 PRN PRN Reason: Itching / Pruritus Last Admin: 06/17/18 02:56 Dose: 50 mg Docusate Sodium (Colace) 100 mg PO DAILY [facility] Last Admin: 06/27/18 10:00 Dose: Not Given Metronidazole (Flagyl) 500 mg in 100 mls @ 100 mls/hr IVPB Q8H [facility]; Protocol Last Admin: 06/28/18 10:59 Dose: 100 mls/hr Meropenem 500 mg/ Sodium (Chloride) 100 mls @ 100 mls/hr IVPB Q8H [facility]; Protocol Last Admin: 06/28/18 12:40 Dose: 100 mls/hr Potassium Phosphate 30 mmole/Multivitamins/Vitamin C 10 ml/Chromium/Copper/Manganese/Zinc 1 ml/ Amino Acids 1,021 mls @ 83 mls/hr IV .Q 12H19M ONE Stop: 06/29/18 06:18 Last Admin: 06/28/18 18:12 Dose: 83 mls/hr Potassium Phosphate 30 mmole/ (Amino Acids) 1,010 mls @ 83 mls/hr IV .[id number] [facility] Stop: 06/29/18 17:59 Fat Emulsion Intravenous (Intralipid 20%) 250 mls @ 42 mls/hr IV QWK ONE Stop: 06/28/18 23:57 Last Admin: 06/28/18 18:12 Dose: 42 mls/hr Ferric Sodium Gluconate Complex 125 mg/ Sodium Chloride 110 mls @ 105 mls/hr IVPB QOD [facility] Stop: 07/06/18 11:03 Last Admin: 06/28/18 13:27 Dose: 105 mls/hr Isosorbide Dinitrate (Isordil) 5 mg PO BID [facility] Last Admin: 06/28/18 11:05 Dose: Not Given Levothyroxine Sodium (Synthroid) 175 mcg PO DAILY@0630 [facility] Last Admin: 06/28/18 05:37 Dose: Not Given Lidocaine (Lidoderm) 1 ea TD DAILY [facility] Last Admin: 06/28/18 11:00 Dose: 1 ea Metoclopramide HCl (Reglan) 10 mg IVP Q6H [facility] Last Admin: 06/28/18 18:12 Dose: 10 mg Morphine Sulfate (Morphine) 4 mg IVP Q4 PRN PRN Reason: Pain, severe (8-10) Last Admin: 06/28/18 04:25 Dose: 4 mg Ondansetron HCl (Zofran Inj) 4 mg IVP Q6 PRN PRN Reason: Nausea/Vomiting Last Admin: 06/26/18 08:26 Dose: 4 mg Pantoprazole Sodium (Protonix Inj) 40 mg IVP Q12H [facility] Last Admin: 06/28/18 18:12 Dose: 40 mg Phenol/Menthol (Phenaseptic 1.4% Throat [place]) 0 ml MT Q1H PRN PRN Reason: Sore Throat Last Admin: 06/28/18 04:21 Dose: 1 spray Scopolamine (Transderm-Scop) 1 patch TD Q3D [facility] Last Admin: 06/24/18 08:42 Dose: 1 patch Zolpidem Tartrate (Ambien) 5 mg PO HS PRN PRN Reason: Insomnia Last Admin: 06/27/18 02:58 Dose: 5 mg - Labs Labs: 06/28/18 07:07 06/28/18 07:07 PT 16.4 SECONDS (9.7-12.2) H 06/28/18 07:07 INR 1.5 06/28/18 07:07 APTT 32 SECONDS (21-34) 06/23/18 20:54 - Constitutional Appears: Non-toxic, Chronically Ill - Head Exam Head Exam: NORMOCEPHALIC - Eye Exam Eye Exam: PERRL - ENT Exam ENT Exam: Mucous Membranes Dry - Neck Exam Neck Exam: absent: Lymphadenopathy - Respiratory Exam Respiratory Exam: Decreased Breath Sounds - Cardiovascular Exam Cardiovascular Exam: REGULAR RHYTHM - GI/Abdominal Exam GI & Abdominal Exam: Distended, Soft, Tenderness Assessment and Plan - Assessment and Plan (Free Text) Assessment: s/p colectomy post op leukocytosis, portal vein thrombosis, ileus cont rx
[2018-06-29] MEDS: Morphine 4 MG/ML VIAL IVP PRN ×2 (02:17→18:24)
[2018-06-29] MEDS: Meropenem 500 MG in Sodium Chloride 0.9% 100 ML IVPB SCH ×3 (04:16→22:45)
[2018-06-29] MEDS: Levothyroxine 175 MCG TAB PO SCH (06:14)
[2018-06-29] MEDS ORDERED: TPN CENTRAL LINE IV SCH (06:15)
--- NOTE | 2018-06-29 07:28 | CP.PCM.PN ---
<Chaitanya Khan Jak - Last Filed: 06/29/18 07:21> Subjective - Date & Time of Evaluation Date of Evaluation: 06/29/18 Time of Evaluation: 07:21 - Subjective Subjective: General Surgery: Dr Robins Pt S&E. KAMRAN. Had 250cc from NGT last 24 hours. Passing flatus. Ambulating minimally. Reports hunger. Denies any BM. Denies pain. Objective - Vital Signs/Intake and Output Vital Signs (last 24 hours): Temp Pulse Resp BP Pulse Ox 98.4 F 89 20 107/70 97 06/28/18 23:42 06/28/18 23:42 06/28/18 23:42 06/28/18 23:42 06/28/18 23:42 Intake and Output: 06/29/18 06/29/18 06:59 18:59 Intake Total 774 Output Total 150 Balance 624 - Medications Medications: Current Medications Acetaminophen (Tylenol 325mg Tab) 650 mg PO Q6 PRN PRN Reason: Fever >100.4 F Artificial Tears (Refresh Opth Soln) 0 ml OD Q6H PRN PRN Reason: Dry eyes Benzocaine/Menthol (Cepacol Sore Throat) 1 nyasia MT Q2H PRN PRN Reason: Sore Throat Last Admin: 06/27/18 03:01 Dose: 1 nyasia Diphenhydramine HCl (Benadryl) 50 mg PO Q8 PRN PRN Reason: Itching / Pruritus Last Admin: 06/17/18 02:56 Dose: 50 mg Docusate Sodium (Colace) 100 mg PO DAILY [facility] Last Admin: 06/27/18 10:00 Dose: Not Given Meropenem 500 mg/ Sodium (Chloride) 100 mls @ 100 mls/hr IVPB Q8H [facility]; Protocol Last Admin: 06/29/18 04:16 Dose: 100 mls/hr Potassium Phosphate 30 mmole/ (Amino Acids) 1,010 mls @ 83 mls/hr IV .[id number] [facility] Stop: 06/29/18 17:59 Last Admin: 06/29/18 06:29 Dose: 83 mls/hr Ferric Sodium Gluconate Complex 125 mg/ Sodium Chloride 110 mls @ 105 mls/hr IVPB QOD [facility] Stop: 07/06/18 11:03 Last Admin: 06/28/18 13:27 Dose: 105 mls/hr Isosorbide Dinitrate (Isordil) 5 mg PO BID [facility] Last Admin: 06/28/18 21:11 Dose: Not Given Levothyroxine Sodium (Synthroid) 175 mcg PO DAILY@0630 [facility] Last Admin: 06/29/18 06:14 Dose: Not Given Lidocaine (Lidoderm) 1 ea TD DAILY [facility] Last Admin: 06/28/18 11:00 Dose: 1 ea Metoclopramide HCl (Reglan) 10 mg IVP Q6H [facility] Last Admin: 06/29/18 04:15 Dose: 10 mg Morphine Sulfate (Morphine) 4 mg IVP Q4 PRN PRN Reason: Pain, severe (8-10) Last Admin: 06/29/18 02:17 Dose: 4 mg Ondansetron HCl (Zofran Inj) 4 mg IVP Q6 PRN PRN Reason: Nausea/Vomiting Last Admin: 06/26/18 08:26 Dose: 4 mg Pantoprazole Sodium (Protonix Inj) 40 mg IVP Q12H [facility] Last Admin: 06/29/18 04:29 Dose: 40 mg Phenol/Menthol (Phenaseptic 1.4% Throat [place]) 0 ml MT Q1H PRN PRN Reason: Sore Throat Last Admin: 06/28/18 04:21 Dose: 1 spray Scopolamine (Transderm-Scop) 1 patch TD Q3D [facility] Last Admin: 06/24/18 08:42 Dose: 1 patch Zolpidem Tartrate (Ambien) 5 mg PO HS PRN PRN Reason: Insomnia Last Admin: 06/27/18 02:58 Dose: 5 mg - Labs Labs: 06/28/18 07:07 06/28/18 07:07 PT 16.4 SECONDS (9.7-12.2) H 06/28/18 07:07 INR 1.5 06/28/18 07:07 APTT 32 SECONDS (21-34) 06/23/18 20:54 - Constitutional Appears: Non-toxic, No Acute Distress - Head Exam Head Exam: NORMAL INSPECTION - Eye Exam Eye Exam: Normal appearance - ENT Exam ENT Exam: Mucous Membranes Dry - Respiratory Exam Respiratory Exam: absent: Accessory Muscle Use, Respiratory Distress - Cardiovascular Exam Cardiovascular Exam: REGULAR RHYTHM. absent: Tachycardia - GI/Abdominal Exam GI & Abdominal Exam: Soft. absent: Distended, Tenderness Additional comments: midline c/d/i - Rectal Exam Rectal Exam: Deferred - Neurological Exam Neurological Exam: Alert, Awake, Oriented x3 - Psychiatric Exam Psychiatric exam: Normal Affect, Normal Mood - Skin Skin Exam: Normal Color, Warm Assessment and Plan - Assessment and Plan (Free Text) Assessment: 33F s/p subtotal colectomy Plan: ambulate Q2H labs pending will resume TPN lvx 30 pending bowel fx d/w Dr Shimon Khan, PGY4 <Landon Robins - Last Filed: 07/02/18 17:58> Objective - Vital Signs/Intake and Output Vital Signs (last 24 hours): Temp Pulse Resp BP Pulse Ox 98.4 F 78 20 108/69 98 07/02/18 15:00 07/02/18 15:00 07/02/18 15:00 07/02/18 15:00 07/02/18 15:00 Intake and Output: 07/02/18 07/02/18 06:59 18:59 Intake Total 598 1921 Output Total 100 150 Balance 498 1771 - Medications Medications: Current Medications Acetaminophen (Tylenol 325mg Tab) 650 mg PO Q6 PRN PRN Reason: Fever >100.4 F Artificial Tears (Refresh Opth Soln) 0 ml OD Q6H PRN PRN Reason: Dry eyes Benzocaine/Menthol (Cepacol Sore Throat) 1 nyasia MT Q2H PRN PRN Reason: Sore Throat Last Admin: 06/27/18 03:01 Dose: 1 nyasia Docusate Sodium (Colace) 100 mg PO DAILY [facility] Last Admin: 06/27/18 10:00 Dose: Not Given Enoxaparin Sodium (Lovenox) 30 mg SC DAILY [facility] Last Admin: 07/02/18 10:09 Dose: 30 mg Meropenem 500 mg/ Sodium (Chloride) 100 mls @ 100 mls/hr IVPB Q8H [facility]; Protocol Last Admin: 07/02/18 14:15 Dose: 100 mls/hr Ferric Sodium Gluconate Complex 125 mg/ Sodium Chloride 110 mls @ 105 mls/hr IVPB QOD [facility] Stop: 07/06/18 11:03 Last Admin: 07/02/18 10:22 Dose: 105 mls/hr Heparin Sodium (Porcine) 1,000 units/ Amino Acids/Electrolytes/Dextrose 1,001 mls @ 83 mls/hr IV .Q12H4M [facility] Stop: 07/02/18 17:59 Multivitamins/Vitamin C 10 ml/Chromium/Copper/Manganese/Zinc 1 ml/ Heparin Sodium ( Porcine) 1,000 units/ Amino Acids/Electrolytes/Dextrose 1,012 mls @ 83 mls/hr IV .[id number] ONE Stop: 07/03/18 06:11 Heparin Sodium (Porcine) 1,000 units/ Amino Acids/Electrolytes/Dextrose 1,001 mls @ 83 mls/hr IV .Q12H4M ONE Stop: 07/03/18 18:03 Fat Emulsion Intravenous (Intralipid 20%) 500 mls @ 42 mls/hr IV DAILY ONE Stop: 07/03/18 05:54 Isosorbide Dinitrate (Isordil) 5 mg PO BID [facility] Last Admin: 07/02/18 10:12 Dose: Not Given Levothyroxine Sodium (Synthroid) 175 mcg PO DAILY@0630 [facility] Last Admin: 07/02/18 05:30 Dose: 175 mcg Lidocaine (Lidoderm) 1 ea TD DAILY [facility] Last Admin: 07/02/18 10:08 Dose: 1 ea Metoclopramide HCl (Reglan) 10 mg IVP Q6H [facility] Last Admin: 07/02/18 17:14 Dose: 10 mg Morphine Sulfate (Morphine) 4 mg IVP Q4 PRN PRN Reason: Pain, severe (8-10) Morphine Sulfate (Morphine) 2 mg IVP Q4 PRN PRN Reason: Pain, moderate (4-7) Last Admin: 07/02/18 17:14 Dose: 2 mg Ondansetron HCl (Zofran Inj) 4 mg IVP Q6 PRN PRN Reason: Nausea/Vomiting Last Admin: 06/26/18 08:26 Dose: 4 mg Pantoprazole Sodium (Protonix Inj) 40 mg IVP Q12H [facility] Last Admin: 07/02/18 17:13 Dose: 40 mg Phenol/Menthol (Phenaseptic 1.4% Throat [place]) 0 ml MT Q1H PRN PRN Reason: Sore Throat Last Admin: 06/28/18 04:21 Dose: 1 spray Scopolamine (Transderm-Scop) 1 patch TD Q3D [facility] Last Admin: 06/30/18 12:36 Dose: 1 patch Zolpidem Tartrate (Ambien) 5 mg PO HS PRN PRN Reason: Insomnia Last Admin: 06/27/18 02:58 Dose: 5 mg - Labs Labs: 07/02/18 05:51 07/02/18 05:51 PT 16.4 SECONDS (9.7-12.2) H 06/28/18 07:07 INR 1.5 06/28/18 07:07 APTT 32 SECONDS (21-34) 06/23/18 20:54 Attending/Attestation - Attestation I have fully participated in the care of the patient.: Yes I have reviewed all pertinent clinical information, including history, physical exam and plan: Yes Notes (Text): Pt is improving clinically Passing Gas and No BM NG tube to LIS, TPN c/w current mx Plan d.w pt in detail
[2018-06-29 07:31] LABS: HEMOGLOBIN 8.1 g/dL (11.0-16.0); MEAN CELL VOLUME 87.1 fL (81.0-99.0); MEAN CORPUSCULAR HEMOGLOBIN 29.9 pg (27.0-31.0); MEAN CORPUSCULAR HGB CONC 34.4 g/dL (33.0-37.0); MEAN PLATELET VOLUME 8.4 fL (7.2-11.7); RBC 2.71 Mil/uL (3.80-5.20); RED CELL DISTRIBUTION WIDTH 14.2 % (11.5-14.5); WHITE BLOOD COUNT 8.3 K/uL (4.8-10.8)
[2018-06-29 07:49] LABS: ALBUMIN 2.5 g/dL (3.5-5.0); ALT/SGPT 25 U/L (9-52); AST/SGOT 19 U/L (14-36); BLOOD UREA NITROGEN 9 mg/dL (7-17); CALCIUM 7.2 mg/dl (8.6-10.4); GFR NON-AFRICAN AMERICAN > 60; HDL CHOLESTEROL 26 mg/dL (30-70)
[2018-06-29 07:59] LABS: LDL CHOLESTEROL 49 mg/dL (0-129)
[2018-06-29] MEDS: Lidocaine 5% Patch TD SCH (10:00)
--- NOTE | 2018-06-29 11:24 | CARD ---
APPROVED REPORT Date of service: 06/25/2018 EKG Measurement Heart [id number] NE [id number] <Conclusion> Normal sinus rhythm Normal ECG
--- NOTE | 2018-06-29 17:12 | CP.PCM.PN ---
Subjective - Date & Time of Evaluation Date of Evaluation: 06/29/18 Time of Evaluation: 07:00 - Subjective Subjective: bleeding from incision site NGT in place afeb and wbc wnl Objective - Vital Signs/Intake and Output Vital Signs (last 24 hours): Temp Pulse Resp BP Pulse Ox 98.7 F 86 20 97/65 L 97 06/29/18 15:24 06/29/18 15:24 06/29/18 15:24 06/29/18 15:24 06/29/18 15:24 Intake and Output: 06/29/18 06/29/18 06:59 18:59 Intake Total 774 664 Output Total 150 1300 Balance 624 -916 - Medications Medications: Current Medications Acetaminophen (Tylenol 325mg Tab) 650 mg PO Q6 PRN PRN Reason: Fever >100.4 F Artificial Tears (Refresh Opth Soln) 0 ml OD Q6H PRN PRN Reason: Dry eyes Benzocaine/Menthol (Cepacol Sore Throat) 1 nyasia MT Q2H PRN PRN Reason: Sore Throat Last Admin: 06/27/18 03:01 Dose: 1 nyasia Diphenhydramine HCl (Benadryl) 50 mg PO Q8 PRN PRN Reason: Itching / Pruritus Last Admin: 06/17/18 02:56 Dose: 50 mg Docusate Sodium (Colace) 100 mg PO DAILY [facility] Last Admin: 06/27/18 10:00 Dose: Not Given Meropenem 500 mg/ Sodium (Chloride) 100 mls @ 100 mls/hr IVPB Q8H [facility]; Protocol Last Admin: 06/29/18 13:38 Dose: 100 mls/hr Potassium Phosphate 30 mmole/ (Amino Acids) 1,010 mls @ 83 mls/hr IV .[id number] [facility] Stop: 06/29/18 17:59 Last Admin: 06/29/18 06:29 Dose: 83 mls/hr Ferric Sodium Gluconate Complex 125 mg/ Sodium Chloride 110 mls @ 105 mls/hr IVPB QOD [facility] Stop: 07/06/18 11:03 Last Admin: 06/28/18 13:27 Dose: 105 mls/hr Potassium Phosphate 30 mmole/Magnesium Sulfate 8.12 meq/Multivitamins/Vitamin C 10 ml/Chromium/Copper/Manganese/Zinc 1 ml/ Heparin Sodium ( Porcine) 1,000 units/ Amino Acids 1,024 mls @ 83 mls/hr IV .[id number] ONE Stop: 06/30/18 06:20 Potassium Phosphate 30 mmole/Magnesium Sulfate 8.12 meq/Heparin Sodium (Porcine) 1,000 units/ Amino Acids 1,013 mls @ 83 mls/hr IV .[id number] [facility] Stop: 06/30/18 17:59 Fat Emulsion Intravenous (Intralipid 20%) 500 mls @ 42 mls/hr IV ONCE ONE Stop: 07/01/18 05:54 Isosorbide Dinitrate (Isordil) 5 mg PO BID [facility] Last Admin: 06/29/18 10:00 Dose: Not Given Levothyroxine Sodium (Synthroid) 175 mcg PO DAILY@0630 [facility] Last Admin: 06/29/18 06:14 Dose: Not Given Lidocaine (Lidoderm) 1 ea TD DAILY [facility] Last Admin: 06/29/18 10:00 Dose: Not Given Metoclopramide HCl (Reglan) 10 mg IVP Q6H [facility] Last Admin: 06/29/18 11:00 Dose: Not Given Morphine Sulfate (Morphine) 4 mg IVP Q4 PRN PRN Reason: Pain, severe (8-10) Last Admin: 06/29/18 02:17 Dose: 4 mg Ondansetron HCl (Zofran Inj) 4 mg IVP Q6 PRN PRN Reason: Nausea/Vomiting Last Admin: 06/26/18 08:26 Dose: 4 mg Pantoprazole Sodium (Protonix Inj) 40 mg IVP Q12H [facility] Last Admin: 06/29/18 04:29 Dose: 40 mg Phenol/Menthol (Phenaseptic 1.4% Throat [place]) 0 ml MT Q1H PRN PRN Reason: Sore Throat Last Admin: 06/28/18 04:21 Dose: 1 spray Scopolamine (Transderm-Scop) 1 patch TD Q3D [facility] Last Admin: 06/24/18 08:42 Dose: 1 patch Zolpidem Tartrate (Ambien) 5 mg PO HS PRN PRN Reason: Insomnia Last Admin: 06/27/18 02:58 Dose: 5 mg - Labs Labs: 06/29/18 07:09 06/29/18 07:09 PT 16.4 SECONDS (9.7-12.2) H 06/28/18 07:07 INR 1.5 06/28/18 07:07 APTT 32 SECONDS (21-34) 06/23/18 20:54 - Constitutional Appears: Non-toxic, Chronically Ill - Head Exam Head Exam: NORMOCEPHALIC - Eye Exam Eye Exam: PERRL - ENT Exam ENT Exam: Mucous Membranes Dry - Neck Exam Neck Exam: absent: Lymphadenopathy - Respiratory Exam Respiratory Exam: Decreased Breath Sounds - Cardiovascular Exam Cardiovascular Exam: REGULAR RHYTHM - GI/Abdominal Exam GI & Abdominal Exam: Distended, Soft - Rectal Exam Rectal Exam: Deferred - Exam Exam: NORMAL INSPECTION - Extremities Exam Extremities Exam: absent: Pedal Edema - Back Exam Back Exam: absent: CVA tenderness (L), CVA tenderness (R) Assessment and Plan - Assessment and Plan (Free Text) Assessment: surgical re-eval in progress consider d/c antibiotics after 7 days
[2018-06-29] MEDS ORDERED: TPN CENTRAL LINE ONLY IV ONE (18:00)
[2018-06-30] MEDS: Morphine 4 MG/ML VIAL IVP PRN ×2 (02:51→23:09)
[2018-06-30] MEDS: Meropenem 500 MG in Sodium Chloride 0.9% 100 ML IVPB SCH ×3 (04:41→21:56)
[2018-06-30] MEDS: Levothyroxine 175 MCG TAB PO SCH (05:55)
[2018-06-30] MEDS ORDERED: TPN CENTRAL LINE IV SCH (06:20)
--- NOTE | 2018-06-30 08:08 | CP.PCM.PN ---
<Meek Sadler - Last Filed: 06/30/18 14:10> Subjective - Date & Time of Evaluation Date of Evaluation: 06/30/18 Time of Evaluation: 08:00 - Subjective Subjective: General Surgery Note for Dr. Robins Patient seen and examined at bedside. No acute event overnight. Patient reports very mild abd pain. She states its improved. She had 250cc from NGT last 24 hours. Admits to Passing flatus but no BM. She reports that she is hungry and intermittently ambulating. Objective - Vital Signs/Intake and Output Vital Signs (last 24 hours): Temp Pulse Resp BP Pulse Ox 98.3 F 62 20 97/62 L 98 06/29/18 23:45 06/29/18 23:45 06/29/18 23:45 06/29/18 23:45 06/29/18 23:45 Intake and Output: 06/30/18 06/30/18 06:59 18:59 Intake Total 1528 Output Total 150 Balance 1378 - Medications Medications: Current Medications Acetaminophen (Tylenol 325mg Tab) 650 mg PO Q6 PRN PRN Reason: Fever >100.4 F Artificial Tears (Refresh Opth Soln) 0 ml OD Q6H PRN PRN Reason: Dry eyes Benzocaine/Menthol (Cepacol Sore Throat) 1 nyasia MT Q2H PRN PRN Reason: Sore Throat Last Admin: 06/27/18 03:01 Dose: 1 nyasia Docusate Sodium (Colace) 100 mg PO DAILY [facility] Last Admin: 06/27/18 10:00 Dose: Not Given Enoxaparin Sodium (Lovenox) 30 mg SC DAILY [facility]PL[facility] Meropenem 500 mg/ Sodium (Chloride) 100 mls @ 100 mls/hr IVPB Q8H [facility]; Protocol Last Admin: 06/30/18 04:41 Dose: 100 mls/hr Ferric Sodium Gluconate Complex 125 mg/ Sodium Chloride 110 mls @ 105 mls/hr IVPB QOD [facility] Stop: 07/06/18 11:03 Last Admin: 06/28/18 13:27 Dose: 105 mls/hr Potassium Phosphate 30 mmole/Magnesium Sulfate 8.12 meq/Heparin Sodium (Porcine) 1,000 units/ Amino Acids 1,013 mls @ 83 mls/hr IV .[id number] REPLACED [facility] Stop: 06/30/18 17:59 Last Admin: 06/30/18 06:41 Dose: 83 mls/hr Fat Emulsion Intravenous (Intralipid 20%) 500 mls @ 42 mls/hr IV ONCE ONE Stop: 07/01/18 05:54 Isosorbide Dinitrate (Isordil) 5 mg PO BID [facility] Last Admin: 06/29/18 22:49 Dose: Not Given Levothyroxine Sodium (Synthroid) 175 mcg PO DAILY@0630 [facility] Last Admin: 06/30/18 05:55 Dose: Not Given Lidocaine (Lidoderm) 1 ea TD DAILY [facility] Last Admin: 06/29/18 10:00 Dose: Not Given Metoclopramide HCl (Reglan) 10 mg IVP Q6H [facility] Last Admin: 06/30/18 04:40 Dose: 10 mg Morphine Sulfate (Morphine) 4 mg IVP Q4 PRN PRN Reason: Pain, severe (8-10) Last Admin: 06/30/18 02:51 Dose: 4 mg Ondansetron HCl (Zofran Inj) 4 mg IVP Q6 PRN PRN Reason: Nausea/Vomiting Last Admin: 06/26/18 08:26 Dose: 4 mg Pantoprazole Sodium (Protonix Inj) 40 mg IVP Q12H [facility]PL[facility]ED [facility] Last Admin: 06/30/18 04:40 Dose: 40 mg Phenol/Menthol (Phenaseptic 1.4% Throat [place]) 0 ml MT Q1H PRN PRN Reason: Sore Throat Last Admin: 06/28/18 04:21 Dose: 1 spray Scopolamine (Transderm-Scop) 1 patch TD Q3D [facility]PL[facility] Last Admin: 06/24/18 08:42 Dose: 1 patch Zolpidem Tartrate (Ambien) 5 mg PO HS PRN PRN Reason: Insomnia Last Admin: 06/27/18 02:58 Dose: 5 mg - Labs Labs: 06/29/18 07:09 06/29/18 07:09 PT 16.4 SECONDS (9.7-12.2) H 06/28/18 07:07 INR 1.5 06/28/18 07:07 APTT 32 SECONDS (21-34) 06/23/18 20:54 - Additional Findings Additional findings: - Constitutional Appears: No Acute Distress - Head Exam Head Exam: NORMAL INSPECTION - ENT Exam ENT Exam: Mucous Membranes Dry - Respiratory Exam Respiratory Exam: absent: Accessory Muscle Use, Respiratory Distress - Cardiovascular Exam Cardiovascular Exam: REGULAR RHYTHM. absent: Tachycardia - GI/Abdominal Exam GI & Abdominal Exam: Soft. absent: Distended, Tenderness Additional comments: surgical sites clean, dry, intact - Rectal Exam Rectal Exam: Deferred - Neurological Exam Neurological Exam: Alert, Awake, Oriented x3 - Psychiatric Exam Psychiatric exam: Normal Affect, Normal Mood - Skin Skin Exam: Normal Color, Warm Assessment and Plan - Assessment and Plan (Free Text) Assessment: 33F s/p subtotal colectomy POD#19 Plan: NPO NGT Encourage ambulation TPN DVT ppx Strict I's & O's Serial abd exams Monitor for bowel function Discussed with Dr Shimon Sadler PGY2 <Landon Robins B - Last Filed: 07/02/18 17:59> Objective - Vital Signs/Intake and Output Vital Signs (last 24 hours): Temp Pulse Resp BP Pulse Ox 98.4 F 78 20 108/69 98 07/02/18 15:00 07/02/18 15:00 07/02/18 15:00 07/02/18 15:00 07/02/18 15:00 Intake and Output: 07/02/18 07/02/18 06:59 18:59 Intake Total 598 1921 Output Total 100 150 Balance 498 1771 - Medications Medications: Current Medications Acetaminophen (Tylenol 325mg Tab) 650 mg PO Q6 PRN PRN Reason: Fever >100.4 F Artificial Tears (Refresh Opth Soln) 0 ml OD Q6H PRN PRN Reason: Dry eyes Benzocaine/Menthol (Cepacol Sore Throat) 1 nyasia MT Q2H PRN PRN Reason: Sore Throat Last Admin: 06/27/18 03:01 Dose: 1 nyasia Docusate Sodium (Colace) 100 mg PO DAILY [facility]PL[facility] Last Admin: 06/27/18 10:00 Dose: Not Given Enoxaparin Sodium (Lovenox) 30 mg SC DAILY [facility]PL[facility] Last Admin: 07/02/18 10:09 Dose: 30 mg Meropenem 500 mg/ Sodium (Chloride) 100 mls @ 100 mls/hr IVPB Q8H REPLACED BY [facility]; Protocol Last Admin: 07/02/18 14:15 Dose: 100 mls/hr Ferric Sodium Gluconate Complex 125 mg/ Sodium Chloride 110 mls @ 105 mls/hr IVPB QOD REPLACED BY [facility] Stop: 07/06/18 11:03 Last Admin: 07/02/18 10:22 Dose: 105 mls/hr Heparin Sodium (Porcine) 1,000 units/ Amino Acids/Electrolytes/Dextrose 1,001 mls @ 83 mls/hr IV .Q12H4M REPLACED BY [facility] Stop: 07/02/18 17:59 Multivitamins/Vitamin C 10 ml/Chromium/Copper/Manganese/Zinc 1 ml/ Heparin Sodium ( Porcine) 1,000 units/ Amino Acids/Electrolytes/Dextrose 1,012 mls @ 83 mls/hr IV .[id number] ONE Stop: 07/03/18 06:11 Heparin Sodium (Porcine) 1,000 units/ Amino Acids/Electrolytes/Dextrose 1,001 mls @ 83 mls/hr IV .Q12H4M ONE Stop: 07/03/18 18:03 Fat Emulsion Intravenous (Intralipid 20%) 500 mls @ 42 mls/hr IV DAILY ONE Stop: 07/03/18 05:54 Isosorbide Dinitrate (Isordil) 5 mg PO BID [facility]PL[facility]ED BY [facility] Last Admin: 07/02/18 10:12 Dose: Not Given Levothyroxine Sodium (Synthroid) 175 mcg PO DAILY@0630 REPLACED BY [facility] Last Admin: 07/02/18 05:30 Dose: 175 mcg Lidocaine (Lidoderm) 1 ea TD DAILY [facility]PL[facility]ED [facility] Last Admin: 07/02/18 10:08 Dose: 1 ea Metoclopramide HCl (Reglan) 10 mg IVP Q6H REPLACED BY [facility] Last Admin: 07/02/18 17:14 Dose: 10 mg Morphine Sulfate (Morphine) 4 mg IVP Q4 PRN PRN Reason: Pain, severe (8-10) Morphine Sulfate (Morphine) 2 mg IVP Q4 PRN PRN Reason: Pain, moderate (4-7) Last Admin: 07/02/18 17:14 Dose: 2 mg Ondansetron HCl (Zofran Inj) 4 mg IVP Q6 PRN PRN Reason: Nausea/Vomiting Last Admin: 06/26/18 08:26 Dose: 4 mg Pantoprazole Sodium (Protonix Inj) 40 mg IVP Q12H REPLACED BY [facility] Last Admin: 07/02/18 17:13 Dose: 40 mg Phenol/Menthol (Phenaseptic 1.4% Throat [place]) 0 ml MT Q1H PRN PRN Reason: Sore Throat Last Admin: 06/28/18 04:21 Dose: 1 spray Scopolamine (Transderm-Scop) 1 patch TD Q3D [facility] Last Admin: 06/30/18 12:36 Dose: 1 patch Zolpidem Tartrate (Ambien) 5 mg PO HS PRN PRN Reason: Insomnia Last Admin: 06/27/18 02:58 Dose: 5 mg - Labs Labs: 07/02/18 05:51 07/02/18 05:51 PT 16.4 SECONDS (9.7-12.2) H 06/28/18 07:07 INR 1.5 06/28/18 07:07 APTT 32 SECONDS (21-34) 06/23/18 20:54 Attending/Attestation - Attestation I have personally seen and examined this patient.: Yes I have fully participated in the care of the patient.: Yes I have reviewed all pertinent clinical information, including history, physical exam and plan: Yes Notes (Text): Pt was seen and examined at bedside Agree with above note and assessment Pt is improving clinically Passing Gas and no BM C/w current mx CT scan of A/P on Monday Plan d.w pt in detail Risk and benefit explained in detail.
[2018-06-30 08:37] LABS: HEMOGLOBIN 8.9 g/dL (11.0-16.0); MEAN CELL VOLUME 87.1 fL (81.0-99.0); MEAN CORPUSCULAR HEMOGLOBIN 29.6 pg (27.0-31.0); MEAN CORPUSCULAR HGB CONC 33.9 g/dL (33.0-37.0); RBC 3.01 Mil/uL (3.80-5.20); RED CELL DISTRIBUTION WIDTH 14.3 % (11.5-14.5)
[2018-06-30 08:57] LABS: ALBUMIN 2.7 g/dL (3.5-5.0); ALT/SGPT 23 U/L (9-52); AST/SGOT 19 U/L (14-36); BLOOD UREA NITROGEN 13 mg/dL (7-17); CALCIUM 7.5 mg/dl (8.6-10.4); GFR NON-AFRICAN AMERICAN > 60
[2018-06-30] MEDS: Enoxaparin 30 mg Syringe SC SCH (10:52)
[2018-06-30] MEDS: Lidocaine 5% Patch TD SCH (10:53)
[2018-06-30] MEDS: Ferric Sodium Gluconat Complex 125 MG in Sodium Chloride 0.9% 100 ML IVPB SCH (11:53)
[2018-06-30] MEDS ORDERED: Fat Emulsion 20% IV 500 ML IV ONE (18:00)
[2018-06-30] MEDS ORDERED: TPN CENTRAL LINE IV ONE (18:00)
[2018-06-30] MEDS ORDERED: Lidocaine 2% Jelly (30 ml) TOP ONE (22:40)
[2018-07-01] MEDS: Morphine 4 MG/ML VIAL IVP PRN (03:59)
[2018-07-01] MEDS: Meropenem 500 MG in Sodium Chloride 0.9% 100 ML IVPB SCH ×3 (05:43→20:33)
[2018-07-01] MEDS ORDERED: TPN CENTRAL LINE IV SCH ×2 (06:12→18:00)
[2018-07-01 07:24] LABS: MEAN CELL VOLUME 87.2 fL (81.0-99.0); MEAN PLATELET VOLUME 8.4 fL (7.2-11.7); RBC 3.04 Mil/uL (3.80-5.20); RED CELL DISTRIBUTION WIDTH 14.1 % (11.5-14.5); WHITE BLOOD COUNT 9.3 K/uL (4.8-10.8)
[2018-07-01] MEDS: Levothyroxine 175 MCG TAB PO SCH (07:52)
[2018-07-01 08:22] LABS: HEMOGLOBIN 10.1 g/dL (11.0-16.0); MEAN CORPUSCULAR HEMOGLOBIN 30.9 pg (27.0-31.0)
[2018-07-01 08:23] LABS: MEAN CORPUSCULAR HGB CONC 35.1 g/dL (33.0-37.0)
--- NOTE | 2018-07-01 08:25 | CP.PCM.PN ---
<Meek Sadler - Last Filed: 07/01/18 08:22> Subjective - Date & Time of Evaluation Date of Evaluation: 07/01/18 Time of Evaluation: 08:22 - Subjective Subjective: General Surgery Note for Dr. Robins Patient seen and examined at bedside. Last night, patient removed NGT. It was reinserted. Patient reportsmild abd pain. S Admits to Passing flatus but no BM. She reports that she is hungry. Patient has not been ambulating much. She is very upset and wants to get better. Objective - Vital Signs/Intake and Output Vital Signs (last 24 hours): Temp Pulse Resp BP Pulse Ox 98.1 F 85 20 92/57 L 96 07/01/18 07:16 07/01/18 07:16 07/01/18 07:16 07/01/18 07:16 07/01/18 07:16 Intake and Output: 07/01/18 07/01/18 06:59 18:59 Intake Total 725 640 Output Total 750 Balance 725 -110 - Medications Medications: Current Medications Acetaminophen (Tylenol 325mg Tab) 650 mg PO Q6 PRN PRN Reason: Fever >100.4 F Artificial Tears (Refresh Opth Soln) 0 ml OD Q6H PRN PRN Reason: Dry eyes Benzocaine/Menthol (Cepacol Sore Throat) 1 nyasia MT Q2H PRN PRN Reason: Sore Throat Last Admin: 06/27/18 03:01 Dose: 1 nyasia Docusate Sodium (Colace) 100 mg PO DAILY [facility] Last Admin: 06/27/18 10:00 Dose: Not Given Enoxaparin Sodium (Lovenox) 30 mg SC DAILY [facility] Last Admin: 06/30/18 10:52 Dose: 30 mg Meropenem 500 mg/ Sodium (Chloride) 100 mls @ 100 mls/hr IVPB Q8H [facility]; Protocol Last Admin: 07/01/18 05:43 Dose: 100 mls/hr Ferric Sodium Gluconate Complex 125 mg/ Sodium Chloride 110 mls @ 105 mls/hr IVPB QOD [facility] Stop: 07/06/18 11:03 Last Admin: 06/30/18 11:53 Dose: 105 mls/hr Heparin Sodium (Porcine) 1,000 units/ Amino Acids/Electrolytes/Dextrose 1,001 mls @ 83 mls/hr IV .Q12H4M [facility] Stop: 07/01/18 17:59 Last Admin: 07/01/18 05:44 Dose: 83 mls/hr Isosorbide Dinitrate (Isordil) 5 mg PO BID [facility] Last Admin: 06/30/18 17:05 Dose: Not Given Levothyroxine Sodium (Synthroid) 175 mcg PO DAILY@0630 [facility] Last Admin: 07/01/18 07:52 Dose: 175 mcg Lidocaine (Lidoderm) 1 ea TD DAILY [facility] Last Admin: 06/30/18 10:53 Dose: 1 ea Metoclopramide HCl (Reglan) 10 mg IVP Q6H [facility] Last Admin: 07/01/18 04:13 Dose: Not Given Morphine Sulfate (Morphine) 4 mg IVP Q4 PRN PRN Reason: Pain, severe (8-10) Last Admin: 07/01/18 03:59 Dose: 4 mg Ondansetron HCl (Zofran Inj) 4 mg IVP Q6 PRN PRN Reason: Nausea/Vomiting Last Admin: 06/26/18 08:26 Dose: 4 mg Pantoprazole Sodium (Protonix Inj) 40 mg IVP Q12H [facility] Last Admin: 07/01/18 05:43 Dose: 40 mg Phenol/Menthol (Phenaseptic 1.4% Throat [place]) 0 ml MT Q1H PRN PRN Reason: Sore Throat Last Admin: 06/28/18 04:21 Dose: 1 spray Scopolamine (Transderm-Scop) 1 patch TD Q3D [facility] Last Admin: 06/30/18 12:36 Dose: 1 patch Zolpidem Tartrate (Ambien) 5 mg PO HS PRN PRN Reason: Insomnia Last Admin: 06/27/18 02:58 Dose: 5 mg - Labs Labs: 07/01/18 06:45 06/30/18 08:30 PT 16.4 SECONDS (9.7-12.2) H 06/28/18 07:07 INR 1.5 06/28/18 07:07 APTT 32 SECONDS (21-34) 06/23/18 20:54 - Additional Findings Additional findings: - Constitutional Appears: No Acute Distress - Head Exam Head Exam: NORMAL INSPECTION - ENT Exam ENT Exam: Mucous Membranes Dry - Respiratory Exam Respiratory Exam: absent: Accessory Muscle Use, Respiratory Distress - Cardiovascular Exam Cardiovascular Exam: REGULAR RHYTHM. absent: Tachycardia - GI/Abdominal Exam GI & Abdominal Exam: Soft. absent: Distended, Tenderness Additional comments: surgical sites clean, dry, intact - Rectal Exam Rectal Exam: Deferred - Neurological Exam Neurological Exam: Alert, Awake, Oriented x3 - Psychiatric Exam Psychiatric exam: Normal Affect, Normal Mood - Skin Skin Exam: Normal Color, Warm Assessment and Plan - Assessment and Plan (Free Text) Assessment: 33F s/p subtotal colectomy POD#20 Plan: NPO NGT Encourage ambulation TPN DVT ppx Strict I's & O's Serial abd exams Monitor for bowel function CT abd/pelvis after bowel movement NGT has to stay in until CT scan is done following bowel function Discussed with Dr Shimon Sadler PGY2 <Landon Robins B - Last Filed: 07/02/18 18:00> Objective - Vital Signs/Intake and Output Vital Signs (last 24 hours): Temp Pulse Resp BP Pulse Ox 98.4 F 78 20 108/69 98 07/02/18 15:00 07/02/18 15:00 07/02/18 15:00 07/02/18 15:00 07/02/18 15:00 Intake and Output: 07/02/18 07/02/18 06:59 18:59 Intake Total 598 1921 Output Total 100 150 Balance 498 1771 - Medications Medications: Current Medications Acetaminophen (Tylenol 325mg Tab) 650 mg PO Q6 PRN PRN Reason: Fever >100.4 F Artificial Tears (Refresh Opth Soln) 0 ml OD Q6H PRN PRN Reason: Dry eyes Benzocaine/Menthol (Cepacol Sore Throat) 1 nyasia MT Q2H PRN PRN Reason: Sore Throat Last Admin: 06/27/18 03:01 Dose: 1 nyasia Docusate Sodium (Colace) 100 mg PO DAILY [facility] Last Admin: 06/27/18 10:00 Dose: Not Given Enoxaparin Sodium (Lovenox) 30 mg SC DAILY [facility] Last Admin: 07/02/18 10:09 Dose: 30 mg Meropenem 500 mg/ Sodium (Chloride) 100 mls @ 100 mls/hr IVPB Q8H [facility]; Protocol Last Admin: 07/02/18 14:15 Dose: 100 mls/hr Ferric Sodium Gluconate Complex 125 mg/ Sodium Chloride 110 mls @ 105 mls/hr IVPB QOD [facility] Stop: 07/06/18 11:03 Last Admin: 07/02/18 10:22 Dose: 105 mls/hr Multivitamins/Vitamin C 10 ml/Chromium/Copper/Manganese/Zinc 1 ml/ Heparin Sodium ( Porcine) 1,000 units/ Amino Acids/Electrolytes/Dextrose 1,012 mls @ 83 mls/hr IV .[id number] [facility] Stop: 07/03/18 06:11 Heparin Sodium (Porcine) 1,000 units/ Amino Acids/Electrolytes/Dextrose 1,001 mls @ 83 mls/hr IV .Q12H4M [facility] Stop: 07/03/18 18:03 Fat Emulsion Intravenous (Intralipid 20%) 500 mls @ 42 mls/hr IV DAILY [facility] Stop: 07/03/18 05:54 Isosorbide Dinitrate (Isordil) 5 mg PO BID [facility] Last Admin: 07/02/18 10:12 Dose: Not Given Levothyroxine Sodium (Synthroid) 175 mcg PO DAILY@0630 [facility] Last Admin: 07/02/18 05:30 Dose: 175 mcg Lidocaine (Lidoderm) 1 ea TD DAILY [facility] Last Admin: 07/02/18 10:08 Dose: 1 ea Metoclopramide HCl (Reglan) 10 mg IVP Q6H [facility] Last Admin: 07/02/18 17:14 Dose: 10 mg Morphine Sulfate (Morphine) 4 mg IVP Q4 PRN PRN Reason: Pain, severe (8-10) Morphine Sulfate (Morphine) 2 mg IVP Q4 PRN PRN Reason: Pain, moderate (4-7) Last Admin: 07/02/18 17:14 Dose: 2 mg Ondansetron HCl (Zofran Inj) 4 mg IVP Q6 PRN PRN Reason: Nausea/Vomiting Last Admin: 06/26/18 08:26 Dose: 4 mg Pantoprazole Sodium (Protonix Inj) 40 mg IVP Q12H [facility] Last Admin: 07/02/18 17:13 Dose: 40 mg Phenol/Menthol (Phenaseptic 1.4% Throat [place]) 0 ml MT Q1H PRN PRN Reason: Sore Throat Last Admin: 06/28/18 04:21 Dose: 1 spray Scopolamine (Transderm-Scop) 1 patch TD Q3D [facility] Last Admin: 06/30/18 12:36 Dose: 1 patch Zolpidem Tartrate (Ambien) 5 mg PO HS PRN PRN Reason: Insomnia Last Admin: 06/27/18 02:58 Dose: 5 mg - Labs Labs: 07/02/18 05:51 07/02/18 05:51 PT 16.4 SECONDS (9.7-12.2) H 06/28/18 07:07 INR 1.5 06/28/18 07:07 APTT 32 SECONDS (21-34) 06/23/18 20:54 Attending/Attestation - Attestation I have fully participated in the care of the patient.: Yes I have reviewed all pertinent clinical information, including history, physical exam and plan: Yes Notes (Text): Pt is improving clinically Reinsert NG tube NPO, TPN CT scan of A/P in am OOB to walk Plan d.w pt in detail.
[2018-07-01 09:14] LABS: BLOOD UREA NITROGEN 13 mg/dL (7-17); GFR NON-AFRICAN AMERICAN > 60
[2018-07-01 09:15] LABS: ALB/GLOB RATIO 0.9 (1.0-2.1); ALBUMIN 2.7 g/dL (3.5-5.0); AST/SGOT 36 U/L (14-36); CALCIUM 7.9 mg/dl (8.6-10.4)
[2018-07-01 09:16] LABS: ALT/SGPT 31 U/L (9-52)
[2018-07-01] MEDS: Enoxaparin 30 mg Syringe SC SCH (10:22)
[2018-07-01] MEDS: Lidocaine 5% Patch TD SCH (10:23)
[2018-07-01] MEDS ORDERED: Morphine 4 MG/ML VIAL IVP PRN (18:43)
[2018-07-01] MEDS ORDERED: Dextrose 50% SYRINGE Inj (50 ml) IV STA (21:12)
[2018-07-02] MEDS: Meropenem 500 MG in Sodium Chloride 0.9% 100 ML IVPB SCH ×3 (05:28→21:45)
[2018-07-02] MEDS: Levothyroxine 175 MCG TAB PO SCH (05:30)
[2018-07-02 05:58] LABS: MEAN CELL VOLUME 88.2 fL (81.0-99.0); MEAN PLATELET VOLUME 8.2 fL (7.2-11.7); RBC 3.01 Mil/uL (3.80-5.20); RED CELL DISTRIBUTION WIDTH 14.3 % (11.5-14.5); WHITE BLOOD COUNT 7.5 K/uL (4.8-10.8)
[2018-07-02] MEDS ORDERED: TPN CENTRAL LINE IV SCH (06:12)
[2018-07-02 06:25] LABS: ALBUMIN 2.9 g/dL (3.5-5.0); ALT/SGPT 42 U/L (9-52); AST/SGOT 55 U/L (14-36); BLOOD UREA NITROGEN 15 mg/dL (7-17); CALCIUM 8.2 mg/dl (8.6-10.4); GFR NON-AFRICAN AMERICAN > 60
[2018-07-02] MEDS ORDERED: Iohexol 240 (50 ml) PO ONE (09:15)
[2018-07-02] MEDS: Lidocaine 5% Patch TD SCH (10:08)
[2018-07-02] MEDS: Enoxaparin 30 mg Syringe SC SCH (10:09)
[2018-07-02] MEDS: Ferric Sodium Gluconat Complex 125 MG in Sodium Chloride 0.9% 100 ML IVPB SCH (10:22)
--- NOTE | 2018-07-02 15:17 | CT ---
Date of service: 07/02/2018 PROCEDURE: CT Abdomen and Pelvis without intravenous contrast HISTORY: eval anastomosis COMPARISON: Comparison is made to the previous study dated 06/27/2018 TECHNIQUE: Axial and reformatted coronal and sagittal CT images of the abdomen and pelvis were obtained after oral contrast administration. No IV contrast was given.. Contrast dose: 0 IV contrast Radiation dose: Total exam DLP = 450.69 mGy-cm. This CT exam was performed using one or more of the following dose reduction techniques: Automated exposure control, adjustment of the mA and/or kV according to patient size, and/or use of iterative reconstruction technique. FINDINGS: LOWER THORAX: No evidence of acute pathology at the lung bases LIVER: Unremarkable. No gross lesion or ductal dilatation. GALLBLADDER AND BILE DUCTS: Unremarkable. PANCREAS: Unremarkable. No gross lesion or ductal dilatation. SPLEEN: Unremarkable. ADRENALS: Unremarkable. No mass. KIDNEYS AND URETERS: Unremarkable. No hydronephrosis. No solid mass. VASCULATURE: Unremarkable. No aortic aneurysm. No aortic atherosclerotic calcification or mural plaque present. BOWEL: Postsurgical changes and bowel anastomosis is noted at the left mid abdomen. The oral contrast did not reach the bowel anastomosis area. Delayed images well helpful. The previously noted moderately to markedly dilated small bowel loops have improved since the previous exam. APPENDIX: The appendix is not visualized. PERITONEUM: There is a small amount of free fluid in the abdomen and pelvis. LYMPH NODES: Unremarkable. No enlarged lymph nodes. BLADDER: Unremarkable. REPRODUCTIVE: Unremarkable. BONES: No acute fracture. OTHER FINDINGS: None. IMPRESSION: The oral contrast did not reach the bowel anastomosis. Delayed images would be helpful if clinically warranted. Interval improvement in the previously seen dilated small bowel loops. No evidence of oral contrast extravasation or discrete abscess formation in this study. Small amount of ascites in the abdomen and pelvis.
[2018-07-02] MEDS ORDERED: Fat Emulsion 20% IV 500 ML IV ONE (18:00)
[2018-07-02] MEDS ORDERED: TPN CENTRAL LINE ONLY IV ONE (18:00)
[2018-07-03] MEDS: Meropenem 500 MG in Sodium Chloride 0.9% 100 ML IVPB SCH (04:41)
[2018-07-03] MEDS ORDERED: TPN CENTRAL LINE ONLY IV ONE (06:00)
[2018-07-03] MEDS: Levothyroxine 175 MCG TAB PO SCH (06:42)
[2018-07-03 08:29] VITALS: TEMP 98; O2SAT 99
--- NOTE | 2018-07-03 08:38 | CP.PCM.DIS ---
Provider - Provider Date of Admission: 06/11/18 15:23 Attending physician: Landon Robins MD Time Spent in preparation of Discharge (in minutes): 45 Diagnosis - Discharge Diagnosis (1) S/P colectomy Status: Acute Hospital Course - Lab Results Lab Results: Micro Results 06/25/18 19:39 Blood Blood Culture - Final NO GROWTH AFTER 5 DAYS 06/25/18 19:39 Blood Gram Stain - Final TEST NOT PERFORMED 06/25/18 22:24 Urine Urine Culture - Final No Growth (<1,000 CFU/ML) Most Recent Lab Values WBC 7.5 K/uL (4.8-10.8) 07/02/18 05:51 RBC 3.01 Mil/uL (3.80-5.20) L 07/02/18 05:51 Hgb 9.0 g/dL (11.0-16.0) L 07/02/18 05:51 Hct 26.6 % (34.0-47.0) L 07/02/18 05:51 MCV 88.2 fL (81.0-99.0) 07/02/18 05:51 MCH 30.0 pg (27.0-31.0) 07/02/18 05:51 MCHC 34.0 g/dL (33.0-37.0) 07/02/18 05:51 RDW 14.3 % (11.5-14.5) 07/02/18 05:51 Plt Count 299 K/uL (130-400) 07/02/18 05:51 MPV 8.2 fL (7.2-11.7) 07/02/18 05:51 Neut % (Auto) 77.9 % (50.0-75.0) H 06/28/18 07:07 Lymph % (Auto) 13.9 % (20.0-40.0) L 06/28/18 07:07 [place] % (Auto) 4.0 % (0.0-10.0) 06/28/18 07:07 Eos % (Auto) 3.8 % (0.0-4.0) 06/28/18 07:07 Baso % (Auto) 0.4 % (0.0-2.0) 06/28/18 07:07 Neut # (Auto) 7.3 K/uL (1.8-7.0) H 06/28/18 07:07 Lymph # (Auto) 1.3 K/uL (1.0-4.3) 06/28/18 07:07 [place] # (Auto) 0.4 K/uL (0.0-0.8) 06/28/18 07:07 Eos # (Auto) 0.4 K/uL (0.0-0.7) 06/28/18 07:07 Baso # (Auto) 0.0 K/uL (0.0-0.2) 06/28/18 07:07 Neutrophils % (Manual) 50 % (50-75) 06/26/18 07:54 Band Neutrophils % 32 % (0-2) H* 06/26/18 07:54 Lymphocytes % (Manual) 14 % (20-40) L 06/26/18 07:54 Monocytes % (Manual) 1 % (0-10) 06/26/18 07:54 Metamyelocytes % 1 % (0-0) H 06/26/18 07:54 Myelocytes % 2 % (0-0) H 06/26/18 07:54 Platelet Estimate Slightly increased (NORMAL) H 06/26/18 07:54 RBC Morphology Normal 06/26/18 07:54 Hypochromasia (manual) Slight 06/12/18 06:27 Poikilocytosis (manual Slight 06/12/18 06:27 Anisocytosis (manual) Slight 06/12/18 06:27 PT 16.4 SECONDS (9.7-12.2) H 06/28/18 07:07 INR 1.5 06/28/18 07:07 APTT 32 SECONDS (21-34) 06/23/18 20:54 Puncture Site Rba 06/25/18 17:20 pCO2 29 mm/Hg (35-45) L 06/25/18 17:20 pO2 100 mm/Hg (80-100) 06/25/18 17:20 HCO3 17.0 mmol/L (21-28) L 06/25/18 17:20 ABG pH 7.31 (7.35-7.45) L 06/25/18 17:20 ABG Total CO2 15.5 mmol/L (22-28) L 06/25/18 17:20 ABG O2 Saturation 95.6 % (95-98) 06/25/18 17:20 ABG Base Excess -10.2 mmol/L (-2.0-3.0) L 06/25/18 17:20 [place] Test Na 06/25/18 17:20 ABG Potassium 4.8 mmol/L (3.6-5.2) 06/25/18 17:20 A-a O2 Difference 13.0 mm/Hg 06/25/18 17:20 Respiratory Index 0.1 06/25/18 17:20 Sodium 125.0 mmol/l (132-148) L 06/25/18 17:20 Chloride 99.0 mmol/L (98-107) 06/25/18 17:20 Glucose 80 mg/dl (65-105) 06/25/18 17:20 Lactate 0.9 mmol/L (0.7-2.1) 06/25/18 17:20 Liter Flow 0 06/25/18 17:20 FiO2 21.0 % 06/25/18 17:20 Sodium 135 mmol/L (132-148) 07/02/18 05:51 Potassium 4.1 mmol/L (3.6-5.2) 07/02/18 05:51 Chloride 100 mmol/L (98-107) 07/02/18 05:51 Carbon Dioxide 28 mmol/L (22-30) 07/02/18 05:51 Anion Gap 12 (10-20) 07/02/18 05:51 BUN 15 mg/dL (7-17) 07/02/18 05:51 Creatinine 0.4 mg/dL (0.7-1.2) L 07/02/18 05:51 Est GFR ( Amer) > 60 07/02/18 05:51 Est GFR (Non-Af Amer) > 60 07/02/18 05:51 POC Glucose (mg/dL) 103 mg/dL (65-110) 07/03/18 06:33 Random Glucose 90 mg/dL (65-105) 07/02/18 05:51 Calcium 8.2 mg/dl (8.6-10.4) L 07/02/18 05:51 Phosphorus 3.1 mg/dL (2.5-4.5) 07/02/18 05:51 Magnesium 2.1 mg/dL (1.6-2.3) 07/02/18 05:51 Total Bilirubin 0.3 mg/dL (0.2-1.3) 07/02/18 05:51 AST 55 U/L (14-36) H D 07/02/18 05:51 ALT 42 U/L (9-52) 07/02/18 05:51 Alkaline Phosphatase 70 U/L (38-126) 07/02/18 05:51 Total Protein 5.9 g/dL (6.3-8.3) L 07/02/18 05:51 Albumin 2.9 g/dL (3.5-5.0) L 07/02/18 05:51 Globulin 2.9 gm/dL (2.2-3.9) 07/02/18 05:51 Albumin/Globulin Ratio 1.0 (1.0-2.1) 07/02/18 05:51 Triglycerides 43 mg/dL (0-149) D 06/29/18 07:09 Cholesterol 70 mg/dL (0-199) 06/29/18 07:09 LDL Cholesterol Direct 49 mg/dL (0-129) 06/29/18 07:09 HDL Cholesterol 26 mg/dL (30-70) L 06/29/18 07:09 Arterial Blood Potassium 4.8 mmol/L (3.6-5.2) 06/25/18 17:20 Urine Color [place]is (YELLOW) 06/25/18 08:00 Urine Clarity Hazy (Clear) 06/25/18 08:00 Urine pH 5.0 (5.0-8.0) 06/25/18 08:00 Ur Specific [place] 1.004 (1.003-1.030) 06/25/18 08:00 Urine Protein 1+ mg/dL (NEGATIVE) H 06/25/18 08:00 Urine Glucose (UA) Normal mg/dL (Normal) 06/25/18 08:00 Urine Ketones Negative mg/dL (NEGATIVE) 06/25/18 08:00 Urine Blood 3+ (NEGATIVE) H 06/25/18 08:00 Urine Nitrate Negative (NEGATIVE) 06/25/18 08:00 Urine Bilirubin Negative (NEGATIVE) 06/25/18 08:00 Urine Urobilinogen Normal mg/dL (0.2-1.0) 06/25/18 08:00 Ur Leukocyte Esterase Neg [place]/uL (Negative) 06/25/18 08:00 Urine WBC (Auto) 4 /hpf (0-5) 06/25/18 08:00 Urine RBC (Auto) 14 /hpf (0-3) H 06/25/18 08:00 Ur Squamous Epith Cells 1 /hpf (0-5) 06/25/18 08:00 Urine Bacteria Occ (<OCC) H 06/25/18 08:00 Urine HCG, Qual Negative (NEGATIVE) 06/27/18 14:33 Blood Type A NEGATIVE 06/27/18 09:04 Antibody Screen Negative 06/27/18 09:04 - Hospital Course Hospital Course: Pt is a 33 y/o female, PMH of megacolon, achalasia and hypothyroidism, presented with cc of chronic constipation. Pt is s/p colectomy with Dr. Robins on 06/11/18. During her hospital stay, she developed an ileus and SBO that was conservatively managed with NGT and portal vein thrombosis that was treated with anticoagulation. She has regained complete bowel function, with daily bowel movements. She is tolerating a full liquid diet and ambulating well. Pt will be discharged with instructions to f/u with Dr. Robins in his office in 1-2 weeks, and given oral anticoagulation, stool softeners and pain control medication. Discharge Exam - Head Exam Head Exam: ATRAUMATIC, NORMAL INSPECTION, NORMOCEPHALIC - Eye Exam Eye Exam: EOMI, Normal appearance, PERRL - ENT Exam ENT Exam: Mucous Membranes Moist, Normal Exam - Respiratory Exam Respiratory Exam: Clear to PA & Lateral, NORMAL BREATHING PATTERN. absent: Accessory Muscle Use - Cardiovascular Exam Cardiovascular Exam: REGULAR RHYTHM, +S1, +S2 - GI/Abdominal Exam GI & Abdominal Exam: Normal Bowel Sounds, Soft. absent: Distended, Firm, Guarding, Hernia, Rigid Additional comments: incisions dry, clean and well healed - Extremities Exam Extremities exam: normal capillary refill, normal inspection - Neurological Exam Neurological exam: Alert, CN II-XII Intact, Oriented x3 - Psychiatric Exam Psychiatric exam: Normal Affect, Normal Mood - Skin Skin Exam: Intact, Normal Color, Warm Additional comments: incisions on abdomen are clean, dry and well healed. Discharge Plan - Discharge Medications Prescriptions: Docusate Sodium [Colace] 100 mg PO BID #60 capsule traMADol [Ultram] 50 mg PO Q6 PRN #20 tab PRN Reason: Pain, Moderate (4-7) Warfarin [Coumadin] 3 mg PO 1800 #30 tab - Follow Up Plan Condition: GOOD Disposition: HOME/ ROUTINE Instructions: Colectomy Additional Instructions: Follow up with Dr. Robins in his office in 1-2 weeks. Continue full liquid diet until follow-up visit. Take coumadin 3mg one tablet daily and have INR checked weekly. Take colace 100mg as needed for constipation and ultram 50mg every 6hrs as needed for moderate pain. Continue to ambulate daily and keep surgical incision site clean and dry. OK to shower Referrals: Landon Robins MD [Staff Provider] - Casey Teresa MD [Staff Provider] -
[2018-07-03] MEDS: Enoxaparin 30 mg Syringe SC SCH (09:57)
[2018-07-03] MEDS: Lidocaine 5% Patch TD SCH (09:57)
[2018-07-03 11:19] VITALS: BP 112/76; PULSE 78
== END 2018-07-03 11:00 | disposition home or self-care (01) | DRG 329 ==
LOC: C.SDS 06:02 → C.9S 15:23 → C.3T 17:37 → C.5S 06-25 14:56
PROVIDERS: ADMIT Surgery Surgical Critical Care; ATTEND Surgery Surgical Critical Care
PROC: 0DBE0ZZ Excision of Large Intestine, Open Approach (ICD-10-PCS; 2018-06-11)
PROC: 0DNW0ZZ Release Peritoneum, Open Approach (ICD-10-PCS; 2018-06-11)
PROC: 02HV33Z Insertion of Infusion Device into Superior Vena Cava, Percutaneous Approach (ICD-10-PCS; principal; 2018-06-28)
DX: K59.39 Other megacolon (principal); I81 Portal vein thrombosis; K56.609 Unspecified intestinal obstruction, unspecified as to partial versus complete obstruction; I47.2 Ventricular tachycardia; K56.7 Ileus, unspecified; N17.9 Acute kidney failure, unspecified; Q43.1 Hirschsprung's disease; K59.00 Constipation, unspecified; K59.09 Other constipation; E03.9 Hypothyroidism, unspecified; K66.0 Peritoneal adhesions (postprocedural) (postinfection); D72.829 Elevated white blood cell count, unspecified

== ENCOUNTER 2018-07-03 18:38 | Observation (INO) | payer MEDICAID, SELFPAY ==
[2018-07-03 18:38] VITALS: BMI 23.2
[2018-07-03] MEDS ORDERED: Sodium Chloride 0.9% 1,000 ML IV STA (19:57)
[2018-07-03 20:13] LABS: BASO # 0.1 K/uL (0.0-0.2); BASO % 1.1 % (0.0-2.0); EOS # 0.1 K/uL (0.0-0.7); EOS % 1.7 % (0.0-4.0); HEMOGLOBIN 10.8 g/dL (11.0-16.0); LYMPH % 22.1 % (20.0-40.0); MEAN CELL VOLUME 87.5 fL (81.0-99.0); MEAN CORPUSCULAR HGB CONC 34.3 g/dL (33.0-37.0); MEAN PLATELET VOLUME 8.5 fL (7.2-11.7); MONO # 0.5 K/uL (0.0-0.8); NEUT # 6.1 K/uL (1.8-7.0); NEUT % 69.1 % (50.0-75.0); RBC 3.59 Mil/uL (3.80-5.20); RED CELL DISTRIBUTION WIDTH 14.4 % (11.5-14.5); WHITE BLOOD COUNT 8.9 K/uL (4.8-10.8)
[2018-07-03] MEDS ORDERED: Morphine 4 MG/ML VIAL ONE (20:14)
--- NOTE | 2018-07-03 20:15 | C.PDOC ---
History Of Present Illness 33 year old female presents to the ED c/o mid abdominal pain that started today at 13:30. Patient was discharged from the Hospital today s/p bowel obstruction colectomy. Patient states she was in the Hospital for 23 days, surgery was done on June [address] Robins. Patient states she vomited once today and had a bowel movement today. Patient took the pain medication prescribed to her at 13:00 today but she states pain persisted. Patient denies fever, chills, diarrhea, constipation, dysuria, hematuria, back pain, vaginal discharge, vaginal bleeding. Time Seen by Provider: 07/03/18 19:52 Chief Complaint (Nursing): Abdominal Pain History Per: Patient History/Exam Limitations: no limitations Onset/Duration Of Symptoms: Hrs Current Symptoms Are (Timing): Still Present Location Of Pain/Discomfort: Diffuse Radiation Of Pain To:: None Quality Of Discomfort: "Pain" Associated Symptoms: Nausea, Vomiting. denies: Diarrhea, Constipation, Urinary Symptoms Alleviating Factors: None Recent travel outside of the [place]: No Additional History Per: Patient Abnormal Vaginal Bleeding: No Past Medical History Reviewed: Historical Data, Nursing Documentation, Vital Signs Vital Signs: Last Vital Signs Temp 98.1 F 07/03/18 18:53 Pulse 105 H 07/03/18 18:53 Resp 24 07/03/18 18:53 BP 134/92 H 07/03/18 18:53 Pulse Ox 99 07/03/18 18:53 - Medical History PMH: Hyperthyroidism, Hypothyroidism, Migraine, Obstructive Bowel, Post Traumatic Stress Disorder Surgical History: Endoscopy Other Surgeries: colectomy Jun 11 - [facility] Procedures INSERT OF INFUSION PUMP INTO ABD SUBCU/FASCIA, PERC APPROACH (05/17/17) IRRIGATION OF LOWER GI USING IRRIGATING SUBSTANCE, ENDO (09/05/16) RESECTION OF RECTUM, PERCUTANEOUS ENDOSCOPIC APPROACH (05/17/17) RESECTION OF SIGMOID COLON, PERCUTANEOUS ENDOSCOPIC APPROACH (05/17/17) Family History: States: Unknown Family Hx - Social History Hx Tobacco Use: No Hx Alcohol Use: No Hx Substance Use: No - Immunization History Hx Tetanus Toxoid Vaccination: No Hx Influenza Vaccination: No Hx Pneumococcal Vaccination: No Review Of Systems Except As Marked, All Systems Reviewed And Found Negative. Gastrointestinal: Positive for: Vomiting, Abdominal Pain Physical Exam - Physical Exam Additional Physical Exam Comments: Constitutional: Appears uncomfortable Head: Normocephalic. Atraumatic. Eyes: PERRL. ENT: Moist mucous membranes. Neck: Supple. Cardiovascular: Regular rate. Radial pulse 2+ bilaterally. Chest: No tenderness. Respiratory: Clear to auscultation bilaterally. GI: Soft. Upper abdominal tenderness, guarding. Lower abdominal surgical incision covered by bandage, clean and dry. Back: No CVA tenderness. Musculoskeletal: No tenderness or swelling of extremities. Skin: No rash. Neurologic: Alert, no focal deficit. ED Course And Treatment - Laboratory Results Result Diagrams: 07/03/18 20:10 07/03/18 20:10 O2 Sat by Pulse Oximetry: 99 (ON RA) Pulse Ox Interpretation: Normal Medical Decision Making Medical Decision Making: Plan: * Labs * Morphine 4 mg IVP * IV fluids * Zofran 8 mg IVP * Urine culture * UA Abdomen X-Ray IMPRESSION: 1. Contrast is noted in the rectosigmoid. 2. Dilated loop of large bowel in the mid abdomen and left upper quadrant, measuring up to 9 cm. 3. On the upright view there is evidence of air-fluid level which is consistent with obstruction. 4. Consider follow-up with CT if clinically warranted Electronically signed on Jul 03, 2018 11:26:27 PM EDT by: Ernie Agee M.D., SAVANA Certified By [facility] Fellowship Trained MRI and CT Specialist Dr. Robins accepts patient to his service. administration vice president called, will place NG tube as per Dr. Robins. Disposition Discussed With : Landon Robins Doctor Will See Patient In The: Hospital - Disposition Disposition: HOSPITALIZED Disposition Time: 23:27 Condition: FAIR Forms: [facility] ([place]) - Clinical Impression Clinical Impression: Abdominal pain, S/P colectomy - Scribe Statement The provider has reviewed the documentation as recorded by the Scribe Afshin Mcduffie All medical record entries made by the Scribe were at my direction and pe rsonally dictated by me. I have reviewed the chart and agree that the record accurately reflects my personal performance of the history, physical exam, medical decision making, and the department course for this patient. I have also personally directed, reviewed, and agree with the discharge instructions and disposition.
[2018-07-03 20:22] LABS: INR 1.1; PROTHROMBIN TIME 11.7 SECONDS (9.7-12.2)
[2018-07-03 20:28] LABS: SQUAMOUS EPITHIAL 1 /hpf (0-5); URINE BACTERIA RARE (<OCC); URINE BILIRUBIN NEGATIVE (NEGATIVE); URINE BLOOD NEGATIVE (NEGATIVE); URINE CLARITY Hazy (Clear); URINE COLOR Yellow (YELLOW); URINE GLUCOSE (UA) NORMAL (Normal); URINE LEUKOCYTE ESTERASE TRACE Leu/uL (Negative); URINE PROTEIN 1+ mg/dL (NEGATIVE)
[2018-07-03 20:31] LABS: ALB/GLOB RATIO 1.1 (1.0-2.1); ALBUMIN 3.8 g/dL (3.5-5.0); ALT/SGPT 111 U/L (9-52); AST/SGOT 99 U/L (14-36); BLOOD UREA NITROGEN 16 mg/dL (7-17); CALCIUM 8.8 mg/dl (8.6-10.4); GFR NON-AFRICAN AMERICAN > 60; LIPASE 82 U/L (23-300)
[2018-07-03] MEDS ORDERED: HYDROmorphone 0.5 mg/0.5 ml ISec IVP PRN (23:40)
[2018-07-03] MEDS ORDERED: Enoxaparin 60 mg Syringe SC SCH ×2 (23:45→23:56)
[2018-07-04] MEDS ORDERED: Lactated Ringer's 1,000 ML ONE (00:06)
[2018-07-04] MEDS: Lactated Ringer's 1,000 ML IV SCH ×2 (00:27→09:45)
[2018-07-04] MEDS ORDERED: Oxycodone/Acetaminophen 5/325 mg Tab PO PRN ×3 (03:22→09:43)
[2018-07-04] MEDS: Simethicone 80 mg Chewtab PO SCH ×4 (03:37→17:52)
--- NOTE | 2018-07-04 03:37 | CP.PCM.HP ---
History of Present Illness - History of Present Illness History of Present Illness: 33 F w PMH of chronic consptipation that underwent colectomy came with abdominal pain. Pt was discharged yesterday and had persistent nausea, vomiting and abdominal pain. Pt also had regular BM. Non bloody emesis. Pt reports that pain start with abdominal discomfort 2/2 gas in stomach. Pain is located on epigastric area. Pt was sent home with Ultram but didn't help with pain. Morphine doesn't help with pain. Reports that dilaudid is the only pain medication that helps. Pt hasn't vomited since coming to ED. Denies fever, CP, SOB. PMH: achalasia, hypothyroidism, chronic constipation PSH: EGD and balloon dilation of esophagus, laparoscopic sigmoid colectomy converted to open Family: heart disease and diabetes (mother), cancer (father) Social: no smoking, no alcohol use. Meds: colace, miralax, levothyroxine. does not use pain medication at home. All: none Present on Admission - Present on Admission Any Indicators Present on Admission: No Review of Systems - Review of Systems Review of Systems: see HPI Past Patient History - Infectious Disease Hx of Infectious Diseases: None - Past Medical History & Family History Past Medical History?: Yes - Past Social History Smoking Status: Never Smoked - NEUROLOGICAL Hx Migraine: Yes - ENDOCRINE/METABOLIC Hx Hyperthyroidism: Yes Hx Hypothyroidism: Yes - MUSCULOSKELETAL/RHEUMATOLOGICAL Hx Musculoskeletal Disorders: Yes Hx Back Pain: Yes - GASTROINTESTINAL Hx Gastrointestinal Disorders: Yes Hx Bowel Surgery: Yes (PARTIAL COLECTOMY) Hx Constipation: Yes Other/Comment: CHAGAS SYNDROME, ACHALASIA - PSYCHIATRIC Hx Post Traumatic Stress Disorder: Yes Hx Substance Use: No - SURGICAL HISTORY Hx Surgeries: Yes Other/Comment: Partial colectomy - ANESTHESIA Hx Anesthesia: Yes Hx Anesthesia Reactions: No Hx Malignant Hyperthermia: No Meds Allergies/Adverse Reactions: Allergies Allergy/AdvReac Type Severity Reaction Status Date / Time No Known Allergies Allergy Verified 05/16/18 10:37 Physical Exam - Constitutional Appears: No Acute Distress - Head Exam Head Exam: ATRAUMATIC, NORMAL INSPECTION, NORMOCEPHALIC - Eye Exam Eye Exam: EOMI, Normal appearance, PERRL Pupil Exam: NORMAL ACCOMODATION, PERRL - ENT Exam ENT Exam: Mucous Membranes Moist, Normal Exam - Neck Exam Neck exam: Positive for: Normal Inspection - Respiratory Exam Respiratory Exam: NORMAL BREATHING PATTERN - Cardiovascular Exam Cardiovascular Exam: REGULAR RHYTHM - GI/Abdominal Exam GI & Abdominal Exam: Soft, Tenderness. absent: Distended, Firm, Guarding, Hernia, Mass, Rigid - Exam Exam: NORMAL INSPECTION - Extremities Exam Extremities exam: Positive for: normal inspection - Back Exam Back exam: NORMAL INSPECTION - Neurological Exam Neurological exam: Alert, CN II-XII Intact, Normal Gait, Oriented x3, Reflexes Normal - Psychiatric Exam Psychiatric exam: Normal Affect, Normal Mood - Skin Skin Exam: Dry, Intact, Normal Color, Warm Results - Vital Signs Recent Vital Signs: Last Vital Signs Temp 98.1 F 07/04/18 00:30 Pulse 75 07/04/18 00:30 Resp 18 07/04/18 00:30 BP 113/77 07/04/18 00:30 Pulse Ox 96 07/04/18 00:30 - Labs Result Diagrams: 07/03/18 20:10 07/03/18 20:10 Labs: Laboratory Results - last 24 hr 07/03/18 07/03/18 07/03/18 20:10 20:10 20:10 WBC 8.9 RBC 3.59 L Hgb 10.8 L Hct 31.4 L MCV 87.5 MCH 30.0 MCHC 34.3 RDW 14.4 Plt Count 396 MPV 8.5 Neut % (Auto) 69.1 Lymph % (Auto) 22.1 [place] % (Auto) 6.0 Eos % (Auto) 1.7 Baso % (Auto) 1.1 Neut # (Auto) 6.1 Lymph # (Auto) 2.0 [place] # (Auto) 0.5 Eos # (Auto) 0.1 Baso # (Auto) 0.1 PT 11.7 INR 1.1 APTT 34 Sodium 137 Potassium 4.5 Chloride 97 L Carbon Dioxide 26 Anion Gap 19 BUN 16 Creatinine 0.4 L Est GFR ( Amer) > 60 Est GFR (Non-Af Amer) > 60 Random Glucose 85 Calcium 8.8 Total Bilirubin 0.6 AST 99 H D ALT 111 H D Alkaline Phosphatase 113 Total Protein 7.2 Albumin 3.8 Globulin 3.4 Albumin/Globulin Ratio 1.1 Lipase 82 Urine Color Urine Clarity Urine pH Ur Specific [place] Urine Protein Urine Glucose (UA) Urine Ketones Urine Blood Urine Nitrate Urine Bilirubin Urine Urobilinogen Ur Leukocyte Esterase Urine WBC (Auto) Urine RBC (Auto) Ur Squamous Epith Cells Urine Bacteria Hyaline Casts Blood Type Antibody Screen 07/03/18 07/03/18 20:17 20:27 WBC RBC Hgb Hct MCV MCH MCHC RDW Plt Count MPV Neut % (Auto) Lymph % (Auto) [place] % (Auto) Eos % (Auto) Baso % (Auto) Neut # (Auto) Lymph # (Auto) [place] # (Auto) Eos # (Auto) Baso # (Auto) PT INR APTT Sodium Potassium Chloride Carbon Dioxide Anion Gap BUN Creatinine Est GFR ( Amer) Est GFR (Non-Af Amer) Random Glucose Calcium Total Bilirubin AST ALT Alkaline Phosphatase Total Protein Albumin Globulin Albumin/Globulin Ratio Lipase Urine Color Yellow Urine Clarity Hazy Urine pH 6.0 Ur Specific [place] 1.021 Urine Protein 1+ H Urine Glucose (UA) Normal Urine Ketones Negative Urine Blood Negative Urine Nitrate Negative Urine Bilirubin Negative Urine Urobilinogen 2.0 H Ur Leukocyte Esterase Trace Urine WBC (Auto) 13 H Urine RBC (Auto) 2 Ur Squamous Epith Cells 1 Urine Bacteria Rare Hyaline Casts 6-10 H Blood Type A NEGATIVE Antibody Screen Negative Assessment & Plan - Assessment and Plan (Free Text) Assessment: abdominal pain -NPO -NGT if starts to vomit -PO Pain med: will try percocet and toradol. Ultram didn't help with pain -Cymeticone -Synthroid -Coumadin and Lovenox for portal vein thrombosis -nausea control WIll DW Dr. Robins
[2018-07-04] MEDS: Levothyroxine 25 MCG TAB PO SCH (06:35)
--- NOTE | 2018-07-04 07:48 | RAD ---
Date of service: 07/03/2018 HISTORY: abd pain, recent colectomy COMPARISON: No prior. FINDINGS: BOWEL: Gas seen mildly distending numerous small bowel loops as well as oral contrast material with a few air-fluid levels identified at the left upper quadrant. No definite extravasation oral contrast material is appreciated. Anastomotic suture line is identified at the medial left julio cesar abdomen with oral contrast remaining in lumen of distal small bowel and rectum. Large-bowel is not identified compatible the clinical history of colectomy. Mild ileus pattern may be developing. Clinically correlate. Consider follow-up radiography. BONES: Normal. OTHER FINDINGS: None. IMPRESSION: No extravasated oral contrast material is appreciate throughout is small-bowel. Colon is not identified bilateral with clinical history of colectomy. Mild developing ileus is in question. Clinical correlation and consideration of follow-up radiography recommended.
[2018-07-04] MEDS: Enoxaparin 60 mg Syringe SC SCH ×2 (09:43→21:15)
[2018-07-04 16:26] VITALS: O2SAT 96
[2018-07-05] MEDS: Levothyroxine 25 MCG TAB PO SCH (05:51)
--- NOTE | 2018-07-05 08:00 | CP.PCM.DIS ---
Provider - Provider Date of Admission: 07/03/18 23:32 Attending physician: Landon Robins MD Time Spent in preparation of Discharge (in minutes): 35 Diagnosis - Discharge Diagnosis (1) Abdominal pain Status: Acute Priority: High (2) S/P colectomy Status: Acute Priority: High (3) Portal vein thrombosis Status: Chronic Priority: Medium (4) Nausea Status: Acute Priority: Medium (5) Hypothyroidism Status: Chronic Priority: Medium Hospital Course - Lab Results Lab Results: Most Recent Lab Values WBC 8.9 K/uL (4.8-10.8) 07/03/18 20:10 RBC 3.59 Mil/uL (3.80-5.20) L 07/03/18 20:10 Hgb 10.8 g/dL (11.0-16.0) L 07/03/18 20:10 Hct 31.4 % (34.0-47.0) L 07/03/18 20:10 MCV 87.5 fL (81.0-99.0) 07/03/18 20:10 MCH 30.0 pg (27.0-31.0) 07/03/18 20:10 MCHC 34.3 g/dL (33.0-37.0) 07/03/18 20:10 RDW 14.4 % (11.5-14.5) 07/03/18 20:10 Plt Count 396 K/uL (130-400) 07/03/18 20:10 MPV 8.5 fL (7.2-11.7) 07/03/18 20:10 Neut % (Auto) 69.1 % (50.0-75.0) 07/03/18 20:10 Lymph % (Auto) 22.1 % (20.0-40.0) 07/03/18 20:10 [place] % (Auto) 6.0 % (0.0-10.0) 07/03/18 20:10 Eos % (Auto) 1.7 % (0.0-4.0) 07/03/18 20:10 Baso % (Auto) 1.1 % (0.0-2.0) 07/03/18 20:10 Neut # (Auto) 6.1 K/uL (1.8-7.0) 07/03/18 20:10 Lymph # (Auto) 2.0 K/uL (1.0-4.3) 07/03/18 20:10 [place] # (Auto) 0.5 K/uL (0.0-0.8) 07/03/18 20:10 Eos # (Auto) 0.1 K/uL (0.0-0.7) 07/03/18 20:10 Baso # (Auto) 0.1 K/uL (0.0-0.2) 07/03/18 20:10 PT 11.7 SECONDS (9.7-12.2) 07/03/18 20:10 INR 1.1 07/03/18 20:10 APTT 34 SECONDS (21-34) 07/03/18 20:10 Sodium 137 mmol/L (132-148) 07/03/18 20:10 Potassium 4.5 mmol/L (3.6-5.2) 07/03/18 20:10 Chloride 97 mmol/L (98-107) L 07/03/18 20:10 Carbon Dioxide 26 mmol/L (22-30) 07/03/18 20:10 Anion Gap 19 (10-20) 07/03/18 20:10 BUN 16 mg/dL (7-17) 07/03/18 20:10 Creatinine 0.4 mg/dL (0.7-1.2) L 07/03/18 20:10 Est GFR ( Amer) > 60 07/03/18 20:10 Est GFR (Non-Af Amer) > 60 07/03/18 20:10 POC Glucose (mg/dL) 75 mg/dL (65-110) 07/05/18 06:04 Random Glucose 85 mg/dL (65-105) 07/03/18 20:10 Calcium 8.8 mg/dl (8.6-10.4) 07/03/18 20:10 Total Bilirubin 0.6 mg/dL (0.2-1.3) 07/03/18 20:10 AST 99 U/L (14-36) H D 07/03/18 20:10 ALT 111 U/L (9-52) H D 07/03/18 20:10 Alkaline Phosphatase 113 U/L (38-126) 07/03/18 20:10 Total Protein 7.2 g/dL (6.3-8.3) 07/03/18 20:10 Albumin 3.8 g/dL (3.5-5.0) 07/03/18 20: Globulin 3.4 gm/dL (2.2-3.9) 07/03/18 20:10 Albumin/Globulin Ratio 1.1 (1.0-2.1) 07/03/18 20: Lipase 82 U/L (23-300) 07/03/18 20: Urine Color Yellow (YELLOW) 07/03/18 20: Urine Clarity Hazy (Clear) 07/03/18 20: Urine pH 6.0 (5.0-8.0) 07/03/18: Ur Specific [place] 1.021 (1.003-1.030) 07/03/18: Urine Protein 1+ mg/dL (NEGATIVE) H 07/03/18 20:17 Urine Glucose (UA) Normal mg/dL (Normal) 07/03/18: Urine Ketones Negative mg/dL (NEGATIVE) 07/03/18: Urine Blood Negative (NEGATIVE) 07/03/18 20: Urine Nitrate Negative (NEGATIVE) 07/03/18 20: Urine Bilirubin Negative (NEGATIVE) 07/03/18: Urine Urobilinogen 2.0 mg/dL (0.2-1.0) H 07/03/18 20:17 Ur Leukocyte Esterase Trace [place]/uL (Negative) 07/03/18 20:17 Urine WBC (Auto) 13 /hpf (0-5) H 07/03/18 20: Urine RBC (Auto) 2 /hpf (0-3) 07/03/18 20: Ur Squamous Epith Cells 1 /hpf (0-5) 07/03/18 20:17 Urine Bacteria Rare (<OCC) 07/03/18: Hyaline Casts 6-10 /lpf (0-2) H 07/03/18 20: Blood Type A NEGATIVE 07/03/18:27 Antibody Screen Negative 07/03/18: - Hospital Course Hospital Course: Pt is a 33F who presented to the ED for abdominal pain. Patient was discharged day of presentation after being hospitalized for recovery after a subtotal colec jose elias for chronic severe colonic constipation. Patient was discharged from prior visit with PO ultram, but found at home that her abdominal pain was not adequately controlled with the ultram, and came to the hospital. Patient was hospitalized for pain control and restarted on her home meds, was tolerated pain well with PO percocet, tolerating liquid diet, ambulating, and having bowel function. Patient was discharged to home in good health with PO percocet, reglan, home medications, and instructions to follow up with Dr. Robins in his office and her primary physician For full hospital course, see chart Discharge Exam - Head Exam Head Exam: ATRAUMATIC, NORMAL INSPECTION, NORMOCEPHALIC - Eye Exam Eye Exam: EOMI, Normal appearance. absent: Conjunctival injection, Scleral icterus - ENT Exam ENT Exam: Mucous Membranes Moist, Normal Oropharynx - Respiratory Exam Respiratory Exam: NORMAL BREATHING PATTERN, UNREMARKABLE. absent: Accessory Muscle Use - Cardiovascular Exam Cardiovascular Exam: RRR - GI/Abdominal Exam GI & Abdominal Exam: Soft, Tenderness (sharmin-incisional mild tenderness). absent: Distended Additional comments: midline incision well approximated with small area of the inferior incision open with minimal serosanguinous drainage - Extremities Exam Extremities exam: normal inspection - Neurological Exam Neurological exam: Alert - Psychiatric Exam Psychiatric exam: Normal Affect, Normal Mood - Skin Skin Exam: Dry, Normal Color, Warm Discharge Plan - Discharge Medications Prescriptions: Metoclopramide [Reglan] 10 mg PO ACHS #42 tab - Follow Up Plan Condition: FAIR Disposition: HOME/ ROUTINE Instructions: Colectomy, Partial and Total, (DC) Additional Instructions: Follow up with Dr. Robins in his office in 2 weeks Follow up with your primary doctor in 1 week Take pain medication as needed, take reglan a few minutes before every meal. Call Dr. Robins's office or come to ER for any fevers >100.4F, severe vomiting, or any other concerning symptoms Do not lift >10 pounds for 4 weeks Referrals: Landon Robins MD [Staff Provider] -
[2018-07-05 08:46] VITALS: BP 116/83; PULSE 80; RESP 18; TEMP 98.5
[2018-07-05] MEDS: Simethicone 80 mg Chewtab PO SCH (10:33)
[2018-07-05] MEDS: Enoxaparin 60 mg Syringe SC SCH (10:33)
== END 2018-07-05 12:25 | disposition home or self-care (01) ==
LOC: C.ER 18:38 → C.9E 23:32 → C.5S 07-04 00:02
PROVIDERS: ADMIT Surgery Surgical Critical Care; ATTEND Surgery Surgical Critical Care
DX: R10.9 Unspecified abdominal pain (principal); Z90.49 Acquired absence of other specified parts of digestive tract; R11.0 Nausea; E03.9 Hypothyroidism, unspecified; I81 Portal vein thrombosis
CPT/HCPCS: 74019; 80053; 81001; 82948; 83690; 85025; 85610; 85730; 86850; 86900; 87086; 96360; 96374; 99285; C9113; G0378; J1650; J2270; J2405; J7030; J7120

== ENCOUNTER 2018-07-09 10:51 | Inpatient (IN) | payer MEDICAID, SELFPAY ==
[2018-07-09 10:56] VITALS: BMI 19.5
--- NOTE | 2018-07-09 11:14 | C.PDOC ---
Addendum entered and electronically signed by Marbella Ndiaye PA-C 07/12/18 19:09: Addendum Addendum: 07/12/18 19:09 signature Original Note: History Of Present Illness 33 year old female presents to the ED for evaluation of diffuse abdominal pain. Patient underwent surgery by Dr. Robins on June 11 and was discharged on July 05. Patient returns to the ED, stating her pain has worsened since her discharge. She is requesting Dilaudid and an evaluation by Dr. Robins. Patient denies fever, chills, nausea, vomiting. Time Seen by Provider: 07/09/18 11:05 Chief Complaint (Nursing): Abdominal Pain History Per: Patient History/Exam Limitations: no limitations Onset/Duration Of Symptoms: Days Current Symptoms Are (Timing): Worse Location Of Pain/Discomfort: Diffuse Radiation Of Pain To:: None Quality Of Discomfort: "Pain" Associated Symptoms: denies: Fever, Chills, Nausea, Vomiting Additional History Per: Patient Past Medical History Reviewed: Historical Data, Nursing Documentation, Vital Signs Vital Signs: Last Vital Signs Temp 97.5 F L 07/09/18 10:56 Pulse 145 H 07/09/18 10:56 Resp 22 07/09/18 10:56 BP Pulse Ox 100 07/09/18 10:56 - Medical History PMH: Hyperthyroidism, Hypothyroidism, Migraine, Obstructive Bowel, Post Traumatic Stress Disorder Surgical History: Endoscopy - [facility] Procedures EXCISION OF LARGE INTESTINE, OPEN APPROACH (06/11/18) INSERT OF INFUSION PUMP INTO ABD SUBCU/FASCIA, PERC APPROACH (05/17/17) INSERTION OF INFUSION DEV INTO SUP VENA CAVA, PERC APPROACH (06/11/18) IRRIGATION OF LOWER GI USING IRRIGATING SUBSTANCE, ENDO (09/05/16) RELEASE PERITONEUM, OPEN APPROACH (06/11/18) RESECTION OF RECTUM, PERCUTANEOUS ENDOSCOPIC APPROACH (05/17/17) RESECTION OF SIGMOID COLON, PERCUTANEOUS ENDOSCOPIC APPROACH (05/17/17) Family History: States: Unknown Family Hx - Social History Hx Tobacco Use: No Hx Alcohol Use: No Hx Substance Use: No - Immunization History Hx Tetanus Toxoid Vaccination: No Hx Influenza Vaccination: No Hx Pneumococcal Vaccination: No Review Of Systems Constitutional: Negative for: Fever, Chills Gastrointestinal: Positive for: Abdominal Pain. Negative for: Nausea, Vomiting Physical Exam - Physical Exam Appears: Non-toxic, Other (crying, uncomfortable, in painful distress ) Skin: Normal Color, Warm, Dry Head: Atraumatic, Normacephalic Eye(s): bilateral: Normal Inspection Oral Mucosa: Moist Neck: Supple Chest: Symmetrical, No Deformity, No Tenderness Cardiovascular: Rhythm Regular, No Murmur, Other (tachycardia ) Respiratory: Normal Breath Sounds, No Rales, No Rhonchi, No Wheezing Gastrointestinal/Abdominal: Soft, Tenderness (diffuse), No Guarding, No Rebound Extremity: Normal ROM, Capillary Refill (less than 2 seconds ) Neurological/Psych: Oriented x3, Normal Speech, Normal Cognition ED Course And Treatment - Laboratory Results Result Diagrams: 07/09/18 11:31 07/09/18 12:41 O2 Sat by Pulse Oximetry: 100 (on RA) Pulse Ox Interpretation: Normal - CT Scan/US CT A/P Other Rad Studies (CT/US): Read By Radiologist, Radiology Report Reviewed CT/US Interpretation: Date of service: 07/09/2018. PROCEDURE: CT Abdomen and Pelvis with contrast. HISTORY: severe abdominal pain, vomiting. COMPARISON: CT scan of the abdomen pelvis dated 07/02/2018. TECHNIQUE: Contrast dose: 100 mL Visipaque 320. Radiation dose: Total exam DLP = 261.06 mGy-cm. This CT exam was performed using one or more of the following dose reduction techniques: Automated exposure control, adjustment of the mA and/or kV according to patient size, and/or use of iterative reconstruction technique. FINDINGS: LOWER THORAX: Unremarkable. LIVER: 1.6 cm hepatic dome hemangioma redemonstrated. No gross lesion or ductal dilatation. GALLBLADDER AND BILE DUCTS: Unremarkable. PANCREAS: Unremarkable. No gross lesion or ductal dilatation. SPLEEN: Unremarkable. ADRENALS: Unremarkable. No mass. KIDNEYS AND URETERS: Unremarkable. No hydronephrosis. No solid mass. VASCULATURE: Unremarkable. No aortic aneurysm. No aortic atherosclerotic calcification or mural plaque present. BOWEL: Prior subtotal colectomy within ileocolic anastomosis in the left lower quadrant. Severe closed loop small-bowel obstruction with severe dilatation, measuring up to 5.2 cm, with origin and transition in the mid abdomen just to the left of the SMA (series 3, images 85-91). Foci of air in the periphery of dilated small-bowel loops for which pneumatosis intestinalis cannot be excluded. Small bowel is collapsed distal to the transition point. PERITONEUM: Unremarkable. Small amount of free fluid. No free air. LYMPH NODES: Unremarkable. No enlarged lymph nodes. BLADDER: Unremarkable. REPRODUCTIVE: Unremarkable. BONES: No acute fracture. OTHER FINDINGS: None. IMPRESSION: Severe closed loop small-bowel obstruction with origin and transition in the mid abdomen just to the left of the SMA as above described. Pneumatosis intestinalis cannot be excluded. Small amount of free fluid in the abdomen. Emergent surgical consultation is advised. Findings conveyed to LOY Ndiaye by Dr. Yoon at 2:58 p.m. on 07/09/2018. Progress Note: Zofran IVP and IV Fluids given. Dr. Robins evaluated the patient at bedside. Dr. Robins requests to give patient Dilaudid and requests to repeat CT scan and labwork. Bloodwork, urinalysis, CT A/P ordered. Dilaudid IVP given. Disposition - Disposition Disposition: HOSPITALIZED Disposition Time: 15:58 Condition: FAIR - Clinical Impression Clinical Impression: Small bowel obstruction - PA / LEAD SLOT TECHNICIAN / Resident Statement MD/DO has reviewed & agrees with the documentation as recorded. - Scribe Statement The provider has reviewed the documentation as recorded by the Scribe (Rica Blackwell) All medical record entries made by the Scribe were at my direction and personally dictated by me. I have reviewed the chart and agree that the record accurately reflects my personal performance of the history, physical exam, medical decision making, and the department course for this patient. I have also personally directed, reviewed, and agree with the discharge instructions and disposition. Decision To Admit - Pt Status Changed To: Hospital Disposition Of: Observation - . Bed Request Type: Regular Admitting Physician: Landon Robins Patient Diagnosis: Small bowel obstruction
[2018-07-09] MEDS ORDERED: Sodium Chloride 0.9% 1,000 ML IV STA (11:19)
[2018-07-09] MEDS ORDERED: Sodium Chloride 0.9% 1,000 ML ONE (11:25)
[2018-07-09] MEDS ORDERED: Iohexol 240 (50 ml) PO STA (11:26)
[2018-07-09 11:39] LABS: BASO % 0.4 % (0.0-2.0); EOS # 0.1 K/uL (0.0-0.7); EOS % 0.5 % (0.0-4.0); HEMOGLOBIN 12.7 g/dL (11.0-16.0); LYMPH # 2.1 K/uL (1.0-4.3); LYMPH % 21.9 % (20.0-40.0); MEAN CORPUSCULAR HEMOGLOBIN 30.8 pg (27.0-31.0); MEAN CORPUSCULAR HGB CONC 34.4 g/dL (33.0-37.0); MEAN PLATELET VOLUME 8.5 fL (7.2-11.7); MONO # 0.6 K/uL (0.0-0.8); MONO % 6.4 % (0.0-10.0); NEUT # 6.6 K/uL (1.8-7.0); NEUT % 70.8 % (50.0-75.0); NRBC % 0.1 % (0.0-2.0); RBC 4.11 Mil/uL (3.80-5.20); RED CELL DISTRIBUTION WIDTH 17.7 % (11.5-14.5); WHITE BLOOD COUNT 9.4 K/uL (4.8-10.8)
[2018-07-09 11:45] LABS: MEAN CELL VOLUME 89.7 fL (81.0-99.0)
[2018-07-09 11:49] LABS: INR 2.1; PROTHROMBIN TIME 23.1 SECONDS (9.7-12.2)
[2018-07-09] MEDS ORDERED: Iohexol 240 (50 ml) ONE (12:47)
[2018-07-09 13:07] LABS: ALB/GLOB RATIO 1.3 (1.0-2.1); ALBUMIN 4.2 g/dL (3.5-5.0); ALT/SGPT 34 U/L (9-52); AST/SGOT 26 U/L (14-36); BLOOD UREA NITROGEN 21 mg/dL (7-17); CALCIUM 8.2 mg/dl (8.6-10.4); GFR NON-AFRICAN AMERICAN > 60; LIPASE 46 U/L (23-300)
[2018-07-09] MEDS ORDERED: HYDROmorphone 1 mg/ml ISec IVP STA (13:22)
[2018-07-09] MEDS ORDERED: Iodixanol 320 MG/ML 100 ML BOTTLE IV ONE (14:13)
--- NOTE | 2018-07-09 15:09 | CT ---
Date of service: 07/09/2018 PROCEDURE: CT Abdomen and Pelvis with contrast HISTORY: severe abdominal pain, vomiting COMPARISON: CT scan of the abdomen pelvis dated 07/02/2018 TECHNIQUE: Contrast dose: 100 mL Visipaque 320 Radiation dose: Total exam DLP = 261.06 mGy-cm. This CT exam was performed using one or more of the following dose reduction techniques: Automated exposure control, adjustment of the mA and/or kV according to patient size, and/or use of iterative reconstruction technique. FINDINGS: LOWER THORAX: Unremarkable. LIVER: 1.6 cm hepatic dome hemangioma redemonstrated. No gross lesion or ductal dilatation. GALLBLADDER AND BILE DUCTS: Unremarkable. PANCREAS: Unremarkable. No gross lesion or ductal dilatation. SPLEEN: Unremarkable. ADRENALS: Unremarkable. No mass. KIDNEYS AND URETERS: Unremarkable. No hydronephrosis. No solid mass. VASCULATURE: Unremarkable. No aortic aneurysm. No aortic atherosclerotic calcification or mural plaque present. BOWEL: Prior subtotal colectomy within ileocolic anastomosis in the left lower quadrant. Severe closed loop small-bowel obstruction with severe dilatation, measuring up to 5.2 cm, with origin and transition in the mid abdomen just to the left of the SMA (series 3, images 85-91). Foci of air in the periphery of dilated small-bowel loops for which pneumatosis intestinalis cannot be excluded. Small bowel is collapsed distal to the transition point. PERITONEUM: Unremarkable. Small amount of free fluid. No free air. LYMPH NODES: Unremarkable. No enlarged lymph nodes. BLADDER: Unremarkable. REPRODUCTIVE: Unremarkable. BONES: No acute fracture. OTHER FINDINGS: None. IMPRESSION: Severe closed loop small-bowel obstruction with origin and transition in the mid abdomen just to the left of the SMA as above described. Pneumatosis intestinalis cannot be excluded. Small amount of free fluid in the abdomen. Emergent surgical consultation is advised. Findings conveyed to LOY Ndiaye by Dr. Yoon at 2:58 p.m. on 07/09/2018.
[2018-07-09] MEDS ORDERED: Lidocaine 2% Jelly (Uro-Jet) TOP ONE (15:34)
[2018-07-09] MEDS ORDERED: Lidocaine 2% Jelly (Uro-Jet) ONE (15:38)
[2018-07-09] MEDS ORDERED: HYDROmorphone 0.5 mg/0.5 ml ISec IVP PRN (16:06)
[2018-07-09] MEDS ORDERED: Morphine 4 MG/ML VIAL IVP PRN (16:06)
[2018-07-09] MEDS: Lactated Ringer's 1,000 ML IV SCH (17:39)
--- NOTE | 2018-07-09 19:59 | CP.PCM.HP ---
<HopperMarcella - Last Filed: 07/09/18 19:53> History of Present Illness - History of Present Illness History of Present Illness: H&P for Dr. Robins CC: SBO Pt is a 33F with PSH significant for subtotal colectomy on 06/11/18 for chronic constipation. Patient had an extended recovery in the hospital d/t diet intolerance and partial SBO, as well as a portal vein thrombus discovered while admitted. Patient comes to ER today for nausea, vomiting, and abdominal pain that began yesterday. Patient states that pain is in the epigastrium, does not radiate, and is alleviated a little when she vomits. patient states that she vomited 7 times yesterday and that it was at first just food and then became bilious. Patient denies any hematemesis, is having liquid, non-bloody BM's and passing flatus, denies fevers or chills, dysuria, hematuria, chest pain, SOB, but has not been able to eat much since her discharge. PMH; hypothyroidism, esophageal achalasia, portal vein DVT, chronic constipation PSH: subtotal colectomy with ileal rectal anastamosis 06/11, sigmoidectomy in the past, esophageal dilation ALL: NKDA Social: denies all substances Present on Admission - Present on Admission Any Indicators Present on Admission: Yes History of DVT/PE: Yes Review of Systems - Review of Systems All systems: reviewed and no additional remarkable complaints except (as per HPI) Past Patient History - Infectious Disease Hx of Infectious Diseases: None - Past Medical History & Family History Past Medical History?: Yes Past Family History: Reviewed and not pertinent - Past Social History Smoking Status: Never Smoked Alcohol: None Drugs: Denies Home Situation {Lives}: With Family - NEUROLOGICAL Hx Migraine: Yes - ENDOCRINE/METABOLIC Hx Hyperthyroidism: Yes Hx Hypothyroidism: Yes - HEMATOLOGICAL/ONCOLOGICAL Hx Blood Transfusions: Yes Other/Comment: R and L Portal vein thrombosis - MUSCULOSKELETAL/RHEUMATOLOGICAL Hx Musculoskeletal Disorders: Yes Hx Back Pain: Yes - GASTROINTESTINAL Hx Gastrointestinal Disorders: Yes Hx Bowel Surgery: Yes (PARTIAL COLECTOMY) Hx Constipation: Yes Other/Comment: CHAGAS SYNDROME, ACHALASIA - PSYCHIATRIC Hx Post Traumatic Stress Disorder: Yes Hx Substance Use: No - SURGICAL HISTORY Hx Surgeries: Yes Other/Comment: subtotal colectomy with ileorectal anastamosis 06/2018, sigmoidectomy prior - ANESTHESIA Hx Anesthesia: Yes Hx Anesthesia Reactions: No Hx Malignant Hyperthermia: No Meds Allergies/Adverse Reactions: Allergies Allergy/AdvReac Type Severity Reaction Status Date / Time No Known Allergies Allergy Verified 07/09/18 10:55 Physical Exam - Constitutional Appears: Non-toxic, No Acute Distress, Chronically Ill - Head Exam Head Exam: ATRAUMATIC, NORMOCEPHALIC - Eye Exam Eye Exam: Normal appearance. absent: Conjunctival injection, Scleral icterus - ENT Exam ENT Exam: Mucous Membranes Dry, Normal Oropharynx - Respiratory Exam Respiratory Exam: NORMAL BREATHING PATTERN. absent: Accessory Muscle Use, Respiratory Distress - Cardiovascular Exam Cardiovascular Exam: Tachycardia, REGULAR RHYTHM - GI/Abdominal Exam GI & Abdominal Exam: Soft, Tenderness (epigastric moderate tenderness). absent: Distended, Firm, Rebound, Rigid - Extremities Exam Extremities exam: Positive for: pedal pulses present. Negative for: calf tenderness, pedal edema - Neurological Exam Neurological exam: Alert, Oriented x3 - Psychiatric Exam Psychiatric exam: Normal Affect, Normal Mood - Skin Skin Exam: Dry, Intact, Normal Color, Warm Results - Vital Signs Recent Vital Signs: Last Vital Signs Temp 98.1 F 07/09/18 17:24 Pulse 87 07/09/18 16:50 Resp 96 H 07/09/18 17:24 BP 142/90 07/09/18 17:24 Pulse Ox 100 07/09/18 17:31 - Labs Result Diagrams: 07/09/18 11:31 07/09/18 12:41 Labs: Laboratory Results - last 24 hr 07/09/18 07/09/18 07/09/18 11:31 11:31 11:37 WBC 9.4 RBC 4.11 Hgb 12.7 Hct 36.9 MCV 89.7 D MCH 30.8 MCHC 34.4 RDW 17.7 H Plt Count 495 H MPV 8.5 Neut % (Auto) 70.8 Lymph % (Auto) 21.9 Kendall % (Auto) 6.4 Eos % (Auto) 0.5 Baso % (Auto) 0.4 Neut # (Auto) 6.6 Lymph # (Auto) 2.1 Kendall # (Auto) 0.6 Eos # (Auto) 0.1 Baso # (Auto) 0.0 PT 23.1 H INR 2.1 APTT 39 H Sodium Potassium Chloride Carbon Dioxide Anion Gap BUN Creatinine Est GFR ( Amer) Est GFR (Non-Af Amer) Random Glucose Lactic Acid 4.3 H* Calcium Total Bilirubin AST ALT Alkaline Phosphatase Total Protein Albumin Globulin Albumin/Globulin Ratio Lipase Beta HCG, Quant 07/09/18 12:41 WBC RBC Hgb Hct MCV MCH MCHC RDW Plt Count MPV Neut % (Auto) Lymph % (Auto) Kendall % (Auto) Eos % (Auto) Baso % (Auto) Neut # (Auto) Lymph # (Auto) Kendall # (Auto) Eos # (Auto) Baso # (Auto) PT INR APTT Sodium 136 Potassium 3.6 Chloride 96 L Carbon Dioxide 20 L Anion Gap 24 H BUN 21 H Creatinine 0.7 Est GFR ( Amer) > 60 Est GFR (Non-Af Amer) > 60 Random Glucose 135 H Lactic Acid Calcium 8.2 L Total Bilirubin 0.6 AST 26 ALT 34 Alkaline Phosphatase 109 Total Protein 7.5 Albumin 4.2 Globulin 3.3 Albumin/Globulin Ratio 1.3 Lipase 46 Beta HCG, Quant < 2.39 Assessment & Plan - Assessment and Plan (Free Text) Assessment: 33F with SBO 28 days S/P subtotal colectomy Plan: Admit to med/surgery floor NGT inserted at bedside with 1L of thick bilious fluid output--continue to low continuous wall suction NPO except meds IVF IV antibiotics PRN pain medication Scheduled reglan encourage ambulation, incentive spirometer use, PT monitor intake and output strictly Continue home medications for hypothryoidism, protal vein thrombosis trend CBC/BMP/mag/phos Discussed with Dr. Robins, who agrees with above Marcella Hopper PGY2 <Landon Robins B - Last Filed: 07/15/18 16:51> Results - Vital Signs Recent Vital Signs: Last Vital Signs Temp 98.6 F 07/15/18 15:00 Pulse 120 H 07/15/18 15:00 Resp 20 07/15/18 15:00 BP 95/60 L 07/15/18 15:00 Pulse Ox 98 07/15/18 15:00 - Labs Result Diagrams: 07/15/18 07:28 07/15/18 07:28 Labs: Laboratory Results - last 24 hr 11/03/18 11/04/18 11/04/18 21:16 06:31 07:28 WBC 6.2 D RBC 3.45 L Hgb 10.6 L Hct 31.1 L MCV 90.3 MCH 30.7 MCHC 34.0 RDW 17.2 H Plt Count 413 H MPV 7.7 Neut % (Auto) 65.0 Lymph % (Auto) 24.5 Kendall % (Auto) 8.2 Eos % (Auto) 1.6 Baso % (Auto) 0.7 Neut # (Auto) 4.1 Lymph # (Auto) 1.5 Kendall # (Auto) 0.5 Eos # (Auto) 0.1 Baso # (Auto) 0.0 PT INR Sodium Potassium Chloride Carbon Dioxide Anion Gap BUN Creatinine Est GFR ( Amer) Est GFR (Non-Af Amer) POC Glucose (mg/dL) 87 88 Random Glucose Calcium Phosphorus Magnesium Total Bilirubin AST ALT Alkaline Phosphatase Total Protein Albumin Globulin Albumin/Globulin Ratio 07/15/18 07/15/18 07/15/18 07:28 07:28 11:04 WBC RBC Hgb Hct MCV MCH MCHC RDW Plt Count MPV Neut % (Auto) Lymph % (Auto) Kendall % (Auto) Eos % (Auto) Baso % (Auto) Neut # (Auto) Lymph # (Auto) Kendall # (Auto) Eos # (Auto) Baso # (Auto) PT 14.8 H D INR 1.4 D Sodium 132 Potassium 4.4 Chloride 100 Carbon Dioxide 21 L Anion Gap 15 BUN 12 Creatinine 0.4 L Est GFR ( Amer) > 60 Est GFR (Non-Af Amer) > 60 POC Glucose (mg/dL) 78 Random Glucose 97 Calcium 8.5 L Phosphorus 3.7 Magnesium 1.7 Total Bilirubin 0.3 AST 15 ALT 19 Alkaline Phosphatase 45 Total Protein 6.3 Albumin 3.2 L Globulin 3.0 Albumin/Globulin Ratio 1.1 07/15/18 16:07 WBC RBC Hgb Hct MCV MCH MCHC RDW Plt Count MPV Neut % (Auto) Lymph % (Auto) Kendall % (Auto) Eos % (Auto) Baso % (Auto) Neut # (Auto) Lymph # (Auto) Kendall # (Auto) Eos # (Auto) Baso # (Auto) PT INR Sodium Potassium Chloride Carbon Dioxide Anion Gap BUN Creatinine Est GFR ( Amer) Est GFR (Non-Af Amer) POC Glucose (mg/dL) 90 Random Glucose Calcium Phosphorus Magnesium Total Bilirubin AST ALT Alkaline Phosphatase Total Protein Albumin Globulin Albumin/Globulin Ratio Attending/Attestation - Attestation I have personally seen and examined this patient.: Yes I have fully participated in the care of the patient.: Yes I have reviewed all pertinent clinical information: Yes Notes (Text): Pt was seen and examined at bedside Agree with above note and assessment Pt with severe abdominal pain and distention Not passing Gas and BM Abdomen: Soft, tender in upper abdomen, mild distention Labs and radiology reviewed Ass: PSBO Plan: NPO, IVF, IV antibiotics NG tube if vomits C.w current mx Plan d.w pt in detail. Risk and Benefit explained in detail
[2018-07-09] MEDS ORDERED: Benzocaine/Menthol (Cepacol) Lozenge MT PRN (20:05)
[2018-07-09] MEDS: metroNIDAZOLE IV 500 mg/100 ml 500 MG/100 ML BAG IVPB SCH (20:53)
[2018-07-09] MEDS: Piperacill/Tazo 3.375gm in Dex 3.375 GM/50 ML BAG IVPB SCH (21:25)
[2018-07-10] MEDS: Piperacill/Tazo 3.375gm in Dex 3.375 GM/50 ML BAG IVPB SCH ×4 (02:53→21:04)
[2018-07-10] MEDS: metroNIDAZOLE IV 500 mg/100 ml 500 MG/100 ML BAG IVPB SCH ×3 (03:48→19:28)
[2018-07-10] MEDS ORDERED: Morphine 4 MG/ML VIAL IVP PRN (04:00)
[2018-07-10] MEDS: Lactated Ringer's 1,000 ML IV SCH ×5 (05:31→21:22)
[2018-07-10] MEDS: Levothyroxine 175 MCG TAB PO SCH (05:51)
[2018-07-10 07:27] LABS: BASO % 0.4 % (0.0-2.0); EOS # 0.1 K/uL (0.0-0.7); EOS % 2.4 % (0.0-4.0); HEMOGLOBIN 11.5 g/dL (11.0-16.0); LYMPH % 23.4 % (20.0-40.0); MEAN CELL VOLUME 90.3 fL (81.0-99.0); MEAN CORPUSCULAR HEMOGLOBIN 31.1 pg (27.0-31.0); MEAN CORPUSCULAR HGB CONC 34.5 g/dL (33.0-37.0); MEAN PLATELET VOLUME 7.7 fL (7.2-11.7); MONO # 0.4 K/uL (0.0-0.8); MONO % 10.2 % (0.0-10.0); NEUT # 2.8 K/uL (1.8-7.0); NEUT % 63.6 % (50.0-75.0); NRBC % 0.1 % (0.0-2.0); RBC 3.68 Mil/uL (3.80-5.20); RED CELL DISTRIBUTION WIDTH 18.4 % (11.5-14.5)
[2018-07-10 07:35] LABS: WHITE BLOOD COUNT 4.4 K/uL (4.8-10.8)
--- NOTE | 2018-07-10 07:53 | CP.PCM.PN ---
<ErinChaitanya - Last Filed: 07/10/18 07:50> Subjective - Date & Time of Evaluation Date of Evaluation: 07/10/18 Time of Evaluation: 07:50 - Subjective Subjective: General Surgery: Dr Robins Pt S&E. KAMRAN. Had NGT placed yesterday. 700 out overnight, billious. Reports improvement in pain since placement. Passing flatus. Having liquid BMs. Objective - Vital Signs/Intake and Output Vital Signs (last 24 hours): Temp Pulse Resp BP Pulse Ox 98.6 F 101 H 18 122/88 97 07/10/18 04:30 07/10/18 04:30 07/10/18 04:30 07/10/18 04:30 07/10/18 04:30 Intake and Output: 07/10/18 07/10/18 06:59 18:59 Intake Total 800 Output Total 400 Balance 400 - Medications Medications: Current Medications Benzocaine/Menthol (Cepacol Sore Throat) 1 nyasia MT Q1H PRN PRN Reason: Sore Throat Lactated Ringer's (Lactated Ringer's) 1,000 mls @ 100 mls/hr IV .Q10H [facility] Last Admin: 07/10/18 06:47 Dose: 100 mls/hr Metronidazole (Flagyl) 500 mg in 100 mls @ 100 mls/hr IVPB Q8H [facility]; Protocol Last Admin: 07/10/18 03:48 Dose: 100 mls/hr Piperacillin Sod/Tazobactam Sod (Zosyn 3.375 Gm Iv Premix) 3.375 gm in 50 mls @ 100 mls/hr IVPB Q6H [facility]; Protocol Last Admin: 07/10/18 02:53 Dose: 100 mls/hr Ketorolac Tromethamine (Toradol) 30 mg IV Q6 [facility] Stop: 07/14/18 18:00 Last Admin: 07/10/18 05:52 Dose: 30 mg Levothyroxine Sodium (Synthroid) 175 mcg PO DAILY@0630 [facility] Last Admin: 07/10/18 05:51 Dose: 175 mcg Metoclopramide HCl (Reglan) 10 mg IVP ACHS [facility] Last Admin: 07/10/18 06:47 Dose: 10 mg Morphine Sulfate (Morphine) 2 mg IVP Q4 PRN PRN Reason: Pain, moderate (4-7) Morphine Sulfate (Morphine) 4 mg IVP Q4H PRN PRN Reason: Pain, severe (8-10) Pantoprazole Sodium (Protonix Inj) 40 mg IVP DAILY [facility] Warfarin Sodium (Coumadin) 3 mg PO 1800 [facility] Last Admin: 07/09/18 17:37 Dose: 3 mg Zolpidem Tartrate (Ambien) 5 mg PO HS PRN PRN Reason: Insomnia - Labs Labs: 07/10/18 07:16 07/09/18 12:41 PT 23.1 SECONDS (9.7-12.2) H 07/09/18 11:31 INR 2.1 07/09/18 11:31 APTT 39 SECONDS (21-34) H 07/09/18 11:31 - Constitutional Appears: Non-toxic, No Acute Distress - ENT Exam ENT Exam: Mucous Membranes Dry - Respiratory Exam Respiratory Exam: absent: Accessory Muscle Use, Respiratory Distress - Cardiovascular Exam Cardiovascular Exam: REGULAR RHYTHM. absent: Tachycardia - GI/Abdominal Exam GI & Abdominal Exam: Soft, Tenderness (minimal suprapubic). absent: Distended - Rectal Exam Rectal Exam: Deferred - Extremities Exam Extremities Exam: absent: Pedal Edema - Neurological Exam Neurological Exam: Alert, Awake Assessment and Plan - Assessment and Plan (Free Text) Assessment: 33F s/p sub-total colectomy returns to hospital for ileus Plan: avoid narcotics continue NGT OOB and ambulate will d/w Dr Shimon Khan, PGY4 <Landon Robins B - Last Filed: 07/15/18 16:53> Objective - Vital Signs/Intake and Output Vital Signs (last 24 hours): Temp Pulse Resp BP Pulse Ox 98.6 F 120 H 20 95/60 L 98 07/15/18 15:00 07/15/18 15:00 07/15/18 15:00 07/15/18 15:00 07/15/18 15:00 Intake and Output: 07/15/18 07/15/18 06:59 18:59 Intake Total 1765 Output Total 200 Balance 1565 - Medications Medications: Current Medications Benzocaine/Menthol (Cepacol Sore Throat) 1 nyasia MT Q1H PRN PRN Reason: Sore Throat Last Admin: 07/14/18 18:01 Dose: 1 nyasia Enoxaparin Sodium (Lovenox) 30 mg SC Q12 [facility] Last Admin: 07/15/18 12:30 Dose: 30 mg Metronidazole (Flagyl) 500 mg in 100 mls @ 100 mls/hr IVPB Q8H [facility]; Protocol Last Admin: 07/15/18 11:30 Dose: 100 mls/hr Piperacillin Sod/Tazobactam Sod (Zosyn 3.375 Gm Iv Premix) 3.375 gm in 50 mls @ 100 mls/hr IVPB Q6H [facility]; Protocol Last Admin: 07/15/18 14:09 Dose: 100 mls/hr Amino Acids (Clinimix 4.25/5 % "E" (1000 Ml)) 1,000 mls @ 83 mls/hr IV .Q12H3M ONE Stop: 07/15/18 18:12 Last Admin: 07/15/18 06:06 Dose: 83 mls/hr Multivitamins/Vitamin C 10 ml/Chromium/Copper/Manganese/Zinc 1 ml/ Amino Acids 1,011 mls @ 83 mls/hr IV .[id number] [facility] Stop: 07/16/18 06:10 Amino Acids (Clinimix 4.25/5 % "E" (1000 Ml)) 1,000 mls @ 83 mls/hr IV .Q12H3M [facility] Stop: 07/16/18 18:12 Ketorolac Tromethamine (Toradol) 15 mg IVP Q6 [facility] Last Admin: 07/15/18 12:23 Dose: 15 mg Levothyroxine Sodium (Synthroid) 175 mcg PO DAILY@0630 [facility] Last Admin: 07/15/18 06:18 Dose: Not Given Metoclopramide HCl (Reglan) 10 mg IVP ACHS [facility] Last Admin: 07/15/18 12:25 Dose: 10 mg Pantoprazole Sodium (Protonix Inj) 40 mg IVP DAILY [facility] Last Admin: 07/15/18 10:50 Dose: 40 mg Sodium Phosphate (Fleet Enema) 135 ml CO BID [facility] Stop: 07/15/18 23:59 Last Admin: 07/15/18 11:00 Dose: Not Given Tramadol HCl (Ultram) 25 mg PO TID PRN PRN Reason: Pain, moderate (4-7) Zolpidem Tartrate (Ambien) 5 mg PO HS PRN PRN Reason: Insomnia - Labs Labs: 07/15/18 07:28 07/15/18 07:28 PT 14.8 SECONDS (9.7-12.2) H D 07/15/18 07:28 INR 1.4 D 07/15/18 07:28 APTT 39 SECONDS (21-34) H 07/09/18 11:31 Attending/Attestation - Attestation I have personally seen and examined this patient.: Yes I have fully participated in the care of the patient.: Yes I have reviewed all pertinent clinical information, including history, physical exam and plan: Yes Notes (Text): Pt was seen and examined at bedside Agree with above note and assessment Pt with PSBO Passing Gas today, No BMs NG to LIS, NPO Start PPN DVT prophylaxis OOB to chair Plan d.w pt in detail.
[2018-07-10 08:35] LABS: ALB/GLOB RATIO 1.2 (1.0-2.1); ALBUMIN 3.8 g/dL (3.5-5.0); ALT/SGPT 32 U/L (9-52); AST/SGOT 33 U/L (14-36); BLOOD UREA NITROGEN 30 mg/dL (7-17); GFR NON-AFRICAN AMERICAN 52
[2018-07-11] MEDS: metroNIDAZOLE IV 500 mg/100 ml 500 MG/100 ML BAG IVPB SCH ×3 (03:27→20:15)
[2018-07-11] MEDS: Piperacill/Tazo 3.375gm in Dex 3.375 GM/50 ML BAG IVPB SCH ×4 (03:27→21:14)
[2018-07-11] MEDS: Levothyroxine 175 MCG TAB PO SCH (05:39)
[2018-07-11] MEDS ORDERED: Iohexol 240 (50 ml) PO ONE (06:00)
[2018-07-11] MEDS ORDERED: Dextrose 50% SYRINGE Inj (50 ml) IV STA ×4 (06:37→20:58)
[2018-07-11] MEDS ORDERED: Dextrose 50% VIAL Inj (50 ml) IV ONE (06:39)
[2018-07-11 08:14] LABS: BASO % 0.6 % (0.0-2.0); EOS # 0.2 K/uL (0.0-0.7); EOS % 4.8 % (0.0-4.0); HEMOGLOBIN 9.6 g/dL (11.0-16.0); LYMPH # 1.1 K/uL (1.0-4.3); LYMPH % 24.7 % (20.0-40.0); MEAN CELL VOLUME 91.2 fL (81.0-99.0); MEAN CORPUSCULAR HEMOGLOBIN 31.2 pg (27.0-31.0); MEAN CORPUSCULAR HGB CONC 34.2 g/dL (33.0-37.0); MEAN PLATELET VOLUME 8.1 fL (7.2-11.7); MONO # 0.4 K/uL (0.0-0.8); NEUT # 2.7 K/uL (1.8-7.0); NEUT % 61.9 % (50.0-75.0); NRBC % 0.1 % (0.0-2.0); RBC 3.08 Mil/uL (3.80-5.20); RED CELL DISTRIBUTION WIDTH 18.2 % (11.5-14.5); WHITE BLOOD COUNT 4.4 K/uL (4.8-10.8)
[2018-07-11 08:30] LABS: ALB/GLOB RATIO 1.2 (1.0-2.1); ALBUMIN 3.4 g/dL (3.5-5.0); ALT/SGPT 25 U/L (9-52); AST/SGOT 28 U/L (14-36); BLOOD UREA NITROGEN 23 mg/dL (7-17); CALCIUM 8.5 mg/dl (8.6-10.4); GFR NON-AFRICAN AMERICAN > 60
[2018-07-11] MEDS: Lactated Ringer's 1,000 ML IV SCH ×2 (08:48→09:49)
[2018-07-11] MEDS ORDERED: Potassium Chloride 40 MEQ in Lactated Ringer's 1,000 ML IV SCH (10:07)
[2018-07-11] MEDS ORDERED: Potassium Chloride 40 MEQ in Dextrose 5%/0.45% NS 1,000 ML IV SCH (10:10)
[2018-07-11] MEDS ORDERED: Potassium Phosphate 15 MMOLE in Sodium Chloride 0.9% 250 ML IV ONE (11:00)
--- NOTE | 2018-07-11 13:33 | RAD ---
Date of service: 07/11/2018 HISTORY: r/o sbo COMPARISON: CT abdomen and pelvis from 07/09/2018 FINDINGS: BOWEL: There are large differential air-fluid levels in the upper abdomen and gaseous distension of the small bowel. The colon is decompressed. The nasogastric tube terminates in the stomach. There are running sutures in the left lower quadrant. BONES: Normal. OTHER FINDINGS: None. IMPRESSION: Persistent severe gaseous distension of the small bowel with differential air-fluid levels consistent with acute obstruction. No free intraperitoneal air. The nasogastric tube terminates in the stomach.
[2018-07-11] MEDS ORDERED: Glucagon Recombinant 1 mg Inj IM STA (16:21)
[2018-07-11 16:54] LABS: SQUAMOUS EPITHIAL 12 /hpf (0-5); URINE BACTERIA FEW (<OCC); URINE BILIRUBIN NEGATIVE (NEGATIVE); URINE BLOOD NEGATIVE (NEGATIVE); URINE CLARITY Hazy (Clear); URINE GLUCOSE (UA) NORMAL (Normal); URINE LEUKOCYTE ESTERASE 2+ Leu/uL (Negative); URINE PROTEIN 1+ mg/dL (NEGATIVE); URINE UROBILINOGEN NORMAL mg/dL (0.2-1.0)
[2018-07-11 17:02] LABS: URINE COLOR YELLOW (YELLOW)
--- NOTE | 2018-07-11 18:18 | CP.PCM.PN ---
<Esperanza Muñoz - Last Filed: 07/11/18 18:25> Subjective - Date & Time of Evaluation Date of Evaluation: 07/11/18 Time of Evaluation: 12:15 - Subjective Subjective: Patient examined at bedside. No acute events overnight. Patient reports she is upset she feels as though she is not informed of her condition and treatment plan; discussion provided some relief. Patient denies chest pain, SOB, nausea, vomiting. NGT in place putting out dark fluid Objective - Vital Signs/Intake and Output Vital Signs (last 24 hours): Temp Pulse Resp BP Pulse Ox 98.5 F 87 20 107/71 97 07/11/18 15:28 07/11/18 15:28 07/11/18 15:28 07/11/18 15:28 07/11/18 15:41 Intake and Output: 07/11/18 07/11/18 06:59 18:59 Intake Total 800 2389 Output Total 200 950 Balance 600 1439 - Medications Medications: Current Medications Benzocaine/Menthol (Cepacol Sore Throat) 1 nyasia MT Q1H PRN PRN Reason: Sore Throat Metronidazole (Flagyl) 500 mg in 100 mls @ 100 mls/hr IVPB Q8H [facility]; Protocol Last Admin: 07/11/18 12:21 Dose: 100 mls/hr Piperacillin Sod/Tazobactam Sod (Zosyn 3.375 Gm Iv Premix) 3.375 gm in 50 mls @ 100 mls/hr IVPB Q6H [facility]; Protocol Last Admin: 07/11/18 15:24 Dose: Not Given Potassium Chloride 40 meq/ (Dextrose/Sodium Chloride) 1,020 mls @ 130 mls/hr IV .Q7H51M [facility] Levothyroxine Sodium (Synthroid) 175 mcg PO DAILY@0630 [facility] Last Admin: 07/11/18 05:39 Dose: 175 mcg Metoclopramide HCl (Reglan) 10 mg IVP ACHS [facility] Last Admin: 07/11/18 17:19 Dose: Not Given Morphine Sulfate (Morphine) 2 mg IVP Q4 PRN PRN Reason: Pain, moderate (4-7) Last Admin: 07/11/18 05:29 Dose: 2 mg Morphine Sulfate (Morphine) 4 mg IVP Q4H PRN PRN Reason: Pain, severe (8-10) Last Admin: 07/10/18 14:53 Dose: 4 mg Pantoprazole Sodium (Protonix Inj) 40 mg IVP DAILY [facility] Last Admin: 07/11/18 09:48 Dose: 40 mg Warfarin Sodium (Coumadin) 3 mg PO 1800 [facility] Zolpidem Tartrate (Ambien) 5 mg PO HS PRN PRN Reason: Insomnia - Labs Labs: 07/11/18 08:06 07/11/18 08:06 PT 23.1 SECONDS (9.7-12.2) H 07/09/18 11:31 INR 2.1 07/09/18 11:31 APTT 39 SECONDS (21-34) H 07/09/18 11:31 - Constitutional Appears: Non-toxic, No Acute Distress - Head Exam Head Exam: ATRAUMATIC, NORMAL INSPECTION, NORMOCEPHALIC - Eye Exam Eye Exam: EOMI, Normal appearance - ENT Exam ENT Exam: Mucous Membranes Moist, Normal Exam - Neck Exam Neck Exam: Normal Inspection - Respiratory Exam Respiratory Exam: Clear to Ausculation Bilateral, NORMAL BREATHING PATTERN - Cardiovascular Exam Cardiovascular Exam: REGULAR RHYTHM - GI/Abdominal Exam GI & Abdominal Exam: Soft, Tenderness (epigastric). absent: Distended - Neurological Exam Neurological Exam: Alert, Awake, Oriented x3 - Psychiatric Exam Psychiatric exam: Normal Affect, Normal Mood - Skin Skin Exam: Dry, Intact, Normal Color, Warm Assessment and Plan - Assessment and Plan (Free Text) Assessment: 33 year old female admitted with SBO Plan: -NGT bowel decompression -NPO -D5 1/2NS@130 -x-ray findings consistent with closed loop SBO -coumadin for portal venous thrombosis -am INR -IV antibiotics -GI ppx Discussed with Dr. Shimon Muñoz, PGY-1 <Landon Robins - Last Filed: 07/15/18 16:54> Objective - Vital Signs/Intake and Output Vital Signs (last 24 hours): Temp Pulse Resp BP Pulse Ox 98.6 F 120 H 20 95/60 L 98 07/15/18 15:00 07/15/18 15:00 07/15/18 15:00 07/15/18 15:00 07/15/18 15:00 Intake and Output: 07/15/18 07/15/18 06:59 18:59 Intake Total 1765 Output Total 200 Balance 1565 - Medications Medications: Current Medications Benzocaine/Menthol (Cepacol Sore Throat) 1 nyasia MT Q1H PRN PRN Reason: Sore Throat Last Admin: 07/14/18 18:01 Dose: 1 nyasia Enoxaparin Sodium (Lovenox) 30 mg SC Q12 [facility] Last Admin: 07/15/18 12:30 Dose: 30 mg Metronidazole (Flagyl) 500 mg in 100 mls @ 100 mls/hr IVPB Q8H [facility]; Protocol Last Admin: 07/15/18 11:30 Dose: 100 mls/hr Piperacillin Sod/Tazobactam Sod (Zosyn 3.375 Gm Iv Premix) 3.375 gm in 50 mls @ 100 mls/hr IVPB Q6H [facility]; Protocol Last Admin: 07/15/18 14:09 Dose: 100 mls/hr Amino Acids (Clinimix 4.25/5 % "E" (1000 Ml)) 1,000 mls @ 83 mls/hr IV .Q12H3M ONE Stop: 07/15/18 18:12 Last Admin: 07/15/18 06:06 Dose: 83 mls/hr Multivitamins/Vitamin C 10 ml/Chromium/Copper/Manganese/Zinc 1 ml/ Amino Acids 1,011 mls @ 83 mls/hr IV .[id number] [facility] Stop: 07/16/18 06:10 Amino Acids (Clinimix 4.25/5 % "E" (1000 Ml)) 1,000 mls @ 83 mls/hr IV .Q12H3M [facility] Stop: 07/16/18 18:12 Ketorolac Tromethamine (Toradol) 15 mg IVP Q6 [facility] Last Admin: 07/15/18 12:23 Dose: 15 mg Levothyroxine Sodium (Synthroid) 175 mcg PO DAILY@0630 [facility] Last Admin: 07/15/18 06:18 Dose: Not Given Metoclopramide HCl (Reglan) 10 mg IVP ACHS [facility] Last Admin: 07/15/18 12:25 Dose: 10 mg Pantoprazole Sodium (Protonix Inj) 40 mg IVP DAILY [facility] Last Admin: 07/15/18 10:50 Dose: 40 mg Sodium Phosphate (Fleet Enema) 135 ml SD BID [facility] Stop: 07/15/18 23:59 Last Admin: 07/15/18 11:00 Dose: Not Given Tramadol HCl (Ultram) 25 mg PO TID PRN PRN Reason: Pain, moderate (4-7) Zolpidem Tartrate (Ambien) 5 mg PO HS PRN PRN Reason: Insomnia - Labs Labs: 07/15/18 07:28 07/15/18 07:28 PT 14.8 SECONDS (9.7-12.2) H D 07/15/18 07:28 INR 1.4 D 07/15/18 07:28 APTT 39 SECONDS (21-34) H 07/09/18 11:31 Attending/Attestation - Attestation I have personally seen and examined this patient.: Yes I have fully participated in the care of the patient.: Yes I have reviewed all pertinent clinical information, including history, physical exam and plan: Yes Notes (Text): Pt was seen and examined at bedside Agree with above note and assessment Pt with PSBO, Clinically Same Passing Gas, No BMs Xary is s/o PSBO Start PPN DVT prophylaxis OOB to chair Plan d.w pt in detail.
[2018-07-11] MEDS: Potassium Chloride 40 MEQ in Dextrose 5%/0.45% NS 1,000 ML IV SCH (19:04)
[2018-07-11 19:13] LABS: INR 5.1; PROTHROMBIN TIME 56.2 SECONDS (9.7-12.2)
[2018-07-12] MEDS: Potassium Chloride 40 MEQ in Dextrose 5%/0.45% NS 1,000 ML IV SCH ×3 (04:31→17:59)
[2018-07-12] MEDS: Piperacill/Tazo 3.375gm in Dex 3.375 GM/50 ML BAG IVPB SCH ×4 (04:31→20:26)
[2018-07-12] MEDS: metroNIDAZOLE IV 500 mg/100 ml 500 MG/100 ML BAG IVPB SCH ×3 (04:35→19:09)
[2018-07-12] MEDS: Levothyroxine 175 MCG TAB PO SCH (06:42)
[2018-07-12 08:49] LABS: BASO % 0.7 % (0.0-2.0); EOS # 0.2 K/uL (0.0-0.7); EOS % 4.9 % (0.0-4.0); HEMOGLOBIN 8.7 g/dL (11.0-16.0); LYMPH # 1.1 K/uL (1.0-4.3); LYMPH % 32.5 % (20.0-40.0); MEAN CELL VOLUME 90.7 fL (81.0-99.0); MEAN CORPUSCULAR HEMOGLOBIN 31.2 pg (27.0-31.0); MEAN CORPUSCULAR HGB CONC 34.4 g/dL (33.0-37.0); MEAN PLATELET VOLUME 7.7 fL (7.2-11.7); MONO # 0.4 K/uL (0.0-0.8); MONO % 10.2 % (0.0-10.0); NEUT # 1.8 K/uL (1.8-7.0); NEUT % 51.7 % (50.0-75.0); NRBC % 0.1 % (0.0-2.0); RBC 2.78 Mil/uL (3.80-5.20); RED CELL DISTRIBUTION WIDTH 17.7 % (11.5-14.5); WHITE BLOOD COUNT 3.5 K/uL (4.8-10.8)
[2018-07-12 09:13] LABS: ALB/GLOB RATIO 1.1 (1.0-2.1); ALT/SGPT 24 U/L (9-52); AST/SGOT 15 U/L (14-36); BLOOD UREA NITROGEN 10 mg/dL (7-17); CALCIUM 7.6 mg/dl (8.6-10.4); GFR NON-AFRICAN AMERICAN > 60
[2018-07-12 11:43] LABS: INR 4.5; PROTHROMBIN TIME 49.2 SECONDS (9.7-12.2)
--- NOTE | 2018-07-12 17:50 | CP.PCM.PN ---
<Caleb Reyes - Last Filed: 07/12/18 17:47> Subjective - Date & Time of Evaluation Date of Evaluation: 07/12/18 Time of Evaluation: 17:47 - Subjective Subjective: General Surgery Progress Note for Dr. Robins This 33F was seen and examined this AM at bedside. No acute events overnight. Passing gas no BM. Denies any new complaints. Denies chest pain or SOB. Objective - Vital Signs/Intake and Output Vital Signs (last 24 hours): Temp Pulse Resp BP Pulse Ox 98.5 F 89 20 100/63 99 07/12/18 15:38 07/12/18 15:38 07/12/18 15:38 07/12/18 15:38 07/12/18 15:38 Intake and Output: 07/12/18 07/12/18 06:59 18:59 Intake Total 1270 850 Output Total 800 250 Balance 470 600 - Medications Medications: Current Medications Benzocaine/Menthol (Cepacol Sore Throat) 1 nyasia MT Q1H PRN PRN Reason: Sore Throat Metronidazole (Flagyl) 500 mg in 100 mls @ 100 mls/hr IVPB Q8H [facility]; Protocol Last Admin: 07/12/18 11:05 Dose: 100 mls/hr Piperacillin Sod/Tazobactam Sod (Zosyn 3.375 Gm Iv Premix) 3.375 gm in 50 mls @ 100 mls/hr IVPB Q6H [facility]; Protocol Last Admin: 07/12/18 14:35 Dose: 100 mls/hr Potassium Chloride 40 meq/ (Dextrose/Sodium Chloride) 1,020 mls @ 130 mls/hr IV .[id number] [facility] Last Admin: 07/12/18 09:54 Dose: 130 mls/hr Potassium Chloride 40 meq/Multivitamins/Vitamin C 10 ml/Chromium/Copper/Manganese/Zinc 1 ml/ Amino Acids 1,031 mls @ 83 mls/hr IV .[id number] ONE Stop: 07/13/18 06:25 Last Admin: 07/12/18 17:39 Dose: 83 mls/hr Potassium Chloride 40 meq/ (Amino Acids) 1,020 mls @ 83 mls/hr IV .[id number] ONE Stop: 07/13/18 18:47 Fat Emulsion Intravenous (Intralipid 20%) 250 mls @ 42 mls/hr IV QOD@1800 [facility] Stop: 07/19/18 18:01 Levothyroxine Sodium (Synthroid) 175 mcg PO DAILY@0630 [facility] Last Admin: 07/12/18 06:42 Dose: 175 mcg Metoclopramide HCl (Reglan) 10 mg IVP ACHS [facility] Last Admin: 07/12/18 16:41 Dose: 10 mg Morphine Sulfate (Morphine) 2 mg IVP Q4 PRN PRN Reason: Pain, moderate (4-7) Last Admin: 07/12/18 17:38 Dose: 2 mg Morphine Sulfate (Morphine) 4 mg IVP Q4H PRN PRN Reason: Pain, severe (8-10) Last Admin: 07/10/18 14:53 Dose: 4 mg Pantoprazole Sodium (Protonix Inj) 40 mg IVP DAILY [facility] Last Admin: 07/12/18 09:56 Dose: 40 mg Zolpidem Tartrate (Ambien) 5 mg PO HS PRN PRN Reason: Insomnia - Labs Labs: 07/12/18 08:42 07/12/18 08:42 PT 49.2 SECONDS (9.7-12.2) H D 07/12/18 11:10 INR 4.5 H* 07/12/18 11:10 APTT 39 SECONDS (21-34) H 07/09/18 11:31 - Constitutional Appears: Non-toxic, No Acute Distress - Head Exam Head Exam: ATRAUMATIC, NORMAL INSPECTION, NORMOCEPHALIC - Eye Exam Eye Exam: EOMI, Normal appearance - ENT Exam ENT Exam: Mucous Membranes Moist, Normal Exam - Neck Exam Neck Exam: Normal Inspection - Respiratory Exam Respiratory Exam: Clear to Ausculation Bilateral, NORMAL BREATHING PATTERN - Cardiovascular Exam Cardiovascular Exam: REGULAR RHYTHM - GI/Abdominal Exam GI & Abdominal Exam: Soft, Tenderness (epigastric). absent: Distended - Neurological Exam Neurological Exam: Alert, Awake, Oriented x3 - Psychiatric Exam Psychiatric exam: Normal Affect, Normal Mood - Skin Skin Exam: Dry, Intact, Normal Color, Warm Assessment and Plan - Assessment and Plan (Free Text) Assessment: 33 year old female admitted with SBO Plan: -NGT bowel decompression -NPO -Change Coumadin to lovenox. -IV antibiotics -GI ppx D/W Dr. Shimon Reyes PGY3 <Landon Robins B - Last Filed: 07/15/18 16:55> Objective - Vital Signs/Intake and Output Vital Signs (last 24 hours): Temp Pulse Resp BP Pulse Ox 98.6 F 120 H 20 95/60 L 98 07/15/18 15:00 07/15/18 15:00 07/15/18 15:00 07/15/18 15:00 07/15/18 15:00 Intake and Output: 07/15/18 07/15/18 06:59 18:59 Intake Total 1765 Output Total 200 Balance 1565 - Medications Medications: Current Medications Benzocaine/Menthol (Cepacol Sore Throat) 1 nyasia MT Q1H PRN PRN Reason: Sore Throat Last Admin: 07/14/18 18:01 Dose: 1 nyasia Enoxaparin Sodium (Lovenox) 30 mg SC Q12 [facility] Last Admin: 07/15/18 12:30 Dose: 30 mg Metronidazole (Flagyl) 500 mg in 100 mls @ 100 mls/hr IVPB Q8H [facility]; Protocol Last Admin: 07/15/18 11:30 Dose: 100 mls/hr Piperacillin Sod/Tazobactam Sod (Zosyn 3.375 Gm Iv Premix) 3.375 gm in 50 mls @ 100 mls/hr IVPB Q6H [facility]; Protocol Last Admin: 07/15/18 14:09 Dose: 100 mls/hr Amino Acids (Clinimix 4.25/5 % "E" (1000 Ml)) 1,000 mls @ 83 mls/hr IV .Q12H3M ONE Stop: 07/15/18 18:12 Last Admin: 07/15/18 06:06 Dose: 83 mls/hr Multivitamins/Vitamin C 10 ml/Chromium/Copper/Manganese/Zinc 1 ml/ Amino Acids 1,011 mls @ 83 mls/hr IV .[id number] ONE Stop: 07/16/18 06:10 Amino Acids (Clinimix 4.25/5 % "E" (1000 Ml)) 1,000 mls @ 83 mls/hr IV .Q12H3M ONE Stop: 07/16/18 18:12 Ketorolac Tromethamine (Toradol) 15 mg IVP Q6 [facility] Last Admin: 07/15/18 12:23 Dose: 15 mg Levothyroxine Sodium (Synthroid) 175 mcg PO DAILY@0630 [facility] Last Admin: 07/15/18 06:18 Dose: Not Given Metoclopramide HCl (Reglan) 10 mg IVP ACHS [facility] Last Admin: 07/15/18 12:25 Dose: 10 mg Pantoprazole Sodium (Protonix Inj) 40 mg IVP DAILY [facility] Last Admin: 07/15/18 10:50 Dose: 40 mg Sodium Phosphate (Fleet Enema) 135 ml [place] BID [facility] Stop: 07/15/18 23:59 Last Admin: 07/15/18 11:00 Dose: Not Given Tramadol HCl (Ultram) 25 mg PO TID PRN PRN Reason: Pain, moderate (4-7) Zolpidem Tartrate (Ambien) 5 mg PO HS PRN PRN Reason: Insomnia - Labs Labs: 07/15/18 07:28 07/15/18 07:28 PT 14.8 SECONDS (9.7-12.2) H D 07/15/18 07:28 INR 1.4 D 07/15/18 07:28 APTT 39 SECONDS (21-34) H 07/09/18 11:31 Attending/Attestation - Attestation I have fully participated in the care of the patient.: Yes I have reviewed all pertinent clinical information, including history, physical exam and plan: Yes Notes (Text): Pt is improving clinically Fleet enema Passing Gas today, No BMs NG to LIS Repeat AXR in am Start PPN Plan d.w pt in detail.
[2018-07-12] MEDS ORDERED: PPN#1 IV ONE (18:00)
[2018-07-12] MEDS: Fat Emulsion 20% IV 250 ML IV SCH (19:09)
[2018-07-13] MEDS: Piperacill/Tazo 3.375gm in Dex 3.375 GM/50 ML BAG IVPB SCH ×4 (02:37→22:29)
[2018-07-13] MEDS: Potassium Chloride 40 MEQ in Dextrose 5%/0.45% NS 1,000 ML IV SCH ×3 (02:47→16:30)
[2018-07-13] MEDS: metroNIDAZOLE IV 500 mg/100 ml 500 MG/100 ML BAG IVPB SCH ×3 (04:05→20:53)
[2018-07-13] MEDS ORDERED: PPN#2 IV ONE (06:30)
[2018-07-13] MEDS: Levothyroxine 175 MCG TAB PO SCH (06:30)
[2018-07-13 07:55] LABS: BASO % 0.6 % (0.0-2.0); EOS # 0.2 K/uL (0.0-0.7); EOS % 4.4 % (0.0-4.0); HEMOGLOBIN 9.3 g/dL (11.0-16.0); LYMPH # 1.6 K/uL (1.0-4.3); LYMPH % 41.7 % (20.0-40.0); MEAN CELL VOLUME 91.3 fL (81.0-99.0); MEAN CORPUSCULAR HEMOGLOBIN 30.5 pg (27.0-31.0); MEAN CORPUSCULAR HGB CONC 33.3 g/dL (33.0-37.0); MEAN PLATELET VOLUME 7.9 fL (7.2-11.7); MONO # 0.4 K/uL (0.0-0.8); MONO % 9.8 % (0.0-10.0); NEUT # 1.7 K/uL (1.8-7.0); NEUT % 43.5 % (50.0-75.0); RBC 3.05 Mil/uL (3.80-5.20); RED CELL DISTRIBUTION WIDTH 17.3 % (11.5-14.5); WHITE BLOOD COUNT 3.8 K/uL (4.8-10.8)
[2018-07-13 08:07] LABS: PROTHROMBIN TIME 33.2 SECONDS (9.7-12.2)
[2018-07-13 08:23] LABS: ALBUMIN 2.8 g/dL (3.5-5.0); ALT/SGPT 24 U/L (9-52); AST/SGOT 14 U/L (14-36); BLOOD UREA NITROGEN 8 mg/dL (7-17); CALCIUM 7.6 mg/dl (8.6-10.4); GFR NON-AFRICAN AMERICAN > 60; HDL CHOLESTEROL 29 mg/dL (30-70)
--- NOTE | 2018-07-13 08:28 | CP.PCM.PN ---
<Caleb Reyes - Last Filed: 07/13/18 08:25> Subjective - Date & Time of Evaluation Date of Evaluation: 07/13/18 Time of Evaluation: 08:25 - Subjective Subjective: General Surgery Progress Note for Dr. Robins This 33F was seen and examined this AM at bedside. No acute events overnight. She was notably frustrated, expressed concerns that she is not showing signs of improvement. We discussed her concerns and acknowledged her frustrations. She reports flatus and no BM. She has no new complaints. Objective - Vital Signs/Intake and Output Vital Signs (last 24 hours): Temp Pulse Resp BP Pulse Ox 98.2 F 93 H 20 98/64 L 96 07/13/18 07:17 07/13/18 07:17 07/13/18 07:17 07/13/18 07:17 07/13/18 07:17 Intake and Output: 07/13/18 07/13/18 06:59 18:59 Intake Total 2489 Output Total 900 Balance 1589 - Medications Medications: Current Medications Benzocaine/Menthol (Cepacol Sore Throat) 1 nyasia MT Q1H PRN PRN Reason: Sore Throat Metronidazole (Flagyl) 500 mg in 100 mls @ 100 mls/hr IVPB Q8H [facility]; Protocol Last Admin: 07/13/18 04:05 Dose: 100 mls/hr Piperacillin Sod/Tazobactam Sod (Zosyn 3.375 Gm Iv Premix) 3.375 gm in 50 mls @ 100 mls/hr IVPB Q6H [facility]; Protocol Last Admin: 07/13/18 02:37 Dose: 100 mls/hr Potassium Chloride 40 meq/ (Dextrose/Sodium Chloride) 1,020 mls @ 130 mls/hr IV .Q7H51M [facility] Last Admin: 07/13/18 02:47 Dose: 130 mls/hr Potassium Chloride 40 meq/ (Amino Acids) 1,020 mls @ 83 mls/hr IV .[id number] ONE Stop: 07/13/18 18:47 Last Admin: 07/13/18 06:14 Dose: 83 mls/hr Fat Emulsion Intravenous (Intralipid 20%) 250 mls @ 42 mls/hr IV QOD@1800 [facility] Stop: 07/19/18 18:01 Last Admin: 07/12/18 19:09 Dose: 42 mls/hr Levothyroxine Sodium (Synthroid) 175 mcg PO DAILY@0630 [facility] Last Admin: 07/13/18 06:30 Dose: 175 mcg Metoclopramide HCl (Reglan) 10 mg IVP ACHS [facility] Last Admin: 07/13/18 06:30 Dose: 10 mg Morphine Sulfate (Morphine) 2 mg IVP Q4 PRN PRN Reason: Pain, moderate (4-7) Last Admin: 07/13/18 01:58 Dose: 2 mg Morphine Sulfate (Morphine) 4 mg IVP Q4H PRN PRN Reason: Pain, severe (8-10) Last Admin: 07/10/18 14:53 Dose: 4 mg Pantoprazole Sodium (Protonix Inj) 40 mg IVP DAILY [facility] Last Admin: 07/12/18 09:56 Dose: 40 mg Zolpidem Tartrate (Ambien) 5 mg PO HS PRN PRN Reason: Insomnia - Labs Labs: 07/13/18 07:40 07/13/18 07:40 PT 33.2 SECONDS (9.7-12.2) H D 07/13/18 07:40 INR 3.0 D 07/13/18 07:40 APTT 39 SECONDS (21-34) H 07/09/18 11:31 - Constitutional Appears: Non-toxic, No Acute Distress - Head Exam Head Exam: ATRAUMATIC, NORMAL INSPECTION, NORMOCEPHALIC - Eye Exam Eye Exam: EOMI, Normal appearance - ENT Exam ENT Exam: Mucous Membranes Moist, Normal Exam - Neck Exam Neck Exam: Normal Inspection - Respiratory Exam Respiratory Exam: Clear to Ausculation Bilateral, NORMAL BREATHING PATTERN - Cardiovascular Exam Cardiovascular Exam: REGULAR RHYTHM - GI/Abdominal Exam GI & Abdominal Exam: Soft, Tenderness (epigastric). absent: Distended - Neurological Exam Neurological Exam: Alert, Awake, Oriented x3 - Psychiatric Exam Psychiatric exam: Normal Affect, Normal Mood - Skin Skin Exam: Dry, Intact, Normal Color, Warm Assessment and Plan - Assessment and Plan (Free Text) Assessment: 33 year old female admitted with SBO Plan: -NGT Clamp trial -NPO -Lovenox -IV antibiotics -GI ppx D/W Dr. Shimon Reyes PGY3 <Landon Robins - Last Filed: 07/15/18 16:57> Objective - Vital Signs/Intake and Output Vital Signs (last 24 hours): Temp Pulse Resp BP Pulse Ox 98.6 F 120 H 20 95/60 L 98 07/15/18 15:00 07/15/18 15:00 07/15/18 15:00 07/15/18 15:00 07/15/18 15:00 Intake and Output: 07/15/18 07/15/18 06:59 18:59 Intake Total 1765 Output Total 200 Balance 1565 - Medications Medications: Current Medications Benzocaine/Menthol (Cepacol Sore Throat) 1 nyasia MT Q1H PRN PRN Reason: Sore Throat Last Admin: 07/14/18 18:01 Dose: 1 nyasia Enoxaparin Sodium (Lovenox) 30 mg SC Q12 [facility] Last Admin: 07/15/18 12:30 Dose: 30 mg Metronidazole (Flagyl) 500 mg in 100 mls @ 100 mls/hr IVPB Q8H [facility]; Protocol Last Admin: 07/15/18 11:30 Dose: 100 mls/hr Piperacillin Sod/Tazobactam Sod (Zosyn 3.375 Gm Iv Premix) 3.375 gm in 50 mls @ 100 mls/hr IVPB Q6H [facility]; Protocol Last Admin: 07/15/18 14:09 Dose: 100 mls/hr Amino Acids (Clinimix 4.25/5 % "E" (1000 Ml)) 1,000 mls @ 83 mls/hr IV .Q12H3M ONE Stop: 07/15/18 18:12 Last Admin: 07/15/18 06:06 Dose: 83 mls/hr Multivitamins/Vitamin C 10 ml/Chromium/Copper/Manganese/Zinc 1 ml/ Amino Acids 1,011 mls @ 83 mls/hr IV .[id number] ONE Stop: 07/16/18 06:10 Amino Acids (Clinimix 4.25/5 % "E" (1000 Ml)) 1,000 mls @ 83 mls/hr IV .Q12H3M ONE Stop: 07/16/18 18:12 Ketorolac Tromethamine (Toradol) 15 mg IVP Q6 [facility] Last Admin: 07/15/18 12:23 Dose: 15 mg Levothyroxine Sodium (Synthroid) 175 mcg PO DAILY@0630 [facility] Last Admin: 07/15/18 06:18 Dose: Not Given Metoclopramide HCl (Reglan) 10 mg IVP ACHS [facility] Last Admin: 07/15/18 12:25 Dose: 10 mg Pantoprazole Sodium (Protonix Inj) 40 mg IVP DAILY [facility] Last Admin: 07/15/18 10:50 Dose: 40 mg Sodium Phosphate (Fleet Enema) 135 ml [place] BID [facility] Stop: 07/15/18 23:59 Last Admin: 07/15/18 11:00 Dose: Not Given Tramadol HCl (Ultram) 25 mg PO TID PRN PRN Reason: Pain, moderate (4-7) Zolpidem Tartrate (Ambien) 5 mg PO HS PRN PRN Reason: Insomnia - Labs Labs: 07/15/18 07:28 07/15/18 07:28 PT 14.8 SECONDS (9.7-12.2) H D 07/15/18 07:28 INR 1.4 D 07/15/18 07:28 APTT 39 SECONDS (21-34) H 07/09/18 11:31 Attending/Attestation - Attestation I have personally seen and examined this patient.: Yes I have fully participated in the care of the patient.: Yes I have reviewed all pertinent clinical information, including history, physical exam and plan: Yes Notes (Text): Pt was seen and examined at bedside Agree with above note and assessment AXR look improved today Fleet enema Repeat AXR in am, DC NG tube is xray is improved. DVT prophylaxis only OOB to walk Plan d.w pt in detail Risk and benefit explained in detail.
[2018-07-13 08:30] LABS: LDL CHOLESTEROL 90 mg/dL (0-129)
[2018-07-13] MEDS: Enoxaparin 30 mg Syringe SC SCH ×2 (09:43→22:28)
--- NOTE | 2018-07-13 12:57 | RAD ---
Date of service: 07/13/2018 HISTORY: eval SBO COMPARISON: Abdominal radiographs dated 07/11/2018 FINDINGS: BOWEL: Enteric tube with tip in the stomach. Persistent dilated bowel loops with air-fluid levels. BONES: Normal. OTHER FINDINGS: None. IMPRESSION: Persistent small bowel obstruction.
--- NOTE | 2018-07-13 16:25 | CP.PCM.CON ---
History of Present Illness - History of Present Illness History of Present Illness: Palliative consult requested by Doctor Muñoz for goals of care discussion and emotional support Patient is a 33 yo lady admitted from home with diffused abdominal pain and vomiting X 1 days. Patient said she had vomited 7 X in one day. At first, emesis was mostly undigested food, than later turned to a bile . Pain was part ially resolved after vomiting. patient had constipation for the last 2 years and was told by her PMD that her " intestines were not working well". This is the firts time she is having this severe symptoms. Patient was recently treated with subtotal colectomy on 06/11/18 for severe closed loop SBO. At that time patient had extensive hospital stay, developed DVT and was treated for. X Ray on this admission was significant for persistant SBO. Patient is S/P NGT with large bile drainage. patient is given PPN for nutrition and kept NPO. PMH: migrains, PTSD, subtotal colectomy Soc. Hx: single, lives with brother and his girlfriend, unemployed , parents in [facility]. Hx: denied by patient Review of Systems - Constitutional Constitutional: Weight Loss - EENT Eyes: absent: As Per HPI, Blind Spots, Blurred Vision, Change in Vision, Decreased Night Vision, Diplopia, Discharge, Dry Eye, Exophthalmos, Floaters, Irritation, Itchy Eyes, Loss of Peripheral Vision, Pain, Photophobia, Requires Corrective Lenses, Sees Flashes, Spots in Vision, Tunnel Vision, Other Visual Disturbances, Loss of Vision, Other Ears: absent: As Per HPI, Decreased Hearing, Ear Discharge, Ear Pain, Tinnitus, Abnormal Hearing, Disequilibrium, Dizziness, Other Nose/Mouth/Throat: absent: As Per HPI, Epistaxis, Nasal Congestion, Nasal Discharge, Nasal Obstruction, Nasal Trauma, Nose Pain, Post Nasal Drip, Sinus Pain, Sinus Pressure, Bleeding Gums, Change in Voice, Dental Pain, Dry Mouth, Dysphagia, Halitosis, Hoarsness, Lip Swelling, Mouth Lesions, Mouth Pain, Odynophagia, Sore Throat, Throat Swelling, Tongue Swelling, Facial Pain, Neck Pain, Neck Mass, Other - Breasts Breasts: absent: As Per HPI, Change in Shape, Mass, Pain, Nipple Discharge, Nipple Inversion, Skin Changes, Swelling, Other - Cardiovascular Cardiovascular: absent: As Per HPI, Acrocyanosis, Chest Pain, Chest Pain at Rest, Chest Pain with Activity, Claudication, Diaphoresis, Dyspnea, Dyspnea on E xertion, Edema, Irregular Heart Rhythm, Pain Radiating to Arm/Neck/Jaw, Leg Edema, Leg Ulcers, Lightheadedness, Orthopnea, Palpitations, Paroxysmal Nocturnal Dyspnea, Pedal Edema, Radiating Pain, Rapid Heart Rate, Slow Heart Rate, Syncope, Other - Respiratory Respiratory: absent: As Per HPI, Cough, Dyspnea, Hemoptysis, Dyspnea on Exertion, Wheezing, Snoring, Stridor, Pain on Inspiration, Chest Congestion, Excessive Mucous Production, Change in Mucous Color, Pain with Coughing, Other - Gastrointestinal Gastrointestinal: Abdominal Pain, Constipation, Nausea, Vomiting - Genitourinary Genitourinary: absent: As Per HPI, Change in Urinary Stream, Difficulty Urinating, Dysuria, Flank Pain, Hematuria, Pyuria, Nocturia, Urinary Incontinence, Urinary Frequency, Urinary Hesitance, Urinary Urgency, Voiding Freq/Small Amts, Freq UTI, Hx Renal/Bladder Calculi, Hx /Renal Surgery, Awais dder Distension, Other - Reproductive: Female Reproductive:Female: Cycle <21 Days - Menstruation Menstruation: Cycle <21 Days - Musculoskeletal Musculoskeletal: absent: As Per HPI, Abnormal Gait, Arthralgias, Atrophy, Back Pain, Deformity, Joint Swelling, Limited Range of Motion, Loss of Height, Muscle Cramps, Muscle Weakness, Myalgias, Neck Pain, Numbness, Radiating Pain into Logan b, Stiffness, Tingling, Other - Integumentary Integumentary: absent: As Per HPI, Acne, Alopecia, Bleeding Lesions, Change in Hair, Change in Nails, Change in Pigmentation, Changing Lesions, Dry Skin, Erythema, Furuncle, Hirsutism, Lesions, New Lesions, Non-Healing Lesions, Photosensitivity, Pruritus, Rash, Skin Pain, Skin Ulcer, Sores, Striae, Swelling, Unusual Bruising, Wounds, Jaundice, Other - Psychiatric Psychiatric: Depression, Hopelessness - Endocrine Endocrine: absent: As Per HPI, Change in Body Appearance, Change in Libido, Cold Intolorance, Deepening of Voice, Excessive Sweating, Fatigue, Flushing, Heat Intolorance, Increase in Ring/Shoe/Hat Size, Palpitations, Polydipsia, Polyphagia, Polyuria, Other - Hematologic/Lymphatic Hematologic: absent: As Per HPI, Easy Bleeding, Easy Bruising, Lymphadenopathy, Other Past Patient History - Infectious Disease Hx of Infectious Diseases: None - Past Medical History & Family History Past Medical History?: Yes Past Family History: Reviewed and not pertinent - Past Social History Smoking Status: Never Smoked - NEUROLOGICAL Hx Migraine: Yes - ENDOCRINE/METABOLIC Hx Hyperthyroidism: Yes Hx Hypothyroidism: Yes - HEMATOLOGICAL/ONCOLOGICAL Hx Blood Transfusions: Yes Other/Comment: R and L Portal vein thrombosis - MUSCULOSKELETAL/RHEUMATOLOGICAL Hx Falls: No - GASTROINTESTINAL Hx Gastrointestinal Disorders: Yes Hx Bowel Surgery: Yes (PARTIAL COLECTOMY) Hx Constipation: Yes Other/Comment: CHAGAS SYNDROME, ACHALASIA - PSYCHIATRIC Hx Substance Use: No - SURGICAL HISTORY Hx Surgeries: Yes Other/Comment: subtotal colectomy with ileorectal anastamosis 06/2018, sigmoidectomy prior - ANESTHESIA Hx Anesthesia: Yes Hx Anesthesia Reactions: No Hx Malignant Hyperthermia: No Meds Allergies/Adverse Reactions: Allergies Allergy/AdvReac Type Severity Reaction Status Date / Time No Known Allergies Allergy Verified 07/09/18 10:55 - Medications Medications: Current Medications Benzocaine/Menthol (Cepacol Sore Throat) 1 nyasia MT Q1H PRN PRN Reason: Sore Throat Enoxaparin Sodium (Lovenox) 30 mg SC Q12 [facility] Last Admin: 07/13/18 09:43 Dose: 30 mg Metronidazole (Flagyl) 500 mg in 100 mls @ 100 mls/hr IVPB Q8H [facility]; Protocol Last Admin: 07/13/18 11:18 Dose: 100 mls/hr Piperacillin Sod/Tazobactam Sod (Zosyn 3.375 Gm Iv Premix) 3.375 gm in 50 mls @ 100 mls/hr IVPB Q6H [facility]; Protocol Last Admin: 07/13/18 14:17 Dose: 100 mls/hr Potassium Chloride 40 meq/ (Dextrose/Sodium Chloride) 1,020 mls @ 130 mls/hr IV .Q7H51M [facility] Last Admin: 07/13/18 09:40 Dose: 130 mls/hr Potassium Chloride 40 meq/ (Amino Acids) 1,020 mls @ 83 mls/hr IV .[id number] ONE Stop: 07/13/18 18:47 Last Admin: 07/13/18 06:14 Dose: 83 mls/hr Fat Emulsion Intravenous (Intralipid 20%) 250 mls @ 42 mls/hr IV QOD@1800 [facility] Stop: 07/19/18 18:01 Last Admin: 07/12/18 19:09 Dose: 42 mls/hr Multivitamins/Vitamin C 10 ml/Chromium/Copper/Manganese/Zinc 1 ml/ Amino Acids 1,011 mls @ 83 mls/hr IV .[id number] ONE Stop: 07/14/18 06:10 Amino Acids (Clinimix 4.25/5 % (1000 Ml)) 1,000 mls @ 83 mls/hr IV .Q12H3M ONE Stop: 07/14/18 18:27 Levothyroxine Sodium (Synthroid) 175 mcg PO DAILY@0630 [facility] Last Admin: 07/13/18 06:30 Dose: 175 mcg Metoclopramide HCl (Reglan) 10 mg IVP ACHS [facility] Last Admin: 07/13/18 11:18 Dose: 10 mg Morphine Sulfate (Morphine) 2 mg IVP Q4 PRN PRN Reason: Pain, moderate (4-7) Last Admin: 07/13/18 14:17 Dose: 2 mg Morphine Sulfate (Morphine) 4 mg IVP Q4H PRN PRN Reason: Pain, severe (8-10) Last Admin: 07/10/18 14:53 Dose: 4 mg Pantoprazole Sodium (Protonix Inj) 40 mg IVP DAILY [facility] Last Admin: 07/13/18 09:43 Dose: 40 mg Zolpidem Tartrate (Ambien) 5 mg PO HS PRN PRN Reason: Insomnia Physical Exam - Constitutional Appears: In Acute Distress, Chronically Ill - Head Exam Head Exam: ATRAUMATIC, NORMAL INSPECTION, NORMOCEPHALIC - Eye Exam Eye Exam: EOMI, Normal appearance, PERRL Pupil Exam: NORMAL ACCOMODATION, PERRL - ENT Exam Additional comments: NGT - Neck Exam Neck exam: Positive for: Normal Inspection - Respiratory Exam Respiratory Exam: Clear to Auscultation Bilateral, NORMAL BREATHING PATTERN - Cardiovascular Exam Cardiovascular Exam: Tachycardia, REGULAR RHYTHM, +S1, +S2 - GI/Abdominal Exam GI & Abdominal Exam: Diminished Bowel Sounds Additional comments: constipation, positive flatus - Rectal Exam Rectal Exam: Deferred - Extremities Exam Extremities exam: Positive for: normal inspection - Back Exam Back exam: NORMAL INSPECTION - Neurological Exam Neurological exam: Alert, Oriented x3 - Psychiatric Exam Psychiatric exam: Anxious, Depressed - Skin Skin Exam: Dry, Intact, Normal Color, Warm Results - Vital Signs Recent Vital Signs: Last Vital Signs Temp 98.2 F 07/13/18 15:00 Pulse 85 07/13/18 15:00 Resp 20 07/13/18 15:00 BP 107/72 07/13/18 15:00 Pulse Ox 97 07/13/18 15:00 - Labs Result Diagrams: 07/13/18 07:40 07/13/18 07:40 Labs: Laboratory Results - last 24 hr 07/12/18 07/12/18 07/13/18 16:12 20:56 06:13 WBC RBC Hgb Hct MCV MCH MCHC RDW Plt Count MPV Neut % (Auto) Lymph % (Auto) [place] % (Auto) Eos % (Auto) Baso % (Auto) Neut # (Auto) Lymph # (Auto) [place] # (Auto) Eos # (Auto) Baso # (Auto) PT INR Sodium Potassium Chloride Carbon Dioxide Anion Gap BUN Creatinine Est GFR ( Amer) Est GFR (Non-Af Amer) POC Glucose (mg/dL) 87 87 105 Random Glucose Calcium Phosphorus Magnesium Total Bilirubin AST ALT Alkaline Phosphatase Total Protein Albumin Globulin Albumin/Globulin Ratio Triglycerides Cholesterol LDL Cholesterol Direct HDL Cholesterol 07/13/18 07/13/18 07/13/18 07:40 07:40 07:40 WBC 3.8 L RBC 3.05 L Hgb 9.3 L Hct 27.9 L MCV 91.3 MCH 30.5 MCHC 33.3 RDW 17.3 H Plt Count 309 MPV 7.9 Neut % (Auto) 43.5 L Lymph % (Auto) 41.7 H [place] % (Auto) 9.8 Eos % (Auto) 4.4 H Baso % (Auto) 0.6 Neut # (Auto) 1.7 L Lymph # (Auto) 1.6 [place] # (Auto) 0.4 Eos # (Auto) 0.2 Baso # (Auto) 0.0 PT 33.2 H D INR 3.0 D Sodium 132 Potassium 3.9 Chloride 100 Carbon Dioxide 23 Anion Gap 12 BUN 8 Creatinine 0.5 L Est GFR ( Amer) > 60 Est GFR (Non-Af Amer) > 60 POC Glucose (mg/dL) Random Glucose 111 H Calcium 7.6 L Phosphorus 1.3 L Magnesium 1.7 Total Bilirubin 0.4 AST 14 ALT 24 Alkaline Phosphatase 46 Total Protein 5.7 L Albumin 2.8 L Globulin 2.9 Albumin/Globulin Ratio 1.0 Triglycerides 113 D Cholesterol 132 LDL Cholesterol Direct 90 HDL Cholesterol 29 L 07/13/18 11:42 WBC RBC Hgb Hct MCV MCH MCHC RDW Plt Count MPV Neut % (Auto) Lymph % (Auto) [place] % (Auto) Eos % (Auto) Baso % (Auto) Neut # (Auto) Lymph # (Auto) [place] # (Auto) Eos # (Auto) Baso # (Auto) PT INR Sodium Potassium Chloride Carbon Dioxide Anion Gap BUN Creatinine Est GFR ( Amer) Est GFR (Non-Af Amer) POC Glucose (mg/dL) 123 H Random Glucose Calcium Phosphorus Magnesium Total Bilirubin AST ALT Alkaline Phosphatase Total Protein Albumin Globulin Albumin/Globulin Ratio Triglycerides Cholesterol LDL Cholesterol Direct HDL Cholesterol Assessment & Plan - Assessment and Plan (Free Text) Assessment: Palliative consult Full Code, there is no Advance directive on chart, PPS 60% I reviewed medical records, all diagnostic studies, examined and interviewed patient in the bed. In demand translation used. patient is alert, oriented X 3, with affect that is depressed. Patient is only [place] speaking. Skin is intact. There is mid abdomen old scar from partial colectomy in June. NGT in place, clamped. Wall container filled with bile green drainage from NGT. NPO. PPN on board. Denies abdominal pain. Denies BM. Reports flatus. Reports mild abdominal pain to lower abdomen mostly at the point of old surgical site. BP 98/46, HR 93, O2Sat 96 % RA. I reviewed patient's clinical presentation and elicited her understanding about her. She stated being aware of poor condition of her intestines. I shared with patient what I discussed with Leaded Glass Installer this morning about how complex her condition is. She cried. I reassured her of all interventions being applied to support her condition, including PPN. I also emphasized that the PPN is not meant to be given indefinitely and it will be up to entire Medical and Surgical team to find out the best course of action. I explained to patient that most likely she was not a candidate for a PEG due to lack of peristalsis. Patient asked to be applied al interventions available to support her life. She said ' I want to live " and cried more. I reassured her of current treatment. Patient reports insomnia due to her health concerns. She is not able to swallow pills. I advised her to take IV pain meds before going to sleep as it will help her fall asleep. Impression * Chronic constipation * Severe closed loop SBO * Uncertain surgical interventions 2nd to condition * Intolerance of PO intake * Insomnia 2nd to clinical conditions and concerns * At risk for malnutrition Suggestions * Would try ice chips and clear liquids as tolerated while NGT clamped * Reinforce ambulation as tolerated * Continue PPN * Give Toradol IM at Q HS to assist with pain and promote sleep palliative care will continue to fallow up with patient and with Sx regarding care of this patient. At this time , planing of care looks very difficult due to complex GI condition. Advance care planing 35 min
[2018-07-13] MEDS ORDERED: Potassium Phosphate 15 MMOLE in Sodium Chloride 0.9% 250 ML IV ONE (16:29)
[2018-07-13] MEDS ORDERED: PPN #3 IV ONE (18:00)
[2018-07-14] MEDS: Potassium Chloride 40 MEQ in Dextrose 5%/0.45% NS 1,000 ML IV SCH ×4 (02:06→20:14)
[2018-07-14] MEDS: Piperacill/Tazo 3.375gm in Dex 3.375 GM/50 ML BAG IVPB SCH ×4 (02:06→21:39)
[2018-07-14] MEDS: metroNIDAZOLE IV 500 mg/100 ml 500 MG/100 ML BAG IVPB SCH ×3 (03:02→20:11)
[2018-07-14] MEDS: Levothyroxine 175 MCG TAB PO SCH (06:22)
[2018-07-14] MEDS ORDERED: PPN #4 IV ONE (06:25)
[2018-07-14 06:41] LABS: BASO % 0.9 % (0.0-2.0); EOS # 0.1 K/uL (0.0-0.7); EOS % 3.7 % (0.0-4.0); HEMOGLOBIN 9.8 g/dL (11.0-16.0); LYMPH # 1.3 K/uL (1.0-4.3); LYMPH % 39.9 % (20.0-40.0); MEAN CELL VOLUME 91.1 fL (81.0-99.0); MEAN CORPUSCULAR HEMOGLOBIN 30.9 pg (27.0-31.0); MEAN CORPUSCULAR HGB CONC 33.9 g/dL (33.0-37.0); MEAN PLATELET VOLUME 7.8 fL (7.2-11.7); MONO # 0.3 K/uL (0.0-0.8); MONO % 8.5 % (0.0-10.0); NEUT # 1.6 K/uL (1.8-7.0); RBC 3.16 Mil/uL (3.80-5.20); RED CELL DISTRIBUTION WIDTH 17.2 % (11.5-14.5); WHITE BLOOD COUNT 3.3 K/uL (4.8-10.8)
[2018-07-14 07:03] LABS: ALT/SGPT 21 U/L (9-52); AST/SGOT 16 U/L (14-36); BLOOD UREA NITROGEN 8 mg/dL (7-17); CALCIUM 7.2 mg/dl (8.6-10.4); GFR NON-AFRICAN AMERICAN > 60
--- NOTE | 2018-07-14 08:46 | RAD ---
Date of service: 07/14/2018 HISTORY: sbo COMPARISON: Abdomen obstructive series 07/13/2018. FINDINGS: BOWEL: Distended loops of bowel remain the upper and lower abdomen in this single supine frontal projection with surgical chain sutures again seen at the left lower quadrant/flank. Nasogastric tube is again seen terminating at the left upper quadrant. Bowel obstruction pattern is not significantly changed as imaged. Obstructive series would be more accurate in evaluating bowel obstruction than single KUB. BONES: Normal. OTHER FINDINGS: None. IMPRESSION: No significant interval change in bowel obstruction pattern. Nasogastric tube unchanged in position.
[2018-07-14] MEDS: Enoxaparin 30 mg Syringe SC SCH ×2 (10:34→21:40)
--- NOTE | 2018-07-14 13:53 | CP.PCM.PN ---
<Natasha Fallon - Last Filed: 07/14/18 13:56> Subjective - Date & Time of Evaluation Date of Evaluation: 07/14/18 Time of Evaluation: 07:00 - Subjective Subjective: GENERAL SURGERY PROGRESS NOTE FOR DR. ROBINS Patient seen and examined at bedside. She reports intermittent pain that comes and goes. She had some small BMs after the enema yesterday. She reports discomfort from the NG tube. Objective - Vital Signs/Intake and Output Vital Signs (last 24 hours): Temp Pulse Resp BP Pulse Ox 98.3 F 74 18 118/83 99 07/14/18 07:14 07/14/18 07:14 07/14/18 07:14 07/14/18 07:14 07/13/18 23:05 Intake and Output: 07/14/18 07/14/18 06:59 18:59 Intake Total 3093 Output Total 700 Balance 2393 - Medications Medications: Current Medications Benzocaine/Menthol (Cepacol Sore Throat) 1 nyasia MT Q1H PRN PRN Reason: Sore Throat Enoxaparin Sodium (Lovenox) 30 mg SC Q12 [facility] Last Admin: 07/14/18 10:34 Dose: 30 mg Metronidazole (Flagyl) 500 mg in 100 mls @ 100 mls/hr IVPB Q8H [facility]; Protocol Last Admin: 07/14/18 13:11 Dose: 100 mls/hr Piperacillin Sod/Tazobactam Sod (Zosyn 3.375 Gm Iv Premix) 3.375 gm in 50 mls @ 100 mls/hr IVPB Q6H [facility]; Protocol Last Admin: 07/14/18 10:36 Dose: 100 mls/hr Potassium Chloride 40 meq/ (Dextrose/Sodium Chloride) 1,020 mls @ 130 mls/hr IV .Q7H51M [facility] Last Admin: 07/14/18 10:25 Dose: Not Given Fat Emulsion Intravenous (Intralipid 20%) 250 mls @ 42 mls/hr IV QOD@1800 [facility] Stop: 07/19/18 18:01 Last Admin: 07/12/18 19:09 Dose: 42 mls/hr Amino Acids (Clinimix 4.25/5 % (1000 Ml)) 1,000 mls @ 83 mls/hr IV .Q12H3M [facility] Stop: 07/14/18 18:27 Last Admin: 07/14/18 06:22 Dose: 83 mls/hr Multivitamins/Vitamin C 10 ml/Chromium/Copper/Manganese/Zinc 1 ml/ Amino Acids 1,011 mls @ 83 mls/hr IV .[id number] [facility] Stop: 07/15/18 06:10 Amino Acids (Clinimix 4.25/5 % (1000 Ml)) 1,000 mls @ 83 mls/hr IV .Q12H3M [facility] Stop: 07/15/18 18:12 Levothyroxine Sodium (Synthroid) 175 mcg PO DAILY@0630 [facility] Last Admin: 07/14/18 06:22 Dose: 175 mcg Metoclopramide HCl (Reglan) [address] [facility] Last Admin: 07/14/18 10:34 Dose: 10 mg Morphine Sulfate (Morphine) 2 mg IVP Q4 PRN PRN Reason: Pain, moderate (4-7) Last Admin: 07/13/18 22:39 Dose: 2 mg Morphine Sulfate (Morphine) 4 mg IVP Q4H PRN PRN Reason: Pain, severe (8-10) Last Admin: 07/10/18 14:53 Dose: 4 mg Pantoprazole Sodium (Protonix Inj) [address] [facility] Last Admin: 07/14/18 10:33 Dose: 40 mg Sodium Phosphate (Fleet Enema) [address] [facility] Stop: 07/15/18 23:59 Last Admin: 07/14/18 13:49 Dose: Not Given Zolpidem Tartrate (Ambien) 5 mg PO HS PRN PRN Reason: Insomnia - Labs Labs: 07/14/18 06:18 07/14/18 06:18 PT 33.2 SECONDS (9.7-12.2) H D 07/13/18 07:40 INR 3.0 D 07/13/18 07:40 APTT 39 SECONDS (21-34) H 07/09/18 11:31 - Constitutional Appears: Non-toxic, No Acute Distress - Head Exam Head Exam: ATRAUMATIC, NORMAL INSPECTION - Eye Exam Eye Exam: Normal appearance - Respiratory Exam Respiratory Exam: NORMAL BREATHING PATTERN. absent: Respiratory Distress - Cardiovascular Exam Cardiovascular Exam: +S1, +S2 - GI/Abdominal Exam GI & Abdominal Exam: Soft, Tenderness (mild tenderness lower midline). absent: Distended, Firm, Guarding, Rigid, Rebound - Neurological Exam Neurological Exam: Alert, Awake - Psychiatric Exam Psychiatric exam: Depressed Assessment and Plan - Assessment and Plan (Free Text) Assessment: 33 year old female with PMHx of constipation s/p subtotal colectomy, admitted with SBO Plan: - Abdominal X-ray reviewed - Remove NG tube - Full liquids - Lovenox - GI ppx - Fleet enemas over the weekend - Discussed plan with Dr. Shimon Fallon PGY-4 <Landon Robins - Last Filed: 07/15/18 16:58> Objective - Vital Signs/Intake and Output Vital Signs (last 24 hours): Temp Pulse Resp BP Pulse Ox 98.6 F 120 H 20 95/60 L 98 07/15/18 15:00 07/15/18 15:00 07/15/18 15:00 07/15/18 15:00 07/15/18 15:00 Intake and Output: 07/15/18 07/15/18 06:59 18:59 Intake Total 1765 Output Total 200 Balance 1565 - Medications Medications: Current Medications Benzocaine/Menthol (Cepacol Sore Throat) 1 nyasia MT Q1H PRN PRN Reason: Sore Throat Last Admin: 07/14/18 18:01 Dose: 1 nyasia Enoxaparin Sodium (Lovenox) 30 mg SC Q12 [facility] Last Admin: 07/15/18 12:30 Dose: 30 mg Metronidazole (Flagyl) 500 mg in 100 mls @ 100 mls/hr IVPB Q8H [facility]; Protocol Last Admin: 07/15/18 11:30 Dose: 100 mls/hr Piperacillin Sod/Tazobactam Sod (Zosyn 3.375 Gm Iv Premix) 3.375 gm in 50 mls @ 100 mls/hr IVPB Q6H [facility]; Protocol Last Admin: 07/15/18 14:09 Dose: 100 mls/hr Amino Acids (Clinimix 4.25/5 % "E" (1000 Ml)) 1,000 mls @ 83 mls/hr IV .Q12H3M [facility] Stop: 07/15/18 18:12 Last Admin: 07/15/18 06:06 Dose: 83 mls/hr Multivitamins/Vitamin C 10 ml/Chromium/Copper/Manganese/Zinc 1 ml/ Amino Acids 1,011 mls @ 83 mls/hr IV .[id number] [facility] Stop: 07/16/18 06:10 Amino Acids (Clinimix 4.25/5 % "E" (1000 Ml)) 1,000 mls @ 83 mls/hr IV .Q12H3M [facility] Stop: 07/16/18 18:12 Ketorolac Tromethamine (Toradol) [address] [facility] Last Admin: 07/15/18 12:23 Dose: 15 mg Levothyroxine Sodium (Synthroid) 175 mcg PO DAILY@0630 [facility] Last Admin: 07/15/18 06:18 Dose: Not Given Metoclopramide HCl (Reglan) [address] [facility] Last Admin: 07/15/18 12:25 Dose: 10 mg Pantoprazole Sodium (Protonix Inj) [address] [facility] Last Admin: 07/15/18 10:50 Dose: 40 mg Sodium Phosphate (Fleet Enema) 135 ml [place] BID [facility] Stop: 07/15/18 23:59 Last Admin: 07/15/18 11:00 Dose: Not Given Tramadol HCl (Ultram) 25 mg PO TID PRN PRN Reason: Pain, moderate (4-7) Zolpidem Tartrate (Ambien) 5 mg PO HS PRN PRN Reason: Insomnia - Labs Labs: 07/15/18 07:28 07/15/18 07:28 PT 14.8 SECONDS (9.7-12.2) H D 07/15/18 07:28 INR 1.4 D 07/15/18 07:28 APTT 39 SECONDS (21-34) H 07/09/18 11:31 Attending/Attestation - Attestation I have fully participated in the care of the patient.: Yes I have reviewed all pertinent clinical information, including history, physical exam and plan: Yes Notes (Text): Pt with PSBO Passing Gas, Had BM after Fleet enema c.w liquid diet Dulcolax suppositories C/w PPN DVT prophylaxis OOB to Walk Plan d.w pt in detail.
[2018-07-14] MEDS ORDERED: PPN #5 IV ONE (18:00)
[2018-07-14] MEDS: Fat Emulsion 20% IV 250 ML IV SCH (18:01)
[2018-07-15] MEDS: Piperacill/Tazo 3.375gm in Dex 3.375 GM/50 ML BAG IVPB SCH ×4 (03:41→21:14)
[2018-07-15] MEDS: metroNIDAZOLE IV 500 mg/100 ml 500 MG/100 ML BAG IVPB SCH ×3 (04:54→19:56)
[2018-07-15] MEDS ORDERED: PPN #6 IV ONE (06:10)
[2018-07-15] MEDS: Levothyroxine 175 MCG TAB PO SCH (06:18)
[2018-07-15 07:35] LABS: BASO % 0.7 % (0.0-2.0); EOS # 0.1 K/uL (0.0-0.7); EOS % 1.6 % (0.0-4.0); HEMOGLOBIN 10.6 g/dL (11.0-16.0); LYMPH # 1.5 K/uL (1.0-4.3); LYMPH % 24.5 % (20.0-40.0); MEAN CELL VOLUME 90.3 fL (81.0-99.0); MEAN CORPUSCULAR HEMOGLOBIN 30.7 pg (27.0-31.0); MEAN PLATELET VOLUME 7.7 fL (7.2-11.7); MONO # 0.5 K/uL (0.0-0.8); MONO % 8.2 % (0.0-10.0); NEUT # 4.1 K/uL (1.8-7.0); NRBC % 0.1 % (0.0-2.0); RBC 3.45 Mil/uL (3.80-5.20); RED CELL DISTRIBUTION WIDTH 17.2 % (11.5-14.5)
[2018-07-15 07:40] LABS: WHITE BLOOD COUNT 6.2 K/uL (4.8-10.8)
[2018-07-15 08:09] LABS: ALB/GLOB RATIO 1.1 (1.0-2.1); ALBUMIN 3.2 g/dL (3.5-5.0); ALT/SGPT 19 U/L (9-52); AST/SGOT 15 U/L (14-36); BLOOD UREA NITROGEN 12 mg/dL (7-17); CALCIUM 8.5 mg/dl (8.6-10.4); GFR NON-AFRICAN AMERICAN > 60
[2018-07-15 08:35] LABS: INR 1.4; PROTHROMBIN TIME 14.8 SECONDS (9.7-12.2)
--- NOTE | 2018-07-15 09:10 | CP.PCM.PN ---
<Natasha Fallon - Last Filed: 07/16/18 14:11> Subjective - Date & Time of Evaluation Date of Evaluation: 07/15/18 Time of Evaluation: 07:00 - Subjective Subjective: GENERAL SURGERY PROGRESS NOTE FOR DR. ROBINS Patient seen and examined at bedside. She tolerated some of her full liquids yesterday. Later in the evening/night, she vomited twice. Second time after morphine. She is passing flatus. She had a BM after the suppository yesterday and then refused enema. Objective - Vital Signs/Intake and Output Vital Signs (last 24 hours): Temp Pulse Resp BP Pulse Ox 98.2 F 70 20 118/81 97 07/15/18 07:00 07/15/18 07:00 07/15/18 07:00 07/15/18 07:00 07/15/18 07:00 Intake and Output: 07/15/18 07/15/18 06:59 18:59 Intake Total 900 Output Total 200 Balance 700 - Medications Medications: Current Medications Benzocaine/Menthol (Cepacol Sore Throat) 1 nyasia MT Q1H PRN PRN Reason: Sore Throat Last Admin: 07/14/18 18:01 Dose: 1 nyasia Enoxaparin Sodium (Lovenox) 30 mg SC Q12 [facility] Last Admin: 07/14/18 21:40 Dose: 30 mg Metronidazole (Flagyl) 500 mg in 100 mls @ 100 mls/hr IVPB Q8H [facility]; Protocol Last Admin: 07/15/18 04:54 Dose: 100 mls/hr Piperacillin Sod/Tazobactam Sod (Zosyn 3.375 Gm Iv Premix) 3.375 gm in 50 mls @ 100 mls/hr IVPB Q6H [facility]; Protocol Last Admin: 07/15/18 08:30 Dose: 100 mls/hr Amino Acids (Clinimix 4.25/5 % "E" (1000 Ml)) 1,000 mls @ 83 mls/hr IV .Q12H3M ONE Stop: 07/15/18 18:12 Last Admin: 07/15/18 06:06 Dose: 83 mls/hr Multivitamins/Vitamin C 10 ml/Chromium/Copper/Manganese/Zinc 1 ml/ Amino Acids 1,011 mls @ 83 mls/hr IV .[id number] ONE Stop: 07/16/18 06:10 Amino Acids (Clinimix 4.25/5 % "E" (1000 Ml)) 1,000 mls @ 83 mls/hr IV .Q12H3M ONE Stop: 07/16/18 18:12 Ketorolac Tromethamine (Toradol) 15 mg IVP Q6 [facility] Last Admin: 07/15/18 06:22 Dose: 15 mg Levothyroxine Sodium (Synthroid) 175 mcg PO DAILY@0630 [facility] Last Admin: 07/15/18 06:18 Dose: Not Given Metoclopramide HCl (Reglan) 10 mg IVP ACHS [facility] Last Admin: 07/15/18 07:40 Dose: 10 mg Morphine Sulfate (Morphine) 2 mg IVP Q4 PRN PRN Reason: Pain, moderate (4-7) Last Admin: 07/15/18 04:42 Dose: 2 mg Pantoprazole Sodium (Protonix Inj) 40 mg IVP DAILY [facility] Last Admin: 07/14/18 10:33 Dose: 40 mg Sodium Phosphate (Fleet Enema) 135 ml NC BID [facility] Stop: 07/15/18 23:59 Last Admin: 07/14/18 20:27 Dose: Not Given Zolpidem Tartrate (Ambien) 5 mg PO HS PRN PRN Reason: Insomnia - Labs Labs: 07/15/18 07:28 07/15/18 07:28 PT 14.8 SECONDS (9.7-12.2) H D 07/15/18 07:28 INR 1.4 D 07/15/18 07:28 APTT 39 SECONDS (21-34) H 07/09/18 11:31 - Constitutional Appears: Non-toxic, No Acute Distress - Head Exam Head Exam: ATRAUMATIC, NORMAL INSPECTION - Eye Exam Eye Exam: EOMI - Respiratory Exam Respiratory Exam: NORMAL BREATHING PATTERN. absent: Respiratory Distress - Cardiovascular Exam Cardiovascular Exam: +S1, +S2 - GI/Abdominal Exam GI & Abdominal Exam: Soft, Tenderness (mild tenderness at previous incision area). absent: Distended, Firm, Guarding, Rigid, Rebound - Neurological Exam Neurological Exam: Alert, Awake, Oriented x3 - Psychiatric Exam Psychiatric exam: Normal Affect, Normal Mood - Skin Skin Exam: Dry, Normal Color Assessment and Plan - Assessment and Plan (Free Text) Assessment: 33 year old female with PMHx of constipation s/p subtotal colectomy, admitted with SBO Plan: - Continue Full liquids - Lovenox - GI ppx - Fleet enemas over the weekend - If no improvement by tomorrow, will repeat CT Abd/Pelvis - Discussed plan with Dr. Shimon Fallon PGY-4 <Landon Robins - Last Filed: 07/16/18 14:44> Objective - Vital Signs/Intake and Output Vital Signs (last 24 hours): Temp Pulse Resp BP Pulse Ox 98.5 F 95 H 20 101/74 98 07/16/18 08:18 07/16/18 08:18 07/16/18 08:18 07/16/18 08:18 07/16/18 08:18 Intake and Output: 07/16/18 07/16/18 06:59 18:59 Intake Total 1795 Balance 1795 - Medications Medications: Current Medications Benzocaine/Menthol (Cepacol Sore Throat) 1 nyasia MT Q1H PRN PRN Reason: Sore Throat Last Admin: 07/14/18 18:01 Dose: 1 nyasia Enoxaparin Sodium (Lovenox) 30 mg SC Q12 [facility] Last Admin: 07/16/18 09:19 Dose: 30 mg Metronidazole (Flagyl) 500 mg in 100 mls @ 100 mls/hr IVPB Q8H [facility]; Protocol Last Admin: 07/16/18 11:46 Dose: 100 mls/hr Piperacillin Sod/Tazobactam Sod (Zosyn 3.375 Gm Iv Premix) 3.375 gm in 50 mls @ 100 mls/hr IVPB Q6H [facility]; Protocol Last Admin: 07/16/18 09:18 Dose: 100 mls/hr Amino Acids (Clinimix 4.25/5 % "E" (1000 Ml)) 1,000 mls @ 83 mls/hr IV .Q12H3M ONE Stop: 07/16/18 18:12 Last Admin: 07/16/18 05:45 Dose: 83 mls/hr Chromium/Copper/Manganese/Zinc 1 ml/ Multivitamins/Vitamin C 10 ml/ Amino Acids 1,011 mls @ 83 mls/hr IV .[id number] ONE Stop: 07/17/18 06:10 Amino Acids (Clinimix 4.25/5 % "E" (1000 Ml)) 1,000 mls @ 83 mls/hr IV .Q12H3M [facility] Stop: 07/17/18 17:59 Ketorolac Tromethamine (Toradol) 15 mg IVP Q6 [facility] Last Admin: 07/16/18 11:45 Dose: 15 mg Levothyroxine Sodium (Synthroid) 175 mcg PO DAILY@0630 [facility] Last Admin: 07/16/18 06:24 Dose: 175 mcg Metoclopramide HCl (Reglan) 10 mg IVP ACHS [facility] Last Admin: 07/16/18 11:45 Dose: 10 mg Pantoprazole Sodium (Protonix Inj) 40 mg IVP DAILY [facility] Last Admin: 07/16/18 09:18 Dose: 40 mg Tramadol HCl (Ultram) 25 mg PO TID PRN PRN Reason: Pain, moderate (4-7) Zolpidem Tartrate (Ambien) 5 mg PO HS PRN PRN Reason: Insomnia - Labs Labs: 07/16/18 06:39 07/16/18 06:39 PT 14.8 SECONDS (9.7-12.2) H D 07/15/18 07:28 INR 1.4 D 07/15/18 07:28 APTT 39 SECONDS (21-34) H 07/09/18 11:31 Attending/Attestation - Attestation I have fully participated in the care of the patient.: Yes I have reviewed all pertinent clinical information, including history, physical exam and plan: Yes Notes (Text): Pt is clinically improving AXR in am Advance diet to liquid diet Plan d.w pt in detail.
[2018-07-15] MEDS: Enoxaparin 30 mg Syringe SC SCH ×2 (12:30→21:14)
[2018-07-15] MEDS ORDERED: PPN #7 IV ONE (18:00)
[2018-07-16] MEDS: Piperacill/Tazo 3.375gm in Dex 3.375 GM/50 ML BAG IVPB SCH ×4 (02:58→22:00)
[2018-07-16] MEDS: metroNIDAZOLE IV 500 mg/100 ml 500 MG/100 ML BAG IVPB SCH ×3 (03:30→20:54)
[2018-07-16] MEDS ORDERED: PPN #8 IV ONE (06:10)
[2018-07-16] MEDS: Levothyroxine 175 MCG TAB PO SCH (06:24)
[2018-07-16 06:50] LABS: BASO % 0.6 % (0.0-2.0); EOS # 0.1 K/uL (0.0-0.7); EOS % 1.2 % (0.0-4.0); HEMOGLOBIN 9.2 g/dL (11.0-16.0); LYMPH # 1.2 K/uL (1.0-4.3); LYMPH % 21.4 % (20.0-40.0); MEAN CELL VOLUME 90.8 fL (81.0-99.0); MEAN CORPUSCULAR HEMOGLOBIN 31.3 pg (27.0-31.0); MEAN CORPUSCULAR HGB CONC 34.4 g/dL (33.0-37.0); MEAN PLATELET VOLUME 7.8 fL (7.2-11.7); MONO # 0.4 K/uL (0.0-0.8); MONO % 7.2 % (0.0-10.0); NEUT % 69.6 % (50.0-75.0); RBC 2.95 Mil/uL (3.80-5.20); RED CELL DISTRIBUTION WIDTH 17.4 % (11.5-14.5); WHITE BLOOD COUNT 5.8 K/uL (4.8-10.8)
[2018-07-16 07:01] LABS: ALB/GLOB RATIO 1.1 (1.0-2.1); ALBUMIN 2.8 g/dL (3.5-5.0); ALT/SGPT 20 U/L (9-52); AST/SGOT 17 U/L (14-36); BLOOD UREA NITROGEN 12 mg/dL (7-17); CALCIUM 7.8 mg/dl (8.6-10.4); GFR NON-AFRICAN AMERICAN > 60
[2018-07-16] MEDS: Enoxaparin 30 mg Syringe SC SCH ×2 (09:19→21:59)
--- NOTE | 2018-07-16 11:08 | CP.PCM.PN ---
<Esperanza Muñoz - Last Filed: 07/16/18 17:28> Subjective - Date & Time of Evaluation Date of Evaluation: 07/16/18 Time of Evaluation: 07:55 - Subjective Subjective: surgery progress note for Dr. Robins Patient examined at bedside. No acute events overnight. Patient reports she is feeling better, has been ambulating, tolerating liquid diet, passed flatus, had loose bowel movements. Patient reports pain is well controlled with new pain medication (toradol), and nausea improved since d/c-ing morphine. Denies chest pain, SOB, vomiting. Objective - Vital Signs/Intake and Output Vital Signs (last 24 hours): Temp Pulse Resp BP Pulse Ox 98.5 F 95 H 20 101/74 98 07/16/18 08:18 07/16/18 08:18 07/16/18 08:18 07/16/18 08:18 07/16/18 08:18 Intake and Output: 07/16/18 07/16/18 06:59 18:59 Intake Total 1795 Balance 1795 - Medications Medications: Current Medications Benzocaine/Menthol (Cepacol Sore Throat) 1 nyasia MT Q1H PRN PRN Reason: Sore Throat Last Admin: 07/14/18 18:01 Dose: 1 nyasia Enoxaparin Sodium (Lovenox) 30 mg SC Q12 [facility] Last Admin: 07/16/18 09:19 Dose: 30 mg Metronidazole (Flagyl) 500 mg in 100 mls @ 100 mls/hr IVPB Q8H [facility]; Protocol Last Admin: 07/16/18 03:30 Dose: 100 mls/hr Piperacillin Sod/Tazobactam Sod (Zosyn 3.375 Gm Iv Premix) 3.375 gm in 50 mls @ 100 mls/hr IVPB Q6H [facility]; Protocol Last Admin: 07/16/18 09:18 Dose: 100 mls/hr Amino Acids (Clinimix 4.25/5 % "E" (1000 Ml)) 1,000 mls @ 83 mls/hr IV .Q12H3M [facility] Stop: 07/16/18 18:12 Last Admin: 07/16/18 05:45 Dose: 83 mls/hr Chromium/Copper/Manganese/Zinc 1 ml/ Multivitamins/Vitamin C 10 ml/ Amino Acids 1,011 mls @ 83 mls/hr IV .[id number] [facility] Stop: 07/17/18 06:10 Amino Acids (Clinimix 4.25/5 % "E" (1000 Ml)) 1,000 mls @ 83 mls/hr IV .Q12H3M [facility] Stop: 07/17/18 17:59 Ketorolac Tromethamine (Toradol) 15 mg IVP Q6 [facility] Last Admin: 07/16/18 06:21 Dose: 15 mg Levothyroxine Sodium (Synthroid) 175 mcg PO DAILY@0630 [facility] Last Admin: 07/16/18 06:24 Dose: 175 mcg Metoclopramide HCl (Reglan) 10 mg IVP ACHS [facility] Last Admin: 07/16/18 09:18 Dose: 10 mg Pantoprazole Sodium (Protonix Inj) 40 mg IVP DAILY [facility] Last Admin: 07/16/18 09:18 Dose: 40 mg Tramadol HCl (Ultram) 25 mg PO TID PRN PRN Reason: Pain, moderate (4-7) Zolpidem Tartrate (Ambien) 5 mg PO HS PRN PRN Reason: Insomnia - Labs Labs: 07/16/18 06:39 07/16/18 06:39 PT 14.8 SECONDS (9.7-12.2) H D 07/15/18 07:28 INR 1.4 D 07/15/18 07:28 APTT 39 SECONDS (21-34) H 07/09/18 11:31 - Constitutional Appears: Non-toxic, No Acute Distress - Head Exam Head Exam: ATRAUMATIC, NORMAL INSPECTION, NORMOCEPHALIC - Eye Exam Eye Exam: EOMI, Normal appearance - ENT Exam ENT Exam: Mucous Membranes Moist, Normal Exam - Respiratory Exam Respiratory Exam: Clear to Ausculation Bilateral, NORMAL BREATHING PATTERN - Cardiovascular Exam Cardiovascular Exam: REGULAR RHYTHM. absent: Tachycardia - GI/Abdominal Exam GI & Abdominal Exam: Soft, Tenderness (suprapubic tenderness), Normal Bowel Soun ds - Extremities Exam Extremities Exam: Normal Inspection. absent: Calf Tenderness, Pedal Edema - Neurological Exam Neurological Exam: Alert, Awake, Oriented x3 - Psychiatric Exam Psychiatric exam: Normal Affect, Normal Mood - Skin Skin Exam: Dry, Intact, Normal Color, Warm Assessment and Plan - Assessment and Plan (Free Text) Assessment: 33 year old female admitted with SBO Plan: -tolerating NGT out -pureed diet -f/u abd xray -monitor bowel function, improving;+flatus/BM -encourage ambulation -pain medication prn -IV antibiotics Discussed with Dr. Shimon Muñoz, PGY-1 <Landon Robins - Last Filed: 07/21/18 15:25> Objective - Vital Signs/Intake and Output Vital Signs (last 24 hours): Temp Pulse Resp BP Pulse Ox 98.6 F 80 18 114/80 98 07/21/18 07:55 07/21/18 07:55 07/21/18 07:55 07/21/18 07:55 07/21/18 07:55 Intake and Output: 07/21/18 07/21/18 06:59 18:59 Intake Total 200 Balance 200 - Medications Medications: Current Medications Acetaminophen (Tylenol 325mg Tab) 650 mg PO Q6 PRN PRN Reason: Headache Benzocaine/Menthol (Cepacol Sore Throat) 1 nyasia MT Q1H PRN PRN Reason: Sore Throat Last Admin: 07/14/18 18:01 Dose: 1 nyasia Enoxaparin Sodium (Lovenox) 30 mg SC Q12 [facility] Last Admin: 07/21/18 09:04 Dose: 30 mg Levothyroxine Sodium (Synthroid) 175 mcg PO DAILY@0630 [facility] Last Admin: 07/21/18 05:33 Dose: 175 mcg Metoclopramide HCl (Reglan) 10 mg PO ACHS [facility] Last Admin: 07/21/18 12:26 Dose: 10 mg Oxycodone/Acetaminophen (Percocet 5/325 Mg Tab) 1 tab PO Q6H PRN PRN Reason: Pain, severe (8-10) Stop: 07/23/18 20:38 Pantoprazole Sodium (Protonix Ec Tab) 40 mg PO DAILY [facility] Last Admin: 07/21/18 09:05 Dose: 40 mg Tramadol HCl (Ultram) 25 mg PO TID PRN PRN Reason: Pain, moderate (4-7) Last Admin: 07/20/18 20:16 Dose: 25 mg Zolpidem Tartrate (Ambien) 5 mg PO HS PRN PRN Reason: Insomnia Last Admin: 07/16/18 21:59 Dose: 5 mg - Labs Labs: 07/21/18 08:03 07/21/18 08:03 PT 13.9 SECONDS (9.7-12.2) H 07/17/18 07:41 INR 1.3 07/17/18 07:41 APTT 39 SECONDS (21-34) H 07/09/18 11:31 Attending/Attestation - Attestation I have personally seen and examined this patient.: Yes I have fully participated in the care of the patient.: Yes I have reviewed all pertinent clinical information, including history, physical exam and plan: Yes Notes (Text): Pt was seen and examined at bedside Agree with above note and assessment Pt is improving clinically OOB to walk Advance diet as tolerated Plan d.w pt in detail Risk and benefit explained in detail.
--- NOTE | 2018-07-16 15:39 | RAD ---
Date of service: 07/16/2018 HISTORY: eval SBO COMPARISON: Comparison made with abdominal radiographs dated 07/14/2018 FINDINGS: Interval removal NGT BOWEL: Multiple mildly distended distended air-filled loops of small bowel again noted. BONES: Normal. OTHER FINDINGS: None. IMPRESSION: Multiple mildly distended air-filled loops of small bowel again noted.
[2018-07-16] MEDS ORDERED: PPN#9 IV ONE (18:00)
[2018-07-17] MEDS: Piperacill/Tazo 3.375gm in Dex 3.375 GM/50 ML BAG IVPB SCH ×2 (02:40→08:35)
[2018-07-17] MEDS: metroNIDAZOLE IV 500 mg/100 ml 500 MG/100 ML BAG IVPB SCH (03:40)
[2018-07-17] MEDS: Levothyroxine 175 MCG TAB PO SCH (06:00)
[2018-07-17] MEDS ORDERED: PPN#10 IV SCH (06:11)
[2018-07-17 07:51] LABS: EOS # 0.1 K/uL (0.0-0.7); EOS % 2.3 % (0.0-4.0); HEMOGLOBIN 9.1 g/dL (11.0-16.0); LYMPH # 1.7 K/uL (1.0-4.3); LYMPH % 36.8 % (20.0-40.0); MEAN CELL VOLUME 90.1 fL (81.0-99.0); MEAN CORPUSCULAR HEMOGLOBIN 31.1 pg (27.0-31.0); MEAN CORPUSCULAR HGB CONC 34.5 g/dL (33.0-37.0); MEAN PLATELET VOLUME 7.8 fL (7.2-11.7); MONO # 0.7 K/uL (0.0-0.8); MONO % 14.4 % (0.0-10.0); NEUT # 2.1 K/uL (1.8-7.0); NEUT % 45.5 % (50.0-75.0); NRBC % 0.1 % (0.0-2.0); RBC 2.94 Mil/uL (3.80-5.20); RED CELL DISTRIBUTION WIDTH 17.6 % (11.5-14.5); WHITE BLOOD COUNT 4.5 K/uL (4.8-10.8)
[2018-07-17 07:55] LABS: INR 1.3; PROTHROMBIN TIME 13.9 SECONDS (9.7-12.2)
[2018-07-17 08:31] LABS: ALBUMIN 2.9 g/dL (3.5-5.0); ALT/SGPT 20 U/L (9-52); AST/SGOT 32 U/L (14-36); BLOOD UREA NITROGEN 12 mg/dL (7-17); CALCIUM 8.2 mg/dl (8.6-10.4); GFR NON-AFRICAN AMERICAN > 60
[2018-07-17] MEDS: Enoxaparin 30 mg Syringe SC SCH ×2 (10:40→22:14)
--- NOTE | 2018-07-17 12:41 | CP.PCM.PN ---
<Esperanza Muñoz - Last Filed: 07/17/18 13:05> Subjective - Date & Time of Evaluation Date of Evaluation: 07/17/18 Time of Evaluation: 06:50 - Subjective Subjective: surgery progress note for Dr. Robins Patient examined at bedside. No acute events overnight. Patient reports she is tolerating pureed diet, ambulating, voiding, passing flatus, having more formed BMs, and improvement in abdominal pain. Denies chest pain, SOB, nausea, vomiting, constipation. Objective - Vital Signs/Intake and Output Vital Signs (last 24 hours): Temp Pulse Resp BP Pulse Ox 98.3 F 100 H 20 94/59 L 97 07/17/18 07:17 07/17/18 07:17 07/17/18 07:17 07/17/18 07:17 07/17/18 07:17 - Medications Medications: Current Medications Barium Sulfate (Volumen 450 Ml) 0 ml PO ONCE ONE Stop: 07/17/18 17:01 Benzocaine/Menthol (Cepacol Sore Throat) 1 nyasia MT Q1H PRN PRN Reason: Sore Throat Last Admin: 07/14/18 18:01 Dose: 1 nyasia Enoxaparin Sodium (Lovenox) 30 mg SC Q12 [facility] Last Admin: 07/17/18 10:40 Dose: 30 mg Amino Acids (Clinimix 4.25/5 % "E" (1000 Ml)) 1,000 mls @ 83 mls/hr IV .Q12H3M [facility] Stop: 07/17/18 17:59 Last Admin: 07/17/18 05:59 Dose: Not Given Chromium/Copper/Manganese/Zinc 1 ml/ Multivitamins/Vitamin C 10 ml/ Amino Acids 1,011 mls @ 83 mls/hr IV .[id number] [facility] Stop: 07/18/18 06:10 Amino Acids (Clinimix 4.25/5 % "E" (1000 Ml)) 1,000 mls @ 83 mls/hr IV .Q12H3M [facility] Stop: 07/18/18 17:59 Ketorolac Tromethamine (Toradol) 15 mg IVP Q6 [facility] Last Admin: 07/17/18 11:37 Dose: Not Given Levothyroxine Sodium (Synthroid) 175 mcg PO DAILY@0630 [facility] Last Admin: 07/17/18 06:00 Dose: 175 mcg Metoclopramide HCl (Reglan) 10 mg IVP ACHS [facility] Last Admin: 07/17/18 11:36 Dose: Not Given Pantoprazole Sodium (Protonix Inj) 40 mg IVP DAILY [facility] Last Admin: 07/17/18 10:40 Dose: 40 mg Tramadol HCl (Ultram) 25 mg PO TID PRN PRN Reason: Pain, moderate (4-7) Zolpidem Tartrate (Ambien) 5 mg PO HS PRN PRN Reason: Insomnia Last Admin: 07/16/18 21:59 Dose: 5 mg - Labs Labs: 07/17/18 07:41 07/17/18 07:41 PT 13.9 SECONDS (9.7-12.2) H 07/17/18 07:41 INR 1.3 07/17/18 07:41 APTT 39 SECONDS (21-34) H 07/09/18 11:31 - Constitutional Appears: Non-toxic, No Acute Distress - Head Exam Head Exam: ATRAUMATIC, NORMAL INSPECTION, NORMOCEPHALIC - Eye Exam Eye Exam: EOMI, Normal appearance - ENT Exam ENT Exam: Mucous Membranes Moist, Normal Exam - Neck Exam Neck Exam: Normal Inspection - Respiratory Exam Respiratory Exam: NORMAL BREATHING PATTERN. absent: Respiratory Distress - Cardiovascular Exam Cardiovascular Exam: REGULAR RHYTHM. absent: Tachycardia - GI/Abdominal Exam GI & Abdominal Exam: Soft, Tenderness (subumbilical tenderness to palpation sharmin-incisionally.). absent: Distended - Extremities Exam Extremities Exam: absent: Calf Tenderness, Pedal Edema Additional comments: RUE Mid line - Neurological Exam Neurological Exam: Alert, Awake, Oriented x3 - Psychiatric Exam Psychiatric exam: Normal Affect, Normal Mood - Skin Skin Exam: Dry, Intact, Normal Color, Warm Assessment and Plan - Assessment and Plan (Free Text) Assessment: 33 year old female admitted with SBO, s/p subtotal colectomy 06/11/18 for chronic constipation Plan: -advance diet to soft -f/u CT enterography -f/u hepatic US duplex to evaluate portal vein thrombosis discovered in early June -GI consult, Dr. Cummings, to evaluate dysmotility -encourage ambulation -d/c IV Abx, no longer indicated -pain medication PRN, toradol -DVT ppx, lovenox -GI ppx, protonix Discussed with Dr. Shimon Muñoz, PGY-1 <Landon Robins - Last Filed: 07/21/18 15:26> Objective - Vital Signs/Intake and Output Vital Signs (last 24 hours): Temp Pulse Resp BP Pulse Ox 98.6 F 80 18 114/80 98 07/21/18 07:55 07/21/18 07:55 07/21/18 07:55 07/21/18 07:55 07/21/18 07:55 Intake and Output: 07/21/18 07/21/18 06:59 18:59 Intake Total 200 Balance 200 - Medications Medications: Current Medications Acetaminophen (Tylenol 325mg Tab) 650 mg PO Q6 PRN PRN Reason: Headache Benzocaine/Menthol (Cepacol Sore Throat) 1 nyasia MT Q1H PRN PRN Reason: Sore Throat Last Admin: 07/14/18 18:01 Dose: 1 nyasia Enoxaparin Sodium (Lovenox) 30 mg SC Q12 [facility] Last Admin: 07/21/18 09:04 Dose: 30 mg Levothyroxine Sodium (Synthroid) 175 mcg PO DAILY@0630 [facility] Last Admin: 07/21/18 05:33 Dose: 175 mcg Metoclopramide HCl (Reglan) 10 mg PO ACHS [facility] Last Admin: 07/21/18 12:26 Dose: 10 mg Oxycodone/Acetaminophen (Percocet 5/325 Mg Tab) 1 tab PO Q6H PRN PRN Reason: Pain, severe (8-10) Stop: 07/23/18 20:38 Pantoprazole Sodium (Protonix Ec Tab) 40 mg PO DAILY [facility] Last Admin: 07/21/18 09:05 Dose: 40 mg Tramadol HCl (Ultram) 25 mg PO TID PRN PRN Reason: Pain, moderate (4-7) Last Admin: 07/20/18 20:16 Dose: 25 mg Zolpidem Tartrate (Ambien) 5 mg PO HS PRN PRN Reason: Insomnia Last Admin: 07/16/18 21:59 Dose: 5 mg - Labs Labs: 07/21/18 08:03 07/21/18 08:03 PT 13.9 SECONDS (9.7-12.2) H 07/17/18 07:41 INR 1.3 07/17/18 07:41 APTT 39 SECONDS (21-34) H 07/09/18 11:31 Attending/Attestation - Attestation I have personally seen and examined this patient.: Yes I have fully participated in the care of the patient.: Yes I have reviewed all pertinent clinical information, including history, physical exam and plan: Yes Notes (Text): Pt was seen and examined at bedside Agree with above note and assessment Pt is improving clinically CT enterography GI consult Reg diet Plan d.w pt in detail Risk and benefit explained in detail.
--- NOTE | 2018-07-17 13:50 | CP.PCM.CON ---
<Erik Najera - Last Filed: 07/17/18 15:35> History of Present Illness - History of Present Illness History of Present Illness: GI Fellow PGY4, Consult note. 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 She was found to have SBO and NG tube placed. Unfortunately, patient's symptoms did not improve rapidly and had been started on PPN. She is now tolerating puree diet and having BMs. She complains of moderate abdominal pain in lower abdomen. We were consulted for Chronic dysmotility and SBO. EGD 09/[address] Brand for suspected achalasia s/p balloon dilation with 30mm and PSI 20. Family History- denies stomach cnacer, colon cancer Social History- denies tobacco, alcohol, or illicit drug use Surgical History- left sigmoidectomy 05/2017. Subtotal colectomy 06/11/18 12pt ROS completed and negative except for above. Past Patient History - Infectious Disease Hx of Infectious Diseases: None - Past Medical History & Family History Past Medical History?: Yes Past Family History: Reviewed and not pertinent - Past Social History Smoking Status: Never Smoked - NEUROLOGICAL Hx Migraine: Yes - ENDOCRINE/METABOLIC Hx Hyperthyroidism: Yes Hx Hypothyroidism: Yes - HEMATOLOGICAL/ONCOLOGICAL Hx Blood Transfusions: Yes Other/Comment: R and L Portal vein thrombosis - MUSCULOSKELETAL/RHEUMATOLOGICAL Hx Falls: No - GASTROINTESTINAL Hx Gastrointestinal Disorders: Yes Hx Bowel Surgery: Yes (PARTIAL COLECTOMY) Hx Constipation: Yes Other/Comment: CHAGAS SYNDROME, ACHALASIA - PSYCHIATRIC Hx Substance Use: No - SURGICAL HISTORY Hx Surgeries: Yes Other/Comment: subtotal colectomy with ileorectal anastamosis 06/2018, sigmoidectomy prior - ANESTHESIA Hx Anesthesia: Yes Hx Anesthesia Reactions: No Hx Malignant Hyperthermia: No Meds Allergies/Adverse Reactions: Allergies Allergy/AdvReac Type Severity Reaction Status Date / Time No Known Allergies Allergy Verified 07/09/18 10:55 - Medications Medications: Current Medications Barium Sulfate (Volumen 450 Ml) 0 ml PO ONCE ONE Stop: 07/17/18 17:01 Benzocaine/Menthol (Cepacol Sore Throat) 1 nyasia MT Q1H PRN PRN Reason: Sore Throat Last Admin: 07/14/18 18:01 Dose: 1 nyasia Enoxaparin Sodium (Lovenox) 30 mg SC Q12 [facility] Last Admin: 07/17/18 10:40 Dose: 30 mg Amino Acids (Clinimix 4.25/5 % "E" (1000 Ml)) 1,000 mls @ 83 mls/hr IV .Q12H3M [facility] Stop: 07/17/18 17:59 Last Admin: 07/17/18 05:59 Dose: Not Given Chromium/Copper/Manganese/Zinc 1 ml/ Multivitamins/Vitamin C 10 ml/ Amino Acids 1,011 mls @ 83 mls/hr IV .[id number] ONE Stop: 07/18/18 06:10 Amino Acids (Clinimix 4.25/5 % "E" (1000 Ml)) 1,000 mls @ 83 mls/hr IV .Q12H3M [facility] Stop: 07/18/18 17:59 Ketorolac Tromethamine (Toradol) 15 mg IVP Q6 [facility] Last Admin: 07/17/18 11:37 Dose: Not Given Levothyroxine Sodium (Synthroid) 175 mcg PO DAILY@0630 [facility] Last Admin: 07/17/18 06:00 Dose: 175 mcg Metoclopramide HCl (Reglan) 10 mg IVP ACHS [facility] Last Admin: 07/17/18 11:36 Dose: Not Given Pantoprazole Sodium (Protonix Inj) 40 mg IVP DAILY [facility] Last Admin: 07/17/18 10:40 Dose: 40 mg Tramadol HCl (Ultram) 25 mg PO TID PRN PRN Reason: Pain, moderate (4-7) Zolpidem Tartrate (Ambien) 5 mg PO HS PRN PRN Reason: Insomnia Last Admin: 07/16/18 21:59 Dose: 5 mg Physical Exam - Constitutional Appears: Non-toxic, No Acute Distress - Head Exam Head Exam: NORMAL INSPECTION, NORMOCEPHALIC - Eye Exam Eye Exam: EOMI, Normal appearance - ENT Exam ENT Exam: Mucous Membranes Moist - Respiratory Exam Respiratory Exam: Clear to Auscultation Bilateral, NORMAL BREATHING PATTERN - Cardiovascular Exam Cardiovascular Exam: REGULAR RHYTHM, +S1, +S2 - GI/Abdominal Exam GI & Abdominal Exam: Normal Bowel Sounds, Soft, Tenderness. absent: Organomegaly Additional comments: Surgical changes present. clean, dry. No infections. - Extremities Exam Extremities exam: Positive for: full ROM, normal inspection - Neurological Exam Neurological exam: Alert, CN II-XII Intact, Oriented x3 - Psychiatric Exam Psychiatric exam: Normal Affect, Normal Mood - Skin Skin Exam: Dry, Normal Color Results - Vital Signs Recent Vital Signs: Last Vital Signs Temp 98.3 F 07/17/18 07:17 Pulse 100 H 07/17/18 07:17 Resp 20 07/17/18 07:17 BP 94/59 L 07/17/18 07:17 Pulse Ox 97 07/17/18 07:17 - Labs Result Diagrams: 07/17/18 07:41 07/17/18 07:41 Labs: Laboratory Results - last 24 hr 07/17/18 07/17/18 07/17/18 07:41 07:41 07:41 WBC 4.5 L RBC 2.94 L Hgb 9.1 L Hct 26.5 L MCV 90.1 MCH 31.1 H MCHC 34.5 RDW 17.6 H Plt Count 386 MPV 7.8 Neut % (Auto) 45.5 L Lymph % (Auto) 36.8 Newton % (Auto) 14.4 H Eos % (Auto) 2.3 Baso % (Auto) 1.0 Neut # (Auto) 2.1 Lymph # (Auto) 1.7 Newton # (Auto) 0.7 Eos # (Auto) 0.1 Baso # (Auto) 0.0 PT 13.9 H INR 1.3 Sodium 135 Potassium 3.7 Chloride 102 Carbon Dioxide 24 Anion Gap 13 BUN 12 Creatinine 0.5 L Est GFR ( Amer) > 60 Est GFR (Non-Af Amer) > 60 Random Glucose 84 Calcium 8.2 L Phosphorus 3.4 Magnesium 1.9 Total Bilirubin 0.3 AST 32 ALT 20 Alkaline Phosphatase 45 Total Protein 5.7 L Albumin 2.9 L Globulin 2.9 Albumin/Globulin Ratio 1.0 Assessment & Plan - Assessment and Plan (Free Text) Assessment: #SBO/Ileus #Colonic atonia - left sigmoidectomy 05/2017. Subtotal colectomy 06/11/18 #Portal vein thrombosis #Suspected achalasia - s/p balloon dilation 09/28 #Anemia, likely from chronic disease PLAN: -CT, Labs and previous reports reviewed. -Overall, appears to be improving -Continue diet per surgery -We will follow up CT and US studies. -Recommend outpatient w/u of cause of recurrent abdominal symptoms, possible capsule endoscopy. -Given her background, the achalasia and colonic problems, we will consider Chagas and further w/u. - Date & Time Date: 07/17/18 Time: 14:19 <Kedar Cummings Y - Last Filed: 07/17/18 15:57> Meds - Medications Medications: Current Medications Barium Sulfate (Volumen 450 Ml) 0 ml PO ONCE ONE Stop: 07/17/18 17:01 Benzocaine/Menthol (Cepacol Sore Throat) 1 nyasia MT Q1H PRN PRN Reason: Sore Throat Last Admin: 07/14/18 18:01 Dose: 1 nyasia Enoxaparin Sodium (Lovenox) 30 mg SC Q12 [facility] Last Admin: 07/17/18 10:40 Dose: 30 mg Amino Acids (Clinimix 4.25/5 % "E" (1000 Ml)) 1,000 mls @ 83 mls/hr IV .Q12H3M [facility] Stop: 07/17/18 17:59 Last Admin: 07/17/18 05:59 Dose: Not Given Chromium/Copper/Manganese/Zinc 1 ml/ Multivitamins/Vitamin C 10 ml/ Amino Acids 1,011 mls @ 83 mls/hr IV .[id number] ONE Stop: 07/18/18 06:10 Amino Acids (Clinimix 4.25/5 % "E" (1000 Ml)) 1,000 mls @ 83 mls/hr IV .Q12H3M [facility] Stop: 07/18/18 17:59 Ketorolac Tromethamine (Toradol) 15 mg IVP Q6 [facility] Last Admin: 07/17/18 11:37 Dose: Not Given Levothyroxine Sodium (Synthroid) 175 mcg PO DAILY@0630 [facility] Last Admin: 07/17/18 06:00 Dose: 175 mcg Metoclopramide HCl (Reglan) 10 mg IVP ACHS [facility] Last Admin: 07/17/18 11:36 Dose: Not Given Pantoprazole Sodium (Protonix Inj) 40 mg IVP DAILY [facility] Last Admin: 07/17/18 10:40 Dose: 40 mg Tramadol HCl (Ultram) 25 mg PO TID PRN PRN Reason: Pain, moderate (4-7) Zolpidem Tartrate (Ambien) 5 mg PO HS PRN PRN Reason: Insomnia Last Admin: 07/16/18 21:59 Dose: 5 mg Results - Vital Signs Recent Vital Signs: Last Vital Signs Temp 98.3 F 07/17/18 07:17 Pulse 100 H 07/17/18 07:17 Resp 20 07/17/18 07:17 BP 94/59 L 07/17/18 07:17 Pulse Ox 97 07/17/18 07:17 - Labs Result Diagrams: 07/17/18 07:41 07/17/18 07:41 Labs: Laboratory Results - last 24 hr 07/17/18 07/17/18 07/17/18 07:41 07:41 07:41 WBC 4.5 L RBC 2.94 L Hgb 9.1 L Hct 26.5 L MCV 90.1 MCH 31.1 H MCHC 34.5 RDW 17.6 H Plt Count 386 MPV 7.8 Neut % (Auto) 45.5 L Lymph % (Auto) 36.8 Newton % (Auto) 14.4 H Eos % (Auto) 2.3 Baso % (Auto) 1.0 Neut # (Auto) 2.1 Lymph # (Auto) 1.7 Newton # (Auto) 0.7 Eos # (Auto) 0.1 Baso # (Auto) 0.0 PT 13.9 H INR 1.3 Sodium 135 Potassium 3.7 Chloride 102 Carbon Dioxide 24 Anion Gap 13 BUN 12 Creatinine 0.5 L Est GFR ( Amer) > 60 Est GFR (Non-Af Amer) > 60 Random Glucose 84 Calcium 8.2 L Phosphorus 3.4 Magnesium 1.9 Total Bilirubin 0.3 AST 32 ALT 20 Alkaline Phosphatase 45 Total Protein 5.7 L Albumin 2.9 L Globulin 2.9 Albumin/Globulin Ratio 1.0 Attending/Attestation - Attestation I have personally seen and examined this patient.: Yes I have fully participated in the care of the patient.: Yes I have reviewed all pertinent clinical information: Yes Notes (Text): 07/17/18 15:53 I have seen and examined patient with GI fellow. Agree with above documentation with the following additions. In brief, this is a 33 year old female with history of achalasia, PVT, colonic atonia s/p subtotal colectomy who presented to hospital with complaint of abdominal pain and vomiting. She was found to have small bowel obstruction and underwent supportive care for the past few days with resolution of symptoms. She is seen currently sitting in chair, appears comfortable. She reports ongoing nausea and mild epigastric abdominal pain, though she was able to tolerate PO diet for breakfast and had a subsequent bowel movement. She denies fever/chills, weight loss, rectal bleeding. Achalasia PVT Colonic atonia s/p subtotal colectomy Abdominal pain, small bowel obstruction - resolving - Diet as tolerated - Patient underwent CT enterography today, await results - Pro-motility therapy as per medical team - Patient would benefit from additional outpatient evaluation with consideration of capsule study and Chagas workup given clinical scenario - No further planned GI intervention at this time, will sign off case. Please reconsult as necessary, thank you.
[2018-07-17] MEDS ORDERED: Iodixanol 320 MG/ML 100 ML BOTTLE IV ONE (14:40)
--- NOTE | 2018-07-17 15:25 | US ---
Date of service: 07/17/2018 HISTORY: s/p portal vein thrombosis COMPARISON: None. TECHNIQUE: Sonographic evaluation of the right upper quadrant of the abdomen. FINDINGS: LIVER: Measures 16.7 cm in length. Diffusely increased echogenicity of the liver parenchyma. Consistent with fatty infiltration. Smooth contour. Rounded echogenic mass in the dome of the liver, 1.9 x 2.0 x 2.1 cm, consistent with previously demonstrated hemangioma on CT examination. Second smaller echogenic mass in the superior right hepatic lobe, 0.8 x 1.0 x 1.0 cm. No corresponding mass is demonstrated on CT examination. No evidence of portal venous thrombosis. Normal hepatopetal portal venous flow is demonstrated. Flow demonstrated in the right, middle and left hepatic veins. GALLBLADDER: Unremarkable. No gallstones. COMMON BILE DUCT: Measures 3 mm. No stones. No dilatation. PANCREAS: Unremarkable as visualized. No mass. No ductal dilatation. RIGHT KIDNEY: Measures 9.5 cm in length. Normal echogenicity. No calculus, mass, or hydronephrosis. AORTA: No aneurysmal dilatation. IVC: Unremarkable. OTHER FINDINGS: None . IMPRESSION: No evidence of portal venous thrombosis. Fatty infiltration of the liver. Two echogenic hepatic masses, nonspecific. Possible hemangiomas.
[2018-07-17] MEDS ORDERED: Barium Sulfate Susp 0.1% w/v, 0.1% w/w 450 mL Bottle PO ONE (17:00)
[2018-07-17] MEDS ORDERED: PPN#11 IV ONE (18:00)
[2018-07-18] MEDS: Levothyroxine 175 MCG TAB PO SCH (05:58)
[2018-07-18] MEDS ORDERED: PPN#12 IV SCH (06:11)
[2018-07-18 07:35] LABS: BASO % 0.9 % (0.0-2.0); EOS # 0.1 K/uL (0.0-0.7); EOS % 1.5 % (0.0-4.0); HEMOGLOBIN 9.6 g/dL (11.0-16.0); LYMPH % 38.1 % (20.0-40.0); MEAN CELL VOLUME 89.9 fL (81.0-99.0); MEAN CORPUSCULAR HEMOGLOBIN 30.7 pg (27.0-31.0); MEAN CORPUSCULAR HGB CONC 34.1 g/dL (33.0-37.0); MEAN PLATELET VOLUME 7.9 fL (7.2-11.7); MONO # 0.7 K/uL (0.0-0.8); MONO % 13.3 % (0.0-10.0); NEUT # 2.4 K/uL (1.8-7.0); NEUT % 46.2 % (50.0-75.0); NRBC % 0.1 % (0.0-2.0); RBC 3.12 Mil/uL (3.80-5.20); RED CELL DISTRIBUTION WIDTH 17.7 % (11.5-14.5); WHITE BLOOD COUNT 5.2 K/uL (4.8-10.8)
[2018-07-18 07:42] LABS: ALBUMIN 3.1 g/dL (3.5-5.0); ALT/SGPT 24 U/L (9-52); AST/SGOT 34 U/L (14-36); BLOOD UREA NITROGEN 12 mg/dL (7-17); CALCIUM 8.4 mg/dl (8.6-10.4); GFR NON-AFRICAN AMERICAN > 60
[2018-07-18] MEDS: Enoxaparin 30 mg Syringe SC SCH ×2 (10:05→21:56)
--- NOTE | 2018-07-18 11:24 | CT ---
Date of service: 07/17/2018 PROCEDURE: CT Abdomen and Pelvis with contrast HISTORY: chronic dysmotility/SBO COMPARISON: Abdomen and pelvis CT with contrast 06/19/2018. TECHNIQUE: Following the intravenous administration of iodinated contrast material, a CT examination of the abdomen and pelvis performed from the domes of the diaphragms to the symphysis pubis with reformatted datasets provided in axial, sagittal and coronal planes. Volumen in oral contrast was administered within [address] for evaluation of small-bowel and 2 time dependent axial series were obtained following intravenous contrast administration. Coronal and sagittal reformats were generated. Contrast dose: Visipaque 320, 100 cc Radiation dose: Total exam DLP = 769.09 mGy-cm. This CT exam was performed using one or more of the following dose reduction techniques: Automated exposure control, adjustment of the mA and/or kV according to patient size, and/or use of iterative reconstruction technique. FINDINGS: LOWER THORAX: Unremarkable. LIVER: A stable lucency seen at the dome of the liver toward the right measuring 1.7 x 2.2 cm potentially reflecting a benign hemangioma unchanged in size compared to prior CT 04/27/2016. GALLBLADDER AND BILE DUCTS: Unremarkable. PANCREAS: Unremarkable. No gross lesion or ductal dilatation. SPLEEN: Unremarkable. ADRENALS: Unremarkable. No mass. KIDNEYS AND URETERS: Unremarkable. No hydronephrosis. No solid mass. VASCULATURE: Unremarkable. No aortic aneurysm. No aortic atherosclerotic calcification or mural plaque present. BOWEL: The stomach, small large bowel are filled with oral contrast material with the stomach diffusely unremarkable appearing throughout. Evaluation of the small bowel is somewhat compromised by 30 sec delay contrast series appearing later than the normal arterial phase of enhancement. The portal vein is enhancing in this series. No suspicious contrast enhancement is appreciated or abnormal mural thickening throughout the small bowel. Normal fold pattern is seen from proximal to distal small bowel and there are some dilated small-bowel loops in the lower abdomen however the lumen is specifically designed to distend bowel. The overall appearance of the bowel is significantly smaller than previously shown in CT 07/09/2018 and there is no evidence to suggest small bowel obstruction at this time. Large bowel is mildly distended as well. No local mesenteric reaction. Patient appears to be status post subtotal colectomy with anastomotic suture line at the level of the distal descending colon appearing unremarkable appear 2nd suture line is seen at the proximal rectosigmoid and also appears nonfocal grossly. Limited thickening of the posterior rectum is in question. APPENDIX: Subtotal colectomy. PERITONEUM: Unremarkable. No free fluid. No free air. LYMPH NODES: Unremarkable. No enlarged lymph nodes. BLADDER: Poorly evaluated due to significant decompression. No radiodense urolithiasis in the lumen. No definite pericystic reactive change. REPRODUCTIVE: And flexed uterus. No suspicious adnexal findings. BONES: No acute fracture. OTHER FINDINGS: None. IMPRESSION: 1. No evidence to suggest small bowel obstruction. Overall distention of small-bowel is markedly reduced when compared to the prior CT 07/09/2018 and the variable distention of small bowel in this examination is not significantly greater than that that would be expected given volume and oral contrast administration. No suspicious small bowel fold pattern. Evaluation of enhancement is limited as initial enhancement series is arterial venous rather than arterial. 2. Subtotal colectomy with anastomotic suture lines identified unremarkable at the residual colon beginning at the distal descending colon region and also at the rectosigmoid. Limited thickening the posterior rectal wall is not excluded. Clinically correlate further. 3. Benign hemangioma hepatic dome reiterated.
[2018-07-18] MEDS: Pantoprazole 40 mg EC Tab PO SCH (14:44)
--- NOTE | 2018-07-18 16:14 | CP.PCM.PN ---
<TrentSoni - Last Filed: 07/18/18 16:11> Subjective - Date & Time of Evaluation Date of Evaluation: 07/18/18 Time of Evaluation: 16:12 - Subjective Subjective: Surgery: Dr. Robins Pt seen and examined. No acute overnight events. Pt states she feels well and has been able to tolerate soft diet. She is having small BMs and admits to flatus. Overall, feeling a lot better. Denies nausea/vomiting, fevers/chills. Objective - Vital Signs/Intake and Output Vital Signs (last 24 hours): Temp Pulse Resp BP Pulse Ox 98.2 F 68 20 105/63 95 07/18/18 08:00 07/18/18 08:00 07/18/18 08:00 07/18/18 08:00 07/18/18 08:00 Intake and Output: 07/18/18 07/18/18 06:59 18:59 Intake Total 750 Balance 750 - Medications Medications: Current Medications Benzocaine/Menthol (Cepacol Sore Throat) 1 nyasia MT Q1H PRN PRN Reason: Sore Throat Last Admin: 07/14/18 18:01 Dose: 1 nyasia Enoxaparin Sodium (Lovenox) 30 mg SC Q12 [facility] Last Admin: 07/18/18 10:05 Dose: 30 mg Amino Acids (Clinimix 4.25/5 % "E" (1000 Ml)) 1,000 mls @ 83 mls/hr IV .Q12H3M [facility] Stop: 07/18/18 17:59 Last Admin: 07/18/18 06:57 Dose: Not Given Levothyroxine Sodium (Synthroid) 175 mcg PO DAILY@0630 [facility] Last Admin: 07/18/18 05:58 Dose: 175 mcg Metoclopramide HCl (Reglan) 10 mg PO ACHS [facility] Pantoprazole Sodium (Protonix Ec Tab) 40 mg PO DAILY [facility] Last Admin: 07/18/18 14:44 Dose: 40 mg Tramadol HCl (Ultram) 25 mg PO TID PRN PRN Reason: Pain, moderate (4-7) Zolpidem Tartrate (Ambien) 5 mg PO HS PRN PRN Reason: Insomnia Last Admin: 07/16/18 21:59 Dose: 5 mg - Labs Labs: 07/18/18 07:18 07/18/18 07:18 PT 13.9 SECONDS (9.7-12.2) H 07/17/18 07:41 INR 1.3 07/17/18 07:41 APTT 39 SECONDS (21-34) H 07/09/18 11:31 - Constitutional Appears: Well, No Acute Distress - Head Exam Head Exam: ATRAUMATIC, NORMOCEPHALIC - Eye Exam Eye Exam: Normal appearance - ENT Exam ENT Exam: Mucous Membranes Moist - Respiratory Exam Respiratory Exam: NORMAL BREATHING PATTERN - Cardiovascular Exam Cardiovascular Exam: RRR - GI/Abdominal Exam GI & Abdominal Exam: Soft. absent: Distended, Tenderness - Neurological Exam Neurological Exam: Alert, Awake, Oriented x3 - Skin Skin Exam: Dry, Warm Assessment and Plan - Assessment and Plan (Free Text) Assessment: 33F s/p subtotal colectomy admitted for SBO; resolved Plan: - advance to regular diet - switch all meds to PO - plan for DC in AM - d/w Dr. Shimon Newman <Landon Robins B - Last Filed: 07/21/18 15:27> Objective - Vital Signs/Intake and Output Vital Signs (last 24 hours): Temp Pulse Resp BP Pulse Ox 98.6 F 80 18 114/80 98 07/21/18 07:55 07/21/18 07:55 07/21/18 07:55 07/21/18 07:55 07/21/18 07:55 Intake and Output: 07/21/18 07/21/18 06:59 18:59 Intake Total 200 Balance 200 - Medications Medications: Current Medications Acetaminophen (Tylenol 325mg Tab) 650 mg PO Q6 PRN PRN Reason: Headache Benzocaine/Menthol (Cepacol Sore Throat) 1 nyasia MT Q1H PRN PRN Reason: Sore Throat Last Admin: 07/14/18 18:01 Dose: 1 nyasia Enoxaparin Sodium (Lovenox) 30 mg SC Q12 [facility] Last Admin: 07/21/18 09:04 Dose: 30 mg Levothyroxine Sodium (Synthroid) 175 mcg PO DAILY@0630 [facility] Last Admin: 07/21/18 05:33 Dose: 175 mcg Metoclopramide HCl (Reglan) 10 mg PO ACHS [facility] Last Admin: 07/21/18 12:26 Dose: 10 mg Oxycodone/Acetaminophen (Percocet 5/325 Mg Tab) 1 tab PO Q6H PRN PRN Reason: Pain, severe (8-10) Stop: 07/23/18 20:38 Pantoprazole Sodium (Protonix Ec Tab) 40 mg PO DAILY [facility] Last Admin: 07/21/18 09:05 Dose: 40 mg Tramadol HCl (Ultram) 25 mg PO TID PRN PRN Reason: Pain, moderate (4-7) Last Admin: 07/20/18 20:16 Dose: 25 mg Zolpidem Tartrate (Ambien) 5 mg PO HS PRN PRN Reason: Insomnia Last Admin: 07/16/18 21:59 Dose: 5 mg - Labs Labs: 07/21/18 08:03 07/21/18 08:03 PT 13.9 SECONDS (9.7-12.2) H 07/17/18 07:41 INR 1.3 07/17/18 07:41 APTT 39 SECONDS (21-34) H 07/09/18 11:31 Attending/Attestation - Attestation I have personally seen and examined this patient.: Yes I have fully participated in the care of the patient.: Yes I have reviewed all pertinent clinical information, including history, physical exam and plan: Yes Notes (Text): Pt was seen and examined at bedside Agree with above note and assessment CT Scan of A/P is normal GI consult appreciated DC plan Plan d.w pt in detail
[2018-07-19] MEDS: Levothyroxine 175 MCG TAB PO SCH (06:18)
[2018-07-19] MEDS: Pantoprazole 40 mg EC Tab PO SCH (10:46)
[2018-07-19] MEDS: Enoxaparin 30 mg Syringe SC SCH ×2 (10:46→21:23)
[2018-07-19] MEDS: Tramadol 25 mg PO PRN ×2 (12:37→21:49)
--- NOTE | 2018-07-19 16:03 | CP.PCM.PN ---
<Esperanza Muñoz - Last Filed: 07/19/18 17:56> Subjective - Date & Time of Evaluation Date of Evaluation: 07/19/18 Time of Evaluation: 07:10 - Subjective Subjective: Surgery progress note for Dr. Robins Patient examined at bedside. No acute events overnight. Patient reports worsening abdominal pain beginning yesterday when she stopped taking medication for pain. Pain is worse with activity, and subsides at rest. Patient reports she is tolerating her diet, passing flatus and having bowel movements. Denies chest pain, SOB, nausea Objective - Vital Signs/Intake and Output Vital Signs (last 24 hours): Temp Pulse Resp BP Pulse Ox 98.0 F 73 20 107/72 97 07/19/18 07:10 07/19/18 07:10 07/19/18 07:10 07/19/18 07:10 07/19/18 07:10 Intake and Output: 07/19/18 07/19/18 06:59 18:59 Intake Total 400 500 Balance 400 500 - Medications Medications: Current Medications Benzocaine/Menthol (Cepacol Sore Throat) 1 nyasia MT Q1H PRN PRN Reason: Sore Throat Last Admin: 07/14/18 18:01 Dose: 1 nyasia Enoxaparin Sodium (Lovenox) 30 mg SC Q12 [facility] Last Admin: 07/19/18 10:46 Dose: 30 mg Levothyroxine Sodium (Synthroid) 175 mcg PO DAILY@0630 [facility] Last Admin: 07/19/18 06:18 Dose: 175 mcg Metoclopramide HCl (Reglan) 10 mg PO ACHS [facility] Last Admin: 07/19/18 12:30 Dose: 10 mg Pantoprazole Sodium (Protonix Ec Tab) 40 mg PO DAILY [facility] Last Admin: 07/19/18 10:46 Dose: 40 mg Tramadol HCl (Ultram) 25 mg PO TID PRN PRN Reason: Pain, moderate (4-7) Last Admin: 07/19/18 12:37 Dose: 25 mg Zolpidem Tartrate (Ambien) 5 mg PO HS PRN PRN Reason: Insomnia Last Admin: 07/16/18 21:59 Dose: 5 mg - Labs Labs: 07/18/18 07:18 07/18/18 07:18 PT 13.9 SECONDS (9.7-12.2) H 07/17/18 07:41 INR 1.3 07/17/18 07:41 APTT 39 SECONDS (21-34) H 07/09/18 11:31 - Constitutional Appears: Non-toxic, No Acute Distress - Head Exam Head Exam: ATRAUMATIC, NORMAL INSPECTION, NORMOCEPHALIC - Eye Exam Eye Exam: EOMI, Normal appearance - ENT Exam ENT Exam: Mucous Membranes Moist - Neck Exam Neck Exam: Normal Inspection - Respiratory Exam Respiratory Exam: NORMAL BREATHING PATTERN. absent: Respiratory Distress - Cardiovascular Exam Cardiovascular Exam: REGULAR RHYTHM. absent: Tachycardia - GI/Abdominal Exam GI & Abdominal Exam: Soft, Tenderness (tender to palpation umbilicus to epigastric region). absent: Distended, Guarding, Rigid, Rebound - Extremities Exam Extremities Exam: Normal Inspection. absent: Calf Tenderness, Pedal Edema - Neurological Exam Neurological Exam: Alert, Awake, Oriented x3 - Psychiatric Exam Psychiatric exam: Normal Affect, Normal Mood - Skin Skin Exam: Dry, Intact, Normal Color, Warm Assessment and Plan - Assessment and Plan (Free Text) Assessment: 33 year old female admitted with SBO, s/p subtotal colectomy 06/11/18 for chronic constipation Plan: -patient discharge postponed pending symptomatic improvement -regular diet -DVT ppx -GI ppx -reglan -encourage ambulation -encourage incentive spirometry -pain medication PRN -abdominal binder Will discuss with Dr. Shimon Muñoz <Landon Robins - Last Filed: 07/21/18 15:28> Objective - Vital Signs/Intake and Output Vital Signs (last 24 hours): Temp Pulse Resp BP Pulse Ox 98.6 F 80 18 114/80 98 07/21/18 07:55 07/21/18 07:55 07/21/18 07:55 07/21/18 07:55 07/21/18 07:55 Intake and Output: 07/21/18 07/21/18 06:59 18:59 Intake Total 200 Balance 200 - Medications Medications: Current Medications Acetaminophen (Tylenol 325mg Tab) 650 mg PO Q6 PRN PRN Reason: Headache Benzocaine/Menthol (Cepacol Sore Throat) 1 nyasia MT Q1H PRN PRN Reason: Sore Throat Last Admin: 07/14/18 18:01 Dose: 1 nyasia Enoxaparin Sodium (Lovenox) 30 mg SC Q12 [facility] Last Admin: 07/21/18 09:04 Dose: 30 mg Levothyroxine Sodium (Synthroid) 175 mcg PO DAILY@0630 [facility] Last Admin: 07/21/18 05:33 Dose: 175 mcg Metoclopramide HCl (Reglan) 10 mg PO ACHS [facility] Last Admin: 07/21/18 12:26 Dose: 10 mg Oxycodone/Acetaminophen (Percocet 5/325 Mg Tab) 1 tab PO Q6H PRN PRN Reason: Pain, severe (8-10) Stop: 07/23/18 20:38 Pantoprazole Sodium (Protonix Ec Tab) 40 mg PO DAILY [facility] Last Admin: 07/21/18 09:05 Dose: 40 mg Tramadol HCl (Ultram) 25 mg PO TID PRN PRN Reason: Pain, moderate (4-7) Last Admin: 07/20/18 20:16 Dose: 25 mg Zolpidem Tartrate (Ambien) 5 mg PO HS PRN PRN Reason: Insomnia Last Admin: 07/16/18 21:59 Dose: 5 mg - Labs Labs: 07/21/18 08:03 07/21/18 08:03 PT 13.9 SECONDS (9.7-12.2) H 07/17/18 07:41 INR 1.3 07/17/18 07:41 APTT 39 SECONDS (21-34) H 07/09/18 11:31 Attending/Attestation - Attestation I have personally seen and examined this patient.: Yes I have fully participated in the care of the patient.: Yes I have reviewed all pertinent clinical information, including history, physical exam and plan: Yes Notes (Text): Pt was seen and examined at bedside Agree with above note and assessment Pt has new complaints of abdominal pain Will DC her in am Plan d.w pt in detail
[2018-07-20] MEDS: Levothyroxine 175 MCG TAB PO SCH (05:40)
--- NOTE | 2018-07-20 09:21 | CP.PCM.DIS ---
Provider - Provider Date of Admission: 07/11/18 13:52 Attending physician: Landon Robins MD Time Spent in preparation of Discharge (in minutes): 29 Diagnosis - Discharge Diagnosis (1) Small bowel obstruction Status: Acute Hospital Course - Lab Results Lab Results: Most Recent Lab Values WBC 5.2 K/uL (4.8-10.8) 07/18/18 07:18 RBC 3.12 Mil/uL (3.80-5.20) L 07/18/18 07:18 Hgb 9.6 g/dL (11.0-16.0) L 07/18/18 07:18 Hct 28.1 % (34.0-47.0) L 07/18/18 07:18 MCV 89.9 fL (81.0-99.0) 07/18/18 07:18 MCH 30.7 pg (27.0-31.0) 07/18/18 07:18 MCHC 34.1 g/dL (33.0-37.0) 07/18/18 07:18 RDW 17.7 % (11.5-14.5) H 07/18/18 07:18 Plt Count 424 K/uL (130-400) H 07/18/18 07:18 MPV 7.9 fL (7.2-11.7) 07/18/18 07:18 Neut % (Auto) 46.2 % (50.0-75.0) L 07/18/18 07:18 Lymph % (Auto) 38.1 % (20.0-40.0) 07/18/18 07:18 [place] % (Auto) 13.3 % (0.0-10.0) H 07/18/18 07:18 Eos % (Auto) 1.5 % (0.0-4.0) 07/18/18 07:18 Baso % (Auto) 0.9 % (0.0-2.0) 07/18/18 07:18 Neut # (Auto) 2.4 K/uL (1.8-7.0) 07/18/18 07:18 Lymph # (Auto) 2.0 K/uL (1.0-4.3) 07/18/18 07:18 [place] # (Auto) 0.7 K/uL (0.0-0.8) 07/18/18 07:18 Eos # (Auto) 0.1 K/uL (0.0-0.7) 07/18/18 07:18 Baso # (Auto) 0.0 K/uL (0.0-0.2) 07/18/18 07:18 PT 13.9 SECONDS (9.7-12.2) H 07/17/18 07:41 INR 1.3 07/17/18 07:41 APTT 39 SECONDS (21-34) H 07/09/18 11:31 Sodium 136 mmol/L (132-148) 07/18/18 07:18 Potassium 4.0 mmol/L (3.6-5.2) 07/18/18 07:18 Chloride 102 mmol/L (98-107) 07/18/18 07:18 Carbon Dioxide 25 mmol/L (22-30) 07/18/18 07:18 Anion Gap 13 (10-20) 07/18/18 07:18 BUN 12 mg/dL (7-17) 07/18/18 07:18 Creatinine 0.5 mg/dL (0.7-1.2) L 07/18/18 07:18 Est GFR ( Amer) > 60 07/18/18 07:18 Est GFR (Non-Af Amer) > 60 07/18/18 07:18 POC Glucose (mg/dL) 83 mg/dL (65-110) 07/16/18 06:37 Random Glucose 86 mg/dL (65-105) 07/18/18 07:18 Lactic Acid 1.1 mmol/L (0.7-2.1) 07/09/18 20:26 Calcium 8.4 mg/dl (8.6-10.4) L 07/18/18 07:18 Phosphorus 3.8 mg/dL (2.5-4.5) 07/18/18 07:18 Magnesium 2.0 mg/dL (1.6-2.3) 07/18/18 07:18 Total Bilirubin 0.3 mg/dL (0.2-1.3) 07/18/18 07:18 AST 34 U/L (14-36) 07/18/18 07:18 ALT 24 U/L (9-52) 07/18/18 07:18 Alkaline Phosphatase 45 U/L (38-126) 07/18/18 07:18 Total Protein 6.0 g/dL (6.3-8.3) L 07/18/18 07:18 Albumin 3.1 g/dL (3.5-5.0) L 07/18/18 07:18 Globulin 2.9 gm/dL (2.2-3.9) 07/18/18 07:18 Albumin/Globulin Ratio 1.0 (1.0-2.1) 07/18/18 07:18 Triglycerides 113 mg/dL (0-149) D 07/13/18 07:40 Cholesterol 132 mg/dL (0-199) 07/13/18 07:40 LDL Cholesterol Direct 90 mg/dL (0-129) 07/13/18 07:40 HDL Cholesterol 29 mg/dL (30-70) L 07/13/18 07:40 Lipase 46 U/L (23-300) 07/09/18 12:41 Beta HCG, Quant < 2.39 mIU/ML 07/09/18 12:41 Urine Color Yellow (YELLOW) 07/11/18 16:13 Urine Clarity Hazy (Clear) 07/11/18 16:13 Urine pH 5.0 (5.0-8.0) 07/11/18 16:13 Ur Specific [place] 1.026 (1.003-1.030) 07/11/18 16:13 Urine Protein 1+ mg/dL (NEGATIVE) H 07/11/18 16:13 Urine Glucose (UA) Normal mg/dL (Normal) 07/11/18 16:13 Urine Ketones 2+ mg/dL (NEGATIVE) H 07/11/18 16:13 Urine Blood Negative (NEGATIVE) 07/11/18 16:13 Urine Nitrate Negative (NEGATIVE) 07/11/18 16:13 Urine Bilirubin Negative (NEGATIVE) 07/11/18 16:13 Urine Urobilinogen Normal mg/dL (0.2-1.0) 07/11/18 16:13 Ur Leukocyte Esterase 2+ [place]/uL (Negative) H 07/11/18 16:13 Urine WBC (Auto) 24 /hpf (0-5) H 07/11/18 16:13 Urine RBC (Auto) 4 /hpf (0-3) H 07/11/18 16:13 Ur Squamous Epith Cells 12 /hpf (0-5) H 07/11/18 16:13 Ur Transition Epith Cell 1 /hpf (0-3) 07/11/18 16:13 Urine Bacteria Few (<OCC) H 07/11/18 16:13 Discharge Exam - Head Exam Head Exam: ATRAUMATIC, NORMAL INSPECTION, NORMOCEPHALIC Discharge Plan - Discharge Medications Prescriptions: Docusate Sodium [Colace] 100 mg PO BID #30 capsule Metoclopramide [Reglan] 10 mg PO ACHS #42 tab Pantoprazole [Protonix EC Tab] 40 mg PO DAILY #14 ect - Follow Up Plan Condition: FAIR Disposition: HOME/ ROUTINE Instructions: Small Bowel Obstruction (DC) Additional Instructions: Call Dr. Robins's office to follow up with him in [address] Cummings's office to schedule a follow up appointment Eat soft foods for next 2 weeks, small portions at a time--monitor for any nausea or vomiting Take reglan before every meal Do not lift more than 15 pounds or do strenuous activity for 4 weeks Take pain medication only as needed--may take tylenol or advil as recommended for pain Stay active--walk multiple times a day, wear your abdominal binder when engaging in physical activity, drink water If you have fever >100.4, severe pain not controlled by medications, severe nausea and vomiting, call Dr. Robins's office or come to ER Llame a la oficina del Dr. Robins para darle seguimiento en 7 walls Llame a la oficina del Dr. Cummings para programar karla ra de seguimiento Coma alimentos blandos ricardo las prximas 2 semanas: pequena cuantidad, controle cualquier nusea o vmito Mady reglan antes de cada comida No levante ms de 15 libras [place] analgsicos solo cuando sea necesario; puede bea tylenol o advil kevin se recomienda para el dolor Mantngase activo - camine varias veces al da, usa el elastico en la sintura, tome agua Si tiene fiebre> 100.4, dolor intenso no controlado por medicamentos, nuseas y vmitos intensos, llame al consultorio del Dr. Robins o acuda a la [place] de emergencias. Referrals: Kedar Cummings MD [Staff Provider] - Landon Robins MD [Staff Provider] -
[2018-07-20] MEDS: Enoxaparin 30 mg Syringe SC SCH ×2 (10:26→22:34)
[2018-07-20] MEDS: Pantoprazole 40 mg EC Tab PO SCH (10:26)
--- NOTE | 2018-07-20 11:41 | CP.PCM.PN ---
<Esperanza Muñoz - Last Filed: 07/20/18 17:31> Subjective - Date & Time of Evaluation Date of Evaluation: 07/20/18 Time of Evaluation: 07:20 - Subjective Subjective: surgery progress note for Dr. Robins Patient examined at bedside. No acute events overnight. Patient complains of persistent abdominal pain as previously. Patient reports she is uncomfortable going home in pain for fear she'll get worse. Patient reports she has been ambulating, voiding, passing flatus, and having bowel movements. Denies chest pain, nausea, vomiting. Objective - Vital Signs/Intake and Output Vital Signs (last 24 hours): Temp Pulse Resp BP Pulse Ox 98.1 F 83 20 105/70 95 07/20/18 07:57 07/20/18 07:57 07/20/18 07:57 07/20/18 07:57 07/20/18 07:57 Intake and Output: 07/20/18 07/20/18 06:59 18:59 Intake Total 120 Balance 120 - Medications Medications: Current Medications Benzocaine/Menthol (Cepacol Sore Throat) 1 nyasia MT Q1H PRN PRN Reason: Sore Throat Last Admin: 07/14/18 18:01 Dose: 1 nyasia Enoxaparin Sodium (Lovenox) 30 mg SC Q12 [facility] Last Admin: 07/20/18 10:26 Dose: 30 mg Levothyroxine Sodium (Synthroid) 175 mcg PO DAILY@0630 [facility] Last Admin: 07/20/18 05:40 Dose: 175 mcg Metoclopramide HCl (Reglan) 10 mg PO ACHS [facility] Last Admin: 07/20/18 08:38 Dose: 10 mg Pantoprazole Sodium (Protonix Ec Tab) 40 mg PO DAILY [facility] Last Admin: 07/20/18 10:26 Dose: 40 mg Tramadol HCl (Ultram) 25 mg PO TID PRN PRN Reason: Pain, moderate (4-7) Last Admin: 07/19/18 21:49 Dose: 25 mg Zolpidem Tartrate (Ambien) 5 mg PO HS PRN PRN Reason: Insomnia Last Admin: 07/16/18 21:59 Dose: 5 mg - Labs Labs: 07/18/18 07:18 07/18/18 07:18 PT 13.9 SECONDS (9.7-12.2) H 07/17/18 07:41 INR 1.3 07/17/18 07:41 APTT 39 SECONDS (21-34) H 07/09/18 11:31 - Constitutional Appears: Non-toxic, No Acute Distress - Head Exam Head Exam: ATRAUMATIC, NORMAL INSPECTION, NORMOCEPHALIC - Eye Exam Eye Exam: EOMI, Normal appearance - ENT Exam ENT Exam: Mucous Membranes Moist, Normal Exam - Neck Exam Neck Exam: Normal Inspection - Respiratory Exam Respiratory Exam: NORMAL BREATHING PATTERN. absent: Respiratory Distress - Cardiovascular Exam Cardiovascular Exam: REGULAR RHYTHM. absent: Tachycardia - GI/Abdominal Exam GI & Abdominal Exam: Soft, Tenderness (tender to palpation periumbilical to epigastrum), Normal Bowel Sounds. absent: Distended, Guarding - Extremities Exam Extremities Exam: Normal Inspection. absent: Calf Tenderness, Pedal Edema - Neurological Exam Neurological Exam: Alert, Awake, Oriented x3 - Skin Skin Exam: Dry, Intact, Normal Color, Warm Assessment and Plan (1) Small bowel obstruction Status: Acute - Assessment and Plan (Free Text) Assessment: 33 year old female admitted with SBO Plan: -patient staying for evaluation of persistent abdominal pain -resume regular diet -DVT ppx -GI ppx -encourage incentive spirometry use -encourage ambulation -abdominal binder -pain medication PRN Discussed with Dr. Shimon Muñoz, PGY-1 <Landon Robins - Last Filed: 07/21/18 15:30> Objective - Vital Signs/Intake and Output Vital Signs (last 24 hours): Temp Pulse Resp BP Pulse Ox 98.6 F 80 18 114/80 98 07/21/18 07:55 07/21/18 07:55 07/21/18 07:55 07/21/18 07:55 07/21/18 07:55 Intake and Output: 07/21/18 07/21/18 06:59 18:59 Intake Total 200 Balance 200 - Medications Medications: Current Medications Acetaminophen (Tylenol 325mg Tab) 650 mg PO Q6 PRN PRN Reason: Headache Benzocaine/Menthol (Cepacol Sore Throat) 1 nyasia MT Q1H PRN PRN Reason: Sore Throat Last Admin: 07/14/18 18:01 Dose: 1 nyasia Enoxaparin Sodium (Lovenox) 30 mg SC Q12 [facility] Last Admin: 07/21/18 09:04 Dose: 30 mg Levothyroxine Sodium (Synthroid) 175 mcg PO DAILY@0630 [facility] Last Admin: 07/21/18 05:33 Dose: 175 mcg Metoclopramide HCl (Reglan) 10 mg PO ACHS [facility] Last Admin: 07/21/18 12:26 Dose: 10 mg Oxycodone/Acetaminophen (Percocet 5/325 Mg Tab) 1 tab PO Q6H PRN PRN Reason: Pain, severe (8-10) Stop: 07/23/18 20:38 Pantoprazole Sodium (Protonix Ec Tab) 40 mg PO DAILY [facility] Last Admin: 07/21/18 09:05 Dose: 40 mg Tramadol HCl (Ultram) 25 mg PO TID PRN PRN Reason: Pain, moderate (4-7) Last Admin: 07/20/18 20:16 Dose: 25 mg Zolpidem Tartrate (Ambien) 5 mg PO HS PRN PRN Reason: Insomnia Last Admin: 07/16/18 21:59 Dose: 5 mg - Labs Labs: 07/21/18 08:03 07/21/18 08:03 PT 13.9 SECONDS (9.7-12.2) H 07/17/18 07:41 INR 1.3 07/17/18 07:41 APTT 39 SECONDS (21-34) H 07/09/18 11:31 Attending/Attestation - Attestation I have personally seen and examined this patient.: Yes I have fully participated in the care of the patient.: Yes I have reviewed all pertinent clinical information, including history, physical exam and plan: Yes Notes (Text): Pt was seen and examined at bedside Agree with above note and assessment Pt has more abdominal pain and nausea liquid diet only c.w current mx Plan d.w pt in detail Risk and benefit explained in detail.
[2018-07-20 12:27] LABS: BASO # 0.1 K/uL (0.0-0.2); BASO % 0.7 % (0.0-2.0); EOS # 0.1 K/uL (0.0-0.7); EOS % 0.9 % (0.0-4.0); HEMOGLOBIN 10.2 g/dL (11.0-16.0); LYMPH # 1.8 K/uL (1.0-4.3); LYMPH % 23.5 % (20.0-40.0); MEAN CELL VOLUME 90.4 fL (81.0-99.0); MEAN CORPUSCULAR HEMOGLOBIN 31.1 pg (27.0-31.0); MEAN CORPUSCULAR HGB CONC 34.3 g/dL (33.0-37.0); MEAN PLATELET VOLUME 8.2 fL (7.2-11.7); MONO # 0.6 K/uL (0.0-0.8); MONO % 7.4 % (0.0-10.0); NEUT # 5.1 K/uL (1.8-7.0); NEUT % 67.5 % (50.0-75.0); RBC 3.28 Mil/uL (3.80-5.20); RED CELL DISTRIBUTION WIDTH 17.6 % (11.5-14.5); WHITE BLOOD COUNT 7.5 K/uL (4.8-10.8)
[2018-07-20 13:03] LABS: ALB/GLOB RATIO 1.1 (1.0-2.1); ALBUMIN 3.5 g/dL (3.5-5.0); ALT/SGPT 16 U/L (9-52); AST/SGOT 29 U/L (14-36); BLOOD UREA NITROGEN 13 mg/dL (7-17); CALCIUM 8.9 mg/dl (8.6-10.4); GFR NON-AFRICAN AMERICAN > 60
[2018-07-20] MEDS: Tramadol 25 mg PO PRN ×2 (16:12→20:16)
[2018-07-20] MEDS ORDERED: Oxycodone/Acetaminophen 5/325 mg Tab PO PRN (20:37)
[2018-07-21] MEDS: Levothyroxine 175 MCG TAB PO SCH (05:33)
[2018-07-21 08:18] LABS: BASO # 0.1 K/uL (0.0-0.2); BASO % 0.7 % (0.0-2.0); EOS # 0.1 K/uL (0.0-0.7); EOS % 0.7 % (0.0-4.0); HEMOGLOBIN 10.6 g/dL (11.0-16.0); LYMPH # 2.1 K/uL (1.0-4.3); MEAN CELL VOLUME 89.9 fL (81.0-99.0); MEAN CORPUSCULAR HEMOGLOBIN 30.8 pg (27.0-31.0); MEAN CORPUSCULAR HGB CONC 34.3 g/dL (33.0-37.0); MEAN PLATELET VOLUME 8.2 fL (7.2-11.7); MONO # 0.6 K/uL (0.0-0.8); MONO % 5.9 % (0.0-10.0); NEUT # 6.7 K/uL (1.8-7.0); NEUT % 70.7 % (50.0-75.0); RBC 3.43 Mil/uL (3.80-5.20); RED CELL DISTRIBUTION WIDTH 17.6 % (11.5-14.5); WHITE BLOOD COUNT 9.4 K/uL (4.8-10.8)
[2018-07-21 08:26] LABS: ALB/GLOB RATIO 1.2 (1.0-2.1); ALBUMIN 3.8 g/dL (3.5-5.0); ALT/SGPT 24 U/L (9-52); AST/SGOT 26 U/L (14-36); BLOOD UREA NITROGEN 12 mg/dL (7-17); GFR NON-AFRICAN AMERICAN > 60
[2018-07-21] MEDS: Enoxaparin 30 mg Syringe SC SCH ×2 (09:04→21:28)
[2018-07-21] MEDS: Pantoprazole 40 mg EC Tab PO SCH (09:05)
--- NOTE | 2018-07-21 10:32 | CP.PCM.PN ---
<Soni Newman - Last Filed: 07/21/18 10:30> Subjective - Date & Time of Evaluation Date of Evaluation: 07/21/18 Time of Evaluation: 07:00 - Subjective Subjective: Surgery: Dr. Robins Pt seen and examined. No acute overnight events. States she had some epigastric pain yesterday after eating with one episode of vomiting. However, feeling better this AM. Pt continues to have small BMs and admits to flatus. Denies anymore episodes of vomiting. Denies fevers/chills. Objective - Vital Signs/Intake and Output Vital Signs (last 24 hours): Temp Pulse Resp BP Pulse Ox 98.6 F 80 18 114/80 98 07/21/18 07:55 07/21/18 07:55 07/21/18 07:55 07/21/18 07:55 07/21/18 07:55 Intake and Output: 07/21/18 07/21/18 06:59 18:59 Intake Total 200 Balance 200 - Medications Medications: Current Medications Acetaminophen (Tylenol 325mg Tab) 650 mg PO Q6 PRN PRN Reason: Headache Benzocaine/Menthol (Cepacol Sore Throat) 1 nyasia MT Q1H PRN PRN Reason: Sore Throat Last Admin: 07/14/18 18:01 Dose: 1 nyasia Enoxaparin Sodium (Lovenox) 30 mg SC Q12 [facility] Last Admin: 07/21/18 09:04 Dose: 30 mg Levothyroxine Sodium (Synthroid) 175 mcg PO DAILY@0630 [facility] Last Admin: 07/21/18 05:33 Dose: 175 mcg Metoclopramide HCl (Reglan) 10 mg PO [facility] Last Admin: 07/21/18 08:32 Dose: 10 mg Oxycodone/Acetaminophen (Percocet 5/325 Mg Tab) 1 tab PO Q6H PRN PRN Reason: Pain, severe (8-10) Stop: 07/23/18 20:38 Pantoprazole Sodium (Protonix Ec Tab) 40 mg PO DAILY [facility] Last Admin: 07/21/18 09:05 Dose: 40 mg Tramadol HCl (Ultram) 25 mg PO TID PRN PRN Reason: Pain, moderate (4-7) Last Admin: 07/20/18 20:16 Dose: 25 mg Zolpidem Tartrate (Ambien) 5 mg PO HS PRN PRN Reason: Insomnia Last Admin: 07/16/18 21:59 Dose: 5 mg - Labs Labs: 07/21/18 08:03 07/21/18 08:03 PT 13.9 SECONDS (9.7-12.2) H 07/17/18 07:41 INR 1.3 07/17/18 07:41 APTT 39 SECONDS (21-34) H 07/09/18 11:31 - Constitutional Appears: Well, No Acute Distress - Head Exam Head Exam: ATRAUMATIC, NORMOCEPHALIC - Eye Exam Eye Exam: Normal appearance - ENT Exam ENT Exam: Mucous Membranes Moist - Respiratory Exam Respiratory Exam: NORMAL BREATHING PATTERN - Cardiovascular Exam Cardiovascular Exam: RRR - GI/Abdominal Exam GI & Abdominal Exam: Soft, Tenderness (epigastric, midline incision clean/dry/intact ). absent: Distended, Guarding, Rebound - Neurological Exam Neurological Exam: Alert, Awake, Oriented x3 - Skin Skin Exam: Dry, Warm Assessment and Plan - Assessment and Plan (Free Text) Assessment: 33F s/p subtotal colectomy admitted for SBO; resolving Plan: - cont regular diet - monitor abdominal pain and further episodes of vomiting - monitor bowel function - encourage ambulation - minimal narcotics for pain control - d/w Dr. Shimon Newman <Landon Robins - Last Filed: 07/21/18 15:30> Objective - Vital Signs/Intake and Output Vital Signs (last 24 hours): Temp Pulse Resp BP Pulse Ox 98.6 F 80 18 114/80 98 07/21/18 07:55 07/21/18 07:55 07/21/18 07:55 07/21/18 07:55 07/21/18 07:55 Intake and Output: 07/21/18 07/21/18 06:59 18:59 Intake Total 200 Balance 200 - Medications Medications: Current Medications Acetaminophen (Tylenol 325mg Tab) 650 mg PO Q6 PRN PRN Reason: Headache Benzocaine/Menthol (Cepacol Sore Throat) 1 nyasia MT Q1H PRN PRN Reason: Sore Throat Last Admin: 07/14/18 18:01 Dose: 1 nyasia Enoxaparin Sodium (Lovenox) 30 mg SC Q12 [facility] Last Admin: 07/21/18 09:04 Dose: 30 mg Levothyroxine Sodium (Synthroid) 175 mcg PO DAILY@0630 [facility] Last Admin: 07/21/18 05:33 Dose: 175 mcg Metoclopramide HCl (Reglan) 10 mg PO ACHS [facility] Last Admin: 07/21/18 12:26 Dose: 10 mg Oxycodone/Acetaminophen (Percocet 5/325 Mg Tab) 1 tab PO Q6H PRN PRN Reason: Pain, severe (8-10) Stop: 07/23/18 20:38 Pantoprazole Sodium (Protonix Ec Tab) 40 mg PO DAILY [facility] Last Admin: 07/21/18 09:05 Dose: 40 mg Tramadol HCl (Ultram) 25 mg PO TID PRN PRN Reason: Pain, moderate (4-7) Last Admin: 07/20/18 20:16 Dose: 25 mg Zolpidem Tartrate (Ambien) 5 mg PO HS PRN PRN Reason: Insomnia Last Admin: 07/16/18 21:59 Dose: 5 mg - Labs Labs: 07/21/18 08:03 07/21/18 08:03 PT 13.9 SECONDS (9.7-12.2) H 07/17/18 07:41 INR 1.3 07/17/18 07:41 APTT 39 SECONDS (21-34) H 07/09/18 11:31 Attending/Attestation - Attestation I have fully participated in the care of the patient.: Yes I have reviewed all pertinent clinical information, including history, physical exam and plan: Yes Notes (Text): Pt is improving clinically C/w liquid diet DC Plan Plan d.w pt in detail
[2018-07-21 15:47] VITALS: RESP 20
[2018-07-22] MEDS: Levothyroxine 175 MCG TAB PO SCH (06:40)
--- NOTE | 2018-07-22 08:42 | CP.PCM.PN ---
Subjective - Date & Time of Evaluation Date of Evaluation: 07/22/18 Time of Evaluation: 08:36 - Subjective Subjective: Surgery: Dr. Robins Pt seen and examined. No acute overnight events. Pt states her night went well and she didn't have any episodes of vomiting. She is tolerating her diet and admits to flatus/BM. Denies fevers/chills, chest pain or SOB. Objective - Vital Signs/Intake and Output Vital Signs (last 24 hours): Temp Pulse Resp BP Pulse Ox 97.9 F 70 20 114/78 96 07/22/18 07:00 07/22/18 07:00 07/22/18 07:00 07/22/18 07:00 07/22/18 07:00 Intake and Output: 07/22/18 07/22/18 06:59 18:59 Output Total 0 Balance 0 - Medications Medications: Current Medications Acetaminophen (Tylenol 325mg Tab) 650 mg PO Q6 PRN PRN Reason: Headache Benzocaine/Menthol (Cepacol Sore Throat) 1 nyasia MT Q1H PRN PRN Reason: Sore Throat Last Admin: 07/14/18 18:01 Dose: 1 nyasia Enoxaparin Sodium (Lovenox) 30 mg SC Q12 [facility] Last Admin: 07/21/18 21:28 Dose: Not Given Levothyroxine Sodium (Synthroid) 175 mcg PO DAILY@0630 [facility] Last Admin: 07/22/18 06:40 Dose: 175 mcg Metoclopramide HCl (Reglan) 10 mg PO ACHS [facility] [place] Last Admin: 07/22/18 06:40 Dose: 10 mg Oxycodone/Acetaminophen (Percocet 5/325 Mg Tab) 1 tab PO Q6H PRN PRN Reason: Pain, severe (8-10) Stop: 07/23/18 20:38 Pantoprazole Sodium (Protonix Ec Tab) 40 mg PO DAILY [facility] [place] Last Admin: 07/21/18 09:05 Dose: 40 mg Tramadol HCl (Ultram) 25 mg PO TID PRN PRN Reason: Pain, moderate (4-7) Last Admin: 07/20/18 20:16 Dose: 25 mg Zolpidem Tartrate (Ambien) 5 mg PO HS PRN PRN Reason: Insomnia Last Admin: 07/16/18 21:59 Dose: 5 mg - Labs Labs: 07/21/18 08:03 07/21/18 08:03 PT 13.9 SECONDS (9.7-12.2) H 07/17/18 07:41 INR 1.3 07/17/18 07:41 APTT 39 SECONDS (21-34) H 07/09/18 11:31 - Constitutional Appears: Well, No Acute Distress - Head Exam Head Exam: ATRAUMATIC, NORMOCEPHALIC - ENT Exam ENT Exam: Mucous Membranes Moist - Respiratory Exam Respiratory Exam: NORMAL BREATHING PATTERN - Cardiovascular Exam Cardiovascular Exam: RRR - GI/Abdominal Exam GI & Abdominal Exam: Soft, Tenderness (around in the midline incision ). a bsent: Distended, Guarding, Rebound - Neurological Exam Neurological Exam: Alert, Awake, Oriented x3 - Skin Skin Exam: Dry, Warm Assessment and Plan - Assessment and Plan (Free Text) Assessment: 33F s/p subtotal colectomy admitted for SBO; resolved Plan: - cont reg diet - pt tolerating PO meds - encourage ambulation - plan for DC tomorrow if continues to do well - d/w Dr. Shimon Newman
[2018-07-22] MEDS: Pantoprazole 40 mg EC Tab PO SCH (10:28)
[2018-07-22] MEDS: Enoxaparin 30 mg Syringe SC SCH ×2 (10:28→21:12)
--- NOTE | 2018-07-22 11:12 | CP.PCM.PN ---
Subjective - Date & Time of Evaluation Date of Evaluation: 07/22/18 Time of Evaluation: 07:30 - Subjective Subjective: General surgery progress note for Dr. Robins Pt seen and examined this AM. No adverse events overnight. Patient tolerated diet, pain is improved, with BM and passing gas Objective - Vital Signs/Intake and Output Vital Signs (last 24 hours): Temp Pulse Resp BP Pulse Ox 97.9 F 70 20 114/78 96 07/22/18 07:00 07/22/18 07:00 07/22/18 07:00 07/22/18 07:00 07/22/18 07:00 Intake and Output: 07/22/18 07/22/18 06:59 18:59 Output Total 0 Balance 0 - Medications Medications: Current Medications Acetaminophen (Tylenol 325mg Tab) 650 mg PO Q6 PRN PRN Reason: Headache Benzocaine/Menthol (Cepacol Sore Throat) 1 nyasia MT Q1H PRN PRN Reason: Sore Throat Last Admin: 07/14/18 18:01 Dose: 1 nyasia Enoxaparin Sodium (Lovenox) 30 mg SC Q12 [facility] Last Admin: 07/22/18 10:28 Dose: 30 mg Levothyroxine Sodium (Synthroid) 175 mcg PO DAILY@0630 [facility] Last Admin: 07/22/18 06:40 Dose: 175 mcg Metoclopramide HCl (Reglan) 10 mg PO [facility] Last Admin: 07/22/18 10:29 Dose: 10 mg Oxycodone/Acetaminophen (Percocet 5/325 Mg Tab) 1 tab PO Q6H PRN PRN Reason: Pain, severe (8-10) Stop: 07/23/18 20:38 Pantoprazole Sodium (Protonix Ec Tab) 40 mg PO DAILY [facility] Last Admin: 07/22/18 10:28 Dose: 40 mg Tramadol HCl (Ultram) 25 mg PO TID PRN PRN Reason: Pain, moderate (4-7) Last Admin: 07/20/18 20:16 Dose: 25 mg Zolpidem Tartrate (Ambien) 5 mg PO HS PRN PRN Reason: Insomnia Last Admin: 07/16/18 21:59 Dose: 5 mg - Labs Labs: 07/21/18 08:03 07/21/18 08:03 PT 13.9 SECONDS (9.7-12.2) H 07/17/18 07:41 INR 1.3 07/17/18 07:41 APTT 39 SECONDS (21-34) H 07/09/18 11:31 - Constitutional Appears: Well, Non-toxic, No Acute Distress - Head Exam Head Exam: ATRAUMATIC, NORMOCEPHALIC - Eye Exam Eye Exam: Normal appearance. absent: Conjunctival injection, Scleral icterus - ENT Exam ENT Exam: Mucous Membranes Moist, Normal Oropharynx - Respiratory Exam Respiratory Exam: NORMAL BREATHING PATTERN. absent: Accessory Muscle Use, Res piratory Distress - Cardiovascular Exam Cardiovascular Exam: RRR - GI/Abdominal Exam GI & Abdominal Exam: Soft, Tenderness (mild LLQ tenderness). absent: Distended, Rebound Additional comments: incision sites well healed - Neurological Exam Neurological Exam: Alert, Awake, Oriented x3 - Psychiatric Exam Psychiatric exam: Normal Affect, Normal Mood - Skin Skin Exam: Dry, Normal Color, Warm Assessment and Plan - Assessment and Plan (Free Text) Assessment: 33F with SBO 6 weeks s/p subtotal colectomy, now improved Plan: Pt still has some pain,, will keep another night for observation Continue current regimen Continue PRN pain and nausea medication Encourage ambulation Discussed with Dr. Shimon Hopper, PGY2
[2018-07-22] MEDS: Tramadol 25 mg PO PRN (23:58)
[2018-07-23] MEDS: Levothyroxine 175 MCG TAB PO SCH (06:48)
[2018-07-23] MEDS: Enoxaparin 30 mg Syringe SC SCH (10:44)
[2018-07-23] MEDS: Pantoprazole 40 mg EC Tab PO SCH (11:16)
--- NOTE | 2018-07-23 16:55 | CP.PCM.DIS ---
Provider - Provider Date of Admission: 07/11/18 13:52 Attending physician: Landon Robins MD Time Spent in preparation of Discharge (in minutes): 29 Diagnosis - Discharge Diagnosis (1) Small bowel obstruction Status: Acute Hospital Course - Lab Results Lab Results: Most Recent Lab Values WBC 9.4 K/uL (4.8-10.8) 07/21/18 08:03 RBC 3.43 Mil/uL (3.80-5.20) L 07/21/18 08:03 Hgb 10.6 g/dL (11.0-16.0) L 07/21/18 08:03 Hct 30.8 % (34.0-47.0) L 07/21/18 08:03 MCV 89.9 fL (81.0-99.0) 07/21/18 08:03 MCH 30.8 pg (27.0-31.0) 07/21/18 08:03 MCHC 34.3 g/dL (33.0-37.0) 07/21/18 08:03 RDW 17.6 % (11.5-14.5) H 07/21/18 08:03 Plt Count 423 K/uL (130-400) H 07/21/18 08:03 MPV 8.2 fL (7.2-11.7) 07/21/18 08:03 Neut % (Auto) 70.7 % (50.0-75.0) 07/21/18 08:03 Lymph % (Auto) 22.0 % (20.0-40.0) 07/21/18 08:03 [place] % (Auto) 5.9 % (0.0-10.0) 07/21/18 08:03 Eos % (Auto) 0.7 % (0.0-4.0) 07/21/18 08:03 Baso % (Auto) 0.7 % (0.0-2.0) 07/21/18 08:03 Neut # (Auto) 6.7 K/uL (1.8-7.0) 07/21/18 08:03 Lymph # (Auto) 2.1 K/uL (1.0-4.3) 07/21/18 08:03 [place] # (Auto) 0.6 K/uL (0.0-0.8) 07/21/18 08:03 Eos # (Auto) 0.1 K/uL (0.0-0.7) 07/21/18 08:03 Baso # (Auto) 0.1 K/uL (0.0-0.2) 07/21/18 08:03 PT 13.9 SECONDS (9.7-12.2) H 07/17/18 07:41 INR 1.3 07/17/18 07:41 APTT 39 SECONDS (21-34) H 07/09/18 11:31 Sodium 135 mmol/L (132-148) 07/21/18 08:03 Potassium 3.6 mmol/L (3.6-5.2) 07/21/18 08:03 Chloride 100 mmol/L (98-107) 07/21/18 08:03 Carbon Dioxide 24 mmol/L (22-30) 07/21/18 08:03 Anion Gap 14 (10-20) 07/21/18 08:03 BUN 12 mg/dL (7-17) 07/21/18 08:03 Creatinine 0.5 mg/dL (0.7-1.2) L 07/21/18 08:03 Est GFR ( Amer) > 60 07/21/18 08:03 Est GFR (Non-Af Amer) > 60 07/21/18 08:03 POC Glucose (mg/dL) 90 mg/dL (65-110) 07/23/18 16:01 Random Glucose 81 mg/dL (65-105) 07/21/18 08:03 Lactic Acid 1.1 mmol/L (0.7-2.1) 07/09/18 20:26 Calcium 9.0 mg/dl (8.6-10.4) 07/21/18 08:03 Phosphorus 3.8 mg/dL (2.5-4.5) 07/18/18 07:18 Magnesium 2.0 mg/dL (1.6-2.3) 07/18/18 07:18 Total Bilirubin 0.5 mg/dL (0.2-1.3) 07/21/18 08:03 AST 26 U/L (14-36) 07/21/18 08:03 ALT 24 U/L (9-52) 07/21/18 08:03 Alkaline Phosphatase 77 U/L (38-126) 07/21/18 08:03 Total Protein 6.9 g/dL (6.3-8.3) 07/21/18 08:03 Albumin 3.8 g/dL (3.5-5.0) 07/21/18 08:03 Globulin 3.1 gm/dL (2.2-3.9) 07/21/18 08:03 Albumin/Globulin Ratio 1.2 (1.0-2.1) 07/21/18 08:03 Triglycerides 113 mg/dL (0-149) D 07/13/18 07:40 Cholesterol 132 mg/dL (0-199) 07/13/18 07:40 LDL Cholesterol Direct 90 mg/dL (0-129) 07/13/18 07:40 HDL Cholesterol 29 mg/dL (30-70) L 07/13/18 07:40 Lipase 46 U/L (23-300) 07/09/18 12:41 Beta HCG, Quant < 2.39 mIU/ML 07/09/18 12:41 Urine Color Yellow (YELLOW) 07/11/18 16:13 Urine Clarity Hazy (Clear) 07/11/18 16:13 Urine pH 5.0 (5.0-8.0) 07/11/18 16:13 Ur Specific [place] 1.026 (1.003-1.030) 07/11/18 16:13 Urine Protein 1+ mg/dL (NEGATIVE) H 07/11/18 16:13 Urine Glucose (UA) Normal mg/dL (Normal) 07/11/18 16:13 Urine Ketones 2+ mg/dL (NEGATIVE) H 07/11/18 16:13 Urine Blood Negative (NEGATIVE) 07/11/18 16:13 Urine Nitrate Negative (NEGATIVE) 07/11/18 16:13 Urine Bilirubin Negative (NEGATIVE) 07/11/18 16:13 Urine Urobilinogen Normal mg/dL (0.2-1.0) 07/11/18 16:13 Ur Leukocyte Esterase 2+ [place]/uL (Negative) H 07/11/18 16:13 Urine WBC (Auto) 24 /hpf (0-5) H 07/11/18 16:13 Urine RBC (Auto) 4 /hpf (0-3) H 07/11/18 16:13 Ur Squamous Epith Cells 12 /hpf (0-5) H 07/11/18 16:13 Ur Transition Epith Cell 1 /hpf (0-3) 07/11/18 16:13 Urine Bacteria Few (<OCC) H 07/11/18 16:13 - Hospital Course Hospital Course: Patient presented tto the hospital with symptoms of SBO including nausea, vomiting, abdominal pain. Abdominal and pelvic CT as well as X-ray revealed SBO. Patient was treated w conservative management including NPO, NGT, bowel rest, IVF, electrolyte repletion, IV Abx. During course, p[atients symptoms improved. NGT was removed and patient started on diet, tolerating well. Patient passed flatus and had bowel movements. Pain improved with minimal pain medication use. HPI on admission: "Pt is a 33F with PSH significant for subtotal colectomy on 06/11/18 for chronic constipation. Patient had an extended recovery in the hospital d/t diet intolerance and partial SBO, as well as a portal vein thrombus discovered while admitted. Patient comes to ER today for nausea, vomiting, and abdominal pain that began yesterday. Patient states that pain is in the epigastrium, does not radiate, and is alleviated a little when she vomits. patient states that she vomited 7 times yesterday and that it was at first just food and then became bilious. Patient denies any hematemesis, is having liquid, non-bloody BM's and passing flatus, denies fevers or chills, dysuria, hematuria, chest pain, SOB, but has not been able to eat much since her discharge." Discharge Exam - Head Exam Head Exam: ATRAUMATIC, NORMAL INSPECTION, NORMOCEPHALIC - Eye Exam Eye Exam: EOMI, Normal appearance - ENT Exam ENT Exam: Mucous Membranes Moist - Respiratory Exam Respiratory Exam: NORMAL BREATHING PATTERN, UNREMARKABLE - Cardiovascular Exam Cardiovascular Exam: REGULAR RHYTHM - GI/Abdominal Exam GI & Abdominal Exam: Normal Bowel Sounds, Soft, Tenderness (minimal tenderness to palpation from epigastrium to umbilicus). absent: Distended - Extremities Exam Extremities exam: normal inspection - Neurological Exam Neurological exam: Alert, Normal Gait, Oriented x3 - Psychiatric Exam Psychiatric exam: Normal Affect, Normal Mood - Skin Skin Exam: Dry, Intact, Normal Color, Warm Discharge Plan - Discharge Medications Prescriptions: Docusate Sodium [Colace] 100 mg PO BID #30 capsule Metoclopramide [Reglan] 10 mg PO ACHS #42 tab Pantoprazole [Protonix EC Tab] 40 mg PO DAILY #14 ect - Follow Up Plan Condition: FAIR Disposition: HOME/ ROUTINE Instructions: Small Bowel Obstruction (DC) Additional Instructions: Call Dr. Robins's office to follow up with him in [address] Cummings's office to schedule a follow up appointment Eat soft foods for next 2 weeks, small portions at a time--monitor for any nausea or vomiting Take reglan before every meal Do not lift more than 15 pounds or do strenuous activity for 4 weeks Take pain medication only as needed--may take tylenol or advil as recommended for pain Stay active--walk multiple times a day, wear your abdominal binder when engaging in physical activity, drink water If you have fever >100.4, severe pain not controlled by medications, severe nausea and vomiting, call Dr. Robins's office or come to ER Llame a la oficina del Dr. Robins para darle seguimiento en 7 walls Llame a la oficina del Dr. Cummings para programar karla ra de seguimiento Coma alimentos blandos ricardo las prximas 2 semanas: pequena cuantidad, controle cualquier nusea o vmito Mady reglan antes de cada comida No levante ms de 15 libras [place] analgsicos solo cuando sea necesario; puede bea tylenol o advil kevin se recomienda para el dolor Mantngase activo - camine varias veces al da, usa el elastico en la sintura, tome agua Si tiene fiebre> 100.4, dolor intenso no controlado por medicamentos, nuseas y vmitos intensos, llame al consultorio del Dr. Robins o acuda a la [place] de emergencias. Referrals: Kedar Cummings MD [Staff Provider] - Landon Robins MD [Staff Provider] -
[2018-07-23 17:29] VITALS: BP 103/69; PULSE 92; TEMP 98.2; O2SAT 97
== END 2018-07-23 18:10 | disposition home or self-care (01) | DRG 390 ==
LOC: C.ER 10:51 → C.5S 15:57 → OBSVTOIN 07-11 13:52
PROVIDERS: ADMIT Surgery Surgical Critical Care; ATTEND Surgery Surgical Critical Care
PROC: 3E0336Z Introduction of Nutritional Substance into Peripheral Vein, Percutaneous Approach (ICD-10-PCS; principal; 2018-07-11)
DX: K56.600 Partial intestinal obstruction, unspecified as to cause (principal); G47.01 Insomnia due to medical condition; K59.09 Other constipation; Z51.5 Encounter for palliative care; K59.8 Other specified functional intestinal disorders; K22.0 Achalasia of cardia; D63.8 Anemia in other chronic diseases classified elsewhere; E03.9 Hypothyroidism, unspecified; E05.90 Thyrotoxicosis, unspecified without thyrotoxic crisis or storm; F43.10 Post-traumatic stress disorder, unspecified; Z90.49 Acquired absence of other specified parts of digestive tract

== ENCOUNTER 2018-12-11 06:53 | Emergency (ER) | payer MEDICAID, SELFPAY ==
[2018-12-11 06:53] VITALS: BMI 19.5
[2018-12-11] MEDS ORDERED: Sodium Chloride 0.9% 1,000 ML IV ONE (07:37)
--- NOTE | 2018-12-11 07:38 | C.PDOC ---
History Of Present Illness 33 y/o female with PMHx of small bowel obstruction s/p colectomy, last in 06/2018, presents today to the ED for evaluation of epigastric pain and nausea developed for the past few days. Associated with one episode of no-bilious vomit ing and a few episodes of non-bloody, watery diarrhea. Of note patient first noted symptoms after sustaining a mechanical fall at home. Otherwise pt denies head injury, fevers, chills, headache, dizziness, neck pain, chest pain, sob, hematemesis, melena, UTI sx, denies any oter active complaints. Appears in pain now.. Time Seen by Provider: 12/11/18 07:20 Chief Complaint (Nursing): Abdominal Pain History Per: Patient History/Exam Limitations: no limitations Onset/Duration Of Symptoms: Days Current Symptoms Are (Timing): Still Present Location Of Pain/Discomfort: Epigastric Past Medical History Vital Signs: Last Vital Signs Temp 97.9 F 12/11/18 07:09 Pulse 83 12/11/18 07:09 Resp 22 12/11/18 07:09 BP 103/70 12/11/18 07:09 Pulse Ox 99 12/11/18 07:09 - Medical History PMH: Hypothyroidism, Migraine, Obstructive Bowel, Post Traumatic Stress Disorder Denies: Hyperthyroidism, Chronic Kidney Disease Surgical History: Endoscopy Other Surgeries: Colectomy - [facility] Procedures EXCISION OF LARGE INTESTINE, OPEN APPROACH (06/11/18) INSERT OF INFUSION PUMP INTO ABD SUBCU/FASCIA, PERC APPROACH (05/17/17) INSERTION OF INFUSION DEV INTO SUP VENA CAVA, PERC APPROACH (06/11/18) INTRODUCTION OF NUTRITIONAL INTO PERIPH VEIN, PERC APPROACH (07/11/18) IRRIGATION OF LOWER GI USING IRRIGATING SUBSTANCE, ENDO (09/05/16) RELEASE PERITONEUM, OPEN APPROACH (06/11/18) RESECTION OF RECTUM, PERCUTANEOUS ENDOSCOPIC APPROACH (05/17/17) RESECTION OF SIGMOID COLON, PERCUTANEOUS ENDOSCOPIC APPROACH (05/17/17) Family History: States: Unknown Family Hx - Social History Hx Tobacco Use: No Hx Alcohol Use: No Hx Substance Use: No - Immunization History Hx Tetanus Toxoid Vaccination: No Hx Influenza Vaccination: No Hx Pneumococcal Vaccination: No Review Of Systems Constitutional: Negative for: Fever, Chills Eyes: Negative for: Vision Change Cardiovascular: Negative for: Chest Pain, Palpitations Respiratory: Negative for: Shortness of Breath Gastrointestinal: Positive for: Nausea, Vomiting, Abdominal Pain, Diarrhea. Negative for: Melena, Hematochezia Musculoskeletal: Negative for: Back Pain Neurological: Negative for: Weakness, Numbness, Headache, Dizziness Physical Exam - Physical Exam Appears: Non-toxic, No Acute Distress Skin: Normal Color, Warm Head: Normacephalic Eye(s): bilateral: PERRL Nose: No Flaring, No Discharge Oral Mucosa: Moist Throat: No Erythema, No Drooling Neck: Trachea Midline, Supple Chest: Symmetrical Cardiovascular: Rhythm Regular, No Murmur Respiratory: No Accessory Muscle Use, No Rales, No Rhonchi, No Wheezing Gastrointestinal/Abdominal: Soft, Tenderness (moderate epigastric tenderness), No Distention, No Guarding, No Rebound Back: No CVA Tenderness Extremity: Normal ROM, No Swelling Extremity: Bilateral: Atraumatic, Normal Color And Temperature Neurological/Psych: Oriented x3, Normal Speech Gait: Steady ED Course And Treatment - Laboratory Results Result Diagrams: 12/11/18 07:41 12/11/18 07:41 Lab Interpretation: No Acute Changes Urine POC: Negative O2 Sat by Pulse Oximetry: 99 (RA) Pulse Ox Interpretation: Normal - CT Scan/US CT abdomen/pelvis Other Rad Studies (CT/US): Read By Radiologist, Radiology Report Reviewed CT/US Interpretation: Accession No. : [id number]. Patient Name / ID : SIXTO [id number] / [id number]. Exam Date : 12/11/2018 09:28:30 ( Approved ). Study Comment : Sex / Age : F / 33Y. Creator : Rylee Osullivan. Dictator : Ella Lange MD. Travel Nurse : Back Stayer : Ella Lange MD. Approver2 : Report Date : 12/11/2018 10:04:03. My Comment : . Date of service: 12/11/2018. PROCEDURE: CT Abdomen and Pelvis with contrast. HISTORY: abd pain. COMPARISON: CT abdomen and pelvis with contrast performed 07/17/18. TECHNIQUE: Contrast dose: 100 mL Visipaque 320 IV. Radiation dose: Total exam DLP = 300.39 mGy-cm. This CT exam was performed using one or more of the following dose reduction techniques: Automated exposure control, adjustment of the mA and/or kV according to patient size, and/or use of iterative reconstruction technique. FINDINGS: LOWER THORAX: Mild right basilar atelectasis. No visible pleural effusion or pneumothorax. LIVER: Indeterminate 1.6 x 1.6 cm hepatic dome hypodensity demonstrated on prior examination and characterized as a hemangioma. GALLBLADDER AND BILE DUCTS: Contracted state of gallbladder limits evaluation. PANCREAS: Unremarkable. SPLEEN: Unremarkable. ADRENALS: Unremarkable. KIDNEYS AND URETERS: The kidneys enhance symmetrically. No hydronephrosis or obstructing calculus identified. VASCULATURE: No aortic aneurysm. No significant atherosclerotic calcifications present. BOWEL: Stomach is nondistended. Lack of oral contrast limits evaluation for bowel pathology. Status post colectomy with anastomotic suture material noted at the level of the residual descending left colon and rectum. Diffuse air-filled small bowel may be related to ileus. PERITONEUM: No significant free fluid. No definite free air. LYMPH NODES: No bulky adenopathy identified. BLADDER: Unremarkable. REPRODUCTIVE: Uterus is present. BONES: No acute osseous abnormality is detected. OTHER FINDINGS: None. IMPRESSION: The patient has undergone a colectomy with anastomotic suture material noted at the level of residual descending left colon and rectum. Diffuse air-filled small bowel possibly related to ileus. Correlate clinically. Right basilar atelectasis. 1.6 x 1.6 cm hepatic dome hypodensity indeterminate on this single phase study, however previously characterized as likely hemangioma. Progress Note: Blood work and urine sent to the lab for analysis. Administered 1 bolus IV fluids, 40 mg IV Protonix, 4 mg IV Zofran, 30 mg IV Toradol, and 20 mg IV Pepcid. Will obtain CT Abdomen/Pelvis with IV contrast. Pt was OBS in ED for 4 hrs and remained stable. On re-eval, pt is resting comofrtably, not in any apparent distress. Afebrile, hemodynamicaly stable. Non-toxic. Pt was given PO challenge, tolearte well, (-) vomtiing. [id number]% RA. ENT: No acute findings. neck: SUpple, (-) meningeal sign. Lungs: CTA B/L, BS equal B/L. CVS: (+)S1S2, reg. ABd: benign, (-) guarding, (-) rebound. Back: (-) CVA ten derness. Blood work review and appeas normal, no acute leukocytosis, no electrolites abnr, no evidence of dehydration. LFT- normal results. Imaging review and discussed with pt, hepatic hypodensity 1.6 cm diam noted that appears stable, previously noted on imaging. Pt has clinical findings c/w N/V/D, abdominal cramping pian r/o viral illness, hepatic hemangioma, stable. pt advised. ref. to F/u with PMD, GI, Surgery in 1-2 days for re-eavl. return to ED if any worsening or new changes. Disposition Counseled Patient/Family Regarding: Studies Performed, Diagnosis, Need For Followup, Rx Given - Disposition Referrals: Landon Robins MD [Staff Provider] - Disposition: HOME/ ROUTINE Disposition Time: 11:00 Condition: STABLE Additional Instructions: Encourage fluids Take medication as prescribed Follow up with PMD in 2-3 days for re-evaluation. Return to ED if any worsening or new changes. Prescriptions: Famotidine [Pepcid] 20 mg PO BID #10 tab Pantoprazole Sodium [Protonix] 40 mg PO DAILY #20 ect Instructions: Nausea and Vomiting, Adult (DC), Diarrhea in Adolescents and Adults Forms: [employer] (Albanian) Print Language: ROMANIAN - Clinical Impression Clinical Impression: Vomiting, Diarrhea, Abdominal pain - PA / PUBLIC RELATIONS SPECIALIST / Resident Statement MD/DO has reviewed & agrees with the documentation as recorded. - Scribe Statement The provider has reviewed the documentation as recorded by the Misaibwilla Martins All medical record entries made by the Misaibwilla were at my direction and personally dictated by me. I have reviewed the chart and agree that the record accurately reflects my personal performance of the history, physical exam, medical decision making, and the department course for this patient. I have also personally directed, reviewed, and agree with the discharge instructions and disposition.
[2018-12-11 07:47] LABS: BASO % 0.6 % (0.0-2.0); EOS # 0.2 K/uL (0.0-0.7); EOS % 3.6 % (0.0-4.0); HEMOGLOBIN 11.4 g/dL (11.0-16.0); LYMPH # 1.8 K/uL (1.0-4.3); LYMPH % 27.4 % (20.0-40.0); MEAN CELL VOLUME 90.7 fL (81.0-99.0); MEAN CORPUSCULAR HEMOGLOBIN 30.7 pg (27.0-31.0); MEAN CORPUSCULAR HGB CONC 33.9 g/dL (33.0-37.0); MEAN PLATELET VOLUME 8.6 fL (7.2-11.7); MONO # 0.4 K/uL (0.0-0.8); MONO % 6.7 % (0.0-10.0); NEUT # 4.1 K/uL (1.8-7.0); NEUT % 61.7 % (50.0-75.0); RBC 3.71 Mil/uL (3.80-5.20); RED CELL DISTRIBUTION WIDTH 13.7 % (11.5-14.5); WHITE BLOOD COUNT 6.7 K/uL (4.8-10.8)
[2018-12-11 07:55] LABS: INR 1.1; PROTHROMBIN TIME 11.6 SECONDS (9.7-12.2)
[2018-12-11 07:59] LABS: ALB/GLOB RATIO 1.6 (1.0-2.1); ALBUMIN 3.9 g/dL (3.5-5.0); ALT/SGPT 6 U/L (9-52); AST/SGOT 25 U/L (14-36); BLOOD UREA NITROGEN 16 mg/dL (7-17); CALCIUM 8.5 mg/dl (8.6-10.4); GFR NON-AFRICAN AMERICAN > 60; HCG,QUALITATIVE URINE NEGATIVE (NEGATIVE); LIPASE 80 U/L (23-300)
[2018-12-11 08:01] LABS: SQUAMOUS EPITHIAL 8 /hpf (0-5); URINE BILIRUBIN NEGATIVE (NEGATIVE); URINE BLOOD NEGATIVE (NEGATIVE); URINE CLARITY Hazy (Clear); URINE COLOR Yellow (YELLOW); URINE GLUCOSE (UA) NORMAL (Normal); URINE LEUKOCYTE ESTERASE NEG Leu/uL (Negative); URINE PROTEIN NEGATIVE (NEGATIVE)
[2018-12-11] MEDS ORDERED: Iodixanol 320 MG/ML 100 ML BOTTLE IV ONE (09:07)
--- NOTE | 2018-12-11 11:26 | CT ---
Date of service: 12/11/2018 PROCEDURE: CT Abdomen and Pelvis with contrast HISTORY: abd pain COMPARISON: CT abdomen and pelvis with contrast performed 07/17/18 TECHNIQUE: Contrast dose: 100 mL Visipaque 320 IV Radiation dose: Total exam DLP = 300.39 mGy-cm. This CT exam was performed using one or more of the following dose reduction techniques: Automated exposure control, adjustment of the mA and/or kV according to patient size, and/or use of iterative reconstruction technique. FINDINGS: LOWER THORAX: Mild right basilar atelectasis. No visible pleural effusion or pneumothorax. LIVER: Indeterminate 1.6 x 1.6 cm hepatic dome hypodensity demonstrated on prior examination and characterized as a hemangioma. GALLBLADDER AND BILE DUCTS: Contracted state of gallbladder limits evaluation. PANCREAS: Unremarkable. SPLEEN: Unremarkable. ADRENALS: Unremarkable. KIDNEYS AND URETERS: The kidneys enhance symmetrically. No hydronephrosis or obstructing calculus identified. VASCULATURE: No aortic aneurysm. No significant atherosclerotic calcifications present. BOWEL: Stomach is nondistended. Lack of oral contrast limits evaluation for bowel pathology. Status post colectomy with anastomotic suture material noted at the level of the residual descending left colon and rectum. Diffuse air-filled small bowel may be related to ileus. PERITONEUM: No significant free fluid. No definite free air. LYMPH NODES: No bulky adenopathy identified. BLADDER: Unremarkable. REPRODUCTIVE: Uterus is present. BONES: No acute osseous abnormality is detected. OTHER FINDINGS: None. IMPRESSION: The patient has undergone a colectomy with anastomotic suture material noted at the level of residual descending left colon and rectum. Diffuse air-filled small bowel possibly related to ileus. Correlate clinically. Right basilar atelectasis. 1.6 x 1.6 cm hepatic dome hypodensity indeterminate on this single phase study, however previously characterized as likely hemangioma.
[2018-12-11 11:41] VITALS: O2SAT 99
[2018-12-11 13:04] VITALS: BP 90/39; PULSE 60; RESP 18; TEMP 98.5
== END 2018-12-11 12:35 | disposition home or self-care (01) ==
LOC: C.ER 06:53
DX: R10.13 Epigastric pain (principal); R11.10 Vomiting, unspecified; R19.7 Diarrhea, unspecified
CPT/HCPCS: 74177; 80053; 81001; 83690; 84703; 85025; 85610; 85730; 96361; 96374; 96375; 99285; C9113; J1885; J2405; J7030; Q9967

== ENCOUNTER 2019-01-11 09:07 | Outpatient (CLI) | payer OTHER, SELFPAY | END 2019-01-11 09:08 | disposition home or self-care (01) | LOC: C.USIC 09:07 | DX: R10.11 Right upper quadrant pain (principal) ==

== ENCOUNTER 2019-01-22 06:36 | Day surgery (SDC) | payer SELFPAY ==
[2019-01-22 07:00] VITALS: BMI 21.9
--- NOTE | 2019-01-22 07:13 | CP.SDSHP ---
<Hayley Blackwell - Last Filed: 01/22/19 07:11> Same Day Surgery H & P - History Proposed Procedure: EGD Pre-Op Diagnosis: epigastric pain. heartburn. persistent nausea and vomiting - Previous Medical/Surgical History Cardiac: Hypertension Endocrine/Metabolic: Thyroid Disease Comments: GERD Previous Surgical History: colectomy - Allergies Allergies: Allergies No Known Allergies Allergy (Verified 01/22/19 06:59) - Current Medications Current Medications: pantoprazole reglan synthroid pepcid colace - Physical Exam General Appearance: no acute distress Mental Status: Alert & Oriented x3 Neuro: WNL Heart: WNL Lungs: WNL GI: WNL - {Optional Preform as Required} Abdomen: Other (abd scar) - Impression Impression: epigastric pain. heartburn. persistent nausea Pt. Evaluated Today:Candidate for Anesthesia & Procedure: Yes - Date & Time Date: 01/22/19 Time: 07:00 Short Stay Discharge - Short Stay Discharge Admitting Diagnosis/Reason for Visit: HEARTBURN / EPIGASTRIC PAIN / CONSTIPATION Disposition: HOME/ ROUTINE <Jonathan Berger - Last Filed: 01/22/19 08:01> Same Day Surgery H & P - Allergies Allergies: Allergies No Known Allergies Allergy (Verified 01/22/19 06:59) - Physical Exam Vital Signs: Vital Signs 01/22/19 01/22/19 07:14 07:27 Temperature 97.7 F Pulse Rate 67 67 Respiratory 19 Rate Blood Pressure 96/66 L O2 Sat by Pulse 99 Oximetry Attending/Attestation - Attestation I have personally seen and examined this patient.: Yes I have fully participated in the care of the patient.: Yes I have reviewed all pertinent clinical information: Yes Notes (Text): 01/22/19 07:45 Patient seen and risks/benefits discussed. EGD to assess epigastric pain and heartburn.
[2019-01-22] MEDS ORDERED: Lactated Ringer's 500 ML IV ONE (07:47)
[2019-01-22] MEDS ORDERED: Lidocaine Hydrochloride 5 ML INJ ONE (07:51)
[2019-01-22] MEDS ORDERED: Propofol 10 mg/ml Inj (20 ML) ONE (07:51)
[2019-01-22 08:38] VITALS: RESP 16
[2019-01-22 08:56] VITALS: BP 100/61; PULSE 65; TEMP 98.2; O2SAT 99
== END 2019-01-22 09:15 | disposition home or self-care (01) ==
LOC: C.ENDO 06:36
PROVIDERS: ATTEND Internal Medicine Gastroenterology
DX: R10.13 Epigastric pain (principal); R12 Heartburn; K59.00 Constipation, unspecified; K20.9 Esophagitis, unspecified; K29.70 Gastritis, unspecified, without bleeding
CPT/HCPCS: 43239; 84703; 88305; 88312; 88313; 88342; J2704; J7120